=== PATIENT | female | born 1940 | race Caucasian/White ===

== ENCOUNTER → 2018-04-25 08:54 | Outpatient (CLI) | payer MEDICARE, SELFPAY ==
[2018-04-25 09:54] LABS: AST(SGOT) 19 U/L (15-37); Alanine Aminotransfer ALT/SGPT 20 U/L (13-56); Albumin, Serum 3.2 g/dL (3.2-5.0); Alkaline Phosphatase 67 U/L (45-117); Bilirubin, Direct 0.19 mg/dL (0.00-0.30); Cholesterol 155 mg/dL (200); Globulin 3.8 g/dL (2.2-4.2); High Density Lipoprotein 74 mg/dL; Triglycerides 50 mg/dL; Very Low Density Lipoprotein 10 mg/dL (5-40)
== END ==
PROVIDERS: Nurse Practitioner Family; Family Provider Family Medicine; PCP Family Medicine; Visit Provider Internal Medicine Cardiovascular Disease
DX: E78.5 Hyperlipidemia, unspecified (principal)
CPT/HCPCS: 36415; 80061; 80076

== ENCOUNTER 2018-05-07 22:23 | Emergency (ER) | payer MEDICARE, SELFPAY ==
[2018-05-07] VITALS (8 sets, daily range): BP systolic 107–169; BP diastolic 71–99; PULSE 85–108; RESP 15–29; TEMP 36.8–37.1; O2SAT 96–98; BMI 29.0
--- NOTE | 2018-05-07 22:25 | CT_ITS ---
STUDY: CT BRAIN WITHOUT CONTRAST REASON FOR EXAM: Female, 77 years old. Left facial droop and slurred speech. History of prior right CVA in 2016. Additional history of breast cancer and hypertension. RADIATION DOSAGE (If Supplied By Facility): CTDIvol = ( 44.99 ) mGy, DLP = ( 779.24 ) mGycm TECHNIQUE: Transaxial CT imaging of the brain was performed without administration of intravenous contrast material. Individualized dose optimization techniques were used for this CT. COMPARISON: Prior head CT exam of February 18, 2016 FINDINGS: Normal soft tissue structures. Normal calvarium. Mature demarcation of an old large right middle cerebral infarct involving the temporal lobe, insula, lateral basal ganglia and parietal lobe. Negative for a discernible new infarct zone. There are areas of decreased attenuation within the white matter tracts of the supratentorial brain, consistent with microvascular disease changes. Normal basal ganglia and thalami. Normal brainstem. Normal cerebellum. There is no intracranial hemorrhage. There are no findings of an acute ischemic infarction. Normal paranasal sinuses. CT/Brain/Head without Contrast IMPRESSION: Negative for acute hemorrhage, hematoma or demonstration of a new nonhemorrhagic infarct zone. 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 N.B. : The above information has been verbally conveyed by Farideh Gonzalez MD to Aquilino Reilly, Referring Physician, on 05/07/2018 22:47:01 (ET). Electronically Signed: Farideh Gonzalez MD at 22:48 EDT , Service support , N.B. : The above information has been verbally conveyed by Farideh Gonzalez MD to Aquilino Reilly, Referring Physician, on 05/07/2018 22:47:01 (ET).
--- NOTE | 2018-05-07 22:25 | RAD_ITS ---
STUDY: X-RAY CHEST REASON FOR EXAM: Female, 77 years old. Slurred speech and left facial droop. History of atrial fibrillation and right mastectomy secondary to malignancy. TECHNIQUE: Single AP portable view of the chest. COMPARISON: None. FINDINGS: The lungs are clear and expanded. There is no demonstrated pleural abnormality. Normal size heart. Normal mediastinum and gerry. Normal visualized pulmonary arteries. Normal visualized aortic arch and descending thoracic aorta. There are diffuse degenerative changes of the visualized thoracic spine. Normal visualized ribs, clavicles, and shoulders. There is no demonstrated abnormality of the visualized soft tissue structures of the upper abdomen. RAD/Chest 1 View IMPRESSION: No acute cardiopulmonary findings. Negative for consolidation, focal atelectasis or pleural effusion. Normal cardiac size. Electronically Signed: Farideh Gonzalez MD at 22:54 EDT , Service support ,
--- NOTE | 2018-05-07 22:25 | EKG12_ITS ---
Test Reason : STROKE Blood Pressure : / mmHG Vent. Rate : 090 BPM Atrial Rate : 090 BPM P-R Int : 144 ms QRS Dur : 062 ms QT Int : 358 ms P-R-T Axes : 074 038 011 degrees QTc Int : 437 ms Normal sinus rhythm Low voltage QRS Nonspecific ST abnormality Abnormal ECG Confirmed by KATIE PRAJAPATI, JAYLIN ([id number]), film editor MERI DEGROOT ([id number]) on 05/12/2018 3:43:06 PM Referred By: LB Confirmed By:JAYLIN WILSON MD
--- NOTE | 2018-05-07 22:34 | CT_ITS ---
STUDY: CTA OF THE BRAIN REASON FOR EXAM: Female, 77 years old. CVA, left facial droop and slurred speech, also left facial and arm twitch. Hx CVA 2016, breast cancer with right mastectomy. RADIATION DOSAGE (If Supplied By Facility): CTDIvol = ( 16.46 ) mGy, DLP = ( 605.91 ) mGycm TECHNIQUE: CT angiography was performed with a multi-detector CT scanner. Data acquisition was obtained from the skull base through the vertex following intravenous administration of 75 ml of ISO 370. MIP images were reconstructed from the axial data set. Post-processing of the angiographic images was performed, with multiplanar reformation and 3D reconstruction. Individualized dose optimization techniques were used for this CT. COMPARISON: 4.9.16 FINDINGS: Normal bilateral petrous carotid arteries. There is calcified plaque formation of the right cavernous carotid artery, with a mild stenosis (less than 50%). There is calcified plaque formation of the left cavernous carotid artery, with a mild stenosis (less than 50%). Normal right A1 segments of the anterior cerebral artery. Normal left A1 segments of the anterior cerebral artery. Normal intact anterior communicating artery (ACOM). Normal bilateral A2 segments of the anterior cerebral arteries. Normal right M1 and M2 segments of the middle cerebral arteries, with a normal M1 bifurcation. Normal left M1 and M2 segments of the middle cerebral arteries, with a normal M1 bifurcation. Normal right posterior communicating artery (PCOM). Normal left posterior communicating artery (PCOM). Normal bilateral vertebral arteries. Normal basilar artery with a normal basilar bifurcation. The visualized bilateral superior cerebellar (SCA) arteries are normal. Normal bilateral P1, P2 and visualized P3 segments of the posterior cerebral arteries. There is no demonstrated aneurysm of the [place]. Old left MCA infarct. IMPRESSION: There is calcified plaque formation of the right cavernous carotid artery, with a mild stenosis (less than 50%). There is calcified plaque formation of the left cavernous carotid artery, with a mild stenosis (less than 50%). Electronically Signed: Ricardo Toussaint MD at 23:36 EDT , Service support , STUDY: CTA NECK WITH CONTRAST REASON FOR EXAM: Female, 77 years old. CVA, left facial droop and slurred speech, also left facial and arm twitch. Hx CVA 2015, breast cancer with right mastectomy. RADIATION DOSAGE (If Supplied By Facility): CTDIvol = ( 16.46 ) mGy, DLP = ( 605.91 ) mGycm TECHNIQUE: CT angiography with multi-detector data acquisition was performed from the aortic arch to the skull base following intravenous administration of 75mL ml of Isovue 370 contrast. MIP images were reconstructed from the axial data set. Post-processing of the angiographic images was performed, with multiplanar reformation and 3D reconstruction. Individualized dose optimization techniques were used for this CT. COMPARISON: February 11, 2016 FINDINGS: AORTIC ARCH: Normal visualized aortic arch. Normal origins of the brachiocephalic, left common carotid, and left subclavian arteries. RIGHT CAROTID ARTERIES: Normal right common carotid artery (CCA). Normal right common carotid bulb. There is mild atherosclerotic plaque formation of the origin of the right internal carotid artery with less than 50% cross sectional diameter stenosis. Normal visualized cervical portion of the right internal carotid artery. Normal origin of the right external carotid artery (ECA). LEFT CAROTID ARTERIES: Normal left common carotid artery (CCA). Normal left common carotid bulb. There is mild atherosclerotic plaque formation of the origin of the left internal carotid artery with less than 50% cross sectional diameter stenosis. Normal visualized cervical portion of the left internal carotid artery. Normal origin of the left external carotid artery (ECA). VERTEBRAL ARTERIES: Normal bilateral vertebral arteries. CT/CTA Neck W/WO Contrast IMPRESSION: There is no hemodynamically significant stenosis. Calculated stenosis of the Right and Left ICA's is less than 50%. Electronically Signed: Ricardo Toussaint MD at 23:37 EDT , Service support ,
--- NOTE | 2018-05-07 22:34 | CT_ITS ---
STUDY: CTA OF THE BRAIN REASON FOR EXAM: Female, 77 years old. CVA, left facial droop and slurred speech, also left facial and arm twitch. Hx CVA 2016, breast cancer with right mastectomy. RADIATION DOSAGE (If Supplied By Facility): CTDIvol = ( 16.46 ) mGy, DLP = ( 605.91 ) mGycm TECHNIQUE: CT angiography was performed with a multi-detector CT scanner. Data acquisition was obtained from the skull base through the vertex following intravenous administration of 75 ml of ISO 370. MIP images were reconstructed from the axial data set. Post-processing of the angiographic images was performed, with multiplanar reformation and 3D reconstruction. Individualized dose optimization techniques were used for this CT. COMPARISON: 4.9.16 FINDINGS: Normal bilateral petrous carotid arteries. There is calcified plaque formation of the right cavernous carotid artery, with a mild stenosis (less than 50%). There is calcified plaque formation of the left cavernous carotid artery, with a mild stenosis (less than 50%). Normal right A1 segments of the anterior cerebral artery. Normal left A1 segments of the anterior cerebral artery. Normal intact anterior communicating artery (ACOM). Normal bilateral A2 segments of the anterior cerebral arteries. Normal right M1 and M2 segments of the middle cerebral arteries, with a normal M1 bifurcation. Normal left M1 and M2 segments of the middle cerebral arteries, with a normal M1 bifurcation. Normal right posterior communicating artery (PCOM). Normal left posterior communicating artery (PCOM). Normal bilateral vertebral arteries. Normal basilar artery with a normal basilar bifurcation. The visualized bilateral superior cerebellar (SCA) arteries are normal. Normal bilateral P1, P2 and visualized P3 segments of the posterior cerebral arteries. There is no demonstrated aneurysm of the [place]. Old left MCA infarct. IMPRESSION: There is calcified plaque formation of the right cavernous carotid artery, with a mild stenosis (less than 50%). There is calcified plaque formation of the left cavernous carotid artery, with a mild stenosis (less than 50%). Electronically Signed: Ricardo Toussaint MD at 23:36 EDT , Service support , STUDY: CTA NECK WITH CONTRAST REASON FOR EXAM: Female, 77 years old. CVA, left facial droop and slurred speech, also left facial and arm twitch. Hx CVA 2015, breast cancer with right mastectomy. RADIATION DOSAGE (If Supplied By Facility): CTDIvol = ( 16.46 ) mGy, DLP = ( 605.91 ) mGycm TECHNIQUE: CT angiography with multi-detector data acquisition was performed from the aortic arch to the skull base following intravenous administration of 75mL ml of Isovue 370 contrast. MIP images were reconstructed from the axial data set. Post-processing of the angiographic images was performed, with multiplanar reformation and 3D reconstruction. Individualized dose optimization techniques were used for this CT. COMPARISON: February 11, 2016 FINDINGS: AORTIC ARCH: Normal visualized aortic arch. Normal origins of the brachiocephalic, left common carotid, and left subclavian arteries. RIGHT CAROTID ARTERIES: Normal right common carotid artery (CCA). Normal right common carotid bulb. There is mild atherosclerotic plaque formation of the origin of the right internal carotid artery with less than 50% cross sectional diameter stenosis. Normal visualized cervical portion of the right internal carotid artery. Normal origin of the right external carotid artery (ECA). LEFT CAROTID ARTERIES: Normal left common carotid artery (CCA). Normal left common carotid bulb. There is mild atherosclerotic plaque formation of the origin of the left internal carotid artery with less than 50% cross sectional diameter stenosis. Normal visualized cervical portion of the left internal carotid artery. Normal origin of the left external carotid artery (ECA). VERTEBRAL ARTERIES: Normal bilateral vertebral arteries. CT/CTA Head W/WO Contrast IMPRESSION: There is no hemodynamically significant stenosis. Calculated stenosis of the Right and Left ICA's is less than 50%. Electronically Signed: Ricardo Toussaint MD at 23:37 EDT , Service support ,
[2018-05-07 22:50] LABS: Absolute Lymphocyte Count 3.38 X10^3/ul (0.83-4.51); Absolute Neutrophil Count 3.8 X10^3/uL (2.0-7.7); Basophil# 0.03 X10^3/uL; Basophil% 0.4 % (0-1); Eosinophil# 0.19 X10^3/uL; Eosinophils% 2.3 % (0-5); Hematocrit 39.8 % (37-47); Hemoglobin 12.9 g/dl (12.0-15.0); Lymphocyte # 3.38 X10^3/ul (4.0); Lymphocyte % 40.1 % (19-41); Mean Corp Hgb Conc 32.4 g/gl (32-36); Mean Corpuscular Volume 98.8 fL (81-99); Mean Platelet Vol. 10.9 fl (6.2-12.0); Monocyte# 1.07 X10^3/uL; Monocyte% 12.7 % (0-10); Neutrophil # 3.75 X10^3/uL (2.7-7.7); Neutrophil % 44.4 % (47-70); Platelet Count 233 K/mm3 (150-450); RBC Distribution Width CV 12.3 % (11.6-14.6); RBC Distribution Width SD 44.5 fl (35.1-43.9); Red Blood Count 4.03 M/mm3 (4.2-5.4); White Blood Count 8.4 K/mm3 (4.4-11.0)
[2018-05-07 22:51] LABS: POSITIVE COUNT NO; POSITIVE DIFFERENTIAL NO; POSITIVE MORPHOLOGY NO
--- NOTE | 2018-05-07 22:51 | ED.VISSUMM ---
- ER Visit Summary Date of Service: 05/07/18 Chief Complaint: Stroke symptoms History of Present Illness: The patient is a 77 F presents by EMS for acute symptoms of stroke starting at 9:30 PM. Witnessed by daughter slurred speech and facial drooping. EMS was called, within the arrival they state symptoms were resolved, however when she is placed on the gurney, facial droop return. Blood glucose 134, blood pressure systolic 160 over palp. Daughter states patient is left-hand dominant. Patient had stroke in 2016 requiring TPA. However currently on Eliquis twice a day for findings of atrial fibrillation at that time. Previously on amiodarone however taken off. Last dose of Eliquis was 5 PM today. There is no residual deficits from her stroke 2 years ago. Her speech changes are new. Physical Examination: General: Alert and oriented ?3, no acute distress HEENT: Normocephalic, atraumatic. Moist mucosa membranes. Right lip droop. patient occasional twitching of the left side of the face. There was left tongue abrasion no active bleeding. Neck: supple, nontender. Cardiovascular: Regular rate and rhythm, no murmurs Respiratory: Normal breath sounds, symmetric, no distress Abdomen: Soft, nontender, nondistended Extremities: Nontender, no edema, pulses intact ?4 Neuro: NIH equal 4 for right lip droop, dysarthria, left lower extremity drift, left arm and leg paresthesia. Test Results: EKG: Sinus rate of 90, artifacts noted. No ST or T-wave changes. CT head: No acute process. WBC 8.4, hemoglobin 12.9. Platelets 233. Creatinine 0.76. Troponin normal. Chest x-ray negative. Emergency Department Course and Treatment: Stroke protocol was activated. Discussed with neurology Dr. Pierre at 2235, and pending CT read at this time. Discuss patient is on Eliquis, therefore TPA is contraindicated at this time. Did recommend CTA head and neck for rule out thrombus. Blood pressure is 107/71 on arrival, she will be given IV fluids to increase her blood pressure. CT scan discussion with radiology shows no acute findings at this time. Discussed with neurology, findings of acute thrombus will need transfer to tertiary care for thrombectomy. If she has worsening symptoms in the ED would need transfer for neuro ICU. Discussed with daughter plan of care. 2300: CTA pending. Repeat NIH was a 5 for worsening left arm drift. Discussed with family for transfer, there he were okay with [facility]. I spoke with the ED physician, Dr. Davey, updated on findings and worsening symptoms and recommendations by neurology to go to tertiary care for neuro ICU. Discussed with focal twitching arms and face, he discussed typically anti-epileptic are not started by their facility, therefore will be held at this time. He accepts transfer to the ED for evaluation. Family updated. 2340: Patient being transported out the department. CTA results returned noting no acute thrombus, there was less than 50% narrowing of ICAs bilaterally. ED doc, Dr. Davey at [place] updated on findings. Treatment Plan: [] Disposition: Transfer to [facility] Impression: Acute CVA This note was generated with [employer] dictation software. It may contain incorrect words, spelling, and punctuation that were not noted in review of the chart prior to signing ED Disposition - Plan for ED Patient: Disposition: [facility] Chief Complaint: Neuro S/Sx Diagnosis: Acute CVA (cerebrovascular accident) Referrals: Earnest Powers MD [Primary Care Provider] -
--- NOTE | 2018-05-07 22:56 | ED.DCSUM_ITS ---
- ER Visit Summary Date of Service: 05/07/18 Chief Complaint: Stroke symptoms History of Present Illness: The patient is a 77 F presents by EMS for acute symptoms of stroke starting at 9:30 PM. Witnessed by daughter slurred speech and facial drooping. EMS was called, within the arrival they state symptoms were resolved, however when she is placed on the gurney, facial droop return. Blood glucose 134, blood pressure systolic 160 over palp. Daughter states patient is left-hand dominant. Patient had stroke in 2016 requiring TPA. However currently on Eliquis twice a day for findings of atrial fibrillation at that time. Previously on amiodarone however taken off. Last dose of Eliquis was 5 PM today. There is no residual deficits from her stroke 2 years ago. Her speech changes are new. Physical Examination: General: Alert and oriented ?3, no acute distress HEENT: Normocephalic, atraumatic. Moist mucosa membranes. Right lip droop. patient occasional twitching of the left side of the face. There was left tongue abrasion no active bleeding. Neck: supple, nontender. Cardiovascular: Regular rate and rhythm, no murmurs Respiratory: Normal breath sounds, symmetric, no distress Abdomen: Soft, nontender, nondistended Extremities: Nontender, no edema, pulses intact ?4 Neuro: NIH equal 4 for right lip droop, dysarthria, left lower extremity drift, left arm and leg paresthesia. Test Results: EKG: Sinus rate of 90, artifacts noted. No ST or T-wave changes. CT head: No acute process. WBC 8.4, hemoglobin 12.9. Platelets 233. Creatinine 0.76. Troponin normal. Chest x-ray negative. Emergency Department Course and Treatment: Stroke protocol was activated. Discussed with neurology Dr. Peirre at 2235, and pending CT read at this time. Discuss patient is on Eliquis, therefore TPA is contraindicated at this time. Did recommend CTA head and neck for rule out thrombus. Blood pressure is 107/71 on arrival, she will be given IV fluids to increase her blood pressure. CT scan discussion with radiology shows no acute findings at this time. Discussed with neurology, findings of acute thrombus will need transfer to tertiary care for thrombectomy. If she has worsening symptoms in the ED would need transfer for neuro ICU. Discussed with daughter plan of care. 2300: CTA pending. Repeat NIH was a 5 for worsening left arm drift. Discussed with family for transfer, there he were okay with [facility]. I spoke with the ED physician, Dr. Davey, updated on findings and worsening symptoms and recommendations by neurology to go to tertiary care for neuro ICU. Discussed with focal twitching arms and face, he discussed typically anti- epileptic are not started by their facility, therefore will be held at this time. He accepts transfer to the ED for evaluation. Family updated. 2340: Patient being transported out the department. CTA results returned noting no acute thrombus, there was less than 50% narrowing of ICAs bilaterally. ED doc, Dr. Davey at [place] updated on findings. Treatment Plan: [] Disposition: Transfer to [facility] Impression: Acute CVA This note was generated with [employer] dictation software. It may contain incorrect words, spelling, and punctuation that were not noted in review of the chart prior to signing ED Disposition - Plan for ED Patient: Disposition: [facility] Chief Complaint: Neuro S/Sx Diagnosis: Acute CVA (cerebrovascular accident) Referrals: Earnest Powers MD [Primary Care Provider] -
--- NOTE | 2018-05-07 23:05 | ED.RN ---
CONTACTING [facility] TRANSFER LINE FOR DR ASHER
[2018-05-07 23:06] LABS: Anion Gap 5 (5-15); BUN 17 mg/dL (7-18); BUN/Creat Ratio 22.3 RATIO (10-20); Chloride 107 mmol/L (98-107); Creatinine, Serum 0.76 mg/dL (0.55-1.02); EST Glomerular Filtration Rate 78 mL/min (>60); Est Glom Filt Rate - Afr Amer 94 mL/min (>60); Estimated Creatinine Clearance 40.68 ml/min; Glucose 126 mg/dL (74-106); Potassium 4.5 mmol/L (3.5-5.1); Sodium Level 144 mmol/L (136-145)
--- NOTE | 2018-05-07 23:08 | ED.RN ---
AMPARO AYALA DECLINED DOES NOT TAKE PT INSURANCE
[2018-05-07] MEDS: 0.45% Normal Saline 1,000 ML 150 ML IV (23:13)
[2018-05-07 23:14] LABS: International Normalized Ratio 1.4; Prothrombin Time (Protime)PT. 17.6 SECONDS (11.7-14.9)
[2018-05-07 23:15] LABS: Partial Thromboplast Time 33.2 Seconds (24.1-36.2)
[2018-05-07] MEDS: LORazepam 2 MG/ML Syringe 0.5 MG IV (23:33)
[2018-05-08 08:16] LABS: Bedside Glucose 122 mg/dL (70-110)
== END 2018-05-07 23:41 | disposition short-term general hospital (02) ==
PROVIDERS: Emergency Medicine; Emergency Provider Emergency Medicine; Family Provider Family Medicine; PCP Family Medicine
DX: I63.9 Cerebral infarction, unspecified (principal); R47.81 Slurred speech; R29.810 Facial weakness; R29.705 NIHSS score 5; E78.00 Pure hypercholesterolemia, unspecified; Z86.73 Personal history of transient ischemic attack (TIA), and cerebral infarction without residual deficits; Z79.01 Long term (current) use of anticoagulants; Z79.899 Other long term (current) drug therapy
CPT/HCPCS: 70450; 70496; 70498; 71045; 80048; 82962; 84484; 85025; 85610; 85730; 93005; 96361; 96374; 99285; 99291; J7030; J7040; Q9967; A4216

== ENCOUNTER 2018-05-09 13:40 | Inpatient (IN) | payer MEDICARE, SELFPAY ==
[2018-05-09 14:05] VITALS: BP 117/54; PULSE 68; RESP 16; TEMP 36.8; O2SAT 99; BMI 27.7
--- NOTE | 2018-05-09 14:47 | REHABEVAL_ITS ---
Admission Information Status Changes from Prescreening?: No changes Identified Actual Problem List:: Mobility Impaired, Self Care Deficit, BP, Hypertension Potential Problem List:: DVT, Bleeding, Infection, UTI, Aspiration, Falls, Skin Integrity, Depression Risk of Complications DVT: LMWH, CAYDEN Hose, Sequential Compression Device Bleeding: Monitor Lab Values, Nursing to Teach Precautions for anti-coagulation therapy., Wound, if applicable, to be assessed every shift., Stroke patients assessed for lethargy or change in status. Infection: Clinical Staff to Monitor for S/S of infection:, S/S of infection include fever, redness, warmth, etc. Urinary Tract Infection: Monitor for frequency, burning, discomfort, or incontinence., Nursing will obtain urine sample for urinalysis and C&S when ordered. Aspiration: Clinical staff will monitor for coughing, drooling, congestion., Speech will evaluate swallowing and dsyphasia., Nursing will monitor patient swallowing during meals. Falls: Patient will be evaluated for Fall Precautions, Patient will be placed on Fall Precautions as indicated per protocol. Skin Breakdown: Nursing will assess skin daily using assessment tool., Nursing will place on Skin Breakdown Precautions as indicated. Pain: Clinical staff will assess patient's pain level per protocol., Medications will be given, if needed, and the pain level reassessed., Other methods: Massage, distraction, decrease stimulus, etc. used PRN. Plan of Care Patient requires physician specializing in physical medicine and rehab oversight to provide close medical supervision of rehab issues including: Pain Management, Sleep Problems, Bowel and Bladder, Medical and co-morbidity Management, DVT prophylaxis, Rehabilitation Leadership, Coordination of treatment team Patient needs Physical Therapy: For a minimum of 1 hour, At least 5 out of 7 days Patient needs Physical Therapy to improve:: Mobility, Mobility, Mobility, Strengthening, Transfers, Stretching, ROM, Endurance, Stairs, Gait, Balance Patient needs Occupational Therapy: For a minimum of 1 hour, At least 5 out of 7 days Patient needs Occupational Therapy to improve ADL's incl.: Eating, Grooming, Bathing, Dressing, Toileting, Toilet transfers, Community Reintegration, Higher functioning activities, Household tasks, Adaptive Equipment, Splinting, Other activities as determined Patient requires speech therapy: For a minimum of 1 hour, At least 5 out of 7 days Patient requires speech therapy for: Swallowing, Cognition, Language Skills, Compensatory Strategies Patient requires 27/05 Rehabilitation Nursing for: Pain Issues, Identifying and preventing risk factors, Monitoring and reporting current medical conditions, Assisting with ambulation, transfer, and all ADL's, Teaching patients about disease process and medications, Family teaching, Providing safe environment, Bowel and Bladder Issues, Skin integrity, Medication Management Patient needs Electronic Typesetting Machine Operator/ Case Management for: Discharge Planning, Arranging Home Equipment or Services, Family Interventions Patient needs Dietary and Nutrition Services for: Adequate Nutrition, Nutritional Supplements, Nutritional Education Goals Patient will remain: free from falls, or injury at time of discharge. Patient will perform bed mobility at: MOD I level of assist. Patient will complete transfers from bed to chair at: MOD I level of assist. Patient will ambulate: 100 feet, with MOD I assist, with LRD Patient will complete upper body dressing at: MOD I level of assist. Patient will complete lower body dressing at: MOD I level of assist. Patient will complete toileting at: MOD I level of assist. Patient will perform bathing at: MOD I level of assist. Patient will complete grooming at: MOD I level of assist. Patient will complete home management skills at: MOD I level of assist. Patient will achieve: 12 stairs, at MOD I assist Patient will have pain level of: of 3 or less Patient's skin will: remain intact, free from infection. Patient will receive: adequate nutrition. Discharge Planning Pt Prognosis for Sig. Practical Improv. w/in Reasonable Time: Good Estimated Length of stay (days): 7 Anticipated D/C Destination: Home Was Preadmission Assessment Accurate?: Yes
--- NOTE | 2018-05-09 15:16 | PCM.PROGNOTE ---
<Coco Chen - Last Filed: 05/09/18 15:25> Subjective: Patient seen and examined. Complains of generalized weakness. States she overall feels tired. Complains of sore tongue secondary to biting tongue during seizure. Denies other specific complaints. Denies GI/ complaints. - Physical Exam General: Alert, Oriented x3, Cooperative, No apparent distress HEENT: Atraumatic, PERRLA, EOMI, Normocephalic Neck: Supple, No JVD, Negative Carotid Bruits Lungs: Clear to auscultation, Normal air movement Cardiovascular: Regular rate, No murmurs Abdomen: Bowel Sounds Present, Soft, Non Tender, Non-Distended Extremities: No clubbing, No cyanosis, No edema, Capillary Refill Less than 3 Seconds Skin: No rashes, No breakdown Musculoskeletal: No Tenderness to Palpation of Joints or Extremities Neurological: Cranial nerves II-XII grossly intact, Neuro grossly intact, - - Left side slightly weaker than right. Psych/Mental Status: Normal Affect, Appropriate Vital Signs Temp Pulse Resp BP Pulse Ox 98.3 F 68 16 117/54 L 99 05/09/18 14:05 05/09/18 14:05 05/09/18 14:05 05/09/18 14:05 05/09/18 14:05 Oxygen Delivery Method Room Air Weight: 73.3 kg Body Mass Index (BMI) 27.7 Finger Stick Blood Glucose 122 Medical Necessity - Tobacco Use Smoking Status: Never smoker Assessment/Plan Patient is a 77-year-old female admitted to rehab unit 05/09/2018 due to debility, weakness status post seizure. Patient initially presented to [facility] ER 05/07/2018 due to left facial droop and slurred speech. CT of brain showed no acute hemorrhage, hematoma or demonstration of new nonhemorrhagic infarct zone. 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 Patient was transferred to [facility] for further evaluation. She was not found to have a new infarct. 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 Her other past medical history includes paroxysmal atrial fibrillation, hypertension, hyperlipidemia, history of breast cancer. 1. Physical debility, weakness secondary to new diagnosis seizure disorder and previous CVA-patient had chronic mild left-sided weakness secondary to previous right MCA infarct approximately 2 years ago. Following new diagnosis seizure disorder, patient states left-sided weakness is increased. PT/OT. 2. Seizure disorder-no further episodes. Seizure precautions. Fall precautions. Continue Keppra regimen. 3. Paroxysmal atrial fibrillation-rate controlled. Continue Eliquis and metoprolol regimen. Patient follows with Dr. Carter. 4. Hypertension-stable, continue home metoprolol regimen. 5. Hyperlipidemia-continue statin. 6. History of breast cancer-approximately 30 years ago. Status post right mastectomy, radiation, chemotherapy. DVT prophylaxis-Eliquis. This patient was seen by REHANA Arceo under the supervision of Dr. Montgomery. <Alan Montgomery E - Last Filed: 05/09/18 18:21> - Physical Exam Vital Signs Temp Pulse Resp BP Pulse Ox 98.3 F 68 16 117/54 L 99 05/09/18 14:05 05/09/18 14:05 05/09/18 14:05 05/09/18 14:05 05/09/18 14:05 Oxygen Delivery Method Room Air Weight: 161 lb 9.581 oz Body Mass Index (BMI) 27.7 Finger Stick Blood Glucose 122 Assessment/Plan Hospitalist note: I am seeing this patient in conjunction with Coco Chen. I independently seen and examined the patient. Progress note above reviewed and I agree with above treatment plan. Patient was admitted to rehabilitation unit for debility, functional decline after she had a seizure. Initially, presented to our ER for left facial droop and slurred speech. Workup for stroke was unremarkable. She was found to have a right old MCA stroke. She was transferred to [facility] for evaluation. Acute and new stroke ruled out. She was diagnosed with probable poststroke seizure, was started on Keppra. At this time, she has no significant complaints. She is resting comfortably. Her vital signs are stable. - Physical Exam General: Alert, Oriented x3, Cooperative, No apparent distress. HEENT: Atraumatic, PERRLA, EOMI. Neck: Supple, No JVD, Negative Carotid Bruits, Trachea Midline, Thyroid Normal. Lungs: Clear to auscultation, Normal air movement, No rhonchi, No wheeze, No rales. Cardiovascular: Regular rate, Regular Rhythm, Normal S1, Normal S2, PMI Normal. Abdomen: Bowel Sounds Present, Soft, Non Tender, Non-Distended, No Hepato-splenomegaly. Extremities: No clubbing, No cyanosis, No edema Skin: No rashes, No breakdown Neurological: Cranial nerves are intact, minimal weakness in the left side. Vital Signs are stable. Assessment and plan: #1 physical debility/functional decline: Secondary to new seizure and history of CVA. Plan for PT OT according to rehab team. #2 history of stroke it is on the right MCA distribution, with resultant minimal left-sided body weakness. Patient is ambulating. Continue Eliquis and statins. #3 probable seizure disorder: This is poststroke, she is on Keppra. #4 proximal A. fib: Rate controlled, continue Eliquis and metoprolol. #5 other chronic medical problems: Stable, continue current medications as above. This note was generated with [employer] dictation software. It may contain incorrect words, spelling, and punctuation that were not noted in checking the note before signing. Code Visit Inpatient E&M: 63219 Subs Hosp L2
--- NOTE | 2018-05-09 15:25 | PN_ITS ---
<Coco Chen - Last Filed: 05/09/18 15:25> Subjective: Patient seen and examined. Complains of generalized weakness. States she overall feels tired. Complains of sore tongue secondary to biting tongue during seizure. Denies other specific complaints. Denies GI/ complaints. - Physical Exam General: Alert, Oriented x3, Cooperative, No apparent distress HEENT: Atraumatic, PERRLA, EOMI, Normocephalic Neck: Supple, No JVD, Negative Carotid Bruits Lungs: Clear to auscultation, Normal air movement Cardiovascular: Regular rate, No murmurs Abdomen: Bowel Sounds Present, Soft, Non Tender, Non-Distended Extremities: No clubbing, No cyanosis, No edema, Capillary Refill Less than 3 Seconds Skin: No rashes, No breakdown Musculoskeletal: No Tenderness to Palpation of Joints or Extremities Neurological: Cranial nerves II-XII grossly intact, Neuro grossly intact, - - Left side slightly weaker than right. Psych/Mental Status: Normal Affect, Appropriate Vital Signs Temp Pulse Resp BP Pulse Ox 98.3 F 68 16 117/54 L 99 05/09/18 14:05 05/09/18 14:05 05/09/18 14:05 05/09/18 14:05 05/09/18 14:05 Oxygen Delivery Method Room Air Weight: 73.3 kg Body Mass Index (BMI) 27.7 Finger Stick Blood Glucose 122 Medical Necessity - Tobacco Use Smoking Status: Never smoker Assessment/Plan Patient is a 77-year-old female admitted to rehab unit 05/09/2018 due to debility , weakness status post seizure. Patient initially presented to [facility] ER 05/07/2018 due to left facial droop and slurred speech. CT of brain showed no acute hemorrhage, hematoma or demonstration of new nonhemorrhagic infarct zone. 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 Patient was transferred to [facility] for further evaluation. She was not found to have a new infarct. 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 Her other past medical history includes paroxysmal atrial fibrillation, hypertension, hyperlipidemia, history of breast cancer. 1. Physical debility, weakness secondary to new diagnosis seizure disorder and previous CVA-patient had chronic mild left-sided weakness secondary to previous right MCA infarct approximately 2 years ago. Following new diagnosis seizure disorder, patient states left-sided weakness is increased. PT/OT. 2. Seizure disorder-no further episodes. Seizure precautions. Fall precautions. Continue Keppra regimen. 3. Paroxysmal atrial fibrillation-rate controlled. Continue Eliquis and metoprolol regimen. Patient follows with Dr. Carter. 4. Hypertension-stable, continue home metoprolol regimen. 5. Hyperlipidemia-continue statin. 6. History of breast cancer-approximately 30 years ago. Status post right mastectomy, radiation, chemotherapy. DVT prophylaxis-Eliquis. This patient was seen by REHANA Arceo under the supervision of Dr. Montgomery. <Alan Montgomery E - Last Filed: 05/09/18 18:21> - Physical Exam Vital Signs Temp Pulse Resp BP Pulse Ox 98.3 F 68 16 117/54 L 99 05/09/18 14:05 05/09/18 14:05 05/09/18 14:05 05/09/18 14:05 05/09/18 14:05 Oxygen Delivery Method Room Air Weight: 161 lb 9.581 oz Body Mass Index (BMI) 27.7 Finger Stick Blood Glucose 122 Assessment/Plan Hospitalist note: I am seeing this patient in conjunction with Coco Chen. I independently seen and examined the patient. Progress note above reviewed and I agree with above treatment plan. Patient was admitted to rehabilitation unit for debility , functional decline after she had a seizure. Initially, presented to our ER for left facial droop and slurred speech. Workup for stroke was unremarkable. She was found to have a right old MCA stroke. She was transferred to [facility] for evaluation. Acute and new stroke ruled out. She was diagnosed with probable poststroke seizure, was started on Keppra. At this time, she has no significant complaints. She is resting comfortably. Her vital signs are stable. - Physical Exam General: Alert, Oriented x3, Cooperative, No apparent distress. HEENT: Atraumatic, PERRLA, EOMI. Neck: Supple, No JVD, Negative Carotid Bruits, Trachea Midline, Thyroid Normal. Lungs: Clear to auscultation, Normal air movement, No rhonchi, No wheeze, No rales. Cardiovascular: Regular rate, Regular Rhythm, Normal S1, Normal S2, PMI Normal. Abdomen: Bowel Sounds Present, Soft, Non Tender, Non-Distended, No Hepato- splenomegaly. Extremities: No clubbing, No cyanosis, No edema Skin: No rashes, No breakdown Neurological: Cranial nerves are intact, minimal weakness in the left side. Vital Signs are stable. Assessment and plan: #1 physical debility/functional decline: Secondary to new seizure and history of CVA. Plan for PT OT according to rehab team. #2 history of stroke it is on the right MCA distribution, with resultant minimal left-sided body weakness. Patient is ambulating. Continue Eliquis and statins. #3 probable seizure disorder: This is poststroke, she is on Keppra. #4 proximal A. fib: Rate controlled, continue Eliquis and metoprolol. #5 other chronic medical problems: Stable, continue current medications as above. This note was generated with [employer] dictation software. It may contain incorrect words, spelling, and punctuation that were not noted in checking the note before signing. Code Visit Inpatient E&M: 07335 Subs Hosp L2
--- NOTE | 2018-05-09 17:02 | PCM.HP.COS ---
History of Present Illness Date of Admission: 05/09/18 Chief Complaint: Debility The Patient is a 77-year-old left handed female who was admitted to the rehab unit for rehabilitation for debility, and weakness after suffering a seizure. She has a history of paroxysmal atrial fibrillation, which she is on Eliquis 5mg BID, hypertension, hyperlipidemia, and a history of breast cancer. Initially the patient presented to [facility] ED on May 07, 2018 with left sided facial droop and slurred speech. A CT of the brain showed no acute hemorrhage, hematoma or demonstration of new nonhemorrhagic infarct zone. 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 CTA showed no acute thrombus, there was less than 50% narrowing of ICAs bilaterally. An Echo showed an EJ fraction of 55-60%. The patient was transferred to [facility] for further evaluation. She was not found to have a new infarct. 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 She lives with her daughter and her family in a one story home with a finished basement, the patient lives on the first floor, and the daughter and her family live in the finished basement. She has a ramp to get into the home, according to the daughter the home is handicapped assessable. The patient was previously completely functionally independent, doing all her own ADLs, walking and taking care of her home. She is admitted to the rehab unit in order to restore her previous level of functional independence. Past Medical History Past Medical History (Chronic Problems): Chronic Problems (Last Updated 05/03/18 @ 09:58 by Brook Shay) Paroxysmal atrial fibrillation (Chronic) History of colonoscopy (Chronic) Macular degeneration (Chronic) History of total mastectomy of right breast (Chronic) 1987 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 (Chronic) Gammopathy (Chronic) No M protein detected Left hemiparesis (Chronic) Obesity (BMI 30.0-34.9) (Chronic) Acute right MCA stroke (Chronic 02/08/16) 02/11/2016 Medical History: Medical History (Last Updated 05/03/18 @ 09:58 by Brook Shay) Paroxysmal atrial fibrillation (Chronic) I48.0 Macular degeneration (Chronic) H35.30 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 (Chronic) C50.911 Gammopathy (Chronic) D47.2 No M protein detected Left hemiparesis (Chronic) G81.94 Obesity (BMI 30.0-34.9) (Chronic) E66.9 Acute right MCA stroke (Chronic) Onset Date: 02/08/16 I63.511 02/11/2016 Cerebrovascular disease (Inactive) I67.9 Snoring (Inactive) R06.83 Allergies No Known Allergies Allergy (Verified 05/07/18 22:30) Home Medications: Ambulatory Orders Medication Instructions Recorded [place]-3 Fatty Acids/Fish Oil [Fish 1 tab PO DAILY 07/10/17 Oil 1,000 mg Capsule] Vit C/E/Zn/Coppr/Lutein/Zeaxan 1 each PO BID 05/07/18 [Preservision Areds 2 Softgel] Apixaban [Eliquis] 5 mg PO BID 05/09/18 Fluticasone 0.05% [Flonase Nasal 2 spray NASAL DAILY 05/09/18 Ald[place]] Levetiracetam [Keppra] 500 mg PO BID 05/09/18 Metoprolol(XL)Succ [Toprol Xl 12.5 mg PO DAILY 05/09/18 (Beta Talha)] Pravastatin [Pravachol] 40 mg PO QHS 05/09/18 Surgical History: Surgical History (Last Reviewed 02/24/18 @ 11:06 by Kaela Sam) History of colonoscopy (Chronic) Z98.890 History of total mastectomy of right breast (Chronic) Z90.11 1987 Surgical History: cataract - Both eyes, mastectomy - Right Breast, - - Pinning Left wrist Psychiatric History: 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 Lives: With Family Smoking Status: Never smoker Tobacco Use: Non-smoker Alcohol: None Drugs: None - *Family History Maternal Family History: Family History (Last Reviewed 02/24/18 @ 11:06 by Kaela Sam) Father CAD (coronary artery disease) Aunt Breast cancer Sister Uterine cancer History Items: Stroke - age 86 Paternal Family History: Family History (Last Reviewed 02/24/18 @ 11:06 by Kaela Sam) Father CAD (coronary artery disease) Aunt Breast cancer Sister Uterine cancer History Items: Heart Disease - age 69 Review of Systems Constitutional: Denies: Chills, Fever, Weight Change HEENT: Denies: Head Aches, Sinus Congestion, Sinus Drainage Cardiovascular: Denies: Chest Pain, Palpitations Respiratory: Denies: Cough, Shortness of breath at rest, Sputum production Gastrointestinal: Denies: Abdominal Pain, Nausea, Vomiting Genitourinary: Denies: Dysuria Musculoskeletal: Denies: Joint Pain, Joint Tenderness Skin: Denies: Rash, Wounds Neurological: Denies: Numbness, Tingling, Focal weakness Psychiatric: Denies: Anxiety, Depression, Homicidal Ideations, Suicidal Ideations Hematologic/ Lymphatic: Denies: Easy Bruising, Easy Bleeding VTE Information - Inpt Only VTE Present on Admission: No VTE Mechan Device Prophylaxis: SCD's, Knee High CAYDEN Hose VTE Pharm Prophylaxis ordered?: Yes - Physical Exam General: Alert, Oriented x3, Cooperative HEENT: Atraumatic, PERRLA, EOMI, Normocephalic Neck: Supple, No JVD, Negative Carotid Bruits Lungs: Clear to auscultation, Normal air movement Cardiovascular: Regular rate, No murmurs Abdomen: Bowel Sounds Present, Soft, Non Tender Extremities: No edema, Capillary Refill Less than 3 Seconds Skin: No rashes, No breakdown Musculoskeletal: No Tenderness to Palpation of Joints or Extremities Neurological: Cranial nerves II-XII grossly intact, Neuro grossly intact, - - Left side slightly weaker than right. Psych/Mental Status: Normal Affect, Appropriate, Alert and oriented to time, place, person, mood and affect Vital Signs Temp Pulse Resp BP Pulse Ox 98.3 F 68 16 117/54 L 99 05/09/18 14:05 05/09/18 14:05 05/09/18 14:05 05/09/18 14:05 05/09/18 14:05 Oxygen Delivery Method Room Air Weight: 73.3 kg Body Mass Index (BMI) 27.7 Finger Stick Blood Glucose 122 Active Medications Acetaminophen (Tylenol) 650 mg PO Q6H PRN PRN PRN Reason: Mild Pain (0-3/10)/Headache Apixaban (Eliquis) 5 mg PO BID DEJON Bisacodyl (Dulcolax) 10 mg RECTAL .PRN X 1 PRN PRN Reason: Constipation Fluticasone Propionate (Flonase Nasal [place]) 2 spray NASAL DAILY DEJON Levetiracetam (Keppra Tablet) 500 mg PO BID DEJON Lidocaine/Diphenhydr/Alum/Mg/Simeth () 10 ml PO Q3H PRN PRN PRN Reason: PAIN Magnesium Hydroxide (Milk Of Magnesia) 30 ml PO .PRN X 1 PRN PRN Reason: Constipation Metoprolol Succinate (Toprol Xl (Beta Talha)) 12.5 mg PO DAILY [facility] Multivitamins/Minerals (Ocuvite) 1 tablet PO BID [facility] Gmorq-1-Oysm Ethyl Esters (Lovaza) 1 gm PO DAILY [facility] Pravastatin Sodium (Pravachol) 40 mg PO QHS [facility] Senna/Docusate Sodium (Senokot-S, Shivani-Colace) 2 tablet PO BID [facility] Assessment/Plan Debility 2/2 weakness s/p seizure, 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 Goal of rehab is sabianist of functional independence. Plan: - Physical therapy for gait and balance - Occupational Therapy for ADLs - Speech therapy - As needed analgesics - Bowel protocol - Seizure disorder-no further episodes. Seizure precautions. Fall precautions. Continue Keppra 500mg BID - DVT prophylaxis: SCDs, Eliquis - Hypertension: Stable with good control, continue home dose of Metoprolol 12.5mg daily - Echo cardiogram -> EF 55-60% - Paroxysmal A-Fib -rate controlled. Continue Eliquis and metoprolol - HLD -continue home dose of statin. - Check LDL and Hba1c - Goal Hba1c <7%
--- NOTE | 2018-05-09 17:07 | HP.PCM.COS_ITS ---
History of Present Illness Date of Admission: 05/09/18 Chief Complaint: Debility The Patient is a 77-year-old left handed female who was admitted to the rehab unit for rehabilitation for debility, and weakness after suffering a seizure. She has a history of paroxysmal atrial fibrillation, which she is on Eliquis 5mg BID, hypertension, hyperlipidemia, and a history of breast cancer. Initially the patient presented to [facility] ED on May 07, 2018 with left sided facial droop and slurred speech. A CT of the brain showed no acute hemorrhage, hematoma or demonstration of new nonhemorrhagic infarct zone. 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 CTA showed no acute thrombus, there was less than 50% narrowing of ICAs bilaterally. An Echo showed an EJ fraction of 55-60%. The patient was transferred to [facility] for further evaluation. She was not found to have a new infarct. 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 She lives with her daughter and her family in a one story home with a finished basement, the patient lives on the first floor, and the daughter and her family live in the finished basement. She has a ramp to get into the home, according to the daughter the home is handicapped assessable. The patient was previously completely functionally independent, doing all her own ADLs, walking and taking care of her home. She is admitted to the rehab unit in order to restore her previous level of functional independence. Past Medical History Past Medical History (Chronic Problems): Chronic Problems (Last Updated 05/03/18 @ 09:58 by Brook Shay) Paroxysmal atrial fibrillation (Chronic) History of colonoscopy (Chronic) Macular degeneration (Chronic) History of total mastectomy of right breast (Chronic) 1987 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 (Chronic) Gammopathy (Chronic) No M protein detected Left hemiparesis (Chronic) Obesity (BMI 30.0-34.9) (Chronic) Acute right MCA stroke (Chronic 02/08/16) 02/11/2016 Medical History: Medical History (Last Updated 05/03/18 @ 09:58 by Brook Shay) Paroxysmal atrial fibrillation (Chronic) I48.0 Macular degeneration (Chronic) H35.30 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 (Chronic) C50.911 Gammopathy (Chronic) D47.2 No M protein detected Left hemiparesis (Chronic) G81.94 Obesity (BMI 30.0-34.9) (Chronic) E66.9 Acute right MCA stroke (Chronic) Onset Date: 02/08/16 I63.511 02/11/2016 Cerebrovascular disease (Inactive) I67.9 Snoring (Inactive) R06.83 Allergies No Known Allergies Allergy (Verified 05/07/18 22:30) Home Medications: Ambulatory Orders Medication Instructions Recorded Dow-3 Fatty Acids/Fish Oil [Fish 1 tab PO DAILY 07/10/17 Oil 1,000 mg Capsule] Vit C/E/Zn/Coppr/Lutein/Zeaxan 1 each PO BID 05/07/18 [Preservision Areds 2 Softgel] Apixaban [Eliquis] 5 mg PO BID 05/09/18 Fluticasone 0.05% [Flonase Nasal 2 spray NASAL DAILY 05/09/18 [place]] Levetiracetam [Keppra] 500 mg PO BID 05/09/18 Metoprolol(XL)Succ [Toprol Xl 12.5 mg PO DAILY 05/09/18 (Beta Talha)] Pravastatin [Pravachol] 40 mg PO QHS 05/09/18 Surgical History: Surgical History (Last Reviewed 02/24/18 @ 11:06 by Kaela Sam) History of colonoscopy (Chronic) Z98.890 History of total mastectomy of right breast (Chronic) Z90.11 1987 Surgical History: cataract - Both eyes, mastectomy - Right Breast, - - Pinning Left wrist Psychiatric History: No pertinent psych hx 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 Lives: With Family Smoking Status: Never smoker Tobacco Use: Non-smoker Alcohol: None Drugs: None - *Family History Maternal Family History: Family History (Last Reviewed 02/24/18 @ 11:06 by Kaela Sam) Father CAD (coronary artery disease) Aunt Breast cancer Sister Uterine cancer History Items: Stroke - age 86 Paternal Family History: Family History (Last Reviewed 02/24/18 @ 11:06 by Kaela Sam) Father CAD (coronary artery disease) Aunt Breast cancer Sister Uterine cancer History Items: Heart Disease - age 69 Review of Systems Constitutional: Denies: Chills, Fever, Weight Change HEENT: Denies: Head Aches, Sinus Congestion, Sinus Drainage Cardiovascular: Denies: Chest Pain, Palpitations Respiratory: Denies: Cough, Shortness of breath at rest, Sputum production Gastrointestinal: Denies: Abdominal Pain, Nausea, Vomiting Genitourinary: Denies: Dysuria Musculoskeletal: Denies: Joint Pain, Joint Tenderness Skin: Denies: Rash, Wounds Neurological: Denies: Numbness, Tingling, Focal weakness Psychiatric: Denies: Anxiety, Depression, Homicidal Ideations, Suicidal Ideations Hematologic/ Lymphatic: Denies: Easy Bruising, Easy Bleeding VTE Information - Inpt Only VTE Present on Admission: No VTE Mechan Device Prophylaxis: SCD's, Knee High CAYDEN Hose VTE Pharm Prophylaxis ordered?: Yes - Physical Exam General: Alert, Oriented x3, Cooperative HEENT: Atraumatic, PERRLA, EOMI, Normocephalic Neck: Supple, No JVD, Negative Carotid Bruits Lungs: Clear to auscultation, Normal air movement Cardiovascular: Regular rate, No murmurs Abdomen: Bowel Sounds Present, Soft, Non Tender Extremities: No edema, Capillary Refill Less than 3 Seconds Skin: No rashes, No breakdown Musculoskeletal: No Tenderness to Palpation of Joints or Extremities Neurological: Cranial nerves II-XII grossly intact, Neuro grossly intact, - - Left side slightly weaker than right. Psych/Mental Status: Normal Affect, Appropriate, Alert and oriented to time, place, person, mood and affect Vital Signs Temp Pulse Resp BP Pulse Ox 98.3 F 68 16 117/54 L 99 05/09/18 14:05 05/09/18 14:05 05/09/18 14:05 05/09/18 14:05 05/09/18 14:05 Oxygen Delivery Method Room Air Weight: 73.3 kg Body Mass Index (BMI) 27.7 Finger Stick Blood Glucose 122 Active Medications Acetaminophen (Tylenol) 650 mg PO Q6H PRN PRN PRN Reason: Mild Pain (0-3/10)/Headache Apixaban (Eliquis) 5 mg PO BID DEJON Bisacodyl (Dulcolax) 10 mg RECTAL .PRN X 1 PRN PRN Reason: Constipation Fluticasone Propionate (Flonase Nasal [place]) 2 spray NASAL DAILY DEJON Levetiracetam (Keppra Tablet) 500 mg PO BID DEJON Lidocaine/Diphenhydr/Alum/Mg/Simeth () 10 ml PO Q3H PRN PRN PRN Reason: PAIN Magnesium Hydroxide (Milk Of Magnesia) 30 ml PO .PRN X 1 PRN PRN Reason: Constipation Metoprolol Succinate (Toprol Xl (Beta Talha)) 12.[address] [facility] Multivitamins/Minerals (Ocuvite) [address] [facility] Iduzv-5-Appf Ethyl Esters (Lovaza) [address] [facility] Pravastatin Sodium (Pravachol) [address] [facility] Senna/Docusate Sodium (Senokot-S, Shivani-Colace) [address] [facility] Assessment/Plan Debility 2/2 weakness s/p seizure, 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 Goal of rehab is voodoo of functional independence. Plan: - Physical therapy for gait and balance - Occupational Therapy for ADLs - Speech therapy - As needed analgesics - Bowel protocol - Seizure disorder-no further episodes. Seizure precautions. Fall precautions. Continue Keppra 500mg BID - DVT prophylaxis: SCDs, Eliquis - Hypertension: Stable with good control, continue home dose of Metoprolol 12.5mg daily - Echo cardiogram -> EF 55-60% - Paroxysmal A-Fib -rate controlled. Continue Eliquis and metoprolol - HLD -continue home dose of statin. - Check LDL and Hba1c - Goal Hba1c <7%
--- NOTE | 2018-05-09 19:15 | NURSING ---
Patient aware she is a fall risk and must ask for staff assist and verbalized understanding.
[2018-05-09 19:45] VITALS: BP 106/71; PULSE 89; RESP 16; TEMP 36.7; O2SAT 93
[2018-05-09] MEDS: levETIRAcetam 500 MG Tablet PO (19:48)
[2018-05-09] MEDS: Pravastatin 40 MG Tablet PO (19:48)
[2018-05-09] MEDS: Senna/Docusate Sodium 1 Tablet 2 TABLET PO (19:48)
[2018-05-09] MEDS: APIXABAN 5 MG TABLET PO (19:48)
[2018-05-09] MEDS: Acetaminophen 325 MG Tablet 650 MG PO (19:55)
[2018-05-09] MEDS: BMX LIQUID 180 ML 10 ML PO (20:49)
[2018-05-10 06:53] VITALS: O2SAT 94
[2018-05-10 08:21] VITALS: BP 112/66; PULSE 70; RESP 16; TEMP 36.8; O2SAT 97
[2018-05-10 09:23] VITALS: BP 112/66; PULSE 70
[2018-05-10] MEDS: Metoprolol(XL)Succ 25 MG Tablet 12.5 MG PO (09:23)
[2018-05-10] MEDS: levETIRAcetam 500 MG Tablet PO ×2 (09:23→21:40)
[2018-05-10] MEDS: Omega-3 Acid Ethyl Esters 1 GM Capsule PO (09:23)
[2018-05-10] MEDS: APIXABAN 5 MG TABLET PO ×2 (09:23→21:40)
[2018-05-10] MEDS: BMX LIQUID 180 ML 10 ML PO (09:27)
[2018-05-10 09:29] LABS: Hematocrit 40.5 % (37-47); Mean Corp Hgb Conc 32.1 g/gl (32-36); Mean Corpuscular Hgb 31.7 pg (27.0-32.0); Mean Corpuscular Volume 98.8 fL (81-99); Mean Platelet Vol. 10.9 fl (6.2-12.0); Platelet Count 231 K/mm3 (150-450); RBC Distribution Width CV 12.3 % (11.6-14.6); RBC Distribution Width SD 44.5 fl (35.1-43.9); White Blood Count 9.7 K/mm3 (4.4-11.0)
[2018-05-10 09:32] LABS: Scan Indicated on CBC? Y/N NO
[2018-05-10 09:45] LABS: Anion Gap 8 (5-15); BUN 14 mg/dL (7-18); Calcium,Total 8.6 mg/dL (8.5-10.1); Chloride 107 mmol/L (98-107); Creatinine, Serum 0.82 mg/dL (0.55-1.02); EST Glomerular Filtration Rate 71 mL/min (>60); Est Glom Filt Rate - Afr Amer 86 mL/min (>60); Estimated Creatinine Clearance 49.61 ml/min; Glucose 111 mg/dL (74-106); Potassium 3.6 mmol/L (3.5-5.1); Sodium Level 144 mmol/L (136-145)
--- NOTE | 2018-05-10 17:31 | PCM.PN.HOSP ---
Subjective: Patient had no complain this morning. She denied any pain or distress. Objective: General: Alert, Oriented x3, Cooperative, No apparent distress HEENT: Atraumatic, PERRLA, EOMI, Normocephalic Neck: Supple, No JVD, Negative Carotid Bruits Lungs: Clear to auscultation, Normal air movement Cardiovascular: Regular rate, No murmurs Abdomen: Bowel Sounds Present, Soft, Non Tender, Non-Distended Extremities: No clubbing, No cyanosis, No edema, Capillary Refill Less than 3 Seconds Skin: No rashes, No breakdown Musculoskeletal: No Tenderness to Palpation of Joints or Extremities Neurological: A&O X 3. Cranial nerves are intact. Minimal weakness of left side. Psych/Mental Status: Normal Affect, Appropriate Vitals/I&O's: Vital Signs Temp Pulse Resp BP Pulse Ox 98.3 F 70 16 112/66 97 05/10/18 08:21 05/10/18 09:23 05/10/18 08:21 05/10/18 09:23 05/10/18 08:21 Oxygen Delivery Method Room Air Weight: 73.3 kg Body Mass Index (BMI) 27.7 Finger Stick Blood Glucose 122 Intake and Output for Last 24 Hours 05/08/18 05/09/18 05/10/18 23:59 23:59 23:59 Intake Total 480 / 480 Balance 480 / 480 Laboratory Results 05/10/18 09:15: WBC 9.7, RBC 4.10 L, Hgb 13.0, Hct 40.5, MCV 98.8, MCH 31.7, MCHC 32.1, RDW 12.3, RDW Differential 44.5 H, Plt Count 231, MPV 10.9 05/10/18 09:15: Sodium 144, Potassium 3.6, Chloride 107, Carbon Dioxide 29.0, Anion Gap 8, BUN 14, Creatinine 0.82, Estim Creat Clear Calc 49.61, Est GFR (MDRD) Af Amer 86, Est GFR (MDRD) Non-Af 71, BUN/Creatinine Ratio 17.0, Glucose 111 H, Calcium 8.6 Current Medications Acetaminophen (Tylenol) 650 mg PO Q6H PRN PRN PRN Reason: Mild Pain (0-3/10)/Headache Last Admin: 05/09/18 19:55 Dose: 650 mg Apixaban (Eliquis) 5 mg PO BID [facility] Last Admin: 05/10/18 09:23 Dose: 5 mg Bisacodyl (Dulcolax) 10 mg RECTAL .PRN X 1 PRN PRN Reason: Constipation Fluticasone Propionate (Flonase Nasal [place]) 2 spray NASAL DAILY [facility] Last Admin: 05/10/18 09:23 Dose: Not Given Levetiracetam (Keppra Tablet) 500 mg PO BID [facility] Last Admin: 05/10/18 09:23 Dose: 500 mg Lidocaine/Diphenhydr/Alum/Mg/Simeth () 10 ml PO Q3H PRN PRN PRN Reason: PAIN Last Admin: 05/10/18 09:27 Dose: 10 ml Magnesium Hydroxide (Milk Of Magnesia) 30 ml PO .PRN X 1 PRN PRN Reason: Constipation Metoprolol Succinate (Toprol Xl (Beta Talha)) 12.5 mg PO DAILY [facility] Last Admin: 05/10/18 09:23 Dose: 12.5 mg Multivitamins/Minerals (Ocuvite) 1 tablet PO BID [facility] Last Admin: 05/10/18 09:23 Dose: 1 tablet Uuarq-6-Rgpa Ethyl Esters (Lovaza) 1 gm PO DAILY [facility] Last Admin: 05/10/18 09:23 Dose: 1 gm Pravastatin Sodium (Pravachol) 40 mg PO QHS [facility] Last Admin: 05/09/18 19:48 Dose: 40 mg Senna/Docusate Sodium (Senokot-S, Shivani-Colace) 2 tablet PO BID [facility] Last Admin: 05/10/18 09:24 Dose: Not Given Medical Necessity - Tobacco Use Smoking Status: Never smoker Tobacco Use: Non-smoker Assessment/Plan Patient is a 77 year old female undergoing rehabilitation due to debility and weakness resulting from seizure developed likely from a prior CVA. #1 physical debility/functional decline: Secondary to new seizure and history of CVA. Patient is medically stable. Continue PT OT according to rehab team. #2 history of stroke from right MCA distribution, with resultant residual minimal left-sided weakness. Continue Eliquis and statins. #3 probable seizure disorder: This is poststroke, On Keppra. #4 proximal A. fib: Rate controlled, continue Eliquis and metoprolol. #5 other chronic medical problems: Stable, continue current medications as above.
--- NOTE | 2018-05-10 17:42 | PN_ITS ---
Subjective: Patient had no complain this morning. She denied any pain or distress. Objective: General: Alert, Oriented x3, Cooperative, No apparent distress HEENT: Atraumatic, PERRLA, EOMI, Normocephalic Neck: Supple, No JVD, Negative Carotid Bruits Lungs: Clear to auscultation, Normal air movement Cardiovascular: Regular rate, No murmurs Abdomen: Bowel Sounds Present, Soft, Non Tender, Non-Distended Extremities: No clubbing, No cyanosis, No edema, Capillary Refill Less than 3 Seconds Skin: No rashes, No breakdown Musculoskeletal: No Tenderness to Palpation of Joints or Extremities Neurological: A&O X 3. Cranial nerves are intact. Minimal weakness of left side. Psych/Mental Status: Normal Affect, Appropriate Vitals/I&O's: Vital Signs Temp Pulse Resp BP Pulse Ox 98.3 F 70 16 112/66 97 05/10/18 08:21 05/10/18 09:23 05/10/18 08:21 05/10/18 09:23 05/10/18 08:21 Oxygen Delivery Method Room Air Weight: 73.3 kg Body Mass Index (BMI) 27.7 Finger Stick Blood Glucose 122 Intake and Output for Last 24 Hours 05/08/18 05/09/18 05/10/18 23:59 23:59 23:59 Intake Total 480 / 480 Balance 480 / 480 Laboratory Results 05/10/18 09:15: WBC 9.7, RBC 4.10 L, Hgb 13.0, Hct 40.5, MCV 98.8, MCH 31.7, MCHC 32.1, RDW 12.3, RDW Differential 44.5 H, Plt Count 231, MPV 10.9 05/10/18 09:15: Sodium 144, Potassium 3.6, Chloride 107, Carbon Dioxide 29.0, Anion Gap 8, BUN 14, Creatinine 0.82, Estim Creat Clear Calc 49.61, Est GFR ( MDRD) Af Amer 86, Est GFR (MDRD) Non-Af 71, BUN/Creatinine Ratio 17.0, Glucose 111 H, Calcium 8.6 Current Medications Acetaminophen (Tylenol) 650 mg PO Q6H PRN PRN PRN Reason: Mild Pain (0-3/10)/Headache Last Admin: 05/09/18 19:55 Dose: 650 mg Apixaban (Eliquis) 5 mg PO BID [facility] Last Admin: 05/10/18 09:23 Dose: 5 mg Bisacodyl (Dulcolax) 10 mg RECTAL .PRN X 1 PRN PRN Reason: Constipation Fluticasone Propionate (Flonase Nasal [place]) 2 spray NASAL DAILY [facility] Last Admin: 05/10/18 09:23 Dose: Not Given Levetiracetam (Keppra Tablet) 500 mg PO BID [facility] Last Admin: 05/10/18 09:23 Dose: 500 mg Lidocaine/Diphenhydr/Alum/Mg/Simeth () 10 ml PO Q3H PRN PRN PRN Reason: PAIN Last Admin: 05/10/18 09:27 Dose: 10 ml Magnesium Hydroxide (Milk Of Magnesia) 30 ml PO .PRN X 1 PRN PRN Reason: Constipation Metoprolol Succinate (Toprol Xl (Beta Talha)) 12.5 mg PO DAILY [facility] Last Admin: 05/10/18 09:23 Dose: 12.5 mg Multivitamins/Minerals (Ocuvite) 1 tablet PO BID [facility] Last Admin: 05/10/18 09:23 Dose: 1 tablet Rkumd-3-Cvhn Ethyl Esters (Lovaza) 1 gm PO DAILY [facility] Last Admin: 05/10/18 09:23 Dose: 1 gm Pravastatin Sodium (Pravachol) 40 mg PO QHS [facility] Last Admin: 05/09/18 19:48 Dose: 40 mg Senna/Docusate Sodium (Senokot-S, Shivani-Colace) 2 tablet PO BID [facility] Last Admin: 05/10/18 09:24 Dose: Not Given Medical Necessity - Tobacco Use Smoking Status: Never smoker Tobacco Use: Non-smoker Assessment/Plan Patient is a 77 year old female undergoing rehabilitation due to debility and weakness resulting from seizure developed likely from a prior CVA. #1 physical debility/functional decline: Secondary to new seizure and history of CVA. Patient is medically stable. Continue PT OT according to rehab team. #2 history of stroke from right MCA distribution, with resultant residual minimal left-sided weakness. Continue Eliquis and statins. #3 probable seizure disorder: This is poststroke, On Keppra. #4 proximal A. fib: Rate controlled, continue Eliquis and metoprolol. #5 other chronic medical problems: Stable, continue current medications as above.
[2018-05-10 21:00] VITALS: BP 129/64; PULSE 68; RESP 16; TEMP 37; O2SAT 99; BMI 27.7
[2018-05-10] MEDS: Pravastatin 40 MG Tablet PO (21:40)
[2018-05-10] MEDS: Senna/Docusate Sodium 1 Tablet 2 TABLET PO (21:40)
--- NOTE | 2018-05-11 03:27 | NURSING ---
Reviewed and agree with LPNs fims and handoff
[2018-05-11 07:57] VITALS: O2SAT 98
[2018-05-11 08:04] VITALS: BP 103/62; PULSE 60; RESP 16; TEMP 36.6; O2SAT 98
[2018-05-11] MEDS: Magnesium Hydroxide 30 ML UDC PO (09:55)
[2018-05-11 11:18] VITALS: BP 115/57; PULSE 68
[2018-05-11] MEDS: Metoprolol(XL)Succ 25 MG Tablet 12.5 MG PO (11:18)
[2018-05-11] MEDS: APIXABAN 5 MG TABLET PO ×2 (11:18→20:04)
[2018-05-11] MEDS: levETIRAcetam 500 MG Tablet PO ×2 (11:19→20:04)
[2018-05-11] MEDS: Omega-3 Acid Ethyl Esters 1 GM Capsule PO (11:19)
[2018-05-11 12:44] VITALS: BMI 27.7
[2018-05-11 18:22] VITALS: BP 117/64; PULSE 82; RESP 18; TEMP 36.9; O2SAT 100
[2018-05-11] MEDS: Pravastatin 40 MG Tablet PO (20:04)
[2018-05-11] MEDS: BMX LIQUID 180 ML 10 ML PO (20:05)
--- NOTE | 2018-05-11 20:11 | PCM.PN.HOSP ---
Subjective: Patient complain of nausea and vomiting. Nursing Staff reports constipation with a small stool today. Objective: Objective: General: Alert, Oriented x3, Cooperative, No apparent distress HEENT: Atraumatic, PERRLA, EOMI, Normocephalic Neck: Supple, No JVD, Negative Carotid Bruits Lungs: Clear to auscultation, Normal air movement Cardiovascular: Regular rate, No murmurs Abdomen: Bowel Sounds Present, Soft, Non Tender, Non-Distended Extremities: No clubbing, No cyanosis, No edema, Capillary Refill Less than 3 Seconds Skin: No rashes, No breakdown Musculoskeletal: No Tenderness to Palpation of Joints or Extremities Neurological: A&O X 3. Cranial nerves are intact. Minimal weakness of left extremities; with left upper extremity worse done left lower extremity. Psych/Mental Status: Normal Affect, Appropriate Vitals/I&O's: Vital Signs Temp Pulse Resp BP Pulse Ox 98.4 F 82 18 117/64 100 05/11/18 18:22 05/11/18 18:22 05/11/18 18:22 05/11/18 18:22 05/11/18 18:22 Oxygen Delivery Method Room Air Weight: 73.3 kg Body Mass Index (BMI) 27.7 Finger Stick Blood Glucose 122 Intake and Output for Last 24 Hours 05/09/18 05/10/18 05/11/18 23:59 23:59 23:59 Intake Total 720 / 720 800 / 800 Balance 720 / 720 800 / 800 Current Medications Acetaminophen (Tylenol) 650 mg PO Q6H PRN PRN PRN Reason: Mild Pain (0-3/10)/Headache Last Admin: 05/09/18 19:55 Dose: 650 mg Apixaban (Eliquis) 5 mg PO BID [facility] Last Admin: 05/11/18 20:04 Dose: 5 mg Bisacodyl (Dulcolax) 10 mg RECTAL .PRN X 1 PRN PRN Reason: Constipation Fluticasone Propionate (Flonase Nasal [place]) 2 spray NASAL DAILY [facility] Last Admin: 05/11/18 11:17 Dose: Not Given Levetiracetam (Keppra Tablet) 500 mg PO BID [facility] Last Admin: 05/11/18 20:04 Dose: 500 mg Lidocaine/Diphenhydr/Alum/Mg/Simeth () 10 ml PO Q3H PRN PRN PRN Reason: PAIN Last Admin: 05/11/18 20:05 Dose: 10 ml Magnesium Hydroxide (Milk Of Magnesia) 30 ml PO .PRN X 1 PRN PRN Reason: Constipation Last Admin: 05/11/18 09:55 Dose: 30 ml Metoprolol Succinate (Toprol Xl (Beta Talha)) 12.5 mg PO DAILY [facility] Last Admin: 05/11/18 11:18 Dose: 12.5 mg Multivitamins/Minerals (Ocuvite) 1 tablet PO BID [facility] Last Admin: 05/11/18 20:05 Dose: 1 tablet Rejjh-0-Vubj Ethyl Esters (Lovaza) 1 gm PO DAILY [facility] Last Admin: 05/11/18 11:19 Dose: 1 gm Pravastatin Sodium (Pravachol) 40 mg PO QHS [facility] Last Admin: 05/11/18 20:04 Dose: 40 mg Senna/Docusate Sodium (Senokot-S, Shivani-Colace) 2 tablet PO BID [facility] Last Admin: 05/11/18 17:36 Dose: Not Given Medical Necessity - Tobacco Use Smoking Status: Never smoker Tobacco Use: Non-smoker Assessment/Plan Patient is a 77 year old female undergoing rehabilitation due to debility and weakness resulting from seizure developed likely from a prior CVA. Also, patient with abdominal intolerance secondary to constipation. #1 physical debility/functional decline: Secondary to new seizure and history of CVA. Patient is medically stable. Continue PT, OT according to rehab team. #2. Constipation: Continue milk of magnesia. Zofran ordered for nausea #3 history of stroke from right MCA distribution, with resultant residual minimal left-sided weakness. Continue Eliquis and statins. #4 probable seizure disorder: This is poststroke, On Keppra. #5 proximal A. fib: Rate controlled, continue Eliquis and metoprolol. #6 other chronic medical problems: Stable, continue current medications as above. #7 DVT Prophylaxis: Not indicated. On Eliquis. Code Visit Inpatient E&M: 06968 Subs Hosp L2
--- NOTE | 2018-05-11 20:28 | PN_ITS ---
Subjective: Patient complain of nausea and vomiting. Nursing Staff reports constipation with a small stool today. Objective: Objective: General: Alert, Oriented x3, Cooperative, No apparent distress HEENT: Atraumatic, PERRLA, EOMI, Normocephalic Neck: Supple, No JVD, Negative Carotid Bruits Lungs: Clear to auscultation, Normal air movement Cardiovascular: Regular rate, No murmurs Abdomen: Bowel Sounds Present, Soft, Non Tender, Non-Distended Extremities: No clubbing, No cyanosis, No edema, Capillary Refill Less than 3 Seconds Skin: No rashes, No breakdown Musculoskeletal: No Tenderness to Palpation of Joints or Extremities Neurological: A&O X 3. Cranial nerves are intact. Minimal weakness of left extremities; with left upper extremity worse done left lower extremity. Psych/Mental Status: Normal Affect, Appropriate Vitals/I&O's: Vital Signs Temp Pulse Resp BP Pulse Ox 98.4 F 82 18 117/64 100 05/11/18 18:22 05/11/18 18:22 05/11/18 18:22 05/11/18 18:22 05/11/18 18:22 Oxygen Delivery Method Room Air Weight: 73.3 kg Body Mass Index (BMI) 27.7 Finger Stick Blood Glucose 122 Intake and Output for Last 24 Hours 05/09/18 05/10/18 05/11/18 23:59 23:59 23:59 Intake Total 720 / 720 800 / 800 Balance 720 / 720 800 / 800 Current Medications Acetaminophen (Tylenol) 650 mg PO Q6H PRN PRN PRN Reason: Mild Pain (0-3/10)/Headache Last Admin: 05/09/18 19:55 Dose: 650 mg Apixaban (Eliquis) 5 mg PO BID [facility] Last Admin: 05/11/18 20:04 Dose: 5 mg Bisacodyl (Dulcolax) 10 mg RECTAL .PRN X 1 PRN PRN Reason: Constipation Fluticasone Propionate (Flonase Nasal [place]) 2 spray NASAL DAILY [facility] Last Admin: 05/11/18 11:17 Dose: Not Given Levetiracetam (Keppra Tablet) 500 mg PO BID [facility] Last Admin: 05/11/18 20:04 Dose: 500 mg Lidocaine/Diphenhydr/Alum/Mg/Simeth () 10 ml PO Q3H PRN PRN PRN Reason: PAIN Last Admin: 05/11/18 20:05 Dose: 10 ml Magnesium Hydroxide (Milk Of Magnesia) 30 ml PO .PRN X 1 PRN PRN Reason: Constipation Last Admin: 05/11/18 09:55 Dose: 30 ml Metoprolol Succinate (Toprol Xl (Beta Talha)) 12.5 mg PO DAILY [facility] Last Admin: 05/11/18 11:18 Dose: 12.5 mg Multivitamins/Minerals (Ocuvite) 1 tablet PO BID [facility] Last Admin: 05/11/18 20:05 Dose: 1 tablet Wihcc-8-Gzqz Ethyl Esters (Lovaza) 1 gm PO DAILY [facility] Last Admin: 05/11/18 11:19 Dose: 1 gm Pravastatin Sodium (Pravachol) 40 mg PO QHS [facility] Last Admin: 05/11/18 20:04 Dose: 40 mg Senna/Docusate Sodium (Senokot-S, Shivani-Colace) 2 tablet PO BID [facility] Last Admin: 05/11/18 17:36 Dose: Not Given Medical Necessity - Tobacco Use Smoking Status: Never smoker Tobacco Use: Non-smoker Assessment/Plan Patient is a 77 year old female undergoing rehabilitation due to debility and weakness resulting from seizure developed likely from a prior CVA. Also, patient with abdominal intolerance secondary to constipation. #1 physical debility/functional decline: Secondary to new seizure and history of CVA. Patient is medically stable. Continue PT, OT according to rehab team. #2. Constipation: Continue milk of magnesia. Zofran ordered for nausea #3 history of stroke from right MCA distribution, with resultant residual minimal left-sided weakness. Continue Eliquis and statins. #4 probable seizure disorder: This is poststroke, On Keppra. #5 proximal A. fib: Rate controlled, continue Eliquis and metoprolol. #6 other chronic medical problems: Stable, continue current medications as above. #7 DVT Prophylaxis: Not indicated. On Eliquis. Code Visit Inpatient E&M: 38812 Subs Hosp L2
[2018-05-12 07:25] VITALS: O2SAT 96
[2018-05-12 07:56] VITALS: BP 125/71; PULSE 80; RESP 14; TEMP 36.5; O2SAT 95
[2018-05-12 10:10] VITALS: BP 125/71; PULSE 80
[2018-05-12] MEDS: APIXABAN 5 MG TABLET PO ×2 (10:10→20:39)
[2018-05-12] MEDS: Omega-3 Acid Ethyl Esters 1 GM Capsule PO (10:10)
[2018-05-12] MEDS: levETIRAcetam 500 MG Tablet PO ×2 (10:10→20:39)
[2018-05-12] MEDS: Metoprolol(XL)Succ 25 MG Tablet 12.5 MG PO (10:10)
[2018-05-12] MEDS: Fluticasone 0.05% 1 SPRAY NASAL.SRY 2 SPRAY NASAL (10:11)
[2018-05-12] MEDS: BMX LIQUID 180 ML 10 ML PO (10:15)
--- NOTE | 2018-05-12 10:19 | PCM.PN.NEU ---
Subjective: Patient seen and examined. No issues over night. Tolerating therapy. No seizure activity, noted since her first seizure on May 07. She is on Keppra 500mg BID, tolerating medication. - Physical Exam General: Alert, Oriented x3, Cooperative HEENT: Atraumatic, PERRLA, EOMI, Normocephalic Neck: Supple, No JVD, Negative Carotid Bruits Lungs: Clear to auscultation, Normal air movement Cardiovascular: Regular rate, No murmurs Abdomen: Bowel Sounds Present, Soft, Non Tender Extremities: No edema, Capillary Refill Less than 3 Seconds Skin: No rashes, No breakdown Musculoskeletal: No Tenderness to Palpation of Joints or Extremities Neurological: Cranial nerves II-XII grossly intact Psych/Mental Status: Normal Affect, Appropriate, Alert and oriented to time, place, person, mood and affect Vital Signs Temp Pulse Resp BP Pulse Ox 97.7 F L 80 14 125/71 H 95 05/12/18 07:56 05/12/18 10:10 05/12/18 07:56 05/12/18 10:10 05/12/18 07:56 Oxygen Delivery Method Room Air Weight: 73.3 kg Body Mass Index (BMI) 27.7 Finger Stick Blood Glucose 122 Intake and Output for Last 24 Hours 05/10/18 05/11/18 05/12/18 23:59 23:59 23:59 Intake Total 720 / 720 800 / 800 260 / 260 Balance 720 / 720 800 / 800 260 / 260 Active Medications Acetaminophen (Tylenol) 650 mg PO Q6H PRN PRN PRN Reason: Mild Pain (0-3/10)/Headache Last Admin: 05/09/18 19:55 Dose: 650 mg Apixaban (Eliquis) 5 mg PO BID [facility] Last Admin: 05/12/18 10:10 Dose: 5 mg Bisacodyl (Dulcolax) 10 mg RECTAL .PRN X 1 PRN PRN Reason: Constipation Fluticasone Propionate (Flonase Nasal [place]) 2 spray NASAL DAILY [facility] Last Admin: 05/12/18 10:11 Dose: 1 applicatio Levetiracetam (Keppra Tablet) 500 mg PO BID [facility] Last Admin: 05/12/18 10:10 Dose: 500 mg Lidocaine/Diphenhydr/Alum/Mg/Simeth () 10 ml PO Q3H PRN PRN PRN Reason: PAIN Last Admin: 05/12/18 10:15 Dose: 10 ml Magnesium Hydroxide (Milk Of Magnesia) 30 ml PO .PRN X 1 PRN PRN Reason: Constipation Last Admin: 05/11/18 09:55 Dose: 30 ml Metoprolol Succinate (Toprol Xl (Beta Talha)) 12.5 mg PO DAILY [facility] Last Admin: 05/12/18 10:10 Dose: 12.5 mg Multivitamins/Minerals (Ocuvite) 1 tablet PO BID [facility] Last Admin: 05/12/18 10:10 Dose: 1 tablet Snueb-0-Wpup Ethyl Esters (Lovaza) 1 gm PO DAILY [facility] Last Admin: 05/12/18 10:10 Dose: 1 gm Ondansetron HCl (Zofran Odt) 8 mg PO Q8H PRN PRN PRN Reason: NAUSEA Pravastatin Sodium (Pravachol) 40 mg PO QHS [facility] Last Admin: 05/11/18 20:04 Dose: 40 mg Senna/Docusate Sodium (Senokot-S, Shivani-Colace) 2 tablet PO BID [facility] Last Admin: 05/12/18 10:11 Dose: Not Given Medical Necessity - Tobacco Use Smoking Status: Never smoker Tobacco Use: Non-smoker Assessment/Plan Debility 2/2 weakness s/p seizure, 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 Goal of rehab is jewish of functional independence. Plan: - Physical therapy for gait and balance - Occupational Therapy for ADLs - Speech therapy - As needed analgesics - Bowel protocol - Seizure disorder-no further episodes. Seizure precautions. Fall precautions. Continue Keppra 500mg BID - DVT prophylaxis: SCDs, Eliquis - Hypertension: Stable with good control, continue home dose of Metoprolol 12.5mg daily - Echo cardiogram -> EF 55-60% - Paroxysmal A-Fib -rate controlled. Continue Eliquis and metoprolol - HLD -continue home dose of statin. - Check LDL and Hba1c - Goal Hba1c <7%
--- NOTE | 2018-05-12 10:29 | PN.NEURO_ITS ---
Subjective: Patient seen and examined. No issues over night. Tolerating therapy. No seizure activity, noted since her first seizure on May 07. She is on Keppra 500mg BID, tolerating medication. - Physical Exam General: Alert, Oriented x3, Cooperative HEENT: Atraumatic, PERRLA, EOMI, Normocephalic Neck: Supple, No JVD, Negative Carotid Bruits Lungs: Clear to auscultation, Normal air movement Cardiovascular: Regular rate, No murmurs Abdomen: Bowel Sounds Present, Soft, Non Tender Extremities: No edema, Capillary Refill Less than 3 Seconds Skin: No rashes, No breakdown Musculoskeletal: No Tenderness to Palpation of Joints or Extremities Neurological: Cranial nerves II-XII grossly intact Psych/Mental Status: Normal Affect, Appropriate, Alert and oriented to time, place, person, mood and affect Vital Signs Temp Pulse Resp BP Pulse Ox 97.7 F L 80 14 125/71 H 95 05/12/18 07:56 05/12/18 10:10 05/12/18 07:56 05/12/18 10:10 05/12/18 07:56 Oxygen Delivery Method Room Air Weight: 73.3 kg Body Mass Index (BMI) 27.7 Finger Stick Blood Glucose 122 Intake and Output for Last 24 Hours 05/10/18 05/11/18 05/12/18 23:59 23:59 23:59 Intake Total 720 / 720 800 / 800 260 / 260 Balance 720 / 720 800 / 800 260 / 260 Active Medications Acetaminophen (Tylenol) 650 mg PO Q6H PRN PRN PRN Reason: Mild Pain (0-3/10)/Headache Last Admin: 05/09/18 19:55 Dose: 650 mg Apixaban (Eliquis) 5 mg PO BID [facility] Last Admin: 05/12/18 10:10 Dose: 5 mg Bisacodyl (Dulcolax) 10 mg RECTAL .PRN X 1 PRN PRN Reason: Constipation Fluticasone Propionate (Flonase Nasal [place]) 2 spray NASAL DAILY [facility] Last Admin: 05/12/18 10:11 Dose: 1 applicatio Levetiracetam (Keppra Tablet) 500 mg PO BID [facility] Last Admin: 05/12/18 10:10 Dose: 500 mg Lidocaine/Diphenhydr/Alum/Mg/Simeth () 10 ml PO Q3H PRN PRN PRN Reason: PAIN Last Admin: 05/12/18 10:15 Dose: 10 ml Magnesium Hydroxide (Milk Of Magnesia) 30 ml PO .PRN X 1 PRN PRN Reason: Constipation Last Admin: 05/11/18 09:55 Dose: 30 ml Metoprolol Succinate (Toprol Xl (Beta Talha)) 12.5 mg PO DAILY [facility] Last Admin: 05/12/18 10:10 Dose: 12.5 mg Multivitamins/Minerals (Ocuvite) 1 tablet PO BID [facility] Last Admin: 05/12/18 10:10 Dose: 1 tablet Ibdqm-2-Idif Ethyl Esters (Lovaza) 1 gm PO DAILY [facility] Last Admin: 05/12/18 10:10 Dose: 1 gm Ondansetron HCl (Zofran Odt) 8 mg PO Q8H PRN PRN PRN Reason: NAUSEA Pravastatin Sodium (Pravachol) 40 mg PO QHS [facility] Last Admin: 05/11/18 20:04 Dose: 40 mg Senna/Docusate Sodium (Senokot-S, Shivani-Colace) 2 tablet PO BID [facility] Last Admin: 05/12/18 10:11 Dose: Not Given Medical Necessity - Tobacco Use Smoking Status: Never smoker Tobacco Use: Non-smoker Assessment/Plan Debility 2/2 weakness s/p seizure, 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 Goal of rehab is jain of functional independence. Plan: - Physical therapy for gait and balance - Occupational Therapy for ADLs - Speech therapy - As needed analgesics - Bowel protocol - Seizure disorder-no further episodes. Seizure precautions. Fall precautions. Continue Keppra 500mg BID - DVT prophylaxis: SCDs, Eliquis - Hypertension: Stable with good control, continue home dose of Metoprolol 12.5mg daily - Echo cardiogram -> EF 55-60% - Paroxysmal A-Fib -rate controlled. Continue Eliquis and metoprolol - HLD -continue home dose of statin. - Check LDL and Hba1c - Goal Hba1c <7%
--- NOTE | 2018-05-12 12:55 | CASEMGMT ---
Insurance Clinical information faxed to insurance. Pending continued stay approval. Auth# has not been obtained at this time. Stacey HUTTON, COREMAKING MACHINE OPERATOR
[2018-05-12 13:40] VITALS: BMI 27.7
--- NOTE | 2018-05-12 16:07 | CHAPLAIN ---
Type of Pastoral Visit _x__ Initial Visit ___ Follow-up Visit ___ On-call Visit ___ General Patient Visit ___ Spiritual Assessment ___ Family Conference ___ Bereavement ___ Rapid Response ___ Code Blue ___ Other (describe below) Pastoral Care Referral From _x__ Patient ___ Family ___ Nurse ___ Physician ___ Linen Grader ___ Oxygen Tank Filler ___ Other (describe below) Sacrament/Intervention _x__ Active listening ___ Anointing ___ Zoroastrian ___ Bereavement ___ Communion ___ Mayela exploration ___ _x__ Life review _x__ Prayer ___ Reconciliation ___ Sacrament of Sick _x__ Supportive presence ___ Wedding ___ Other (describe below) Pastoral Comments patient has had major change in her life over the past year including of spouse, selling and moving of home, stroke and this last episode; pt has family and gnosticism support and appreciates spiritual care
[2018-05-12 19:38] VITALS: BP 104/52; PULSE 73; RESP 16; TEMP 36.5; O2SAT 99
[2018-05-12 20:34] VITALS: BMI 27.7
[2018-05-12] MEDS: Pravastatin 40 MG Tablet PO (20:39)
[2018-05-12 20:57] VITALS: PULSE 73; RESP 16; O2SAT 99
--- NOTE | 2018-05-13 02:36 | NURSING ---
Reviewed and agree with FIRE SUPPRESSION CAPTAIN documentation and FIMS charting.
[2018-05-13 08:10] VITALS: PULSE 63
[2018-05-13] MEDS: APIXABAN 5 MG TABLET PO ×2 (08:10→20:01)
[2018-05-13] MEDS: levETIRAcetam 500 MG Tablet PO ×2 (08:10→20:01)
[2018-05-13] MEDS: Omega-3 Acid Ethyl Esters 1 GM Capsule PO (08:10)
[2018-05-13] MEDS: Metoprolol(XL)Succ 25 MG Tablet 12.5 MG PO (08:10)
[2018-05-13] MEDS: Fluticasone 0.05% 1 SPRAY NASAL.SRY 2 SPRAY NASAL (08:12)
[2018-05-13] MEDS: BMX LIQUID 180 ML 10 ML PO ×2 (08:13→20:01)
[2018-05-13] MEDS: Acetaminophen 325 MG Tablet 650 MG PO (08:18)
[2018-05-13 10:00] VITALS: BP 93/65; PULSE 59; RESP 18; TEMP 36.4; O2SAT 100
--- NOTE | 2018-05-13 15:59 | PCM.PN.HOSP ---
Subjective: Feels good. Asks if getting acupuncture (w currents) can cause seizures. Vitals/I&O's: Vital Signs Temp Pulse Resp BP Pulse Ox 36.4 C L 59 L 18 93/65 100 05/13/18 10:00 05/13/18 10:00 05/13/18 10:00 05/13/18 10:00 05/13/18 10:00 Oxygen Delivery Method Room Air Weight: 73.3 kg Body Mass Index (BMI) 27.7 Finger Stick Blood Glucose 122 Intake and Output for Last 24 Hours 05/11/18 05/12/18 05/13/18 23:59 23:59 23:59 Intake Total 800 / 800 480 / 480 240 / 240 Balance 800 / 800 480 / 480 240 / 240 General: Alert, Cooperative, No apparent distress, - - up in chair doing a word search. HEENT: Atraumatic, Normocephalic Psych/Mental Status: Normal Affect, Appropriate Current Medications Acetaminophen (Tylenol) 650 mg PO Q6H PRN PRN PRN Reason: Mild Pain (0-3/10)/Headache Last Admin: 05/13/18 08:18 Dose: 650 mg Apixaban (Eliquis) 5 mg PO BID [facility] Last Admin: 05/13/18 08:10 Dose: 5 mg Bisacodyl (Dulcolax) 10 mg RECTAL .PRN X 1 PRN PRN Reason: Constipation Fluticasone Propionate (Flonase Nasal [place]) 2 spray NASAL DAILY [facility] Last Admin: 05/13/18 08:12 Dose: 2 spray Levetiracetam (Keppra Tablet) 500 mg PO BID [facility] Last Admin: 05/13/18 08:10 Dose: 500 mg Lidocaine/Diphenhydr/Alum/Mg/Simeth () 10 ml PO Q3H PRN PRN PRN Reason: PAIN Last Admin: 05/13/18 08:13 Dose: 10 ml Magnesium Hydroxide (Milk Of Magnesia) 30 ml PO .PRN X 1 PRN PRN Reason: Constipation Last Admin: 05/11/18 09:55 Dose: 30 ml Metoprolol Succinate (Toprol Xl (Beta Talha)) 12.5 mg PO DAILY [facility] Last Admin: 05/13/18 08:10 Dose: 12.5 mg Multivitamins/Minerals (Ocuvite) 1 tablet PO BID [facility] Last Admin: 05/13/18 08:10 Dose: 1 tablet Ncgcl-7-Tsbu Ethyl Esters (Lovaza) 1 gm PO DAILY [facility] Last Admin: 05/13/18 08:10 Dose: 1 gm Ondansetron HCl (Zofran Odt) 8 mg PO Q8H PRN PRN PRN Reason: NAUSEA Pravastatin Sodium (Pravachol) 40 mg PO QHS [facility] Last Admin: 05/12/18 20:39 Dose: 40 mg Senna/Docusate Sodium (Senokot-S, Shivani-Colace) 2 tablet PO BID [facility] Last Admin: 05/13/18 08:19 Dose: Not Given Medical Necessity - Tobacco Use Smoking Status: Never smoker Tobacco Use: Non-smoker Assessment/Plan 1. 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 I told her I am unaware of any contraindication to seizure and acupuncture. 2. pAfib: eliquis, metoprolol follow up with cardiology as outpt. 3. DVT proph: pt is anticoagulated Greater than 25 minutes of which greater than 50% of the time was counseling about seizures. Code Visit Inpatient E&M: 15626 Subs Hosp L2
--- NOTE | 2018-05-13 16:05 | PN_ITS ---
Subjective: Feels good. Asks if getting acupuncture (w currents) can cause seizures. Vitals/I&O's: Vital Signs Temp Pulse Resp BP Pulse Ox 36.4 C L 59 L 18 93/65 100 05/13/18 10:00 05/13/18 10:00 05/13/18 10:00 05/13/18 10:00 05/13/18 10:00 Oxygen Delivery Method Room Air Weight: 73.3 kg Body Mass Index (BMI) 27.7 Finger Stick Blood Glucose 122 Intake and Output for Last 24 Hours 05/11/18 05/12/18 05/13/18 23:59 23:59 23:59 Intake Total 800 / 800 480 / 480 240 / 240 Balance 800 / 800 480 / 480 240 / 240 General: Alert, Cooperative, No apparent distress, - - up in chair doing a word search. HEENT: Atraumatic, Normocephalic Psych/Mental Status: Normal Affect, Appropriate Current Medications Acetaminophen (Tylenol) 650 mg PO Q6H PRN PRN PRN Reason: Mild Pain (0-3/10)/Headache Last Admin: 05/13/18 08:18 Dose: 650 mg Apixaban (Eliquis) 5 mg PO BID [facility] Last Admin: 05/13/18 08:10 Dose: 5 mg Bisacodyl (Dulcolax) 10 mg RECTAL .PRN X 1 PRN PRN Reason: Constipation Fluticasone Propionate (Flonase Nasal [place]) 2 spray NASAL DAILY [facility] Last Admin: 05/13/18 08:12 Dose: 2 spray Levetiracetam (Keppra Tablet) 500 mg PO BID [facility] Last Admin: 05/13/18 08:10 Dose: 500 mg Lidocaine/Diphenhydr/Alum/Mg/Simeth () 10 ml PO Q3H PRN PRN PRN Reason: PAIN Last Admin: 05/13/18 08:13 Dose: 10 ml Magnesium Hydroxide (Milk Of Magnesia) 30 ml PO .PRN X 1 PRN PRN Reason: Constipation Last Admin: 05/11/18 09:55 Dose: 30 ml Metoprolol Succinate (Toprol Xl (Beta Talha)) 12.5 mg PO DAILY [facility] Last Admin: 05/13/18 08:10 Dose: 12.5 mg Multivitamins/Minerals (Ocuvite) 1 tablet PO BID [facility] Last Admin: 05/13/18 08:10 Dose: 1 tablet Rmynz-5-Hitv Ethyl Esters (Lovaza) 1 gm PO DAILY [facility] Last Admin: 05/13/18 08:10 Dose: 1 gm Ondansetron HCl (Zofran Odt) 8 mg PO Q8H PRN PRN PRN Reason: NAUSEA Pravastatin Sodium (Pravachol) 40 mg PO QHS [facility] Last Admin: 05/12/18 20:39 Dose: 40 mg Senna/Docusate Sodium (Senokot-S, Shivani-Colace) 2 tablet PO BID [facility] Last Admin: 05/13/18 08:19 Dose: Not Given Medical Necessity - Tobacco Use Smoking Status: Never smoker Tobacco Use: Non-smoker Assessment/Plan 1. Seizure * likely due prior CVA * on Keppra * follow up with neurology as outpt * explained to patient that the acupuncture w an electrical current 1 week prior did not cause this seizure. 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 I told her I am unaware of any contraindication to seizure and acupuncture. 2. pAfib: * eliquis, metoprolol * follow up with cardiology as outpt. 3. DVT proph: pt is anticoagulated Greater than 25 minutes of which greater than 50% of the time was counseling about seizures. Code Visit Inpatient E&M: 50426 Subs Hosp L2
[2018-05-13 17:00] VITALS: BMI 27.7
[2018-05-13 19:40] VITALS: BP 105/48; PULSE 76; RESP 16; TEMP 36.5; O2SAT 95
[2018-05-13] MEDS: Pravastatin 40 MG Tablet PO (20:01)
[2018-05-13 20:08] VITALS: BMI 27.7
[2018-05-13 20:09] VITALS: PULSE 76; RESP 16; O2SAT 95
--- NOTE | 2018-05-14 02:27 | NURSING ---
Reviewed and agree with PLATFORM SUPERVISOR documentation and FIMs charting.
[2018-05-14 07:27] VITALS: BP 122/69; PULSE 73; RESP 18; TEMP 36.7; O2SAT 93
[2018-05-14 07:52] VITALS: PULSE 73
[2018-05-14] MEDS: levETIRAcetam 500 MG Tablet PO ×2 (07:52→21:26)
[2018-05-14] MEDS: Metoprolol(XL)Succ 25 MG Tablet 12.5 MG PO (07:52)
[2018-05-14] MEDS: Senna/Docusate Sodium 1 Tablet 2 TABLET PO (07:52)
[2018-05-14] MEDS: Omega-3 Acid Ethyl Esters 1 GM Capsule PO (07:53)
[2018-05-14] MEDS: APIXABAN 5 MG TABLET PO ×2 (07:53→21:26)
[2018-05-14] MEDS: Fluticasone 0.05% 1 SPRAY NASAL.SRY 2 SPRAY NASAL (07:53)
[2018-05-14 08:38] VITALS: BMI 27.7
--- NOTE | 2018-05-14 09:18 | PCM.PN.NEU ---
Subjective: Patient seen and examined. No new issues. Tolerating therapy. No issues with GI/. Tolerating regular diet. - Physical Exam General: Alert, Oriented x3, Cooperative HEENT: Atraumatic, PERRLA, EOMI, Normocephalic Neck: Supple, No JVD, Negative Carotid Bruits Lungs: Clear to auscultation, Normal air movement Cardiovascular: Regular rate, No murmurs Abdomen: Bowel Sounds Present, Soft, Non Tender Extremities: No edema, Capillary Refill Less than 3 Seconds Skin: No rashes, No breakdown Musculoskeletal: No Tenderness to Palpation of Joints or Extremities Neurological: Cranial nerves II-XII grossly intact Psych/Mental Status: Normal Affect, Appropriate, Alert and oriented to time, place, person, mood and affect Vital Signs Temp Pulse Resp BP Pulse Ox 98.0 F 73 18 122/69 H 93 05/14/18 07:27 05/14/18 07:52 05/14/18 07:27 05/14/18 07:27 05/14/18 07:27 Oxygen Delivery Method Room Air Weight: 71.7 kg Body Mass Index (BMI) 27.7 Finger Stick Blood Glucose 122 Intake and Output for Last 24 Hours 05/12/18 05/13/18 05/14/18 23:59 23:59 23:59 Intake Total 480 / 480 240 / 240 Output Total 125 / 125 Balance 480 / 480 115 / 115 Active Medications Acetaminophen (Tylenol) 650 mg PO Q6H PRN PRN PRN Reason: Mild Pain (0-3/10)/Headache Last Admin: 05/13/18 08:18 Dose: 650 mg Apixaban (Eliquis) 5 mg PO BID [facility] Last Admin: 05/14/18 07:53 Dose: 5 mg Bisacodyl (Dulcolax) 10 mg RECTAL .PRN X 1 PRN PRN Reason: Constipation Fluticasone Propionate (Flonase Nasal [place]) 2 spray NASAL DAILY [facility] Last Admin: 05/14/18 07:53 Dose: 2 spray Levetiracetam (Keppra Tablet) 500 mg PO BID [facility] Last Admin: 05/14/18 07:52 Dose: 500 mg Lidocaine/Diphenhydr/Alum/Mg/Simeth () 10 ml PO Q3H PRN PRN PRN Reason: PAIN Last Admin: 07/10/18 20:01 Dose: 10 ml Magnesium Hydroxide (Milk Of Magnesia) 30 ml PO .PRN X 1 PRN PRN Reason: Constipation Last Admin: 05/11/18 09:55 Dose: 30 ml Metoprolol Succinate (Toprol Xl (Beta Talha)) 12.5 mg PO DAILY [facility] Last Admin: 05/14/18 07:52 Dose: 12.5 mg Multivitamins/Minerals (Ocuvite) 1 tablet PO BID [facility] Last Admin: 05/14/18 07:52 Dose: 1 tablet Vrxng-1-Epam Ethyl Esters (Lovaza) 1 gm PO DAILY [facility] Last Admin: 05/14/18 07:53 Dose: 1 gm Ondansetron HCl (Zofran Odt) 8 mg PO Q8H PRN PRN PRN Reason: NAUSEA Pravastatin Sodium (Pravachol) 40 mg PO QHS [facility] Last Admin: 05/13/18 20:01 Dose: 40 mg Senna/Docusate Sodium (Senokot-S, Shivani-Colace) 2 tablet PO BID [facility] Last Admin: 05/14/18 07:52 Dose: 2 tablet Medical Necessity - Tobacco Use Smoking Status: Never smoker Tobacco Use: Non-smoker Assessment/Plan Debility 2/2 weakness s/p seizure, 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 Goal of rehab is rastafari of functional independence. Plan: - Physical therapy for gait and balance - Occupational Therapy for ADLs - Speech therapy - As needed analgesics - Bowel protocol - Seizure disorder-no further episodes. Seizure precautions. Fall precautions. Continue Keppra 500mg BID - DVT prophylaxis: SCDs, Eliquis - Hypertension: Stable with good control, continue home dose of Metoprolol 12.5mg daily - Echo cardiogram -> EF 55-60% - Paroxysmal A-Fib -rate controlled. Continue Eliquis and metoprolol - HLD -continue home dose of statin. - Check LDL and Hba1c - Goal Hba1c <7%
--- NOTE | 2018-05-14 09:47 | CASEMGMT ---
Insurance Continued stay approved with next update due on 05/26/18. Auth#[id number] Stacey HUTTON, ICT SYSTEMS TEST ENGINEER
[2018-05-14 19:24] VITALS: BP 123/65; PULSE 71; RESP 16; TEMP 36.6; O2SAT 98
[2018-05-14 21:22] VITALS: PULSE 71; RESP 16; O2SAT 98; BMI 27.7
[2018-05-14] MEDS: Pravastatin 40 MG Tablet PO (21:26)
--- NOTE | 2018-05-15 04:41 | NURSING ---
Reviewed and agree with MASTER OF CEREMONIES documentation and FIMS charting
[2018-05-15 07:36] VITALS: BP 117/64; PULSE 70; RESP 18; TEMP 36.8; O2SAT 95
[2018-05-15 07:47] VITALS: BP 117/64; PULSE 70
[2018-05-15] MEDS: Metoprolol(XL)Succ 25 MG Tablet 12.5 MG PO (07:47)
[2018-05-15] MEDS: Omega-3 Acid Ethyl Esters 1 GM Capsule PO (07:47)
[2018-05-15] MEDS: levETIRAcetam 500 MG Tablet PO ×2 (07:48→21:09)
[2018-05-15] MEDS: APIXABAN 5 MG TABLET PO ×2 (07:48→21:09)
--- NOTE | 2018-05-15 09:20 | CASEMGMT ---
Team meeting held. Patient present as well as patient daughter. No discharge date set at this time. Patient with next insurance update due on 05/26/18 and is aware that continued stay approval is not guaranteed. Patient to continue with further care and treatment on the Inpatient Rehab Unit at this time. Patient plans to discharge home to [id number] at [facility]. Patient to be re-teamed next week. Support given. Will continue to follow. Stacey HUTTON, CANVAS CUTTER
--- NOTE | 2018-05-15 10:06 | PCM.PN.NEU ---
Subjective: Staffed in team meeting. Family at bedside, questions answered. With Physical therapy, she is able to walk greater than 150 feet with a cane, walked in the community, over different surfaces, she still has some trouble lifting and clearing that left foot, they will continue to work on this. She has done several steps with a light hand to no hand for assistance. With Occupational therapy, she is minimal assist to help with some articles of clothing, and tying her shows. She is stand by to light hand to get in and out of the shower. With Speech therapy, she is having no difficulty with swallowing. She still requires work with cognitive issues, memory, and high executive level functions. With Nursing, she is minimal to stand by for assistance going to the bathroom or doing personal care task. We will re-team her again next on 05/22. - Physical Exam General: Alert, Oriented x3, Cooperative HEENT: Atraumatic, PERRLA, EOMI, Normocephalic Neck: Supple, No JVD, Negative Carotid Bruits Lungs: Clear to auscultation, Normal air movement Cardiovascular: Regular rate, No murmurs Abdomen: Bowel Sounds Present, Soft, Non Tender Extremities: No edema, Capillary Refill Less than 3 Seconds Skin: No rashes, No breakdown Musculoskeletal: No Tenderness to Palpation of Joints or Extremities Neurological: Cranial nerves II-XII grossly intact Psych/Mental Status: Normal Affect, Appropriate, Alert and oriented to time, place, person, mood and affect Vital Signs Temp Pulse Resp BP Pulse Ox 98.3 F 70 18 117/64 95 05/15/18 07:36 05/15/18 07:47 05/15/18 07:36 05/15/18 07:47 05/15/18 07:36 Oxygen Delivery Method Room Air Weight: 71.7 kg Body Mass Index (BMI) 27.7 Finger Stick Blood Glucose 122 Intake and Output for Last 24 Hours 05/13/18 05/14/18 05/15/18 23:59 23:59 23:59 Intake Total 240 / 240 360 / 360 Output Total 125 / 125 Balance 115 / 115 360 / 360 Active Medications Acetaminophen (Tylenol) 650 mg PO Q6H PRN PRN PRN Reason: Mild Pain (0-3/10)/Headache Last Admin: 05/13/18 08:18 Dose: 650 mg Apixaban (Eliquis) 5 mg PO BID [facility] Last Admin: 05/15/18 07:48 Dose: 5 mg Bisacodyl (Dulcolax) 10 mg RECTAL .PRN X 1 PRN PRN Reason: Constipation Fluticasone Propionate (Flonase Nasal [place]) 2 spray NASAL DAILY [facility] Last Admin: 05/15/18 07:48 Dose: Not Given Levetiracetam (Keppra Tablet) 500 mg PO BID [facility] Last Admin: 05/15/18 07:48 Dose: 500 mg Lidocaine/Diphenhydr/Alum/Mg/Simeth () 10 ml PO Q3H PRN PRN PRN Reason: PAIN Last Admin: 05/13/18 20:01 Dose: 10 ml Magnesium Hydroxide (Milk Of Magnesia) 30 ml PO .PRN X 1 PRN PRN Reason: Constipation Last Admin: 05/11/18 09:55 Dose: 30 ml Metoprolol Succinate (Toprol Xl (Beta Talha)) 12.5 mg PO DAILY [facility] Last Admin: 05/15/18 07:47 Dose: 12.5 mg Multivitamins/Minerals (Ocuvite) 1 tablet PO BID [facility] Last Admin: 05/15/18 07:48 Dose: 1 tablet Xlcpt-6-Yuad Ethyl Esters (Lovaza) 1 gm PO DAILY [facility] Last Admin: 05/15/18 07:47 Dose: 1 gm Ondansetron HCl (Zofran Odt) 8 mg PO Q8H PRN PRN PRN Reason: NAUSEA Pravastatin Sodium (Pravachol) 40 mg PO QHS [facility] Last Admin: 05/14/18 21:26 Dose: 40 mg Senna/Docusate Sodium (Senokot-S, Shivani-Colace) 2 tablet PO BID [facility] Last Admin: 05/15/18 07:49 Dose: Not Given Medical Necessity - Tobacco Use Smoking Status: Never smoker Tobacco Use: Non-smoker Assessment/Plan Debility 2/2 weakness s/p seizure, 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 Goal of rehab is jehovah's witness of functional independence. Plan: - Physical therapy for gait and balance - Occupational Therapy for ADLs - Speech therapy - As needed analgesics - Bowel protocol - Seizure disorder-no further episodes. Seizure precautions. Fall precautions. Continue Keppra 500mg BID - DVT prophylaxis: SCDs, Eliquis - Hypertension: Stable with good control, continue home dose of Metoprolol 12.5mg daily - Echo cardiogram -> EF 55-60% - Paroxysmal A-Fib -rate controlled. Continue Eliquis and metoprolol - HLD -continue home dose of statin. - Check LDL and Hba1c - Goal Hba1c <7% - Re-team next week 05/22
--- NOTE | 2018-05-15 10:16 | PN.NEURO_ITS ---
Subjective: Staffed in team meeting. Family at bedside, questions answered. With Physical therapy, she is able to walk greater than 150 feet with a cane, walked in the community, over different surfaces, she still has some trouble lifting and clearing that left foot, they will continue to work on this. She has done several steps with a light hand to no hand for assistance. With Occupational therapy, she is minimal assist to help with some articles of clothing, and tying her shows. She is stand by to light hand to get in and out of the shower. With Speech therapy, she is having no difficulty with swallowing. She still requires work with cognitive issues, memory, and high executive level functions. With Nursing, she is minimal to stand by for assistance going to the bathroom or doing personal care task. We will re-team her again next on 05/22. - Physical Exam General: Alert, Oriented x3, Cooperative HEENT: Atraumatic, PERRLA, EOMI, Normocephalic Neck: Supple, No JVD, Negative Carotid Bruits Lungs: Clear to auscultation, Normal air movement Cardiovascular: Regular rate, No murmurs Abdomen: Bowel Sounds Present, Soft, Non Tender Extremities: No edema, Capillary Refill Less than 3 Seconds Skin: No rashes, No breakdown Musculoskeletal: No Tenderness to Palpation of Joints or Extremities Neurological: Cranial nerves II-XII grossly intact Psych/Mental Status: Normal Affect, Appropriate, Alert and oriented to time, place, person, mood and affect Vital Signs Temp Pulse Resp BP Pulse Ox 98.3 F 70 18 117/64 95 05/15/18 07:36 05/15/18 07:47 05/15/18 07:36 05/15/18 07:47 05/15/18 07:36 Oxygen Delivery Method Room Air Weight: 71.7 kg Body Mass Index (BMI) 27.7 Finger Stick Blood Glucose 122 Intake and Output for Last 24 Hours 05/13/18 05/14/18 05/15/18 23:59 23:59 23:59 Intake Total 240 / 240 360 / 360 Output Total 125 / 125 Balance 115 / 115 360 / 360 Active Medications Acetaminophen (Tylenol) 650 mg PO Q6H PRN PRN PRN Reason: Mild Pain (0-3/10)/Headache Last Admin: 05/13/18 08:18 Dose: 650 mg Apixaban (Eliquis) 5 mg PO BID [facility] Last Admin: 05/15/18 07:48 Dose: 5 mg Bisacodyl (Dulcolax) 10 mg RECTAL .PRN X 1 PRN PRN Reason: Constipation Fluticasone Propionate (Flonase Nasal [place]) 2 spray NASAL DAILY [facility] Last Admin: 05/15/18 07:48 Dose: Not Given Levetiracetam (Keppra Tablet) 500 mg PO BID [facility] Last Admin: 05/15/18 07:48 Dose: 500 mg Lidocaine/Diphenhydr/Alum/Mg/Simeth () 10 ml PO Q3H PRN PRN PRN Reason: PAIN Last Admin: 05/13/18 20:01 Dose: 10 ml Magnesium Hydroxide (Milk Of Magnesia) 30 ml PO .PRN X 1 PRN PRN Reason: Constipation Last Admin: 05/11/18 09:55 Dose: 30 ml Metoprolol Succinate (Toprol Xl (Beta Talha)) 12.5 mg PO DAILY [facility] Last Admin: 05/15/18 07:47 Dose: 12.5 mg Multivitamins/Minerals (Ocuvite) 1 tablet PO BID [facility] Last Admin: 05/15/18 07:48 Dose: 1 tablet Kjkkc-7-Rfym Ethyl Esters (Lovaza) 1 gm PO DAILY [facility] Last Admin: 05/15/18 07:47 Dose: 1 gm Ondansetron HCl (Zofran Odt) 8 mg PO Q8H PRN PRN PRN Reason: NAUSEA Pravastatin Sodium (Pravachol) 40 mg PO QHS [facility] Last Admin: 05/14/18 21:26 Dose: 40 mg Senna/Docusate Sodium (Senokot-S, Shivani-Colace) 2 tablet PO BID [facility] Last Admin: 05/15/18 07:49 Dose: Not Given Medical Necessity - Tobacco Use Smoking Status: Never smoker Tobacco Use: Non-smoker Assessment/Plan Debility 2/2 weakness s/p seizure, 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 Goal of rehab is shinto of functional independence. Plan: - Physical therapy for gait and balance - Occupational Therapy for ADLs - Speech therapy - As needed analgesics - Bowel protocol - Seizure disorder-no further episodes. Seizure precautions. Fall precautions. Continue Keppra 500mg BID - DVT prophylaxis: SCDs, Eliquis - Hypertension: Stable with good control, continue home dose of Metoprolol 12.5mg daily - Echo cardiogram -> EF 55-60% - Paroxysmal A-Fib -rate controlled. Continue Eliquis and metoprolol - HLD -continue home dose of statin. - Check LDL and Hba1c - Goal Hba1c <7% - Re-team next week 05/22
[2018-05-15 10:55] VITALS: BMI 27.7
[2018-05-15 21:05] VITALS: BP 125/68; PULSE 67; RESP 16; TEMP 36.3; O2SAT 91
[2018-05-15] MEDS: Pravastatin 40 MG Tablet PO (21:09)
--- NOTE | 2018-05-16 06:38 | NURSING ---
States when voiding it doesn't hurt, doesn't burn, but feels some pins and needles. States I just went and now I feel I have to go again. Will inform MD regarding possible UA
[2018-05-16 07:40] VITALS: BP 106/54; PULSE 63; RESP 16; TEMP 36.4; O2SAT 98
[2018-05-16 10:06] VITALS: PULSE 63
[2018-05-16] MEDS: Metoprolol(XL)Succ 25 MG Tablet 12.5 MG PO (10:06)
[2018-05-16] MEDS: APIXABAN 5 MG TABLET PO ×2 (10:07→20:45)
[2018-05-16] MEDS: levETIRAcetam 500 MG Tablet PO ×2 (10:07→20:46)
[2018-05-16] MEDS: Omega-3 Acid Ethyl Esters 1 GM Capsule PO (10:07)
[2018-05-16] MEDS: Ondansetron ODT 4 MG Tablet 8 MG PO (15:34)
[2018-05-16 16:26] VITALS: BMI 27.7
[2018-05-16] MEDS: Pravastatin 40 MG Tablet PO (20:46)
[2018-05-16 20:50] VITALS: BP 124/72; PULSE 72; RESP 16; TEMP 36.7; O2SAT 96
[2018-05-17 01:05] VITALS: BMI 27.7
--- NOTE | 2018-05-17 02:44 | NURSING ---
REVIEWED AND AGREE WITH PARENTING SKILLS IN[employer]CTOR'S FIM AND HANDOFF CHARTING.
[2018-05-17 07:15] VITALS: BP 100/58; PULSE 55; RESP 16; TEMP 36.4; O2SAT 98
[2018-05-17] MEDS: APIXABAN 5 MG TABLET PO ×2 (08:08→22:30)
[2018-05-17] MEDS: levETIRAcetam 500 MG Tablet PO ×2 (08:08→22:30)
[2018-05-17] MEDS: Omega-3 Acid Ethyl Esters 1 GM Capsule PO (08:08)
[2018-05-17 10:57] VITALS: BP 102/66; PULSE 69
[2018-05-17] MEDS: Metoprolol(XL)Succ 25 MG Tablet 12.5 MG PO (10:57)
[2018-05-17 13:34] VITALS: BMI 27.7
[2018-05-17 22:00] VITALS: BP 108/52; PULSE 73; RESP 18; TEMP 36.6; O2SAT 98
[2018-05-17] MEDS: Senna/Docusate Sodium 1 Tablet 2 TABLET PO (22:29)
[2018-05-17] MEDS: Pravastatin 40 MG Tablet PO (22:30)
[2018-05-18] MEDS: Omega-3 Acid Ethyl Esters 1 GM Capsule PO (07:38)
[2018-05-18] MEDS: levETIRAcetam 500 MG Tablet PO ×2 (07:38→20:24)
[2018-05-18] MEDS: APIXABAN 5 MG TABLET PO ×2 (07:39→20:24)
[2018-05-18 08:28] VITALS: BP 105/55; PULSE 62; RESP 18; TEMP 36.4; O2SAT 96
[2018-05-18 10:52] VITALS: BP 105/55; PULSE 62
[2018-05-18] MEDS: Metoprolol(XL)Succ 25 MG Tablet 12.5 MG PO (10:52)
[2018-05-18 13:53] VITALS: BMI 27.7
[2018-05-18] MEDS: Senna/Docusate Sodium 1 Tablet 2 TABLET PO ×2 (14:32→20:23)
[2018-05-18 20:17] VITALS: BP 110/72; PULSE 74; RESP 16; TEMP 36.6; O2SAT 99
[2018-05-18] MEDS: Pravastatin 40 MG Tablet PO (20:23)
[2018-05-19] MEDS: APIXABAN 5 MG TABLET PO ×2 (07:40→19:49)
[2018-05-19 07:41] VITALS: BP 116/67; PULSE 77
[2018-05-19] MEDS: levETIRAcetam 500 MG Tablet PO ×2 (07:41→19:50)
[2018-05-19] MEDS: Senna/Docusate Sodium 1 Tablet 2 TABLET PO ×2 (07:41→19:51)
[2018-05-19] MEDS: Omega-3 Acid Ethyl Esters 1 GM Capsule PO (07:41)
[2018-05-19] MEDS: Metoprolol(XL)Succ 25 MG Tablet 12.5 MG PO (07:41)
[2018-05-19 08:21] VITALS: BP 116/67; PULSE 77; RESP 16; TEMP 36.6; O2SAT 94
[2018-05-19 08:49] VITALS: BMI 27.7
--- NOTE | 2018-05-19 10:53 | PN.NEURO_ITS ---
Subjective: Patient sitting comfortably in bedside recliner napping after Physical therapy session. No acute events overnight. Today the therapy staff took the patient off the floor to walk in the community to challenge her with different surfaces , and conditions. Tolerated this very well. Denies any headaches, blurry vision or double vision. No issues with GI/. - Physical Exam General: Alert, Oriented x3, Cooperative HEENT: Atraumatic, PERRLA, EOMI, Normocephalic Neck: Supple, No JVD, Negative Carotid Bruits Lungs: Clear to auscultation, Normal air movement Cardiovascular: Regular rate, No murmurs Abdomen: Bowel Sounds Present, Soft, Non Tender Extremities: No edema, Capillary Refill Less than 3 Seconds Skin: No rashes, No breakdown Musculoskeletal: No Tenderness to Palpation of Joints or Extremities Neurological: Cranial nerves II-XII grossly intact Psych/Mental Status: Normal Affect, Appropriate, Alert and oriented to time, place, person, mood and affect Vital Signs Temp Pulse Resp BP Pulse Ox 97.9 F 77 16 116/67 94 05/19/18 08:21 05/19/18 08:21 05/19/18 08:21 05/19/18 08:21 05/19/18 08:21 Oxygen Delivery Method Room Air Weight: 71.7 kg Body Mass Index (BMI) 27.7 Finger Stick Blood Glucose 122 Intake and Output for Last 24 Hours 05/17/18 05/18/18 05/19/18 23:59 23:59 23:59 Intake Total 840 / 840 720 / 720 240 / 240 Balance 840 / 840 720 / 720 240 / 240 Active Medications Acetaminophen (Tylenol) 650 mg PO Q6H PRN PRN PRN Reason: Mild Pain (0-3/10)/Headache Last Admin: 05/13/18 08:18 Dose: 650 mg Apixaban (Eliquis) 5 mg PO BID [facility] Last Admin: 05/19/18 07:40 Dose: 5 mg Bisacodyl (Dulcolax) 10 mg RECTAL .PRN X 1 PRN PRN Reason: Constipation Fluticasone Propionate (Flonase Nasal [place]) 2 spray NASAL DAILY [facility] Last Admin: 05/19/18 07:40 Dose: Not Given Levetiracetam (Keppra Tablet) 500 mg PO BID [facility] Last Admin: 05/19/18 07:41 Dose: 500 mg Lidocaine/Diphenhydr/Alum/Mg/Simeth () 10 ml PO Q3H PRN PRN PRN Reason: PAIN Last Admin: 05/13/18 20:01 Dose: 10 ml Magnesium Hydroxide (Milk Of Magnesia) 30 ml PO .PRN X 1 PRN PRN Reason: Constipation Last Admin: 05/11/18 09:55 Dose: 30 ml Metoprolol Succinate (Toprol Xl (Beta Talha)) 12.5 mg PO DAILY [facility] Last Admin: 05/19/18 07:41 Dose: 12.5 mg Multivitamins/Minerals (Ocuvite) 1 tablet PO BID [facility] Last Admin: 05/19/18 07:41 Dose: 1 tablet Nutritional Formula (Lactose Free) (Ensure Enlive) 120 ml PO 4X/DAY [facility] Last Admin: 05/19/18 07:40 Dose: 120 ml Gloyk-7-Kaps Ethyl Esters (Lovaza) 1 gm PO DAILY [facility] Last Admin: 05/19/18 07:41 Dose: 1 gm Ondansetron HCl (Zofran Odt) 8 mg PO Q8H PRN PRN PRN Reason: NAUSEA Last Admin: 05/16/18 15:34 Dose: 8 mg Pravastatin Sodium (Pravachol) 40 mg PO QHS [facility] Last Admin: 05/18/18 20:23 Dose: 40 mg Senna/Docusate Sodium (Senokot-S, Shivani-Colace) 2 tablet PO BID [facility] Last Admin: 05/19/18 07:41 Dose: 2 tablet Medical Necessity - Tobacco Use Smoking Status: Never smoker Tobacco Use: Non-smoker Assessment/Plan Debility 2/2 weakness s/p seizure, 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 Goal of rehab is scientologist of functional independence. Plan: - Physical therapy for gait and balance - Occupational Therapy for ADLs - Speech therapy - As needed analgesics - Bowel protocol - Seizure disorder-no further episodes. Seizure precautions. Fall precautions. Continue Keppra 500mg BID - DVT prophylaxis: SCDs, Eliquis - Hypertension: Stable with good control, continue home dose of Metoprolol 12.5mg daily - Echo cardiogram -> EF 55-60% - Paroxysmal A-Fib -rate controlled. Continue Eliquis and metoprolol - HLD -continue home dose of statin. - Check LDL and Hba1c - Goal Hba1c <7%
--- NOTE | 2018-05-19 16:21 | PCM.PN.HOSP ---
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 SKIN: No Rash Vitals/I&O's: Vital Signs Temp Pulse Resp BP Pulse Ox 97.9 F 77 16 116/67 94 05/19/18 08:21 05/19/18 08:21 05/19/18 08:21 05/19/18 08:21 05/19/18 08:21 Oxygen Delivery Method Room Air Weight: 71.7 kg Body Mass Index (BMI) 27.7 Finger Stick Blood Glucose 122 Intake and Output for Last 24 Hours 05/17/18 05/18/18 05/19/18 23:59 23:59 23:59 Intake Total 840 / 840 720 / 720 240 / 240 Balance 840 / 840 720 / 720 240 / 240 Current Medications Acetaminophen (Tylenol) 650 mg PO Q6H PRN PRN PRN Reason: Mild Pain (0-3/10)/Headache Last Admin: 05/13/18 08:18 Dose: 650 mg Apixaban (Eliquis) 5 mg PO BID [facility] Last Admin: 05/19/18 07:40 Dose: 5 mg Bisacodyl (Dulcolax) 10 mg RECTAL .PRN X 1 PRN PRN Reason: Constipation Fluticasone Propionate (Flonase Nasal [place]) 2 spray NASAL DAILY [facility] Last Admin: 05/19/18 07:40 Dose: Not Given Levetiracetam (Keppra Tablet) 500 mg PO BID [facility] Last Admin: 05/19/18 07:41 Dose: 500 mg Lidocaine/Diphenhydr/Alum/Mg/Simeth () 10 ml PO Q3H PRN PRN PRN Reason: PAIN Last Admin: 05/13/18 20:01 Dose: 10 ml Magnesium Hydroxide (Milk Of Magnesia) 30 ml PO .PRN X 1 PRN PRN Reason: Constipation Last Admin: 05/11/18 09:55 Dose: 30 ml Metoprolol Succinate (Toprol Xl (Beta Talha)) 12.5 mg PO DAILY [facility] Last Admin: 05/19/18 07:41 Dose: 12.5 mg Multivitamins/Minerals (Ocuvite) 1 tablet PO BID [facility] Last Admin: 05/19/18 07:41 Dose: 1 tablet Nutritional Formula (Lactose Free) (Ensure Enlive) 120 ml PO 4X/DAY [facility] Last Admin: 05/19/18 13:44 Dose: 120 ml Luwfz-9-Yczo Ethyl Esters (Lovaza) 1 gm PO DAILY [facility] Last Admin: 05/19/18 07:41 Dose: 1 gm Ondansetron HCl (Zofran Odt) 8 mg PO Q8H PRN PRN PRN Reason: NAUSEA Last Admin: 05/16/18 15:34 Dose: 8 mg Pravastatin Sodium (Pravachol) 40 mg PO QHS [facility] Last Admin: 05/18/18 20:23 Dose: 40 mg Senna/Docusate Sodium (Senokot-S, Shivani-Colace) 2 tablet PO BID [facility] Last Admin: 05/19/18 07:41 Dose: 2 tablet Medical Necessity - Tobacco Use Smoking Status: Never smoker Tobacco Use: Non-smoker Assessment/Plan Patient is a 77 year old lady admitted to the inpatient rehab unit with weakness and debility following a seizure from a prior CVA 1. Physical debility: Patient is currently on the inpatient rehab unit PT OT as tolerated 2. 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 Paroxysmal A. fib on Eliquis as well as beta-blockers for rate control 4. Seizure disorder patient is on Keppra 5. DVT prophylaxis on Eliquis Code Visit Inpatient E&M: 66038 Subs Hosp L2
[2018-05-19 19:20] VITALS: BP 110/68; PULSE 67; RESP 18; TEMP 36.5; O2SAT 97
[2018-05-19 19:47] VITALS: BMI 27.7
[2018-05-19] MEDS: Pravastatin 40 MG Tablet PO (19:50)
[2018-05-19 22:00] VITALS: O2SAT 97
[2018-05-20 07:33] VITALS: BP 117/70; PULSE 76; RESP 16; TEMP 36.4; O2SAT 100
[2018-05-20 07:53] VITALS: PULSE 76
[2018-05-20] MEDS: APIXABAN 5 MG TABLET PO ×2 (07:53→20:28)
[2018-05-20] MEDS: Omega-3 Acid Ethyl Esters 1 GM Capsule PO (07:53)
[2018-05-20] MEDS: levETIRAcetam 500 MG Tablet PO ×2 (07:53→20:28)
[2018-05-20] MEDS: Metoprolol(XL)Succ 25 MG Tablet 12.5 MG PO (07:53)
[2018-05-20] MEDS: Senna/Docusate Sodium 1 Tablet 2 TABLET PO (07:53)
[2018-05-20] MEDS: Fluticasone 0.05% 1 SPRAY NASAL.SRY 2 SPRAY NASAL (07:54)
[2018-05-20 09:48] VITALS: BMI 27.7
--- NOTE | 2018-05-20 10:50 | PCM.PN.NEU ---
Subjective: Patient seen, no new complaints. Tolerating therapy. Denies any shortness of breath, blurry vision or double vision. Tolerating regular diet. No issues with GI/. - Physical Exam General: Alert, Oriented x3, Cooperative HEENT: Atraumatic, PERRLA, EOMI, Normocephalic Neck: Supple, No JVD, Negative Carotid Bruits Lungs: Clear to auscultation, Normal air movement Cardiovascular: Regular rate, No murmurs Abdomen: Bowel Sounds Present, Soft, Non Tender Extremities: No edema, Capillary Refill Less than 3 Seconds Skin: No rashes, No breakdown Musculoskeletal: No Tenderness to Palpation of Joints or Extremities Neurological: Cranial nerves II-XII grossly intact Psych/Mental Status: Normal Affect, Appropriate, Alert and oriented to time, place, person, mood and affect Vital Signs Temp Pulse Resp BP Pulse Ox 97.6 F L 76 16 117/70 100 05/20/18 07:33 05/20/18 07:53 05/20/18 07:33 05/20/18 07:33 05/20/18 07:33 Oxygen Delivery Method Room Air Weight: 71.7 kg Body Mass Index (BMI) 27.7 Finger Stick Blood Glucose 122 Intake and Output for Last 24 Hours 05/18/18 05/19/18 05/20/18 23:59 23:59 23:59 Intake Total 720 / 720 240 / 240 240 / 240 Balance 720 / 720 240 / 240 240 / 240 Active Medications Acetaminophen (Tylenol) 650 mg PO Q6H PRN PRN PRN Reason: Mild Pain (0-3/10)/Headache Last Admin: 05/13/18 08:18 Dose: 650 mg Apixaban (Eliquis) 5 mg PO BID [facility] Last Admin: 05/20/18 07:53 Dose: 5 mg Bisacodyl (Dulcolax) 10 mg RECTAL .PRN X 1 PRN PRN Reason: Constipation Fluticasone Propionate (Flonase Nasal [place]) 2 spray NASAL DAILY [facility] Last Admin: 05/20/18 07:54 Dose: 2 spray Levetiracetam (Keppra Tablet) 500 mg PO BID [facility] Last Admin: 05/20/18 07:53 Dose: 500 mg Lidocaine/Diphenhydr/Alum/Mg/Simeth () 10 ml PO Q3H PRN PRN PRN Reason: PAIN Last Admin: 05/13/18 20:01 Dose: 10 ml Magnesium Hydroxide (Milk Of Magnesia) 30 ml PO .PRN X 1 PRN PRN Reason: Constipation Last Admin: 05/11/18 09:55 Dose: 30 ml Metoprolol Succinate (Toprol Xl (Beta Talha)) 12.5 mg PO DAILY [facility] Last Admin: 05/20/18 07:53 Dose: 12.5 mg Multivitamins/Minerals (Ocuvite) 1 tablet PO BID [facility] Last Admin: 05/20/18 07:54 Dose: 1 tablet Nutritional Formula (Lactose Free) (Ensure Enlive) 120 ml PO 4X/DAY [facility] Last Admin: 05/20/18 07:55 Dose: 120 ml Systu-8-Wyab Ethyl Esters (Lovaza) 1 gm PO DAILY [facility] Last Admin: 05/20/18 07:53 Dose: 1 gm Ondansetron HCl (Zofran Odt) 8 mg PO Q8H PRN PRN PRN Reason: NAUSEA Last Admin: 05/16/18 15:34 Dose: 8 mg Pravastatin Sodium (Pravachol) 40 mg PO QHS [facility] Last Admin: 05/19/18 19:50 Dose: 40 mg Senna/Docusate Sodium (Senokot-S, Shivani-Colace) 2 tablet PO BID [facility] Last Admin: 05/20/18 07:53 Dose: 2 tablet Medical Necessity - Tobacco Use Smoking Status: Never smoker Tobacco Use: Non-smoker Assessment/Plan Debility 2/2 weakness s/p seizure, 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 Goal of rehab is anabaptism of functional independence. Plan: - Physical therapy for gait and balance - Occupational Therapy for ADLs - Speech therapy - As needed analgesics - Bowel protocol - Seizure disorder-no further episodes. Seizure precautions. Fall precautions. Continue Keppra 500mg BID - DVT prophylaxis: SCDs, Eliquis - Hypertension: Stable with good control, continue home dose of Metoprolol 12.5mg daily - Echo cardiogram -> EF 55-60% - Paroxysmal A-Fib -rate controlled. Continue Eliquis and metoprolol - HLD -continue home dose of statin. - Check LDL and Hba1c - Goal Hba1c <7%
[2018-05-20 20:15] VITALS: BP 123/90; PULSE 73; RESP 17; TEMP 36.4; O2SAT 97
[2018-05-20] MEDS: Pravastatin 40 MG Tablet PO (20:28)
[2018-05-20 20:33] VITALS: BMI 27.7
[2018-05-20 22:00] VITALS: PULSE 73; RESP 17
[2018-05-21 07:36] VITALS: BP 106/57; PULSE 68; RESP 17; TEMP 36.6; O2SAT 100
[2018-05-21] MEDS: APIXABAN 5 MG TABLET PO ×2 (08:35→19:42)
[2018-05-21] MEDS: Omega-3 Acid Ethyl Esters 1 GM Capsule PO (08:35)
[2018-05-21] MEDS: levETIRAcetam 500 MG Tablet PO ×2 (08:35→19:42)
[2018-05-21 08:36] VITALS: PULSE 68
[2018-05-21] MEDS: Metoprolol(XL)Succ 25 MG Tablet 12.5 MG PO (08:36)
--- NOTE | 2018-05-21 09:31 | PCM.PN.NEU ---
Subjective: Patient seen and examined. Complaining of urgency, frequency, and burning on urination, will obtain a urinalysis for possible UTI. Tolerating therapy, has walked in the community several times and is doing well. Denies any blurry vision, or flashes of light. Tolerating regular diet. No issues with GI. - Physical Exam General: Alert, Oriented x3, Cooperative HEENT: Atraumatic, PERRLA, EOMI, Normocephalic Neck: Supple, No JVD, Negative Carotid Bruits Lungs: Clear to auscultation, Normal air movement Cardiovascular: Regular rate, No murmurs Abdomen: Bowel Sounds Present, Soft, Non Tender Extremities: No edema, Capillary Refill Less than 3 Seconds Skin: No rashes, No breakdown Musculoskeletal: No Tenderness to Palpation of Joints or Extremities Neurological: Cranial nerves II-XII grossly intact Psych/Mental Status: Normal Affect, Appropriate, Alert and oriented to time, place, person, mood and affect Vital Signs Temp Pulse Resp BP Pulse Ox 97.8 F 68 17 106/57 L 100 05/21/18 07:36 05/21/18 08:36 05/21/18 07:36 05/21/18 07:36 05/21/18 07:36 Oxygen Delivery Method Room Air Weight: 70.8 kg Body Mass Index (BMI) 27.7 Finger Stick Blood Glucose 122 Intake and Output for Last 24 Hours 05/19/18 05/20/18 05/21/18 23:59 23:59 23:59 Intake Total 240 / 240 240 / 240 320 / 320 Balance 240 / 240 240 / 240 320 / 320 Active Medications Acetaminophen (Tylenol) 650 mg PO Q6H PRN PRN PRN Reason: Mild Pain (0-3/10)/Headache Last Admin: 05/13/18 08:18 Dose: 650 mg Apixaban (Eliquis) 5 mg PO BID [facility] Last Admin: 05/21/18 08:35 Dose: 5 mg Bisacodyl (Dulcolax) 10 mg RECTAL .PRN X 1 PRN PRN Reason: Constipation Fluticasone Propionate (Flonase Nasal [place]) 2 spray NASAL DAILY [facility] Last Admin: 05/21/18 08:37 Dose: Not Given Levetiracetam (Keppra Tablet) 500 mg PO BID [facility] Last Admin: 05/21/18 08:35 Dose: 500 mg Lidocaine/Diphenhydr/Alum/Mg/Simeth () 10 ml PO Q3H PRN PRN PRN Reason: PAIN Last Admin: 05/13/18 20:01 Dose: 10 ml Magnesium Hydroxide (Milk Of Magnesia) 30 ml PO .PRN X 1 PRN PRN Reason: Constipation Last Admin: 05/11/18 09:55 Dose: 30 ml Metoprolol Succinate (Toprol Xl (Beta Talha)) 12.5 mg PO DAILY [facility] Last Admin: 05/21/18 08:36 Dose: 12.5 mg Multivitamins/Minerals (Ocuvite) 1 tablet PO BID [facility] Last Admin: 05/21/18 08:36 Dose: 1 tablet Nutritional Formula (Lactose Free) (Ensure Enlive) 120 ml PO 4X/DAY [facility] Last Admin: 05/21/18 08:37 Dose: 120 ml Dsqfy-6-Cynw Ethyl Esters (Lovaza) 1 gm PO DAILY [facility] Last Admin: 05/21/18 08:35 Dose: 1 gm Ondansetron HCl (Zofran Odt) 8 mg PO Q8H PRN PRN PRN Reason: NAUSEA Last Admin: 05/16/18 15:34 Dose: 8 mg Pravastatin Sodium (Pravachol) 40 mg PO QHS [facility] Last Admin: 05/20/18 20:28 Dose: 40 mg Senna/Docusate Sodium (Senokot-S, Shivani-Colace) 2 tablet PO BID [facility] Last Admin: 05/21/18 08:32 Dose: Not Given Medical Necessity - Tobacco Use Smoking Status: Never smoker Tobacco Use: Non-smoker Assessment/Plan Debility 2/2 weakness s/p seizure, 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 Goal of rehab is catholic of functional independence. Plan: - Physical therapy for gait and balance - Occupational Therapy for ADLs - Speech therapy - As needed analgesics - Bowel protocol - Seizure disorder-no further episodes. Seizure precautions. Fall precautions. Continue Keppra 500mg BID - DVT prophylaxis: SCDs, Eliquis - Hypertension: Stable with good control, continue home dose of Metoprolol 12.5mg daily - Echo cardiogram -> EF 55-60% - Paroxysmal A-Fib -rate controlled. Continue Eliquis and metoprolol - HLD -continue home dose of statin. - Check LDL and Hba1c - Goal Hba1c <7% - Possible UTI - having frequency, urgency and burning on urination => Urinalysis
--- NOTE | 2018-05-21 09:37 | PN.NEURO_ITS ---
Subjective: Patient seen and examined. Complaining of urgency, frequency, and burning on urination, will obtain a urinalysis for possible UTI. Tolerating therapy, has walked in the community several times and is doing well. Denies any blurry vision, or flashes of light. Tolerating regular diet. No issues with GI. - Physical Exam General: Alert, Oriented x3, Cooperative HEENT: Atraumatic, PERRLA, EOMI, Normocephalic Neck: Supple, No JVD, Negative Carotid Bruits Lungs: Clear to auscultation, Normal air movement Cardiovascular: Regular rate, No murmurs Abdomen: Bowel Sounds Present, Soft, Non Tender Extremities: No edema, Capillary Refill Less than 3 Seconds Skin: No rashes, No breakdown Musculoskeletal: No Tenderness to Palpation of Joints or Extremities Neurological: Cranial nerves II-XII grossly intact Psych/Mental Status: Normal Affect, Appropriate, Alert and oriented to time, place, person, mood and affect Vital Signs Temp Pulse Resp BP Pulse Ox 97.8 F 68 17 106/57 L 100 05/21/18 07:36 05/21/18 08:36 05/21/18 07:36 05/21/18 07:36 05/21/18 07:36 Oxygen Delivery Method Room Air Weight: 70.8 kg Body Mass Index (BMI) 27.7 Finger Stick Blood Glucose 122 Intake and Output for Last 24 Hours 05/19/18 05/20/18 05/21/18 23:59 23:59 23:59 Intake Total 240 / 240 240 / 240 320 / 320 Balance 240 / 240 240 / 240 320 / 320 Active Medications Acetaminophen (Tylenol) 650 mg PO Q6H PRN PRN PRN Reason: Mild Pain (0-3/10)/Headache Last Admin: 05/13/18 08:18 Dose: 650 mg Apixaban (Eliquis) 5 mg PO BID [facility] Last Admin: 05/21/18 08:35 Dose: 5 mg Bisacodyl (Dulcolax) 10 mg RECTAL .PRN X 1 PRN PRN Reason: Constipation Fluticasone Propionate (Flonase Nasal [place]) 2 spray NASAL DAILY [facility] Last Admin: 05/21/18 08:37 Dose: Not Given Levetiracetam (Keppra Tablet) 500 mg PO BID [facility] Last Admin: 05/21/18 08:35 Dose: 500 mg Lidocaine/Diphenhydr/Alum/Mg/Simeth () 10 ml PO Q3H PRN PRN PRN Reason: PAIN Last Admin: 05/13/18 20:01 Dose: 10 ml Magnesium Hydroxide (Milk Of Magnesia) 30 ml PO .PRN X 1 PRN PRN Reason: Constipation Last Admin: 05/11/18 09:55 Dose: 30 ml Metoprolol Succinate (Toprol Xl (Beta Talha)) 12.5 mg PO DAILY [facility] Last Admin: 05/21/18 08:36 Dose: 12.5 mg Multivitamins/Minerals (Ocuvite) 1 tablet PO BID [facility] Last Admin: 05/21/18 08:36 Dose: 1 tablet Nutritional Formula (Lactose Free) (Ensure Enlive) 120 ml PO 4X/DAY [facility] Last Admin: 05/21/18 08:37 Dose: 120 ml Oarhj-5-Jsin Ethyl Esters (Lovaza) 1 gm PO DAILY [facility] Last Admin: 05/21/18 08:35 Dose: 1 gm Ondansetron HCl (Zofran Odt) 8 mg PO Q8H PRN PRN PRN Reason: NAUSEA Last Admin: 05/16/18 15:34 Dose: 8 mg Pravastatin Sodium (Pravachol) 40 mg PO QHS [facility] Last Admin: 05/20/18 20:28 Dose: 40 mg Senna/Docusate Sodium (Senokot-S, Shivani-Colace) 2 tablet PO BID [facility] Last Admin: 05/21/18 08:32 Dose: Not Given Medical Necessity - Tobacco Use Smoking Status: Never smoker Tobacco Use: Non-smoker Assessment/Plan Debility 2/2 weakness s/p seizure, 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 Goal of rehab is bahai of functional independence. Plan: - Physical therapy for gait and balance - Occupational Therapy for ADLs - Speech therapy - As needed analgesics - Bowel protocol - Seizure disorder-no further episodes. Seizure precautions. Fall precautions. Continue Keppra 500mg BID - DVT prophylaxis: SCDs, Eliquis - Hypertension: Stable with good control, continue home dose of Metoprolol 12.5mg daily - Echo cardiogram -> EF 55-60% - Paroxysmal A-Fib -rate controlled. Continue Eliquis and metoprolol - HLD -continue home dose of statin. - Check LDL and Hba1c - Goal Hba1c <7% - Possible UTI - having frequency, urgency and burning on urination => Urinalysis
[2018-05-21 13:23] VITALS: BMI 27.7
--- NOTE | 2018-05-21 13:39 | PCM.PN.HOSP ---
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; right-sided hemiparesis SKIN: No Rash Vitals/I&O's: Vital Signs Temp Pulse Resp BP Pulse Ox 97.8 F 68 17 106/57 L 100 05/21/18 07:36 05/21/18 08:36 05/21/18 07:36 05/21/18 07:36 05/21/18 07:36 Oxygen Delivery Method Room Air Weight: 70.8 kg Body Mass Index (BMI) 27.7 Finger Stick Blood Glucose 122 Intake and Output for Last 24 Hours 05/19/18 05/20/18 05/21/18 23:59 23:59 23:59 Intake Total 240 / 240 240 / 240 320 / 320 Balance 240 / 240 240 / 240 320 / 320 Current Medications Acetaminophen (Tylenol) 650 mg PO Q6H PRN PRN PRN Reason: Mild Pain (0-3/10)/Headache Last Admin: 05/13/18 08:18 Dose: 650 mg Apixaban (Eliquis) 5 mg PO BID [facility] Last Admin: 05/21/18 08:35 Dose: 5 mg Bisacodyl (Dulcolax) 10 mg RECTAL .PRN X 1 PRN PRN Reason: Constipation Fluticasone Propionate (Flonase Nasal [place]) 2 spray NASAL DAILY [facility] Last Admin: 05/21/18 08:37 Dose: Not Given Levetiracetam (Keppra Tablet) 500 mg PO BID [facility] Last Admin: 05/21/18 08:35 Dose: 500 mg Lidocaine/Diphenhydr/Alum/Mg/Simeth () 10 ml PO Q3H PRN PRN PRN Reason: PAIN Last Admin: 05/13/18 20:01 Dose: 10 ml Magnesium Hydroxide (Milk Of Magnesia) 30 ml PO .PRN X 1 PRN PRN Reason: Constipation Last Admin: 05/11/18 09:55 Dose: 30 ml Metoprolol Succinate (Toprol Xl (Beta Talha)) 12.5 mg PO DAILY [facility] Last Admin: 05/21/18 08:36 Dose: 12.5 mg Multivitamins/Minerals (Ocuvite) 1 tablet PO BID [facility] Last Admin: 05/21/18 08:36 Dose: 1 tablet Nutritional Formula (Lactose Free) (Ensure Enlive) 120 ml PO 4X/DAY [facility] Last Admin: 05/21/18 13:36 Dose: 120 ml Xvzym-8-Psji Ethyl Esters (Lovaza) 1 gm PO DAILY [facility] Last Admin: 05/21/18 08:35 Dose: 1 gm Ondansetron HCl (Zofran Odt) 8 mg PO Q8H PRN PRN PRN Reason: NAUSEA Last Admin: 05/16/18 15:34 Dose: 8 mg Pravastatin Sodium (Pravachol) 40 mg PO QHS [facility] Last Admin: 05/20/18 20:28 Dose: 40 mg Senna/Docusate Sodium (Senokot-S, Shivani-Colace) 2 tablet PO BID [facility] Last Admin: 05/21/18 08:32 Dose: Not Given Medical Necessity - Tobacco Use Smoking Status: Never smoker Tobacco Use: Non-smoker Assessment/Plan Patient is a 77 year old lady admitted to the inpatient rehab unit with weakness and debility following a seizure from a prior CVA 1. Physical debility: Patient is currently on the inpatient rehab unit PT OT as tolerated 2. 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 Paroxysmal A. fib on Eliquis as well as beta-blockers for rate control 4. Seizure disorder patient is on Keppra 5. DVT prophylaxis on Eliquis 6. Urinary frequency: plan is to rule out cystitis with UA with reflex culture Code Visit Inpatient E&M: 30293 Subs Hosp L2
[2018-05-21 19:18] LABS: Mucous, Urine 0 SEEN /hpf (<or=2+); Red Blood Cells-Urine 0 SEEN /hpf (0-5); Squamous Epithelial Cells - UA 0 SEEN /hpf (5-10)
[2018-05-21 19:29] VITALS: BP 159/107; PULSE 79; RESP 16; TEMP 36.6; O2SAT 92
[2018-05-21 19:39] LABS: Color, Urine Yellow (Yellow); Glucose, Dipstick Normal (Normal); Ketone-Dipstick Negative (Negative); Leukocyte Esterase-Dipstick 500 /ul (Negative); Nitrite-Dipstick Positive (Negative); Occult Blood-Urine 25 /ul (Negative); Protein-Dipstick 30 mg/dl (Negative); Urine Bilirubin Dipstick Negative (Negative); Urine Clarity Cloudy (Clear); Urine Urobilinogen Normal (Normal)
[2018-05-21 19:41] VITALS: BP 103/65
[2018-05-21] MEDS: Pravastatin 40 MG Tablet PO (19:42)
[2018-05-21] MEDS: Senna/Docusate Sodium 1 Tablet 2 TABLET PO (19:44)
[2018-05-21 19:51] LABS: White Blood Cells 50-100 SEEN /hpf (0-5)
[2018-05-21 19:52] LABS: Bacteria 3+ /hpf (None Seen)
[2018-05-22] MEDS: Ciprofloxacin 500 MG Tablet PO (06:50)
[2018-05-22 07:42] VITALS: BP 106/61; PULSE 73; RESP 17; TEMP 36.6; O2SAT 97
[2018-05-22] MEDS: APIXABAN 5 MG TABLET PO ×2 (07:46→21:37)
[2018-05-22] MEDS: levETIRAcetam 500 MG Tablet PO ×2 (07:47→21:37)
[2018-05-22] MEDS: Omega-3 Acid Ethyl Esters 1 GM Capsule PO (07:47)
[2018-05-22 09:55] VITALS: BP 106/61; PULSE 73
[2018-05-22] MEDS: Metoprolol(XL)Succ 25 MG Tablet 12.5 MG PO (09:55)
--- NOTE | 2018-05-22 10:35 | PCM.PN.NEU ---
Subjective: Staffed in team meeting. Family at bedside, questions answered. With Physical therapy, she is able to walk greater than 150 feet with a cane, walked in the community, over different surfaces, she still has some trouble lifting and clearing that left foot, the team recommend that she wears shoes when walking and to use a walker instead of a cane, for better support and safety. She has done several steps with a light hand to no hand for assistance. With Occupational therapy, she is able to do all her own personal care with out difficulty. She is stand by to light hand to get in and out of the shower. She continues to have some weakness in that left hand, will drop things occasionally if she is holding items in that hand. With Speech therapy, she is having no difficulty with swallowing. She still requires work with cognitive issues, memory, and high executive level functions. They recommend that she has assistance when doing her check book or finances. With Nursing, no new issues. From a Medical stand point she will need to be on KeSweetenra for life, no driving for the next 6 months. The plan is to discharge on Saturday home with family. She will have outpatient Physical therapy, Occupational therapy, and Speech therapy. Will make her MOD I starting today until discharge. - Physical Exam General: Alert, Oriented x3, Cooperative HEENT: Atraumatic, PERRLA, EOMI, Normocephalic Neck: Supple, No JVD, Negative Carotid Bruits Lungs: Clear to auscultation, Normal air movement Cardiovascular: Regular rate, No murmurs Abdomen: Bowel Sounds Present, Soft, Non Tender Extremities: No edema, Capillary Refill Less than 3 Seconds Skin: No rashes, No breakdown Musculoskeletal: No Tenderness to Palpation of Joints or Extremities Neurological: Cranial nerves II-XII grossly intact Psych/Mental Status: Normal Affect, Appropriate, Alert and oriented to time, place, person, mood and affect Vital Signs Temp Pulse Resp BP Pulse Ox 97.8 F 73 17 106/61 97 05/22/18 07:42 05/22/18 09:55 05/22/18 07:42 05/22/18 09:55 05/22/18 07:42 Oxygen Delivery Method Room Air Weight: 70.8 kg Body Mass Index (BMI) 27.7 Finger Stick Blood Glucose 122 Intake and Output for Last 24 Hours 05/20/18 05/21/1805/22/18 23:59 23:59 23:59 Intake Total 240 / 240 320 / 320 Balance 240 / 240 320 / 320 Laboratory Tests Past 24 Hrs 05/21/18 19:16 Urine Color Yellow Urine Clarity Cloudy Urine pH 6.0 Ur Specific [place] 1.020 Urine Protein 30 H Urine Glucose (UA) Normal Urine Ketones Negative Urine Occult Blood 25 H Urine Nitrite Positive H Urine Bilirubin Negative Urine Urobilinogen Normal Ur Leukocyte Esterase 500 H Urine RBC 0 SEEN Urine WBC 50-100 SEEN Ur Squamous Epith Cells 0 SEEN Urine Bacteria 3+ Urine Mucus 0 SEEN Active Medications Acetaminophen (Tylenol) 650 mg PO Q6H PRN PRN PRN Reason: Mild Pain (0-3/10)/Headache Last Admin: 05/13/18 08:18 Dose: 650 mg Apixaban (Eliquis) 5 mg PO BID [facility] Last Admin: 05/22/18 07:46 Dose: 5 mg Bisacodyl (Dulcolax) 10 mg RECTAL .PRN X 1 PRN PRN Reason: Constipation Ciprofloxacin HCl (Cipro) 500 mg PO DAILY [facility] Stop: 05/24/18 10:01 Last Admin: 05/22/18 06:50 Dose: 500 mg Fluticasone Propionate (Flonase Nasal [place]) 2 spray NASAL DAILY [facility] Last Admin: 05/22/18 07:44 Dose: Not Given Levetiracetam (Keppra Tablet) 500 mg PO BID [facility] Last Admin: 05/22/18 07:47 Dose: 500 mg Lidocaine/Diphenhydr/Alum/Mg/Simeth () 10 ml PO Q3H PRN PRN PRN Reason: PAIN Last Admin: 05/13/18 20:01 Dose: 10 ml Magnesium Hydroxide (Milk Of Magnesia) 30 ml PO .PRN X 1 PRN PRN Reason: Constipation Last Admin: 05/11/18 09:55 Dose: 30 ml Metoprolol Succinate (Toprol Xl (Beta Talha)) 12.5 mg PO DAILY [facility] Last Admin: 05/22/18 09:55 Dose: 12.5 mg Multivitamins/Minerals (Ocuvite) 1 tablet PO BID [facility] Last Admin: 05/22/18 07:47 Dose: 1 tablet Nutritional Formula (Lactose Free) (Ensure Enlive) 120 ml PO 4X/DAY [facility] Last Admin: 05/22/18 09:55 Dose: 120 ml Leuib-7-Orzu Ethyl Esters (Lovaza) 1 gm PO DAILY [facility] Last Admin: 05/22/18 07:47 Dose: 1 gm Ondansetron HCl (Zofran Odt) 8 mg PO Q8H PRN PRN PRN Reason: NAUSEA Last Admin: 05/16/18 15:34 Dose: 8 mg Pravastatin Sodium (Pravachol) 40 mg PO QHS [facility] Last Admin: 05/21/18 19:42 Dose: 40 mg Senna/Docusate Sodium (Senokot-S, Shivani-Colace) 2 tablet PO BID [facility] Last Admin: 05/22/18 07:47 Dose: Not Given Medical Necessity - Tobacco Use Smoking Status: Never smoker Tobacco Use: Non-smoker Assessment/Plan Debility 2/2 weakness s/p seizure, 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 Goal of rehab is advent of functional independence. Plan: - Physical therapy for gait and balance - Occupational Therapy for ADLs - Speech therapy - As needed analgesics - Bowel protocol - Seizure disorder-no further episodes. Seizure precautions. Fall precautions. Continue Keppra 500mg BID - DVT prophylaxis: SCDs, Eliquis - Hypertension: Stable with good control, continue home dose of Metoprolol 12.5mg daily - Echo cardiogram -> EF 55-60% - Paroxysmal A-Fib -rate controlled. Continue Eliquis and metoprolol - HLD -continue home dose of statin. - Check LDL and Hba1c - Goal Hba1c <7% - Possible UTI - having frequency, urgency and burning on urination => Urinalysis was positive, started on Cipro 500mg daily x 3days - Plan is discharge on Saturday home with family, will arrange for Outpatient Physical therapy, Occupational therapy, and Speech therapy.
--- NOTE | 2018-05-22 10:38 | PN.NEURO_ITS ---
Subjective: Staffed in team meeting. Family at bedside, questions answered. With Physical therapy, she is able to walk greater than 150 feet with a cane, walked in the community, over different surfaces, she still has some trouble lifting and clearing that left foot, the team recommend that she wears shoes when walking and to use a walker instead of a cane, for better support and safety. She has done several steps with a light hand to no hand for assistance. With Occupational therapy, she is able to do all her own personal care with out difficulty. She is stand by to light hand to get in and out of the shower. She continues to have some weakness in that left hand, will drop things occasionally if she is holding items in that hand. With Speech therapy, she is having no difficulty with swallowing. She still requires work with cognitive issues, memory, and high executive level functions. They recommend that she has assistance when doing her check book or finances. With Nursing, no new issues. From a Medical stand point she will need to be on KeSmartdatera for life, no driving for the next 6 months. The plan is to discharge on Saturday home with family. She will have outpatient Physical therapy, Occupational therapy, and Speech therapy. Will make her MOD I starting today until discharge. - Physical Exam General: Alert, Oriented x3, Cooperative HEENT: Atraumatic, PERRLA, EOMI, Normocephalic Neck: Supple, No JVD, Negative Carotid Bruits Lungs: Clear to auscultation, Normal air movement Cardiovascular: Regular rate, No murmurs Abdomen: Bowel Sounds Present, Soft, Non Tender Extremities: No edema, Capillary Refill Less than 3 Seconds Skin: No rashes, No breakdown Musculoskeletal: No Tenderness to Palpation of Joints or Extremities Neurological: Cranial nerves II-XII grossly intact Psych/Mental Status: Normal Affect, Appropriate, Alert and oriented to time, place, person, mood and affect Vital Signs Temp Pulse Resp BP Pulse Ox 97.8 F 73 17 106/61 97 05/22/18 07:42 05/22/18 09:55 05/22/18 07:42 05/22/18 09:55 05/22/18 07:42 Oxygen Delivery Method Room Air Weight: 70.8 kg Body Mass Index (BMI) 27.7 Finger Stick Blood Glucose 122 Intake and Output for Last 24 Hours 05/20/18 05/21/1805/22/18 23:59 23:59 23:59 Intake Total 240 / 240 320 / 320 Balance 240 / 240 320 / 320 Laboratory Tests Past 24 Hrs 05/21/18 19:16 Urine Color Yellow Urine Clarity Cloudy Urine pH 6.0 Ur Specific [place] 1.020 Urine Protein 30 H Urine Glucose (UA) Normal Urine Ketones Negative Urine Occult Blood 25 H Urine Nitrite Positive H Urine Bilirubin Negative Urine Urobilinogen Normal Ur Leukocyte Esterase 500 H Urine RBC 0 SEEN Urine WBC 50-100 SEEN Ur Squamous Epith Cells 0 SEEN Urine Bacteria 3+ Urine Mucus 0 SEEN Active Medications Acetaminophen (Tylenol) 650 mg PO Q6H PRN PRN PRN Reason: Mild Pain (0-3/10)/Headache Last Admin: 05/13/18 08:18 Dose: 650 mg Apixaban (Eliquis) 5 mg PO BID [facility] Last Admin: 05/22/18 07:46 Dose: 5 mg Bisacodyl (Dulcolax) 10 mg RECTAL .PRN X 1 PRN PRN Reason: Constipation Ciprofloxacin HCl (Cipro) 500 mg PO DAILY [facility] Stop: 05/24/18 10:01 Last Admin: 05/22/18 06:50 Dose: 500 mg Fluticasone Propionate (Flonase Nasal [place]) 2 spray NASAL DAILY [facility] Last Admin: 05/22/18 07:44 Dose: Not Given Levetiracetam (Keppra Tablet) 500 mg PO BID [facility] Last Admin: 05/22/18 07:47 Dose: 500 mg Lidocaine/Diphenhydr/Alum/Mg/Simeth () 10 ml PO Q3H PRN PRN PRN Reason: PAIN Last Admin: 05/13/18 20:01 Dose: 10 ml Magnesium Hydroxide (Milk Of Magnesia) 30 ml PO .PRN X 1 PRN PRN Reason: Constipation Last Admin: 05/11/18 09:55 Dose: 30 ml Metoprolol Succinate (Toprol Xl (Beta Talha)) 12.5 mg PO DAILY [facility] Last Admin: 05/22/18 09:55 Dose: 12.5 mg Multivitamins/Minerals (Ocuvite) 1 tablet PO BID [facility] Last Admin: 05/22/18 07:47 Dose: 1 tablet Nutritional Formula (Lactose Free) (Ensure Enlive) 120 ml PO 4X/DAY [facility] Last Admin: 05/22/18 09:55 Dose: 120 ml Oyobc-7-Oiqc Ethyl Esters (Lovaza) 1 gm PO DAILY [facility] Last Admin: 05/22/18 07:47 Dose: 1 gm Ondansetron HCl (Zofran Odt) 8 mg PO Q8H PRN PRN PRN Reason: NAUSEA Last Admin: 05/16/18 15:34 Dose: 8 mg Pravastatin Sodium (Pravachol) 40 mg PO QHS [facility] Last Admin: 05/21/18 19:42 Dose: 40 mg Senna/Docusate Sodium (Senokot-S, Shivani-Colace) 2 tablet PO BID [facility] Last Admin: 05/22/18 07:47 Dose: Not Given Medical Necessity - Tobacco Use Smoking Status: Never smoker Tobacco Use: Non-smoker Assessment/Plan Debility 2/2 weakness s/p seizure, 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 Goal of rehab is muslim of functional independence. Plan: - Physical therapy for gait and balance - Occupational Therapy for ADLs - Speech therapy - As needed analgesics - Bowel protocol - Seizure disorder-no further episodes. Seizure precautions. Fall precautions. Continue Keppra 500mg BID - DVT prophylaxis: SCDs, Eliquis - Hypertension: Stable with good control, continue home dose of Metoprolol 12.5mg daily - Echo cardiogram -> EF 55-60% - Paroxysmal A-Fib -rate controlled. Continue Eliquis and metoprolol - HLD -continue home dose of statin. - Check LDL and Hba1c - Goal Hba1c <7% - Possible UTI - having frequency, urgency and burning on urination => Urinalysis was positive, started on Cipro 500mg daily x 3days - Plan is discharge on Saturday home with family, will arrange for Outpatient Physical therapy, Occupational therapy, and Speech therapy.
--- NOTE | 2018-05-22 11:08 | CASEMGMT ---
Social Work Team meeting held today with pt and daughter present. Pt is progressing in therapy well. Team, pt and dgt agreeable to discharge on Saturday05/24/18. Pt would benefit from outpt PT, OT, ST and would like to use [facility]. Pt does need a wheeled walker and would like to use [facility]. SW will follow up to assist with d/c planning. BRENNEN Han
--- NOTE | 2018-05-22 14:05 | CASEMGMT ---
Addendum entered by Stacey Patel 05/27/18 11:57: Note: Patient discharge on 05/24/18. Original Note: Social Work Pt planning discharge for Saturday05/22/2018. Pt lives with her daughter and is planning to return home with her at time of discharge. Dgt is planning on transporting pt home and to therapy appointments. Referral made to Demetrice at [facility] for outpt PT/OT/ST. [facility] will contact daughter to set up appointments. Referral made to Mayela at [facility] and wheeled walker will be delivered to pt room on Saturday. SW met with pt and informed of the above. PT is agreeable. No further d/c needs at this time. SW will remain available should need arise. BRENNEN Han
[2018-05-22 17:00] VITALS: BMI 27.7
[2018-05-22] MEDS: Senna/Docusate Sodium 1 Tablet 2 TABLET PO (21:37)
[2018-05-22] MEDS: Pravastatin 40 MG Tablet PO (21:37)
[2018-05-22 22:00] VITALS: BP 129/79; PULSE 74; RESP 18; TEMP 36.6; O2SAT 95
[2018-05-22 23:15] VITALS: BMI 27.7
--- NOTE | 2018-05-23 03:27 | NURSING ---
Reviewed and agree with LPNs fims and handoff
[2018-05-23 07:52] VITALS: BP 106/65; PULSE 89; RESP 18; TEMP 36.6; O2SAT 97
[2018-05-23 10:01] VITALS: BP 106/65; PULSE 89
[2018-05-23] MEDS: levETIRAcetam 500 MG Tablet PO ×2 (10:01→20:43)
[2018-05-23] MEDS: Metoprolol(XL)Succ 25 MG Tablet 12.5 MG PO (10:01)
[2018-05-23] MEDS: APIXABAN 5 MG TABLET PO ×2 (10:01→20:43)
[2018-05-23] MEDS: Omega-3 Acid Ethyl Esters 1 GM Capsule PO (10:01)
[2018-05-23] MEDS: Senna/Docusate Sodium 1 Tablet 2 TABLET PO (10:01)
[2018-05-23] MEDS: Ciprofloxacin 500 MG Tablet PO (10:01)
[2018-05-23 11:11] VITALS: BMI 27.7
--- NOTE | 2018-05-23 12:30 | PCM.PN.HOSP ---
Subjective: Patient urine cultures came back positive for E. 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 coli Current Medications Acetaminophen (Tylenol) 650 mg PO Q6H PRN PRN PRN Reason: Mild Pain (0-3/10)/Headache Last Admin: 05/13/18 08:18 Dose: 650 mg Apixaban (Eliquis) 5 mg PO BID [facility] Last Admin: 05/23/18 10:01 Dose: 5 mg Bisacodyl (Dulcolax) 10 mg RECTAL .PRN X 1 PRN PRN Reason: Constipation Ciprofloxacin HCl (Cipro) 500 mg PO DAILY [facility] Stop: 05/24/18 10:01 Last Admin: 05/23/18 10:01 Dose: 500 mg Fluticasone Propionate (Flonase Nasal [place]) 2 spray NASAL DAILY [facility] Last Admin: 05/23/18 09:17 Dose: Not Given Levetiracetam (Keppra Tablet) 500 mg PO BID [facility] Last Admin: 05/23/18 10:01 Dose: 500 mg Lidocaine/Diphenhydr/Alum/Mg/Simeth () 10 ml PO Q3H PRN PRN PRN Reason: PAIN Last Admin: 05/13/18 20:01 Dose: 10 ml Magnesium Hydroxide (Milk Of Magnesia) 30 ml PO .PRN X 1 PRN PRN Reason: Constipation Last Admin: 05/11/18 09:55 Dose: 30 ml Metoprolol Succinate (Toprol Xl (Beta Talha)) 12.5 mg PO DAILY [facility] Last Admin: 05/23/18 10:01 Dose: 12.5 mg Multivitamins/Minerals (Ocuvite) 1 tablet PO BID [facility] Last Admin: 05/23/18 10:01 Dose: 1 tablet Nutritional Formula (Lactose Free) (Ensure Enlive) 120 ml PO 4X/DAY [facility] Last Admin: 05/23/18 10:02 Dose: 120 ml Urxvl-2-Lzjd Ethyl Esters (Lovaza) 1 gm PO DAILY [facility] Last Admin: 05/23/18 10:01 Dose: 1 gm Ondansetron HCl (Zofran Odt) 8 mg PO Q8H PRN PRN PRN Reason: NAUSEA Last Admin: 05/16/18 15:34 Dose: 8 mg Pravastatin Sodium (Pravachol) 40 mg PO QHS [facility] Last Admin: 05/22/18 21:37 Dose: 40 mg Senna/Docusate Sodium (Senokot-S, Shivani-Colace) 2 tablet PO BID [facility] Last Admin: 05/23/18 10:01 Dose: 2 tablet Medical Necessity - Tobacco Use Smoking Status: Never smoker Tobacco Use: Non-smoker Assessment/Plan Patient is a 77 year old lady admitted to the inpatient rehab unit with weakness and debility following a seizure from a prior CVA 1. Physical debility: Patient is currently on the inpatient rehab unit PT OT as tolerated 2. 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 Paroxysmal A. fib on Eliquis as well as beta-blockers for rate control 4. Seizure disorder patient is on Keppra 5. DVT prophylaxis on Eliquis 6. Acute cystitis with E. coli patient managed appropriately Code Visit Inpatient E&M: 13474 Subs Hosp L2
--- NOTE | 2018-05-23 12:43 | PN_ITS ---
Subjective: Patient urine cultures came back positive for E. 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 coli Current Medications Acetaminophen (Tylenol) 650 mg PO Q6H PRN PRN PRN Reason: Mild Pain (0-3/10)/Headache Last Admin: 05/13/18 08:18 Dose: 650 mg Apixaban (Eliquis) 5 mg PO BID [facility] Last Admin: 05/23/18 10:01 Dose: 5 mg Bisacodyl (Dulcolax) 10 mg RECTAL .PRN X 1 PRN PRN Reason: Constipation Ciprofloxacin HCl (Cipro) 500 mg PO DAILY [facility] Stop: 05/24/18 10:01 Last Admin: 05/23/18 10:01 Dose: 500 mg Fluticasone Propionate (Flonase Nasal [place]) 2 spray NASAL DAILY [facility] Last Admin: 05/23/18 09:17 Dose: Not Given Levetiracetam (Keppra Tablet) 500 mg PO BID [facility] Last Admin: 05/23/18 10:01 Dose: 500 mg Lidocaine/Diphenhydr/Alum/Mg/Simeth () 10 ml PO Q3H PRN PRN PRN Reason: PAIN Last Admin: 05/13/18 20:01 Dose: 10 ml Magnesium Hydroxide (Milk Of Magnesia) 30 ml PO .PRN X 1 PRN PRN Reason: Constipation Last Admin: 05/11/18 09:55 Dose: 30 ml Metoprolol Succinate (Toprol Xl (Beta Talha)) 12.5 mg PO DAILY [facility] Last Admin: 05/23/18 10:01 Dose: 12.5 mg Multivitamins/Minerals (Ocuvite) 1 tablet PO BID [facility] Last Admin: 05/23/18 10:01 Dose: 1 tablet Nutritional Formula (Lactose Free) (Ensure Enlive) 120 ml PO 4X/DAY [facility] Last Admin: 05/23/18 10:02 Dose: 120 ml Gomdz-4-Vlqk Ethyl Esters (Lovaza) 1 gm PO DAILY [facility] Last Admin: 05/23/18 10:01 Dose: 1 gm Ondansetron HCl (Zofran Odt) 8 mg PO Q8H PRN PRN PRN Reason: NAUSEA Last Admin: 05/16/18 15:34 Dose: 8 mg Pravastatin Sodium (Pravachol) 40 mg PO QHS [facility] Last Admin: 05/22/18 21:37 Dose: 40 mg Senna/Docusate Sodium (Senokot-S, Shivani-Colace) 2 tablet PO BID [facility] Last Admin: 05/23/18 10:01 Dose: 2 tablet Medical Necessity - Tobacco Use Smoking Status: Never smoker Tobacco Use: Non-smoker Assessment/Plan Patient is a 77 year old lady admitted to the inpatient rehab unit with weakness and debility following a seizure from a prior CVA 1. Physical debility: Patient is currently on the inpatient rehab unit PT OT as tolerated 2. 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 Paroxysmal A. fib on Eliquis as well as beta-blockers for rate control 4. Seizure disorder patient is on Keppra 5. DVT prophylaxis on Eliquis 6. Acute cystitis with E. coli patient managed appropriately Code Visit Inpatient E&M: 94265 Subs Hosp L2
--- NOTE | 2018-05-23 13:23 | PCM.PN.NEU ---
Subjective: Patient seen, no new complaints. Tolerating therapy. Denies any blurry vision, double vision. Will be discharged home with outpatient Physical therapy, occupational therapy, and Speech therapy. - Physical Exam General: Alert, Oriented x3, Cooperative HEENT: Atraumatic, PERRLA, EOMI, Normocephalic Neck: Supple, No JVD, Negative Carotid Bruits Lungs: Clear to auscultation, Normal air movement Cardiovascular: Regular rate, No murmurs Abdomen: Bowel Sounds Present, Soft, Non Tender Extremities: No edema, Capillary Refill Less than 3 Seconds Skin: No rashes, No breakdown Musculoskeletal: No Tenderness to Palpation of Joints or Extremities Neurological: Cranial nerves II-XII grossly intact Psych/Mental Status: Normal Affect, Appropriate, Alert and oriented to time, place, person, mood and affect Vital Signs Temp Pulse Resp BP Pulse Ox 97.9 F 89 18 106/65 97 05/23/18 07:52 05/23/18 10:01 05/23/18 07:52 05/23/18 10:01 05/23/18 07:52 Oxygen Delivery Method Room Air Weight: 70.8 kg Body Mass Index (BMI) 27.7 Finger Stick Blood Glucose 122 Intake and Output for Last 24 Hours 05/21/18 05/22/18 05/23/18 23:59 23:59 23:59 Intake Total 320 / 320 460 / 460 Balance 320 / 320 460 / 460 Microbiology Past 72 Hours 05/21/18 19:16 Urine Culture - Final Urine, Clean Catch Presumptive E. coli Active Medications Acetaminophen (Tylenol) 650 mg PO Q6H PRN PRN PRN Reason: Mild Pain (0-3/10)/Headache Last Admin: 05/13/18 08:18 Dose: 650 mg Apixaban (Eliquis) 5 mg PO BID [facility] Last Admin: 05/23/18 10:01 Dose: 5 mg Bisacodyl (Dulcolax) 10 mg RECTAL .PRN X 1 PRN PRN Reason: Constipation Ciprofloxacin HCl (Cipro) 500 mg PO DAILY [facility] Stop: 05/24/18 10:01 Last Admin: 05/23/18 10:01 Dose: 500 mg Fluticasone Propionate (Flonase Nasal [place]) 2 spray NASAL DAILY [facility] Last Admin: 05/23/18 09:17 Dose: Not Given Levetiracetam (Keppra Tablet) 500 mg PO BID [facility] Last Admin: 05/23/18 10:01 Dose: 500 mg Lidocaine/Diphenhydr/Alum/Mg/Simeth () 10 ml PO Q3H PRN PRN PRN Reason: PAIN Last Admin: 05/13/18 20:01 Dose: 10 ml Magnesium Hydroxide (Milk Of Magnesia) 30 ml PO .PRN X 1 PRN PRN Reason: Constipation Last Admin: 05/11/18 09:55 Dose: 30 ml Metoprolol Succinate (Toprol Xl (Beta Talha)) 12.5 mg PO DAILY [facility] Last Admin: 05/23/18 10:01 Dose: 12.5 mg Multivitamins/Minerals (Ocuvite) 1 tablet PO BID [facility] Last Admin: 05/23/18 10:01 Dose: 1 tablet Nutritional Formula (Lactose Free) (Ensure Enlive) 120 ml PO 4X/DAY [facility] Last Admin: 05/23/18 10:02 Dose: 120 ml Folvo-3-Yyui Ethyl Esters (Lovaza) 1 gm PO DAILY [facility] Last Admin: 05/23/18 10:01 Dose: 1 gm Ondansetron HCl (Zofran Odt) 8 mg PO Q8H PRN PRN PRN Reason: NAUSEA Last Admin: 05/16/18 15:34 Dose: 8 mg Pravastatin Sodium (Pravachol) 40 mg PO QHS [facility] Last Admin: 05/22/18 21:37 Dose: 40 mg Senna/Docusate Sodium (Senokot-S, Shivani-Colace) 2 tablet PO BID [facility] Last Admin: 05/23/18 10:01 Dose: 2 tablet Medical Necessity - Tobacco Use Smoking Status: Never smoker Tobacco Use: Non-smoker Assessment/Plan Debility 2/2 weakness s/p seizure, 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 Goal of rehab is scientology of functional independence. Plan: - Physical therapy for gait and balance - Occupational Therapy for ADLs - Speech therapy - As needed analgesics - Bowel protocol - Seizure disorder-no further episodes. Seizure precautions. Fall precautions. Continue Keppra 500mg BID - DVT prophylaxis: SCDs, Eliquis - Hypertension: Stable with good control, continue home dose of Metoprolol 12.5mg daily - Echo cardiogram -> EF 55-60% - Paroxysmal A-Fib -rate controlled. Continue Eliquis and metoprolol - HLD -continue home dose of statin. - Check LDL and Hba1c - Goal Hba1c <7% - Possible UTI - having frequency, urgency and burning on urination => Urinalysis was positive, started on Cipro 500mg daily x 3days - Plan is discharge on Saturday home with family, will arrange for Outpatient Physical therapy, Occupational therapy, and Speech therapy.
--- NOTE | 2018-05-23 13:31 | PN.NEURO_ITS ---
Subjective: Patient seen, no new complaints. Tolerating therapy. Denies any blurry vision, double vision. Will be discharged home with outpatient Physical therapy, occupational therapy, and Speech therapy. - Physical Exam General: Alert, Oriented x3, Cooperative HEENT: Atraumatic, PERRLA, EOMI, Normocephalic Neck: Supple, No JVD, Negative Carotid Bruits Lungs: Clear to auscultation, Normal air movement Cardiovascular: Regular rate, No murmurs Abdomen: Bowel Sounds Present, Soft, Non Tender Extremities: No edema, Capillary Refill Less than 3 Seconds Skin: No rashes, No breakdown Musculoskeletal: No Tenderness to Palpation of Joints or Extremities Neurological: Cranial nerves II-XII grossly intact Psych/Mental Status: Normal Affect, Appropriate, Alert and oriented to time, place, person, mood and affect Vital Signs Temp Pulse Resp BP Pulse Ox 97.9 F 89 18 106/65 97 05/23/18 07:52 05/23/18 10:01 05/23/18 07:52 05/23/18 10:01 05/23/18 07:52 Oxygen Delivery Method Room Air Weight: 70.8 kg Body Mass Index (BMI) 27.7 Finger Stick Blood Glucose 122 Intake and Output for Last 24 Hours 05/21/18 05/22/18 05/23/18 23:59 23:59 23:59 Intake Total 320 / 320 460 / 460 Balance 320 / 320 460 / 460 Microbiology Past 72 Hours 05/21/18 19:16 Urine Culture - Final Urine, Clean Catch Presumptive E. coli Active Medications Acetaminophen (Tylenol) 650 mg PO Q6H PRN PRN PRN Reason: Mild Pain (0-3/10)/Headache Last Admin: 05/13/18 08:18 Dose: 650 mg Apixaban (Eliquis) 5 mg PO BID [facility] Last Admin: 05/23/18 10:01 Dose: 5 mg Bisacodyl (Dulcolax) 10 mg RECTAL .PRN X 1 PRN PRN Reason: Constipation Ciprofloxacin HCl (Cipro) 500 mg PO DAILY [facility] Stop: 05/24/18 10:01 Last Admin: 05/23/18 10:01 Dose: 500 mg Fluticasone Propionate (Flonase Nasal [place]) 2 spray NASAL DAILY [facility] Last Admin: 05/23/18 09:17 Dose: Not Given Levetiracetam (Keppra Tablet) 500 mg PO BID [facility] Last Admin: 05/23/18 10:01 Dose: 500 mg Lidocaine/Diphenhydr/Alum/Mg/Simeth () 10 ml PO Q3H PRN PRN PRN Reason: PAIN Last Admin: 05/13/18 20:01 Dose: 10 ml Magnesium Hydroxide (Milk Of Magnesia) 30 ml PO .PRN X 1 PRN PRN Reason: Constipation Last Admin: 05/11/18 09:55 Dose: 30 ml Metoprolol Succinate (Toprol Xl (Beta Talha)) 12.5 mg PO DAILY [facility] Last Admin: 05/23/18 10:01 Dose: 12.5 mg Multivitamins/Minerals (Ocuvite) 1 tablet PO BID [facility] Last Admin: 05/23/18 10:01 Dose: 1 tablet Nutritional Formula (Lactose Free) (Ensure Enlive) 120 ml PO 4X/DAY [facility] Last Admin: 05/23/18 10:02 Dose: 120 ml [place]nhud-2-Pkoq Ethyl Esters (Lovaza) 1 gm PO DAILY [facility] Last Admin: 05/23/18 10:01 Dose: 1 gm Ondansetron HCl (Zofran Odt) 8 mg PO Q8H PRN PRN PRN Reason: NAUSEA Last Admin: 05/16/18 15:34 Dose: 8 mg Pravastatin Sodium (Pravachol) 40 mg PO QHS [facility] Last Admin: 05/22/18 21:37 Dose: 40 mg Senna/Docusate Sodium (Senokot-S, Shivani-Colace) 2 tablet PO BID [facility] Last Admin: 05/23/18 10:01 Dose: 2 tablet Medical Necessity - Tobacco Use Smoking Status: Never smoker Tobacco Use: Non-smoker Assessment/Plan Debility 2/2 weakness s/p seizure, 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 Goal of rehab is temple of functional independence. Plan: - Physical therapy for gait and balance - Occupational Therapy for ADLs - Speech therapy - As needed analgesics - Bowel protocol - Seizure disorder-no further episodes. Seizure precautions. Fall precautions. Continue Keppra 500mg BID - DVT prophylaxis: SCDs, Eliquis - Hypertension: Stable with good control, continue home dose of Metoprolol 12.5mg daily - Echo cardiogram -> EF 55-60% - Paroxysmal A-Fib -rate controlled. Continue Eliquis and metoprolol - HLD -continue home dose of statin. - Check LDL and Hba1c - Goal Hba1c <7% - Possible UTI - having frequency, urgency and burning on urination => Urinalysis was positive, started on Cipro 500mg daily x 3days - Plan is discharge on Saturday home with family, will arrange for Outpatient Physical therapy, Occupational therapy, and Speech therapy.
--- NOTE | 2018-05-23 16:29 | CHAPLAIN ---
Type of Pastoral Visit ___ Initial Visit _x__ Follow-up Visit ___ On-call Visit ___ General Patient Visit ___ Spiritual Assessment ___ Family Conference ___ Bereavement ___ Rapid Response ___ Code Blue ___ Other (describe below) Pastoral Care Referral From _x__ Patient ___ Family _x__ Nurse ___ Physician ___ Air Quality Technician ___ [place] Manager ___ Other (describe below) Sacrament/Intervention _x__ Active listening ___ Anointing ___ Church ___ Bereavement ___ Communion ___ Mayela exploration ___ ___ Life review _x__ Prayer ___ Reconciliation ___ Sacrament of Sick _x__ Supportive presence ___ Wedding ___ Other (describe below) Pastoral Comments RN mentions that patient was tearful this morning and could benefit from a spiritual care visit;
--- NOTE | 2018-05-23 17:08 | PCM.DC ---
- Discharge Diagnoses Reason(s) for Visit for Discharge Instructions: CVA, Seizures You will use the following diet at home:: Regular Your food should be the consistency of: Regular Your liquids should be the consistency of: Regular/Thin Discharge Activity: May Not Drive - for 6 month after the seizure, May Shower, May Take a Tub Bath, Use Walker Weight Bearing Status: Weight bearing as tolerated Call your doctor if you observe: Fever of 101 or Higher, Coldness, Increased Pain, Numbness or Tingling, Change in Color, Inability to urinate, Inability to have a bowel movement, Using more than one pad per hour, Shortness of breath, Dizziness, Fainting spells, Swelling in the ankles, Chest pain, Prolonged hiccoughing, Increased palpitations (irregular heartbeat), Calf discomfort, Uncontrolled pain Allergies/Adverse Reactions: Allergies No Known Allergies Allergy (Verified 05/07/18 22:30) Medications to take at Discharge [place]-3 Fatty Acids/Fish Oil [Fish Oil 1,000 mg Capsule] 1 tab PO DAILY 07/10/17 Vit C/E/Zn/Coppr/Lutein/Zeaxan [Preservision Areds 2 Softgel] 1 each PO BID 05/07/18 Apixaban [Eliquis] 5 mg PO BID 05/09/18 Fluticasone 0.05% [Flonase Nasal [place]] 2 spray NASAL DAILY 05/09/18 Metoprolol(XL)Succ [Toprol Xl (Beta Talha)] 12.5 mg PO DAILY 05/09/18 Pravastatin [Pravachol] 40 mg PO QHS 05/09/18 Acetaminophen [Tylenol Tablet] 650 mg PO Q6H PRN PRN tablet 05/23/18 levETIRAcetam tablet [Keppra tablet] 500 mg PO BID #120 tab 05/23/18 The following prescriptions were given: levETIRAcetam tablet [Keppra tablet] 500 mg PO BID #120 tab Primary Care Physician: Earnest Powers MD [Primary Care Provider] - Test Results: Test results from this visit will be discussed in further detail at your follow-up appointment, if applicable. Please Follow Up With: Dr. Ayse Avendano Please Follow Up With: [facility]-PARTS CLERK [employer]IN[employer]NANCE Angie Dean Please Follow Up With: [facility] - Outpatient PT, OT, Speech Proposed Discharge Date: 05/24/18
--- NOTE | 2018-05-23 17:12 | DCINST_ITS ---
- Discharge Diagnoses Reason(s) for Visit for Discharge Instructions: CVA, Seizures You will use the following diet at home:: Regular Your food should be the consistency of: Regular Your liquids should be the consistency of: Regular/Thin Discharge Activity: May Not Drive - for 6 month after the seizure, May Shower, May Take a Tub Bath, Use Walker Weight Bearing Status: Weight bearing as tolerated Call your doctor if you observe: Fever of 101 or Higher, Coldness, Increased Pain, Numbness or Tingling, Change in Color, Inability to urinate, Inability to have a bowel movement, Using more than one pad per hour, Shortness of breath, Dizziness, Fainting spells, Swelling in the ankles, Chest pain, Prolonged hiccoughing, Increased palpitations (irregular heartbeat), Calf discomfort, Uncontrolled pain Allergies/Adverse Reactions: Allergies No Known Allergies Allergy (Verified 05/07/18 22:30) Medications to take at Discharge [place]-3 Fatty Acids/Fish Oil [Fish Oil 1,000 mg Capsule] 1 tab PO DAILY Vit C/E/Zn/Coppr/Lutein/Zeaxan [Preservision Areds 2 Softgel] 1 each PO BID 02/19 Apixaban [Eliquis] 5 mg PO BID 05/09/18 Fluticasone 0.05% [Flonase Nasal [place]] 2 spray NASAL DAILY 05/09/18 Metoprolol(XL)Succ [Toprol Xl (Beta Talha)] 12.5 mg PO DAILY 05/09/18 Pravastatin [Pravachol] 40 mg PO QHS 05/09/18 Acetaminophen [Tylenol Tablet] 650 mg PO Q6H PRN PRN tablet 05/23/18 levETIRAcetam tablet [Keppra tablet] 500 mg PO BID #120 tab 05/23/18 The following prescriptions were given: levETIRAcetam tablet [Keppra tablet] 500 mg PO BID #120 tab Primary Care Physician: Earnest Powers MD [Primary Care Provider] - Test Results: Test results from this visit will be discussed in further detail at your follow- up appointment, if applicable. Please Follow Up With: Dr. Ayse Avendano Please Follow Up With: [facility]-S[employer]ILL[employer] DUAL RATE OFFICER Angie Dean Please Follow Up With: [facility] - Outpatient PT, OT, Speech Proposed Discharge Date: 05/24/18
--- NOTE | 2018-05-23 17:12 | PCM.RU.DC ---
Rehab Discharge Summary DATE OF ADMISSION: 05/09/18 DATE OF DISCHARGE: 05/24/18 - Rehab Diagnosis CVA, Seizures Discharge Diet: No Restrictions Discharge Activity: May Not Drive - for 6 month after the seizure, May Shower, May Take a Tub Bath, Use Walker Weight Bearing Status: Weight bearing as tolerated Call your doctor if you observe: Fever of 101 or Higher, Coldness, Increased Pain, Numbness or Tingling, Change in Color, Inability to urinate, Inability to have a bowel movement, Using more than one pad per hour, Shortness of breath, Dizziness, Fainting spells, Swelling in the ankles, Chest pain, Prolonged hiccoughing, Increased palpitations (irregular heartbeat), Calf discomfort, Uncontrolled pain Home Medications: Medications to take at Discharge [place]-3 Fatty Acids/Fish Oil [Fish Oil 1,000 mg Capsule] 1 tab PO DAILY 07/10/17 Vit C/E/Zn/Coppr/Lutein/Zeaxan [Preservision Areds 2 Softgel] 1 each PO BID 05/07/18 Apixaban [Eliquis] 5 mg PO BID 05/09/18 Fluticasone 0.05% [Flonase Nasal [place]] 2 spray NASAL DAILY 05/09/18 Metoprolol(XL)Succ [Toprol Xl (Beta Talha)] 12.5 mg PO DAILY 05/09/18 Pravastatin [Pravachol] 40 mg PO QHS 05/09/18 Acetaminophen [Tylenol Tablet] 650 mg PO Q6H PRN PRN tablet 05/23/18 levETIRAcetam tablet [Keppra tablet] 500 mg PO BID #120 tab 05/23/18 Following Prescrptions Were Given to Patient: levETIRAcetam tablet [Keppra tablet] 500 mg PO BID #120 tab Primary Care Physician: Earnest Powers MD [Primary Care Provider] - Please Follow Up With: Dr. Ayse Avendano Please Follow Up With: [facility]-[employer] INSTALLER Angie Dean Please Follow Up With: [facility] - Outpatient PT, OT, Speech Disposition: Home - With outpatient Physical therapy, Occupational therapy, and Speech therapy Minutes spent on discharge:: 40 Patient Condition:: Good Rehab Course The Patient is a 77-year-old left handed female who was admitted to the rehab unit for rehabilitation for debility, and weakness after suffering a seizure. She has a history of paroxysmal atrial fibrillation, which she is on Eliquis 5mg BID, hypertension, hyperlipidemia, and a history of breast cancer. Initially the patient presented to [facility] ED on May 07, 2018 with left sided facial droop and slurred speech. A CT of the brain showed no acute hemorrhage, hematoma or demonstration of new nonhemorrhagic infarct zone. 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 CTA showed no acute thrombus, there was less than 50% narrowing of ICAs bilaterally. An Echo showed an EJ fraction of 55-60%. The patient was transferred to [facility] for further evaluation. She was not found to have a new infarct. 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 She lives with her daughter and her family in a one story home with a finished basement, the patient lives on the first floor, and the daughter and her family live in the finished basement. She has a ramp to get into the home, according to the daughter the home is handicapped assessable. The patient was previously completely functionally independent, doing all her own ADLs, walking and taking care of her home. She is admitted to the rehab unit in order to restore her previous level of functional independence. With Physical therapy, she is able to walk greater than 150 feet with a cane, walked in the community, over different surfaces, she still has some trouble lifting and clearing that left foot, the team recommend that she wears shoes when walking and to use a walker instead of a cane, for better support and safety. She has done several steps with a light hand to no hand for assistance. With Occupational therapy, she is able to do all her own personal care with out difficulty. She is stand by to light hand to get in and out of the shower. She continues to have some weakness in that left hand, will drop things occasionally if she is holding items in that hand. With Speech therapy, she is having no difficulty with swallowing. She still requires work with cognitive issues, memory, and high executive level functions. They recommend that she has assistance when doing her check book or finances. With Nursing, she did have a hospital acquired UTI, was started on Cipro 500mg for 3 days, her last dose will be on the morning of discharge. From a Medical stand point she will need to be on Keppra for life, she was started on 500mg BID script was given for 2 months until follow up appointment, no driving for the next 6 months. She will have a follow up appointment with Neurology on 06/16 @ 11:00 AM. The plan is to discharge on Saturday home with family. She will have outpatient Physical therapy, Occupational therapy, and Speech therapy. Meaningful Use Info Meaningful Use Diagnoses (Choose all that apply): None applicable
--- NOTE | 2018-05-23 17:17 | DS.PCM_ITS ---
Rehab Discharge Summary DATE OF ADMISSION: 05/09/18 DATE OF DISCHARGE: 05/24/18 - Rehab Diagnosis CVA, Seizures Discharge Diet: No Restrictions Discharge Activity: May Not Drive - for 6 month after the seizure, May Shower, May Take a Tub Bath, Use Walker Weight Bearing Status: Weight bearing as tolerated Call your doctor if you observe: Fever of 101 or Higher, Coldness, Increased Pain, Numbness or Tingling, Change in Color, Inability to urinate, Inability to have a bowel movement, Using more than one pad per hour, Shortness of breath, Dizziness, Fainting spells, Swelling in the ankles, Chest pain, Prolonged hiccoughing, Increased palpitations (irregular heartbeat), Calf discomfort, Uncontrolled pain Home Medications: Medications to take at Discharge [place]-3 Fatty Acids/Fish Oil [Fish Oil 1,000 mg Capsule] 1 tab PO DAILY Vit C/E/Zn/Coppr/Lutein/Zeaxan [Preservision Areds 2 Softgel] 1 each PO BID 02/19 Apixaban [Eliquis] 5 mg PO BID 05/09/18 Fluticasone 0.05% [Flonase Nasal [place]] 2 spray NASAL DAILY 05/09/18 Metoprolol(XL)Succ [Toprol Xl (Beta Talha)] 12.5 mg PO DAILY 05/09/18 Pravastatin [Pravachol] 40 mg PO QHS 05/09/18 Acetaminophen [Tylenol Tablet] 650 mg PO Q6H PRN PRN tablet 05/23/18 levETIRAcetam tablet [Keppra tablet] 500 mg PO BID #120 tab 05/23/18 Following Prescrptions Were Given to Patient: levETIRAcetam tablet [Keppra tablet] 500 mg PO BID #120 tab Primary Care Physician: Earnest Powers MD [Primary Care Provider] - Please Follow Up With: Dr. Ayse Avendano Please Follow Up With: [facility]-MANAGER [employer]PARTMENT Angie Dean Please Follow Up With: [facility] - Outpatient PT, OT, Speech Disposition: Home - With outpatient Physical therapy, Occupational therapy, and Speech therapy Minutes spent on discharge:: 40 Patient Condition:: Good Rehab Course The Patient is a 77-year-old left handed female who was admitted to the rehab unit for rehabilitation for debility, and weakness after suffering a seizure. She has a history of paroxysmal atrial fibrillation, which she is on Eliquis 5mg BID, hypertension, hyperlipidemia, and a history of breast cancer. Initially the patient presented to [facility] ED on May 07, 2018 with left sided facial droop and slurred speech. A CT of the brain showed no acute hemorrhage, hematoma or demonstration of new nonhemorrhagic infarct zone. 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 CTA showed no acute thrombus, there was less than 50% narrowing of ICAs bilaterally. An Echo showed an EJ fraction of 55-60%. The patient was transferred to [facility] for further evaluation. She was not found to have a new infarct. 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 She lives with her daughter and her family in a one story home with a finished basement, the patient lives on the first floor, and the daughter and her family live in the finished basement. She has a ramp to get into the home, according to the daughter the home is handicapped assessable. The patient was previously completely functionally independent, doing all her own ADLs, walking and taking care of her home. She is admitted to the rehab unit in order to restore her previous level of functional independence. With Physical therapy, she is able to walk greater than 150 feet with a cane, walked in the community, over different surfaces, she still has some trouble lifting and clearing that left foot, the team recommend that she wears shoes when walking and to use a walker instead of a cane, for better support and safety. She has done several steps with a light hand to no hand for assistance. With Occupational therapy, she is able to do all her own personal care with out difficulty. She is stand by to light hand to get in and out of the shower. She continues to have some weakness in that left hand, will drop things occasionally if she is holding items in that hand. With Speech therapy, she is having no difficulty with swallowing. She still requires work with cognitive issues, memory, and high executive level functions. They recommend that she has assistance when doing her check book or finances. With Nursing, she did have a hospital acquired UTI, was started on Cipro 500mg for 3 days, her last dose will be on the morning of discharge. From a Medical stand point she will need to be on Keppra for life, she was started on 500mg BID script was given for 2 months until follow up appointment, no driving for the next 6 months. She will have a follow up appointment with Neurology on 06/16 @ 11:00 AM. The plan is to discharge on Saturday home with family. She will have outpatient Physical therapy, Occupational therapy, and Speech therapy. Meaningful Use Info Meaningful Use Diagnoses (Choose all that apply): None applicable
[2018-05-23 19:54] VITALS: BP 101/67; PULSE 77; RESP 18; TEMP 36.6; O2SAT 99
[2018-05-23] MEDS: Pravastatin 40 MG Tablet PO (20:43)
[2018-05-23 20:46] VITALS: PULSE 77; RESP 18; O2SAT 99
[2018-05-23 20:51] VITALS: BMI 27.7
--- NOTE | 2018-05-24 00:23 | NURSING ---
REVIEWED AND AGREE WITH SCHOOL COUNSELLOR'S FIM AND HANDOFF CHARTING.
[2018-05-24 07:35] VITALS: BP 111/75; PULSE 75; RESP 18; TEMP 36.6; O2SAT 100
[2018-05-24] MEDS: Ciprofloxacin 500 MG Tablet PO (09:57)
[2018-05-24] MEDS: APIXABAN 5 MG TABLET PO (09:57)
[2018-05-24 09:58] VITALS: BP 111/75; PULSE 75
[2018-05-24] MEDS: Omega-3 Acid Ethyl Esters 1 GM Capsule PO (09:58)
[2018-05-24] MEDS: Metoprolol(XL)Succ 25 MG Tablet 12.5 MG PO (09:58)
[2018-05-24] MEDS: levETIRAcetam 500 MG Tablet PO (09:58)
[2018-05-24] MEDS: Acetaminophen 325 MG Tablet 650 MG PO (11:08)
--- NOTE | 2018-05-24 15:50 | NURSING ---
went over DC instructions, medications and appts. with pt and daughter both verbalized understanding denied questions, pt taken to POV by wheelchair with all personal belongings in hand, in stable condition.
[2018-05-24 15:51] VITALS: BP 111/75; PULSE 75; RESP 18; TEMP 36.6; O2SAT 100
--- NOTE | 2018-05-27 11:58 | CASEMGMT ---
Insurance Notified insurance of patient discharge on 05/24/18 to home with family. Auth#[id number] Stacey HUTTON, CANVASSING MANAGER
== END 2018-05-24 14:15 | disposition home or self-care (01) | DRG 57 ==
PROVIDERS: Nurse Practitioner Acute Care; Admitting Provider Psychiatry & Neurology Neurology; Family Provider Family Medicine; PCP Family Medicine; Visit Provider Hospitalist
DX: I69.398 Other sequelae of cerebral infarction (principal); G40.509 Epileptic seizures related to external causes, not intractable, without status epilepticus; I69.354 Hemiplegia and hemiparesis following cerebral infarction affecting left non-dominant side; N30.00 Acute cystitis without hematuria; I48.0 Paroxysmal atrial fibrillation; I10 Essential (primary) hypertension; E78.5 Hyperlipidemia, unspecified; Z85.3 Personal history of malignant neoplasm of breast; B96.20 Unspecified Escherichia coli [E. coli] as the cause of diseases classified elsewhere
CPT/HCPCS: 36415; 80048; 81001; 85027; 87086; 87088; 87186; 92507; 92523; 92526; 97110; 97116; 97162; 97166; 97530; 97535; 97802

== ENCOUNTER → 2018-06-16 12:03 | Outpatient (CLI) | payer MEDICARE, SELFPAY ==
[2018-06-19 10:42] LABS: KEPPRA (LEVETIRACETAM) 25.6 ug/mL (10.0-40.0)
== END ==
PROVIDERS: Family Provider Family Medicine; PCP Family Medicine; Visit Provider Clinical Nurse Specialist Acute Care
DX: R56.9 Unspecified convulsions (principal); Z86.73 Personal history of transient ischemic attack (TIA), and cerebral infarction without residual deficits
CPT/HCPCS: 36415; 80177

== ENCOUNTER → 2018-07-01 20:25 | Outpatient (CLI) | payer MEDICARE, SELFPAY | PROVIDERS: Family Provider Family Medicine; PCP Family Medicine; Visit Provider Clinical Nurse Specialist Acute Care | DX: G47.33 Obstructive sleep apnea (adult) (pediatric) (principal) | CPT/HCPCS: 95811 ==

== ENCOUNTER 2018-08-18 09:00 | Outpatient (RCR) | payer MEDICARE, SELFPAY ==
--- NOTE | 2018-05-29 16:59 | HP.PTEVAL_ITS ---
Patient's Visit Information HENRY DEGROOT is a 77 year old F referred to Physical Therapy by LALA RASHID with a diagnosis of seizure, debility. Date of Evaluation: 05/29/18 Physical Therapist: Thomas Daley DPT, OC - Visit Plan Frequency: 3x /Week Duration: 4-6 Weeks Plan: 3x/week for 3-6 for: 1. gait without AD focus on L LE coordination, progress Home walking as able. 2. transfers from chair. 3. L LE balance and strength and coordination ex progressing to I home program. 4. gastroc stretching - Subjective Subjective: Had seizure effecting previous stroke May 07. Called 911. Sent to [facility] and seized for 2 hours. Now L eft sided weakness arm and leg, can't pickle cutter L leg like she should. In rehab until last Saturday. Needs walker and did not prior. Had cane but did not use it prior. Needed it on uneven ground. Now on seizure meds. lives with daughter since last fall. No steps. Dresses self , bathes self, not doing house work now due to walker in the way. No pain. Sleeping well. Activities include reading and L eye has problems at times now. - Objective Walks with wh walker and L ankle feels stiff, short left step length and slow. Needs UE or Min A to exit chair. I with bed transfers. L gastroc to -5 degrees DF, tight. Motor control L ankle inv/ev not as good as R. AROM B knee and hips WFL, L side weaker at 3+ throughout and R at 4-. reflexes 2/3 B patella and achilles. Sensation WNL grossly in B LE. Able to stand without walker and walk with Min A without walker but needs cues for L step length and diminished motor control on L. L SLS not able. Step ups L weak and requires 2 UE, R knee is painful and she avoids steps with it. turns to side to descend steps with L. FGA not appropriate yet - Goals Goal 1:: Walk without AD I in and out of PT safe and I with normal gait pattern. Goal Time Frame: 4-6 Weeks Goal 2:: Tolerate FGA and score 22/30 Goal Time Frame: 4-6 Weeks Goal 3:: exit chair without UE I Goal Time Frame: 4-6 Weeks Goal 4:: I approp HEP tominimize future deficits Goal Time Frame: 4-6 Weeks - Rehabilitation Potential Physical Therapy Diagnosis: diminished mobility from seizure - Anticipated Interventions Patient/Client Instruction: Educate patient on: Condition, Plan of Care For the Purpose of:: To improve safety with gait Therapeutic Exercise to Include: Strength training, Flexibilty training, Gait and locomotor training For the Purpose of:: To increase ROM, To improve nutrient delivery to tissue, To improve ability of physical actions for home/community/work/leisure, To improve gait and locomotor functions, To improve safety with gait Thank you for the opportunity to evaluate your patient. For Medicare and Medicare HMO plans, please review the plan of care and approve it. It will need to be FAXED BACK to us at [phone] for Medicare purposes. Please let me know if there are questions or concerns regarding this plan of care. Physician Signature: Date:
--- NOTE | 2018-05-29 18:03 | HP.OTEVAL ---
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 Date of Evaluation: 05/29/18 Occupational Therapist: Damaris Luis - Subjective Subjective: Pt seen for initial occupational therapy after suffering seizure from prior CVA 05/07/18, pt had a stroke 2 yrs ago. She was hospitalized and spent 16 days on rehab floor. Lives w/ daughter 2 story house w/ first floor setup all handicap assessible. Ramp to enter house, before May was amb w/ no device, since hospitalization has been using WW. Walk in shower w/ 7 grab bars, HHS and shower chair. Pt has comfort height commode with grab bars. Indep w/ meal prep tasks and laundry tasks. L hand dominent. - Objective Objective/Observation: Decreased coordination and strength L UE - ROM ROM Comments: ROM BUE WFL all joints, all planes - Strength Assistant Professor Of Anthropology: R 25#, L 35# Lateral Pinch: R 4#, L 6# Tripod Pinch: R 4#, L 4# Strength Comments: Generalized R UE strength 4/5, L UE strength 3+/5 - Edema Other: No edema - Sensation Sensation Comments: Monofilament L hand 3.84. Pt states had numbness/tingling L hand prior to this hospitalization - Nine Hole Peg Right: 20.8 seconds Left: 35.8 seconds Comments: decreased coordination of L hand - DASH-Disabilities of Arm, Shoulder& Hand DASH Sum: 102 - Goals Goal:: Pt will progress w/ L UE strength 4/5 to assist with functional transfers by d/c from OT services. Goal:: Pt will progress w/ L UE preschool teacher's assistant strength by 10# to assist with opening a new jar by d/c from OT services. Goal:: Pt will demo increased lateral pinch strength by 4# to squeeze containers such has shampoo and toothpaste independently Goal:: Pt will progress w/ nine hole peg test decreasing time by 10 seconds of L hand demonstrating increased coordination skills by d/c from OT. Goal:: Pt will demo increased bilateral coordination skills and fine motor skills to manipulate all fasteners independently by d/c from OT services. Goal:: Pt will demo good safety awareness in kitchen area using WW with adaptive techniques and increased coordination skills to make simple meals w/o spillage independently by d/c from OT services. Goal:: Pt will be educated on L UE HEP with good understanding and demo 100%x Goal:: Pt will be educated on safety awareness with use of WW for BADLS/IADLs with good understanding and demo 100%x. - Rehabilitation General Assessment: Pt demo decreased L hand coordination, difficulty manipulating tasks with L hand and decreased strength of L hand to complete BADLs/IADLs, pt demo decreased safety with use of walker. Pt would benefit from direct occupational therapy to increase L hand strength, L hand coordination, indep and safety w/ BADLs/IADLs, educate on safety with WW for BADLs/IADLs and use of DME/AE. Rehabilitation Potential: Excellent - Anticipated Interventions Anticipated Interventions: Strengthening, Sensory Retraining, Joint Protection/Energy Conservation, Fine Motor Coord/Satish, Neuro Reeducation, Sensory Stimulation, ADL Training, Education re assistive Equipment, Caregiver Training, Home Program - Visit Plan Frequency: 3x /Week Duration: 3 Weeks General Plan: Pt would benefit from direct occupational therapy to increase L hand strength, L hand coordination, indep and safety w/ BADLs/IADLs, educate on safety with WW for BADLs/IADLs and use of DME/AE. TEXT: Thank you for the opportunity to evaluate your patient. For Medicare and Medicare HMO plans, please review the plan of care and approve it. It will need to be FAXED BACK to us at [phone] for Medicare purposes. Please let me know if there are questions or concerns regarding this plan of care. Physician Signature: Date:
--- NOTE | 2018-06-20 12:30 | HP.PTREVAL_ITS ---
Lea Tierney, DENNY-C, It has been my pleasure to treat HENRY DEGROOT over the last 10 visits for seizure, debility. Please see the progress note below for an update on the physical therapy plan of care! Subjective: [facility] IS KEEPING HER OUT OF IT. Groggy. Tired today form being up early. Zonked in the afternoon and today is worse than usual. Neuro is doing blood test on her. L side getting stronger beore today. Doing ex in bed at home but not at counter. Uses walker all the time at home. Objective/Function: Tolerated FGA today and did better despite not feeling good. Steps are with L only due to R knee OA and needs UE. hesitant to shift weight to step over. IMPROVING AND STILL APPROPRIATE TO CONTINUE. Plan Plan: 3X/WEEK FOR 3 WEEKS... 1. Gait challenges without walker. 2. Large weigth shifts step over and sit to stand. 3. LE/Postural strength in standing and progress HEP. Goals Goal 1:: Walk without AD I in and out of PT safe and I with normal gait pattern. Goal Time Frame: 4-6 Weeks Goal Progress: Progressing Goal 2:: Tolerate FGA and score 22/30 Goal Time Frame: 4-6 Weeks Goal Progress: Progressing Goal 3:: exit chair without UE I Goal Time Frame: 4-6 Weeks Goal Progress: with cues. Goal 4:: I approp HEP tominimize future deficits Goal Time Frame: 4-6 Weeks Goal Progress: Progressing Anticipated Interventions Patient/Client Instruction: Educate patient on: Condition, Plan of Care For the Purpose of:: To improve safety with gait Therapeutic Exercise to Include: Strength training, Flexibilty training, Gait and locomotor training For the Purpose of:: To increase ROM, To improve nutrient delivery to tissue, To improve ability of physical actions for home/community/work/leisure, To improve gait and locomotor functions, To improve safety with gait Please do not hesitate to contact me at [phone] by phone or Fax: if you have questions or concerns regarding this new plan of care! Sincerely, Thomas Daley, DPT, OC
--- NOTE | 2018-06-24 17:03 | HP.OTDCSUM ---
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 Please see the following information for a summary of their discharge status. - Objective Objective/Function: increase functional use of L hand coordination skills and L hand brand communications manager strength. - Goals Patient Goals: Regain Strength, Improve Fine Motor Skills, Use Hand/Wrist/Arm Normally Again, Decrease Tingling/Numbness, Be More Independent in ADLS, Resume Former Household Responsibilities (Cooking,Cleaning,Yard, etc.), Resume Hobbies Goal:: Pt will progress w/ L UE strength 4/5 to assist with functional transfers by d/c from OT services. Goal:: Pt will progress w/ L UE brand communications manager strength by 10# to assist with opening a new jar by d/c from OT services. Goal:: Pt will demo increased lateral pinch strength by 4# to squeeze containers such has shampoo and toothpaste independently Goal:: Pt will progress w/ nine hole peg test decreasing time by 10 seconds of L hand demonstrating increased coordination skills by d/c from OT. Goal:: Pt will demo increased bilateral coordination skills and fine motor skills to manipulate all fasteners independently by d/c from OT services. Goal:: Pt will demo good safety awareness in kitchen area using WW with adaptive techniques and increased coordination skills to make simple meals w/o spillage independently by d/c from OT services. Goal:: Pt will be educated on L UE HEP with good understanding and demo 100%x Goal:: Pt will be educated on safety awareness with use of WW for BADLS/IADLs with good understanding and demo 100%x. - Plan Plan: d/c OT services. - D/C Information Discharge Comments: Pt feels that she is back to her prior level of function with her L hand coordination skills. Pt continues to have numbness and tingling of L hand that she had prior to last hospitalization. Pt has progressed with L hand coordination skills with nine hole peg test to 28.9 seconds. Pt continues to remain L lateral brand communications manager strength 6lbs and L brand communications manager strength 35lbs. Pt states has been completing meal prep tasks at home with some spillage of ingredients while cooking. Pt has been educated on compensatory strategies to assist with opening containers and to use larger containers of toothpaste versus a small tube of toothpaste. Pt able to zip/unzip her coat and manipulate medium sized buttons. Pt has been educated on HEP, energy conservation, adaptive techniques and fine motor coordination skills to complete at home. Pt no longer requires skilled OT services at this time. Pt feels she is back to her PLOF. D/C OT services at this time. If there are questions or concerns regarding this patient's occupational therapy, please fell free to call me at [phone]. Thank you for the referral of this patient. Sincerely, Damaris Luis
--- NOTE | 2018-06-25 15:21 | HP.SP.AD ---
History - History Date of Eval: 06/23/18 Date of Onset of Diagnosis: 05/07/18 Previous speech therapy: Yes Results: Monica participated in 38 speech-language therapy treatment sessions at this facility in 2016 secondary to CVA targeting cognitive-linguistic deficits. She made consistent progress and was at or near baseline in all areas at discharge. Smoking Status: Never smoker Hx Smoking: No Hx Tobacco Use: No - Pain Is pain an issue with your current prescribed condition?: No - Personal Patients Living Arrangements: With Family Patient Allergies - Allergies Allergies No Known Allergies Allergy (Verified 05/07/18 22:30) Subjective Cog/Ling/Com - Subjective Cognitive/Linguistic/Communication: Monica's daughter reports that since the seizure, Monica demonstrates increased impulsivity and interrupting as well as difficulty following instructions and remaining organized. CLQT - CLQT CLQT Administered: Yes CLQT: Cognitive Linguistic Quick Test (CLQT) is a criterion - referenced assessment designed for adults between the ages of 18 and 89 with known or suspected neurological dysfuntions. The CLQT is to assess strength and weaknesses in five cognitive domains. Severity ratings are within normal limits, mild, moderate, severe deficits. The subtests are as follows: Date: 06/25/18 - CLQT Comments Subtests Personal Facts: 8 Cutoff: 8 Symbol Cancellation: 12 Cutoff: 10 Confrontation Namin Cutoff: 10 Clock Drawin Cutoff: 11 Story Retellin Cutoff: 5 Symbol Trails: 9 Cutoff: 6 Comments Monica was pleasant and appropriate throughout the evaluation. Though she scored above the cutoff score on all administered subtests on this date, she demonstrated mild-moderate impulsivity during testing, attempting to grab the pen and begin tasks before all of the instructions were read. Other Impressions - Comments Comments -: Monica is currently living with her daughter. Since the seizure, she has not paid bills or administered her own medications, but would like to return to independence in these areas. She states she is considering moving to assisted living at some point in the future if she is able to regain independence mentally and physically. She is currently attending PT and OT at this facility, as well. Plan - Plan Plan: Skilled speech-language therapy is thereby warranted/medically necessary in order to improve the patient's cognitive-linguistic functioning and thereby facilitate her highest level of safe, independent functioning. - Recommendations Treatment Warranted: Yes - Frequency Frequency: 1x/Week Duration: 2 Months - Prognosis Prognosis: Good - Goals that are Established: Determination:: Goals will be added/modified as deemed necessary and appropriate. Therapy will be discontinued when results of re-evaluation indicate therapy is no longer needed or lack of progress has been documented. - Goal #1-5 Goal #1: Monica will participate in further evaluation of cognitive-linguistic functioning. Goal #2: Monica will independently utilize compensatory executive functioning strategies to improve impulse control, attention, and planning/organizing during structured and unstructured therapy activities Accuracy: 90% # Sessions: 3/4 consecutive Goal #3: Monica will independently complete functional medication administration tasks Accuracy: 90% # Sessions: 3/4 consecutive Goal #4: Monica will independently complete functional monetary/financial tasks Accuracy: 90% # Sessions: 3/4 consecutive Education - Patient has Indicated that the Following Identified Educational Needs: None The Patient has indicated that they have no educational or learning abilities that may effect their care.: Yes - Patient Instruction Patient Education: Treatment Plan, Goals Person Taught: Patient, Family
--- NOTE | 2018-07-18 10:56 | HP.PTREVAL_ITS ---
Lea Tierney, DITTO MACHINE OPERATOR-C, It has been my pleasure to treat HENRY DEGROOT over the last 19 visits for seizure, debility. Please see the progress note below for an update on the physical therapy plan of care! Subjective: Some days can't walk right or talk right adn other. Better than 3 weeks ago, walking better balance. Sleep is OK. Still wants to walk more normal at the fair. Using wh walker in morning but at home without it. Uses it outside of house all the time. Used to walk without it prior to this seizure. No steps. Objective/Function: Patient ambulates without AD safe and I on firm flat surface , as she fatigues, her L step length gets shorter but not dangerous and corrects with VC. Able to ascend steps with one palomares reciprocal but R is painful , descending only with left due to bone on bone pain. Needs cues to walk properly with the walking sticks. Unable to step up L without rail safely and needs AD for this or rail. Plan Plan: f/u three weeks for check balance and curbs with L and decide if needs further PT or D/C. Pt wants to try at home with HEP for now. Goals Goal 1:: Walk without AD I in and out of PT safe and I with normal gait pattern. Goal Time Frame: 4-6 Weeks Goal Progress: Goal Met Goal 2:: Tolerate FGA and score 22/30 Goal Time Frame: 4-6 Weeks Goal Progress: Progressing Goal 3:: exit chair without UE I Goal Time Frame: 4-6 Weeks Goal Progress: Goal Met Goal 4:: I approp HEP tominimize future deficits Goal Time Frame: 4-6 Weeks Goal Progress: sink ex Goal 5:: Conitnue maintain balance improvements without consistent PT Goal Time Frame: 2-4 Weeks Goal Progress: NEW GOAL Goal 6:: Up curb with L without UE Goal Time Frame: 2-4 Weeks Goal Progress: NEW GOAL Anticipated Interventions Patient/Client Instruction: Educate patient on: Condition, Plan of Care For the Purpose of:: To improve safety with gait Therapeutic Exercise to Include: Strength training, Flexibilty training, Gait and locomotor training For the Purpose of:: To increase ROM, To improve nutrient delivery to tissue, To improve ability of physical actions for home/community/work/leisure, To improve gait and locomotor functions, To improve safety with gait Please do not hesitate to contact me at [phone] by phone or Fax: if you have questions or concerns regarding this new plan of care! Sincerely, Thomas Daley, SURAJT, OC
--- NOTE | 2018-08-08 13:27 | HP.PTDCSUM_ITS ---
HP - PT D/C Summary It has been my pleasure to treat HENRY DEGROOT under orders from UVALDO Troncoso C, for the diagnosis of seizure, debility for a total of 20 visit(s). Discharge Date: 08/08/18 Please see the following information for a summary of their discharge status. - Subjective Subjective: I am doing fine. Wants to be on her own. Dtr cooks for her her. No steps at her place. No falls and using wh walker some times. Doesn't use it except to get out of bedroom in am. Using wh walker away from house. No pain. Dtr is worried about her lack of confidence without walker. Also concerned about eating properly. Doing counter exercises daily to two times per day. - Pain Tate KNee Pain Intensity (Out of 10): Unrated L UE Pain Intensity (Out of 10): 5 - Overall Improvement % Improvement: 90 - Objective Objective/Function: FGA+1 from last visit. Patient with much better L step length until she gets tired after steps today then ANOOP widens and L step length shorter. Able to ascend with R LE on steps and one rail today, still weak but improved. OVERALL APPEARS AND FEELS BACK TO BASELINE BEFORE MAY 07 ISSUE. - Goals Goal 1:: Walk without AD I in and out of PT safe and I with normal gait pattern. Goal Progress: Goal Met Goal 2:: Tolerate FGA and score 22/30 Goal Progress: Goal Met Goal 3:: exit chair without UE I Goal Progress: Goal Met Goal 4:: I approp HEP tominimize future deficits Goal Progress: Goal Met Goal 5:: Conitnue maintain balance improvements without consistent PT Goal Progress: Goal Met Goal 6:: Up curb with L without UE Goal Progress: Goal Met - Plan Plan: D/C - D/C Information If there are questions or concerns regarding this patient's physical therapy, please feel free to call me at [phone]. Thank you for the referral of this patient. Sincerely, Thomas Daley, DPT, OC
--- NOTE | 2018-08-22 11:24 | HP.SP.DC ---
ST Discharge Summary - Discharged: Discharge: Monica Esteban is discharged from outpatient speech-language therapy effective 08/22/2018. Monica participated in eight therapy sessions following her initial evaluation targeting executive functioning/processing deficits and functional skills secondary to recent seizures from a prior CVA. She is to be discharged at this time as she is near her baseline level of cognitive-linguistic functioning prior to recent seizures. Monica performs well with known, routine tasks and basic/concrete novel tasks, but struggles with mental flexibility and organization on novel high level/abstract tasks. Therefore, it is a continued recommendation that Monica be able to complete financial tasks with supervision/rechecking by a family member as needed. Monica is able to write her own checks with high degrees of accuracy and keep her own organization system with a family member overseeing for correctness and completion. Education was provided to Monica and her daughter on openness of communication and trial and error to find an organization system that works effectively to give Monica increased independence while making sure important information is not lost/completed incorrectly (minimal concerns with assistance as needed). However, strong recommendations for continued individual AND family counseling were provided due to Monica's verbalized levels of frustration and depression secondary to cognitive-linguistic functioning, living situation, and perceived loss of independence/value. Please reconsult as necessary.
--- NOTE | 2018-08-22 11:27 | HP.SP.DC_ITS ---
ST Discharge Summary - Discharged: Discharge: Monica Esteban is discharged from outpatient speech-language therapy effective 08/22/2018. Monica participated in eight therapy sessions following her initial evaluation targeting executive functioning/processing deficits and functional skills secondary to recent seizures from a prior CVA. She is to be discharged at this time as she is near her baseline level of cognitive- linguistic functioning prior to recent seizures. Monica performs well with known, routine tasks and basic/concrete novel tasks, but struggles with mental flexibility and organization on novel high level/abstract tasks. Therefore, it is a continued recommendation that Monica be able to complete financial tasks with supervision/rechecking by a family member as needed. Monica is able to write her own checks with high degrees of accuracy and keep her own organization system with a family member overseeing for correctness and completion. Education was provided to Monica and her daughter on openness of communication and trial and error to find an organization system that works effectively to give Monica in creased independence while making sure important information is not lost/completed incorrectly (minimal concerns with assistance as needed). However, strong recommendations for continued individual AND family counseling were provided due to Monica's verbalized levels of frustration and depression secondary to cognitive-linguistic functioning, living situation, and perceived loss of independence/value. Please reconsult as necessary.
== END 2018-08-18 19:00 | disposition home or self-care (01) ==
LOC: SP 09:00
PROVIDERS: Family Provider Family Medicine; PCP Family Medicine; Visit Provider Nurse Practitioner Acute Care
DX: I69.398 Other sequelae of cerebral infarction (principal); R53.81 Other malaise; R56.9 Unspecified convulsions; I69.328 Other speech and language deficits following cerebral infarction
CPT/HCPCS: 36415; 80177; 92507; 92523; 97110; 97116; 97162; 97165; 97166; 97530

== ENCOUNTER 2019-04-29 10:00 | Outpatient (RCR) | payer MEDICARE, SELFPAY ==
[2018-10-20 13:54] VITALS: BMI 27.8
--- NOTE | 2019-02-23 14:35 | HP.PTEVAL_ITS ---
Patient's Visit Information HENRY DEGROOT is a 78 year old F referred to Physical Therapy by HEATHER Henderson with a diagnosis of deconditioning and stroke that affected L side. Date of Evaluation: 02/23/19 Physical Therapist: ADIA Martinez - Visit Plan Frequency: 2x /Week Duration: 6 Weeks Plan: 2X/ week for 6 weeks for LE strength, gait training, dynamic balance ( WBOS tandem stance), balance with head turns, turning and changing directions w ith HEP - Subjective Findings: Pt reports that her L ankle is stiff. Last time she was here she was here after a seizure and the BOSU ball she thinks that it hurt her ankle and it has been stiff since then. She saw her Dr and he sent her to PT because of the pain down the L leg and weakness (legs feel like they want to give out). She had a stroke February 11, 2016 that affected her L side. She has been on the walker since seizure on May 07, 2018. Pt reports that he walking got worse this winter. She blames her achiness on cholesteral meds. She lives with her daughter. She lives on the main floor of the home. She has a ramp into the house. She uses the walker around the house except for the kitchen. She feels that she has had weakness of the L leg and thinks it has gottne worse over the winter. In Aug she fell on her R side ( she missed a step going from kitchen to the living room). - Pain L ankle and lower leg pain Pain Intensity (Out of 10): 0 Comment: 5/10 with walking - Objective Sit to stand: has to use her arms to get out of the chair. Gait: Walks with a front wheeled walker with decreased step length on the L LE. Pt is able to walk with a WBQC with verbal cues to increase L LE step length. 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 Pt has some increase dizziness when standing with turning her head X 4 directions. Pt has some sway when standing unsupported. LE MMT: Hip flex R 4+/4 and L hip flex 3-/5, Knee ext R 4/5 and L 4-/5, R knee flex 4/5 and L 4- /5. Pt struggles with heel and toe raises and needs UE support, Hip abd R 4/5 and L 4-/5. Pt is able to do 3/4 ROM bridge. Tight gastroc B. Pt has a fear of rolling too far off the edge of the mat table - Goals Goal 1:: I HEP Goal Time Frame: 4-6 Weeks Goal 2:: Be able to get out of the chair without the use of her UE's Goal Time Frame: 4-6 Weeks Goal 3:: Be able to go up and down a curb step (6 inch) with least assistance without LOB Goal Time Frame: 4-6 Weeks Goal 4:: Increase LE strength by 1/2 muscle grade ( at time of eval: LE MMT: Hip flex R 4+/4 and L hip flex 3-/5, Knee ext R 4/5 and L 4-/5, R knee flex 4/5 and L 4-/5. Pt struggles with heel and toe raises and needs UE support, Hip abd R 4/5 and L 4-/5. Pt is able to do 3/4 ROM bridge) Goal Time Frame: 4-6 Weeks Goal 5:: Be able to walk with least resticitive device with equal step length. Goal Time Frame: 4-6 Weeks - Rehabilitation Potential Rehabilitation Potential: Good - Anticipated Interventions Thank you for the opportunity to evaluate your patient. For Medicare and Medicare HMO plans, please review the plan of care and approve it. It will need to be FAXED BACK to us at [phone] for Medicare purposes. For Medicare only, by signing this I certify the plan of care. Please let me know if there are questions or concerns regarding this plan of care. Physician Signature: Date:
--- NOTE | 2019-03-25 12:17 | HP.PTREVAL_ITS ---
Mesha Dean, SUPPLIER DIVERSITY DIRECTOR, It has been my pleasure to treat HENRY DEGROOT over the last 9 visits for deconditioning and stroke that affected L side. Please see the progress note below for an update on the physical therapy plan of care! Subjective: Pt reports that she is sad due to afamily loss this week. Objective/Function: Sit to stand without the use of UE: Able X 3 attempts with verbal cues for nose over toes. 6 [address] curb step: Up and down 3 X with CGA to min A. Increase LE strength by 1/2 muscle grade ( at time of eval: LE MMT: Hip flex R 4+/4 and L hip flex 3-/5, Knee ext R 4/5 and L 4-/5, R knee flex 4/5 and L 4-/5. Pt struggles with heel and toe raises and needs UE support, Hip abd R 4/5 and L 4-/5. Pt is able to do 3/4 ROM bridge). Gait with equal step length: Pt needs verbal cues to increase step length on the L. Plan Plan: 2X/ week for 4 addotional weeks for LE strength, gait training, dynamic balance ( WBOS tandem stance), balance with head turns, turning and changing directions with HEP Goals Goal 1:: I HEP Goal Time Frame: 4-6 Weeks Goal Progress: Goal Met Goal 2:: Be able to get out of the chair without the use of her UE's Goal Time Frame: 4-6 Weeks Goal Progress: Goal Met Goal 3:: Be able to go up and down a curb step (6 inch) with least assistance without LOB Goal Time Frame: 4-6 Weeks Goal 4:: Increase LE strength by 1/2 muscle grade ( at time of eval: LE MMT: Hip flex R 4+/4 and L hip flex 3-/5, Knee ext R 4/5 and L 4-/5, R knee flex 4/5 and L 4-/5. Pt struggles with heel and toe raises and needs UE support, Hip abd R 4/5 and L 4-/5. Pt is able to do 3/4 ROM bridge) Goal Time Frame: 4-6 Weeks Goal 5:: Be able to walk with least resticitive device with equal step length. Goal Time Frame: 4-6 Weeks Goal Progress: Progressing Goal 6:: Pt to be able to go up and down the steps recip with 1 hand rail with SBA Goal Time Frame: 4-6 Weeks Anticipated Interventions Please do not hesitate to contact me at [phone] by phone or if you have questions or concerns regarding this new plan of care! Sincerely, Анна Urrutia, MPT
--- NOTE | 2019-04-29 12:48 | HP.PTDCSUM_ITS ---
HP - PT D/C Summary It has been my pleasure to treat HENRY DEGROOT under orders from HEATHER Henderson, for the diagnosis of deconditioning and stroke that affected L side for a total of 17 visit(s). Discharge Date: 04/29/19 Please see the following information for a summary of their discharge status. - Subjective Subjective: Pt reports that she does not feel better this round. She wants to go to Chiropractor and massage and see if that will help her. She feels that her balance is better. She does not feel that she can lift her R leg like she should. When discussing poc pt admited that she is still sad about losing , not driving, moving from her home, living with her kids, her kids having control of her money etc. Pt is on antidepressent and is seeing a cousler. - Pain L ankle and lower leg pain Pain Intensity (Out of 10): 7 R hip Pain Intensity (Out of 10): 7 R knee pain Pain Intensity (Out of 10): 0 - Overall Improvement % Improvement: 50 - Objective Objective/Function: LE MMT: R hip flex 4-/5 and L hip flex 3+/5. Gait: walks with a front wheeled walker with decreased step length on the L. If pt is verbally cued she does bring her L leg up to more of an equal step length. Pt is able to walk with GAMING SURVEILLANCE OBSERVER ( minimal) with more of an equal step length when verbally cued. Stairs: pt is able to go up the stairs recip with 2 hand rails with some difficulty ascending with the R LE and then descends the stairs with 2 hand rails going down with the R LE first. Sit to stands: able to sit to stand without UE support. At times she needs verbal cues to lean forward and to scoot forward in the chair before standing. curb steps: up and down with 1 therapist GAMING SURVEILLANCE OBSERVER without LOB. I feel at this point the pt has more ability then she does effort. She admits to not being motivated. She will discuss this with her counsler - Goals Goal 1:: I HEP Goal Progress: Goal Met Goal 2:: Be able to get out of the chair without the use of her UE's Goal Progress: Goal Met Goal 3:: Be able to go up and down a curb step (6 inch) with least assistance without LOB Goal 4:: Increase LE strength by 1/2 muscle grade ( at time of eval: LE MMT: Hip flex R 4+/4 and L hip flex 3-/5, Knee ext R 4/5 and L 4-/5, R knee flex 4/5 and L 4-/5. Pt struggles with heel and toe raises and needs UE support, Hip abd R 4/5 and L 4-/5. Pt is able to do 3/4 ROM bridge) Goal 5:: Be able to walk with least resticitive device with equal step length. Goal Progress: Progressing Goal 6:: Pt to be able to go up and down the steps recip with 1 hand rail with SBA Goal Progress: Progressing - Plan Plan: DC PT to HEP including sit to stands - D/C Information Discharge Comments: DC PT to HEP If there are questions or concerns regarding this patient's physical therapy, please feel free to call me at [phone]. Thank you for the referral of this patient. Sincerely, Анна Urrutia, MPT
== END 2019-04-29 19:00 | disposition home or self-care (01) ==
LOC: PT 10:00
PROVIDERS: Family Provider Family Medicine; PCP Family Medicine; Referring Provider Clinical Nurse Specialist Acute Care; Visit Provider Clinical Nurse Specialist Acute Care
DX: R53.81 Other malaise (principal); Z86.73 Personal history of transient ischemic attack (TIA), and cerebral infarction without residual deficits
CPT/HCPCS: 97110; 97116; 97161; 97530

== ENCOUNTER → 2019-06-09 08:31 | Outpatient (CLI) | payer MEDICARE, SELFPAY ==
[2019-06-09 09:36] LABS: AST(SGOT) 20 U/L (15-37); Alanine Aminotransfer ALT/SGPT 21 U/L (13-56); Albumin, Serum 3.2 g/dL (3.2-5.0); Alkaline Phosphatase 67 U/L (45-117); Bilirubin, Direct 0.13 mg/dL (0.00-0.30); Cholesterol 187 mg/dL (200); Globulin 3.7 g/dL (2.2-4.2); High Density Lipoprotein 77 mg/dL; Protein, Total 6.9 g/dL (6.4-8.2); Triglycerides 65 mg/dL; Very Low Density Lipoprotein 13 mg/dL (5-40)
== END ==
PROVIDERS: Family Provider Family Medicine; PCP Family Medicine; Referring Provider Internal Medicine Cardiovascular Disease; Visit Provider Internal Medicine Cardiovascular Disease
DX: E78.5 Hyperlipidemia, unspecified (principal)
CPT/HCPCS: 36415; 80061; 80076

== ENCOUNTER → 2019-12-02 08:58 | Outpatient (CLI) | payer MEDICARE, SELFPAY ==
[2019-07-13 14:15] VITALS: BMI 31.1
[2019-12-02 11:01] LABS: AST(SGOT) 16 U/L (15-37); Alanine Aminotransfer ALT/SGPT 22 U/L (13-56); Alkaline Phosphatase 72 U/L (45-117); Bilirubin, Direct 0.16 mg/dL (0.00-0.30); Cholesterol 156 mg/dL (200); Globulin 3.8 g/dL (2.2-4.2); High Density Lipoprotein 73 mg/dL; Protein, Total 6.8 g/dL (6.4-8.2); Triglycerides 60 mg/dL; Very Low Density Lipoprotein 12 mg/dL (5-40)
== END ==
LOC: LAB 09:01
PROVIDERS: PCP Family Medicine; Referring Provider Nurse Practitioner Family; Visit Provider Nurse Practitioner Family
DX: E78.00 Pure hypercholesterolemia, unspecified (principal)
CPT/HCPCS: 36415; 80061; 80076

== ENCOUNTER → 2019-12-24 08:54 | Outpatient (CLI) | payer MEDICARE, SELFPAY ==
[2019-12-04 10:16] VITALS: BMI 30.9
--- NOTE | 2019-12-24 08:54 | ECHOD_ITS ---
Reason For Study: DYSPNEA Procedure This was a 2D Doppler, Color Flow transthoracic echocardiogram. Myocardial strain analysis was performed in this exam to aid in the assessment of cardiac function. Exam performed in department. Left Ventricle Normal size and thickness. The estimated ejection fraction is 65 %. The global longitudinal strain = -20.5 % (normal). Stage 2 diastolic dysfunction. No regional wall motion abnormalities noted. Right Ventricle Normal size and thickness. Normal systolic function. Atria Normal left atrium. Normal right atrium. Normal atrial septum. Mitral Valve Mild diffuse mitral valve thickening. Mild mitral annular calcification extending into the posterior leaflet. Trivial mitral valve insufficiency. Tricuspid Valve Normal tricuspid valve. Trivial tricuspid valve insufficiency. Right ventricular systolic pressure estimated to be 29 mmHg. Aortic Valve Normal aortic valve. Trisinus/trileaflet aortic valve. Pulmonic Valve Normal pulmonic valve. Great Vessels Normal aortic root. Normal arch. Normal inferior vena cava. Inferior vena cava collapse with sniff. Pericardium/Pleural No pericardial effusion. MMode/2D Measurements & Calculations LVIDd: 4.6 cm IVSd: 0.68 cm Ao root diam: 2.9 cm LVIDs: 3.3 cm LVPWd: 0.69 cm RVDd: 3.2 cm FS: 28.7 % LAV(MOD-bp): 47.8 ml LA A4 area: 17.5 cm2 LA dimension(2D): 3.8 cm LAV(MOD-bp) Indexed: 26.1 ml/m2 LAV(MOD-sp2): 48.5 ml LAV(MOD-sp4): 45.1 ml RA A4 area: 12.4 cm2 Time Measurements MV dec time: 0.17 sec Doppler Measurements & Calculations MV E max manav: 88.8 cm/sec Lat Peak E' Manav: 9.7 cm/sec Med Peak E' Manav: 7.2 cm/sec MV A max manav: 87.6 cm/sec E/E' lat: 9.1 E/E' med: 12.4 MV E/A: 1.0 MV V2 max: 88.8 cm/sec Ao V2 max: 117.5 cm/sec AI max manav: 153.4 cm/sec MV max P.2 mmHg Ao max P.5 mmHg AI max P.4 mmHg MV V2 mean: 63.6 cm/sec AI dec slope: 243.7 cm/sec2 MV mean P.7 mmHg AI P1/2t: 184.3 msec MV V2 VTI: 31.0 cm LV V1 max: 87.9 cm/sec PA V2 max: 86.5 cm/sec PI end-d manav: 73.4 cm/sec LV V1 max P.1 mmHg TR max manav: 238.9 cm/sec MV P1/2t-pr_phl: 86.4 msec TR max P.9 mmHg Interpretation Summary The estimated ejection fraction is 65 %. The global longitudinal strain = -20.5 % (normal). Stage 2 diastolic dysfunction. Trivial mitral valve insufficiency. Trivial tricuspid valve insufficiency. Right ventricular systolic pressure estimated to be 29 mmHg. Compared to echo report dated 02/17/2016, LV function is improved from 50% to 65%. Ordering Physician: Augusto Carter Referring Physician: ИВАН RAMON Performed By: Melia Rowell, RDCS, RVT
== END ==
PROVIDERS: PCP Family Medicine; Referring Provider Internal Medicine Cardiovascular Disease; Visit Provider Internal Medicine Cardiovascular Disease
DX: I48.0 Paroxysmal atrial fibrillation (principal)
CPT/HCPCS: 93306

== ENCOUNTER → 2019-12-31 09:18 | Outpatient (CLI) | payer MEDICARE, SELFPAY ==
[2019-12-04 10:16] VITALS: BMI 30.9
--- NOTE | 2019-12-31 09:19 | STEWCON_ITS ---
Reason For Study: DYSPNEA/SOB Stress Results Protocol: Dobutatmine Stress Echo Maximum Predicted HR: 141 bpm Target HR: 120 bpm % Maximum Predicted HR: 91 % DurationHeart Rate Stage (mm:ss) (bpm) BP Dose Comment BASELINE 75 128/61 DILUTED DEFINITY 6 CC USED DSE- 10 MCG 3:15 68 141/7510.00NO SX DSE- 20 MCG 3:07 112 131/7020.00NO SX DSE- 30 MCG 4:30 129 113/5030.00SHAKEY, NO CP OR SOB RECOVERY 86 106/68 STATES SHE STILL FEELS JITTERY, ATE CRACKERS AND DRANK OJ Stress Duration: 10:52 mm:ss Maximum Stress HR: 129 bpm Baseline Echocardiogram Findings The estimated ejection fraction is 65 %. Stress Echo Wall motion Data Resting WM Intermediate WM Stress WM Resting Wall Motion Wall Motion Stress No regional wall motion No regional wall motion abnormalities noted. abnormalities noted. EKG Data The baseline ECG displays normal sinus rhythm. The patient was titrated from 10 mcg to a maximun of 30 mcg of dobutamine during the stress. The maximum heart rate attained was 129 beats per minute. This was 117% of maximum predicted heart rate. During dobutamine infusion, there were no ST or T wave changes noted to suggest ischemia. Interpretation Summary The estimated ejection fraction is 65 %. Normal, adequate, dobutamine echocardiogram. Negative for ischemia by EKG and echocardiographic criteria. No anginal symptoms noted. Rare PACs and PVCs noted. Test terminated due to the attainment of target heart rate. Appropriate blood pressure response to dobutamine. Final LVEF is 75%. Decrease sensitivity due to poor echo windows requiring Definity agent. Patient tolerated procedure well. No complications. The study was technically difficult. Contrast injection was performed. Ordering Physician: Augusto Carter Referring Physician: Augusto Carter Performed By: Melia Rowell, KEYSHA, RVT
== END ==
PROVIDERS: PCP Family Medicine; Referring Provider Internal Medicine Cardiovascular Disease; Visit Provider Internal Medicine Cardiovascular Disease
DX: R06.02 Shortness of breath (principal); I48.0 Paroxysmal atrial fibrillation
CPT/HCPCS: 93017; 93350; J7040; Q9957; A4216; C8928

== ENCOUNTER → 2020-07-08 08:09 | Outpatient (CLI) | payer MEDICARE, SELFPAY ==
[2019-12-04 10:16] VITALS: BMI 30.9
[2020-07-08 10:04] LABS: AST(SGOT) 21 U/L (15-37); Alanine Aminotransfer ALT/SGPT 22 U/L (13-56); Alkaline Phosphatase 69 U/L (45-117); Bilirubin, Direct 0.21 mg/dL (0.00-0.30); Cholesterol 139 mg/dL (200); Globulin 3.8 g/dL (2.2-4.2); High Density Lipoprotein 70 mg/dL; Protein, Total 6.8 g/dL (6.4-8.2); Triglycerides 50 mg/dL; Very Low Density Lipoprotein 10 mg/dL (5-40)
== END ==
PROVIDERS: PCP Family Medicine; Referring Provider Nurse Practitioner Family; Visit Provider Nurse Practitioner Family
DX: E78.00 Pure hypercholesterolemia, unspecified (principal)
CPT/HCPCS: 36415; 80061; 80076

== ENCOUNTER → 2021-01-05 08:10 | Outpatient (CLI) | payer MEDICARE, SELFPAY ==
[2020-07-14 09:24] VITALS: BMI 31.3
[2021-01-05 08:54] LABS: AST(SGOT) 20 U/L (15-37); Alanine Aminotransfer ALT/SGPT 19 U/L (13-56); Alkaline Phosphatase 72 U/L (45-117); Bilirubin, Direct 0.17 mg/dL (0.00-0.30); Cholesterol 147 mg/dL (200); Globulin 3.8 g/dL (2.2-4.2); High Density Lipoprotein 73 mg/dL; Protein, Total 6.8 g/dL (6.4-8.2); Triglycerides 79 mg/dL; Very Low Density Lipoprotein 16 mg/dL (5-40)
== END ==
PROVIDERS: PCP Family Medicine; Referring Provider Nurse Practitioner Family; Visit Provider Nurse Practitioner Family
DX: E78.00 Pure hypercholesterolemia, unspecified (principal)
CPT/HCPCS: 36415; 80061; 80076

== ENCOUNTER 2021-01-10 07:14 | Outpatient (RCR) | payer MEDICARE, SELFPAY ==
[2020-07-14 09:24] VITALS: BMI 31.3
[2021-01-10] MEDS: COVID-19 VACC, MRNA(PFIZER)/PF 30 MCG/0.3 ML SYRINGE IM (08:11)
[2021-01-31] MEDS: COVID-19 VACC, MRNA(PFIZER)/PF 30 MCG/0.3 ML SYRINGE IM (08:02)
== END 2021-04-11 23:59 ==
LOC: IMMUN 07:14
PROVIDERS: PCP Family Medicine; Referring Provider Family Medicine; Visit Provider Family Medicine
DX: Z23 Encounter for immunization (principal)
CPT/HCPCS: 0001A; 0002A; 91300

== ENCOUNTER 2021-09-08 18:35 | Emergency (ER) | payer MEDICARE, SELFPAY ==
[2021-09-08 18:40] VITALS: BP 86/50; PULSE 104; RESP 18; TEMP 35.5; O2SAT 96; BMI 27.8
[2021-09-08 18:45] VITALS: BP 82/64; PULSE 103; RESP 18; O2SAT 97
--- NOTE | 2021-09-08 18:47 | EKG12_ITS ---
Test Reason : NAUSEA Blood Pressure : / mmHG Vent. Rate : 126 BPM Atrial Rate : 100 BPM P-R Int : 000 ms QRS Dur : 070 ms QT Int : 330 ms P-R-T Axes : 000 036 -59 degrees QTc Int : 477 ms Atrial fibrillation Low voltage QRS Nonspecific ST and T wave abnormality Abnormal ECG Confirmed by ANDREW PRAJAPATI, MARGARET ([id number]), senior technical editor CAS CONTRERAS ([id number]) on 09/11/2021 10:49:03 AM Referred By: CODY Confirmed By:MARGARET MORALES MD
--- NOTE | 2021-09-08 18:48 | EDS_ITS ---
HPI History of Present Illness Chief Complaint: Nausea/Vomiting/Diarrhea Detail of Chief Complaint: Also complains of lightheadedness, thirst and dry mouth Informant: patient and family Onset/Context/Timing Onset: Yesterday Context: Sudden Onset Timing: Intermittent Quality: Nausea, vomiting and diarrhea with lightheadedness and thirst Location: GI Current Severity: Mild Maximum Severity: Severe Worsened by: Nothing Relieved by: Nothing Associated Symptoms Associated Symptoms: Muscle aches Narrative Narrative: Patient is an elderly woman with history of CVA, seizure disorder, right breast cancer, paroxysmal atrial fibrillation and gammopathy who presents with nausea, vomiting diarrhea that started at midnight. She reports 5 episodes of emesis without blood or coffee grounds and 10 loose stools. She not check color or if there is blood. She received her booster shot the other day. She denies fever, chills night sweats. She denies ocular, visual or auditory symptoms. She denies cardiac or respiratory symptoms. She reports decreased urine output. She denies dysuria, frequency or hematuria. She does complain of generalized weakness as well. She states she has trouble standing up. Prior similar symptoms: No Recent Illness/Hospitalization: [facility] Medical History (Updated 09/08/21 @ 23:[address] Micky Fuchs MD) Acute right MCA stroke (02/08/16) 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 Cerebrovascular disease Gammopathy Left hemiparesis Macular degeneration Obesity (BMI 30.0-34.9) Paroxysmal atrial fibrillation Seizure Snoring Home Medications vit C,O-Fe-ukbfc-lutein-zeaxan 1 ea PO BID 05/07/18 [History Last Taken Unknown] duloxetine 30 mg capsule,delayed release 30 mg PO DAILY 10/20/18 [History Last Taken Unknown] levetiracetam 500 mg tablet 500 mg PO .COMPLEX tab 10/20/18 [History Last Taken Unknown] [place] Q Plus 2 tab PO DAILY 07/13/19 [History Last Taken Unknown] apixaban 5 mg tablet 5 mg PO BID #180 tab 12/04/19 [Rx Last Taken Unknown] Joint AdvantageGold PO DAILY 01/12/21 [History Last Taken Unknown] acetaminophen 325 mg tablet 325 mg PO Q6H PRN PRN tab 01/12/21 [History Last Taken Unknown] pravastatin 10 mg tablet 10 mg PO .QODAY tab 01/12/21 [History Last Taken Unknown] metoprolol succinate 25 mg tablet,extended release 24 hr 12.5 mg PO DAILY #45 tab 05/01/21 [Rx Last Taken Unknown] Allergy/AdvReac Type Severity Reaction Status Date / Time No Known Allergies Allergy Verified 01/12/21 13:59 Family History Father CAD (coronary artery disease) Aunt Breast cancer Sister Uterine cancer Surgical History History of bilateral cataract extraction History of colonoscopy History of total mastectomy of right breast S/P laser cataract surgery Social History (Updated 09/08/21 @ 18:[address] Micky Fuchs MD) household members: family Smoking Status: Never smoker substance use type: does not use ROS ROS ED Constitutional Constitutional ED: Denies chills, fever(s), subjective, sweats or weight loss Eyes Eyes: Denies blurry vision, change in vision or diplopia ENT ENT ED: Denies ear pain, rhinorrhea or sore throat Cardiovascular Cardiovascular: Denies chest pain, orthopnea, palpitations, paroxysmal nocturnal dyspnea or racing heartbeat Respiratory/Chest Respiratory/Chest: Denies cough, dyspnea, dyspnea on exertion, orthopnea or paroxysmal nocturnal dyspnea Gastrointestinal Gastrointestinal: Reports diarrhea, nausea and vomiting; Denies abdominal pain or melena Genitourinary Genitourinary ED: Denies dysuria, hematuria or urinary frequency Musculoskeletal Musculoskeletal: Denies arthralgias, back pain, myalgias or neck pain Integumentary Denies rash Neurologic Neurologic: Reports headache(s) and weakness; Denies paresthesias Endocrine Endocrinology: Denies polydipsia, polyphagia or polyuria EXAM Physical Exam Const Vital Signs: 09/08/21 18:40 09/08/21 18:45 09/08/21 19:41 Temperature 96 F L Temperature Source Temporal Pulse Rate 104 H 103 H 127 H Respiratory Rate 18 18 18 Blood Pressure 86/50 L 82/64 L 108/62 Blood Pressure Mean 62 70 77 Pulse Ox 96 97 99 Oxygen Delivery Method Room Air Room Air Room Air Positive well nourished and well developed General Appearance ED: well developed and NAD; Negative for cyanotic, diaphoretic or pallor HEENT HEENT Narrative: Head is atraumatic normocephalic. Ears are normal. Nares patent. Mucosa is dry. Eyes PERRL and EOMs intact bilaterally General Eye ED: Negative for pale conjunctiva or scleral icterus Neck no lymphadenopathy, supple and no JVD Resp normal respiratory effort and clear to auscultation bilaterally Cardio no murmurs Rate: tachycardic Rhythm: abnormal rhythm GI normal to inspection, nondistended, normoactive bowel sounds, non-tender and non-distended Palpation: soft Back/Spine no CVA tenderness Cervical Spine: Negative for cervical spine tenderness Thoracic Spine / Upper Back: Negative for thoracic spinal tenderness or paraspinal muscle tenderness Extremity normal to inspection General Extremety ED: Negative for tenderness Neuro oriented x3, CN's II-XII intact bilaterally and no sensory deficits noted Neuro Narrative: There is no clonus or Babinski sign. Sensorium / Orientation: alert Psych mental status grossly normal Skin no rashes or lesions noted and no wounds General Skin Exam: Negative for jaundice or pallor MDM MDM MDM Narrative Medical decision making narrative: History and physical patient hypotension is most likely due to hypovolemia. Basic metabolic panel was obtained to assess renal function, anion gap and potassium. CBC to assess for anemia. She received 4 mg of Zofran for her nausea. She states has not had a loose stool since 5:00. This may be an adverse reaction to the booster shot she received for COVID-19. Patient responded to the fluid bolus. She then became hypotensive again. Heart rate is now 1 40-1 50. We will treat the A. fib RVR with 10 mg of Cardizem IV push. This may be contributing to her hypotension. She is hypovolemic. Patient was reassessed at 2300. Heart rate is 100. She is in A. fib. Blood pressure is 118/64 which is her baseline. Patient feels better. She be discharged home. Lab Data Attestation: I reviewed the patient's lab results. Lab results narrative: Hemoglobin is higher than normal and indicates hemoconcentration. BUN to creatinine ratio is greater than 20-1. Glucose is 171. Labs: Laboratory Results - last 24 hr 09/08/21 09/08/21 18:58 18:58 WBC 14.8 H RBC 4.36 Hgb 14.0 Hct 42.4 MCV 97.2 MCH 32.1 H MCHC 33.0 RDW Std Deviation 43.3 RDW Coeff of Rich 12.0 Plt Count 295 MPV 11.8 Immature Gran % (Auto) 0.300 Neut % (Auto) 65.7 Lymph % (Auto) 24.8 [place] % (Auto) 8.9 Eos % (Auto) 0.2 Baso % (Auto) 0.1 Absolute Neuts (auto) 9.7 H Absolute Lymphs (auto) 3.67 Nucleated RBC % 0 Sodium 139 Potassium 3.3 L Chloride 105 Carbon Dioxide 24.0 Anion Gap 10 BUN 15 Creatinine 0.75 Estim Creat Clear Calc 36.50 Est GFR (MDRD) Af Amer 96 Est GFR (MDRD) Non-Af 79 BUN/Creatinine Ratio 20.1 H Glucose 171 H Calcium 8.7 EKG Initial EKG: Attestation: I personally reviewed and interpreted this EKG as follows: Interpretation: Atrial Fibrillation (Ventricular rate is 123. QS duration 70 ms. QT duration 3 and 30 ms. [place] is normal. There is evidence of low voltage. There is also decreased anterior force. There is artifact which the computer is reading inferior ischemia.) Discharge Plan Triage Chief Complaint: Nausea/Vomiting/Diarrhea ED Provider: Micky Fuchs Dx/Rx/DC Orders Clinical Impression: Hypotension due to hypovolemia, Nausea vomiting and diarrhea, Chronic atrial fibrillation with rapid ventricular response Instructions: ED AFIB, ED Dehydration (Adult), ED Diet for Vomiting or ... Prescriptions: No Action levetiracetam 500 mg tablet 500 mg PO .COMPLEX RF: 0 duloxetine [Cymbalta] 30 mg capsule,delayed release(DR/EC) 30 mg PO DAILY RF: 0 apixaban 5 mg tablet 5 mg PO BID Qty: 180 RF: 3 acetaminophen 325 mg tablet 325 mg PO Q6H PRN PRN (Reason: Mild Pain (0-3/10)/Headache) RF: 0 Joint AdvantageGold PO DAILY RF: 0 pravastatin 10 mg tablet 10 mg PO .QODAY RF: [address] [place] Q Plus 2 tab PO DAILY RF: 0 vit C,Y-Vs-hftfx-lutein-zeaxan 1 EACH capsule 1 ea PO BID RF: 0 metoprolol succinate 25 mg tablet extended release 24 hr 12.5 mg PO DAILY Qty: 45 RF: 3 Primary Care Provider: Juju Lopez Referrals: Juju Lopez DO [Primary Care Provider] - 3-5 Days if not improving Disposition Disposition: Home, Self Care
[2021-09-08] MEDS: 0.9% Normal Saline 1,000 ML 1000 ML IV ×2 (18:56→22:31)
[2021-09-08] MEDS: Ondansetron 4 MG/2 ML Vial IV (18:58)
[2021-09-08 19:15] LABS: Absolute Lymphocyte Count 3.67 X10^3/uL (0.83-4.51); Absolute Neutrophil Count 9.7 X10^3/uL (2.0-7.7); Basophil# 0.02 X10^3/uL; Basophil% 0.1 % (0-1); Eosinophil# 0.03 X10^3/uL; Eosinophils% 0.2 % (0-5); Hematocrit 42.4 % (37-47); Lymphocyte # 3.67 X10^3/ul (0.83-4.51); Lymphocyte % 24.8 % (19-41); Mean Corpuscular Hgb 32.1 pg (27.0-32.0); Mean Corpuscular Volume 97.2 fL (81-99); Mean Platelet Vol. 11.8 fl (6.2-12.0); Monocyte# 1.31 X10^3/uL; Monocyte% 8.9 % (0-10); NRBC Flagged by Analyzer 0 % (0-5); Neutrophil # 9.69 X10^3/uL (2.7-7.7); Neutrophil % 65.7 % (47-70); Platelet Count 295 K/mm3 (150-450); RBC Distribution Width SD 43.3 fl (35.1-43.9); Red Blood Count 4.36 M/mm3 (4.2-5.4); White Blood Count 14.8 K/mm3 (4.4-11.0)
[2021-09-08 19:30] LABS: Anion Gap 10 (5-15); BUN 15 mg/dL (7-18); BUN/Creat Ratio 20.1 RATIO (10-20); Calcium,Total 8.7 mg/dL (8.5-10.1); Chloride 105 mmol/L (98-107); Creatinine, Serum 0.75 mg/dL (0.55-1.02); EST Glomerular Filtration Rate 79 mL/min (>60); Est Glom Filt Rate - Afr Amer 96 mL/min (>60); Glucose 171 mg/dL (74-106); Potassium 3.3 mmol/L (3.5-5.1); Sodium Level 139 mmol/L (136-145)
[2021-09-08 19:41] VITALS: BP 108/62; PULSE 127; RESP 18; O2SAT 99
[2021-09-08] MEDS: Potassium Chloride Oral Soln 20 MEQ/15 ML UDC 40 MEQ PO (22:08)
[2021-09-08 23:43] VITALS: BP 114/53; PULSE 87; RESP 16; O2SAT 100
== END 2021-09-08 23:52 | disposition home or self-care (01) ==
PROVIDERS: Emergency Provider Emergency Medicine; PCP Family Medicine
DX: I95.89 Other hypotension (principal); E86.1 Hypovolemia; I48.20 Chronic atrial fibrillation, unspecified; R11.2 Nausea with vomiting, unspecified; R19.7 Diarrhea, unspecified; G40.909 Epilepsy, unspecified, not intractable, without status epilepticus; E66.9 Obesity, unspecified; Z68.30 Body mass index [BMI] 30.0-30.9, adult; Z79.01 Long term (current) use of anticoagulants; Z79.899 Other long term (current) drug therapy; Z86.73 Personal history of transient ischemic attack (TIA), and cerebral infarction without residual deficits
CPT/HCPCS: 80048; 85025; 93005; 96361; 96374; 99285; J7030; A4216; J2405

== ENCOUNTER → 2021-10-06 08:58 | Outpatient (CLI) | payer MEDICARE, SELFPAY ==
[2021-10-06 10:35] LABS: AST(SGOT) 23 U/L (15-37); Alanine Aminotransfer ALT/SGPT 19 U/L (13-56); Alkaline Phosphatase 76 U/L (45-117); Bilirubin, Direct 0.14 mg/dL (0.00-0.30); Cholesterol 173 mg/dL (200); Globulin 4.2 g/dL (2.2-4.2); High Density Lipoprotein 81 mg/dL; Protein, Total 7.2 g/dL (6.4-8.2); Triglycerides 57 mg/dL; Very Low Density Lipoprotein 11 mg/dL (5-40)
== END ==
PROVIDERS: PCP Family Medicine; Visit Provider Nurse Practitioner Family
DX: E78.00 Pure hypercholesterolemia, unspecified (principal); E66.9 Obesity, unspecified
CPT/HCPCS: 36415; 80061; 80076

== ENCOUNTER 2023-11-29 10:55 | Emergency (ER) | payer MEDICARE, SELFPAY ==
[2023-11-29] VITALS (7 sets, daily range): BP systolic 104–131; BP diastolic 44–92; PULSE 77–120; RESP 16–24; TEMP 36.2–36.6; O2SAT 96–100; BMI 30.7
--- NOTE | 2023-11-29 11:44 | EDS_ITS ---
HPI History of Present Illness Chief Complaint: General Illness Informant: patient Onset/Context/Timing Onset: Today Context: Sudden Onset Timing: Continuous Quality: Weakness Location: Generalized Worsened by: Nothing Relieved by: Nothing Narrative Narrative: Patient presents with weakness that began today. Patient states she got up this morning and went to the bathroom. Patient states she was walking from the bathroom to her kitchen when she felt weak. Patient states she sat down. Patient states she did not pass out. Patient states she felt like she was having some shortness of breath. Patient denies any chest pain or palpitations. Patient states nothing makes it better and nothing makes it worse. Patient admits to some recent fevers and chills. Patient also admits to some sweats. Patient states she has a history of paroxysmal atrial fibrillation. EMS reports patient was in atrial fibrillation on their arrival. [facility] Medical History (Updated 11/29/23 @ 16:[address] 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 Cerebrovascular disease Gammopathy Left hemiparesis Macular degeneration Obesity (BMI 30.0-34.9) Paroxysmal atrial fibrillation Seizure Snoring Home Medications vit C 250 mg-vit E 90 mg-zinc 40 mg-copper 1 [id number] capsule 1 ea PO BID eye vitamin 05/07/18 [History Last Taken Unknown] levetiracetam 500 mg tablet 500 mg PO .COMPLEX 10/20/18 [History Last Taken Unknown] [place] Q Plus 2 tab PO DAILY 07/13/19 [History Last Taken Unknown] apixaban 5 mg tablet 5 mg PO BID blood thinner #180 tabs 12/04/19 [Rx Last Taken Unknown] Joint AdvantageGold PO DAILY 01/12/21 [History Last Taken Unknown] acetaminophen 325 mg tablet 325 mg PO Q6H PRN PRN Mild Pain (0-3/10)/Headache 01/12/21 [History Last Taken Unknown] pravastatin 10 mg tablet 10 mg PO .COMPLEX 01/12/21 [History Last Taken Unknown] calcium carb 133 mg-vitD3 133 unit-mag amino acid chelate 67mg capsule (Coral Calcium) 1 cap PO DAILY 02/08/22 [History Last Taken Unknown] cholecalciferol (vitamin D3) 25 mcg (1,000 unit) chewable tablet 25 mcg PO DAILY 04/07/22 [History Last Taken Unknown] cyanocobalamin (vitamin B-12) 1,000 mcg tablet 1,000 mcg PO DAILY 02/08/22 [History Last Taken Unknown] duloxetine 30 mg capsule,delayed release (Cymbalta) 30 mg PO BID 02/08/22 [History Last Taken Unknown] turmeric 400 mg capsule 400 mg PO DAILY 02/08/22 [History Last Taken Unknown] denosumab 60 mg/mL subcutaneous syringe (Prolia) 60 mg subcut [id number] 05/02/23 [History Last Taken Unknown] metoprolol succinate 25 mg tablet,extended release 24 hr 12.5 mg (1/2 x 25 mg) PO DAILY blood pressure #45 tabs 05/02/23 [Rx Last Taken Unknown] Allergy/AdvReac Type Severity Reaction Status Date / Time No Known Allergies Allergy Verified 11/29/23 10:56 Family History (Reviewed 05/02/23 @ 14:10 by Tai Krishna SENIOR PROJECT ENGINEER, SENIOR PROJECT ENGINEER-C) Father CAD (coronary artery disease) Aunt Breast cancer Sister Uterine cancer Surgical History History of bilateral cataract extraction History of colonoscopy History of total mastectomy of right breast S/P laser cataract surgery Social History household members: family Smoking Status: Never smoker substance use type: does not use ROS ROS ED Constitutional Constitutional ED: Reports chills, fever(s), subjective and sweats Eyes Eyes: Denies blurry vision or change in vision ENT ENT ED: Reports rhinorrhea; Denies sore throat Cardiovascular Cardiovascular: Denies chest pain or palpitations Respiratory/Chest Respiratory/Chest: Reports dyspnea; Denies cough Gastrointestinal Gastrointestinal: Reports nausea and vomiting Genitourinary Genitourinary ED: Denies dysuria or hematuria Musculoskeletal Musculoskeletal: Reports back pain; Denies neck pain Integumentary Denies abscess or rash Neurologic Neurologic: Denies headache(s) or weakness Allergic/Immunologic Allergic/Immunologic ED: Denies mouth swelling or urticaria EXAM Physical Exam Const Vital Signs: 11/29/23 10:56 11/29/23 11:10 11/29/23 11:14 Temperature 97.1 F L 97.5 F L Temperature Source Temporal Oral Pulse Rate 96 120 H Respiratory Rate 16 17 Respiratory Effort Normal Non-Labored Respiratory Pattern Normal Blood Pressure 118/72 131/92 H Blood Pressure Mean 87 105 Pulse Ox 98 97 Oxygen Delivery Method Room Air Room Air 11/29/23 13:23 11/29/23 14:00 11/29/23 15:00 Temperature 98 F 97.8 F 98 F Temperature Source Oral Oral Oral Pulse Rate 91 77 84 Respiratory Rate 17 24 H 16 Respiratory Effort Respiratory Pattern Blood Pressure 109/44 L 104/60 110/72 Blood Pressure Mean 65 74 84 Pulse Ox 98 100 100 Oxygen Delivery Method Room Air Room Air Room Air Positive well nourished and well developed General Appearance ED: well developed and NAD HEENT Reports moist mucous membranes Neck supple and no JVD Chest Wall inspection of chest normal and palpation of chest normal Resp normal respiratory effort and clear to auscultation bilaterally Cardio Rate: tachycardic Rhythm: abnormal rhythm irregularly irregular GI non-tender and non-distended Palpation: soft Extremity normal to inspection General Extremety ED: Negative for edema or tenderness General Extremity: Negative for edema Neuro oriented x3, CN's II-XII intact bilaterally and no sensory deficits noted Sensorium / Orientation: alert Motor Exam: strength 5/5 throughout Psych mental status grossly normal MDM MDM MDM Narrative Medical decision making narrative: Differential diagnosis includes cardiac dysrhythmia, cardiac ischemia, pneumonia, viral illness, congestive heart failure, and gastroenteritis. EKG will be obtained to assess for cardiac dysrhythmia and cardiac ischemia. Chest x-ray will be obtained to assess for pneumonia and congestive heart failure. CBC will be obtained to assess for leukocytosis and anemia. Basic metabolic profile will be obtained to assess for electrolyte abnormality and renal function. High-sensitivity troponin will be obtained to assess for cardiac ischemia. 2-hour repeat high-sensitivity troponin will be obtained to assess for ongoing cardiac ischemia. Lab Data Attestation: I reviewed the patient's lab results. Lab results narrative: CBC was reviewed. There is a mild leukocytosis of 14.5. The remainder was within normal limits. Basic metabolic profile was reviewed and was essentially within normal limits. High-sensitivity troponin was reviewed and was normal at 15. 2-hour repeat high-sensitivity troponin was reviewed and was normal at 14. COVID-19 PCR was reviewed and was negative. Influenza PCR was reviewed and was negative for influenza A and influenza B. RSV PCR was reviewed and was negative. Labs: Laboratory Results - last 24 hr 11/29/23 11/29/23 12:00 14:28 WBC 14.5 H RBC 4.63 Hgb 14.8 Hct 46.2 MCV 99.8 H MCH 32.0 MCHC 32.0 RDW Std Deviation 44.4 H RDW Coeff of Rich 12.2 Plt Count 233 MPV 11.5 Immature Gran % (Auto) 0.400 Neut % (Auto) 84.9 H Lymph % (Auto) 8.4 L Shelby % (Auto) 5.9 Eos % (Auto) 0.3 Baso % (Auto) 0.1 Absolute Neuts (auto) 12.3 H Absolute Lymphs (auto) 1.22 Nucleated RBC % 0 Sodium 140 Potassium 3.8 Chloride 110 H Carbon Dioxide 26.0 Anion Gap 4 L BUN 20 H Creatinine 0.78 Estim Creat Clear Calc 52.86 Est GFR (MDRD) Af Amer 90 Est GFR (MDRD) Non-Af 74 BUN/Creatinine Ratio 25.5 H Glucose 140 H Calcium 8.8 Troponin I High Sens 15 14 Radiography Diagnostic Testing: Clinical Impression(s) from Imaging Studies Chest X-Ray 11/29/23 12:20 IMPRESSION: Elevation of the right hemidiaphragm. No acute abnormality is seen. Electronically Signed: Jorge Nino MD at 12:48 EST , PA and lateral chest x-ray was obtained. There are 2 views. On my independent interpretation, lung ervin are clear. There is elevation of the right hemidiaphragm. There is normal cardiac silhouette. Bony thorax is normal. There is no acute process noted. Radiologist also interpreted the x-ray and agrees. EKG Initial EKG: Attestation: I personally reviewed and interpreted this EKG as follows: Interpretation: No Acute Injury Pattern and Atrial Fibrillation (119) Comments: EKG was obtained. On my independent interpretation, shows atrial fibrillation with a rate of 119. QRS interval was normal at 80 ms. QTc interval was normal at 458 ms. Friend was normal. There are no acute ST or T wave changes noted. Prior EKG tracings: available for review Prior: Unchanged (09/08/2021) Follow-up EKG: Attestation: I personally reviewed and interpreted this EKG as follows: Interpretation: Sinus Rhythm (82) and No Acute Injury Pattern Comments: EKG was obtained. On my independent interpretation, it showed a normal sinus rhythm with a rate of 82. VA interval, QRS interval, and QTc intervals were all normal. Friend was normal. There are no acute ST or T wave changes. Prior EKG tracings: available for review Prior: Changed (Compared to previous EKG, patient now is in a normal sinus rhythm. There are no acute ST or T wave changes from previous EKG.) Treatment and Re-Evaluation :: Patient was given a dose of Cardizem here. Patient converted to a normal sinus rhythm here in the emergency department. Patient was feeling better on reevaluation. Patient will be ambulated here in the emergency department. She is able to ambulate, I feel the patient can be discharged home safely. Patient and family understand and are agreeable with the plan. All questions were answered. Discharge Plan Triage Chief Complaint: General Illness ED Provider: Thomas Mayen Dx/Rx/DC Orders Clinical Impression: Paroxysmal atrial fibrillation, Macular degeneration Instructions: ED AFIB Prescriptions: No Action levetiracetam 500 mg tablet 500 mg PO .COMPLEX Patient Comments: 500 mg PO 0.5 (250 mg) in the am and 1 tablet (500 mg) in the evening.; Rx Instructions: 500 mg PO 0.5 (250 mg) in the am and 1 tablet (500 mg) in the evening.; duloxetine [Cymbalta] 30 mg capsule,delayed release(DR/EC) 30 mg PO BID apixaban 5 mg tablet 5 mg PO BID Qty: 180 3RF acetaminophen 325 mg tablet 325 mg PO Q6H PRN PRN (Reason: Mild Pain (0-3/10)/Headache) Joint AdvantageGold PO DAILY pravastatin 10 mg tablet 10 mg PO .COMPLEX Rx Instructions: 10 mg orally EVERY OTHER DAY; cyanocobalamin (vitamin B-12) 1,000 mcg tablet 1,000 mcg PO DAILY cholecalciferol (vitamin D3) 25 mcg (1,000 unit) tablet,chewable 25 mcg PO DAILY Coral Calcium 133 mg calcium -133 unit-67 mg capsule 1 cap PO DAILY turmeric 400 mg capsule 400 mg PO DAILY Prolia 60 mg/mL syringe 60 mg subcut [id number] metoprolol succinate 25 mg tablet extended release 24 hr 12.5 mg PO DAILY Qty: 45 3RF [place] Q Plus 2 tab PO DAILY vit C,F-As-pxgfw-lutein-zeaxan 1 EACH capsule 1 ea PO BID Primary Care Provider: Juju Lopez Referrals: Juju Lopez DO [Primary Care Provider] - 3-5 Days Disposition Disposition: Home, Self Care
[2023-11-29] MEDS: dilTIAZem 25 MG/5 ML Vial IV BOLUS (12:08)
--- NOTE | 2023-11-29 12:20 | RAD_ITS ---
STUDY: X-RAY CHEST REASON FOR EXAM: Female, 83 years old. Dyspnea TECHNIQUE: PA and lateral views of the chest. COMPARISON: Comparison is made with prior examination dated May 07, 2018. FINDINGS: EKG electrodes are seen. There is elevation of the anterior aspect of the right hemidiaphragm. No acute abnormality is seen. Stable scarring at the right lung apex. There is no demonstrated pleural abnormality. Normal size heart. Normal mediastinum and gerry. Normal visualized pulmonary arteries. There is atherosclerotic calcification of the aortic arch with tortuosity. There are diffuse degenerative changes of the visualized thoracic spine. Normal visualized ribs, clavicles, and shoulders. There is no demonstrated abnormality of the visualized soft tissue structures of the upper abdomen. RAD/Chest PA and Lateral IMPRESSION: Elevation of the right hemidiaphragm. No acute abnormality is seen. Electronically Signed: Jorge Nino MD at 12:48 EST ,
[2023-11-29 12:24] LABS: Absolute Lymphocyte Count 1.22 X10^3/uL (0.83-4.51); Absolute Neutrophil Count 12.3 X10^3/uL (2.0-7.7); Basophil# 0.02 X10^3/uL; Basophil% 0.1 % (0-1); Eosinophil# 0.04 X10^3/uL; Eosinophils% 0.3 % (0-5); Hematocrit 46.2 % (37-47); Hemoglobin 14.8 g/dL (12.0-15.0); Lymphocyte # 1.22 X10^3/ul (0.83-4.51); Lymphocyte % 8.4 % (19-41); Mean Corpuscular Volume 99.8 fL (81-99); Mean Platelet Vol. 11.5 fl (6.2-12.0); Monocyte# 0.86 X10^3/uL; Monocyte% 5.9 % (0-10); NRBC Flagged by Analyzer 0 % (0-5); Neutrophil # 12.31 X10^3/uL (2.7-7.7); Neutrophil % 84.9 % (47-70); Platelet Count 233 K/mm3 (150-450); RBC Distribution Width CV 12.2 % (11.6-14.6); RBC Distribution Width SD 44.4 fl (35.1-43.9); Red Blood Count 4.63 M/mm3 (4.2-5.4); White Blood Count 14.5 K/mm3 (4.4-11.0)
[2023-11-29 12:45] LABS: Anion Gap 4 (5-15); BUN 20 mg/dL (7-18); BUN/Creat Ratio 25.5 RATIO (10-20); Calcium,Total 8.8 mg/dL (8.5-10.1); Chloride 110 mmol/L (98-107); Creatinine, Serum 0.78 mg/dL (0.55-1.02); EST Glomerular Filtration Rate 74 mL/min (>60); Est Glom Filt Rate - Afr Amer 90 mL/min (>60); Estimated Creatinine Clearance 52.86 ml/min; Glucose 140 mg/dL (74-106); Potassium 3.8 mmol/L (3.5-5.1); Sodium Level 140 mmol/L (136-145); Troponin-I HS (w/2H Reflex) 15 pg/mL (3.0-54.0)
--- OUTSIDE RECORDS SUMMARY | 2023-11-29 12:47 | XMS RPT_ITS | CCD ---
Author Name Unknown Address [id number] [place] [address] Organization [facility] Care Team Providers Care Market Research Associate Name Role Phone Falguni Almendarez Unavailable Unavailable MD Raul, Augusto Shaver Unavailable [phone] Kaela Sam RN Unavailable Unavailable Pop Mckeon Unavailable Unavailable Kaela Sam RN Unavailable Unavailable RAQUEL DUMONT Unavailable Unavailable RAQUEL DUMONT Unavailable Unavailable RAQUEL DUMONT Unavailable Unavailable PROVIDER, UNKNOWN Unavailable Unavailable Raquel Dumont Unavailable Unavailable PROVIDER, UNKNOWN Unavailable Unavailable Falguni Almendarez Unavailable Unavailable MD Raul, Augusto Shaver Unavailable RUPA Shay, Brook Vázquez Unavailable Unavailabl e Pop Mckeon Unavailable Unavailable Falguni Almendarez Unavailable Unavailable Falguni Almendarez Unavailable Unavailable Kaela Sam RN Unavailable Unavailable RUPA Shay, Brook Vázquez Unavailable UnavailИВАН Alexis DO Primary Care Physician [phone] ИВАН RAMON DO Attending Unavailable ИВАН RAMON DO Primary Care Unavailable ИВАН RAMON DO Attending Unavailable ИВАН RAMON DO Primary Care Unavailable ИВАН RAMON DO Attending Unavailable ИВАН RAMON DO Primary Care Unavailable JHON HOOD Attending Unavailable ИВАН RAMON DO Primary Care Unavailable JHON HOOD Attending Unavailable ИВАН RAMON DO Primary Care Unavailable Allergies Allergy Classification Reported Allergen(s) Allergy Type Date of Onset Reaction(s) Facility (6 sources) Sulfonamides (Antibiotic); Translations: [sulfa drugs] Drug allergy Fluttering heart (finding), Asthenia (finding) [facility] (4 sources) Alendronate; Translations: [alendronate] Drug Allergy Intolerance, function (observable entity) [facility] [place] Medications Current Medications Medication Drug Class(es) Dates Sig (Normalized) Sig (Original) acetaminophen 325 mg oral capsule (19 sources) Start: 03-20-2018 Tylenol 325 mg oral capsule Dose : 650 mg = 2 cap(s), Oral, q4h, PRN as needed for pain, # 20 cap(s), 0 Refill(s) Start Date: 03/20/18 Status: Ordered Completed/Discontinued Medications Medication Drug Class(es) Dates Sig (Normalized) Sig (Original) amiodarone hydrochloride 200 mg oral tablet (20 sources) Antiarrhythmic Start: 03-19-2016 End: 08-05-2017 take 1 tablet by mouth once daily AMIODARONE HCL 200 MG TABS One tablet by mouth daily AMIODARONE HCL [id number] Augusto Carter MD 1 ml denosumab 60 mg/ml prefilled syringe (4 sources) RANK Ligand Inhibitor Start: 09-03-2023 Prolia 60 mg/mL subcutaneous solution Dose : 60 mg = 1 mL, Subcutaneous, q6mo, Unable to tolerate Fosamax, # 1 mL, 1 Refill(s), Osteoporosis Start Date: 09/03/23 Status: Ordered Problems Active Problems Problem Classification Problem Date Documented Date Episodic/Chronic Acute cerebrovascular disease (6 sources) Cerebrovascular accident Onset: 02-11-2016 02-26-2018 Chronic Anxiety disorders (6 sources) Anxiety 03-20-2018 Chronic Past or Other Problems Problem Classification Problem Date Documented Da te Episodic/Chronic Cancer of breast (13 sources) History of malignant neoplasm of breast; Translations: [Personal history of malignant neoplasm of breast] Onset: 05-08-2016 05-08-2016 Episodic Genitourinary symptoms and ill-defined conditions (2 sources) Unspecified symptoms and signs involving the genitourinary system; Translations: [Unspecified symptoms and signs involving the genitourinary system] Onset: 11-30-2022 Episodic Nonspecific chest pain (20 sources) Chest pain; Translations: [Chest pain, unspecified] Onset: 05-28-2016 04-25-2017 Episodic Other bone disease and musculoskeletal deformities (20 sources) Nonallopathic lesion of the pelvic region; Translations: [Pelvic somatic dysfunction] Onset: 07-24-2016 07-24-2016 Episodic Other bone disease and musculoskeletal deformities (16 sources) Segmental and somatic dysfunction; Translations: [Segmental and somatic dysfunction of thoracic region] Onset: 07-24-2016 08-20-2016 Episodic Other bone disease and musculoskeletal deformities (8 sources) Pelvic somatic dysfunction; Translations: [Segmental and somatic dysfunction of pelvic region] Onset: 08-27-2016 08-27-2016 Episodic Other lower respiratory disease (13 sources) Snoring; Translations: [Snoring] Onset: 03-19-2016 03-19-2016 Episodic Unclassified (13 sources) Family history of malignant neoplasm of breast; Translations: [Family history of malignant neoplasm of breast] 06-28-2015 Episodic Unclassified (1 source) LEFT ANKLE SWELLING Onset: 05-16-2017 Urinary tract infections (2 sources) Acute cystitis without hematuria; Translations: [Acute cystitis without hematuria] Onset: 11-24-2022 Episodic Results Test Name Value Interpretation Reference Range Facil ity Vital Signs Date Time Vital Sign Value Performing [facility] 09-24-2023 10:42-0500 Blood Pressure Location ИВАН RAMON DO [facility] 09-24-2023 10:42-0500 Blood Pressure Method ИВАН RAMON DO [facility] 09-24-2023 10:42-0500 Body temperature 97.34 [degF] ИВАН RAMON DO [facility] 09-24-2023 10:42-0500 Diastolic Blood Pressure Non-Invasive 64 mm[Hg] ИВАН RAMON DO [facility] 09-24-2023 10:42-0500 Heart rate 70 /min ИВАН RAMON DO [facility] 09-24-2023 10:42-0500 Reason For Taking VItal Signs ИВАН RAMON DO [facility] 09-24-2023 10:42-0500 Respiratory rate 18 /min ИВАН RAMON DO [facility] 09-24-2023 10:42-0500 Systolic Blood Pressure Non-Invasive 125 mm[Hg] ИВАН RAMON DO [facility] 08-05-2017 08:34-0400 BMI (Body Mass Index) 26.26 kg/m2 [facility] Work Phone: 08-05-2017 08:34-0400 BP Diastolic 62 mm[Hg] [facility] Work Phone: 08-05-2017 08:34-0400 BP Systolic 130 mm[Hg] [facility] Work Phone: 08-05-2017 08:34-0400 Height 162.56 cm [facility] Work Phone: 08-05-2017 08:34-0400 Pulse (Heart Rate) 58 /min [facility] Work Phone: 08-05-2017 08:34-0400 Respiratory Rate 16 /min [facility] Work Phone: 08-05-2017 08:34-0400 Weight 69.4 kg [facility] Work Phone: 04-25-2017 14:23-0400 BP Diastolic 64 mm[Hg] [facility] Work Phone: 04-25-2017 14:23-0400 BP Systolic 148 mm[Hg] [facility] Work Phone: 04-25-2017 14:23-0400 Height 162.56 cm [facility] Work Phone: 04-25-2017 14:23-0400 Pulse (Heart Rate) 66 /min [facility] Work Phone: 04-25-2017 14:23-0400 Respiratory Rate 18 /min Falguni Almendarez [facility] Work Phone: 10-15-2016 14:26-0500 Heart rate 63 /min Augusto Carter MD [facility] Work Phone: 10-15-2016 13:41-0500 BMI (Body Mass Index) 26.77 kg/m2 Augusto Carter MD [facility] Work Phone: 10-15-2016 13:41-0500 BP Diastolic 92 mm[Hg] Augusto Carter MD [facility] Work Phone: 10-15-2016 13:41-0500 BP Systolic 150 mm[Hg] Augusto Carter MD [facility] Work Phone: 10-15-2016 13:41-0500 BSA (Body Surface Area) 1.76 m2 Augusto Carter MD [facility] Work Phone: 10-15-2016 13:41-0500 Height 162.56 cm Augusto Carter MD [facility] Work Phone: 10-15-2016 13:41-0500 Pulse (Heart Rate) 66 /min Augusto Carter MD [facility] Work Phone: 10-15-2016 13:41-0500 Respiratory Rate 16 /min Augusto Carter MD [facility] Work Phone: 10-15-2016 13:41-0500 Weight 70.76 kg Augusto Carter MD [facility] Work Phone: 06-28-2016 13:23-0400 Body Temperature 97.2 [degF] Augusto Carter MD [facility] Work Phone: 06-28-2016 13:23-0400 Height 162.56 cm Augusto Carter MD [facility] Work Phone: 06-28-2016 13:23-0400 Pulse Oximetry 96 % Augusto Carter MD [facility] Work Phone: 06-28-2016 13:23040 Weight 76.73 kg Aguusto Carter MD [facility] Work Phone: 03-23-2016 11:130400 Pulse Oximetry 93 % Augusto Carter MD [facility] Work Phone: Encounters Encounter Date Encounter Type Care Provider Facility Start: 09-24-2023 End: 09-24-2023 ambulatory ИВАН M YENNY DO Facility:[facility] Start: 09-24-2023 End: 09-24-2023 SAME DAY STAY ИВАН Vázqeuz YENNY DO [facility] Start: 03-21-2023 End: 03-26-2023 ambulatory ИВАН Vázquez YENNY DO Facility:[facility] Start: 02-21-2023 End: 02-22-2023 ambulatory ИВАН Vázquez YENNY DO Facility:[facility] Start: 11-30-2022 End: 12-05-2022 ambulatory JHON HOOD Facility:[facility] Start: 11-30-2022 End: 12-04-2022 Outreach Lab JHON HOOD DO [facility] Start: 11-24-2022 End: 11-29-2022 ambulatory JHON HOOD Facility:[facility] Start: 11-24-2022 End: 11-28-2022 Outreach Lab JHON HOOD DO [facility] Start: 08-23-2022 End: 08-27-2022 Outreach Lab ИВАН RAMON DO [facility] Start: 02-02-2022 End: 02-02-2022 Patient encounter procedure ИВАН M YENNY DO [facility] Start: 10-23-2021 End: 10-23-2021 Patient encounter procedure ИВАН RAMON DO [facility] Start: 04-12-2018 Emergency department patient visit UNKNOWN PROVIDER [facility] Start: 05-16-2017 Ambulatory [facility] Facility: [facility] Procedures Date Procedure Procedure Detail Performing Clinician Start: 11-04-2017 Extraction of cataract ИВАН RAMON DO Plan of Treatment Date Care Activity Detail Author Start: 02-24-2018 End: 02-24-2018 Appointment Appointment [facility] Work Phone: Start: 10-17-2017 End: 04-17-2017 *Hepatic Function Panel *Hepatic Function Panel [facility] Work Phone: Start: 10-17-2017 End: 04-17-2017 Lipid 1996 panel *Lipid Profile CC PCP [facility] Work Phone: Start: 10-17-2017 End: 10-17-2017 *Hepatic Function Panel *Hepatic Function Panel [facility] Work Phone: Start: 10-17-2017 End: 10-17-2017 Lipid panel [AGGREGATE] *Lipid Profile CC PCP [facility] Work Phone: Start: 08-05-2017 End: 08-05-2017 RUTHANN BEAVERS [facility] Work Phone: Start: 08-05-2017 End: 08-05-2017 Follow Up Appt 6 months Follow Up Appt 6 months [facility] Work Phone: Start: 08-05-2017 End: 08-05-2017 Appointment Appointment [facility] Work Phone: Start: 08-05-2017 End: 08-05-2017 RUTHANN BEAVERS [facility] Work Phone: Start: 08-05-2017 End: 08-05-2017 Follow Up Appt 6 months Follow Up Appt 6 months [facility] Work Phone: Start: 07-29-2017 End: 07-29-2017 Appointment Appointment [facility] Work Phone: Start: 04-25-2017 End: 04-25-2017 RUTHANN BEAVERS [facility] Work Phone: Start: 04-25-2017 End: 04-25-2017 Follow Up Appt 3 months Follow Up Appt 3 months [facility] Work Phone: Start: 04-25-2017 End: 04-25-2017 Venous doppler Venous doppler [facility] Work Phone: Start: 04-25-2017 End: 04-25-2017 Appointment Appointment [facility] Work Phone: Start: 04-25-2017 End: 04-25-2017 Appointment Appointment [facility] Work Phone: Start: 04-25-2017 End: 04-25-2017 RUTHANN RUTHANN [facility] Work Phone: Start: 04-25-2017 End: 04-25-2017 Follow Up Appt 3 months Follow Up Appt 3 months [facility] Work Phone: Start: 04-25-2017 End: 04-25-2017 Venous doppler Venous doppler [facility] Work Phone: Start: 04-15-2017 End: 04-17-2017 *Hepatic Function Panel *Hepatic Function Panel [facility] Work Phone: Start: 04-15-2017 End: 04-17-2017 Lipid 1996 panel *Lipid Profile CC PCP [facility] Work Phone: Start: 04-15-2017 End: 04-17-2017 *Hepatic Function Panel *Hepatic Function Panel [facility] Work Phone: Start: 04-15-2017 End: 04-17-2017 Lipid panel [AGGREGATE] *Lipid Profile CC PCP [facility] Work Phone: Start: 10-15-2016 End: 10-15-2016 RUTHANN BEAVERS [facility] Work Phone: Start: 10-15-2016 End: 10-15-2016 Ecg routine ecg w/least 12 lds w/i&r EKG (In office) [facility] Work Phone: Start: 10-15-2016 End: 10-15-2016 Follow Up Appt 6 months Follow Up Appt 6 months [facility] Work Phone: Start: 10-15-2016 End: 10-15-2016 T4 mass conc *T4 (Total) [facility] Work Phone: Start: 10-15-2016 End: 10-15-2016 Thyrotropin Qn *TSH [facility] Work Phone: Start: 10-15-2016 End: 10-15-2016 DJN DJN [facility] Work Phone: Start: 10-15-2016 End: 10-15-2016 Electrocardiogram, complete EKG (In office) [facility] Work Phone: Start: 10-15-2016 End: 10-15-2016 Follow Up Appt 6 months Follow Up Appt 6 months [facility] Work Phone: Start: 10-15-2016 End: 10-15-2016 Thyroid stimulating hormone (TSH) *TSH [facility] Work Phone: Start: 10-15-2016 End: 10-15-2016 Thyroxine (T4) *T4 (Total) [facility] Work Phone: Start: 10-05-2016 End: 10-15-2016 *Hepatic Function Panel *Hepatic Function Panel [facility] Work Phone: Start: 10-05-2016 End: 10-15-2016 Lipid 1996 panel *Lipid Profile CC PCP [facility] Work Phone: Start: 10-05-2016 End: 10-15-2016 *Hepatic Function Panel *Hepatic Function Panel [facility] Work Phone: Start: 10-05-2016 End: 10-15-2016 Lipid panel [AGGREGATE] *Lipid Profile CC PCP [facility] Work Phone: Start: 08-27-2016 End: 08-27-2016 Follow up Appt 1x/week Follow up Appt 1x/week [facility] Work Phone: Start: 08-27-2016 End: 08-27-2016 Follow up Appt 1x/week Follow up Appt 1x/week [facility] Work Phone: Start: 08-20-2016 End: 08-20-2016 Follow up Appt 1x/week Follow up Appt 1x/week [facility] Work Phone: Start: 08-20-2016 End: 08-20-2016 Follow up Appt 1x/week Follow up Appt 1x/week [facility] Work Phone: Start: 08-16-2016 End: 08-16-2016 Follow up Appt 1x/week Follow up Appt 1x/week [facility] Work Phone: Start: 08-16-2016 End: 08-16-2016 Follow up Appt 1x/week Follow up Appt 1x/week [facility] Work Phone: Start: 08-13-2016 End: 08-13-2016 Follow up Appt 2x/week Follow up Appt 2x/week [facility] Work Phone: Start: 08-13-2016 End: 08-13-2016 Follow up Appt 2x/week Follow up Appt 2x/week [facility] Work Phone: Start: 08-09-2016 End: 08-09-2016 Follow up Appt 2x/week Follow up Appt 2x/week [facility] Work Phone: Start: 08-09-2016 End: 08-09-2016 Follow up Appt 2x/week Follow up Appt 2x/week [facility] Work Phone: Start: 08-07-2016 End: 08-07-2016 Follow up Appt 3x/week Follow up Appt 3x/week [facility] Work Phone: Start: 08-06-2016 End: 08-07-2016 Follow up Appt 3x/week Follow up Appt 3x/week [facility] Work Phone: Start: 08-06-2016 End: 08-06-2016 Follow up Appt 3x/week Follow up Appt 3x/week [facility] Work Phone: Start: 08-02-2016 End: 08-06-2016 Follow up Appt 3x/week Follow up Appt 3x/week [facility] Work Phone: Start: 08-02-2016 End: 08-06-2016 Follow up Appt 3x/week Follow up Appt 3x/week [facility] Work Phone: Start: 07-30-2016 End: 07-30-2016 Follow up Appt 3x/week Follow up Appt 3x/week [facility] Work Phone: Start: 07-30-2016 End: 07-30-2016 Follow up Appt 3x/week Follow up Appt 3x/week [facility] Work Phone: Start: 07-24-2016 End: 07-24-2016 Follow up Appt 3x/week Follow up Appt 3x/week [facility] Work Phone: Start: 07-24-2016 End: 07-24-2016 Follow up Appt 3x/week Follow up Appt 3x/week [facility] Work Phone: Start: 06-28-2016 End: 05-08-2016 *CBC with Differential *CBC with Differential [facility] Work Phone: Start: 06-28-2016 End: 05-08-2016 *CMP Complete Metabolic Panel *CMP Complete Metabolic Panel [facility] Work Phone: Start: 06-28-2016 End: 05-08-2016 LDH enzyme act/vol *LDH -LDH (Lactate Dehydrogenase) [facility] Work Phone: Start: 06-28-2016 End: 05-08-2016 Magnesium mass conc *Magnesium [facility] Work Phone: Start: 06-28-2016 End: 05-08-2016 Urate mass conc *Uric Acid Blood [facility] Work Phone: Start: 06-28-2016 End: 05-08-2016 *CBC with Differential *CBC with Differential [facility] Work Phone: Start: 06-28-2016 End: 05-08-2016 *CMP Complete Metabolic Panel *CMP Complete Metabolic Panel [facility] Work Phone: Start: 06-28-2016 End: 05-08-2016 Lactate dehydrogenase (LDH) *LDH -LDH (Lactate Dehydrogenase) [facility] Work Phone: Start: 06-28-2016 End: 05-08-2016 Magnesium *Magnesium [facility] Work Phone: Start: 06-28-2016 End: 05-08-2016 Urate *Uric Acid Blood [facility] Work Phone: Start: 05-28-2016 End: 05-28-2016 Nuclear stress test -Lexiscan Nuclear stress test -Lexiscan [facility] Work Phone: Start: 05-28-2016 End: 05-28-2016 Nuclear stress test -Lexiscan Nuclear stress test -Lexiscan [facility] Work Phone: Start: 04-06-2016 End: 04-05-2016 *Hepatic Function Panel *Hepatic Function Panel [facility] Work Phone: Start: 04-06-2016 End: 04-05-2016 Lipid 1996 panel *Lipid Profile CC PCP [facility] Work Phone: Start: 04-06-2016 End: 04-05-2016 T4 mass conc *T4 (Total) [facility] Work Phone: Start: 04-06-2016 End: 04-05-2016 Thyrotropin Qn *TSH [facility] Work Phone: Start: 04-06-2016 End: 04-05-2016 *Hepatic Function Panel *Hepatic Function Panel [facility] Work Phone: Start: 04-06-2016 End: 04-05-2016 Lipid panel [AGGREGATE] *Lipid Profile CC PCP [facility] Work Phone: Start: 04-06-2016 End: 04-05-2016 Thyroid stimulating hormone (TSH) *TSH [facility] Work Phone: Start: 04-06-2016 End: 04-05-2016 Thyroxine (T4) *T4 (Total) [facility] Work Phone: Start: 03-23-2016 End: 03-23-2016 RUTHANN GOMEZN [facility] Work Phone: Start: 03-23-2016 End: 03-23-2016 Follow Up Appt 6 months Follow Up Appt 6 months [facility] Work Phone: Start: 03-23-2016 End: 03-23-2016 Follow Up BP Check Follow Up BP Check [facility] Work Phone: Start: 03-23-2016 End: 03-23-2016 RUTHANN BEAVERS [facility] Work Phone: Start: 03-23-2016 End: 03-23-2016 Follow Up Appt 6 months Follow Up Appt 6 months [facility] Work Phone: Start: 03-23-2016 End: 03-23-2016 Follow Up BP Check Follow Up BP Check [facility] Work Phone: Patient Education [facility] Work Phone: Immunizations Immunization Date Immunization Notes Care Provider [facility] 09-18-2023 SARS-CoV-2 (COVID-19 ) [id number] ИВАН RAMON DO [facility] 08-23-2022 COVID-19, mRNA, LNP- S, bivalent booster, PF, 30 mcg/0.3 mL dose; Translations: [COPsync COVID-19 (12y+) Bivalent Booster Vaccine PF] ИВАН RAMON DO [facility] 08-23-2022 influenza, high dose seasonal, preservative-free ИВАН RAMON DO [facility] 09-07-2021 COVID-19, mRNA, LNP- S, PF, 30 mcg/0.3 mL dose; Translations: [bop[employer] COVID-19 Vaccine] ИВАН YENNY DO [facility] 08-11-2021 influenza, high dose seasonal, preservative-free; Translations: [Fluad Quadrivalent PF ] ИВАН YENNY DO [facility] 01-31-2021 SARS-CoV-2 mRNA (tozinameran) vaccine ИВАН YENNY DO [facility] 01-10-2021 SARS-CoV-2 mRNA (tozinameran) vaccine ИВАН YENNY DO [facility] Payers Date Payer Category Payer Unknown [id number] 1940 Unknown [id number] [id number] 1940 Unknown [id number] 1940 Unknown [id number] 1940 Unknown [id number] [id number] [id number] 1940 Unknown [id number] [id number] Unknown Social History Date Type Detail Facility Start: 04-07-2021 Never smoked t obacco (finding) [facility] Sex Assigned At Female [facility] Procedure Code Equipment Code Equipment Origin al Text Equipment Identifier Dates FDA Start: 03-03-2018 FDA Start: 03-24-2018 FDA Start: 03-03-2018 FDA Start: 03-24-2018 Unknown Unknown 03/03/18 Unknown Unknown FDA Start: 03-03-2018 Unknown Unknown 03/24/18 Unknown Unknown FDA Start: 03-24-2018 Unknown Unknown 03/03/18 Unknown Unknown FDA Start: 03-03-2018 Unknown Unknown 03/24/18 Unknown Unknown FDA Start: 03-24-2018 Unknown Unknown 03/03/18 Unknown Unknown FDA Start: 03-03-2018 Unknown Unknown 03/24/18 Unknown Unknown FDA Start: 03-24-2018 Unknown Unknown 03/03/18 Unknown Unknown FDA Start: 03-03-2018 Unknown Unknown 03/24/18 Unknown Unknown FDA Start: 03-24-2018 Mental Status Date Assessment Result Facility 09-24-2023 Mental Status Orientation Oriented x 4 [facility] Clinical Note 12-02-2022 Note Date & Type Note Facility 12-02-2022 Note . MICRO - Microbiology PROCEDURE: Urine Culture [*1] SOURCE: Urine BODY SITE: COLLECTED DATE/TIME: 11/30/2022 13:59 EST RECEIVED DATE/TIME: 11/30/2022 19:40 EST START DATE/TIME: 11/30/2022 19:40 EST FREE TEXT SOURCE: FINAL REPORTS Final Report [] Verified Date/Time/Personnel: 12/02/2022 08:39 EST <10,000 cfu/ml. No Significant growth. Sensitivity not indicated. PRELIMINARY REPORTS Preliminary Report [] Verified Date/Time/Personnel: 12/01/2022 12:38 EST No growth to date Performing Locations *1: This test was performed at: [facility], [address] [place] [address], [facility] , [facility] ([place]) Clinical Note 11-27-2022 Note Date & Type Note Facility 11-27-2022 Note . MICRO - Microbiology PROCEDURE: Urine Culture [*1] SOURCE: Urine, Clean Catch BODY SITE: COLLECTED DATE/TIME: 11/24/2022 12:45 EST RECEIVED DATE/TIME: 11/25/2022 20:34 EST START DATE/TIME: 11/25/2022 20:35 EST FREE TEXT SOURCE: FINAL REPORTS Final Report [] Verified Date/Time/Personnel: 11/27/2022 07:53 EST >100,000 cfu/ml Escherichia coli PRELIMINARY REPORTS Preliminary Report [] Verified Date/Time/Personnel: 11/26/2022 14:01 EST >100,000 cfu/ml Escherichia coli BENEDICT to follow SUSCEPTIBILITY RESULTS Escherichia coli Antibiotic BENEDICT Dilut BENEDICT Inter Ampicillin >16 Resistant Ampicillin/ >16/8 Resistant Sulbactam Aztreonam <=4 Susceptible Cefazolin 4 Susceptible Ciprofloxacin <=0.25 Susceptible Ertapenem <=0.5 Susceptible Gentamicin <=2 Susceptible Imipenem <=1 Susceptible Levofloxacin <=0.5 Susceptible Meropenem <=1 Susceptible Minocycline 8 Intermediate Nitrofurantoin <=32 Susceptible Piperacillin/ <=8 Susceptible Tazobactam Trimethoprim/ >2/38 Resistant Sulfa Performing Locations *1: This test was performed at: [facility], [address] [place] [address] ([place]) Evaluation + Plan note Radiology Note Date & Type Note Facility Evaluation + Plan note Future Appointments Appointment Date:02/09/2022 10:30:00 AM Scheduled Provider:ИВАН RAMON DO Location:[facility] Appointment Type: OV Future Scheduled TestsBD Bone Density DEXA Axial Skeleton 10/23/21 [facility] Evaluation + Plan note Note Date & Type Note Facility Evaluation + Plan note Future Appointments Appointment Date:02/09/2022 10:30:00 AM Scheduled Provider:ИВАН RAMON DO Location:[facility] Appointment Type: OV [facility] Evaluation + Plan note Note Date & Type Note Facility Evaluation + Plan note Future Appointments Appointment Date:02/26/2023 10:30:00 AM Scheduled Provider:ИВАН RAMON DO Location:[facility] Appointment Type:PC OV [facility] Evaluation + Plan note Laboratory Note Date & Type Note Facility Evaluation + Plan note Future Appointments Appointment Date:02/26/2023 10:30:00 AM Scheduled Provider:ИВАН RAMON DO Location:[facility] Appointment Type:PC OV Future Scheduled TestsUrinalysis 11/27/22Urine Culture 11/27/22 [facility] Evaluation + Plan note Note Date & Type Note Facility Evaluation + Plan note Future Appointments Appointment Date:09/25/2023 09:00:00 AM Scheduled Provider:ИВАН RAMON DO Location:[facility] Appointment Type:PC Wellness [facility] Enhanced [facility] Hospital course Narrative Note Date & Type Note Facility Hospital course Narrative No data available for this section [facility] Hospital Discharge instructions Note Date & Type Note Facility Hospital Discharge instructions No data available for this section [facility] Progress note Note Date & Type Note Facility Progress note No data available for this section [facility] Summary Purpose Family History No Family History Records FoundNo Family History Records FoundNo Family History Records Found No data available for this section No Family History Records Found Advance Directives No Advanced Directives Records FoundNo Advanced Directives Records FoundNo Advanced Directives Records FoundNo Advanced Directives Records Found Additional Source Comments INFORMATION SOURCE (unrecogn ized section and content) DATE CREATED AUTHOR AUTHOR'S ORGANIZ ATION 05/01/2018 [facility] DATE CREATED AUTHOR AUTHOR'S ORGANIZ ATION 07/07/2020 [facility] DATE CREATED AUTHOR AUTHOR'S ORGANIZ ATION 09/30/2023 [facility] ([place]) Care Team (unrecognized sect ion and content) Personnel Name: ИВАН RAMON DO Address: [address] [place] [address] [place] [address]- [place] Care Team Personnel Name: JOSE STOCKTON Member Role: Chiropractor Address: Address: [address] [place] [address] Name: GRACIELA PEDROZA MD Position: [facility] Physician Member Role: Neurologist Address: Address: [address] [facility] [place] [address]- [place] Name: FRANCHESCA BERG MD Member Role: Oncologist Address: Address: [address] [place] [address]- [place] Name: ALEXI COLMENARES MD Member Role: Generator Repairer Address: Address: [address] [place] [address]- [place] Name: ИВАН RAMON DO Position: P4 Physician - Primary Care Member Role: Primary Care Physician Address: Address: [address] [place] [address]- [place] Name: MATT RAMIREZ MD Member Role: Cash Crop Farmer Address: Address: [address] [place] [address] [place] Name: MARGARET MORALES MD Member Role: Candy Department Manager Address: Address: [address] [address]- [place] Name: MAGDY SYED Member Role: Engineering Test Mechanic Address: Address: [address] [address]- [place] Name: GROVER FLORES DPM Position: Physician Member Role: Authorization Manager Address: Address: [address] [facility], [address] [facility] [place] [address]- Care Team Related Persons Name: KATIE DEGROOT Name: ISABEL DEGROOT Care Team (unrecognized sect ion and content) Care Team Personnel Name: JOSE STOCKTON Member Role: Chiropractor Address: Address: [address] [place] [address]- [place] Name: GRACIELA PEDROZA MD Position: [facility] Physician Member Role: Neurologist Address: Address: [address] [facility] [place] [address]- [place] Name: FRANCHESCA BERG MD Member Role: Oncologist Address: Address: [address] [place] [address]- [place] Name: ALEXI COLMENARES MD Member Role: Generator Repairer Address: Address: [address] [place] [address]- [place] Name: ИВАН RAMON DO Position: P4 Physician - Primary Care Member Role: Primary Care Physician Address: Address: [address] [place] [address]- [place] Name: MATT RAMIREZ MD Member Role: Cash Crop Farmer Address: Address: [address] [place] [address] [place] Name: MARGARET MORALES MD Member Role: Candy Department Manager Address: Address: [address] [address]- [place] Name: MAGDY SYED Member Role: Engineering Test Mechanic Address: Address: [address] [facility] [address] [place] [address]- [place] Name: GROVER FLORES DPM Position: Physician Member Role: Authorization Manager Address: Address: [address] [facility] [facility] [place] [address]- [place] Care Team Related Persons Name: KATIE DEGROOT Name: ISABEL DEGROOT Care Team Personnel Name: JOSE STOCKTON Member Role: Chiropractor Address: Address: [address] [place] [address]- [place] Name: GRACIELA PEDROZA MD Position: [facility] Physician Member Role: Neurologist Address: Address: [address] [facility] [place] [address]- [place] Name: FRANCHESCA BERG MD Member Role: Oncologist Address: Address: [address] [place] [address]- [place] Name: ALEXI COLMENARES MD Member Role: Generator Repairer Address: Address: [address] [facility] [place] [address]- [place] Name: ИВАН RAMON DO Position: Physician - Primary Care Member Role: Primary Care Physician Address: Address: [address] [place] [address]- [place] Name: MATT RAMIREZ MD Member Role: Cash Crop Farmer Address: Address: [address] [place] [address] [place] Name: MARGARET MORALES MD Member Role: Candy Department Manager Address: Address: [address] [facility] [address] [place] [address]- [place] Name: MAGDY SYED Member Role: Engineering Test Mechanic Address: Address: [address] [facility] [address] [place] [address]- [place] Name: GROVER FLORES DPM Position: Physician Member Role: Authorization Manager Address: Address: [address] [facility] [facility] [place] [address]- Care Team Related Persons Name: KATIE DEGROOT Name: ISABEL DEGROOT Care Team Personnel Name: JOSE STOCKTON Member Role: Chiropractor Address: Address: [address] [place] [address]- Name: GRACIELA PERDOZA MD Position: [facility] Physician Member Role: Neurologist Address: Address: [address] [facility] [place] [address]- Name: FRANCHESCA BERG MD Member Role: Oncologist Address: Address: [address] [place] [address]- Name: ALEXI COLMENARES MD Member Role: Generator Repairer Address: Address: [address] [place] [address]- [place] Name: ИВАН RAMON DO Position: Physician - Primary Care Member Role: Primary Care Physician Address: Address: [address] [place] [address]- Name: MATT RAMIREZ MD Member Role: Cash Crop Farmer Address: Address: [address] [place] [address] [place] Name: MARGARET MORALES MD Member Role: Candy Department Manager Address: Address: [address] [address]- [place] Name: MAGDY SYED Member Role: Engineering Test Mechanic Address: Address: [address] [address]- Name: GROVER FLORES DPM Position: Physician Member Role: Authorization Manager Address: Address: [address] [facility], [address] [facility] [address] Care Team Related Persons Name: KATIE DEGROOT Name: ISABEL DEGROOT FOR RECORDS PERTAINING TO PATIENTS WHO ARE OR HAVE BEEN ENROLLED IN A CHEMICAL DEPENDENCY/SUBSTANCEABUSE PROGRAM, SOME INFORMATION MAY BE OMITTED. This clinical summary was aggregated from multiple sources. Caution should be exercised in using it in the provision of clinical care. This summary normalizes information from multiple sources, and as a consequence, information in this document may materially change the coding, format and clinical context of patient data. In addition, data may be omitted in some cases. CLINICAL DECISIONS SHOULD BE BASED ON THE PRIMARY CLINICAL RECORDS. [email or web address] provides no warranty or guarantee of the accuracy or completeness of information in this document.
[2023-11-29 14:20] LABS: Reflex Troponin-HS? (from REC) Y
[2023-11-29 15:08] LABS: Troponin-I HS 14 pg/mL (3.0-54.0)
== END 2023-11-29 16:22 | disposition home or self-care (01) ==
PROVIDERS: Emergency Provider Emergency Medicine; PCP Family Medicine; Visit Provider Emergency Medicine
DX: I48.0 Paroxysmal atrial fibrillation (principal); H35.30 Unspecified macular degeneration; Z79.01 Long term (current) use of anticoagulants; Z79.899 Other long term (current) drug therapy
CPT/HCPCS: 71046; 80048; 84484; 85025; 87631; 93005; 96374; 99283; J7030; A4216

== ENCOUNTER 2024-07-05 08:21 | Observation (INO) | payer MEDICARE, SELFPAY ==
[2024-07-05] VITALS (7 sets, daily range): BP systolic 97–150; BP diastolic 55–84; PULSE 64–92; RESP 11–26; TEMP 35.8–37.2; O2SAT 85–100; BMI 34.2; BMI 27.5
--- NOTE | 2024-07-05 08:45 | EX.ED.DYSGE1 ---
HPI History of Present Illness Chief Complaint: Dizziness Informant: patient Onset/Context/Timing Onset: Today Context: Sudden Onset Quality: Dull Location: Head, neck, and back Worsened by: Nothing Relieved by: Nothing Narrative Narrative: Patient presents after syncopal episode that occurred today. Patient states she got dizzy and passed out while taking a shower today. Patient fell backwards and hit her head. Family is unsure how long the patient was out for. Patient states she was laying in the tub for approximately 45 minutes. Patient complains of pain to the back of her head into her neck and back. Patient denies any paresthesias or weakness. Patient states he did feel dizzy prior to the syncopal episode. Patient denies any palpitations or chest pain. Patient denies any shortness of breath or cough. [facility] Medical History (Updated 07/05/24 @ 14:[address] Thomas Mayen, DO) Seizure Paroxysmal atrial fibrillation Macular degeneration Left hemiparesis Cerebrovascular disease Gammopathy 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 Snoring Acute right MCA stroke (02/08/16) Obesity (BMI 30.0-34.9) Home Medications ?Medication ?Instructions ?Recorded ?Last Taken ?Type vit C 250 mg-vit E 90 mg-zinc 40 1 ea PO BID eye vitamin 05/07/18 Unknown History mg-copper 1 [id number] capsule levetiracetam 500 mg tablet 500 mg PO .COMPLEX 10/20/18 Unknown History Marshall Q Plus 2 tab PO DAILY 07/13/19 Unknown History apixaban 5 mg tablet 5 mg PO BID blood thinner #180 tabs 12/04/19 Unknown Rx acetaminophen 325 mg tablet 325 mg PO Q6H PRN PRN Mild Pain 01/12/21 Unknown History (0-3/10)/Headache pravastatin 10 mg tablet 10 mg PO .COMPLEX 01/12/21 Unknown History calcium carb 133 mg-vitD3 133 1 cap PO DAILY 02/08/22 Unknown History unit-mag amino acid chelate 67mg capsule (Coral Calcium) cholecalciferol (vitamin D3) 25 25 mcg PO DAILY 02/08/22 Unknown History mcg (1,000 unit) chewable tablet duloxetine 30 mg capsule,delayed 30 mg PO BID 02/08/22 Unknown History release (Cymbalta) denosumab 60 mg/mL subcutaneous 60 mg subcut [id number] 05/02/23 Unknown History syringe (Prolia) metoprolol succinate 25 mg 12.5 mg (1/2 x 25 mg) PO DAILY 01/16/24 Unknown Rx tablet,extended release 24 hr blood pressure #45 tabs Allergy/AdvReac Type Severity Reaction Status Date / Time No Known Allergies Allergy Verified 07/05/24 08:22 Family History Father CAD (coronary artery disease) Aunt Breast cancer Sister Uterine cancer Surgical History S/P laser cataract surgery History of bilateral cataract extraction History of colonoscopy History of total mastectomy of right breast Social History household members: family Smoking Status: Never smoker substance use type: does not use ROS ROS ED Constitutional Constitutional ED: Denies chills or fever(s) Eyes Eyes: Denies blurry vision or change in vision ENT ENT ED: Denies rhinorrhea or sore throat Cardiovascular Cardiovascular: Denies chest pain or palpitations Respiratory/Chest Respiratory/Chest: Denies cough or dyspnea Gastrointestinal Gastrointestinal: Reports nausea; Denies vomiting Genitourinary Genitourinary ED: Denies dysuria or hematuria Musculoskeletal Musculoskeletal: Reports back pain and neck pain Integumentary Denies abscess or rash Neurologic Neurologic: Reports headache(s); Denies weakness Allergic/Immunologic Allergic/Immunologic ED: Denies mouth swelling or urticaria EXAM Physical Exam Const Vital Signs: 07/05/24 08:21 07/05/24 10:21 07/05/24 12:00 Temperature 96.5 F L Temperature Source Temporal Pulse Rate 85 88 92 Respiratory Rate 26 H 11 L 21 H Blood Pressure 97/63 150/84 H 118/71 Blood Pressure Mean 74 106 86 Pulse Ox 85 100 93 Oxygen Delivery Method Room Air Room Air Room Air 07/05/24 14:00 07/05/24 14:29 Temperature 98.9 F Temperature Source Pulse Rate 64 83 Respiratory Rate 18 16 Blood Pressure 119/76 124/71 H Blood Pressure Mean 90 88 Pulse Ox 98 98 Oxygen Delivery Method Room Air Positive well nourished and well developed General Appearance ED: well developed and NAD HEENT Reports moist mucous membranes Eyes PERRL and EOMs intact bilaterally Neck supple and no JVD Resp normal respiratory effort and clear to auscultation bilaterally Cardio regular rate and regular rhythm GI non-tender and non-distended Palpation: soft Back/Spine Cervical Spine: cervical spine tenderness Thoracic Spine / Upper Back: thoracic spinal tenderness Lumbar Spine / Lower Back: lumbar spinal tenderness Extremity General Extremety ED: Negative for edema or tenderness General Extremity: Negative for edema Neuro oriented x3, CN's II-XII intact bilaterally and no sensory deficits noted Sensorium / Orientation: alert Motor Exam: strength 5/5 throughout Psych mental status grossly normal MDM MDM MDM Narrative Medical decision making narrative: Differential diagnosis includes cardiac dysrhythmia, cardiac ischemia, intracranial bleeding, stroke, electrolyte abnormality, coagulopathy, dehydration, and vasovagal episode. CT scan of the brain will be obtained to assess for intracranial bleeding and head injury. Chest x-ray will be obtained to assess for pneumonia and pneumothorax. X-rays of the thoracic and lumbar spine will be obtained to assess for fracture. CT scan of the cervical spine will be obtained to assess for cervical spine fracture. EKG will be obtained to assess for cardiac dysrhythmia and cardiac ischemia. CBC will be obtained to assess for leukocytosis and anemia. Basic metabolic profile will be obtained to assess for electrolyte abnormality and renal function. Urinalysis will be obtained to assess for urinary tract infection and hematuria. High-sensitivity troponin will be obtained to assess for cardiac ischemia. 2-hour repeat high-sensitivity troponin will be obtained to assess for ongoing cardiac ischemia. Lab Data Attestation: I reviewed the patient's lab results. Lab results narrative: CBC was reviewed. There is a leukocytosis of 20.7. The remainder was within normal limits. PT with INR and PTT were reviewed. Pro time was 15.2 and INR is 1.2. PTT was normal at 27.6. Basic metabolic profile was reviewed. BUN was slightly elevated at 21. Creatinine was normal. Glucose was slightly elevated at 127. The remainder is within normal limits. High-sensitivity troponin was reviewed and was normal at 18. Urinalysis was reviewed. Leukocyte esterase was 25. There were 0-5 white blood cells seen. There were positive nitrites and 1+ bacteria. 2-hour repeat high-sensitivity troponin was reviewed and was normal at 17. Labs: Laboratory Results - last 24 hr 09/01/24 09/01/24 09/01/24 10:01 12:36 12:43 WBC 20.7 H RBC 4.19 L Hgb 13.3 Hct 40.7 MCV 97.1 MCH 31.7 MCHC 32.7 RDW Std Deviation 43.6 RDW Coeff of Rich 12.2 Plt Count 267 MPV 10.9 Immature Gran % (Auto) 0.600 Neut % (Auto) 86.6 H Lymph % (Auto) 6.5 L Bowman % (Auto) 6.0 Eos % (Auto) 0.1 Baso % (Auto) 0.2 Absolute Neuts (auto) 17.9 H Absolute Lymphs (auto) 1.34 Nucleated RBC % 0 PT 15.2 H INR 1.2 APTT 27.6 Sodium 139 Potassium 3.9 Chloride 109 H Carbon Dioxide 24.0 Anion Gap 6 BUN 21 H Creatinine 0.80 Estim Creat Clear Calc 54.91 Est GFR (MDRD) Af Amer 89 Est GFR (MDRD) Non-Af 73 BUN/Creatinine Ratio 26.4 H Glucose 127 H Calcium 9.0 Troponin I High Sens 18 17 Urine Color Yellow Urine Clarity Clear Urine pH 7.0 Ur Specific [place] 1.015 Urine Protein 15 H Urine Glucose (UA) Normal Urine Ketones 15 H Urine Occult Blood Negative Urine Nitrite Positive H Urine Bilirubin Negative Urine Urobilinogen Normal Ur Leukocyte Esterase 25 H Urine RBC 0 SEEN Urine WBC 0-5 SEEN Ur Squamous Epith Cells 0 SEEN Urine Bacteria 1+ Urine Mucus 0 SEEN Radiography Diagnostic Testing: Clinical Impression(s) from Imaging Studies Brain CT 07/05/24 09:20 IMPRESSION: 1. No CT evidence of acute intracranial pathology or acute injury of the cervical spine. 2. Chronic ischemic changes. 3. Degenerative changes in the cervical spine. 4. Scarring and/or consolidative airspace disease in the right upper lobe and apparent scarring in the left apex. Electronically Signed: Josse Morales DO at 11:00 EDT , Chest X-Ray 07/05/24 09:20 IMPRESSION: No fracture in the lumbar spine. Degenerative changes as above. Electronically Signed: Josse Morales DO at 11:14 EDT , Cervical Spine CT 07/05/24 09:22 IMPRESSION: 1. No CT evidence of acute intracranial pathology or acute injury of the cervical spine. 2. Chronic ischemic changes. 3. Degenerative changes in the cervical spine. 4. Scarring and/or consolidative airspace disease in the right upper lobe and apparent scarring in the left apex. Electronically Signed: Josse Morales, at 11:00 EDT , Lumbar Spine X-Ray 07/05/24 09:22 IMPRESSION: No fracture in the lumbar spine. Degenerative changes as above. Electronically Signed: Josse MoralesDO at 11:15 EDT , Thoracic Spine X-Ray 07/05/24 09:22 IMPRESSION: No fracture in the lumbar spine. Degenerative changes as above. Electronically Signed: Josse MoralesDO at 11:14 EDT , Portable 1 view chest x-ray was obtained. On my independent interpretation, lung ervin are clear. There is normal cardiac silhouette. Bony thorax is normal. There is no acute process noted. Radiologist also interpreted the x-ray and agrees. X-rays of the thoracic spine were obtained. There are 3 views. On my independent interpretation, there is no acute fracture or spondylolisthesis. There are degenerative changes noted. Radiologist also interpreted the x-rays and agrees. X-rays of the lumbar spine were obtained. There are 2 views. On my independent interpretation, there is no acute fracture or spondylolisthesis. There are degenerative changes noted. Radiologist also interpreted the x-rays and agrees. CT scan of the cervical spine was obtained. There is no acute fracture or dislocation. There are some degenerative changes noted. This was interpreted by the radiologist and was also independently reviewed by myself. CT scan of the brain was obtained. There is no acute intracranial abnormality. This was interpreted by the radiologist and was also independently reviewed by myself. EKG Initial EKG: Attestation: I personally reviewed and interpreted this EKG as follows: Interpretation: Sinus Rhythm (With first-degree AV block with a rate of 83) and No Acute Injury Pattern Comments: EKG was obtained. On my independent interpretation, shows a sinus rhythm with a first-degree AV block with a rate of 83. RI interval was prolonged at 224 ms. QRS interval was normal at 82 ms. QTc interval was normal at 448 ms. Merom was normal. There are no acute ST or T wave changes noted. Prior EKG tracings: available for review Prior: Unchanged (11/29/2023) Additional Tests and Interventions Additional Tests or Interventions: Urine culture was ordered. Treatment and Re-Evaluation :: Patient was advised of her findings. Patient is feeling better on reevaluation. Patient was cleared off the backboard. Case was discussed with the hospitalist for admission. He will admit the patient for observation. Patient and family understand and are agreeable with the plan. All questions were answered. Discharge Plan Triage Chief Complaint: Dizziness ED Provider: Thomas Mayen Dx/Rx/DC Orders Clinical Impression: Syncope and collapse, Closed head injury, Acute cervical myofascial strain Prescriptions: No Action levetiracetam 500 mg tablet 500 mg PO .COMPLEX Patient Comments: 500 mg PO 0.5 (250 mg) in the am and 1 tablet (500 mg) in the evening.; Rx Instructions: 500 mg PO 0.5 (250 mg) in the am and 1 tablet (500 mg) in the evening.; duloxetine [Cymbalta] 30 mg capsule,delayed release(DR/EC) 30 mg PO BID apixaban 5 mg tablet 5 mg PO BID Qty: 180 3RF acetaminophen 325 mg tablet 325 mg PO Q6H PRN PRN (Reason: Mild Pain (0-3/10)/Headache) pravastatin 10 mg tablet 10 mg PO .COMPLEX Rx Instructions: 10 mg orally EVERY OTHER DAY; cholecalciferol (vitamin D3) 25 mcg (1,000 unit) tablet,chewable 25 mcg PO DAILY Coral Calcium 133 mg calcium -133 unit-67 mg capsule 1 cap PO DAILY Prolia 60 mg/mL syringe 60 mg subcut [id number] metoprolol succinate 25 mg tablet extended release 24 hr 12.5 mg PO DAILY Qty: 45 3RF Marshall Q Plus 2 tab PO DAILY vit C,S-Jv-wnepu-lutein-zeaxan 1 EACH capsule 1 ea PO BID Primary Care Provider: Juju Lopez Referrals: Juju Lopez DO [Primary Care Provider] - Print Language: Ecuadorean Disposition Disposition: Acute Care [facility]
--- NOTE | 2024-07-05 09:20 | RAD_ITS ---
EXAM: XR CHEST, 1 VIEW CLINICAL INDICATION: Syncope TECHNIQUE: Frontal view of the chest. COMPARISON: 11/29/2023 FINDINGS: LUNGS AND PLEURAL SPACES: No significant abnormality. No consolidation or edema. No pneumothorax. No effusion. HEART: No significant abnormality. Cardiac silhouette not enlarged. MEDIASTINUM: Central airways and mediastinal contour are unremarkable. BONES/JOINTS: Degenerative changes in the spine and shoulders. No acute fracture. SOFT TISSUES: No significant abnormality. VASCULATURE: Atherosclerosis. IMPRESSION: No acute findings in the chest. EXAM: XR THORACIC SPINE, 3 VIEWS CLINICAL INDICATION: Syncope TECHNIQUE: Frontal, lateral and swimmer''s views of the thoracic spine. COMPARISON: No relevant prior studies available. FINDINGS: VERTEBRAE: Multilevel facet arthrosis and endplate osteophytosis. No spondylolisthesis. Preservation of the normal thoracic kyphosis. No fracture or traumatic subluxation. DISC SPACES: Multilevel mild intervertebral disc height loss. IMPRESSION: No fracture or traumatic subluxation. Degenerative changes. EXAM: XR LUMBOSACRAL SPINE, 2 OR 3 VIEWS CLINICAL INDICATION: Syncope TECHNIQUE: Frontal and lateral views of the lumbar spine and sacrum. COMPARISON: No relevant prior studies available. FINDINGS: VERTEBRAE: Multilevel facet arthrosis and endplate osteophytosis. Apparent degenerative anterolisthesis of L4 upon L5 secondary to facet arthrosis. No spondylolisthesis. Preservation of the normal lumbar lordosis. No fracture in the lumbar spine. DISC SPACES: Mild multilevel disc height loss. VASCULATURE: Vascular calcifications. GASTROINTESTINAL TRACT: Normal as visualized. Included bowel gas pattern is non-obstructive. RAD/Chest 1 View (Portable) IMPRESSION: No fracture in the lumbar spine. Degenerative changes as above. Electronically Signed: Josse Morales DO at 11:14 EDT ,
--- NOTE | 2024-07-05 09:21 | EKG12_ITS ---
Test Reason : SYNCOPE Blood Pressure : / mmHG Vent. Rate : 083 BPM Atrial Rate : 083 BPM P-R Int : 224 ms QRS Dur : 082 ms QT Int : 382 ms P-R-T Axes : 072 044 040 degrees QTc Int : 448 ms Sinus rhythm with 1st degree A-V block Otherwise normal ECG Confirmed by KATIE PRAJAPATI, JAYLIN ([id number]), assistant film editor GALINDO SHEPPARD ([id number]) on 07/07/2024 8:05:16 AM Referred By: SPEEDY Confirmed By:JAYLIN WILSON MD
--- NOTE | 2024-07-05 09:22 | CT_ITS ---
EXAM: CT HEAD AND CERVICAL SPINE WITHOUT INTRAVENOUS CONTRAST CLINICAL INDICATION: Syncope TECHNIQUE: Helically acquired images were obtained of the head/brain and cervical spine without intravenous contrast. 2D reformatted images were reviewed. This CT exam was performed using one or more of the following dose reduction techniques: automated exposure control, adjustment of the mA and/or kV according to patient size, and/or use of iterative reconstruction technique. COMPARISON: CT head and CT angiogram head and neck dated 05/07/2018. FINDINGS: BRAIN AND EXTRA-AXIAL SPACES: Chronic ischemic changes in the right middle cerebral artery distribution and in the left parieto-occipital region with associated cephalization gliosis as well as ex vacuo enlargement of the adjacent CSF spaces. There is non-specific periventricular hypoattenuation which is most commonly related to chronic microvascular ischemic disease in a patient of this age. There is no mass, mass-effect, or shift of the midline structures. No evidence of acute infarct or acute intracranial hemorrhage. There is no evidence of pathologic extra-axial fluid. There is no hydrocephalus. Patent basal cisterns. Posterior fossa structures are unremarkable. SKULL: No significant abnormality. No discrete lytic or blastic abnormalities. SINUSES: No significant findings. MASTOID AIR CELLS: No significant abnormality. Clear. ORBITS: Bilateral ocular lens extraction presumptively for the treatment of cataracts. Otherwise, no acute orbital pathology. VERTEBRAE: Multilevel facet, uncovertebral joint, and endplate osteophytosis. No fracture. No traumatic subluxation. No discrete lytic or blastic abnormality. Normal alignment. Aside from degenerative changes, normal craniocervical junction and cervicothoracic junction. DISCS/SPINAL CANAL/NEURAL FORAMINA: Mild to moderate multilevel spinal canal stenosis. Multilevel intervertebral disc height loss. Mild to moderate multilevel neural foraminal narrowing. SOFT TISSUES: No significant abnormality. No prevertebral soft tissue swelling. VASCULATURE: Arteriosclerosis. Vascular calcifications in the neck. LYMPH NODES: No significant abnormality. No cervical adenopathy. LUNG APICES: Scarring and/or consolidative airspace disease in the right upper lobe and apparent scarring in the left apex. CT/Spine Cervical without Contras IMPRESSION: 1. No CT evidence of acute intracranial pathology or acute injury of the cervical spine. 2. Chronic ischemic changes. 3. Degenerative changes in the cervical spine. 4. Scarring and/or consolidative airspace disease in the right upper lobe and apparent scarring in the left apex. Electronically Signed: Josse Morales DO at 11:00 EDT ,
--- NOTE | 2024-07-05 09:22 | RAD_ITS ---
EXAM: XR CHEST, 1 VIEW CLINICAL INDICATION: Syncope. Pain. TECHNIQUE: Frontal view of the chest. COMPARISON: 11/29/2023 FINDINGS: LUNGS AND PLEURAL SPACES: No significant abnormality. No consolidation or edema. No pneumothorax. No effusion. HEART: No significant abnormality. Cardiac silhouette not enlarged. MEDIASTINUM: Central airways and mediastinal contour are unremarkable. BONES/JOINTS: Degenerative changes in the spine and shoulders. No acute fracture. SOFT TISSUES: No significant abnormality. VASCULATURE: Atherosclerosis. IMPRESSION: No acute findings in the chest. EXAM: XR THORACIC SPINE, 3 VIEWS CLINICAL INDICATION: Syncope TECHNIQUE: Frontal, lateral and swimmer''s views of the thoracic spine. COMPARISON: No relevant prior studies available. FINDINGS: VERTEBRAE: Multilevel facet arthrosis and endplate osteophytosis. No spondylolisthesis. Preservation of the normal thoracic kyphosis. No fracture or traumatic subluxation. DISC SPACES: Multilevel mild intervertebral disc height loss. IMPRESSION: No fracture or traumatic subluxation. Degenerative changes. EXAM: XR LUMBOSACRAL SPINE, 2 OR 3 VIEWS CLINICAL INDICATION: Syncope TECHNIQUE: Frontal and lateral views of the lumbar spine and sacrum. COMPARISON: No relevant prior studies available. FINDINGS: VERTEBRAE: Multilevel facet arthrosis and endplate osteophytosis. Apparent degenerative anterolisthesis of L4 upon L5 secondary to facet arthrosis. No spondylolisthesis. Preservation of the normal lumbar lordosis. No fracture in the lumbar spine. DISC SPACES: Mild multilevel disc height loss. VASCULATURE: Vascular calcifications. GASTROINTESTINAL TRACT: Normal as visualized. Included bowel gas pattern is non-obstructive. RAD/Lumbar Spine 2 or 3 Views IMPRESSION: No fracture in the lumbar spine. Degenerative changes as above. Electronically Signed: Josse Morales DO at 11:15 EDT ,
--- NOTE | 2024-07-05 09:22 | RAD_ITS ---
EXAM: XR CHEST, 1 VIEW CLINICAL INDICATION: Syncope. Pain. TECHNIQUE: Frontal view of the chest. COMPARISON: 11/29/2023 FINDINGS: LUNGS AND PLEURAL SPACES: No significant abnormality. No consolidation or edema. No pneumothorax. No effusion. HEART: No significant abnormality. Cardiac silhouette not enlarged. MEDIASTINUM: Central airways and mediastinal contour are unremarkable. BONES/JOINTS: Degenerative changes in the spine and shoulders. No acute fracture. SOFT TISSUES: No significant abnormality. VASCULATURE: Atherosclerosis. IMPRESSION: No acute findings in the chest. EXAM: XR THORACIC SPINE, 3 VIEWS CLINICAL INDICATION: Syncope TECHNIQUE: Frontal, lateral and swimmer''s views of the thoracic spine. COMPARISON: No relevant prior studies available. FINDINGS: VERTEBRAE: Multilevel facet arthrosis and endplate osteophytosis. No spondylolisthesis. Preservation of the normal thoracic kyphosis. No fracture or traumatic subluxation. DISC SPACES: Multilevel mild intervertebral disc height loss. IMPRESSION: No fracture or traumatic subluxation. Degenerative changes. EXAM: XR LUMBOSACRAL SPINE, 2 OR 3 VIEWS CLINICAL INDICATION: Syncope TECHNIQUE: Frontal and lateral views of the lumbar spine and sacrum. COMPARISON: No relevant prior studies available. FINDINGS: VERTEBRAE: Multilevel facet arthrosis and endplate osteophytosis. Apparent degenerative anterolisthesis of L4 upon L5 secondary to facet arthrosis. No spondylolisthesis. Preservation of the normal lumbar lordosis. No fracture in the lumbar spine. DISC SPACES: Mild multilevel disc height loss. VASCULATURE: Vascular calcifications. GASTROINTESTINAL TRACT: Normal as visualized. Included bowel gas pattern is non-obstructive. RAD/Thoracic Spine 3 Views IMPRESSION: No fracture in the lumbar spine. Degenerative changes as above. Electronically Signed: Josse Morales DO at 11:14 EDT ,
[2024-07-05 10:09] LABS: Absolute Lymphocyte Count 1.34 X10^3/uL (0.83-4.51); Absolute Neutrophil Count 17.9 X10^3/uL (2.0-7.7); Basophil# 0.05 X10^3/uL; Basophil% 0.2 % (0-1); Eosinophil# 0.03 X10^3/uL; Eosinophils% 0.1 % (0-5); Hematocrit 40.7 % (37-47); Hemoglobin 13.3 g/dL (12.0-15.0); Lymphocyte # 1.34 X10^3/ul (0.83-4.51); Lymphocyte % 6.5 % (19-41); Mean Corp Hgb Conc 32.7 g/dL (32-36); Mean Corpuscular Hgb 31.7 pg (27.0-32.0); Mean Corpuscular Volume 97.1 fL (81-99); Mean Platelet Vol. 10.9 fl (6.2-12.0); Monocyte# 1.23 X10^3/uL; NRBC Flagged by Analyzer 0 % (0-5); Neutrophil % 86.6 % (47-70); Platelet Count 267 K/mm3 (150-450); RBC Distribution Width CV 12.2 % (11.6-14.6); RBC Distribution Width SD 43.6 fl (35.1-43.9); Red Blood Count 4.19 M/mm3 (4.2-5.4); White Blood Count 20.7 K/mm3 (4.4-11.0)
[2024-07-05 10:17] LABS: International Normalized Ratio 1.2; Prothrombin Time (Protime)PT. 15.2 SECONDS (11.7-14.9)
[2024-07-05 10:18] LABS: Partial Thromboplast Time 27.6 Seconds (24.1-36.2)
[2024-07-05] MEDS: 0.9% Normal Saline (1000mL) 1,000 ML 1000 ML IV (10:24)
[2024-07-05 10:26] LABS: Anion Gap 6 (5-15); BUN 21 mg/dL (7-18); BUN/Creat Ratio 26.4 RATIO (10-20); Chloride 109 mmol/L (98-107); EST Glomerular Filtration Rate 73 mL/min (>60); Est Glom Filt Rate - Afr Amer 89 mL/min (>60); Estimated Creatinine Clearance 54.91 ml/min; Glucose 127 mg/dL (74-106); Potassium 3.9 mmol/L (3.5-5.1); Sodium Level 139 mmol/L (136-145); Troponin-I HS (w/2H Reflex) 18 pg/mL (3.0-54.0)
[2024-07-05 12:06] LABS: Reflex Troponin-HS? (from REC) Y
[2024-07-05 12:45] LABS: Mucous, Urine 0 SEEN /hpf (<or=2+); Red Blood Cells-Urine 0 SEEN /hpf (0-5); Squamous Epithelial Cells - UA 0 SEEN /hpf (5-10)
[2024-07-05 12:51] LABS: Color, Urine Yellow (Yellow); Glucose, Dipstick Normal (Normal); Ketone-Dipstick 15 mg/dl (Negative); Leukocyte Esterase-Dipstick 25 /ul (Negative); Nitrite-Dipstick Positive (Negative); Occult Blood-Urine Negative /ul (Negative); Protein-Dipstick 15 mg/dl (Negative); Specific Gravity, Urine 1.015 (1.002-1.030); Urine Bilirubin Dipstick Negative (Negative); Urine Clarity Clear (Clear); Urine Urobilinogen Normal (Normal)
[2024-07-05 12:57] LABS: Bacteria 1+ /hpf (None Seen); White Blood Cells 0-5 SEEN /hpf (0-5)
[2024-07-05 13:06] LABS: Troponin-I HS 17 pg/mL (3.0-54.0)
--- NOTE | 2024-07-05 14:44 | HP.PCM.HOS_ITS ---
HPI - General General Date of Admission: 07/05/24 Date of Service: 07/05/24 Chief Complaint: Syncope HPI Narrative HENRY DEGROOT, is a 84 F with a significant history of hypertension, paroxysmal A- fib CVA, and seizure disorder who presents with syncope. Before the syncope she had lightheadedness and presyncope. Her symptoms happened in the shower room and the shower was dripping on her. She kept yelling. After her fall her family who lives at the basement came in and check on her and found her on the shower floor with water dripping on her. [facility] Medical History (Updated 07/05/24 @ 23:[address] Brandt Mcfadden MD) Seizure Paroxysmal atrial fibrillation Macular degeneration Left hemiparesis Cerebrovascular disease Gammopathy 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 Snoring Acute right MCA stroke (02/08/16) Obesity (BMI 30.0-34.9) Home Medications ?Medication ?Instructions ?Recorded ?Last Taken ?Type vit C 250 mg-vit E 90 mg-zinc 40 1 ea PO BID eye vitamin 05/07/18 Unknown History mg-copper 1 qz-tubots-heregk capsule levetiracetam 500 mg tablet 500 mg PO .COMPLEX 10/20/18 Unknown History [place] Q Plus 2 tab PO DAILY 07/13/19 Unknown History apixaban 5 mg tablet 5 mg PO BID blood thinner #180 tabs 12/04/19 Unknown Rx acetaminophen 325 mg tablet 325 mg PO Q6H PRN PRN Mild Pain 01/12/21 Unknown History (0-310)/Headache pravastatin 10 mg tablet 10 mg PO .COMPLEX 01/12/21 Unknown History calcium carb 133 mg-vitD3 133 1 cap PO DAILY 02/08/22 Unknown History unit-mag amino acid chelate 67mg capsule (Coral Calcium) cholecalciferol (vitamin D3) 25 25 mcg PO DAILY 02/08/22 Unknown History mcg (1,000 unit) chewable tablet duloxetine 30 mg capsule,delayed 30 mg PO BID 02/08/22 Unknown History release (Cymbalta) denosumab 60 mg/mL subcutaneous 60 mg subcut [id number] 05/02/23 Unknown History syringe (Prolia) metoprolol succinate 25 mg 12.5 mg (1/2 x 25 mg) PO DAILY 01/16/24 Unknown Rx tablet,extended release 24 hr blood pressure #45 tabs pegcetacoplan (PF) 15 mg/0.1 mL 15 mg intravitreal .[id number] 07/05/24 Unknown History intravitreal solution (Syfovre (PF)) Allergy/AdvReac Type Severity Reaction Status Date / Time No Known Allergies Allergy Verified 07/05/24 08:22 Family History Father CAD (coronary artery disease) Aunt Breast cancer Sister Uterine cancer Surgical History S/P laser cataract surgery History of bilateral cataract extraction History of colonoscopy History of total mastectomy of right breast Social History household members: family Smoking Status: Never smoker substance use type: does not use ROS ROS Narrative Pertinent positives and pertinent negatives as noted in HPI. All other systems were reviewed and are negative Vital Signs Vital Signs Vital Signs: 07/05/24 08:21 07/05/24 10:21 07/05/24 12:00 Temperature 96.5 F L Temperature Source Temporal Pulse Rate 85 88 92 Respiratory Rate 26 H 11 L 21 H Blood Pressure 97/63 150/84 H 118/71 Blood Pressure Mean 74 106 86 Pulse Ox 85 100 93 Oxygen Delivery Method Room Air Room Air Room Air 07/05/24 14:00 07/05/24 14:29 Temperature 98.9 F Temperature Source Pulse Rate 64 83 Respiratory Rate 18 16 Blood Pressure 119/76 124/71 H Blood Pressure Mean 90 88 Pulse Ox 98 98 Oxygen Delivery Method Room Air Weight Weight: 87.5 kg Body Mass Index (BMI) 34.2 Physical Exam Narrative Physical exam: General: Well-nourished, well-developed. Head: Normocephalic, atraumatic, no tenderness Eyes: Vision is grossly intact. EOMI ENT, no trauma, moist mucous membranes, no rhinorrhea Neck: Nontender, No thyromegaly. CVS: Regular rate and rhythm. S1-S2 present. No murmur, gallop or rub. Respiratory : Rhonchi Abdomen: Soft, nontender, nondistended, normal bowel sounds, no masses : Deferred Back: Nontender, no CVA tenderness, no midline spinal tenderness, deformities, step-offs Extremities: Right lower back with ecchymosis; full range of motion of all extremities Skin: Normal color, no trauma, abrasions Neuro: Alert, oriented, cranial nerves II through XII grossly intact. Psychiatry: Normal mood. Normal affect. Not depressed. Not anxious. Results Lab / Micro Data Attestation: I reviewed the patient's lab results. 07/05/24 10:01 07/05/24 10:01 Labs: Laboratory Results - last 24 hr 07/05/24 10:01: WBC 20.7 H, RBC 4.19 L, Hgb 13.3, Hct 40.7, MCV 97.1, MCH 31.7, MCHC 32.7, RDW Std Deviation 43.6, RDW Coeff of Rich 12.2, Plt Count 267, MPV 10.9, Immature Gran % (Auto) 0.600, Neut % (Auto) 86.6 H, Lymph % (Auto) 6.5 L, [place] % (Auto) 6.0, Eos % (Auto) 0.1, Baso % (Auto) 0.2, Absolute Neuts (auto) 17.9 H, Absolute Lymphs (auto) 1.34, Nucleated RBC % 0, PT 15.2 H, INR 1.2, APTT 27.6, Sodium 139, Potassium 3.9, Chloride 109 H, Carbon Dioxide 24.0, Anion Gap 6, BUN 21 H, Creatinine 0.80, Estim Creat Clear Calc 54.91, Est GFR (MDRD) Af Amer 89, Est GFR (MDRD) Non-Af 73, BUN/Creatinine Ratio 26.4 H, Glucose 127 H, Calcium 9.0, Troponin I High Sens 18 07/05/24 12:36: Urine Color Yellow, Urine Clarity Clear, Urine pH 7.0, Ur Specific Randolph 1.015, Urine Protein 15 H, Urine Glucose (UA) Normal, Urine Ketones 15 H, Urine Occult Blood Negative, Urine Nitrite Positive H, Urine Bilirubin Negative, Urine Urobilinogen Normal, Ur Leukocyte Esterase 25 H, Urine RBC 0 SEEN, Urine WBC 0-5 SEEN, Ur Squamous Epith Cells 0 SEEN, Urine Bacteria 1+, Urine Mucus 0 SEEN 07/05/24 12:43: Troponin I High Sens 17 Imaging Radiology Impression Brain CT 07/05/24 09:20 IMPRESSION: 1. No CT evidence of acute intracranial pathology or acute injury of the cervical spine. 2. Chronic ischemic changes. 3. Degenerative changes in the cervical spine. 4. Scarring and/or consolidative airspace disease in the right upper lobe and apparent scarring in the left apex. Electronically Signed: Josse Morales at 11:00 EDT , Chest X-Ray 07/05/24 09:20 IMPRESSION: No fracture in the lumbar spine. Degenerative changes as above. Electronically Signed: Josse MoralesDO at 11:14 EDT , Cervical Spine CT 07/05/24 09:22 IMPRESSION: 1. No CT evidence of acute intracranial pathology or acute injury of the cervical spine. 2. Chronic ischemic changes. 3. Degenerative changes in the cervical spine. 4. Scarring and/or consolidative airspace disease in the right upper lobe and apparent scarring in the left apex. Electronically Signed: Josse ColemanDO kathrin at 11:00 EDT , Lumbar Spine X-Ray 07/05/24 09:22 IMPRESSION: No fracture in the lumbar spine. Degenerative changes as above. Electronically Signed: Josse ColemanDO kathrin at 11:15 EDT , Thoracic Spine X-Ray 07/05/24 09:22 IMPRESSION: No fracture in the lumbar spine. Degenerative changes as above. Electronically Signed: Josse AllenMelo Maria Del CarmenDO gustabo at 11:14 EDT , Assessment & Plan Assessment/Plan (1) Syncope and collapse: (2) Acute cervical myofascial strain: QUALIFIERS: Encounter type: initial encounter Qualified Code(s): S16.1XXA - Strain of muscle, fascia and tendon at neck level, initial encounter (3) Closed head injury: QUALIFIERS: Encounter type: initial encounter Qualified Code(s): S09.90XA - Unspecified injury of head, initial encounter (4) Paroxysmal atrial fibrillation: (5) Neutrophilia: (6) Hypercoagulable state due to atrial fibrillation: QUALIFIERS: Atrial fibrillation type: longstanding persistent Q ualified Code(s): D68.69 - Other thrombophilia; I48.11 - Longstanding persistent atrial fibrillation (7) Seizure: PLAN: Plan Last echocardiogram was in 2019. Echocardiogram ordered. EKG independently interpreted. Showed first-degree AV block. Hold metoprolol. IV fluids ordered. Initial chest x-ray independently interpreted by myself did not show opacity. With rhonchi. With leukocytosis. Presume pneumonia. Azithromycin and ceftriaxone ordered. Repeat chest x-ray in AM. Check procalcitonin. UA is unremarkable. ED physician to order an urine culture. Oxycodone PRN Ordered for pain. Keppra for seizure continued. Eliquis for A-fib continue Advance care planning: Discussed with patient and family advanced directives as well as CODE STATUS. Explained various CODE STATUS: FULL CODE, DNR CCA, DNR CCA with no intubation, and DNR CC- and what each meant. Patient elected to be a full code with CPR and intubation if warranted. Order was placed. Surrogate decision maker is BEBE Lezama. Time spent on discussion 16 minutes. Time spent in the patient's overall evaluation,decision-making process, review of diagnostic data, adjustment of management, discussion with other providers, nursing and ancillary staff involved in patient's care documentation, 70 minutes. Charges/Coding Visit Charges Inpatient E&M: 40174 Init Hosp L3 Procedures Hospitalists Procedures: [id number] Advncd Care Plan 30 Min
--- NOTE | 2024-07-05 16:13 | ECHOD_ITS ---
Reason For Study: Syncope Procedure This was a 2D Doppler, Color Flow transthoracic echocardiogram. Exam performed portable in patient room. Left Ventricle Normal left ventricle. The estimated ejection fraction is 55-60 %. Right Ventricle Normal right ventricle. Normal systolic function. Atria The left atrium is mildly enlarged. Normal right atrium. Mitral Valve There is mild to moderate mitral annular calcification. Trivial mitral valve insufficiency. Tricuspid Valve Normal tricuspid valve. Trivial tricuspid valve insufficiency. Aortic Valve Mild diffuse aortic valve calcification. Mild (1+) aortic valve insufficiency. Pulmonic Valve The pulmonic valve is not well visualized. Great Vessels Normal aortic root. Pericardium/Pleural No pericardial effusion. MMode/2D Measurements & Calculations LVIDd: 3.9 cm IVSd: 1.2 cm Ao root diam: 2.8 cm LVIDs: 2.4 cm LVPWd: 0.89 cm LA dimension: 4.2 cm RVDd: 3.4 cm FS: 37.8 % LAV(MOD-bp): 48.2 ml LA A4 area: 20.0 cm2 RA A4 area: 9.2 cm2 LAV(MOD-bp) Indexed: 26.7 ml/m2 LAV(MOD-sp2): 44.6 ml LAV(MOD-sp4): 52.0 ml TAPSE: 1.7 cm Time Measurements MV dec time: 0.24 sec Doppler Measurements & Calculations MV E max manav: 95.7 cm/sec Lat Peak E' Manav: 16.9 cm/sec Med Peak E' Manav: 14.8 cm/sec MV A max manav: 97.5 cm/sec E/E' lat: 5.7 E/E' med: 6.5 MV E/A: 0.98 MV V2 max: 104.1 cm/sec MV P1/2t max manav: 104.8 cm/sec Ao V2 max: 152.4 cm/sec MV max P.3 mmHg MV P1/2t: 78.8 msec Ao max P.3 mmHg MV V2 mean: 62.3 cm/sec Ao V2 mean: 106.0 cm/sec MV mean P.8 mmHg MV dec slope: 389.7 cm/sec2 Ao mean P.1 mmHg MV V2 VTI: 23.6 cm MVA(P1/2t): 2.8 cm2 Ao V2 VTI: 32.9 cm AV (velocity ratio): 0.73 LV V1 max: 108.3 cm/sec PA V2 max: 84.0 cm/sec TR max manav: 249.8 cm/sec LV V1 max P.7 mmHg TR max P.0 mmHg LV V1 mean P.5 mmHg LV V1 mean: 73.4 cm/sec LV V1 VTI: 24.0 cm ECHO/Echo Complete Interpretation Summary The estimated ejection fraction is 55-60 %. LV solid function preserved No significant change from previous echo in December 2019. Ordering Physician: Brandt Mcfadden Performed By: Landon Colunga RCS
[2024-07-05 16:22] LABS: Procalcitonin 0.08 ng/mL (0.00-0.09)
[2024-07-05] MEDS: 0.9% Normal Saline (1000mL) 1,000 ML 100 ML IV (17:27)
[2024-07-05] MEDS: Acetaminophen 325 MG Tablet 650 MG PO (17:28)
[2024-07-05] MEDS: Ceftriaxone 1 GM/50 ML BAG IV (17:28)
[2024-07-05] MEDS: Azithromycin 500 MG in Dextrose 5%-Water (250mL Bag) 250 ML 250 MG IV (18:11)
[2024-07-05] MEDS: MELATONIN 3 MG TABLET PO (21:24)
[2024-07-05] MEDS: levETIRAcetam 250 MG Tablet 500 MG PO (21:24)
[2024-07-06 04:28] VITALS: BP 114/65; BP 129/75; BP 131/87; PULSE 101; PULSE 87; PULSE 88
[2024-07-06] MEDS: 0.9% Normal Saline (1000mL) 1,000 ML 100 ML IV (04:28)
[2024-07-06 04:30] VITALS: BP 129/75; PULSE 88; RESP 15; TEMP 36.8; O2SAT 98
[2024-07-06 05:41] LABS: Absolute Lymphocyte Count 2.42 X10^3/uL (0.83-4.51); Absolute Neutrophil Count 5.9 X10^3/uL (2.0-7.7); Basophil# 0.03 X10^3/uL; Basophil% 0.3 % (0-1); Eosinophil# 0.17 X10^3/uL; Eosinophils% 1.8 % (0-5); Hemoglobin 12.3 g/dL (12.0-15.0); Lymphocyte # 2.42 X10^3/ul (0.83-4.51); Lymphocyte % 25.1 % (19-41); Mean Corp Hgb Conc 32.4 g/dL (32-36); Mean Corpuscular Hgb 32.2 pg (27.0-32.0); Mean Corpuscular Volume 99.5 fL (81-99); Mean Platelet Vol. 11.5 fl (6.2-12.0); Monocyte# 1.11 X10^3/uL; Monocyte% 11.5 % (0-10); NRBC Flagged by Analyzer 0 % (0-5); Neutrophil # 5.88 X10^3/uL (2.7-7.7); Neutrophil % 60.9 % (47-70); Platelet Count 272 K/mm3 (150-450); RBC Distribution Width CV 12.5 % (11.6-14.6); RBC Distribution Width SD 44.9 fl (35.1-43.9); Red Blood Count 3.82 M/mm3 (4.2-5.4); White Blood Count 9.7 K/mm3 (4.4-11.0)
[2024-07-06 06:04] LABS: Anion Gap 5 (5-15); BUN 14 mg/dL (7-18); BUN/Creat Ratio 22.3 RATIO (10-20); Calcium,Total 8.7 mg/dL (8.5-10.1); Chloride 109 mmol/L (98-107); Creatinine, Serum 0.63 mg/dL (0.55-1.02); EST Glomerular Filtration Rate 96 mL/min (>60); Est Glom Filt Rate - Afr Amer 116 mL/min (>60); Estimated Creatinine Clearance 54.98 ml/min; Glucose 98 mg/dL (74-106); Potassium 3.6 mmol/L (3.5-5.1); Sodium Level 139 mmol/L (136-145)
--- NOTE | 2024-07-06 06:40 | RAD_ITS ---
EXAM: XR CHEST, 1 VIEW CLINICAL INDICATION: rhonchi rhonchi TECHNIQUE: Frontal view of the chest. COMPARISON: Chest x-ray 07/05/2024 and 11/29/2023 FINDINGS: LUNGS AND PLEURAL SPACES: Chronic fibrotic changes in the right lung apex. No pneumothorax. No effusion. HEART: Unremarkable. Cardiac silhouette not enlarged. MEDIASTINUM: Central airways and mediastinal contour are unremarkable. BONES/JOINTS: There are multilevel degenerative changes in the visualized spine. No acute fracture. SOFT TISSUES: Unremarkable. UPPER ABDOMEN: There is chronic elevation of the right hemidiaphragm. RAD/Chest 1 View (Portable) IMPRESSION: No acute findings in the chest. Electronically Signed: Imer Taylor MD at 7:46 EDT Reading Location ID and State: [facility] , Service support ,
[2024-07-06] MEDS: Acetaminophen 325 MG Tablet 650 MG PO (08:40)
[2024-07-06] MEDS: oxyCODONE 5 MG Tablet PO (08:41)
--- NOTE | 2024-07-06 09:52 | PN.HOSP_ITS ---
Reason for Visit Reason for Visit: Diagnoses Other thrombophilia (07/05/24) Disorder of white blood cells, unspecified (07/05/24) Paroxysmal atrial fibrillation (07/05/24) Longstanding persistent atrial fibrillation (07/05/24) Syncope and collapse (07/05/24) Unspecified convulsions (07/05/24) Unspecified injury of head, initial encounter (07/05/24) Strain of muscle, fascia and tendon at neck level, initial encounter (07/05/24) Subjective Subjective Patient was seen and examined today, I talked to nursing and they state that she has a maximal assist getting up to walk. Patient lives in apartment by herself, she states that when she takes a shower she uses grab bars and not shower chair. Patient states that she feels she passed out in the shower. Objective Data Objective Data Vital Signs: Vital Signs Temp Pulse Resp BP Pulse Ox O2 Del Method 98.2 F 88 15 129/75 H 98 Room Air 07/06/24 04:30 07/06/24 04:30 07/06/24 04:30 07/06/24 04:30 07/06/24 04:30 07/06/24 08:00 Oxygen Delivery Method Room Air Weight: 77.383 kg Body Mass Index (BMI) 27.5 Intake & Output: Intake and Output for Last 24 Hours 07/04/24 07/05/24 07/06/24 23:59 23:59 23:59 Intake Total 1290 / 1290 1255 / 1255 Output Total 300 / 300 Balance 1290 / 1290 955 / 955 Lab / Micro Data 07/06/24 04:29 07/06/24 04:29 Labs: Laboratory Results - last 24 hr 07/05/24 10:01: WBC 20.7 H, RBC 4.19 L, Hgb 13.3, Hct 40.7, MCV 97.1, MCH 31.7, MCHC 32.7, RDW Std Deviation 43.6, RDW Coeff of Rich 12.2, Plt Count 267, MPV 10.9, Immature Gran % (Auto) 0.600, Neut % (Auto) 86.6 H, Lymph % (Auto) 6.5 L, [place] % (Auto) 6.0, Eos % (Auto) 0.1, Baso % (Auto) 0.2, Absolute Neuts (auto) 17.9 H, Absolute Lymphs (auto) 1.34, Nucleated RBC % 0, PT 15.2 H, INR 1.2, APTT 27.6, Sodium 139, Potassium 3.9, Chloride 109 H, Carbon Dioxide 24.0, Anion Gap 6, BUN 21 H, Creatinine 0.80, Estim Creat Clear Calc 54.91, Est GFR (MDRD) Af Amer 89, Est GFR (MDRD) Non-Af 73, BUN/Creatinine Ratio 26.4 H, Glucose 127 H, Calcium 9.0, Troponin I High Sens 18 07/05/24 12:36: Urine Color Yellow, Urine Clarity Clear, Urine pH 7.0, Ur Specific [place] 1.015, Urine Protein 15 H, Urine Glucose (UA) Normal, Urine Ketones 15 H, Urine Occult Blood Negative, Urine Nitrite Positive H, Urine Bilirubin Negative, Urine Urobilinogen Normal, Ur Leukocyte Esterase 25 H, Urine RBC 0 SEEN, Urine WBC 0-5 SEEN, Ur Squamous Epith Cells 0 SEEN, Urine Bacteria 1+, Urine Mucus 0 SEEN 07/05/24 12:43: Troponin I High Sens 17 07/05/24 15:47: Procalcitonin 0.08 07/06/24 04:29: WBC 9.7, RBC 3.82 L, Hgb 12.3, Hct 38.0, MCV 99.5 H, MCH 32.2 H, MCHC 32.4, RDW Std Deviation 44.9 H, RDW Coeff of Rich 12.5, Plt Count 272, MPV 11.5, Immature Gran % (Auto) 0.400, Neut % (Auto) 60.9, Lymph % (Auto) 25.1, M david % (Auto) 11.5 H, Eos % (Auto) 1.8, Baso % (Auto) 0.3, Absolute Neuts (auto) 5.9, Absolute Lymphs (auto) 2.42, Nucleated RBC % 0, Sodium 139, Potassium 3.6, Chloride 109 H, Carbon Dioxide 25.0, Anion Gap 5, BUN 14, Creatinine 0.63, Estim Creat Clear Calc 54.98, Est GFR (MDRD) Af Amer 116, Est GFR (MDRD) Non-Af 96, B UN/Creatinine Ratio 22.3 H, Glucose 98, Calcium 8.7 Radiography Diagnostic Testing: Radiology Impression Brain CT 07/05/24 09:20 IMPRESSION: 1. No CT evidence of acute intracranial pathology or acute injury of the cervical spine. 2. Chronic ischemic changes. 3. Degenerative changes in the cervical spine. 4. Scarring and/or consolidative airspace disease in the right upper lobe and apparent scarring in the left apex. Electronically Signed: Josse MoralesDO at 11:00 EDT , Chest X-Ray 07/05/24 09:20 IMPRESSION: No fracture in the lumbar spine. Degenerative changes as above. Electronically Signed: Josse JoyceDO gustabo at 11:14 EDT , Cervical Spine CT 07/05/24 09:22 IMPRESSION: 1. No CT evidence of acute intracranial pathology or acute injury of the cervical spine. 2. Chronic ischemic changes. 3. Degenerative changes in the cervical spine. 4. Scarring and/or consolidative airspace disease in the right upper lobe and apparent scarring in the left apex. Electronically Signed: Josse JoyceDO gustabo at 11:00 EDT , Lumbar Spine X-Ray 07/05/24 09:22 IMPRESSION: No fracture in the lumbar spine. Degenerative changes as above. Electronically Signed: Josse MoralesDO at 11:15 EDT , Thoracic Spine X-Ray 07/05/24 09:22 IMPRESSION: No fracture in the lumbar spine. Degenerative changes as above. Electronically Signed: Josse Morales DO at 11:14 EDT , Chest X-Ray 07/06/24 06:40 IMPRESSION: No acute findings in the chest. Electronically Signed: Imer Taylor MD at 7:46 EDT , Physical Exam Const alert, oriented x3, no apparent distress and healthy appearing Constitutional Narrative: Patient appears her stated age General Appearance: cooperative, well kempt and well developed Orientation / Consciousness: awake, oriented to person, oriented to place and oriented to time HEENT normocephalic, head/scalp atraumatic and moist oral mucous membranes Eyes PERRL, EOMs intact bilaterally and conjunctivae normal Neck supple, no JVD, thyroid normal and no carotid bruits General: trachea midline Resp normal respiratory effort, no retractions, no use of accessory muscles and clear to auscultation bilaterally Auscultation: Negative for rales, rhonchi or wheezes Cardio regular rate, regular rhythm, S1 normal heart sound, S2 normal heart sound, no murmurs, no rub and no gallops GI normal to inspection, nondistended, normoactive bowel sounds, soft to palpation, non-tender and non-distended Extremity no clubbing, cyanosis or edema Skin no rashes or lesions noted General Skin Exam: no breakdown Neuro oriented x3, CN's II-XII intact bilaterally, moves all extremities, no focal motor deficits and no sensory deficits noted Sensorium / Orientation: awake and alert Speech: speech normal Psych affect normal Assessment & Plan Assessment/Plan (1) Syncope and collapse: PLAN: Plan 1. Syncope-etiology unclear at this point, continue to monitor patient on telemetry, PT and OT are seeing patient, she may need short-term placement in the [facility] facility. #2 paroxysmal [id number] is on Eliquis and on rate limiting agents #3 seizure disorder-patient is on Keppra #4 hyperlipidemia-patient is on pravastatin I do not feel the patient has pneumonia, I canceled her Rocephin and Zithromax, her white blood cell count today is normal. Total clinical time spent by myself addressing patient's medical issues, reviewing all of her data, and collaborating with patient's care team: 35 minutes Charges/Coding Visit Charges Inpatient E&M: 44393 Subs Hosp L2
[2024-07-06] MEDS: levETIRAcetam 250 MG Tablet PO (10:35)
[2024-07-06] MEDS: Cholecalciferol (VIT D3) 25 MCG TABLET (1,000 UNITS) PO (10:36)
[2024-07-06] MEDS: DULoxetine Hcl 30 MG Capsule PO ×2 (10:36→21:48)
[2024-07-06] MEDS: Multivitamin (Healthy Eyes) Capsule 1 CAP PO ×2 (10:36→21:45)
[2024-07-06] MEDS: APIXABAN 5 MG TABLET PO ×2 (10:36→21:42)
[2024-07-06 10:56] VITALS: BP 124/53; PULSE 94; RESP 18; TEMP 36.4; O2SAT 95
[2024-07-06 11:23] VITALS: BP 124/53; PULSE 94
[2024-07-06] MEDS: Metoprolol(XL)Succ 25 MG Tablet 12.5 MG PO (11:23)
[2024-07-06] MEDS: Acetaminophen 500 MG Tablet 1000 MG PO ×2 (14:52→21:49)
[2024-07-06 21:02] VITALS: BP 142/100; PULSE 82; RESP 18; TEMP 36.6; O2SAT 100
[2024-07-06] MEDS: Pravastatin 20 MG Tablet 10 MG PO (21:44)
[2024-07-06] MEDS: levETIRAcetam 250 MG Tablet 500 MG PO (21:47)
[2024-07-07] VITALS (13 sets, daily range): BP systolic 88–139; BP diastolic 55–87; PULSE 90–135; RESP 16–20; TEMP 36.1–36.8; O2SAT 92–98
[2024-07-07] MEDS: oxyCODONE 5 MG Tablet 10 MG PO ×2 (03:29→21:48)
--- NOTE | 2024-07-07 03:40 | EKG12_ITS ---
Test Reason : RHYTHM CHANGE Blood Pressure : / mmHG Vent. Rate : 150 BPM Atrial Rate : 000 BPM P-R Int : 000 ms QRS Dur : 068 ms QT Int : 304 ms P-R-T Axes : 000 038 -64 degrees QTc Int : 480 ms Critical Test Result: High HR Atrial fibrillation with rapid ventricular response ST & T wave abnormality, consider inferior ischemia Abnormal ECG When compared with ECG of 05-JUL-2024 08:56, MANUAL COMPARISON REQUIRED, DATA IS UNCONFIRMED Confirmed by KATIE PRAJAPATI, JAYLIN ([id number]), film or videotape editor CAS CONTRERAS ([id number]) on 07/07/2024 10:34:10 AM Referred By: Confirmed By:JAYLIN WILSON MD
[2024-07-07] MEDS: Metoprolol Tartrate 5 MG/5 ML Vial IV (04:07)
[2024-07-07] MEDS: Metoprolol Tartrate 50 MG Tablet PO ×2 (06:09→08:34)
[2024-07-07] MEDS: Acetaminophen 500 MG Tablet 1000 MG PO ×3 (06:12→22:09)
[2024-07-07] MEDS: DULoxetine Hcl 30 MG Capsule PO ×2 (10:42→21:47)
[2024-07-07] MEDS: Multivitamin (Healthy Eyes) Capsule 1 CAP PO ×2 (10:42→21:47)
[2024-07-07] MEDS: levETIRAcetam 250 MG Tablet PO (10:42)
[2024-07-07] MEDS: APIXABAN 5 MG TABLET PO ×2 (10:42→21:47)
[2024-07-07] MEDS: Cholecalciferol (VIT D3) 25 MCG TABLET (1,000 UNITS) PO (10:42)
--- NOTE | 2024-07-07 11:45 | RAD_ITS ---
STUDY: X-RAY - UNILATERAL RIBS ( LEFT ) REASON FOR EXAM: Female, 84 years old. Pain. TECHNIQUE: 4 views of the left ribs. COMPARISON: None. FINDINGS: There are fractures of the left 9th and 10th ribs. The visualized lung is clear and expanded. RAD/Ribs Unil 2V No CXR IMPRESSION: Fractures of the left ninth and 10th ribs. Electronically Signed: Reagan Gallegos MD at 12:05 EDT ,
--- NOTE | 2024-07-07 12:18 | CASEMGMT ---
Therapy informed SW that patient needs to go somewhere short term for rehab. Per therapy patient and her daughter are in agreement. SW met with patient's daughter. Introduced self and role at [facility]. Patient's daughter confirmed patient needs to go somewhere short term for rehab. Patient then was wheeled into the room after she had an xray. SW provided them with a list of f[facility] facility providers including quality and resource use data and consistent with patient?s preferred geographic region, medical needs, and insurance network [facility] SW asked that they choose at least 3 preferences and SW will take care of contacting facilities etc. Patient's daughter wanted to wait on patient's other daughter to come in and decide on which places they prefer. SW to check back. Plan: SNF pending family choices, accepting facility, and pre-cert. Nicci Posadas COLLATOR HANDAntonina ZUÑIGA
[2024-07-07] MEDS: dilTIAZem 25 MG/5 ML Vial 20 MG IV BOLUS (12:32)
--- NOTE | 2024-07-07 16:31 | CASEMGMT ---
Met with patient to complete GUZMAN form. GUZMAN form explained to patient who voiced understanding and signed form. Original form placed in pt?s chart and copy provided to patient. Kaela Minor, Discharge Planning Asst
--- NOTE | 2024-07-07 17:00 | CASEMGMT ---
SW spoke with patient and her daughter. They were interested in [facility] vs [facility]. SW did tell them TCU does not have any beds at this time. A referral was sent to [facility] and they are able to take patient. There may have been a change in TCU. SW will talk with TCU tomorrow. Nicci Posadas ROBOTICS TECHNICIAN YOGESH
--- NOTE | 2024-07-07 17:08 | PN.CARD_ITS ---
Subjective Subjective Patient seen and evaluated. Appears to be doing well. Went into atrial fibrillation. Objective Data Vital Signs: Vital Signs Temp Pulse Resp BP Pulse Ox O2 Del Method 98.0 F 96 20 H 88/74 L 98 Room Air 07/07/24 15:19 07/07/24 15:19 07/07/24 15:19 07/07/24 15:19 07/07/24 15:19 07/07/24 15:19 Oxygen Delivery Method Room Air Weight: 170 lb 9.6 oz Body Mass Index (BMI) 27.5 Intake & Output: Intake and Output for Last 24 Hours 07/05/24 07/06/24 07/07/24 23:59 23:59 23:59 Intake Total 1290 / 1290 2835 / 2955 240 / 240 Output Total 950 / 950 1300 / 1300 Balance 1290 / 1290 1885 / 2005 -1060 / -1060 Lab / Micro Data 07/06/24 04:29 07/06/24 04:29 Micro: Microbiology 07/05/24 12:36 Urine, Random Urine Culture - Final Presumptive E. coli Cardiology Labs/Tests Rhythm: EKG: ECHO: Stress Test: Cardiac Cath: PCI: CT Surgery: Holter monitor: EPS: PPM: CXR: Chest CT Scan: Radiography Diagnostic Testing: Radiology Impression Ribs X-Ray 07/07/24 11:45 IMPRESSION: Fractures of the left ninth and 10th ribs. Electronically Signed: Reagan Gallegos MD at 12:05 EDT Reading Location ID and State: [address] [place] [address] , Service support , Physical Exam Const alert, oriented x3 and no apparent distress General Appearance: cooperative HEENT hearing grossly normal bilaterally Head and Scalp: atraumatic Eyes EOMs intact bilaterally Neck General: normal visual inspection Chest inspection of chest normal and palpation of chest normal Resp normal respiratory effort Auscultation: clear to auscultation bilaterally Cardio S1 normal heart sound and S2 normal heart sound Jugular Venous Distention: JVD Rhythm: abnormal rhythm irregularly irregular GI normal to inspection, nondistended, normoactive bowel sounds Extremity normal capillary refill and no pedal edema Peripheral Pulses: Yes pulses 2+ throughout and femoral pulses present Skin no rashes or lesions noted Neuro oriented x3 and CN's II-XII intact bilaterally Psych Appearance: grossly normal and appropriate Assessment & Plan Assessment/Plan (1) Paroxysmal atrial fibrillation: PLAN: She does have evidence of paroxysmal atrial fibrillation. She is currently somewhat tachycardic. My recommendation is to increase her beta- lucinda and see how she does. She will continue on the anticoagulation (2) Syncope and collapse: PLAN: I suspect her syncopal episode was secondary to the atrial fibrillation with a rapid ventricular response rate. Her echocardiogram demonstrated preserved left ventricular systolic function. We will continue to observe her and treat the underlying etiology.
--- NOTE | 2024-07-07 18:08 | PCM.PN.HOSP ---
Reason for Visit Reason for Visit: Diagnoses Other thrombophilia (07/05/24) Disorder of white blood cells, unspecified (07/05/24) Paroxysmal atrial fibrillation (07/05/24) Longstanding persistent atrial fibrillation (07/05/24) Syncope and collapse (07/05/24) Unspecified convulsions (07/05/24) Unspecified injury of head, initial encounter (07/05/24) Strain of muscle, fascia and tendon at neck level, initial encounter (07/05/24) Subjective Subjective Patient was seen and examined today, I talked briefly with her daughter, we have not yet received permission from her insurance carrier to transfer to a [facility] facility for rehab services. Objective Data Objective Data Vital Signs: Vital Signs Temp Pulse Resp BP Pulse Ox O2 Del Method 98.0 F 101 H 20 H 129/74 H 98 Room Air 07/07/24 15:19 07/07/24 17:34 07/07/24 15:19 07/07/24 17:34 07/07/24 15:19 07/07/24 15:19 Oxygen Delivery Method Room Air Weight: 77.383 kg Body Mass Index (BMI) 27.5 Intake & Output: Intake and Output for Last 24 Hours 07/05/24 07/06/24 07/07/24 23:59 23:59 23:59 Intake Total 1290 / 1290 2835 / 2955 240 / 240 Output Total 950 / 950 1300 / 1300 Balance 1290 / 1290 188 / 2005 -1060 / -1060 Lab / Micro Data 07/06/24 04:29 07/06/24 04:29 Micro: Microbiology 07/05/24 12:36 Urine, Random Urine Culture - Final Presumptive E. coli Radiography Diagnostic Testing: Radiology Impression Ribs X-Ray 07/07/24 11:45 IMPRESSION: Fractures of the left ninth and 10th ribs. Electronically Signed: Reagan Gallegos MD at 12:05 EDT , Physical Exam Narrative alert, oriented x3, no apparent distress and healthy appearing Constitutional Narrative: Patient appears her stated age General Appearance: cooperative, well kempt and well developed Orientation / Consciousness: awake, oriented to person, oriented to place and oriented to time HEENT normocephalic, head/scalp atraumatic and moist oral mucous membranes Eyes PERRL, EOMs intact bilaterally and conjunctivae normal Neck supple, no JVD, thyroid normal and no carotid bruits General: trachea midline Resp normal respiratory effort, no retractions, no use of accessory muscles and clear to auscultation bilaterally Auscultation: Negative for rales, rhonchi or wheezes Cardio regular rate, regular rhythm, S1 normal heart sound, S2 normal heart sound, no murmurs, no rub and no gallops GI normal to inspection, nondistended, normoactive bowel sounds, soft to palpation, non-tender and non-distended Extremity no clubbing, cyanosis or edema Skin no rashes or lesions noted General Skin Exam: no breakdown Neuro oriented x3, CN's II-XII intact bilaterally, moves all extremities, no focal motor deficits and no sensory deficits noted Sensorium / Orientation: awake and alert Speech: speech normal Psych affect normal Assessment & Plan Assessment/Plan (1) Syncope and collapse: PLAN: Plan 1. Syncope-etiology unclear at this point, continue to monitor patient on telemetry, PT and OT are seeing patient, we are awaiting approval for the patient to go to a [facility] facility for inpatient rehab services #2 paroxysmal [id number] is on Eliquis and on rate limiting agents #3 seizure disorder-patient is on Keppra #4 hyperlipidemia-patient is on pravastatin I do not feel the patient has pneumonia, Total clinical time spent by myself addressing patient's medical issues, reviewing all of her data, and collaborating with patient's care team: 35 minutes Charges/Coding Visit Charges Inpatient E&M: 75124 Subs Hosp L2
--- NOTE | 2024-07-07 18:34 | PCM.HOSP.N ---
Hospitalist Note Additional note: Patient has been and poorly controlled A-fib today, her metoprolol dose was increased by the night hospitalist, I will have to increase the dose further tonight if her blood pressure permits it.
[2024-07-07] MEDS: Metoprolol Tartrate 25 MG Tablet PO (18:58)
[2024-07-07] MEDS: Metoprolol Tartrate 100 MG Tablet PO (21:47)
[2024-07-07] MEDS: levETIRAcetam 250 MG Tablet 500 MG PO (21:49)
[2024-07-08] VITALS (7 sets, daily range): BP systolic 92–121; BP diastolic 48–68; PULSE 58–78; RESP 16–18; TEMP 36.2–36.5; O2SAT 94–97
--- NOTE | 2024-07-08 00:23 | PCM.HOSP.N ---
Hospitalist Note Patient with asymptomatic 8 second pause, sleeping at the time. Prior to this she had episode of what appears to be potentially PAF RVR short burst but uncertain. Will need to continue to closely monitor as recent BB notable increase which may need to be de-escalated. Cardiology consulted, awaiting their input.
[2024-07-08] MEDS: Acetaminophen 500 MG Tablet 1000 MG PO ×3 (06:10→20:51)
--- NOTE | 2024-07-08 07:54 | PCM.PN.CARD ---
Subjective Subjective Patient seen and evaluated. Doing well. Converted back to sinus rhythm. Objective Data Vital Signs: Vital Signs Temp Pulse Resp BP Pulse Ox O2 Del Method 97.3 F L 61 18 92/49 L 97 Room Air 07/08/24 06:03 07/08/24 06:03 07/08/24 06:03 07/08/24 06:03 07/08/24 06:03 07/08/24 06:03 Oxygen Delivery Method Room Air Weight: 170 lb 9.6 oz Body Mass Index (BMI) 27.5 Intake & Output: Intake and Output for Last 24 Hours 07/06/24 07/07/24 07/08/24 23:59 23:59 23:59 Intake Total 2835 / 2955 240 / 240 Output Total 950 / 950 2049 / 2049 150 / 150 Balance 188 / 2004 -1810 / -1810 -150 / -150 Lab / Micro Data 07/06/24 04:29 07/06/24 04:29 Micro: Microbiology 07/05/24 12:36 Urine, Random Urine Culture - Final Presumptive E. coli Cardiology Labs/Tests Rhythm: EKG: ECHO: Stress Test: Cardiac Cath: PCI: CT Surgery: Holter monitor: EPS: PPM: CXR: Chest CT Scan: Radiography Diagnostic Testing: Radiology Impression Ribs X-Ray 07/07/24 11:45 IMPRESSION: Fractures of the left ninth and 10th ribs. Electronically Signed: Reagan Gallegos MD at 12:05 EDT Reading Location ID and State: [address] [place] [address] , Service support , Physical Exam Const alert, oriented x3 and no apparent distress General Appearance: cooperative HEENT hearing grossly normal bilaterally Head and Scalp: atraumatic Eyes EOMs intact bilaterally Neck General: normal visual inspection Chest inspection of chest normal and palpation of chest normal Resp normal respiratory effort Auscultation: clear to auscultation bilaterally Cardio regular rate, regular rhythm, S1 normal heart sound and S2 normal heart sound Jugular Venous Distention: JVD GI normal to inspection, nondistended, normoactive bowel sounds Extremity normal capillary refill and no pedal edema Peripheral Pulses: Yes pulses 2+ throughout and femoral pulses present Skin no rashes or lesions noted Neuro oriented x3 and CN's II-XII intact bilaterally Psych Appearance: grossly normal and appropriate Assessment & Plan Assessment/Plan (1) Paroxysmal atrial fibrillation: PLAN: She does have evidence of paroxysmal atrial fibrillation. She is currently in sinus rhythm. She will continue on her current dose of beta-lucinda. She will continue on the anticoagulation (2) Syncope and collapse: PLAN: I suspect her syncopal episode was secondary to the atrial fibrillation with a rapid ventricular response rate. Her echocardiogram demonstrated preserved left ventricular systolic function. We will continue to observe her and treat the underlying etiology. At this point she can probably be followed up as an outpatient.
--- NOTE | 2024-07-08 08:02 | EKG12_ITS ---
Test Reason : RHYTHM CHNG Blood Pressure : / mmHG Vent. Rate : 060 BPM Atrial Rate : 060 BPM P-R Int : 190 ms QRS Dur : 080 ms QT Int : 438 ms P-R-T Axes : 056 032 035 degrees QTc Int : 438 ms Sinus rhythm with Premature atrial complexes Low voltage QRS Borderline ECG Confirmed by KATIE PRAJAPATI, JAYLIN ([id number]), continuity editor GALINDO SHEPPARD ([id number]) on 07/10/2024 10:45:55 AM Referred By: Confirmed By:JAYLIN WILSON MD
--- NOTE | 2024-07-08 08:05 | PN.HOSP_ITS ---
Reason for Visit Reason for Visit: Diagnoses Other thrombophilia (07/05/24) Disorder of white blood cells, unspecified (07/05/24) Paroxysmal atrial fibrillation (07/05/24) Longstanding persistent atrial fibrillation (07/05/24) Syncope and collapse (07/05/24) Unspecified convulsions (07/05/24) Unspecified injury of head, initial encounter (07/05/24) Strain of muscle, fascia and tendon at neck level, initial encounter (07/05/24) Subjective Subjective Patient is an 84-year-old lady admitted with syncopal episode. Also found to be physically debilitated plans are underway for patient to be transferred to a senior care facility pending insurance Objective Data Objective Data Vital Signs: Vital Signs Temp Pulse Resp BP Pulse Ox O2 Del Method 97.3 F L 61 18 92/49 L 97 Room Air 07/08/24 06:03 07/08/24 06:03 07/08/24 06:03 07/08/24 06:03 07/08/24 06:03 07/08/24 06:03 Oxygen Delivery Method Room Air Weight: 77.383 kg Body Mass Index (BMI) 27.5 Intake & Output: Intake and Output for Last 24 Hours 07/06/24 07/07/24 07/08/24 23:59 23:59 23:59 Intake Total 2835 / 2955 240 / 240 Output Total 950 / 950 2049 150 / 150 Balance 1884 -1810 / -1810 -150 / -150 Lab / Micro Data 07/06/24 04:29 07/06/24 04:29 Micro: Microbiology 07/05/24 12:36 Urine, Random Urine Culture - Final Presumptive E. coli Radiography Diagnostic Testing: Radiology Impression Ribs X-Ray 07/07/24 11:45 IMPRESSION: Fractures of the left ninth and 10th ribs. Electronically Signed: Reagan Gallegos MD at 12:05 EDT , Physical Exam Narrative GENERAL: cooperative HEENT: Atraumatic; normocephalic, EYES; Anicteric, Normal Conjunctiva NECK; supple, normal thyroid, RESPIRATORY: Diminished to auscultation CARDIOVASCULAR: Regular S1 S2, GI: soft, normoactive bowel sounds, : No Renal angle tenderness; EXTREMITIES: edema, no clubbing, MUSCULOSKELETAL: no muscle wasting NEURO: Awake; no lateralizing signs. SKIN: No Rash PSYCH; Flat affect Assessment & Plan Assessment/Plan (1) Syncope and collapse: PLAN: Plan Patient is an 84-year-old lady admitted with syncopal episode. Also found to be physically debilitated plans are underway for patient to be transferred to a senior care facility pending insurance 1. Syncopal episode ? Patient has been admitted to monitored bed for continuous telemetry monitoring. Patient was noted to advised an 8-second pause during her sleep which was followed by A-fib with RVR. Back to sinus rhythm 2. Physical deconditioning ? Requested for PT OT eval and social services coordinator to assist with discharge planning 3. Seizure disorder ? Patient is on Keppra discontinued 4. Dyslipidemia ?Patient is on statin therapy, continued at home dose 5. Paroxysmal atrial fibrillation with episodic RVR ? Patient is on metoprolol; Dose adjusted. Patient is on systemic anticoagulation with 6. Osteoporosis ? 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 DVT prophylaxis ? On apixaban Time spent in the patient's overall evaluation,decision-making process, review of diagnostic data, adjustment of management, discussion with other providers, nursing nursing and ancillary staff involved in patient's care documentation, 40 Minutes Charges/Coding Visit Charges Inpatient E&M: 09256 Subs Hosp L2
[2024-07-08] MEDS: Cholecalciferol (VIT D3) 25 MCG TABLET (1,000 UNITS) PO (11:00)
[2024-07-08] MEDS: levETIRAcetam 250 MG Tablet PO (11:00)
[2024-07-08] MEDS: APIXABAN 5 MG TABLET PO ×2 (11:01→20:50)
[2024-07-08] MEDS: DULoxetine Hcl 30 MG Capsule PO ×2 (11:01→20:50)
[2024-07-08] MEDS: Multivitamin (Healthy Eyes) Capsule 1 CAP PO ×2 (11:01→20:50)
[2024-07-08] MEDS: 0.9% Saline Lock 10 ML Syringe IV (11:11)
[2024-07-08] MEDS: oxyCODONE 5 MG Tablet 10 MG PO (11:12)
--- NOTE | 2024-07-08 18:13 | EKG12_ITS ---
Test Reason : RHYTHM CHNG Blood Pressure : / mmHG Vent. Rate : 072 BPM Atrial Rate : 072 BPM P-R Int : 174 ms QRS Dur : 076 ms QT Int : 394 ms P-R-T Axes : 046 011 035 degrees QTc Int : 431 ms Sinus rhythm with occasional Premature ventricular complexes Otherwise normal ECG When compared with ECG of 08-JUL-2024 08:04, MANUAL COMPARISON REQUIRED, DATA IS UNCONFIRMED Confirmed by KATIE PRAJAPATI, JAYLIN ([id number]), scientific publications editor GALINDO SHEPPARD ([id number]) on 07/10/2024 10:45:39 AM Referred By: Confirmed By:JAYLIN WILSON MD
--- NOTE | 2024-07-08 19:03 | CT_ITS ---
EXAM: CT HEAD WITHOUT INTRAVENOUS CONTRAST CLINICAL INDICATION: CONFUSION TECHNIQUE: Multiple axial images were obtained of the head without intravenous contrast. This CT exam was performed using one or more of the following dose reduction techniques: automated exposure control, adjustment of the mA and/or kV according to patient size, and/or use of iterative reconstruction technique. COMPARISON: CT head, 07/05/2024. FINDINGS: BRAIN AND EXTRA-AXIAL SPACES: Chronic right MCA distribution infarct similar to the prior CT examination and chronic left posterior parietal infarct similar to the prior CT examination. No discrete evidence of acute infarct or intracranial hemorrhage. There is non-specific periventricular hypoattenuation which is most commonly related to chronic microvascular ischemic disease in a patient of this age. No mass or mass effect. No shift of midline structures. No hydrocephalus. Patent basal cisterns. BONES/JOINTS: No significant abnormality. No discrete lytic or blastic abnormalities. VASCULATURE: Arteriosclerosis. SINUSES: No significant findings. MASTOID AIR CELLS: No significant effusion. ORBITS: Bilateral ocular lens extraction presumptively for the treatment of cataracts. Otherwise, no acute orbital pathology. CT/Brain/Head without Contrast IMPRESSION: Chronic ischemic changes. No CT evidence of acute intracranial pathology. Electronically Signed: Josse Morales DO at 20:12 EDT ,
[2024-07-08] MEDS: levETIRAcetam 250 MG Tablet 500 MG PO (20:51)
[2024-07-08] MEDS: Pravastatin 20 MG Tablet 10 MG PO (20:53)
[2024-07-09 03:00] VITALS: BP 100/49; PULSE 83; RESP 16; TEMP 36.6; O2SAT 95
[2024-07-09] MEDS: Acetaminophen 500 MG Tablet 1000 MG PO ×3 (06:03→21:03)
[2024-07-09] MEDS: 0.9% Saline Lock 10 ML Syringe IV ×3 (06:04→18:09)
--- NOTE | 2024-07-09 07:37 | PN.HOSP_ITS ---
Reason for Visit Reason for Visit: Diagnoses Other thrombophilia (07/05/24) Disorder of white blood cells, unspecified (07/05/24) Paroxysmal atrial fibrillation (07/05/24) Longstanding persistent atrial fibrillation (07/05/24) Syncope and collapse (07/05/24) Unspecified convulsions (07/05/24) Unspecified injury of head, initial encounter (07/05/24) Strain of muscle, fascia and tendon at neck level, initial encounter (07/05/24) Subjective Subjective Patient beta-blockers discontinued following episodes of bradycardia noticed on telemetry. Objective Data Objective Data Vital Signs: Vital Signs Temp Pulse Resp BP Pulse Ox O2 Del Method 97.9 F 83 16 100/49 L 95 Room Air 07/09/24 03:00 07/09/24 03:00 07/09/24 03:00 07/09/24 03:00 07/09/24 03:00 07/09/24 03:00 Oxygen Delivery Method Room Air Weight: 77.383 kg Body Mass Index (BMI) 27.5 Intake & Output: Intake and Output for Last 24 Hours 07/07/24 07/08/24 07/09/24 23:59 23:59 23:59 Intake Total 240 / 240 840 / 1090 500 / 500 Output Total 0 / 0 150 / 150 Balance -1810 / -1810 690 / 940 500 / 500 Lab / Micro Data 07/09/24 08:49 07/06/24 04:29 Micro: Microbiology 07/05/24 12:36 Urine, Random Urine Culture - Final Presumptive E. coli Radiography Diagnostic Testing: Radiology Impression Brain CT 07/08/24 19:03 IMPRESSION: Chronic ischemic changes. No CT evidence of acute intracranial pathology. Electronically Signed: Josse Morales DO at 20:12 EDT , Physical Exam Narrative GENERAL: cooperative HEENT: Atraumatic; normocephalic, EYES; Anicteric, Normal Conjunctiva NECK; supple, normal thyroid, RESPIRATORY: Diminished to auscultation CARDIOVASCULAR: Regular S1 S2, GI: soft, normoactive bowel sounds, : No Renal angle tenderness; EXTREMITIES: edema, no clubbing, MUSCULOSKELETAL: no muscle wasting NEURO: Awake; no lateralizing signs. SKIN: No Rash PSYCH; Flat affect Assessment & Plan Assessment/Plan (1) Syncope and collapse: PLAN: Plan Patient is an 84-year-old lady admitted with syncopal episode. Also found to be physically debilitated plans are underway for patient to be transferred to a senior care facility pending insurance 1. Syncopal episode ? Patient has been admitted to monitored bed for continuous telemetry monitoring. Patient was noted to advised an 8-second pause during her sleep which was followed by A-fib with RVR. Back to sinus rhythm ? 07/09/2024;Patient beta-blockers discontinued following episodes of bradycardia noticed on telemetry. 2. Physical deconditioning ? Requested for PT OT eval and professor of social work to assist with discharge planning ? 07/09/2024; plan is for patient to be transferred to the transitional care unit on 07/10/24. 3. Seizure disorder ? Patient is on Keppra discontinued 4. Dyslipidemia ?Patient is on statin therapy, continued at home dose 5. Paroxysmal atrial fibrillation with episodic RVR ? Patient is on metoprolol; Dose adjusted. Patient is on systemic anticoagulation with 6. Osteoporosis ? 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 DVT prophylaxis ? On apixaban Time spent in the patient's overall evaluation,decision-making process, review of diagnostic data, adjustment of management, discussion with other providers, nursing nursing and ancillary staff involved in patient's care documentation, 38 Minutes Charges/Coding Visit Charges Inpatient E&M: 82786 Subs Hosp L2
[2024-07-09 09:11] LABS: Absolute Neutrophil Count 4.7 X10^3/uL (2.0-7.7); Basophil# 0.03 X10^3/uL; Basophil% 0.4 % (0-1); Eosinophil# 0.21 X10^3/uL; Eosinophils% 2.8 % (0-5); Hematocrit 39.2 % (37-47); Hemoglobin 12.6 g/dL (12.0-15.0); Lymphocyte % 23.1 % (19-41); Mean Corp Hgb Conc 32.1 g/dL (32-36); Mean Corpuscular Hgb 32.1 pg (27.0-32.0); Mean Corpuscular Volume 99.7 fL (81-99); Monocyte# 0.67 X10^3/uL; Monocyte% 9.1 % (0-10); NRBC Flagged by Analyzer 0 % (0-5); Neutrophil # 4.72 X10^3/uL (2.7-7.7); Neutrophil % 64.1 % (47-70); Platelet Count 285 K/mm3 (150-450); RBC Distribution Width CV 12.5 % (11.6-14.6); RBC Distribution Width SD 45.7 fl (35.1-43.9); Red Blood Count 3.93 M/mm3 (4.2-5.4); White Blood Count 7.4 K/mm3 (4.4-11.0)
[2024-07-09 10:03] VITALS: BP 116/56; PULSE 83; RESP 16; TEMP 36.8; O2SAT 96
[2024-07-09] MEDS: levETIRAcetam 250 MG Tablet PO (10:05)
[2024-07-09] MEDS: Cholecalciferol (VIT D3) 25 MCG TABLET (1,000 UNITS) PO (10:05)
[2024-07-09] MEDS: Multivitamin (Healthy Eyes) Capsule 1 CAP PO ×2 (10:05→21:03)
[2024-07-09] MEDS: APIXABAN 5 MG TABLET PO ×2 (10:05→21:03)
[2024-07-09] MEDS: DULoxetine Hcl 30 MG Capsule PO ×2 (10:05→21:03)
[2024-07-09] MEDS: oxyCODONE 5 MG Tablet 10 MG PO ×2 (10:09→12:10)
[2024-07-09 10:11] LABS: Anion Gap 3 (5-15); BUN 23 mg/dL (7-18); BUN/Creat Ratio 26.9 RATIO (10-20); Chloride 110 mmol/L (98-107); Creatinine, Serum 0.85 mg/dL (0.55-1.02); EST Glomerular Filtration Rate 67 mL/min (>60); Est Glom Filt Rate - Afr Amer 82 mL/min (>60); Estimated Creatinine Clearance 51.75 ml/min; Glucose 103 mg/dL (74-106); Magnesium 2.6 mg/dL (1.6-2.6); Phosphorus 2.9 mg/dL (2.5-4.9); Potassium 3.7 mmol/L (3.5-5.1); Sodium Level 139 mmol/L (136-145)
[2024-07-09] MEDS: Senna/Docusate Sodium 1 Tablet 2 TABLET PO (10:31)
--- NOTE | 2024-07-09 14:40 | CASEMGMT ---
LUIS sent all necessary information to [facility] to obtain authorization for TCU. Nicci ZUÑIGA
[2024-07-09 15:52] LABS: Bacteria 0 SEEN /hpf (None Seen)
[2024-07-09 16:16] LABS: Color, Urine Yellow (Yellow); Glucose, Dipstick Normal (Normal); Ketone-Dipstick 5 mg/dl (Negative); Leukocyte Esterase-Dipstick 500 /ul (Negative); Nitrite-Dipstick Negative (Negative); Occult Blood-Urine 10 /ul (Negative); Protein-Dipstick 30 mg/dl (Negative); Specific Gravity, Urine 1.025 (1.002-1.030); Urine Bilirubin Dipstick Negative (Negative); Urine Clarity Sl. Cloudy (Clear); Urine Urobilinogen Normal (Normal)
[2024-07-09 16:25] LABS: Calcium Oxalate Crystals Ur 2+ /hpf (<or=2+); Red Blood Cells-Urine 0-5 SEEN /hpf (0-5); Squamous Epithelial Cells - UA 10-25 SEEN /hpf (5-10); White Blood Cells 0-5 SEEN /hpf (0-5)
[2024-07-09 16:26] LABS: Mucous, Urine 1+ /hpf (<or=2+); Transitional Epithelial - Ur 0-5 SEEN /hpf (0-5)
[2024-07-09 17:52] VITALS: BP 102/49; PULSE 95; RESP 16; TEMP 36.7; O2SAT 97
[2024-07-09] MEDS: Ceftriaxone 1 GM/50 ML BAG IV (18:08)
[2024-07-09 21:02] VITALS: BP 118/53; PULSE 96; RESP 18; TEMP 36.2; O2SAT 99
[2024-07-09] MEDS: levETIRAcetam 250 MG Tablet 500 MG PO (21:03)
[2024-07-10 03:15] VITALS: BP 116/55; PULSE 87; RESP 18; TEMP 36.3; O2SAT 96
[2024-07-10] MEDS: Polyethylene Glycol 3350 17 GM PACKET PO ×2 (05:21→09:17)
[2024-07-10] MEDS: Acetaminophen 500 MG Tablet 1000 MG PO ×2 (05:21→13:50)
[2024-07-10 06:16] LABS: Absolute Lymphocyte Count 2.13 X10^3/uL (0.83-4.51); Absolute Neutrophil Count 10.5 X10^3/uL (2.0-7.7); Basophil# 0.05 X10^3/uL; Basophil% 0.4 % (0-1); Eosinophil# 0.14 X10^3/uL; Hematocrit 35.4 % (37-47); Hemoglobin 11.5 g/dL (12.0-15.0); Lymphocyte # 2.13 X10^3/ul (0.83-4.51); Lymphocyte % 15.2 % (19-41); Mean Corp Hgb Conc 32.5 g/dL (32-36); Mean Corpuscular Hgb 31.9 pg (27.0-32.0); Mean Corpuscular Volume 98.3 fL (81-99); Monocyte# 1.15 X10^3/uL; Monocyte% 8.2 % (0-10); NRBC Flagged by Analyzer 0 % (0-5); Neutrophil # 10.52 X10^3/uL (2.7-7.7); Neutrophil % 74.8 % (47-70); Platelet Count 253 K/mm3 (150-450); RBC Distribution Width CV 12.4 % (11.6-14.6); RBC Distribution Width SD 44.9 fl (35.1-43.9); White Blood Count 14.1 K/mm3 (4.4-11.0)
--- NOTE | 2024-07-10 07:46 | CASEMGMT ---
Patient was approved by [facility] to go to [facility]. Auth ref number is: [id number]. SW will notify physician. Plan: D/c to [facility]. Nicci ZUÑIGA
[2024-07-10] MEDS: 0.9% Saline Lock 10 ML Syringe IV (08:52)
[2024-07-10 09:00] VITALS: BP 121/57; PULSE 98; RESP 16; TEMP 36.7; O2SAT 96
--- NOTE | 2024-07-10 09:00 | TREXTCAR_ITS ---
Diet Diet Order/Speech Therapy: 07/05/24 16:13 Diet: Cardiac - Heart Healthy Food consistency:: Regular Liquid Consistency:: Regular/Thin Therapies Physical Therapy: Eval and Treat Occupational Therapy: Eval and Treat Problem/Diagnosis (1) Syncope and collapse: Status: Acute Code(s): R55 - Syncope and collapse Plan Patient is an 84-year-old lady admitted with syncopal episode. Also found to be physically debilitated plans are underway for patient to be transferred to a care home facility pending insurance 1. Syncopal episode ? Patient has been admitted to monitored bed for continuous telemetry monitoring. Patient was noted to advised an 8-second pause during her sleep which was followed by A-fib with RVR. Back to sinus rhythm ? 07/09/2024;Patient beta-blockers discontinued following episodes of bradycardia noticed on telemetry. 2. Physical deconditioning ? Requested for PT OT eval and social service director to assist with discharge planning ? 07/09/2024; plan is for patient to be transferred to the transitional care unit on 07/10/24. 3. Seizure disorder ? Patient is on Keppra discontinued 4. Dyslipidemia ?Patient is on statin therapy, continued at home dose 5. Paroxysmal atrial fibrillation with episodic RVR ? Patient is on metoprolol; Dose adjusted. Patient is on systemic anticoagulation with 6. Osteoporosis ? 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 DVT prophylaxis ? On apixaban 10. Acute cystitis ? Patient was started on ceftriaxone patient will be discharged on Keflex Time spent in the patient's overall evaluation,decision-making process, review of diagnostic data, adjustment of management, discussion with other providers, nursing nursing and ancillary staff involved in patient's care documentation, 38 Minutes Allergies/Procedures Done in Hospital Allergies No Known Allergies Allergy (Verified 07/05/24 08:22) Type of Care/Length of Stay Estimated LOS: Convalescent Care Less Than 30 days Type of Care Needed: Skilled Rehab Potential: Good Prognosis: Good Additional Orders/Day of Discharge Day of Discharge: 07/10/24 Discharge Plan Admission Admit Date/Time: 07/05/24 14:38 Attending Provider: Yo Burroughs Primary Care Provider: Juju Lopez Consulting Providers: Brandt Mcfadden; Byron Guzman; Juan Alberto oRss Discharge Orders/Prescriptions Prescriptions: New sennosides-docusate sodium [Stimulant Laxative Plus] 8.6-50 mg Tablet 2 tab PO BID PRN PRN (Reason: Constipation) Qty: 0 0RF cephalexin 500 mg capsule 500 mg PO TID Qty: 15 0RF Continued levetiracetam 500 mg tablet 500 mg PO .COMPLEX Patient Comments: 250mg tabs. 1 tab in am and 2 in evening. (couldnt swallow when broke 500mg) Rx Instructions: 500 mg PO 0.5 (250 mg) in the am and 1 tablet (500 mg) in the evening.; duloxetine [Cymbalta] 30 mg capsule,delayed release(DR/EC) 30 mg PO BID apixaban 5 mg tablet 5 mg PO BID Qty: 180 3RF acetaminophen 325 mg tablet 325 mg PO Q6H PRN PRN (Reason: Mild Pain (0-3/10)/Headache) pravastatin 10 mg tablet 10 mg PO QODAY Patient Comments: had day before cholecalciferol (vitamin D3) 25 mcg (1,000 unit) tablet,chewable 25 mcg PO DAILY Coral Calcium 133 mg calcium -133 unit-67 mg capsule 1 cap PO DAILY Prolia 60 mg/mL syringe 60 mg subcut [id number] metoprolol succinate 25 mg tablet extended release 24 hr 12.5 mg PO DAILY Qty: 45 3RF [place] Q Plus 2 tab PO DAILY vit C,B-Hd-caavr-lutein-zeaxan 1 EACH capsule 1 ea PO BID Syfovre (PF) 15 mg /0.1 mL solution 15 mg intravitreal .[id number] Patient Comments: gets shot once every 8weeks in each eye Referrals / Follow Up: Juju Lopez DO [Primary Care Provider] - Disposition Disposition (needs filled in before D/C Order can be placed): Group Home Facility
[2024-07-10] MEDS: APIXABAN 5 MG TABLET PO (09:04)
[2024-07-10] MEDS: Multivitamin (Healthy Eyes) Capsule 1 CAP PO (09:04)
[2024-07-10] MEDS: levETIRAcetam 250 MG Tablet PO (09:04)
[2024-07-10] MEDS: DULoxetine Hcl 30 MG Capsule PO (09:04)
[2024-07-10] MEDS: Cholecalciferol (VIT D3) 25 MCG TABLET (1,000 UNITS) PO (09:05)
[2024-07-10] MEDS: Ceftriaxone 1 GM/50 ML BAG IV (09:05)
--- NOTE | 2024-07-10 09:08 | PCM.DC.SUM ---
Providers Date of Admission: 07/05/24 Date of Discharge: 07/10/24 Primary Care Physician: Dr. Juju Lopez, DO Consultations 07/07/24 05:49 Consult: Cardiology Routine Consulting Provider: Byron Guzman Reason for Consult: afib rvr, syncope EMERGENT Consult: No MD Notified: Yes Date Notified: 07/07/24 Time Notified: 06:06 Method of Notification: Text Reason For Visit: SYNCOPE Diagnosis Discharge Diagnosis (1) Syncope and collapse: Status: Acute Code(s): R55 - Syncope and collapse Plan Patient is an 84-year-old lady admitted with syncopal episode. Also found to be physically debilitated plans are underway for patient to be transferred to a residential facility pending insurance 1. Syncopal episode ? Patient has been admitted to monitored bed for continuous telemetry monitoring. Patient was noted to advised an 8-second pause during her sleep which was followed by A-fib with RVR. Back to sinus rhythm ? 07/09/2024;Patient beta-blockers discontinued following episodes of bradycardia noticed on telemetry. 2. Physical deconditioning ? Requested for PT OT eval and social work associate to assist with discharge planning ? 07/09/2024; plan is for patient to be transferred to the transitional care unit on 07/10/24. 3. Seizure disorder ? Patient is on Keppra discontinued 4. Dyslipidemia ?Patient is on statin therapy, continued at home dose 5. Paroxysmal atrial fibrillation with episodic RVR ? Patient is on metoprolol; Dose adjusted. Patient is on systemic anticoagulation with 6. Osteoporosis ? 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 DVT prophylaxis ? On apixaban 10. Acute cystitis ? Patient was started on ceftriaxone patient will be discharged on Keflex Time spent in the patient's overall evaluation,decision-making process, review of diagnostic data, adjustment of management, discussion with other providers, nursing nursing and ancillary staff involved in patient's care documentation, 38 Minutes Medications at Discharge Home Medications vit C 250 mg-vit E 90 mg-zinc 40 mg-copper 1 ip-mpmevv-bjswxw capsule 1 ea PO BID eye vitamin 05/07/18 levetiracetam 500 mg tablet 500 mg PO .COMPLEX 10/20/18 [place] Q Plus 2 tab PO DAILY 07/13/19 apixaban 5 mg tablet 5 mg PO BID blood thinner #180 tabs 12/04/19 acetaminophen 325 mg tablet 325 mg PO Q6H PRN PRN Mild Pain (0-3/10)/Headache 01/12/21 pravastatin 10 mg tablet 10 mg PO QODAY CHOLESTEROL 01/12/21 calcium carb 133 mg-vitD3 133 unit-mag amino acid chelate 67mg capsule (Coral Calcium) 1 cap PO DAILY 02/08/22 cholecalciferol (vitamin D3) 25 mcg (1,000 unit) chewable tablet 25 mcg PO DAILY 02/08/22 duloxetine 30 mg capsule,delayed release (Cymbalta) 30 mg PO BID 02/08/22 denosumab 60 mg/mL subcutaneous syringe (Prolia) 60 mg subcut [id number] 05/02/23 metoprolol succinate 25 mg tablet,extended release 24 hr 12.5 mg (1/2 x 25 mg) PO DAILY blood pressure #45 tabs 01/16/24 pegcetacoplan (PF) 15 mg/0.1 mL intravitreal solution (Syfovre (PF)) 15 mg intravitreal .[id number] 07/05/24 cephalexin 500 mg capsule 500 mg PO TID #15 caps 07/10/24 sennosides 8.6 mg-docusate sodium 50 mg tablet (Stimulant Laxative Plus) 2 tab PO BID PRN PRN Constipation #0 tabs 07/10/24 Physical Exam Narrative GENERAL: cooperative HEENT: Atraumatic; normocephalic, EYES; Anicteric, Normal Conjunctiva NECK; supple, normal thyroid, RESPIRATORY: Diminished to auscultation CARDIOVASCULAR: Regular S1 S2, GI: soft, normoactive bowel sounds, : No Renal angle tenderness; EXTREMITIES: edema, no clubbing, MUSCULOSKELETAL: no muscle wasting NEURO: Awake; no lateralizing signs. SKIN: No Rash PSYCH; Flat affect Weight / BMI Weight Weight: 77.383 kg Body Mass Index (BMI) 27.5 ABG / Lab / Microbiology Data 07/10/24 05:40 07/09/24 08:49 Laboratory: Laboratory Results - last 24 hr 07/09/24 08:49: WBC 7.4, RBC 3.93 L, Hgb 12.6, Hct 39.2, MCV 99.7 H, MCH 32.1 H, MCHC 32.1, RDW Std Deviation 45.7 H, RDW Coeff of Rich 12.5, Plt Count 285, MPV 11.0, Immature Gran % (Auto) 0.500, Neut % (Auto) 64.1, Lymph % (Auto) 23.1, [place] % (Auto) 9.1, Eos % (Auto) 2.8, Baso % (Auto) 0.4, Absolute Neuts (auto) 4.7, Absolute Lymphs (auto) 1.70, Nucleated RBC % 0, Sodium 139, Potassium 3.7, Chloride 110 H, Carbon Dioxide 26.0, Anion Gap 3 L, BUN 23 H, Creatinine 0.85, Estim Creat Clear Calc 51.75, Est GFR (MDRD) Af Amer 82, Est GFR (MDRD) Non-Af 67, BUN/Creatinine Ratio 26.9 H, Glucose 103, Calcium 9.0, Phosphorus 2.9, Magnesium 2.6 07/09/24 13:30: Urine Color Yellow, Urine Clarity Sl. Cloudy, Urine pH 6.0, Ur Specific [place] 1.025, Urine Protein 30 H, Urine Glucose (UA) Normal, Urine Ketones 5 H, Urine Occult Blood 10 H, Urine Nitrite Negative, Urine Bilirubin Negative, Urine Urobilinogen Normal, Ur Leukocyte Esterase 500 H, Urine RBC 0-5 SEEN, Urine WBC 0-5 SEEN, Ur Squamous Epith Cells 10-25 SEEN, Ur Transition Epith Cell 0-5 SEEN, Calcium Oxalate Crystal 2+, Urine Bacteria 0 SEEN, Urine Mucus 1+ 07/10/24 05:40: WBC 14.1 H, RBC 3.60 L, Hgb 11.5 L, Hct 35.4 L, MCV 98.3, MCH 31.9, MCHC 32.5, RDW Std Deviation 44.9 H, RDW Coeff of Rich 12.4, Plt Count 253, MPV 11.0, Immature Gran % (Auto) 0.400, Neut % (Auto) 74.8 H, Lymph % (Auto) 15.2 L, [place] % (Auto) 8.2, Eos % (Auto) 1.0, Baso % (Auto) 0.4, Absolute Neuts (auto) 10.5 H, Absolute Lymphs (auto) 2.13, Nucleated RBC % 0 Microbiology: Microbiology 07/05/24 12:36 Urine, Random Urine Culture - Final Presumptive E. coli D/C Instructions Discharge Diet: No restrictions Discharge Activity: Return to Normal Activity Call your doctor if you observe: Fever of 101 or Higher, Shortness of breath, Fainting spells and Chest pain Meaningful Use Info Meaningful Use Meaningful Use Diagnoses (Choose all that apply): None applicable Ischemic Stroke Statin Dosing Therapy Reference: STATIN DOSE THERAPY REFERENCE: * Patients > 75 years receive moderate or high dose statin therapy. * Patients 75 years or YOUNGER should receive HIGH intensity statin dose unless contraindicated. You will be required to document reason for non-treatment if statin daily dose does not meet guidelines. HIGH DOSE STATIN THERAPY DAILY Atorvastatin > than or = to 40 mg Rosuvastatin > than or = to 20 mg Amlodipine + Atorvastatin > than or = to 2.5/40 mg Ezetimibe + Simvastatin 10/80 mg Simvastatin 80mg Discharge Plan Admission Admit Date/Time: 07/05/24 14:38 Attending Provider: Yo Burroughs Primary Care Provider: Juju Lopez Consulting Providers: Brandt Mcfadden; Byron Guzman; Juan Alberto Ross Discharge Orders/Prescriptions Prescriptions: New sennosides-docusate sodium [Stimulant Laxative Plus] 8.6-50 mg Tablet 2 tab PO BID PRN PRN (Reason: Constipation) Qty: 0 0RF cephalexin 500 mg capsule 500 mg PO TID Qty: 15 0RF Continued levetiracetam 500 mg tablet 500 mg PO .COMPLEX Patient Comments: 250mg tabs. 1 tab in am and 2 in evening. (couldnt swallow when broke 500mg) Rx Instructions: 500 mg PO 0.5 (250 mg) in the am and 1 tablet (500 mg) in the evening.; duloxetine [Cymbalta] 30 mg capsule,delayed release(DR/EC) 30 mg PO BID apixaban 5 mg tablet 5 mg PO BID Qty: 180 3RF acetaminophen 325 mg tablet 325 mg PO Q6H PRN PRN (Reason: Mild Pain (0-3/10)/Headache) pravastatin 10 mg tablet 10 mg PO QODAY Patient Comments: had day before cholecalciferol (vitamin D3) 25 mcg (1,000 unit) tablet,chewable 25 mcg PO DAILY [place] Calcium 133 mg calcium -133 unit-67 mg capsule 1 cap PO DAILY Prolia 60 mg/mL syringe 60 mg subcut [id number] metoprolol succinate 25 mg tablet extended release 24 hr 12.5 mg PO DAILY Qty: 45 3RF [place] Q Plus 2 tab PO DAILY vit C,W-Yv-hsdhs-lutein-zeaxan 1 EACH capsule 1 ea PO BID Syfovre (PF) 15 mg /0.1 mL solution 15 mg intravitreal .[id number] Patient Comments: gets shot once every 8weeks in each eye Referrals / Follow Up: Juju Lopez DO [Primary Care Provider] - Within 2 Weeks Disposition Disposition (needs filled in before D/C Order can be placed): [facility] Charges/Coding Visit Charges Inpatient E&M: 24828 Disch Hosp >30min
[2024-07-10 09:51] LABS: Anion Gap 6 (5-15); BUN 19 mg/dL (7-18); BUN/Creat Ratio 29.8 RATIO (10-20); Calcium,Total 8.6 mg/dL (8.5-10.1); Chloride 110 mmol/L (98-107); Creatinine, Serum 0.64 mg/dL (0.55-1.02); EST Glomerular Filtration Rate 94 mL/min (>60); Est Glom Filt Rate - Afr Amer 114 mL/min (>60); Estimated Creatinine Clearance 54.98 ml/min; Glucose 101 mg/dL (74-106); Potassium 3.5 mmol/L (3.5-5.1); Sodium Level 138 mmol/L (136-145)
[2024-07-10 15:00] VITALS: BP 115/55; PULSE 94; RESP 16; TEMP 36.6; O2SAT 96
== END 2024-07-10 16:31 | disposition skilled nursing facility (03) ==
LOC: ED 14:52 → PCU 14:55
PROVIDERS: Admitting Provider Hospitalist; Emergency Provider Emergency Medicine; PCP Family Medicine; Visit Provider Internal Medicine
DX: R55 Syncope and collapse (principal); I69.354 Hemiplegia and hemiparesis following cerebral infarction affecting left non-dominant side; I48.11 Longstanding persistent atrial fibrillation; G40.909 Epilepsy, unspecified, not intractable, without status epilepticus; S09.90XA Unspecified injury of head, initial encounter; S16.1XXA Strain of muscle, fascia and tendon at neck level, initial encounter; I10 Essential (primary) hypertension; D68.69 Other thrombophilia; Z79.899 Other long term (current) drug therapy; Z79.01 Long term (current) use of anticoagulants; E78.5 Hyperlipidemia, unspecified; M81.0 Age-related osteoporosis without current pathological fracture; N30.00 Acute cystitis without hematuria
CPT/HCPCS: 36415; 70450; 71045; 71100; 72072; 72100; 72125; 80048; 81001; 83735; 84100; 84145; 84484; 85025; 85610; 85730; 87086; 87088; 87186; 93005; 93306; 94668; 96361; 96365; 96366; 96367; 96375; 97116; 97162; 97166; 97530; 97535; 99221; 99284; J7030; Q9957; A4216; G0378

== ENCOUNTER 2024-07-10 16:35 | Inpatient (IN) | payer MEDICARE, SELFPAY ==
[2024-07-10 16:53] VITALS: BP 123/59; PULSE 96; RESP 22; TEMP 36.4; O2SAT 92; BMI 31.3
--- NOTE | 2024-07-10 18:50 | HP.PCM_ITS ---
HPI - General General Date of Admission: 07/10/24 Date of Service: 07/10/24 Chief Complaint: Here for rehabilitation. HPI Narrative 07/05/2024 HENRY DEGROOT, is a 84 Female who presents to [facility] ED with dizziness. Syncope, dizzy, passed out in shower. Fell backwards, hit head, laid in tub 45 minutes. Pain back of head, neck, and back. CT brain negative, CT cervical spine negative, Chest X-ray negative, X-ray T spine negative, X-ray LS spine negative. 07/05/2024 Admit [facility]. IV fluids given. Ceftriaxone, Azithromycin for pneumonia. Pain control. 07/05/2024 Echo EF 55 to 60%. LV function normal. 07/06/2024 Max assist to walk. PT/OT for SNF. Stop Ceftriaxone, Azithromycin, doubt pneumonia WBC normal. 07/07/2024 Pre-CERT for SNF. PT/OT SNF. Increase Metoprolol for atrial fibrillation rate control. 07/08/2024 8 second pause on telemetry. 07/08/2024 Converted to sinus rhythm. 07/08/2024 PT/OT SNF. Syncope 2/2 atrial fibrillation with rapid ventricular response. 07/09/2024 beta lucinda stopped 2/2 bradycardia. 07/10/2024 Metoprolol restarted at 12.5mg bid. 07/10/2024 Ceftriaxone IV for E. Coli urinary tract infection, transition to oral antibiotic. 07/10/2024 Admit to TCU with debility, here for rehabilitation, strengthening, prior to discharge home with family. [facility] Medical History (Updated 07/10/24 @ 18:[address] Manjinder Hernandez MD) Seizure Paroxysmal atrial fibrillation Macular degeneration Left hemiparesis Cerebrovascular disease Gammopathy 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 Snoring Acute right MCA stroke (02/08/16) Obesity (BMI 30.0-34.9) Home Medications ?Medication ?Instructions ?Recorded ?Last Taken ?Type vit C 250 mg-vit E 90 mg-zinc 40 1 ea PO BID eye vitamin 05/07/18 Unknown History mg-copper 1 [id number] capsule levetiracetam 500 mg tablet 500 mg PO QHS Seizures 10/20/18 Unknown History [place] Q Plus 2 tab PO DAILY Heart 07/13/19 Unknown History apixaban 5 mg tablet 5 mg PO BID blood thinner #180 tabs 12/04/19 07/10/24 09:05 Rx acetaminophen 325 mg tablet 325 mg PO Q6H PRN PRN Mild Pain 01/12/21 Unknown History (0-01/11)/Headache pravastatin 10 mg tablet 10 mg PO QODAY CHOLESTEROL 01/12/21 07/08/24 22:55 History calcium carb 133 mg-vitD3 133 1 cap PO DAILY Supplement 02/08/22 Unknown History unit-mag amino acid chelate 67mg capsule (Coral Calcium) cholecalciferol (vitamin D3) 25 25 mcg PO DAILY Supplement 02/08/22 07/10/24 09:05 History mcg (1,000 unit) chewable tablet duloxetine 30 mg capsule,delayed 30 mg PO BID Depression 02/08/22 07/10/24 09:00 History release (Cymbalta) denosumab 60 mg/mL subcutaneous 60 mg subcut [id number] Osteoporosis 05/02/23 Unknown History syringe (Prolia) metoprolol succinate 25 mg 12.5 mg (1/2 x 25 mg) PO DAILY 01/16/24 07/06/24 Rx tablet,extended release 24 hr blood pressure #45 tabs pegcetacoplan (PF) 15 mg/0.1 mL 15 mg intravitreal .[id number] Eyes 07/05/24 Unknown History intravitreal solution (Syfovre (PF)) cephalexin 500 mg capsule 500 mg PO TID UTI #15 caps 07/10/24 Unknown Rx levetiracetam 250 mg tablet 250 mg PO DAILY Seizures 07/10/24 Unknown History sennosides 8.6 mg-docusate sodium 2 tab PO BID PRN PRN Constipation 07/10/24 07/09/24 10:30 Rx 50 mg tablet (Stimulant Laxative #0 tabs Plus) Allergy/AdvReac Type Severity Reaction Status Date / Time No Known Allergies Allergy Verified 07/05/24 08:22 Family History Father CAD (coronary artery disease) Aunt Breast cancer Sister Uterine cancer Surgical History S/P laser cataract surgery History of bilateral cataract extraction History of colonoscopy History of total mastectomy of right breast Social History (Updated 07/10/24 @ 18:[address] Manjinder Hernandez MD) household members: family Smoking Status: Never smoker alcohol intake: never substance use type: does not use ROS Constitutional Constitutional: Reports weakness; Denies chills, fever(s) or weight gain ENT HEENT: Denies headache(s), nasal congestion or nasal discharge Cardiovascular Cardiovascular: Denies chest pain or palpitations Respiratory/Chest Respiratory/Chest: Denies cough, excessive phlegm production or shortness of breath with exertion Gastrointestinal Gastrointestinal: Denies abdominal pain, nausea or vomiting Genitourinary Genitourinary: Denies dysuria Musculoskeletal Musculoskeletal: Denies joint pain or joint swelling Integumentary Integumentary: Denies rash or wounds Neurologic Neurologic: Denies focal weakness, numbness or tingling Psychiatric Psychiatric: Denies anxiety, auditory hallucinations, depression, homicidal ideation or suicidal ideation Vital Signs Vital Signs Vital Signs: 07/10/24 16:53 Temperature 97.5 F L Temperature Source Temporal Pulse Rate 96 Respiratory Rate 22 H Blood Pressure 123/59 H Blood Pressure Mean 80 Blood Pressure Source Monitor Blood Pressure Position Sitting Blood Pressure Location Left Arm Pulse Ox 92 Oxygen Delivery Method Room Air Weight Weight: 80.286 kg Body Mass Index (BMI) 31.3 Physical Exam Const alert General Appearance: cooperative HEENT normocephalic Eyes PERRL and EOMs intact bilaterally Neck supple, no JVD and no carotid bruits Resp normal respiratory effort, normal air movement and clear to auscultation bilaterally Cardio regular rate and regular rhythm GI normal to inspection, nondistended, normoactive bowel sounds, non-tender and non-distended Extremity normal capillary refill General Extremity: Negative for edema Skin no rashes or lesions noted General Skin Exam: no breakdown Psych affect normal Appearance: appropriate Assessment & Plan Assessment/Plan (1) Debility: (2) Fall: (3) Syncope: (4) Atrial fibrillation with rapid ventricular response: (5) Urinary tract infection: (6) Seizure disorder: (7) Hyperlipidemia: (8) Depression: (9) Osteoporosis: (10) Stroke: (11) Left hemiparesis: PLAN: Plan 84 year old female with below past medical history hospitalized for syncope 2/2 atrial fibrillation with RVR, complicated by E. Coli urinary tract infection, pneumonia ruled out, admitted to TCU with debility, here for rehabilitation, strengthening, prior to discharge home with family. * Debility - PT/OT. * Dysphagia - ST. * Pain - Tylenol 1000mg q6 prn pain (1-10). * Bowel - senna/colace 1 tablet bid, Magnesium citrate 300ml daily prn. * Adult immunization - Administer pneumonia vaccine, covid vaccine, flu vaccine as appropriate. * DVT prophylaxis - on Eliquis. * Atrial Fibrillation - Metoprolol succinate 12.5mg daily, Eliquis 5mg bid. * Calcium deficiency - Calcium D 1 tablet daily. * E. Coli urinary tract infection - Keflex 500mg po tid thru 07/15/2024. * Vitamin D deficiency - D3 25mcg daily. * Depression - Duloxetine 30mg bid, stable chronic fpc use, GDR not recommended. * Nutrition - Ensure Plus 120ml po tidcm. * Seizure disorder - Keppra 250mg po qam, 500mg qhs. * Macular degeneration - Healthy Eye 1 cap po bid. * Hyperlipidemia - Pravastatin 10mg q48.
[2024-07-10] MEDS: Ensure Plus High Protein 120 ML LIQUID PO (19:23)
[2024-07-10] MEDS: levETIRAcetam 500 MG Tablet PO (21:06)
[2024-07-10] MEDS: Senna/Docusate Sodium 1 Tablet PO (21:07)
[2024-07-10] MEDS: Multivitamin (Healthy Eyes) Capsule 1 CAP PO (21:07)
[2024-07-10] MEDS: Cephalexin 500 MG Capsule PO (21:07)
[2024-07-10] MEDS: APIXABAN 5 MG TABLET PO (21:07)
[2024-07-10] MEDS: DULoxetine Hcl 30 MG Capsule PO (21:07)
[2024-07-10] MEDS: Pravastatin 20 MG Tablet 10 MG PO (21:08)
[2024-07-10] MEDS: Nystatin Powder 15gm Bottle 1 APPLIC TOPICAL (21:16)
[2024-07-11] MEDS: 0.9% Saline Lock 10 ML Syringe IV (04:55)
[2024-07-11] MEDS: Acetaminophen 500 MG Tablet 1000 MG PO (04:55)
[2024-07-11] MEDS: Cephalexin 500 MG Capsule PO ×3 (04:59→21:30)
[2024-07-11 07:07] LABS: Absolute Lymphocyte Count 1.55 X10^3/uL (0.83-4.51); Absolute Neutrophil Count 7.6 X10^3/uL (2.0-7.7); Basophil# 0.03 X10^3/uL; Basophil% 0.3 % (0-1); Eosinophil# 0.09 X10^3/uL; Eosinophils% 0.9 % (0-5); Hematocrit 33.6 % (37-47); Hemoglobin 10.8 g/dL (12.0-15.0); Lymphocyte # 1.55 X10^3/ul (0.83-4.51); Lymphocyte % 15.1 % (19-41); Mean Corp Hgb Conc 32.1 g/dL (32-36); Mean Corpuscular Hgb 31.6 pg (27.0-32.0); Mean Corpuscular Volume 98.2 fL (81-99); Mean Platelet Vol. 11.6 fl (6.2-12.0); Monocyte# 0.97 X10^3/uL; Monocyte% 9.5 % (0-10); NRBC Flagged by Analyzer 0 % (0-5); Neutrophil # 7.56 X10^3/uL (2.7-7.7); Neutrophil % 73.7 % (47-70); Platelet Count 256 K/mm3 (150-450); RBC Distribution Width CV 12.8 % (11.6-14.6); RBC Distribution Width SD 45.4 fl (35.1-43.9); Red Blood Count 3.42 M/mm3 (4.2-5.4); White Blood Count 10.3 K/mm3 (4.4-11.0)
[2024-07-11 07:26] LABS: Anion Gap 3 (5-15); BUN 14 mg/dL (7-18); BUN/Creat Ratio 23.5 RATIO (10-20); Calcium,Total 8.8 mg/dL (8.5-10.1); Chloride 110 mmol/L (98-107); EST Glomerular Filtration Rate 102 mL/min (>60); Est Glom Filt Rate - Afr Amer 123 mL/min (>60); Estimated Creatinine Clearance 52.52 ml/min; Glucose 120 mg/dL (74-106); Potassium 3.9 mmol/L (3.5-5.1); Sodium Level 138 mmol/L (136-145)
[2024-07-11] MEDS: Multivitamin (Healthy Eyes) Capsule 1 CAP PO ×2 (09:52→21:30)
[2024-07-11] MEDS: Senna/Docusate Sodium 1 Tablet PO ×2 (09:52→21:30)
[2024-07-11] MEDS: Nystatin Powder 15gm Bottle 1 APPLIC TOPICAL ×2 (09:52→21:31)
[2024-07-11] MEDS: APIXABAN 5 MG TABLET PO ×2 (09:53→21:30)
[2024-07-11] MEDS: Calcium Carb/Vitamin D 1 TABLET Tablet PO (09:53)
[2024-07-11] MEDS: levETIRAcetam 250 MG Tablet PO (09:53)
[2024-07-11 09:54] VITALS: BP 104/50; PULSE 50
[2024-07-11] MEDS: DULoxetine Hcl 30 MG Capsule PO ×2 (09:54→21:30)
[2024-07-11] MEDS: Cholecalciferol (VIT D3) 25 MCG TABLET (1,000 UNITS) PO (09:54)
[2024-07-11] MEDS: Metoprolol(XL)Succ 25 MG Tablet 12.5 MG PO (09:54)
[2024-07-11] MEDS: Tuberculin,Purif.prot.deriv. 50 TU/ML Vial 0.1 ML ID (10:05)
[2024-07-11 10:09] VITALS: BP 104/50; PULSE 86; O2SAT 100
[2024-07-11] MEDS: Ensure Plus High Protein 120 ML LIQUID PO (13:16)
[2024-07-11 15:30] VITALS: PULSE 86; RESP 16; O2SAT 97
[2024-07-11 16:00] VITALS: BP 110/53; PULSE 86; RESP 16; TEMP 36.4; O2SAT 98
[2024-07-11] MEDS: levETIRAcetam 500 MG Tablet PO (21:31)
[2024-07-12] MEDS: Cephalexin 500 MG Capsule PO ×3 (05:02→22:20)
[2024-07-12 05:04] VITALS: RESP 16
[2024-07-12 06:36] LABS: Hematocrit 33.9 % (37-47); Hemoglobin 10.7 g/dL (12.0-15.0)
[2024-07-12] MEDS: 0.9% Saline Lock 10 ML Syringe IV ×2 (09:00→22:28)
[2024-07-12] MEDS: Multivitamin (Healthy Eyes) Capsule 1 CAP PO ×2 (09:02→22:20)
[2024-07-12] MEDS: DULoxetine Hcl 30 MG Capsule PO ×2 (09:02→22:20)
[2024-07-12] MEDS: Calcium Carb/Vitamin D 1 TABLET Tablet PO (09:02)
[2024-07-12] MEDS: APIXABAN 5 MG TABLET PO (09:03)
[2024-07-12] MEDS: levETIRAcetam 250 MG Tablet PO (09:03)
[2024-07-12] MEDS: Nystatin Powder 15gm Bottle 1 APPLIC TOPICAL ×2 (09:03→22:21)
[2024-07-12 09:04] VITALS: BP 134/68; PULSE 88
[2024-07-12] MEDS: Cholecalciferol (VIT D3) 25 MCG TABLET (1,000 UNITS) PO (09:04)
[2024-07-12] MEDS: Metoprolol(XL)Succ 25 MG Tablet 12.5 MG PO (09:04)
[2024-07-12] MEDS: Senna/Docusate Sodium 1 Tablet PO ×2 (09:04→22:21)
[2024-07-12 09:12] VITALS: BP 134/68; PULSE 88; O2SAT 93
[2024-07-12] MEDS: Ensure Plus High Protein 120 ML LIQUID PO (13:18)
[2024-07-12] MEDS: Acetaminophen 500 MG Tablet 1000 MG PO (13:18)
--- NOTE | 2024-07-12 13:52 | NURSING ---
dr retana notified of + occult stool. new orders consult Dr Block saturday, hold eliquis until Dr Block decides when to restart.
[2024-07-12 16:00] VITALS: BP 110/56; PULSE 73; RESP 16; TEMP 36.6; O2SAT 96
--- NOTE | 2024-07-12 16:41 | NURSING ---
PT AND DAUGHTER UPDATED ON POSITIVE BLOOD IN STOOL AND DRMeloFRIEND WILL BE CONSULTED.
[2024-07-12] MEDS: levETIRAcetam 500 MG Tablet PO (22:20)
[2024-07-12] MEDS: Pravastatin 20 MG Tablet 10 MG PO (22:21)
[2024-07-13] MEDS: Cephalexin 500 MG Capsule PO ×3 (05:08→21:13)
[2024-07-13 05:56] LABS: Hemoglobin 11.2 g/dL (12.0-15.0)
--- NOTE | 2024-07-13 09:24 | PHA.CONS_ITS ---
Documented by User: Bennie Gutiérrez 07/13/24 09:40 TCU RX Drug Regimen Review Subjective/Objective Subjective/Objective: Subjective: TCU admission note. 84 year old female with below past medical history hospitalized for syncope 2/2 atrial fibrillation with RVR, complicated by E. Coli urinary tract infection, pneumonia ruled out, admitted to TCU with debility, here for rehabilitation, strengthening, prior to discharge home with family. Objective: Allergies No Known Allergies Allergy (Verified 07/05/24 08:22) Current Medications Generic Name Dose Route Start Last Admin Trade Name Freq PRN Reason Stop Dose Admin Acetaminophen 1,000 mg 07/10/24 19:06 07/12/24 13:18 Acetaminophen 500 Mg Tablet PO 1,000 mg Q6H PRN PRN Administration Pain Score 1-10 Apixaban 5 mg 07/10/24 22:00 07/12/24 09:03 Apixaban 5 Mg Tablet PO 5 mg BID DEJON Administration Calcium/Vitamin D 1 tablet 07/11/24 08:00 07/12/24 09:02 Calcium Carb/Vitamin D 1 Tablet Tablet PO 1 tablet DAILYCM DEJON Administration Cephalexin 500 mg 07/10/24 22:00 07/13/24 05:08 Cephalexin 500 Mg Capsule PO 07/15/24 14:01 500 mg TID DEJON Administration Cholecalciferol 25 mcg 07/11/24 10:00 07/12/24 09:04 Cholecalciferol (Vit D3) 25 Mcg Tablet (1,000 Units) PO 25 mcg DAILY DEJON Administration Duloxetine HCl 30 mg 07/10/24 22:00 07/12/24 22:20 Duloxetine Hcl 30 Mg Capsule PO 30 mg BID DEJON Administration Levetiracetam 500 mg 07/10/24 22:00 07/12/24 22:20 Levetiracetam 500 Mg Tablet PO 500 mg QHS DEJON Administration Levetiracetam 250 mg 07/11/24 10:00 07/12/24 09:03 Levetiracetam 250 Mg Tablet PO 250 mg DAILY DEJNO Administration Magnesium Citrate 300 ml 07/10/24 19:05 Magnesium Citrate 300 Ml PO DAILY PRN Constipation Metoprolol Succinate 12.5 mg 07/11/24 10:00 07/12/24 09:04 Metoprolol(Xl)Succ 25 Mg Tablet PO 12.5 mg DAILY DEJON Administration Protocol Multivitamins/Minerals 1 cap 07/10/24 22:00 07/12/24 22:20 Multivitamin (Healthy Eyes) Capsule PO 1 cap BID DEJON Administration Nutritional Formula (Lactose Free) 120 ml 07/10/24 17:45 07/12/24 16:33 Ensure Plus High Protein 120 Ml Liquid PO Not Given TIDCM DEJON Nystatin 1 applic 07/10/24 22:00 07/12/24 22:21 Nystatin Powder 15gm Bottle TOPICAL 1 applic BID DEJON Administration Protocol Pravastatin Sodium 10 mg 07/10/24 22:00 07/12/24 22:21 Pravastatin 20 Mg Tablet PO 10 mg Q48H DEJON Administration Senna/Docusate Sodium 1 tablet 07/10/24 22:00 07/12/24 22:21 Senna/Docusate Sodium 1 Tablet PO 1 tablet BID DEJON Administration Sodium Chloride 10 - 40 ml 07/10/24 17:12 07/12/24 22:28 0.9% Saline Lock 10 Ml Syringe IV 10 ml UD PRN Administration SALINE FLUSH Tuberculin PPD 0.1 ml 07/18/24 10:00 Tuberculin,Purif.Prot.Deriv. 50 Tu/Ml Vial ID 07/18/24 10:01 X1 ONE Problem List Stroke (Acute) Osteoporosis (Acute) Depression (Acute) Hyperlipidemia (Acute) Seizure disorder (Acute) Urinary tract infection (Acute) Atrial fibrillation with rapid ventricular response (Acute) Syncope (Acute) Fall (Acute) Debility (Acute) Left hemiparesis (Chronic) Vital Signs Temp Pulse Resp BP Pulse Ox O2 Del Method 97.8 F 73 16 110/56 L 96 Room Air 07/12/24 16:00 07/12/24 16:00 07/12/24 16:00 07/12/24 16:00 07/12/24 16:00 07/12/24 16:00 Oxygen Delivery Method Room Air Weight: 80.286 kg Body Mass Index (BMI) 31.3 Sodium 138 mmol/L (136-145) 07/11/24 06:15 Potassium 3.9 mmol/L (3.5-5.1) 07/11/24 06:15 Chloride 110 mmol/L (98-107) H 07/11/24 06:15 Carbon Dioxide 25.0 mmol/L (21.0-32.0) 07/11/24 06:15 Anion Gap 3 (5-15) L 07/11/24 06:15 BUN 14 mg/dL (7-18) 07/11/24 06:15 Creatinine 0.60 mg/dL (0.55-1.02) 07/11/24 06:15 Est GFR (MDRD) Af Amer 123 mL/min (>60) 07/11/24 06:15 Est GFR (MDRD) Non-Af 102 mL/min (>60) 07/11/24 06:15 BUN/Creatinine Ratio 23.5 RATIO (10-20) H 07/11/24 06:15 Glucose 120 mg/dL (74-106) H 07/11/24 06:15 Assessment/Plan: 1. Pain: acetaminophen 1000 mg PO Q6H PRN pain. The patient has used 2 doses of PRN acetaminophen so far this admission. Please continue to monitor for PRN medication usage, pain levels, and LFTs (AST/ALT = 23/19 U/L on 10/06/21). 2. Bowel: senna/docusate 1 tablet PO BID, magnesium citrate 300 mL PO daily PRN constipation. The patient has not required any PRN doses of magnesium citrate so far this admission and the patient's last documented bowel movement was 07/11/24. Please continue to monitor for bowel movements, PRN medication usage, constipation and diarrhea. 3. Atrial fibrillation: metoprolol succinate 12.5 mg PO daily, apixaban 5 mg PO BID. Please continue to monitor for s/s of stroke, heart rates (recent range = 50-98 beats/min), blood pressures (recent range = 104-134/50-68 mmHg), fatigue, for s/s of bleeding/excessive bruising, hemoglobin levels (Hgb = 11.2 g/dL on 07/13/24), platelet count (Plt = 256 K/mm3 on 07/11/24), and serum creatinine (serum creatinine = 0.60 mg/dL on 07/11/24). 4. E Coli urinary tract infection: cephalexin 500 mg PO TID through 07/15/24. Please continue to monitor for s/s of infection/UTI such as white blood cell count (WBC = 10.3 K/mm3 on 07/11/24), for fevers (temp = 97.8 F on 07/12/24), for ch ills, dysuria, frequency, urgency, abdominal pain, diarrhea, renal function (serum creatinine = 0.60 mg/dL with creatinine clearance ~ 53 mL/min on 07/11/24). 5. Seizure disorder: levetiracetam 250 mg PO daily, levetiracetam 500 mg PO QHS. Please continue to monitor for s/s of seizures, renal function (serum creatinine = 0.60 mg/dL with creatinine clearance ~ 53 mL/min on 07/11/24), and for agitatio n/aggression. 6. Hyperlipidemia: pravastatin 10 mg PO Q48H. Please continue to monitor lipid levels (cholesterol = 173 mg/dL with LDL = 81 mg/dL on 10/06/21), and for myalgias. Please consider ordering an annual lipid panel if clinically indicated. 7. Macular degeneration: healthy eyes 1 capsule PO BID. Please continue to monitor eye health. 8. Calcium deficiency: calcium carbonate/vitamin D 1 tablet PO daily. Please continue to monitor calcium levels (Ca = 8.8 mg/dL on 07/11/24). 9. Vitamin D deficiency: cholecalciferol 25 mcg PO daily. Please continue to monitor vitamin D levels (no recent vitamin D level documented). 10. Skin irritation/tinea corporis: nystatin powder 1 application topically BID. Please continue to monitor for skin irritation/resolution of tinea corporis. 11. Nutrition: ensure plus 120 mL PO TID with meals. Please continue to monitor overall nutritional status. Assessment/Plan for indications treated with psychotropic medications: 1. Depression: duloxetine 30 mg PO BID. Please see provider note regarding stable chronic long-term use GDR not recommended. Please continue to monitor for depression, for SI, LFTS (AST/ALT = 23/19 U/L on 10/06/21), for s/s of serotonin syndrome, for abdominal pain, drowsiness, fatigue, and constipation. Medical chart and medication regimen reviewed. The following medication irregularities or issues were identified: 1. Hyperlipidemia: pravastatin 10 mg PO Q48H. Please continue to monitor lipid levels (cholesterol = 173 mg/dL with LDL = 81 mg/dL on 10/06/21), and for myalgias. Please consider ordering an annual lipid panel if clinically indicated. 2. Vitamin D deficiency: cholecalciferol 25 mcg PO daily. Please continue to monitor vitamin D levels (no recent vitamin D level documented). Date Date of Note:: 07/13/24 Documented by User: Dr. Manjinder Hernandez MD 07/13/24 12:16 TCU RX Drug Regimen Review Provider Comments Provider responsibility Provider Comments to Recommendations by Pharmacy: Agree
[2024-07-13] MEDS: Ensure Plus High Protein 120 ML LIQUID PO ×3 (10:17→18:19)
[2024-07-13] MEDS: levETIRAcetam 250 MG Tablet PO (10:18)
[2024-07-13] MEDS: Calcium Carb/Vitamin D 1 TABLET Tablet PO (10:18)
[2024-07-13] MEDS: Multivitamin (Healthy Eyes) Capsule 1 CAP PO ×2 (10:18→21:13)
[2024-07-13] MEDS: DULoxetine Hcl 30 MG Capsule PO ×2 (10:18→21:13)
[2024-07-13 10:19] VITALS: BP 111/53; PULSE 81
[2024-07-13] MEDS: Cholecalciferol (VIT D3) 25 MCG TABLET (1,000 UNITS) PO (10:19)
[2024-07-13] MEDS: Metoprolol(XL)Succ 25 MG Tablet 12.5 MG PO (10:19)
[2024-07-13] MEDS: Nystatin Powder 15gm Bottle 1 APPLIC TOPICAL ×2 (10:24→21:27)
[2024-07-13 13:56] VITALS: BP 116/55; PULSE 97; RESP 14; TEMP 36.4; O2SAT 99
--- NOTE | 2024-07-13 14:54 | NURSING ---
Machine Quilt Stuffer Note; Activity Asset: Bar Anderson is independent in her choice of daily activities with reminders. He has a hard time reading however can see some stuff if really close and she has her flash light. She was given a cd player and gospel music to listen to due to un able to see and she real dose not use the tv. She welcomes visits from our heating technician and the volunteer heating technician is her clinical registered nurse. Her family and friends will visits as well. Staff will encourage social activities, remind her of weekly activities and respect her right to say no.
--- NOTE | 2024-07-13 16:42 | CASEMGMT ---
Social Work SW met with patient to complete initial assessment. Introduced self and role. Verified contacts. Patient confirmed code status as full code. SW noted LW is on file but not HCPOA and requested dtr provide copies. SW educated to [facility] insurance and continued stay is not guaranteed with each review. Pt's goal is to return home with family. SW will continue to follow for DC planning. FREDERICK MahajanW
[2024-07-13] MEDS: 0.9% Saline Lock 10 ML Syringe IV ×2 (18:19→21:13)
[2024-07-13] MEDS: levETIRAcetam 500 MG Tablet PO (21:13)
[2024-07-14] MEDS: Cephalexin 500 MG Capsule PO ×3 (05:10→21:25)
[2024-07-14 05:13] VITALS: RESP 16
[2024-07-14 06:40] LABS: Cholesterol 130 mg/dL (200); High Density Lipoprotein 60 mg/dL; Triglycerides 52 mg/dL; Very Low Density Lipoprotein 10 mg/dL (5-40)
[2024-07-14] MEDS: DULoxetine Hcl 30 MG Capsule PO ×2 (08:26→21:26)
[2024-07-14] MEDS: Multivitamin (Healthy Eyes) Capsule 1 CAP PO ×2 (08:26→21:25)
[2024-07-14] MEDS: Calcium Carb/Vitamin D 1 TABLET Tablet PO (08:26)
[2024-07-14 08:27] VITALS: BP 113/58; PULSE 84
[2024-07-14] MEDS: levETIRAcetam 250 MG Tablet PO (08:27)
[2024-07-14] MEDS: Metoprolol(XL)Succ 25 MG Tablet 12.5 MG PO (08:27)
[2024-07-14] MEDS: Cholecalciferol (VIT D3) 25 MCG TABLET (1,000 UNITS) PO (08:29)
[2024-07-14] MEDS: Nystatin Powder 15gm Bottle 1 APPLIC TOPICAL ×2 (08:31→21:25)
[2024-07-14] MEDS: Senna/Docusate Sodium 1 Tablet PO ×2 (08:33→21:34)
[2024-07-14 08:41] LABS: Vitamin D,25 Hydroxy 57.5 ng/mL
[2024-07-14 08:46] VITALS: BP 113/58; PULSE 84; O2SAT 97
--- NOTE | 2024-07-14 08:48 | EX.PCM.CON.G ---
HPI Consult Data Date of Consult: 07/14/24 HPI Narrative Reason for Consultation: GI bleed HPI Narrative: HENRY DEGROOT, is a 84 F with a significant history of hypertension, paroxysmal A-fib CVA, and seizure disorder who presents with syncope. Before the syncope she had lightheadedness and presyncope. She has a history of paroxysmal atrial fibrillation and previous CVA. She has been on Eliquis therapy for her history of CVA associated with atrial fibrillation. I was asked to see her due to worsening lower GI bleeding. Her Eliquis was stopped. She said she had a colonoscopy several years ago but cannot recall if she had any diverticular disease. [facility] Medical History (Updated 07/10/24 @ 18:[address] Manjinder Hernandez MD) Seizure Paroxysmal atrial fibrillation Macular degeneration Left hemiparesis Cerebrovascular disease Gammopathy 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 Snoring Acute right MCA stroke (02/08/16) Obesity (BMI 30.0-34.9) Home Medications ?Medication ?Instructions ?Recorded ?Last Taken ?Type vit C 250 mg-vit E 90 mg-zinc 40 1 ea PO BID eye vitamin 05/07/18 Unknown History mg-copper 1 [id number] capsule levetiracetam 500 mg tablet 500 mg PO QHS Seizures 10/20/18 Unknown History [place] Q Plus 2 tab PO DAILY Heart 07/13/19 Unknown History apixaban 5 mg tablet 5 mg PO BID blood thinner #180 tabs 12/04/19 07/10/24 09:05 Rx acetaminophen 325 mg tablet 325 mg PO Q6H PRN PRN Mild Pain 01/12/21 Unknown History (0-01/11)/Headache pravastatin 10 mg tablet 10 mg PO QODAY CHOLESTEROL 01/12/21 07/08/24 22:55 History calcium carb 133 mg-vitD3 133 1 cap PO DAILY Supplement 02/08/22 Unknown History unit-mag amino acid chelate 67mg capsule (Coral Calcium) cholecalciferol (vitamin D3) 25 25 mcg PO DAILY Supplement 02/08/22 07/10/24 09:05 History mcg (1,000 unit) chewable tablet duloxetine 30 mg capsule,delayed 30 mg PO BID Depression 02/08/22 07/10/24 09:00 History release (Cymbalta) denosumab 60 mg/mL subcutaneous 60 mg subcut [id number] Osteoporosis 05/02/23 Unknown History syringe (Prolia) metoprolol succinate 25 mg 12.5 mg (1/2 x 25 mg) PO DAILY 01/16/24 07/06/24 Rx tablet,extended release 24 hr blood pressure #45 tabs pegcetacoplan (PF) 15 mg/0.1 mL 15 mg intravitreal .[id number] Eyes 07/05/24 Unknown History intravitreal solution (Syfovre (PF)) cephalexin 500 mg capsule 500 mg PO TID UTI #15 caps 07/10/24 Unknown Rx levetiracetam 250 mg tablet 250 mg PO DAILY Seizures 07/10/24 Unknown History sennosides 8.6 mg-docusate sodium 2 tab PO BID PRN PRN Constipation 07/10/24 07/09/24 10:30 Rx 50 mg tablet (Stimulant Laxative #0 tabs Plus) Allergy/AdvReac Type Severity Reaction Status Date / Time No Known Allergies Allergy Verified 07/05/24 08:22 Family History Father CAD (coronary artery disease) Aunt Breast cancer Sister Uterine cancer Surgical History S/P laser cataract surgery History of bilateral cataract extraction History of colonoscopy History of total mastectomy of right breast Social History (Updated 07/10/24 @ 18:[address] Manjinder Hernandez MD) household members: family Smoking Status: Never smoker alcohol intake: never substance use type: does not use Lab / Micro Data 07/13/24 05:05 07/11/24 06:15 Labs: Laboratory Results - last 24 hr 07/14/24 05:11: Triglycerides 52, Cholesterol 130, LDL Cholesterol 60, VLDL Cholesterol 10, HDL Cholesterol 60, Vitamin D 25-Hydroxy 57.5 Assessment & Plan Assessment/Plan (1) Debility: (2) Fall: (3) Syncope: (4) Atrial fibrillation with rapid ventricular response: (5) Urinary tract infection: (6) Seizure disorder: (7) Hyperlipidemia: (8) Depression: (9) Osteoporosis: (10) Stroke: (11) Left hemiparesis: PLAN: Plan 84 year old female with below past medical history hospitalized for syncope 2/2 atrial fibrillation with RVR, complicated by E. Coli urinary tract infection,admitted to TCU with the need to build her strength back up prior to her being discharged to home. While at TCU she was discovered to have lower GI bleeding. This prompted her Eliquis to be stopped. The differential diagnosis for lower GI bleed would be hemorrhoidal disease, diverticular disease, Meckel's diverticulum, ischemic colitis and less likely colitis colitis or microscopic colitis. Also different diagnosis is include inflammatory bowel disease. She should undergo an upper and lower endoscopy to evaluate upper lower GI tract because of her need to go on anticoagulation to prevent another stroke. She was explained alternatives, risk, benefits including not withstanding bleeding, infection, sepsis, perforation, need for emergent surgery and . She will have an ASA of 3. Charges/Coding Visit Charges Inpatient E&M: 89259 [facility] Init L2
--- NOTE | 2024-07-14 08:52 | NURSING ---
Addendum entered by Alonso Palmer 07/14/24 15:25: PER SURGERY,PT IS ONLY TO HAVE THESE MEDS. TOAN SAWYER KEPPRA AND WILL BE UP AROUND 11 AM TO GET PT FOR COLONOSTOMY WITH . Addendum entered by Alonso Palmer 07/14/24 08:59: ORDER STATES OK FOR CLEAR LIQUID 6 HOURS BEFORE PROCEDURE. NO TIME YET ON PROCEDURE. Original Note: IN TO SEE PT. PT WILL HAVE LOWER SCOPE TOMORROW 07/15/24. OK TO GIVE ALL MEDS AND PT IS TO BE NPO AT MIDNIGHT.
[2024-07-14 10:17] VITALS: BMI 31.4
[2024-07-14] MEDS: Ensure Plus High Protein 120 ML LIQUID PO (11:30)
--- NOTE | 2024-07-14 11:32 | NURSING ---
DAUGHTER UPDATED ON COLONOSCOPY TOMORROW 07/15/24 WITH . DAUGHTER ALSO STATED THE PT LAST ONE WAS BACK IN 2009.
[2024-07-14] MEDS: Bisacodyl 5 MG Tablet 20 MG PO (13:36)
[2024-07-14 13:43] VITALS: BP 114/58; PULSE 86; RESP 16; TEMP 36.4; O2SAT 98
[2024-07-14] MEDS: Polyethylene Glycol 3350 BOWEL PREP PO (16:14)
--- NOTE | 2024-07-14 18:31 | NURSING ---
PT GOT 900 ML OF BOWEL PREP DOWN AND HOUR LATER THREW UP 200 ML. RN AWARE,WILL CONTINUE TO MONITOR.
--- NOTE | 2024-07-14 19:41 | NURSING ---
NOTIFIED PT CANT KEEP BOWEL PREP DOWN. NEW ORDER FOR 3 TAP WATER ENEMAS.
[2024-07-14] MEDS: levETIRAcetam 500 MG Tablet PO (21:25)
[2024-07-14] MEDS: Pravastatin 20 MG Tablet 10 MG PO (21:26)
[2024-07-15 06:00] VITALS: BP 114/46; PULSE 85; RESP 18; TEMP 36.4; O2SAT 96; BMI 31.4
--- NOTE | 2024-07-15 09:02 | CASEMGMT ---
Addendum entered by Chelsea Tan 07/15/24 10:58: SW educated to and provided resources for medical alert, [place] and [facility]. Original Note: Social Work IDT met with patient and two daughters for care plan meeting. Discussed patient's progress in PT/OT/ST/SN. Educated to [facility] insurance with [employer]D 07/17 and continued stay is not guaranteed with each review. Pt's goal is to DC returning living with dtr and ALEXSANDRA for assistance as needed. Dtr provided advanced directives and SW placed copies on chart. Dtr, Katherine, is HCPOA. SW phone registration to adjust that in the EMR. SW to coordinate any DC needs. Will continue to follow. Chelsea Tan, [employer]INEERING [employer]ECTURER
[2024-07-15 09:23] VITALS: BP 108/46; PULSE 85
[2024-07-15] MEDS: levETIRAcetam 250 MG Tablet PO (09:23)
[2024-07-15] MEDS: Metoprolol(XL)Succ 25 MG Tablet 12.5 MG PO (09:23)
[2024-07-15] MEDS: DULoxetine Hcl 30 MG Capsule PO ×2 (09:23→20:53)
--- NOTE | 2024-07-15 10:15 | NURSING ---
Patient picked up to go for Colonoscopy at this time.
--- NOTE | 2024-07-15 13:10 | NURSING ---
Return from colonoscopy at this time. Tolerated well. Given jello and ensure per patient request. Refused a full lunch. Patient denies further needs at this me.
[2024-07-15] MEDS: Cephalexin 500 MG Capsule PO ×2 (14:04→20:57)
[2024-07-15] MEDS: Nystatin Powder 15gm Bottle 1 APPLIC TOPICAL ×2 (14:07→20:54)
[2024-07-15] MEDS: Ensure Plus High Protein 120 ML LIQUID PO (14:09)
[2024-07-15 14:22] VITALS: BP 106/54; PULSE 82; RESP 16; TEMP 36.4; O2SAT 94
[2024-07-15 16:08] VITALS: PULSE 72; RESP 16; O2SAT 96
[2024-07-15] MEDS: levETIRAcetam 500 MG Tablet PO (20:53)
[2024-07-15] MEDS: Multivitamin (Healthy Eyes) Capsule 1 CAP PO (20:54)
[2024-07-15] MEDS: Acetaminophen 500 MG Tablet 1000 MG PO (20:55)
[2024-07-15] MEDS: Senna/Docusate Sodium 1 Tablet PO (20:59)
[2024-07-16 08:24] VITALS: PULSE 75
[2024-07-16] MEDS: Metoprolol(XL)Succ 25 MG Tablet 12.5 MG PO (08:24)
[2024-07-16] MEDS: levETIRAcetam 250 MG Tablet PO (08:24)
[2024-07-16] MEDS: Calcium Carb/Vitamin D 1 TABLET Tablet PO (08:24)
[2024-07-16] MEDS: DULoxetine Hcl 30 MG Capsule PO ×2 (08:24→20:49)
[2024-07-16] MEDS: Cholecalciferol (VIT D3) 25 MCG TABLET (1,000 UNITS) PO (08:24)
[2024-07-16] MEDS: Multivitamin (Healthy Eyes) Capsule 1 CAP PO ×2 (08:25→20:49)
[2024-07-16] MEDS: Nystatin Powder 15gm Bottle 1 APPLIC TOPICAL ×2 (08:26→20:49)
[2024-07-16] MEDS: Ensure Plus High Protein 120 ML LIQUID PO ×2 (08:28→13:26)
[2024-07-16 10:00] VITALS: PULSE 75; RESP 14; O2SAT 95
--- NOTE | 2024-07-16 15:38 | MDS.RN ---
MDS pain interview complete.
[2024-07-16 16:00] VITALS: BP 112/72; PULSE 80; RESP 14; TEMP 36.1; O2SAT 95
[2024-07-16] MEDS: Pravastatin 20 MG Tablet 10 MG PO (20:48)
[2024-07-16] MEDS: 0.9% Saline Lock 10 ML Syringe IV (20:48)
[2024-07-16] MEDS: levETIRAcetam 500 MG Tablet PO (20:49)
--- NOTE | 2024-07-16 20:54 | NURSING ---
CONSTRUCTION EQUIPMENT TECHNICIAN reports patient refusing seizure pads despite order for seizure precautions. Patient is A&Ox4. Educated by this nurse on seizure precautions, patient states I don't want them, I haven't had a seizure in a long time. Refuses despite education, pads removed from siderails per pt. request.
[2024-07-17 06:04] LABS: Absolute Lymphocyte Count 1.92 X10^3/uL (0.83-4.51); Absolute Neutrophil Count 4.9 X10^3/uL (2.0-7.7); Basophil# 0.03 X10^3/uL; Basophil% 0.4 % (0-1); Eosinophil# 0.23 X10^3/uL; Eosinophils% 2.9 % (0-5); Hematocrit 35.2 % (37-47); Hemoglobin 11.2 g/dL (12.0-15.0); Lymphocyte # 1.92 X10^3/ul (0.83-4.51); Lymphocyte % 23.9 % (19-41); Mean Corp Hgb Conc 31.8 g/dL (32-36); Mean Corpuscular Volume 100.6 fL (81-99); Mean Platelet Vol. 10.9 fl (6.2-12.0); Monocyte% 11.2 % (0-10); NRBC Flagged by Analyzer 0 % (0-5); Neutrophil # 4.93 X10^3/uL (2.7-7.7); Neutrophil % 61.2 % (47-70); Platelet Count 320 K/mm3 (150-450); RBC Distribution Width CV 12.7 % (11.6-14.6)
[2024-07-17 06:38] LABS: Anion Gap 4 (5-15); BUN 17 mg/dL (7-18); BUN/Creat Ratio 28.6 RATIO (10-20); Calcium,Total 8.8 mg/dL (8.5-10.1); Chloride 107 mmol/L (98-107); Creatinine, Serum 0.59 mg/dL (0.55-1.02); EST Glomerular Filtration Rate 102 mL/min (>60); Est Glom Filt Rate - Afr Amer 124 mL/min (>60); Estimated Creatinine Clearance 52.57 ml/min; Glucose 94 mg/dL (74-106); Potassium 4.1 mmol/L (3.5-5.1); Sodium Level 139 mmol/L (136-145)
[2024-07-17] MEDS: Multivitamin (Healthy Eyes) Capsule 1 CAP PO ×2 (08:17→21:46)
[2024-07-17] MEDS: Calcium Carb/Vitamin D 1 TABLET Tablet PO (08:17)
[2024-07-17] MEDS: DULoxetine Hcl 30 MG Capsule PO ×2 (08:17→21:46)
[2024-07-17] MEDS: Ensure Plus High Protein 120 ML LIQUID PO ×2 (08:17→13:23)
[2024-07-17] MEDS: levETIRAcetam 250 MG Tablet PO (08:17)
[2024-07-17] MEDS: Cholecalciferol (VIT D3) 25 MCG TABLET (1,000 UNITS) PO (08:17)
[2024-07-17 08:20] VITALS: BP 112/55; PULSE 78
[2024-07-17] MEDS: Metoprolol(XL)Succ 25 MG Tablet 12.5 MG PO (08:20)
[2024-07-17] MEDS: Nystatin Powder 15gm Bottle 1 APPLIC TOPICAL ×2 (08:31→21:46)
[2024-07-17 08:32] VITALS: PULSE 78; RESP 16; O2SAT 99
--- NOTE | 2024-07-17 08:44 | NURSING ---
Help Desk Assistant Note; MDS for 07/17/2024 Complete
[2024-07-17 10:26] VITALS: BP 112/55; PULSE 78; RESP 16; TEMP 36.3; O2SAT 99
--- NOTE | 2024-07-17 10:50 | CASEMGMT ---
Social Work SW conducted BIMS () and PHQ-9 (05/30) completed for MDS assessment. Pt explained she isn't doing anything, which impacts her lack of interest in doing things, feeling tired, and having poor appetite. Pt reports having trouble sleeping d/t needing to sleep on her back, which she is not used to. SW educated to the importance of eating, which will improve her energy levels and give her body fuel to work with therapy, then pt can DC home. SW offered ongoing supportive visits as needed. Chelsea Tan, [employer] LEADER SURGICAL PRODUCT SALES CONSULTANT
--- NOTE | 2024-07-17 15:05 | NURSING ---
Patient requested something to help her sleep. New order for Melatonin 3mg qhs received.
[2024-07-17] MEDS: levETIRAcetam 500 MG Tablet PO (21:46)
[2024-07-17] MEDS: MELATONIN 3 MG TABLET PO (21:46)
[2024-07-17] MEDS: 0.9% Saline Lock 10 ML Syringe IV (21:46)
[2024-07-18 09:06] VITALS: BP 95/43; PULSE 75; RESP 16; TEMP 36.8; O2SAT 97
[2024-07-18] MEDS: Ensure Plus High Protein 120 ML LIQUID PO ×3 (09:13→16:31)
[2024-07-18] MEDS: APIXABAN 5 MG TABLET PO ×2 (09:13→21:28)
[2024-07-18] MEDS: 0.9% Saline Lock 10 ML Syringe IV ×2 (09:14→21:28)
[2024-07-18] MEDS: Acetaminophen 500 MG Tablet 1000 MG PO ×2 (09:14→21:31)
[2024-07-18] MEDS: Multivitamin (Healthy Eyes) Capsule 1 CAP PO ×2 (09:14→21:27)
[2024-07-18] MEDS: Tuberculin,Purif.prot.deriv. 50 TU/ML Vial 0.1 ML ID (09:18)
[2024-07-18] MEDS: Nystatin Powder 15gm Bottle 1 APPLIC TOPICAL ×2 (09:20→21:28)
[2024-07-18 10:10] VITALS: BP 100/51
[2024-07-18 11:01] VITALS: PULSE 75
[2024-07-18] MEDS: DULoxetine Hcl 30 MG Capsule PO ×2 (11:01→21:27)
[2024-07-18] MEDS: Metoprolol(XL)Succ 25 MG Tablet 12.5 MG PO (11:01)
[2024-07-18] MEDS: Calcium Carb/Vitamin D 1 TABLET Tablet PO (11:01)
[2024-07-18] MEDS: levETIRAcetam 250 MG Tablet PO (11:01)
[2024-07-18] MEDS: Cholecalciferol (VIT D3) 25 MCG TABLET (1,000 UNITS) PO (11:01)
[2024-07-18 21:00] VITALS: PULSE 73; RESP 16
[2024-07-18] MEDS: levETIRAcetam 500 MG Tablet PO (21:27)
[2024-07-18] MEDS: Pravastatin 20 MG Tablet 10 MG PO (21:27)
[2024-07-18] MEDS: MELATONIN 3 MG TABLET PO (21:27)
[2024-07-19] MEDS: Ensure Plus High Protein 120 ML LIQUID PO ×3 (07:51→17:13)
[2024-07-19] MEDS: 0.9% Saline Lock 10 ML Syringe IV ×2 (07:55→21:14)
[2024-07-19 07:56] VITALS: PULSE 77
[2024-07-19] MEDS: Calcium Carb/Vitamin D 1 TABLET Tablet PO (07:56)
[2024-07-19] MEDS: DULoxetine Hcl 30 MG Capsule PO ×2 (07:56→21:11)
[2024-07-19] MEDS: levETIRAcetam 250 MG Tablet PO (07:56)
[2024-07-19] MEDS: Metoprolol(XL)Succ 25 MG Tablet 12.5 MG PO (07:56)
[2024-07-19] MEDS: Cholecalciferol (VIT D3) 25 MCG TABLET (1,000 UNITS) PO (07:56)
[2024-07-19] MEDS: APIXABAN 5 MG TABLET PO ×2 (07:57→21:11)
[2024-07-19] MEDS: Multivitamin (Healthy Eyes) Capsule 1 CAP PO ×2 (07:57→21:11)
[2024-07-19] MEDS: Nystatin Powder 15gm Bottle 1 APPLIC TOPICAL ×2 (08:00→21:10)
[2024-07-19 08:01] VITALS: BP 118/57; PULSE 77; RESP 14; TEMP 36.4; O2SAT 94
[2024-07-19] MEDS: MELATONIN 3 MG TABLET PO (21:11)
[2024-07-19] MEDS: levETIRAcetam 500 MG Tablet PO (21:11)
[2024-07-20 09:30] VITALS: BP 97/43; PULSE 75; RESP 16; TEMP 36.6; O2SAT 100
[2024-07-20] MEDS: DULoxetine Hcl 30 MG Capsule PO ×2 (09:33→22:54)
[2024-07-20] MEDS: Calcium Carb/Vitamin D 1 TABLET Tablet PO (09:33)
[2024-07-20] MEDS: Nystatin Powder 15gm Bottle 1 APPLIC TOPICAL ×2 (09:34→22:53)
[2024-07-20] MEDS: Multivitamin (Healthy Eyes) Capsule 1 CAP PO ×2 (09:34→22:53)
[2024-07-20] MEDS: APIXABAN 5 MG TABLET PO ×2 (09:34→22:53)
[2024-07-20] MEDS: levETIRAcetam 250 MG Tablet PO (09:34)
[2024-07-20] MEDS: Cholecalciferol (VIT D3) 25 MCG TABLET (1,000 UNITS) PO (09:34)
[2024-07-20 09:35] VITALS: PULSE 75
[2024-07-20] MEDS: Metoprolol(XL)Succ 25 MG Tablet 12.5 MG PO (09:35)
[2024-07-20] MEDS: Ensure Plus High Protein 120 ML LIQUID PO ×3 (11:08→18:11)
[2024-07-20] MEDS: 0.9% Saline Lock 10 ML Syringe IV (22:50)
[2024-07-20] MEDS: levETIRAcetam 500 MG Tablet PO (22:53)
[2024-07-20] MEDS: Pravastatin 20 MG Tablet 10 MG PO (22:53)
[2024-07-20] MEDS: Acetaminophen 500 MG Tablet 1000 MG PO (22:53)
[2024-07-20] MEDS: MELATONIN 3 MG TABLET PO (22:53)
[2024-07-20 22:55] VITALS: RESP 16
[2024-07-21 05:51] VITALS: RESP 16
[2024-07-21] MEDS: APIXABAN 5 MG TABLET PO ×2 (09:20→20:03)
[2024-07-21] MEDS: DULoxetine Hcl 30 MG Capsule PO ×2 (09:20→20:03)
[2024-07-21] MEDS: Calcium Carb/Vitamin D 1 TABLET Tablet PO (09:20)
[2024-07-21] MEDS: levETIRAcetam 250 MG Tablet PO (09:21)
[2024-07-21] MEDS: Multivitamin (Healthy Eyes) Capsule 1 CAP PO ×2 (09:21→20:03)
[2024-07-21 09:22] VITALS: BP 101/49; PULSE 70
[2024-07-21] MEDS: Cholecalciferol (VIT D3) 25 MCG TABLET (1,000 UNITS) PO (09:22)
[2024-07-21] MEDS: Metoprolol(XL)Succ 25 MG Tablet 12.5 MG PO (09:22)
[2024-07-21] MEDS: Acetaminophen 500 MG Tablet 1000 MG PO ×2 (09:25→20:02)
[2024-07-21] MEDS: Nystatin Powder 15gm Bottle 1 APPLIC TOPICAL ×2 (09:30→20:03)
[2024-07-21 10:34] VITALS: BMI 31.0
[2024-07-21] MEDS: Ensure Plus High Protein 120 ML LIQUID PO ×2 (13:19→18:46)
[2024-07-21 13:27] VITALS: BP 102/45; PULSE 69; RESP 16; TEMP 36.4; O2SAT 98
--- NOTE | 2024-07-21 14:46 | CHAPLAIN ---
Type of Pastoral Visit _x__ Initial Visit ___ Follow-up Visit ___ On-call Visit ___ General Patient Visit ___ Spiritual Assessment ___ Family Conference ___ Bereavement ___ Rapid Response ___ Code Blue ___ Other (describe below) Pastoral Care Referral From _x__ Patient ___ Family ___ Nurse ___ Physician ___ Company Accountant ___ Crime Scene Evidence Technician ___ Other (describe below) Sacrament/Intervention _x__ Active listening ___ Anointing ___ Cheondoism ___ Bereavement ___ Communion ___ Mayela exploration ___ ___ Life review _x__ Prayer ___ Reconciliation ___ Sacrament of Sick ___ Supportive presence ___ Wedding ___ Other (describe below) Pastoral Comments patient remembers this manager in training from her previous admission to the rehab unit last year; 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
[2024-07-21] MEDS: COVID VAC 24-25 (12UP)(MODERNA)/PF 50 MCG/0.5 ML SYRINGE IM (18:47)
[2024-07-21] MEDS: 0.9% Saline Lock 10 ML Syringe IV (18:54)
[2024-07-21] MEDS: levETIRAcetam 500 MG Tablet PO (20:03)
[2024-07-21] MEDS: MELATONIN 3 MG TABLET PO (20:03)
[2024-07-22 07:59] VITALS: BP 104/47; PULSE 72; RESP 16; O2SAT 97
[2024-07-22] MEDS: Calcium Carb/Vitamin D 1 TABLET Tablet PO (08:00)
[2024-07-22] MEDS: Ensure Plus High Protein 120 ML LIQUID PO ×2 (08:00→12:28)
[2024-07-22] MEDS: levETIRAcetam 250 MG Tablet PO (08:01)
[2024-07-22] MEDS: DULoxetine Hcl 30 MG Capsule PO ×2 (08:01→20:09)
[2024-07-22] MEDS: Cholecalciferol (VIT D3) 25 MCG TABLET (1,000 UNITS) PO (08:01)
[2024-07-22] MEDS: APIXABAN 5 MG TABLET PO ×2 (08:01→20:09)
[2024-07-22] MEDS: Multivitamin (Healthy Eyes) Capsule 1 CAP PO ×2 (08:01→20:08)
[2024-07-22 08:02] VITALS: BP 104/47; PULSE 72
[2024-07-22] MEDS: Metoprolol(XL)Succ 25 MG Tablet 12.5 MG PO (08:02)
[2024-07-22] MEDS: Nystatin Powder 15gm Bottle 1 APPLIC TOPICAL ×2 (08:05→20:13)
[2024-07-22] MEDS: Acetaminophen 500 MG Tablet 1000 MG PO (12:28)
--- NOTE | 2024-07-22 12:48 | MDS.RN ---
Information for the MDS was obtained from review of the clinical record, interview of resident, staff, and direct observation of resident?s care.
[2024-07-22] MEDS: Pravastatin 20 MG Tablet 10 MG PO (20:07)
[2024-07-22] MEDS: MELATONIN 3 MG TABLET PO (20:08)
[2024-07-22] MEDS: levETIRAcetam 500 MG Tablet PO (20:09)
[2024-07-23] MEDS: Acetaminophen 500 MG Tablet 1000 MG PO (09:48)
[2024-07-23 09:49] VITALS: BP 113/47; PULSE 82
[2024-07-23] MEDS: Multivitamin (Healthy Eyes) Capsule 1 CAP PO ×2 (09:49→20:45)
[2024-07-23] MEDS: Metoprolol(XL)Succ 25 MG Tablet 12.5 MG PO (09:49)
[2024-07-23] MEDS: Calcium Carb/Vitamin D 1 TABLET Tablet PO (09:49)
[2024-07-23] MEDS: APIXABAN 5 MG TABLET PO ×2 (09:49→20:45)
[2024-07-23] MEDS: Cholecalciferol (VIT D3) 25 MCG TABLET (1,000 UNITS) PO (09:49)
[2024-07-23] MEDS: DULoxetine Hcl 30 MG Capsule PO ×2 (09:51→20:45)
[2024-07-23] MEDS: Nystatin Powder 15gm Bottle 1 APPLIC TOPICAL ×2 (09:51→20:45)
[2024-07-23] MEDS: levETIRAcetam 250 MG Tablet PO (09:51)
[2024-07-23 09:55] VITALS: BP 113/47; PULSE 82; O2SAT 96
[2024-07-23 15:43] VITALS: BP 97/50; PULSE 82; RESP 16; TEMP 36.1; O2SAT 100
--- NOTE | 2024-07-23 17:59 | NURSING ---
NO BM IN 3 DAYS. PRUNE JUICE AND BUTTER GIVEN.
[2024-07-23 20:00] VITALS: PULSE 74; RESP 18; O2SAT 99
[2024-07-23] MEDS: levETIRAcetam 500 MG Tablet PO (20:45)
[2024-07-23] MEDS: MELATONIN 3 MG TABLET PO (20:45)
[2024-07-24 08:22] LABS: Absolute Lymphocyte Count 1.63 X10^3/uL (0.83-4.51); Absolute Neutrophil Count 3.4 X10^3/uL (2.0-7.7); Basophil# 0.03 X10^3/uL; Basophil% 0.5 % (0-1); Eosinophil# 0.17 X10^3/uL; Eosinophils% 2.7 % (0-5); Hemoglobin 12.4 g/dL (12.0-15.0); Lymphocyte # 1.63 X10^3/ul (0.83-4.51); Mean Corp Hgb Conc 31.8 g/dL (32-36); Mean Corpuscular Hgb 32.3 pg (27.0-32.0); Mean Corpuscular Volume 101.6 fL (81-99); Monocyte# 1.04 X10^3/uL; Monocyte% 16.6 % (0-10); NRBC Flagged by Analyzer 0 % (0-5); Neutrophil # 3.37 X10^3/uL (2.7-7.7); Neutrophil % 53.7 % (47-70); Platelet Count 312 K/mm3 (150-450); RBC Distribution Width CV 12.8 % (11.6-14.6); RBC Distribution Width SD 47.8 fl (35.1-43.9); Red Blood Count 3.84 M/mm3 (4.2-5.4); White Blood Count 6.3 K/mm3 (4.4-11.0)
[2024-07-24 08:48] LABS: Anion Gap 7 (5-15); BUN 17 mg/dL (7-18); Calcium,Total 9.2 mg/dL (8.5-10.1); Chloride 106 mmol/L (98-107); Creatinine, Serum 0.71 mg/dL (0.55-1.02); EST Glomerular Filtration Rate 84 mL/min (>60); Est Glom Filt Rate - Afr Amer 101 mL/min (>60); Estimated Creatinine Clearance 51.08 ml/min; Glucose 91 mg/dL (74-106); Potassium 4.2 mmol/L (3.5-5.1); Sodium Level 139 mmol/L (136-145)
[2024-07-24] MEDS: Calcium Carb/Vitamin D 1 TABLET Tablet PO (09:37)
[2024-07-24] MEDS: DULoxetine Hcl 30 MG Capsule PO ×2 (09:40→22:05)
[2024-07-24 09:41] VITALS: BP 110/56; PULSE 70
[2024-07-24] MEDS: APIXABAN 5 MG TABLET PO ×2 (09:41→22:05)
[2024-07-24] MEDS: Nystatin Powder 15gm Bottle 1 APPLIC TOPICAL ×2 (09:41→22:05)
[2024-07-24] MEDS: levETIRAcetam 250 MG Tablet PO (09:41)
[2024-07-24] MEDS: Metoprolol(XL)Succ 25 MG Tablet 12.5 MG PO (09:41)
[2024-07-24] MEDS: Multivitamin (Healthy Eyes) Capsule 1 CAP PO ×2 (09:41→22:04)
[2024-07-24] MEDS: Cholecalciferol (VIT D3) 25 MCG TABLET (1,000 UNITS) PO (09:42)
[2024-07-24] MEDS: Senna/Docusate Sodium 1 Tablet PO (09:43)
[2024-07-24 09:48] VITALS: BP 110/56; PULSE 70; O2SAT 99
--- NOTE | 2024-07-24 12:56 | NURSING ---
Addendum entered by Michela Campbell 07/27/24 07:46: Spoke with daughter and resident about covid vaccine concern on 07/24/24. Discussed that vaccine had been ordered as resident was A&O x3 and agreed she'd like to take it. Per dtr she wants her mom to get the covid vaccine but likes to wait until later in the fall. She said she feels waiting til September gets her through the season best. She also asked that resident not receive the flu vaccine while here. Let her know RN would put a note in chart so staff would know. Resident and daughter were very polite and understanding, had no other questions at that time. Nursing communication placed about not giving flu vaccine. Original Note: DAUGHTER WANTED TO TALK TO THIS NURSE AND DAUGHTER STATED SHE DID NOT WANT PT TO GET THE COVID VACCINE TILL SEPTEMBER DUE TO PT REACTION FROM LAST ONE AND HAD TO BRING HER MOM TO THE ER. DAUGHTER WANTED TO KNOW WHO GAVE THE OK TO GIVE HER MOM THE SHOT. THIS NURSE STATED THAT THE CHARGE/RN GOES AROUND AND ASKS THE PT IF THEY WOULD LIKE THE COVID SHOT AND ONLY ASKS THE PTS THAT ARE ALERT AND ORIENTED AND THAT HER MOM IS ALERT AND ORIENTED X3 AND GAVE THE PERMISSION TO RECEIVE THE COVID SHOT. DAUGHTER STATED THAT HER MOM THOUGHT SHE [DAUGHTER] GAVE THE OK TO RECEIVE THE COVID SHOT. DAUGHTER STATED I ALSO LIKE TO KEEP A RECORD OF ALL SHOTS. THIS NURSE GAVE DAUGHTER THE INFO ON THE COVID SHOT. DAUGHTER ALSO STATED THAT SHE DOES NOT WANT HER MOM TO GET THE FLU SHOT WHILE HERE AND WILL GET HER MOM THE FLU SHOT IN SEPTEMBER. RN AWARE.
[2024-07-24 14:20] VITALS: PULSE 78; RESP 18; O2SAT 97
[2024-07-24 16:00] VITALS: BP 101/45; PULSE 76; RESP 16; TEMP 36.5; O2SAT 99
--- NOTE | 2024-07-24 16:24 | NURSING ---
PER THERAPY DAUGHTER IS ALLOWED TO WALK PT IN ROOM AND LOZA WITH WALKER AND GAIT BELT.
[2024-07-24] MEDS: Acetaminophen 500 MG Tablet 1000 MG PO (22:03)
[2024-07-24] MEDS: Pravastatin 20 MG Tablet 10 MG PO (22:04)
[2024-07-24] MEDS: levETIRAcetam 500 MG Tablet PO (22:04)
[2024-07-24] MEDS: MELATONIN 3 MG TABLET PO (22:05)
[2024-07-25] MEDS: Calcium Carb/Vitamin D 1 TABLET Tablet PO (08:59)
[2024-07-25] MEDS: levETIRAcetam 250 MG Tablet PO (09:00)
[2024-07-25] MEDS: Multivitamin (Healthy Eyes) Capsule 1 CAP PO ×2 (09:00→21:52)
[2024-07-25] MEDS: DULoxetine Hcl 30 MG Capsule PO ×2 (09:00→21:52)
[2024-07-25] MEDS: APIXABAN 5 MG TABLET PO ×2 (09:00→21:52)
[2024-07-25 09:01] VITALS: BP 113/46; PULSE 71
[2024-07-25] MEDS: Metoprolol(XL)Succ 25 MG Tablet 12.5 MG PO (09:01)
[2024-07-25] MEDS: Cholecalciferol (VIT D3) 25 MCG TABLET (1,000 UNITS) PO (09:02)
[2024-07-25] MEDS: Nystatin Powder 15gm Bottle 1 APPLIC TOPICAL ×2 (09:05→21:53)
[2024-07-25 12:08] VITALS: BP 113/46; PULSE 71; RESP 16; TEMP 36.2; O2SAT 95
[2024-07-25] MEDS: levETIRAcetam 500 MG Tablet PO (21:53)
[2024-07-25] MEDS: MELATONIN 3 MG TABLET PO (21:53)
[2024-07-26] MEDS: Calcium Carb/Vitamin D 1 TABLET Tablet PO (12:00)
[2024-07-26] MEDS: APIXABAN 5 MG TABLET PO ×2 (12:00→23:08)
[2024-07-26 12:01] VITALS: BP 106/50; PULSE 66
[2024-07-26] MEDS: DULoxetine Hcl 30 MG Capsule PO ×2 (12:01→23:08)
[2024-07-26] MEDS: levETIRAcetam 250 MG Tablet PO (12:01)
[2024-07-26] MEDS: Cholecalciferol (VIT D3) 25 MCG TABLET (1,000 UNITS) PO (12:01)
[2024-07-26] MEDS: Metoprolol(XL)Succ 25 MG Tablet 12.5 MG PO (12:01)
[2024-07-26] MEDS: Multivitamin (Healthy Eyes) Capsule 1 CAP PO ×2 (12:03→23:08)
[2024-07-26] MEDS: Nystatin Powder 15gm Bottle 1 APPLIC TOPICAL ×2 (12:04→23:09)
[2024-07-26 16:00] VITALS: BP 106/50; PULSE 69; RESP 16; TEMP 36.5; O2SAT 97
[2024-07-26 17:16] VITALS: RESP 16
[2024-07-26] MEDS: MELATONIN 3 MG TABLET PO (23:08)
[2024-07-26] MEDS: levETIRAcetam 500 MG Tablet PO (23:08)
[2024-07-26] MEDS: Pravastatin 20 MG Tablet 10 MG PO (23:08)
[2024-07-26] MEDS: Acetaminophen 500 MG Tablet 1000 MG PO (23:10)
[2024-07-27] MEDS: Acetaminophen 500 MG Tablet 1000 MG PO (05:32)
[2024-07-27] MEDS: APIXABAN 5 MG TABLET PO ×2 (09:24→21:06)
[2024-07-27] MEDS: Multivitamin (Healthy Eyes) Capsule 1 CAP PO ×2 (09:24→21:06)
[2024-07-27] MEDS: DULoxetine Hcl 30 MG Capsule PO ×2 (09:24→21:05)
[2024-07-27] MEDS: Calcium Carb/Vitamin D 1 TABLET Tablet PO (09:24)
[2024-07-27] MEDS: Nystatin Powder 15gm Bottle 1 APPLIC TOPICAL ×2 (09:25→21:06)
[2024-07-27] MEDS: levETIRAcetam 250 MG Tablet PO (09:25)
[2024-07-27] MEDS: Cholecalciferol (VIT D3) 25 MCG TABLET (1,000 UNITS) PO (09:26)
[2024-07-27] MEDS: Senna/Docusate Sodium 1 Tablet PO ×2 (09:28→21:09)
[2024-07-27 09:30] VITALS: BP 110/48; PULSE 64
[2024-07-27] MEDS: Metoprolol(XL)Succ 25 MG Tablet 12.5 MG PO (09:30)
[2024-07-27 09:35] VITALS: BP 110/48; PULSE 64
[2024-07-27 15:15] VITALS: BP 147/56; PULSE 74; RESP 16; TEMP 36.1; O2SAT 99
[2024-07-27 18:45] VITALS: PULSE 74; RESP 18; O2SAT 98
[2024-07-27] MEDS: levETIRAcetam 500 MG Tablet PO (21:05)
[2024-07-27] MEDS: MELATONIN 3 MG TABLET PO (21:05)
[2024-07-28 08:00] VITALS: BP 115/47; PULSE 72; RESP 18; TEMP 36.2; O2SAT 97
[2024-07-28 08:02] VITALS: BP 115/47; PULSE 72
[2024-07-28] MEDS: DULoxetine Hcl 30 MG Capsule PO ×2 (08:02→20:59)
[2024-07-28] MEDS: Metoprolol(XL)Succ 25 MG Tablet 12.5 MG PO (08:02)
[2024-07-28] MEDS: APIXABAN 5 MG TABLET PO ×2 (08:02→20:59)
[2024-07-28] MEDS: levETIRAcetam 250 MG Tablet PO (08:02)
[2024-07-28] MEDS: Cholecalciferol (VIT D3) 25 MCG TABLET (1,000 UNITS) PO (08:03)
[2024-07-28] MEDS: Multivitamin (Healthy Eyes) Capsule 1 CAP PO ×2 (08:03→20:59)
[2024-07-28] MEDS: Calcium Carb/Vitamin D 1 TABLET Tablet PO (08:03)
[2024-07-28] MEDS: Senna/Docusate Sodium 1 Tablet PO ×2 (08:07→21:04)
[2024-07-28] MEDS: Nystatin Powder 15gm Bottle 1 APPLIC TOPICAL ×2 (08:07→21:00)
[2024-07-28 15:35] VITALS: BMI 30.9
[2024-07-28] MEDS: Pravastatin 20 MG Tablet 10 MG PO (20:59)
[2024-07-28] MEDS: MELATONIN 3 MG TABLET PO (21:00)
[2024-07-28] MEDS: levETIRAcetam 500 MG Tablet PO (21:00)
[2024-07-29] MEDS: Calcium Carb/Vitamin D 1 TABLET Tablet PO (08:17)
[2024-07-29] MEDS: APIXABAN 5 MG TABLET PO ×2 (08:18→22:44)
[2024-07-29] MEDS: DULoxetine Hcl 30 MG Capsule PO ×2 (08:18→22:44)
[2024-07-29 08:19] VITALS: BP 105/51; PULSE 71
[2024-07-29] MEDS: Multivitamin (Healthy Eyes) Capsule 1 CAP PO ×2 (08:19→22:44)
[2024-07-29] MEDS: Nystatin Powder 15gm Bottle 1 APPLIC TOPICAL ×2 (08:19→22:44)
[2024-07-29] MEDS: Metoprolol(XL)Succ 25 MG Tablet 12.5 MG PO (08:19)
[2024-07-29] MEDS: Cholecalciferol (VIT D3) 25 MCG TABLET (1,000 UNITS) PO (08:20)
[2024-07-29] MEDS: Senna/Docusate Sodium 1 Tablet PO (08:22)
[2024-07-29] MEDS: levETIRAcetam 250 MG Tablet PO (08:23)
[2024-07-29 08:28] VITALS: BP 105/51; PULSE 71; O2SAT 99
[2024-07-29 13:20] VITALS: PULSE 61; RESP 16; O2SAT 95
[2024-07-29 14:58] VITALS: BP 108/54; PULSE 70; RESP 16; TEMP 36.1; O2SAT 95
[2024-07-29] MEDS: levETIRAcetam 500 MG Tablet PO (22:44)
[2024-07-29] MEDS: MELATONIN 3 MG TABLET PO (22:44)
[2024-07-30] MEDS: DULoxetine Hcl 30 MG Capsule PO ×2 (08:11→19:58)
[2024-07-30] MEDS: Calcium Carb/Vitamin D 1 TABLET Tablet PO (08:11)
[2024-07-30] MEDS: levETIRAcetam 250 MG Tablet PO (08:12)
[2024-07-30] MEDS: Multivitamin (Healthy Eyes) Capsule 1 CAP PO ×2 (08:12→19:58)
[2024-07-30] MEDS: APIXABAN 5 MG TABLET PO ×2 (08:12→19:58)
[2024-07-30 08:13] VITALS: BP 118/43; PULSE 78
[2024-07-30] MEDS: Cholecalciferol (VIT D3) 25 MCG TABLET (1,000 UNITS) PO (08:13)
[2024-07-30] MEDS: Metoprolol(XL)Succ 25 MG Tablet 12.5 MG PO (08:13)
[2024-07-30] MEDS: Senna/Docusate Sodium 1 Tablet PO ×2 (08:16→20:03)
--- NOTE | 2024-07-30 09:03 | CASEMGMT ---
Addendum entered by Chelsea Tan 07/30/24 13:05: [facility] CC denied. [facility]. Addendum entered by Chelsea Tan 07/30/24 11:56: Received follow up email from dtr requesting to change DC to 08/02 d/t a family function. Dtr also selected HHC agencies: [facility], [facility], [facility]. DC date adjusted. Referrals sent via Dragonplay. Plan: DC 08/02 Original Note: Social Work SW received call from dtr, Marylou, requesting to set DC date for pt. SW agreed and offered any date convenient for dtr. Dtr selected 08/03 and prefers HHC. SW offered to send list of skilled HHC agencies with quality and resource data via Dragonplay Guide link. Dtr provided email and SW sent list. Dtr inquired about how long pt will need assistance and supervision, explaining her busy work season starts in August and will be gone for extremely long days. SW explained per HHC and dtr's judgement, once pt returns her to environment, that determination can be made. However, noted August is the week of pt's DC and does suggest to coordinating additional help for pt initially. Educated to private duty DIRECTOR OF MIDWIFERY/STAFF MIDWIFE and [place]. Offered to send dtr resources. Dtr agreed. Briefly discussed [place], which dtr is agreeable to, but states pt is not there yet. Pt has no DME needs at DC and dtr to transport. SW emailed dtr resources for private duty DIRECTOR OF MIDWIFERY/STAFF MIDWIFE, [place], [place] list, medical alert and transportation information. Will await skilled HHC selection. Plan: DC home 08/03, HHC PT/OT [facility]ER[facility] Mahajan
--- NOTE | 2024-07-30 13:06 | CHAPLAIN ---
Type of Pastoral Visit ___ Initial Visit _x__ Follow-up Visit ___ On-call Visit ___ General Patient Visit ___ Spiritual Assessment ___ Family Conference ___ Bereavement ___ Rapid Response ___ Code Blue ___ Other (describe below) Pastoral Care Referral From _x__ Patient ___ Family ___ Nurse ___ Physician ___ Die Operator ___ Electrical Engineer Mep ___ Other (describe below) Sacrament/Intervention _x__ Active listening ___ Anointing ___ Christianity ___ Bereavement ___ Communion ___ Mayela exploration ___ _x__ Life review _x__ Prayer ___ Reconciliation ___ Sacrament of Sick ___ Supportive presence ___ Wedding ___ Other (describe below) Pastoral Comments patient was napping in her chair but awoke easily to her name; pt is welcoming; pt answers questions but does not engage much in conversation; pt is pleasant and says that she is doing pretty well; pt goal is to get home soon as I've been here a long time; some discussion on past winter trips to [place]; prayer is welcomed for support today
[2024-07-30] MEDS: Nystatin Powder 15gm Bottle 1 APPLIC TOPICAL ×2 (13:49→19:59)
[2024-07-30 16:00] VITALS: BP 112/48; PULSE 74; RESP 18; TEMP 36.3; O2SAT 99
--- NOTE | 2024-07-30 16:52 | PCM.DC.SUM ---
Providers Date of Admission: 07/10/24 Primary Care Physician: Dr. Juju Lopez, DO Consultations 07/12/24 13:50 Consult: Gastroenterology Routine Consulting Provider: [facility] Reason for Consult: occult stool + EMERGENT Consult: No MD Notified: Yes Date Notified: 07/12/24 Time Notified: 13:50 Method of Notification: Text Reason For Visit: SYNCOPE Diagnosis Discharge Diagnosis (1) Debility: Status: Acute Code(s): R53.81 - Other malaise (2) Fall: Status: Acute Code(s): W19.XXXA - Unspecified fall, initial encounter (3) Syncope: Status: Acute Code(s): R55 - Syncope and collapse (4) Atrial fibrillation with rapid ventricular response: Status: Acute Code(s): I48.91 - Unspecified atrial fibrillation (5) Urinary tract infection: Status: Acute Code(s): N39.0 - Urinary tract infection, site not specified (6) Seizure disorder: Status: Acute Code(s): G40.909 - Epilepsy, unspecified, not intractable, without status epilepticus (7) Hyperlipidemia: Status: Acute Code(s): E78.5 - Hyperlipidemia, unspecified (8) Depression: Status: Acute Code(s): F32.A - Depression, unspecified (9) Osteoporosis: Status: Acute Code(s): M81.0 - Age-related osteoporosis without current pathological fracture (10) Stroke: Status: Acute Code(s): I63.9 - Cerebral infarction, unspecified (11) Left hemiparesis: Status: Chronic Code(s): G81.94 - Hemiplegia, unspecified affecting left nondominant side Plan 84 year old female with below past medical history hospitalized for syncope 2/2 atrial fibrillation with RVR, complicated by E. Coli urinary tract infection, pneumonia ruled out, admitted to TCU with debility, here for rehabilitation, strengthening, prior to discharge home with family. Debility - PT/OT. Dysphagia - ST. Pain - Tylenol 1000mg q6 prn pain (1-10). Bowel - senna/colace 1 tablet bid, Magnesium citrate 300ml daily prn. Adult immunization - Administer pneumonia vaccine, covid vaccine, flu vaccine as appropriate. DVT prophylaxis - on Eliquis. Atrial Fibrillation - Metoprolol succinate 12.5mg daily, Eliquis 5mg bid. Calcium deficiency - Calcium D 1 tablet daily. E. Coli urinary tract infection - Keflex 500mg po tid thru 07/15/2024. Vitamin D deficiency - D3 25mcg daily. Depression - Duloxetine 30mg bid, stable chronic superintendent container terminal use, GDR not recommended. Nutrition - Ensure Plus 120ml po tidcm. Seizure disorder - Keppra 250mg po qam, 500mg qhs. Macular degeneration - Healthy Eye 1 cap po bid. Hyperlipidemia - Pravastatin 10mg q48. Medications at Discharge Home Medications vit C 250 mg-vit E 90 mg-zinc 40 mg-copper 1 fo-[id number]-ibkwkd capsule 1 ea PO BID eye vitamin 05/07/18 levetiracetam 500 mg tablet 500 mg PO QHS Seizures 10/20/18 Elburn Q Plus 2 tab PO DAILY Heart 07/13/19 apixaban 5 mg tablet 5 mg PO BID blood thinner #180 tabs 12/04/19 pravastatin 10 mg tablet 10 mg PO QODAY CHOLESTEROL 01/12/21 calcium carb 133 mg-vitD3 133 unit-mag amino acid chelate 67mg capsule (Coral Calcium) 1 cap PO DAILY Supplement 02/08/22 cholecalciferol (vitamin D3) 25 mcg (1,000 unit) chewable tablet 25 mcg PO DAILY Supplement 02/08/22 duloxetine 30 mg capsule,delayed release (Cymbalta) 30 mg PO BID Depression 02/08/22 denosumab 60 mg/mL subcutaneous syringe (Prolia) 60 mg subcut [id number] Osteoporosis 05/02/23 metoprolol succinate 25 mg tablet,extended release 24 hr 12.5 mg (1/2 x 25 mg) PO DAILY blood pressure #45 tabs 01/16/24 pegcetacoplan (PF) 15 mg/0.1 mL intravitreal solution (Syfovre (PF)) 15 mg intravitreal .[id number] Eyes 07/05/24 levetiracetam 250 mg tablet 250 mg PO DAILY Seizures 07/10/24 acetaminophen 500 mg tablet 1,000 mg (2 x 500 mg) PO Q6H PRN PRN Pain Score 1-10 #0 tabs 07/30/24 Hospital Course Operations None Procedures Colonoscopy Summary of Care Provided Minutes Spent on Discharge: 35 Hospital Course: 84 year old female with below past medical history hospitalized for syncope 2/2 atrial fibrillation with RVR, complicated by E. Coli urinary tract infection, pneumonia ruled out, admitted to TCU with debility, here for rehabilitation, strengthening, prior to discharge home with family. 07/15/2024 Dr. Block colonoscopy. Impressions : - Preparation of the colon was inadequate. - Diverticulosis in the recto-sigmoid colon, in the sigmoid colon and in the descending colon. - Stool in the entire examined colon. - Segmental moderate inflammation was found in the sigmoid colon secondary to left-sided colitis and secondary to ischemic colitis. Biopsied. - Two 1 to 2 mm polyps in the sigmoid colon, removed with a hot snare. Resected and retrieved. Recommendations : - Repeat colonoscopy in 6 months for surveillance. - Continue present medications. Discharge home with family 08/02/2024, [facility] PT/OT. Physical Exam Const alert General Appearance: cooperative HEENT normocephalic Eyes PERRL and EOMs intact bilaterally Neck supple, no JVD and no carotid bruits Resp normal respiratory effort, normal air movement and clear to auscultation bilaterally Cardio regular rate and regular rhythm GI normal to inspection, nondistended, normoactive bowel sounds, non-tender and non-distended Extremity normal capillary refill General Extremity: Negative for edema Skin no rashes or lesions noted General Skin Exam: no breakdown Psych affect normal Appearance: appropriate Weight / BMI Weight Weight: 79.288 kg Body Mass Index (BMI) 30.9 ABG / Lab / Microbiology Data 07/24/24 07:52 07/24/24 07:52 Microbiology: Microbiology 07/11/24 19:26 Stool Stool Occult Blood (BENEDICT) - Final Occult Blood Positive D/C Instructions Discharge Diet: No restrictions Discharge Activity: Return to Normal Activity, May Shower and Use Walker Weight Bearing Status: Weight bearing as tolerated Call your doctor if you observe: Fever of 101 or Higher, Inability to urinate, Inability to have a bowel movement, Shortness of breath, Dizziness, Fainting spells, Swelling in the ankles, Chest pain and Uncontrolled pain Additional Instructions: Discharge home with family 08/02/2024, [facility] PT/OT. Meaningful Use Info Meaningful Use Meaningful Use Diagnoses (Choose all that apply): None applicable Ischemic Stroke Statin Dosing Therapy Reference: STATIN DOSE THERAPY REFERENCE: * Patients > 75 years receive moderate or high dose statin therapy. * Patients 75 years or YOUNGER should receive HIGH intensity statin dose unless contraindicated. You will be required to document reason for non-treatment if statin daily dose does not meet guidelines. HIGH DOSE STATIN THERAPY DAILY Atorvastatin > than or = to 40 mg Rosuvastatin > than or = to 20 mg Amlodipine + Atorvastatin > than or = to 2.5/40 mg Ezetimibe + Simvastatin 10/80 mg Simvastatin 80mg Discharge Plan Admission Admit Date/Time: 07/10/24 16:35 Primary Reason for Your Visit: Debility. Attending Provider: Manjinder Hernandez Chi Primary Care Provider: Juju Lopez Instructions Additional Instructions / Restrictions: Discharge home with family 08/02/2024, [facility] PT/OT. Discharge Orders/Prescriptions Prescriptions: New acetaminophen 500 mg Tablet 1,000 mg PO Q6H PRN PRN (Reason: Pain Score 1-10) Qty: 0 0RF Continued levetiracetam 500 mg tablet 500 mg PO QHS duloxetine [Cymbalta] 30 mg capsule,delayed release(DR/EC) 30 mg PO BID apixaban 5 mg tablet 5 mg PO BID Qty: 180 3RF pravastatin 10 mg tablet 10 mg PO QODAY Patient Comments: had day before cholecalciferol (vitamin D3) 25 mcg (1,000 unit) tablet,chewable 25 mcg PO DAILY Coral Calcium 133 mg calcium -133 unit-67 mg capsule 1 cap PO DAILY Prolia 60 mg/mL syringe 60 mg subcut [id number] metoprolol succinate 25 mg tablet extended release 24 hr 12.5 mg PO DAILY Qty: 45 3RF Elburn Q Plus 2 tab PO DAILY vit C,A-Ht-dezik-lutein-zeaxan 1 EACH capsule 1 ea PO BID Syfovre (PF) 15 mg /0.1 mL solution 15 mg intravitreal .[id number] Patient Comments: gets shot once every 8weeks in each eye levetiracetam 250 mg tablet 250 mg PO DAILY Discontinued acetaminophen 325 mg tablet 325 mg PO Q6H PRN PRN (Reason: Mild Pain (0-3/10)/Headache) sennosides-docusate sodium [Stimulant Laxative Plus] 8.6-50 mg Tablet 2 tab PO BID PRN PRN (Reason: Constipation) Qty: 0 0RF cephalexin 500 mg capsule 500 mg PO TID Qty: 15 0RF Referrals / Follow Up: Juju Lopez DO [Primary Care Provider] - Disposition Disposition (needs filled in before D/C Order can be placed): Home Health Service
[2024-07-30] MEDS: levETIRAcetam 500 MG Tablet PO (19:58)
[2024-07-30] MEDS: Pravastatin 20 MG Tablet 10 MG PO (19:59)
[2024-07-30] MEDS: MELATONIN 3 MG TABLET PO (19:59)
[2024-07-30 20:14] VITALS: RESP 16
[2024-07-31 06:03] LABS: Absolute Lymphocyte Count 2.24 X10^3/uL (0.83-4.51); Absolute Neutrophil Count 4.2 X10^3/uL (2.0-7.7); Basophil# 0.03 X10^3/uL; Basophil% 0.4 % (0-1); Eosinophil# 0.41 X10^3/uL; Eosinophils% 5.3 % (0-5); Hematocrit 38.2 % (37-47); Hemoglobin 12.1 g/dL (12.0-15.0); Lymphocyte # 2.24 X10^3/ul (0.83-4.51); Lymphocyte % 28.9 % (19-41); Mean Corp Hgb Conc 31.7 g/dL (32-36); Mean Corpuscular Hgb 31.8 pg (27.0-32.0); Mean Corpuscular Volume 100.5 fL (81-99); Mean Platelet Vol. 11.1 fl (6.2-12.0); Monocyte# 0.78 X10^3/uL; Monocyte% 10.1 % (0-10); NRBC Flagged by Analyzer 0 % (0-5); Neutrophil # 4.24 X10^3/uL (2.7-7.7); Neutrophil % 54.8 % (47-70); Platelet Count 305 K/mm3 (150-450); RBC Distribution Width CV 12.3 % (11.6-14.6); White Blood Count 7.7 K/mm3 (4.4-11.0)
[2024-07-31 06:28] LABS: Anion Gap 4 (5-15); BUN 22 mg/dL (7-18); Calcium,Total 9.1 mg/dL (8.5-10.1); Chloride 107 mmol/L (98-107); Creatinine, Serum 0.73 mg/dL (0.55-1.02); EST Glomerular Filtration Rate 80 mL/min (>60); Est Glom Filt Rate - Afr Amer 97 mL/min (>60); Estimated Creatinine Clearance 51.05 ml/min; Glucose 88 mg/dL (74-106); Sodium Level 140 mmol/L (136-145)
[2024-07-31] MEDS: Nystatin Powder 15gm Bottle 1 APPLIC TOPICAL ×2 (08:23→21:02)
[2024-07-31] MEDS: APIXABAN 5 MG TABLET PO ×2 (08:25→20:57)
[2024-07-31] MEDS: Calcium Carb/Vitamin D 1 TABLET Tablet PO (08:25)
[2024-07-31] MEDS: DULoxetine Hcl 30 MG Capsule PO ×2 (08:25→21:03)
[2024-07-31 08:26] VITALS: PULSE 76
[2024-07-31] MEDS: Multivitamin (Healthy Eyes) Capsule 1 CAP PO ×2 (08:26→20:57)
[2024-07-31] MEDS: Senna/Docusate Sodium 1 Tablet PO ×2 (08:26→21:02)
[2024-07-31] MEDS: levETIRAcetam 250 MG Tablet PO (08:26)
[2024-07-31] MEDS: Metoprolol(XL)Succ 25 MG Tablet 12.5 MG PO (08:26)
[2024-07-31] MEDS: Cholecalciferol (VIT D3) 25 MCG TABLET (1,000 UNITS) PO (08:27)
[2024-07-31] MEDS: Acetaminophen 500 MG Tablet 1000 MG PO (08:27)
[2024-07-31 10:00] VITALS: PULSE 74; RESP 16
--- NOTE | 2024-07-31 13:58 | CASEMGMT ---
Social Work After this worker assisted pt with her hearing aides, completed BIMS (08/18) and PHQ-2 () for MDS assessment. Chelsea Tan, COMPUTERIZED MACHINE FABRIC CUTTER YARN HANDLER
[2024-07-31 16:00] VITALS: BP 108/47; PULSE 72; RESP 18; TEMP 36; O2SAT 99
[2024-07-31] MEDS: levETIRAcetam 500 MG Tablet PO (20:57)
[2024-07-31] MEDS: MELATONIN 3 MG TABLET PO (20:57)
[2024-08-01] MEDS: Calcium Carb/Vitamin D 1 TABLET Tablet PO (08:47)
[2024-08-01] MEDS: DULoxetine Hcl 30 MG Capsule PO ×2 (08:47→22:19)
[2024-08-01] MEDS: APIXABAN 5 MG TABLET PO ×2 (08:48→22:19)
[2024-08-01] MEDS: Multivitamin (Healthy Eyes) Capsule 1 CAP PO ×2 (08:49→22:20)
[2024-08-01] MEDS: levETIRAcetam 250 MG Tablet PO (08:49)
[2024-08-01] MEDS: Nystatin Powder 15gm Bottle 1 APPLIC TOPICAL ×2 (08:49→22:24)
[2024-08-01 08:51] VITALS: BP 111/47; PULSE 87
[2024-08-01] MEDS: Metoprolol(XL)Succ 25 MG Tablet 12.5 MG PO (08:51)
[2024-08-01] MEDS: Cholecalciferol (VIT D3) 25 MCG TABLET (1,000 UNITS) PO (08:51)
[2024-08-01] MEDS: Senna/Docusate Sodium 1 Tablet PO ×2 (08:55→22:23)
[2024-08-01 08:59] VITALS: BP 111/47; PULSE 87; O2SAT 99
[2024-08-01 15:07] VITALS: BP 119/51; PULSE 71; RESP 18; TEMP 35.8; O2SAT 97
[2024-08-01] MEDS: levETIRAcetam 500 MG Tablet PO (22:20)
[2024-08-01] MEDS: MELATONIN 3 MG TABLET PO (22:20)
[2024-08-01] MEDS: Pravastatin 20 MG Tablet 10 MG PO (22:21)
[2024-08-01] MEDS: Acetaminophen 500 MG Tablet 1000 MG PO (22:23)
[2024-08-01 23:07] VITALS: RESP 15
[2024-08-02 06:58] VITALS: PULSE 78; RESP 15
[2024-08-02] MEDS: Nystatin Powder 15gm Bottle 1 APPLIC TOPICAL (07:48)
[2024-08-02] MEDS: Calcium Carb/Vitamin D 1 TABLET Tablet PO (07:49)
[2024-08-02] MEDS: DULoxetine Hcl 30 MG Capsule PO (07:49)
[2024-08-02 07:50] VITALS: BP 107/49; PULSE 91
[2024-08-02] MEDS: Cholecalciferol (VIT D3) 25 MCG TABLET (1,000 UNITS) PO (07:50)
[2024-08-02] MEDS: Metoprolol(XL)Succ 25 MG Tablet 12.5 MG PO (07:50)
[2024-08-02] MEDS: APIXABAN 5 MG TABLET PO (07:50)
[2024-08-02] MEDS: Multivitamin (Healthy Eyes) Capsule 1 CAP PO (07:50)
[2024-08-02] MEDS: levETIRAcetam 250 MG Tablet PO (07:52)
[2024-08-02] MEDS: Senna/Docusate Sodium 1 Tablet PO (07:54)
[2024-08-02 07:58] VITALS: BP 107/49; PULSE 91; RESP 18; TEMP 36.1; O2SAT 97
== END 2024-08-02 13:00 | disposition home health service (06) | DRG 309 ==
PROVIDERS: Admitting Provider Family Medicine Geriatric Medicine; PCP Family Medicine; Referring Provider Family Medicine Geriatric Medicine; Visit Provider Family Medicine Geriatric Medicine
DX: I48.0 Paroxysmal atrial fibrillation (principal); G81.94 Hemiplegia, unspecified affecting left nondominant side; K55.9 Vascular disorder of intestine, unspecified; N39.0 Urinary tract infection, site not specified; G40.909 Epilepsy, unspecified, not intractable, without status epilepticus; F32.A Depression, unspecified; E55.9 Vitamin D deficiency, unspecified; E78.5 Hyperlipidemia, unspecified; H35.30 Unspecified macular degeneration; K63.5 Polyp of colon; K57.30 Diverticulosis of large intestine without perforation or abscess without bleeding; B96.20 Unspecified Escherichia coli [E. coli] as the cause of diseases classified elsewhere; Z79.899 Other long term (current) drug therapy; Z79.01 Long term (current) use of anticoagulants; G47.00 Insomnia, unspecified; M81.0 Age-related osteoporosis without current pathological fracture; Z23 Encounter for immunization
CPT/HCPCS: 36415; 80048; 80061; 82274; 82306; 85014; 85018; 85025; 90480; 91322; 92507; 92523; 92526; 92610; 97110; 97116; 97129; 97130; 97162; 97166; 97530; 97535; 97802; A4216

== ENCOUNTER 2024-07-15 10:26 | Day surgery (SDC) | payer MEDICARE, SELFPAY ==
[2024-07-15 10:30] VITALS: BP 110/60; PULSE 75; RESP 16; TEMP 36.4; O2SAT 100; BMI 30.4
[2024-07-15] MEDS: Lactated Ringers 1,000 ML 15 ML IV (10:58)
--- NOTE | 2024-07-15 11:11 | PRE.ANES_ITS ---
ASA Classification* ASA Classification ASA Classification: 3 Assessment & Plan Anesthesia* Anesthesia Assessment Anesthesia Assessment: Discussed sedation and/or anesthesia options, risks, benefits, and alternatives with patient/parents/legal guardian/POA. Questions invited. The patient/parents/legal guardian/POA seems to understand and agrees to proceed with anesthesia plan. Reviewed the physical assessment, medical history, allergy history and patient home medications list prior to surgery/procedure/anesthetic and documented any changes. Performed airway and anesthesia risk assessments. Anesthesia Type Anesthesia Type: MAC Anesthesia Focused Assessment* Temperature: 97.5 F Pulse Rate: 75 Blood Pressure: 110/60 Respiratory Rate: 16 Pulse Ox: 100 Airway Assessment Mouth opens: >3 cm Mallampati Score: II Focused Labs Anesthesia Preop lab: CBC WBC 10.3 K/mm3 (4.4-11.0) 07/11/24 06:15 RBC 3.42 M/mm3 (4.2-5.4) L 07/11/24 06:15 Hgb 11.2 g/dL (12.0-15.0) L 07/13/24 05:05 Hct 35.0 % (37-47) L 07/13/24 05:05 Plt Count 256 K/mm3 (150-450) 07/11/24 06:15 CHEMISTRY Potassium 3.9 mmol/L (3.5-5.1) 07/11/24 06:15 Sodium 138 mmol/L (136-145) 07/11/24 06:15 Magnesium 2.6 mg/dL (1.6-2.6) 07/09/24 08:49 Phosphorus 2.9 mg/dL (2.5-4.9) 07/09/24 08:49 BUN 14 mg/dL (7-18) 07/11/24 06:15 Creatinine 0.60 mg/dL (0.55-1.02) 07/11/24 06:15 Glucose 120 mg/dL (74-106) H 07/11/24 06:15 POC Glucose 122 mg/dL (70-110) H 05/07/18 22:23 TSH 0.97 uIU/mL (0.358-3.74) 10/22/16 12:00 COAG PT 15.2 SECONDS (11.7-14.9) H 07/05/24 10:01 Pre-Assessment Diagnosis/Proposed Procedure Planned Operative Procedure(s): CSCOPE Anesthesia History Anesthesia History - client relations associate: Anesthesia History - client relations associate Hx Hospitalization Yes: 07/05/2024 HAD FALL AT 07/14/24 15:20 HOME/SYNCOPE DUE TO A FIB Any Problems With Anesthesia No 07/14/24 15:20 Cholinesterase deficiency No 07/14/24 15:20 You/Your Family Experience No 07/14/24 15:20 fever (hyperthermia) with Relationship Recent Exposure to Contagious Disease Does patient have nerve No 07/14/24 15:20 stimulator Patient instructed to have device shut off --Does patient have Pacemaker No 07/15/24 10:30 or ICD? When Was Last Pacemaker Check QUESTION #4 FULL TEXT: You/Your Family Experience fever (hyperthermia) with Anesthesia Last Oral Intake Last Oral intake: Last Oral Intake NPO since Meds taken in AM with sips of Yes 07/15/24 10:30 water? Meds patient instructed to keppra 07/15/24 10:30 take am of surgery metoprolol PONV PONV - client relations associate: PONV - client relations associate Female Yes 07/14/24 15:20 HX of Motion Sickness No 07/14/24 15:20 HX of N/V After Surgery No 07/14/24 15:20 Non-Smoker Yes 07/14/24 15:20 Duration of Surgery greater No 07/14/24 15:20 than 60 minutes Number of Risk Factors 2 07/14/24 15:20 PONV Score Moderate Risk 07/14/24 15:20 Height & Weight Height & Weight: Anesthesia: Height & Weight Height 5 ft 2.99 in 07/15/24 10:30 Weight: 78.018 kg 07/15/24 10:30 Body Mass Index (BMI) 30.4 07/15/24 10:30 Respiratory Assessment Respiratory Assessment - client relations associate: Respiratory Tract Infection Hx - client relations associate Hx Respiratory Tract Infection No 07/14/24 15:20 STOP Sleep Apnea STOP Sleep Apnea - client relations associate: STOP Sleep Apnea - client relations associate Hx Hypertension Yes: CONTROLLED WITH MED 07/14/24 15:20 Hx Sleep Apnea Yes 07/14/24 15:20 CPAP Yes: HAS NOT USED SINCE 201707/14/24 15:20 BIPAP No 07/14/24 15:20 Do you snore loudly (louder than talking or can be heard Do you often feel tired/ fatigued/ sleepy during daytime? Has anyone observed you stop breathing during sleep? STOP Results Positive 07/14/24 15:20 QUESTION #5 FULL TEXT : Do you snore loudly (louder than talking or can be heard through closed doors)? 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 Specify any problems Hx of Preganancy in last 3 No 07/14/24 15:20 Months Nurse Filling Out Transfusion DSCHRIBER 07/14/24 15:20 & Questions: Date: 07/14/24 07/14/24 15:20 Time: 15:22 07/14/24 15:20 Patient unable to answer at this time (ie. confused, unrespo /Reproduction History /Reproductive History - client relations associate: /Reproductive Hx- client relations associate Hx Now No 07/14/24 15:20 Gestational Age (in weeks): EDC: Hx Hx Para Hx Section SAB No 07/14/24 15:20 Active Medications Active Medications: Current Medications Generic Name Dose Route Start Last Admin Trade Name Freq PRN Reason Stop Dose Admin Lactated Ringer's 1,000 mls @ 15 mls/hr 07/15/24 11:00 07/15/24 10:58 IV 15 mls/hr .Q48H DEJON Administration PFSH Medical History Wears hearing aid Wears glasses Cancer Depression Walker as ambulation aid Arthritis UTI (urinary tract infection) Loss of consciousness Difficulty swallowing Blood in stool History of diverticulitis Non-smoker CPAP (continuous positive airway pressure) dependence Leg cramps History of pain when walking History of edema Hypertension History of echocardiogram Cardiology follow-up encounter Seizure Paroxysmal atrial fibrillation Macular degeneration Left hemiparesis Cerebrovascular disease Gammopathy 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 Snoring Acute right MCA stroke (02/08/16) Obesity (BMI 30.0-34.9) Home Medications ?Medication ?Instructions ?Recorded ?Last Taken ?Type vit C 250 mg-vit E 90 mg-zinc 40 1 ea PO BID eye vitamin 05/07/18 Unknown History mg-copper 1 [id number] capsule levetiracetam 500 mg tablet 500 mg PO QHS Seizures 10/20/18 Unknown History [place] Q Plus 2 tab PO DAILY Heart 07/13/19 Unknown History apixaban 5 mg tablet 5 mg PO BID blood thinner #180 tabs 12/04/19 07/10/24 09:05 Rx acetaminophen 325 mg tablet 325 mg PO Q6H PRN PRN Mild Pain 01/12/21 Unknown History (0-01/11)/Headache pravastatin 10 mg tablet 10 mg PO QODAY CHOLESTEROL 01/12/21 07/08/24 22:55 History calcium carb 133 mg-vitD3 133 1 cap PO DAILY Supplement 02/08/22 Unknown History unit-mag amino acid chelate 67mg capsule (Coral Calcium) cholecalciferol (vitamin D3) 25 25 mcg PO DAILY Supplement 02/08/22 07/10/24 09:05 History mcg (1,000 unit) chewable tablet duloxetine 30 mg capsule,delayed 30 mg PO BID Depression 02/08/22 07/10/24 09:00 History release (Cymbalta) denosumab 60 mg/mL subcutaneous 60 mg subcut [id number] Osteoporosis 05/02/23 Unknown History syringe (Prolia) metoprolol succinate 25 mg 12.5 mg (1/2 x 25 mg) PO DAILY 01/16/24 07/06/24 Rx tablet,extended release 24 hr blood pressure #45 tabs pegcetacoplan (PF) 15 mg/0.1 mL 15 mg intravitreal .[id number] Eyes 07/05/24 Unknown History intravitreal solution (Syfovre (PF)) cephalexin 500 mg capsule 500 mg PO TID UTI #15 caps 07/10/24 Unknown Rx levetiracetam 250 mg tablet 250 mg PO DAILY Seizures 07/10/24 Unknown History sennosides 8.6 mg-docusate sodium 2 tab PO BID PRN PRN Constipation 07/10/24 07/09/24 10:30 Rx 50 mg tablet (Stimulant Laxative #0 tabs Plus) Allergy/AdvReac Type Severity Reaction Status Date / Time No Known Allergies Allergy Verified 07/14/24 15:16 Family History Father CAD (coronary artery disease) Aunt Breast cancer Sister Uterine cancer Surgical History History of laser refractive surgery S/P laser cataract surgery History of bilateral cataract extraction History of colonoscopy History of total mastectomy of right breast Social History household members: family Smoking Status: Never smoker alcohol intake: never substance use type: does not use Review of Systems (Anesthesia) ROS Narrative System reviewed and no additional complaints, except as documented.
[2024-07-15 11:12] VITALS: BP 110/60; PULSE 75; RESP 16; TEMP 36.4; O2SAT 100
--- NOTE | 2024-07-15 11:30 | COLBX_PTH ---
PATIENT: HENRY DEGROOT LOC: EN U#:[id number] AGE/SX: 84/F ROOM: RE07/15/[address]: Dr. Bakari Block DO : 1940 BED: DIS: 07/15/2024 SPEC #: [id number] RECD: 07/16/24 08:48 STATUS: BLAKE JILL #: [id number] SATISH: 07/15/24 11:[address]: Bakari Block DEPT: SURGICAL PATHOLOGY RECD BY: Rahat Moreno ENTERED: 07/16/24 10:14 SP TYPE: COLON BX OZZY DR: Dr. Juju Lopez DO Tissues: A - Sigmoid colon biopsy B - Sigmoid colon biopsy Procedures: Surgery Specimen Level IV HEADER OPERATION: Colonoscopy, polypectomy, biopsy PRE-OP DIAGNOSIS: GI bleed TISSUE SUBMITTED: A- Sigmoid polyp, B- Sigmoid colon biopsy MICROSCOPIC DIAGNOSIS A. Sigmoid colon polyp, biopsy: Suggestive of fragments of inflammatory polyp. B. Sigmoid colon, biopsy: Fragments of tubular adenoma. AM. 07/17/2024 MICROSCOPIC DESCRIPTION Slides are reviewed. GROSS DESCRIPTION A. Received in fixative is one container labeled with the patient's name and designated Sigmoid polyp. The specimen consists of multiple irregular fragments of light irizarry soft tissue that in aggregate measure 1.5 x 1.0 x 0.1 cm. The specimen is totally submitted in one cassette. B. Received in fixative is one container labeled with the patient's name and designated Sigmoid colon biopsy. The specimen consists of two irregular fragments of light irizarry soft tissue that in aggregate measure 0.6 x 0.5 x 0.1 cm. The specimen is totally submitted in one cassette. 07/16/2024 TC:5 [facility]:[id number]
--- NOTE | 2024-07-15 11:56 | HP.PCM_ITS ---
History and Physical Date of Admission: 07/15/24 Reason for Consultation: GI bleed HPI Narrative: HENRY DEGROOT, is a 84 F with a significant history of hypertension, paroxysmal A- fib CVA, and seizure disorder who presents with syncope. Before the syncope she had lightheadedness and presyncope. She has a history of paroxysmal atrial fibr illation and previous CVA. She has been on Eliquis therapy for her history of CVA associated with atrial fibrillation. I was asked to see her due to worsening lower GI bleeding. Her Eliquis was stopped. She said she had a colonoscopy several years ago but cannot recall if she had any diverticular disease. [facility] Medical History (Updated 07/10/24 @ 18:[address] Manjinder Hernandez MD) Seizure Paroxysmal atrial fibrillation Macular degeneration Left hemiparesis Cerebrovascular disease Gammopathy 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 Snoring Acute right MCA stroke (02/08/16) Obesity (BMI 30.0-34.9) Home Medications ?Medication ?Instructions ?Recorded ?Last Taken ?Type vit C 250 mg-vit E 90 mg-zinc 40 1 ea PO BID eye vitamin 05/07/18 Unknown History mg-copper 1 vj-[id number]-eajpaj capsule levetiracetam 500 mg tablet 500 mg PO QHS Seizures 10/20/18 Unknown History [place] Q Plus 2 tab PO DAILY Heart 07/13/19 Unknown History apixaban 5 mg tablet 5 mg PO BID blood thinner #180 tabs 12/04/19 07/10/24 09:05 Rx acetaminophen 325 mg tablet 325 mg PO Q6H PRN PRN Mild Pain 01/12/21 Unknown History (0-3)/Headache pravastatin 10 mg tablet 10 mg PO QODAY CHOLESTEROL 01/12/21 07/08/24 22:55 History calcium carb 133 mg-vitD3 133 1 cap PO DAILY Supplement 02/08/22 Unknown History unit-mag amino acid chelate 67mg capsule (Coral Calcium) cholecalciferol (vitamin D3) 25 25 mcg PO DAILY Supplement 02/08/22 07/10/24 09:05 History mcg (1,000 unit) chewable tablet duloxetine 30 mg capsule,delayed 30 mg PO BID Depression 02/08/22 07/10/24 09:00 History release (Cymbalta) denosumab 60 mg/mL subcutaneous 60 mg subcut [id number] Osteoporosis 05/02/23 Unknown History syringe (Prolia) metoprolol succinate 25 mg 12.5 mg (1/2 x 25 mg) PO DAILY 01/16/24 07/06/24 Rx tablet,extended release 24 hr blood pressure #45 tabs pegcetacoplan (PF) 15 mg/0.1 mL 15 mg intravitreal .[id number] Eyes 07/05/24 Unknown History intravitreal solution (Syfovre (PF)) cephalexin 500 mg capsule 500 mg PO TID UTI #15 caps 07/10/24 Unknown Rx levetiracetam 250 mg tablet 250 mg PO DAILY Seizures 07/10/24 Unknown History sennosides 8.6 mg-docusate sodium 2 tab PO BID PRN PRN Constipation 07/10/24 07/09/24 10:30 Rx 50 mg tablet (Stimulant Laxative #0 tabs Plus) Allergy/AdvReac Type Severity Reaction Status Date / Time No Known Allergies Allergy Verified 07/05/24 08:22 Family History Father CAD (coronary artery disease)Aunt Breast cancerSister Uterine cancer Surgical History S/P laser cataract surgery History of bilateral cataract extraction History of colonoscopy History of total mastectomy of right breast Social History (Updated 07/10/24 @ 18:[address] Manjinder Hernandez MD) household members: family Smoking Status: Never smoker alcohol intake: never substance use type: does not use Lab / Micro Data 07/13/24 05:05 07/11/24 06:15 Labs: Laboratory Results - last 24 hr 07/14/24 05:11: Triglycerides 52, Cholesterol 130, LDL Cholesterol 60, VLDL Cholesterol 10, HDL Cholesterol 60, Vitamin D 25-Hydroxy 57.5 Assessment & Plan Assessment/Plan (1) Debility: (2) Fall: (3) Syncope: (4) Atrial fibrillation with rapid ventricular response: (5) Urinary tract infection: (6) Seizure disorder: (7) Hyperlipidemia: (8) Depression: (9) Osteoporosis: (10) Stroke: (11) Left hemiparesis: PLAN: Plan 84 year old female with below past medical history hospitalized for syncope 2/2 atrial fibrillation with RVR, complicated by E. Coli urinary tract infection,admitted to TCU with the need to build her strength back up prior to her being discharged to home. While at TCU she was discovered to have lower GI bleeding. This prompted her Eliquis to be stopped. The differential diagnosis for lower GI bleed would be hemorrhoidal disease, diverticular disease, Meckel's diverticulum, ischemic colitis and less likely colitis colitis or microscopic colitis. Also different diagnosis is include inflammatory bowel disease. She should undergo an upper and lower endoscopy to evaluate upper lower GI tract because of her need to go on anticoagulation to prevent another stroke. She was explained alternatives, risk, benefits including not withstanding bleeding, infection, sepsis, perforation, need for emergent surgery and . She will have an ASA of 3. I have examined the patient and the H&P has been reviewed. There are no clinical changes since date of exam.
--- NOTE | 2024-07-15 12:31 | PCM.POST.ANE ---
Anesthesia: Postop Eval I Current Vital Signs Temperature: 96.9 F Pulse Rate: 84 Blood Pressure: 112/56 Respiratory Rate: 16 Pulse Ox: 99 Oxygen Delivery Method: Room Air Assessment Airway patent: Yes Spontaneous unlabored respirations: Yes Mental status: Awake and Calm nausea: No Vomiting: No Anesthesia Complication: No Fluid Hydration Crystalloid volume administer (ml): 900 Total IV fluid infused: 900 Progress Note Anesthesia document: Postop Eval 1 completed: Yes
[2024-07-15 12:33] VITALS: BP 110/60; BP 112/56; PULSE 83; PULSE 84; RESP 16; TEMP 36.1; O2SAT 99
[2024-07-15 12:35] VITALS: BP 110/60; BP 116/58; PULSE 84; RESP 16; O2SAT 99
--- NOTE | 2024-07-15 12:35 | PCM.POSTANE2 ---
Anesthesia Postop Eval I Sum Postop Eval Completion status Anesthesia document: Postop Eval 1 completed: Yes Anesthesia Postop Eval I Summary Anesthesia Postop Eval I Summary: Anesthesia Postop Eval I: Assessment Summary Airway patent Yes 07/15/24 12:33 Spontaneous unlabored Yes 07/15/24 12:33 respirations Mental status Awake,Calm 07/15/24 12:33 nausea No 07/15/24 12:33 Vomiting No 07/15/24 12:33 Anesthesia Postop Eval I: Fluid Summary Crystalloid volume administer 900 07/15/24 12:33 (ml) Colloids volume administered ( ml) Blood Product volume administered (ml) Total IV fluid infused 900 07/15/24 12:33 Anesthesia Postop Eval I: Summary Notes Anesthesia Complication No 07/15/24 12:33 Anesthesia Complication Comment: Post-operative progress note Anesthesia: Postop Eval II Evaluation Mental status: Awake Pain Level: 0 nausea: No Vomiting: No
--- NOTE | 2024-07-15 12:36 | OP.COLON_ITS ---
Patient Name: Monica Esteban Procedure Date: 07/15/2024 11:48 AM Date of : 1940 Age: 84 Procedure: Colonoscopy Indications: Hematochezia Providers: Bakari Block DO Medicines: Monitored Anesthesia Care Patient Profile: This is an 84 year old female. Refer to note in patient chart for documentation of history and physical. Last Colonoscopy: date unknown. Unable to locate last colonoscopy report. Complications: No immediate complications. Procedure: Pre-Anesthesia Assessment: - Prior to the procedure, a History and Physical was performed, and patient medications and allergies were reviewed. The patient is competent. The risks and benefits of the procedure and the sedation options and risks were discussed with the patient. All questions were answered and informed consent was obtained. Patient identification and proposed procedure were verified by the physician in the pre-procedure area. Mental Status Examination: alert and oriented. Airway Examination: normal oropharyngeal airway and neck mobility. Respiratory Examination: clear to auscultation. CV Examination: normal. Prophylactic Antibiotics: The patient does not require prophylactic antibiotics. Prior Anticoagulants: The patient has taken no anticoagulant or antiplatelet agents. ASA Grade Assessment: II - A patient with mild systemic disease. After reviewing the risks and benefits, the patient was deemed in satisfactory condition to undergo the procedure. The anesthesia plan was to use monitored anesthesia care (MAC). Immediately prior to administration of medications, the patient was re-assessed for adequacy to receive sedatives. The heart rate, respiratory rate, oxygen saturations, blood pressure, adequacy of pulmonary ventilation, and response to care were monitored throughout the procedure. The physical status of the patient was re-assessed after the procedure. After I obtained informed consent, the scope was passed under direct vision. Throughout the procedure, the patient's blood pressure, pulse, and oxygen saturations were monitored continuously. The Colonoscope was introduced through the anus and advanced to the cecum, identified by appendiceal orifice and ileocecal valve. The colonoscopy was performed without difficulty. The patient tolerated the procedure well. The quality of the bowel preparation was inadequate. Scope In: 12:07:18 PM Scope Out: 12:24:26 PM Total Procedure Duration Time 0 hours 17 minutes 8 seconds Findings: The perianal and digital rectal examinations were normal. Multiple small and large-mouthed diverticula were found in the recto-sigmoid colon, sigmoid colon and descending colon. A large amount of stool was found in the entire colon. Segmental moderate inflammation characterized by congestion (edema), erosions, erythema, friability and granularity was found in the sigmoid colon. Biopsies were taken with a cold forceps for histology. Verification of patient identification for the specimen was done. Estimated blood loss was minimal. Two sessile polyps were found in the sigmoid colon. The polyps were 1 to 2 mm in size. These polyps were removed with a hot snare. Resection and retrieval were complete. Verification of patient identification for the specimen was done. Estimated blood loss was minimal. Impression: - Preparation of the colon was inadequate. - Diverticulosis in the recto-sigmoid colon, in the sigmoid colon and in the descending colon. - Stool in the entire examined colon. - Segmental moderate inflammation was found in the sigmoid colon secondary to left-sided colitis and secondary to ischemic colitis. Biopsied. - Two 1 to 2 mm polyps in the sigmoid colon, removed with a hot snare. Resected and retrieved. Recommendation: - Repeat colonoscopy in 6 months for surveillance. - Continue present medications. Procedure Code(s): --- Professional --- 32937, Colonoscopy, flexible; with removal of tumor(s), polyp(s), or other lesion(s) by snare technique 53945, 59, Colonoscopy, flexible; with biopsy, single or multiple CPT copyright 2021 [employer]. All rights reserved. The codes documented in this report are preliminary and upon insurance sales associate review may be revised to meet current compliance requirements. Bakari Block DO 07/15/2024 12:35:36 PM This report has been signed electronically. Number of Addenda: 0 Note Initiated On: 07/15/2024 11:48 AM
--- NOTE | 2024-07-15 12:36 | OP.CCLET_ITS ---
07/15/2024 Juju Morales Do Re : Colonoscopy procedure for Monica Esteban Dear Carmen This procedure was performed on Monday, July 15, 2024. My impressions and recommendations are as follows: Impressions : - Preparation of the colon was inadequate. - Diverticulosis in the recto-sigmoid colon, in the sigmoid colon and in the descending colon. - Stool in the entire examined colon. - Segmental moderate inflammation was found in the sigmoid colon secondary to left-sided colitis and secondary to ischemic colitis. Biopsied. - Two 1 to 2 mm polyps in the sigmoid colon, removed with a hot snare. Resected and retrieved. Recommendations : - Repeat colonoscopy in 6 months for surveillance. - Continue present medications. My findings are described in the full procedure note, which is enclosed. If I can be of further assistance, please feel free to contact me at . Sincerely, Bakari Block, 07/15/2024 12:35:36 PM This report has been signed electronically.
[2024-07-15 12:40] VITALS: BP 110/60; BP 119/57; PULSE 84; RESP 16; O2SAT 97
[2024-07-15 12:45] VITALS: BP 110/60; BP 111/60; PULSE 80; RESP 16; TEMP 36.6; O2SAT 99
--- NOTE | 2024-07-15 12:57 | SUR.PHASEII ---
report called to tcu rn
--- NOTE | 2024-07-16 08:41 | PCM.POSTANE2 ---
Anesthesia Postop Eval I Sum Postop Eval Completion status Anesthesia document: Postop Eval 1 completed: Yes Anesthesia Postop Eval I Summary Anesthesia Postop Eval I Summary: Anesthesia Postop Eval I: Assessment Summary Airway patent Yes 07/15/24 12:33 Spontaneous unlabored Yes 07/15/24 12:33 respirations Mental status Awake 07/15/24 12:35 nausea No 07/15/24 12:35 Vomiting No 07/15/24 12:35 Anesthesia Postop Eval I: Fluid Summary Crystalloid volume administer 900 07/15/24 12:33 (ml) Colloids volume administered ( ml) Blood Product volume administered (ml) Total IV fluid infused 900 07/15/24 12:33 Anesthesia Postop Eval I: Summary Notes Anesthesia Complication No 07/15/24 12:33 Anesthesia Complication Comment: Post-operative progress note Anesthesia: Postop Eval II Evaluation Mental status: Awake Pain Level: 0 nausea: No Vomiting: No
== END 2024-07-15 12:58 | disposition home or self-care (01) ==
LOC: EN 10:28 → AC 10:28
PROVIDERS: PCP Family Medicine; Referring Provider Family Medicine; Visit Provider Internal Medicine Gastroenterology
PROC: 0DJD8ZZ Inspection of Lower Intestinal Tract, Via Natural or Artificial Opening Endoscopic (ICD-10-PCS; CPT 45378; principal; 2024-07-15 11:25)
DX: K57.31 Diverticulosis of large intestine without perforation or abscess with bleeding (principal); I69.354 Hemiplegia and hemiparesis following cerebral infarction affecting left non-dominant side; I48.0 Paroxysmal atrial fibrillation; G40.909 Epilepsy, unspecified, not intractable, without status epilepticus; K51.50 Left sided colitis without complications; K51.40 Inflammatory polyps of colon without complications; D12.5 Benign neoplasm of sigmoid colon; K55.9 Vascular disorder of intestine, unspecified; I10 Essential (primary) hypertension; E78.5 Hyperlipidemia, unspecified; Z79.01 Long term (current) use of anticoagulants; Z79.899 Other long term (current) drug therapy
CPT/HCPCS: 45385; 45380; 88305; J7120; A4216; J2405

== ENCOUNTER → 2024-11-18 | Outpatient (CLI) | payer MEDICARE, SELFPAY ==
[2024-11-18 17:42] LABS: Glucose, Dipstick Normal (Normal); Ketone-Dipstick Negative (Negative); Leukocyte Esterase-Dipstick Negative /ul (Negative); Nitrite-Dipstick Negative (Negative); Occult Blood-Urine 10 /ul (Negative); Protein-Dipstick 30 mg/dl (Negative); Specific Gravity, Urine 1.025 (1.002-1.030); Urine Urobilinogen Normal (Normal)
[2024-11-18 17:44] LABS: Color, Urine Red (Yellow); Urine Bilirubin Dipstick 3 mg/dL (Negative)
[2024-11-18 17:45] LABS: Urine Clarity Cloudy (Clear)
== END | disposition home or self-care (01) ==
PROVIDERS: PCP Family Medicine; Referring Provider Family Medicine; Visit Provider Family Medicine
DX: R30.0 Dysuria (principal)
CPT/HCPCS: 81002; 87077; 87086; 87088; 87186

== ENCOUNTER 2025-09-05 10:34 | Emergency (ER) | payer MEDICARE, SELFPAY ==
[2025-09-05 10:35] VITALS: BP 88/48; PULSE 79; RESP 14; TEMP 36.3; O2SAT 97
--- NOTE | 2025-09-05 10:54 | EKG12_ITS ---
Test Reason : FALLS
[2025-09-05 10:55] VITALS: BMI 29.9
[2025-09-05] MEDS: 0.9% Normal Saline (1000mL) 1,000 ML 1000 ML IV ×2 (11:06→14:02)
--- NOTE | 2025-09-05 11:11 | ED.VIS.FALL ---
HPI HPI - Fall History of Present Illness Chief Complaint: Fall Narrative Narrative: Patient is a 85-year-old female presenting to the emergency department for frequent unwitnessed falls at home. Patient has fallen 3 times since Saturday. Patient is a poor historian. She has a past medical history of paroxysmal A-fib on Eliquis, seizures, debility, stroke, breast cancer with right sided mastectomy. Patient lives at home with daughter. Daughter states that she had strong smelling urine last week and actually had a urine sample done this morning. States that she also had multiple episodes of diarrhea last week. On Saturday she said that she was moving a blanket from behind her was sitting on the couch when she slipped forward causing her to fall on her buttocks. She states that another fall was when she slipped on a bath mat while grabbing a towel. She does not think she hit her head. Daughters noticed a bump on the back of her head and decided to have her evaluated in the emergency department. Patient denies any symptoms or pain at time of evaluation. Denies chest pain, shortness of breath, abdominal pain, nausea, vomiting. She denies any pain in her neck or back. Denies any headache. Denies any arm, leg or hip pain. She has been able to walk since. [facility] Medical History Atrial fibrillation Seizures History of fall Wears hearing aid Wears glasses Cancer Depression Walker as ambulation aid Arthritis UTI (urinary tract infection) Loss of consciousness Difficulty swallowing Blood in stool History of diverticulitis Non-smoker CPAP (continuous positive airway pressure) dependence Leg cramps History of pain when walking History of edema Hypertension History of echocardiogram Cardiology follow-up encounter Seizure Paroxysmal atrial fibrillation Macular degeneration Left hemiparesis Cerebrovascular disease Gammopathy 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 Snoring Acute right MCA stroke (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) Obesity (BMI 30.0-34.9) Home Medications ?Medication ?Instructions ?Recorded ?Last Taken ?Type vit C 250 mg-vit E 90 mg-zinc 40 1 ea PO BID eye vitamin 05/07/18 Unknown History mg-copper 1 [id number] capsule apixaban 5 mg tablet 5 mg PO BID blood thinner #180 tabs 12/04/19 07/10/24 09:05 Rx pravastatin 10 mg tablet 10 mg PO QODAY CHOLESTEROL 01/12/21 07/08/24 22:55 History calcium carb 133 mg-vitD3 133 1 cap PO DAILY Supplement 02/08/22 Unknown History unit-mag amino acid chelate 67mg capsule (Coral Calcium) duloxetine 30 mg capsule,delayed 30 mg PO BID Depression 02/08/22 07/10/24 09:00 History release (Cymbalta) denosumab 60 mg/mL subcutaneous 60 mg subcut [id number] Osteoporosis 05/02/23 Unknown History syringe (Prolia) levetiracetam 250 mg tablet 250 mg PO DAILY Seizures 07/10/24 Unknown History acetaminophen 500 mg tablet 1,000 mg (2 x 500 mg) PO Q6H PRN 07/30/24 Unknown Rx PRN Pain Score 1-10 #0 tabs apple cider vinegar 500 mg tablet mg PO 09/21/24 Unknown History cholecalciferol (vitamin D3) 125 125 mcg PO QDAY 09/21/24 Unknown History mcg (5,000 unit) tablet cyanocobalamin (vitamin B-12) 1,000 mcg PO QDAY 09/21/24 Unknown History 1,000 mcg tablet levetiracetam 250 mg tablet 500 mg PO QPM 09/21/24 Unknown History omega-3 fatty acids-fish oil 435 cap PO 09/21/24 Unknown History mg-880 mg capsule (Fish Oil Extra Strength) pegcetacoplan (PF) 15 mg/0.1 mL 15 mg intravitreal [id number] Eyes 09/21/24 Unknown History intravitreal solution (Syfovre (PF)) metoprolol succinate 25 mg 12.5 mg (1/2 x 25 mg) PO DAILY 04/20/25 Unknown Rx tablet,extended release 24 hr blood pressure #45 tabs amoxicillin 875 mg-potassium 1 tab PO Q12H 7 days #14 tabs 09/05/25 Unknown Rx clavulanate 125 mg tablet Allergy/AdvReac Type Severity Reaction Status Date / Time No Known Allergies Allergy Verified 09/05/25 10:35 Family History Father CAD (coronary artery disease) Aunt Breast cancer Sister Uterine cancer Surgical History History of laser refractive surgery S/P laser cataract surgery History of bilateral cataract extraction History of colonoscopy History of total mastectomy of right breast Social History household members: family Smoking Status: Never smoker alcohol intake: never substance use type: does not use ROS ROS ED ROS Narrative see HPI EXAM Physical Exam Narrative Exam Narrative: Vital signs: Reviewed General: Alert and oriented x 3. No acute distress. Chronically ill-appearing. HEENT: Head is normocephalic and atraumatic. No cephalhematoma, lacerations or abrasions to the head or face. Midface is stable and nontender to palpation. Pupils 2 mm equal round and reactive. Nares are patent. No septal hematoma. Oropharynx and throat exams normal. No oropharyngeal trauma. Neck: Supple without lymphadenopathy nontender. No midline cervical spinal tenderness to palpation. No step-offs or deformities. Cardiovascular: Regular rate and rhythm, no murmurs. No rubs or gallops. Normal S1 and S2 Respiratory: Clear to auscultation bilaterally. No wheezes, rales, rhonchi Chest: Right sided mastectomy. Chest wall is atraumatic and nontender to palpation. There is no crepitus, erythema or ecchymosis. Abdominal: Soft and nontender. Normal bowel sounds. No guarding or rebound. Nonsurgical abdomen Extremities: No midline thoracic or lumbar spinal tenderness to palpation. No step-offs or deformities. Hips are stable and nontender to palpation. There is ecchymosis to the right knee with no tenderness to palpation. There is a skin tear to the left forearm with no tenderness to palpation. Normal active range of motion of all extremities. Neurological: Cranial nerves II through XII are grossly intact. Normal strength and sensation. Normal cerebellar function The rest of the physical exam is unremarkable Const Vital Signs: 09/05/25 10:35 09/05/25 12:00 09/05/25 12:02 Temperature 97.3 F L 97.7 F L Temperature Source Temporal Oral Pulse Rate 79 77 Respiratory Rate 14 18 Respiratory Effort Normal Blood Pressure 88/48 L 95/52 L Blood Pressure Mean 61 66 Pulse Ox 97 98 Oxygen Delivery Method Room Air Room Air Room Air 09/05/25 13:00 09/05/25 14:00 09/05/25 15:00 Temperature 97.8 F Temperature Source Oral Pulse Rate 76 77 78 Respiratory Rate 20 H 17 Respiratory Effort Blood Pressure 90/46 L 99/43 L 117/54 L Blood Pressure Mean 60 60 75 Pulse Ox 96 98 Oxygen Delivery Method Room Air 09/05/25 16:11 Temperature 98.6 F Temperature Source Pulse Rate 74 Respiratory Rate 16 Respiratory Effort Blood Pressure 114/64 Blood Pressure Mean 80 Pulse Ox 100 Oxygen Delivery Method MDM MDM MDM Narrative Medical decision making narrative: Patient is a 85-year-old female presenting to the emergency department for 3 unwitnessed falls at home. Patient was seen and examined. She is hypotensive on arrival at 88/48. Otherwise vitals are stable. She is mentating normal. Given the patient's age and the fact that she is a poor historian, CT imaging including brain, cervical spine, chest, abdomen pelvis was ordered. Concern for possible traumatic injury causing the hypotension. X-ray of the right knee was ordered given the bruising. Lab work was also obtained. Daughters were concerned about a possible UTI. With the low blood pressure would want to rule out possible sepsis. Blood cultures and lactate were obtained. With the patient's diarrhea last week it also could be hypovolemia related and fluid bolus will be started. Differential includes but is not limited to: Hypovolemia, orthostatic hypotension causing fall, electrolyte abnormality, infection including UTI or pneumonia, intracranial bleed, ACS EKG shows normal sinus rhythm with low voltage. No ischemic changes. No dysrhythmia. CBC with no leukocytosis and a normal hemoglobin. CMP with no significant abnormalities. Lactic within normal limits. Troponin and reflex mildly elevated however no baseline to compare to and no significant delta change. Urinalysis with small amount of WBC and leukocyte esterase however no bacteria or nitrites. I do not think this is a urinary tract infection. X-ray imaging of the knee was reviewed by myself, no fractures or dislocations. Radiology read in agreement. CT of the brain with no intracranial hemorrhage or large territorial infarct. CT cervical spine shows no acute process. CT chest abdomen pelvis shows no acute traumatic findings in the chest, abdomen, or pelvis. Decompressed thick-walled proximal and mid sigmoid colon, possibly related to subacute diverticulitis. Superimposed stricture or neoplasm not excluded and should be further assessed with endoscopy. No colonic obstruction. Gas-filled collection versus diverticulum between the midsigmoid colon and urinary bladder dome suspicious for colovesical fistula. There is associated cystitis and 1 focus of gas in the urinary bladder lumen. 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 Follow-up abdominal MRI with MRCP recommended in 3-6 months. No retroperitoneal hematoma or other evidence of occult bleeding. Chronic left rib fractures. I spoke to on-call general surgeon, Dr. Snyder, to see if he could review the images and provide any recommendations related to the possible fistula. He reported that he was not by a computer and had no specific recommendations. I discussed the CT findings extensively with the patient and family at bedside which included 2 daughters that primarily care for her. I explained that there is evidence of diverticulitis and there is possibility of a colovesical fistula however she is not presenting as such. She is not having any abdominal pain. She has had no fevers and her urine appears yellow and no significant signs of infection on urinalysis. I would expect the still be much more contaminated with bacteria and white blood cells if it was a fistula. She has no leukocytosis. All of the above was discussed with them and shared decision making was used. I offered transfer to a tertiary center where there is a colorectal surgeon versus discharge home on antibiotics for diverticulitis. Her blood pressure is much improved after 2 L fluids. I think the diverticulitis caused her to have diarrhea last week which then caused her to be hypovolemic which may have contributed to the falls. Daughter is at bedside states that her normal blood pressure is around 100/50 which is consistent with her blood pressures after fluids. Patient and daughters would like to be discharged on antibiotics. First dose was given here. I explained to them return precautions will be very strict including any abdominal pain, fevers, nausea, vomiting, change in color of urine or concern for UTI. I also discussed the incidental findings of the pancreatic cystic lesion that needs follow-up in 3 to 6 months. They verbalized understanding. Patient discharged from the Emergency Department. I instructed them to either follow-up with their primary care physician or promptly return to the Emergency Department for reevaluation should symptoms worsen or new symptoms develop. I explained what symptoms would indicate the need to return to the emergency department. Shared decision making was used. The patient voiced understanding of the treatment plan and is agreeable with it. Clinical impression Frequent falls Knee contusion Diverticulitis History & Record Review Discussion w/independent historian: Patient and Family Lab Data Attestation: I reviewed the patient's lab results. Labs: Laboratory Results - last 24 hr 09/05/25 09/05/25 09/05/25 11:05 12:48 13:30 WBC 8.0 RBC 3.84 L Hgb 12.3 Hct 36.7 L MCV 95.6 MCH 32.0 MCHC 33.5 RDW Std Deviation 42.6 RDW Coeff of Rich 12.3 Plt Count 240 MPV 11.0 Immature Gran % (Auto) 0.500 Neut % (Auto) 86.9 H Lymph % (Auto) 7.7 L Ransom % (Auto) 4.7 Eos % (Auto) 0.0 Baso % (Auto) 0.2 Absolute Neuts (auto) 7.0 Absolute Lymphs (auto) 0.62 L Nucleated RBC % 0 Sodium 137 Potassium 3.8 Chloride 101 Carbon Dioxide 26.6 Anion Gap 9 BUN 19 Creatinine 0.95 Estim Creat Clear Calc 42.48 L Est GFR (MDRD) Non-Af 59 L BUN/Creatinine Ratio 20.4 H Glucose 136 H Lactic Acid 1.4 Calcium 9.0 Total Bilirubin 0.74 AST 21 ALT 14 Alkaline Phosphatase 50 Troponin T High Sens 18 H Troponin T Hi Sens 2 Hr 17 H Total Protein 6.2 Albumin 3.1 L Globulin 3.0 Albumin/Globulin Ratio 1.0 Urine Color Yellow Urine Clarity Clear Urine pH 7.0 Ur Specific Diggs 1.005 Urine Protein 30 H Urine Glucose (UA) Normal Urine Ketones Negative Urine Occult Blood Negative Urine Nitrite Negative Urine Bilirubin Negative Urine Urobilinogen 1 H Ur Leukocyte Esterase 25 H Urine RBC 0 SEEN Urine WBC 5-10 SEEN Ur Squamous Epith Cells 0-5 SEEN Urine Bacteria 0 SEEN Urine Mucus 0 SEEN Radiography Diagnostic Testing: Clinical Impression(s) from Imaging Studies Brain CT 09/05/25 11:30 IMPRESSION: No intracranial hemorrhage or large territorial infarct. Microangiopathic disease hinders exclusion of a small acute infarct; CTP (CT Perfusion scan) or MRI with diffusion weighted imaging would provide further detail of the parenchyma should additional information be required. Reading Location: [facility] Cervical Spine CT 09/05/25 11:30 IMPRESSION: No acute CT process in the cervical spine. Right apical pleural-parenchymal disease is noted, separately dictated on CT chest. Reading [facility] Chest/Abdomen/Pelvis CT 09/05/25 11:30 IMPRESSION: 1. No acute traumatic findings in the chest, abdomen, or pelvis. 2. Decompressed thick-walled proximal and mid sigmoid colon, possibly related to subacute diverticulitis. Superimposed stricture or neoplasm not excluded and should be further assessed with endoscopy. No colonic obstruction. 3. Gas-filled collection versus diverticulum between the midsigmoid colon and urinary bladder dome suspicious for colovesical fistula. There is associated cystitis and 1 focus of gas in the urinary bladder lumen. 4. 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 Follow-up abdominal MRI with MRCP recommended in 3-6 months. 5. No retroperitoneal hematoma or other evidence of occult bleeding. Chronic left rib fractures. Reading Location: [facility] Knee X-Ray 09/05/25 11:35 IMPRESSION: No acute fracture. Reading Location: [id number] Discharge Plan Triage Chief Complaint: Fall ED Provider: Nicci Pineda Dx/Rx/DC Orders Clinical Impression: Diverticulitis, Diarrhea, Hypovolemia, Fall Instructions: Dehydration, Diverticulitis Dc, ED Fall Prevention Prescriptions: New amoxicillin-pot clavulanate 875-125 mg tablet 1 tab PO Q12H 7 Days Qty: 14 0RF No Action duloxetine [Cymbalta] 30 mg capsule,delayed release(DR/EC) 30 mg PO BID apixaban 5 mg tablet 5 mg PO BID Qty: 180 3RF pravastatin 10 mg tablet 10 mg PO QODAY Patient Comments: had day before Coral Calcium 133 mg calcium -133 unit-67 mg capsule 1 cap PO DAILY Prolia 60 mg/mL syringe 60 mg subcut [id number] levetiracetam 250 mg tablet 500 mg PO QPM cholecalciferol (vitamin D3) 125 mcg (5,000 unit) tablet 125 mcg PO QDAY cyanocobalamin (vitamin B-12) 1,000 mcg tablet 1,000 mcg PO QDAY apple cider vinegar 500 mg tablet PO Fish Oil Extra Strength 435-880 mg capsule PO vit C,X-Fp-hupax-lutein-zeaxan 1 EACH capsule 1 ea PO BID Syfovre (PF) 15 mg /0.1 mL solution 15 mg intravitreal [id number] Patient Comments: gets shot once every 8weeks in each eye levetiracetam 250 mg tablet 250 mg PO DAILY acetaminophen 500 mg Tablet 1,000 mg PO Q6H PRN PRN (Reason: Pain Score 1-10) Qty: 0 0RF metoprolol succinate 25 mg tablet extended release 24 hr 12.5 mg PO DAILY Qty: 45 3RF Primary Care Provider: Juju Lopez Referrals: Juju Lopez DO [Primary Care Provider, Medical] - As soon as possible Activity Restrictions/Additional Instructions: Take the antibiotic twice a day for the next 7 days. You need to return to the emergency department if you develop fever, chills, worsening abdominal pain, nausea or vomiting. Your evaluation in the Emergency Department did not reveal any acute reason for admission. However, I want to emphasize that you may be early in the course of a disease process or illness even if it is not present. For this reason you should follow-up within 24 hours for reevaluation with either your primary care physician or if necessary back here in the Emergency Department. You should return to the Emergency Department immediately if your symptoms worsen or new symptoms develop. 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 Follow-up abdominal MRI with MRCP recommended in 3-6 months. Print Language: Macedonian Disposition Disposition: Home, Self Care Discharge Date/Time: 09/05/25 16:11
[2025-09-05 11:26] LABS: Hematocrit 36.7 % (37-47); Hemoglobin 12.3 g/dL (12.0-15.0); Immature Granulocytes Count 0.040 X10^3/uL (0.0-0.0); Mean Corp Hgb Conc 33.5 g/dL (32-36); Mean Corpuscular Volume 95.6 fL (81-99); Mean Platelet Vol. 11.0 fl (6.2-12.0); NRBC Flagged by Analyzer 0 % (0-5); Platelet Count 240 K/mm3 (150-450); RBC Distribution Width CV 12.3 % (11.6-14.6); RBC Distribution Width SD 42.6 fl (35.1-43.9); Red Blood Count 3.84 M/mm3 (4.2-5.4); White Blood Count 8.0 K/mm3 (4.4-11.0)
--- NOTE | 2025-09-05 11:30 | CT_ITS ---
PROCEDURE: CT/Spine Cervical without Contras
--- NOTE | 2025-09-05 11:30 | CT_ITS ---
PROCEDURE: CT/CT Chest, Abd, Pel w/Contrast
--- NOTE | 2025-09-05 11:30 | CT_ITS ---
EXAM: CT/Brain/Head without Contrast
--- NOTE | 2025-09-05 11:35 | RAD_ITS ---
RAD/Knee 1 or 2 Views
[2025-09-05 11:51] LABS: Troponin T High Sensitivity 18 ng/L (<=14)
[2025-09-05 11:52] LABS: AST(SGOT) 21 U/L (<=31); Alanine Aminotransfer ALT/SGPT 14 U/L (<=34); Albumin, Serum 3.1 g/dL (3.4-4.8); Alkaline Phosphatase 50 U/L (35-104); Anion Gap 9 (5-15); BUN 19 mg/dL (4-19); BUN/Creat Ratio 20.4 RATIO (10-20); Calcium,Total 9.0 mg/dL (7.6-11.0); Carbon Dioxide 26.6 mmol/L (21.0-32.0); Chloride 101 mmol/L (98-108); Estimated Creatinine Clearance 42.48 ml/min (50-250); Globulin 3.0 g/dL (2.2-4.2); Glucose 136 mg/dL (70-99); Potassium 3.8 mmol/L (3.3-5.1)
[2025-09-05 12:00] VITALS: BP 95/52; PULSE 77; RESP 18; TEMP 36.5; O2SAT 98
[2025-09-05 12:52] LABS: Mucous, Urine 0 SEEN /hpf (<or=2+); Red Blood Cells-Urine 0 SEEN /hpf (0-5)
[2025-09-05 12:54] LABS: Color, Urine Yellow (Yellow); Glucose, Dipstick Normal (Normal); Ketone-Dipstick Negative (Negative); Leukocyte Esterase-Dipstick 25 /ul (Negative); Nitrite-Dipstick Negative (Negative); Occult Blood-Urine Negative /ul (Negative); Protein-Dipstick 30 mg/dl (Negative); Specific Gravity, Urine 1.005 (1.002-1.030); Urine Bilirubin Dipstick Negative (Negative)
[2025-09-05 13:00] VITALS: BP 90/46; PULSE 76; RESP 20; TEMP 36.6; O2SAT 96
[2025-09-05 13:01] LABS: Squamous Epithelial Cells - UA 0-5 SEEN /hpf (5-10)
[2025-09-05 13:57] LABS: Troponin T High Sens 2 HR 17 ng/L (<=14)
[2025-09-05 14:00] VITALS: BP 99/43; PULSE 77; RESP 17; O2SAT 98
[2025-09-05 15:00] VITALS: BP 117/54; PULSE 78
[2025-09-05 16:11] VITALS: BP 114/64; PULSE 74; RESP 16; TEMP 37; O2SAT 100
== END 2025-09-05 16:11 | disposition home or self-care (01) ==
PROVIDERS: Emergency Provider Student in an Organized Health Care Education/Training Program; PCP Family Medicine; Visit Provider Student in an Organized Health Care Education/Training Program
DX: K57.92 Diverticulitis of intestine, part unspecified, without perforation or abscess without bleeding (principal); I48.0 Paroxysmal atrial fibrillation; E86.1 Hypovolemia; I10 Essential (primary) hypertension; R19.7 Diarrhea, unspecified; R29.6 Repeated falls; Z79.01 Long term (current) use of anticoagulants; Z85.3 Personal history of malignant neoplasm of breast; Z86.73 Personal history of transient ischemic attack (TIA), and cerebral infarction without residual deficits; Z90.11 Acquired absence of right breast and nipple; F32.A Depression, unspecified; Z79.899 Other long term (current) drug therapy; Z98.41 Cataract extraction status, right eye; Z98.42 Cataract extraction status, left eye; S80.01XA Contusion of right knee, initial encounter
CPT/HCPCS: 70450; 71260; 72125; 73560; 74177; 80053; 81001; 83605; 84484; 85025; 87040; 87149; 87186; 87631; 93005; 96360; 96361; 99284; Q9967; A4216

== ENCOUNTER 2025-09-21 20:45 | Inpatient (IN) | payer MEDICARE, SELFPAY ==
[2025-09-21] VITALS (7 sets, daily range): BP systolic 92–113; BP diastolic 51–92; PULSE 135–204; RESP 19–24; TEMP 36.7–37.1; O2SAT 94–100; BMI 29.5
--- NOTE | 2025-09-21 20:57 | EKG12_ITS ---
Test Reason : DYSRHYTHMIA Blood Pressure : */* mmHG Vent. Rate : 174 BPM Atrial Rate : * BPM P-R Int : * ms QRS Dur : 68 ms QT Int : 246 ms P-R-T Axes : * 30 42 degrees QTcB Int : 418 ms Critical Test Result: High HR Atrial fibrillation with rapid ventricular response Nonspecific ST abnormality Abnormal ECG Confirmed by KATIE PRAJAPATI, JAYLIN ([id number]), digital editor GALINDO SHEPPARD ([id number]) on 09/22/2025 7:30:34 AM Referred By: BROOKLYNN Confirmed By: JAYLIN WILSON MD
--- NOTE | 2025-09-21 21:04 | CT_ITS ---
PROCEDURE: CT BRAIN/HEAD WITHOUT CONTRAST 09/21/2025 REASON FOR EXAM: HEAD INJURY ON THINNER TECHNIQUE: Procedure Code: CTBR Modality: CT Procedure: BRAIN/HEAD WITHOUT CONTRAST Coronal and Sagittal reconstruction series were provided. One or more dose reduction techniques were used (e.g., Automated exposure control, adjustment of the mA and/or kV according to patient size, use of iterative reconstruction technique. RADIATION DOSE SUMMARY: CTDlvol: 44.99 mGy DLP: 779.24 mGycm COMPARISON: 09/05/2025 FINDINGS: No acute intracranial hemorrhage, extra-axial collection, mass-effect, or acute appearing territorial infarct. Moderate generalized brain parenchymal volume loss, and advanced chronic ischemic changes with stable appearing multifocal infarcts in the bilateral cerebral hemispheres. Atherosclerotic vascular calcifications. Absent beaver ocular lenses. Intact visualized skull base and calvarium. Well-aerated imaged paranasal sinuses and bilateral mastoid air cells. CT/Brain/Head without Contrast IMPRESSION: No acute intracranial abnormality. Stable appearing multifocal chronic infarcts in the bilateral cerebral hemisphe res. Reading Location: [id number]
--- NOTE | 2025-09-21 21:04 | RAD_ITS ---
PROCEDURE: PELVIS 1 OR 2 VIEWS 09/21/2025 REASON FOR EXAM: FALLS. TECHNIQUE: Procedure Code: RADPEL Modality: DX Procedure: PELVIS 1 OR 2 VIEWS COMPARISON: None. FINDINGS: No acute fracture or dislocation. Alignment is anatomic. Preserved joint spaces. No aggressive osseous lesion. Normal bone mineralization. Grossly unremarkable soft tissues. RAD/Pelvis 1 or 2 Views IMPRESSION: No acute fracture or dislocation. Reading Location: [id number]
--- NOTE | 2025-09-21 21:07 | EX.ED.DYSGE1 ---
HPI History of Present Illness Chief Complaint: Weakness Detail of Chief Complaint: Multiple falls at home. Informant: patient and family (Accompanied by her daughter.) Onset/Context/Timing Onset: Weeks Context: Gradual Onset Timing: Continuous Current Severity: Moderate Maximum Severity: Moderate Narrative Narrative: 85-year-old female history of A-fib on Eliquis, prior stroke, history of seizures currently taken off her medications, UTIs, hypertension history of breast cancer 40 years ago. Patient's had multiple falls over the last week. She has hit her head. She lives at home with her other daughter. She has been seen in the ER within the last several weeks. She has had no admissions. She was treated with antibiotic for possible diverticulitis. Then developed C. difficile currently is on vancomycin by her primary care physician out of [place]. Patient's had diarrhea for 2 weeks with decreased oral intake. Prior similar symptoms: Yes Recent Illness/Hospitalization: No PFSH PFS Medical History MRSA (methicillin resistant staph aureus) culture positive Atrial fibrillation Seizures History of fall Wears hearing aid Wears glasses Cancer Depression Walker as ambulation aid Arthritis UTI (urinary tract infection) Loss of consciousness Difficulty swallowing Blood in stool History of diverticulitis Non-smoker CPAP (continuous positive airway pressure) dependence Leg cramps History of pain when walking History of edema Hypertension History of echocardiogram Cardiology follow-up encounter Seizure Paroxysmal atrial fibrillation Macular degeneration Left hemiparesis Cerebrovascular disease Gammopathy 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 Snoring Acute right MCA stroke (02/08/16) Obesity (BMI 30.0-34.9) Home Medications ?Medication ?Instructions ?Recorded ?Last Taken ?Type vit C 250 mg-vit E 90 mg-zinc 40 1 ea PO BID eye vitamin 05/07/18 Unknown History mg-copper 1 [id number] capsule apixaban 5 mg tablet 5 mg PO BID blood thinner #180 tabs 12/04/19 07/10/24 09:05 Rx pravastatin 10 mg tablet 10 mg PO QODAY CHOLESTEROL 01/12/21 07/08/24 22:55 History calcium carb 133 mg-vitD3 133 1 cap PO DAILY Supplement 02/08/22 Unknown History unit-mag amino acid chelate 67mg capsule (Coral Calcium) duloxetine 30 mg capsule,delayed 30 mg PO BID Depression 02/08/22 07/10/24 09:00 History release (Cymbalta) denosumab 60 mg/mL subcutaneous 60 mg subcut [id number] Osteoporosis 05/02/23 Unknown History syringe (Prolia) levetiracetam 250 mg tablet 250 mg PO DAILY Seizures 07/10/24 Unknown History acetaminophen 500 mg tablet 1,000 mg (2 x 500 mg) PO Q6H PRN 07/30/24 Unknown Rx PRN Pain Score 1-10 #0 tabs apple cider vinegar 500 mg tablet mg PO 09/21/24 Unknown History cholecalciferol (vitamin D3) 125 25 mcg PO QDAY 09/21/24 Unknown History mcg (5,000 unit) tablet cyanocobalamin (vitamin B-12) 1,000 mcg PO QDAY 09/21/24 Unknown History 1,000 mcg tablet levetiracetam 250 mg tablet 500 mg PO QPM 09/21/24 Unknown History omega-3 fatty acids-fish oil 435 cap PO 09/21/24 Unknown History mg-880 mg capsule (Fish Oil Extra Strength) pegcetacoplan (PF) 15 mg/0.1 mL 15 mg intravitreal [id number] Eyes 09/21/24 Unknown History intravitreal solution (Syfovre (PF)) metoprolol succinate 25 mg 12.5 mg (1/2 x 25 mg) PO DAILY 04/20/25 Unknown Rx tablet,extended release 24 hr blood pressure #45 tabs vancomycin 125 mg capsule 125 mg PO 09/21/25 Unknown History Allergy/AdvReac Type Severity Reaction Status Date / Time No Known Allergies Allergy Verified 09/05/25 10:35 Family History Father CAD (coronary artery disease) Aunt Breast cancer Sister Uterine cancer Surgical History History of laser refractive surgery S/P laser cataract surgery History of bilateral cataract extraction History of colonoscopy History of total mastectomy of right breast Social History household members: family Smoking Status: Never smoker alcohol intake: never substance use type: does not use ROS ROS ED ROS Narrative Diarrhea. Falls. Weakness. Accelerated heart rate. Constitutional Constitutional ED: Denies chills or fever(s) Eyes Eyes: Denies blurry vision ENT ENT ED: Denies ear pain Cardiovascular Cardiovascular: Denies chest pain Respiratory/Chest Respiratory/Chest: Denies cough or dyspnea Gastrointestinal Gastrointestinal: Reports diarrhea; Denies abdominal pain, constipation, melena, nausea or vomiting Genitourinary Genitourinary ED: Denies dysuria or hematuria Musculoskeletal Musculoskeletal: Denies arthralgias Neurologic Neurologic: Denies headache(s) Psychiatric Psychiatric: Denies anxiety Endocrine Endocrinology: Denies cold intolerance Hematologic/Lymphatic Hematologic/Lymphatic: Reports none Allergic/Immunologic Allergic/Immunologic ED: Denies mouth swelling, tongue swelling or urticaria EXAM Physical Exam Narrative Exam Narrative: Elderly female sitting upright in bed. Temperature is 98. Her heart rate is 200. She is in A-fib RVR on the monitor. She is also clinically dehydrated. Initial blood pressure 108/92. Pulse ox 95% on room air no hypoxia. Daughter at bedside. H EENT exam pupils round reactive light. Dry mucous membranes. No facial trauma or facial droop. Small bruise posterior scalp. Face and scalp nontender C-spine and trachea nontender. Back nontender. Lungs clear to auscultation bilaterally. Heart tachycardic rate about 200 no murmur. Chest wall ribs nontender. Abdomen soft nontender. No peritoneal signs. No distention. No pulsatile mass. Pelvic girdle intact. Moving all 4 extremities. Nontender no deformity. Neurologically she is awake. She is answering questions she is following commands. She is actually tolerating her tachycardia and dehydration pretty well actually given her age. Const Vital Signs: 09/21/25 20:46 09/21/25 20:51 09/21/25 20:54 Temperature 98.2 F 98.7 F Temperature Source Oral Oral Pulse Rate 202 H 204 H Respiratory Rate 24 H 23 H Respiratory Effort Normal Respiratory Pattern Normal Blood Pressure 108/92 H 108/92 H Blood Pressure Mean 97 97 Pulse Ox 95 98 Oxygen Delivery Method Room Air Room Air 09/21/25 21:01 09/21/25 21:02 09/21/25 21:15 Temperature Temperature Source Pulse Rate 157 H 142 H Respiratory Rate 19 H 20 H Respiratory Effort Respiratory Pattern Blood Pressure Blood Pressure Mean Pulse Ox 99 Oxygen Delivery Method Room Air 09/21/25 22:06 Temperature 98.4 F Temperature Source Oral Pulse Rate 135 H Respiratory Rate 21 H Respiratory Effort Respiratory Pattern Blood Pressure 113/51 L Blood Pressure Mean 71 Pulse Ox 100 Oxygen Delivery Method MDM MDM MDM Narrative Medical decision making narrative: 85-year-old female multiple falls and weakness at home. Clinically looks dehydrated most likely from the diarrhea she has been having over the last 2 weeks. She is also in A-fib RVR. She undergo cardiac/factious workup. Should be treated with a liter of fluid she may need additional fluid. She will be given Cardizem slow push to try to control her A-fib RVR. And she will eventually need admitted. Repeat exam at 11:11 PM. Patient clinically looks better if she remains in A-fib heart rates around 160. Should be started on a Cardizem drip. Initially the Cardizem helped her nurse says her heart rates been going back up. Add her up to the bathroom also. I wanted to test results and imaging results of both her and her daughter. They are comfortable with her being admitted. History & Record Review Discussion w/independent historian: Patient and Family Additional record(s) reviewed:: Prior inpatient record, Prior outpatient record, Prior ED visit and Prior labs Lab Data Attestation: I reviewed the patient's lab results. Lab results narrative: CBC shows a white count of 20.5. H&H 13 and 42. Platelets 415. 83% neutrophils. PT/INR of 18 and 1.5. PTT at 35. Lactic acid 1.9. Initial troponin 17. Chemistries show a gap of 14. Normal BUN 14 creatinine 0.79. Glucose 129. Urinalysis is negative. No nitrates. No white or red cells. Only 1+ bacteria. Chest x-ray unremarkable. Pelvis x-ray unremarkable. CT brain chronic changes. Labs: Laboratory Results - last 24 hr 09/21/25 09/21/25 09/21/25 20:53 21:01 21:08 WBC 20.5 H RBC 4.36 Hgb 13.4 Hct 42.3 MCV 97.0 MCH 30.7 MCHC 31.7 L RDW Std Deviation 44.3 H RDW Coeff of Rich 12.5 Plt Count 415 MPV 10.9 Immature Gran % (Auto) 0.500 Neut % (Auto) 83.8 H Lymph % (Auto) 8.6 L [place] % (Auto) 6.6 Eos % (Auto) 0.1 Baso % (Auto) 0.4 Absolute Neuts (auto) 17.1 H Absolute Lymphs (auto) 1.76 Nucleated RBC % 0 PT 18.7 H INR 1.5 APTT 35.2 Sodium 139 Potassium 3.8 Chloride 106 Carbon Dioxide 19.5 L Anion Gap 14 BUN 14 Creatinine 0.79 Estim Creat Clear Calc 50.03 Est GFR (MDRD) Non-Af 73 BUN/Creatinine Ratio 17.3 Glucose 129 H Lactic Acid 1.9 Calcium 8.9 Troponin T High Sens 17 H Urine Color Yellow Urine Clarity Clear Urine pH 6.0 Ur Specific [place] 1.015 Urine Protein 30 H Urine Glucose (UA) Normal Urine Ketones 50 H Urine Occult Blood 10 H Urine Nitrite Negative Urine Bilirubin 1 H Urine Urobilinogen Normal Ur Leukocyte Esterase 25 H Urine RBC 0-5 SEEN Urine WBC 0-5 SEEN Ur Squamous Epith Cells 0-5 SEEN Urine Bacteria 1+ Urine Mucus 0 SEEN Radiography Chest X-Ray - ED: 1 View, Read by ED Physician, Heart, Lungs, Mediastinum, Bony Structures, No Acute Disease and Chronic Changes Diagnostic Testing: Clinical Impression(s) from Imaging Studies Brain CT 09/21/25 21:04 IMPRESSION: No acute intracranial abnormality. Stable appearing multifocal chronic infarcts in the bilateral cerebral hemispheres. Reading Location: [facility] Pelvis X-Ray 09/21/25 21:04 IMPRESSION: No acute fracture or dislocation. Reading Location: [facility] Chest X-Ray 09/21/25 21:30 IMPRESSION: No evidence of acute cardiopulmonary disease. Chronically elevated right hemidiaphragm, unchanged. Reading Location: [facility] Chest x-ray, portable, single view shows normal cardiac silhouette. No pneumonia. No effusions. Chronically elevated right hemidiaphragm. Interpreted both by myself and radiologist. Pelvis x-ray 1 view interpreted by myself and radiology shows no acute fracture. No acute abnormality. Chronic changes. Rhythm Strip Rhythm Strip: A-fib Rate: 174 Ectopy: None EKG Initial EKG: Attestation: I personally reviewed and interpreted this EKG as follows: Interpretation: Atrial Fibrillation Comments: A-fib RVR rate of 174. No acute signs of IN or ischemia. No ST elevation or significant depression. Critical Care Time Critical Care Time: Yes Critical care time (excluding procedures): 30-74 minutes, Including time spent:, Discussing w/Patient &/or Family/Software Manager, Discussing w/Consultants, Arranging Admission or Transfer, Performing Direct Patient Care at Bedside and - (35 minutes) Discharge Plan Dx/Rx/DC Orders Clinical Impression: Generalized weakness, Multiple falls, Atrial fibrillation with RVR, Chronic anticoagulation, Head injury, Clostridioides difficile diarrhea, Leukocytosis Disposition Disposition: Acute Care Hospital [facility]
[2025-09-21 21:11] LABS: Hematocrit 42.3 % (37-47); Hemoglobin 13.4 g/dL (12.0-15.0); Immature Granulocytes Count 0.110 X10^3/uL (0.0-0.0); Mean Corp Hgb Conc 31.7 g/dL (32-36); Mean Corpuscular Volume 97.0 fL (81-99); Mean Platelet Vol. 10.9 fl (6.2-12.0); NRBC Flagged by Analyzer 0 % (0-5); Platelet Count 415 K/mm3 (150-450); RBC Distribution Width CV 12.5 % (11.6-14.6); RBC Distribution Width SD 44.3 fl (35.1-43.9); Red Blood Count 4.36 M/mm3 (4.2-5.4); White Blood Count 20.5 K/mm3 (4.4-11.0)
[2025-09-21] MEDS: 0.9% Normal Saline (1000mL) 1,000 ML 999 ML IV (21:11)
--- OUTSIDE RECORDS SUMMARY | 2025-09-21 21:25 | XMS RPT_ITS | CCD ---
Author Organization [facility] Care Team Providers Care Bingo Caller Name Role Phone Falguni Almendarez Unavailable Unavailable MD Raul, Augusto Shaver Unavailable Kaela Sam RN Unavailable Unavailable Pop Mckeon Unavailable Unavailable Kaela Sam RN Unavailable Unavailable RAQUEL DUMONT Unavailable Unavailable RAQUEL DUMONT Unavailable Unavailable RAQUEL DUMONT Unavailable Unavailable PROVIDER, UNKNOWN Unavailable Unavailable Raquel Dumont Unavailable Unavailable PROVIDER, UNKNOWN Unavailable Unavailable Falguni Almendarez Unavailable Unavailable MD Raul, Augusto Shaver Unavailable [phone] RUPA Shay, Brook Vázquez Unavailable Unavailabl e Pop Mckeon Y Unavailable Unavailable Falguni Almendarez Unavailable Unavailable Falguni Almendarez Unavailable Unavailable Kaela Sam RN Unavailable Unavailable RUPA Shay, Brook Vázquez Unavailable Unavailabl e ИВАН LOPEZ DO Primary Care Physician ИВАН LOPEZ DO Primary Care Physician [phone] LYNDSEY LOPEZ DOISTIN Primary Care Unavailable JESSICA DOLYNDSEYИВАН Attending Unavailable JESSICA DOLYNDSEYИВАН Attending Unavailable JESSICA DO ИВАН Primary Care Unavailable JESSICA DO ИВАН Primary Care Unavailable JESSICA DO ИВАН Attending Unavailable JESSICA DO, ИВАН Primary Care Unavailable JESSICA DO, ИВАН Attending Unavailable JESSICA DO, ИВАН Attending Unavailable JESSICA DO ИВАН Primary Care Unavailable JESSICA ASHLEY ИВАН Attending Unavailable LYNDSEY LOPEZ DOISTIN Primary Care Unavailable Иван Lopez DO Primary Care Provider TOI MILLER Attending Unavailable JESSICA, ИВАН Primary Care Unavailable JESSICA DO, ИВАН Attending Unavailable JESSICA DO, ИВАН Primary Care Unavailable JESSICA DO, ИВАН Primary Care Unavailable JESSICA DO, ИВАН Attending Unavailable JESSICA DO, ИВАН Primary Care Unavailable JESSICA DO, ИВАН Attending Unavailable JESSICA DO, ИВАН Attending Unavailable JESSICA DO, ИВАН Primary Care Unavailable ROMAR DO, DR MYRICK Attending Unavailable JESSICA DO, ИВНА Primary Care Unavailable JESSICA DO, ИВАН Primary Care Unavailable ROMAR DO, DR MYRICK Attending Unavailable JESSICA DO, ИВАН Primary Care Unavailable ROCK RN CARDIOLOGY-GAS PIT WORKER, LERROXANNE Attending Unavailabl e JESSICA DO, ИВАН Primary Care Unavailable ROCK RN CARDIOLOGY-GAS PIT WORKER, LERICA Attending Unavailabl e JESSICA DO, ИВАН Attending Unavailable JESSICA DO, ИВАН Primary Care Unavailable Alfred Rick Attending Unavailable Roof, Tai H Referring Unavailable Jessica, Иван Primary Care Unavailable Roof, Tai H Attending Unavailable Roof, Tai H Referring Unavailable Jessica, Иван Primary Care Unavailable Jessica, Иван Referring Unavailable Jessica, Иван Primary Care Unavailable Roof, Tai H Attending Unavailable Jessica, Иван Referring Unavailable Roof, Tai H Attending Unavailable Jessica, Иван Primary Care Unavailable Jessica, Иван Referring Unavailable Jessica, Иван Primary Care Unavailable Jessica, Иван Attending Unavailable Jessica, Иван Primary Care Unavailable MiriamNicci Attending Unavailable Allergies Allergy Classification Reported Allergen(s) Allergy Type Date of Onset Reaction(s) Facility (18 sources) Sulfonamides (Antibiotic); Translations: [sulfa drugs] Drug allergy Fluttering heart (finding), Asthenia (finding) [facility] (16 sources) Alendronate; Translations: [alendronate] Drug Allergy Intolerance, function (observable entity) [facility] Medications Current Medications Medication Drug Class(es) Dates Sig (Normalized) Sig (Original) 0.1 ML pegcetacoplan 150 MG/ML Injection [Syfovre] (7 sources) Start: 08-07-2024 Syfovre 150 mg/mL intravitreal solution Dose : 15 mg =, Eyes, both, Once, repeat every 25 to 60 days, # 1 EA, 0 Refill(s) Start Date: 08/07/24 Status: Ordered Medication Dispense Status: Completed Quantity: 1.0 Unit: EA Total Allowed Fills: 1 Fills Dispensed: 0 Start: 08-07-2024 Syfovre 150 mg /mL intravitreal solution Dose : 15 mg =, Eyes, both, Once, repeat every 25 to 60 days, # 1 EA, 0 Refill(s) Start Date: 08/07/24 Status: Ordered Quantity: 1.0 Unit: EA Repeat number: 1 Start: 08-07-2024 Syfovre 150 mg /mL intravitreal solution Dose : 15 mg =, Eyes, both, Once, repeat every 25 to 60 days, # 1 EA, 0 Refill(s) Start Date: 08/07/24 Status: Ordered acetaminophen 325 mg oral tablet (20 sources) Start: 01-12-2021 take 325 mg by mouth every six hours as needed Acetaminophen Active 325 MG PO EVERY 6 HOURS NEEDED January 12, 2021 2:01pm Start: 05-23-2018 End: 01-12-2021 take 650 mg by mouth every six hours as needed Acetaminophen Discontinued 650 MG PO EVERY 6 HOURS NEEDED May 22, 2018 11:00pm January 12, 2021 2:02pm Start: 03-20-2018 Tylenol 325 mg oral capsule Dose : 650 mg = 2 cap(s), Oral, q4h, PRN as needed for pain, # 20 cap(s), 0 Refill(s) Start Date: 03/20/18 Status: Ordered Medication Dispense Status: Completed Quantity: 20.0 Unit: cap(s) Total Allowed Fills: 1 Fills Dispensed: 0 Start: 03-19-2016 TYLENOL ARTHRI TIS PAIN 650 MG CR-TABS As needed ACETAMINOPHEN Kaela Sam RN Start: 03-19-2016 TYLENOL ARTHRI TIS PAIN 650 MG CR-TABS As needed ACETAMINOPHEN Kaela Sam RN Start: 03-19-2016 TYLENOL ARTHRI TIS PAIN 650 MG CR-TABS As needed ACETAMINOPHEN Kaela Sam RN alendronic acid 70 mg oral tablet (1 source) Bisphosphonate Start: 11-10-2021 Fosamax 70 mg oral tablet Dose : 70 mg = 1 tab(s), Oral, qWeek, # 13 tab(s), 3 Refill(s), [facility]acy: [id number], 163, cm, 08/11/21 9:08:00 EDT, Height, kg, 08/11/21 9:08:00 EDT, Dosing Weight Start Date: 11/10/21 Status: Ordered Alive Women's 50+ Multivitamin Gummy (2 sources) Start: 06-14-2025 Alive Women's 50+ Multivitamin Gummy 0 Refill(s) Start Date: 06/14/25 Status: Ordered Medication Dispense Status: Completed Total Allowed Fills: 1 Fills Dispensed: 0 apixaban 5 mg oral tablet (20 sources) Factor Xa Inhibitor Start: 02-26-2025 Eliquis 5 mg oral tablet Dose : 5 mg = 1 tab(s), Oral, BID, # 180 tab(s), 3 Refill(s), [facility]: [facility] #[id number], 161, cm, 02/26/25 10:23:00 EDT, Height, 80.1, kg, 02/26/25 10:10:00 EDT, Dosing Weight Start Date: 02/26/25 Status: Ordered Medication Dispense Status: Completed Quantity: 180.0 Unit: tab(s) Total Allowed Fills: 4 Fills Dispensed: 0 Indications: Paroxysmal atrial fibrillation; Personal history of transient ischemic attack (TIA), and cerebral infarction without residual deficits; Start: 02-27-2024 Eliquis 5 mg o ral tablet Dose : 5 mg = 1 tab(s), Oral, BID, # 180 tab(s), 3 Refill(s), [facility]: [facility] #[id number], 161, cm, 02/27/24 9:43:00 EDT, Height, 78.9, kg, 02/27/24 9:43:00 EDT, Dosing Weight Start Date: 02/27/24 Status: Ordered Start: 02-26-2023 Eliquis 5 mg o ral tablet Dose : 5 mg = 1 tab(s), Oral, BID, # 180 tab(s), 3 Refill(s), [facility]acy: [facility] #[id number], 161, cm, 02/26/23 10:53:00 EDT, Height, 77.5, kg, 02/26/23 10:39:00 EDT, Dosing Weight Start Date: 02/26/23 Status: Ordered Start: 02-16-2016 End: 12-04-2019 Eliquis 5 mg oral tablet Dos e : 5 mg = 1 tab(s), Oral, BID, # 180 tab(s), 3 Refill(s), [facility]acy: [facility] [address] #[id number], 161, cm, 02/26/23 10:53:00 EDT, Height, 77.5, kg, 02/26/23 10:39:00 EDT, Dosing Weight Start Date: 02/26/23 Status: Ordered Calcium (16 sources) Phosphate Binder, Calcium Start: 02-08-2022 calc ium (as carbonate) 500 mg oral tablet 0 Refill(s) Start Date: 02/08/22 Status: Ordered Medication Dispense Status: Completed Total Allowed Fills: 1 Fills Dispensed: 0 Start: 02-08-2022 calcium (as ca rbonate) 500 mg oral tablet 0 Refill(s) Start Date: 02/08/22 Status: Ordered Repeat number: 1 Start: 02-08-2022 calcium (as ca rbonate) 500 mg oral tablet 0 Refill(s) Start Date: 02/08/22 Status: Ordered Calcium [id number]-K9-Czefcsltb Liset (Coral Calcium) 133 mg calcium -133 unit-67 mg capsule (1 source) Start: 02-08-2022 take 1 capsule by mouth once daily Calcium Qxlq-C5-Klvkcflmh Liset (Coral Calcium) 133 mg calcium -133 unit-67 mg capsule Active 1 CAP PO DAILY February 07, 2022 11:00pm cephalexin 500 mg oral capsule (5 sources) Cephalosporin Antibacterial Start: 06-14-2025 End: 06-21-2025 cephalexin 500 mg oral capsule Dose : 500 mg = 1 cap(s), Oral, q8h, X 7 day(s), # 21 cap(s), 0 Refill(s), 06/21/25 12:06:00 PM EDT, Pharmacy: [facility] #[id number], 161, cm, 06/14/25 11:46:00 EDT, Height, 76, kg, 06/14/25 11:46:00 EDT, Dosing Weight Start Date: 06/14/25 Stop Date: 06/21/25 Status: Ordered Medication Dispense Status: Completed Quantity: 21.0 Unit: cap(s) Total Allowed Fills: 1 Fills Dispensed: 0 Start: 10-06-2024 End: 10-13-2024 cephalexin 500 mg oral capsu le Dose : 500 mg = 1 cap(s), Oral, BID, Drink plenty of fluids., X 7 day(s), # 14 cap(s), 0 Refill(s), 10/13/24 2:33:00 PM EST, Pharmacy: [facility] #[id number], 161, cm, 10/06/24 13:12:00 EST, Height, 79.1, kg, 10/06/24 12:59:00 EST, Dosing Weight Start Date: 10/06/24 Stop Date: 10/13/24 Status: Ordered Start: 08-24-2022 End: 08-31-2022 cephalexin 500 mg oral capsu le Dose : 500 mg = 1 cap(s), Oral, q12h, X 7 day(s), # 14 cap(s), 0 Refill(s), 08/31/22 12:22:00 EDT, Pharmacy: [facility] #[id number], 161, cm, 08/23/22 10:45:00 EDT, Height, 78 Start Date: 08/24/22 Stop Date: 08/31/22 Status: Ordered cholecalciferol 0.025 mg chewable tablet (1 source) Vitamin D Start: 02-08-2022 take 25 ug by mouth once daily Cholecalciferol (Vitamin D3) Active 25 MCG PO DAILY February 07, 2022 11:00pm DULoxetine 30 mg delayed release oral capsule (20 sources) Serotonin and Norepinephrine Reuptake Inhibitor Start: 02-08-2022 DULoxetine 30 mg oral delayed release capsule Dose : 30 mg = 1 cap(s), Oral, BID, Managed by neurology, # 60 cap(s), 3 Refill(s), Pharmacy: [facility] #[id number], Depression, 161.5, cm, 02/08/22 15:26:00 EDT, Height Start Date: 06/20/22 Status: Ordered Medication Dispense Status: Completed Quantity: 60.0 Unit: cap(s) Total Allowed Fills: 4 Fills Dispensed: 0 Indications: Major depressive disorder, single episode, unspecified; Start: 06-17-2019 DULoxetine 30 mg oral delayed release capsule Dose : 30 mg = 1 cap(s), Oral, qDay, 0 Refill(s) Start Date: 06/17/19 Status: Ordered Start: 10-20-2018 End: 02-08-2022 take 1 capsule by mouth once daily Duloxetine (Cymbalta) 30 mg capsule,delayed release(DR/EC) Discontinued 30 MG PO DAILY October 20, 2018 12:00am February 08, 2022 12:26pm fish oil (13 sources) Start: 08-07-2024 Fish Oil 1000 mg oral capsule mg = cap(s), Oral, 0 Refill(s) Start Date: 08/07/24 Status: Ordered Medication Dispense Status: Completed Total Allowed Fills: 1 Fills Dispensed: 0 Start: 08-07-2024 Fish Oil 1000 mg oral capsule mg = cap(s), Oral, 0 Refill(s) Start Date: 08/07/24 Status: Ordered Repeat number: 1 Start: 08-07-2024 Fish Oil 1000 mg oral capsule mg = cap(s), Oral, 0 Refill(s) Start Date: 08/07/24 Status: Ordered take 1 tablet by chandan th once daily FISH OIL 1000 MG CAPS One tablet by mouth daily OMEGA-3 FATTY ACIDS [id number] Daylin Cespedespie CAM take 1 tablet by chandan th once daily FISH OIL 1000 MG CAPS One tablet by mouth daily OMEGA-3 FATTY ACIDS [id number] Daylin Sloan LPN Garlic preparation (4 sources) Non-Standardized Food Allergenic Extract Start: 02-26-2025 take 1 tablet by mouth once daily garlic oral tablet Dose = 1 tab(s), Oral, Daily, 0 Refill(s) Start Date: 02/26/25 Status: Ordered Medication Dispense Status: Completed Total Allowed Fills: 1 Fills Dispensed: 0 Start: 02-26-2025 take 1 tablet by chandan th once daily garlic oral tablet Dose = 1 tab(s), Oral, Daily, 0 Refill(s) Start Date: 02/26/25 Status: Ordered Repeat number: 1 ICaps AREDS 2 (7 sources) Start: 08-07-2024 ICaps AREDS 2 0 Refill(s) Start Date: 08/07/24 Status: Ordered Medication Dispense Status: Completed Total Allowed Fills: 1 Fills Dispensed: 0 Start: 08-07-2024 ICamarika AREDS 2 0 Refill(s) Start Date: 08/07/24 Status: Ordered Repeat number: 1 Start: 08-07-2024 ICamarika AREDS 2 0 Refill(s) Start Date: 08/07/24 Status: Ordered Joint AdvantageGold (1 source) Start: 01-12-2021 Joint Advantag eGold Active PO DAILY January 12, 2021 12:00am levETIRAcetam 250 mg oral ta blet (20 sources) Start: 02-26-2023 levETIRAcetam 250 mg oral tablet Dose : 250 mg = 1 tab(s), take 1 tablet by mouth every morning and then take 2 tablets every evening Start Date: 02/26/23 Status: Ordered Medication Dispense Status: Completed Total Allowed Fills: 1 Fills Dispensed: 0 Start: 05-09-2018 Keppra 500 mg oral tablet See Instructions, 1/2 tablet in morning and 1 tablet at night., 0 Refill(s) Start Date: 05/09/18 Status: Ordered Start: 05-09-2018 End: 10-20-2018 take 1 tablet by mouth in the evening Levetiracetam Active 500 MG PO .COMPLEX October 20, 2018 1:57pm 500 mg PO 0.5 (250 mg) in the am and 1 tablet (500 mg) in the evening.; 24 hr metoprolol succinate 25 mg extended release oral tablet (20 sources) beta-Adrenergic Talha Start: 02-26-2018 Toprol -XL 25 mg oral tablet, extended release Dose : 12.5 mg = 0.5 tab(s), Oral, qHS, 0 Refill(s) Start Date: 02/26/18 Status: Ordered Medication Dispense Status: Completed Total Allowed Fills: 1 Fills Dispensed: 0 Start: 02-26-2018 Toprol-XL 25 m g oral tablet, extended release Dose : 12.5 mg = 0.5 tab(s), Oral, qAM, 0 Refill(s) Start Date: 02/26/18 Status: Ordered Start: 07-10-2017 End: 05-02-2023 take 12.5 mg by mouth once daily Metoprolol Succinate Active 12.5 MG PO DAILY May 02, 2023 1:24pm Start: 10-15-2016 take 1 tablet by chandan th once daily TOPROL XL 25 MG [id number] One half tablet by mouth daily METOPROLOL SUCCINATE [id number] Augusto Carter MD Start: 10-15-2016 take 1 tablet by chandan th once daily TOPROL XL 25 MG [id number] One tablet by mouth daily METOPROLOL SUCCINATE [id number] Augusto Carter MD Start: 10-15-2016 take 1 tablet by chandan th once daily TOPROL XL 25 MG [id number] One half tablet by mouth daily METOPROLOL SUCCINATE [id number] Augusto Carter MD Start: 10-15-2016 take 1 tablet by chandan th once daily TOPROL XL 25 MG [id number] One tablet by mouth daily METOPROLOL SUCCINATE [id number] Augusto Carter MD Start: 03-19-2016 End: 10-15-2016 take 1 tablet by mouth once daily TOPROL XL 25 MG [id number] One tablet by mouth daily METOPROLOL SUCCINATE [id number] Augusto Carter MD Start: 03-19-2016 End: 10-15-2016 take 1 tablet by mouth once daily TOPROL XL 25 MG [id number] One half tablet by mouth daily METOPROLOL SUCCINATE [id number] Augusto Carter MD Start: 03-19-2016 take 1 tablet by chandan th once daily TOPROL XL 25 MG [id number] One tablet by mouth daily METOPROLOL SUCCINATE [id number] Kaela Sam RN Start: 03-19-2016 take 1 tablet by chandan th once daily TOPROL XL 25 MG [id number] One half tablet by mouth daily METOPROLOL SUCCINATE [id number] Augusto Carter MD Start: 03-19-2016 take 1 tablet by chandan th once daily TOPROL XL 25 MG [id number] One half tablet by mouth daily METOPROLOL SUCCINATE [id number] Augusto Carter MD Start: 03-19-2016 take 1 tablet by chandan th once daily TOPROL XL 25 MG [id number] One tablet by mouth daily METOPROLOL SUCCINATE [id number] Kaelahalley Sam RN Start: 03-19-2016 End: 10-15-2016 take 1 tablet by mouth once daily TOPROL XL 25 MG [id number] One half tablet by mouth daily METOPROLOL SUCCINATE [id number] Augusto Carter MD Start: 03-08-2016 End: 07-10-2017 take 25 mg by mouth once daily Metoprolol Succinate Di scontinued 25 MG PO DAILY March 07, 2016 11:00pm July 10, 2017 9:22am Carlton Q Plus (1 source) Start: 07-13-2019 take 2 tablets by mouth once daily Carlton Q Plus Active 2 TABLET PO DAILY July 12, 2019 11:00pm pravastatin sodium 10 mg oral tablet (20 sources) HMG-CoA Reductase Inhibitor Start: 02-26-2025 pravastatin 10 mg oral tablet Dose : 10 mg = 1 tab(s), Oral, Every other day, # 90 tab(s), 3 Refill(s), Pharmacy: [facility] #[id number], Hypercholesterolem ia, 161, cm, 02/26/25 10:23:00 EDT, Height, kg, 02/26/25 10:10:00 EDT, Dosing Weight Start Date: 02/26/25 Status: Ordered Medication Dispense Status: Completed Quantity: 90.0 Unit: tab(s) Total Allowed Fills: 4 Fills Dispensed: 0 Indications: Pure hypercholesterolem ia, unspecified; Start: 02-27-2024 pravastatin 10 mg oral tablet Dose : 10 mg = 1 tab(s), Oral, Every other day, # 90 tab(s), 3 Refill(s), Pharmacy: [facility] #[id number], Hypercholesterolemia, 161, cm, 02/27/24 9:43:00 EDT, Height, kg, 02/27/24 9:43:00 EDT, Dosing Weight Start Date: 02/27/24 Status: Ordered Start: 01-12-2021 pravastatin 10 mg oral tablet Dose : 10 mg = 1 tab(s), Oral, Every other day, # 90 tab(s), 3 Refill(s), Pharmacy: [facility] #[id number], Hypercholesterolemia, 161, cm, 02/26/23 10:53:00 EDT, Height, kg, 02/26/23 10:39:00 EDT, Dosing Weight Start Date: 02/26/23 Status: Ordered Start: 05-28-2019 End: 01-12-2021 take 10 mg by mouth once daily Pravastatin Discontinued 10 MG PO DAILY May 27, 2019 11:00pm January 12, 2021 2:22pm Start: 10-20-2018 End: 05-28-2019 take 0.5 tablet by mouth at bedtime Pravastatin Discontinued 40 MG PO .COMPLEX October 20, 2018 1:59pm May 28, 2019 2:26pm 40 mg PO 0.5 tablet (20mg) at bedtime; treat high cholesterol Start: 03-19-2016 End: 05-23-2017 PRAVASTATIN SODIUM 40 MG TAB S on hold PRAVASTATIN SODIUM [id number] Kaela Sam RN Start: 02-16-2016 End: 10-20-2018 take 40 mg by mouth at bedtime Pravastatin Discontinued 40 MG PO AT BEDTIME May 09, 2018 2:03pm October 20, 2018 2:00pm PreserVision AREDS 2 oral capsule (14 sources) Start: 02-26-2018 take 1 capsule by mouth twice daily PreserVision AREDS 2 oral capsule Dose = 1 cap(s), Oral, BID, 0 Refill(s) Start Date: 02/26/18 Status: Ordered Turmeric extract (1 source) Start: 02-08-2022 take 400 mg by mouth once daily Turmeric Active 400 MG PO DAILY February 07, 2022 11:00pm vancomycin 125 mg oral capsule (2 sources) Glycopeptide Antibacterial Start: 06-16-2025 End: 06-26-2025 vancomycin 125 mg oral capsule Dose : 125 mg = 1 cap(s), Oral, q6hr, X 10 day(s), # 40 cap(s), 0 Refill(s), 06/26/25 10:34:00 AM EDT, Pharmacy: [facility]acy #[id number], Diarrhea, 161, cm, 06/14/25 11:46:00 EDT, Height, 76, kg, 06/14/25 11:46:00 EDT, Dosing Weight Start Date: 06/16/25 Stop Date: 06/26/25 Status: Ordered Medication Dispense Status: Completed Quantity: 40.0 Unit: cap(s) Total Allowed Fills: 1 Fills Dispensed: 0 Indications: Diarrhea, unspecified; Vit C,R-Qj-Whbjp-Lutei n-Zeaxan (1 source) Start: 05-07-2018 Vit C,T-Dz-Qqcok-Lutein -Zeaxan Active 1 EACH PO TWICE A DAY May 06, 2018 11:00pm vitamin b12 1 mg oral tablet (1 source) Vitamin B12 Start: 02-08-2022 take 1000 ug by mouth once daily Cyanocobalamin (Vitamin B-12) Active 1000 MCG PO DAILY February 07, 2022 11:00pm Vitamin B12 1000 mcg oral tablet (16 sources) Start: 02-08-2022 Vitamin B12 1000 mcg oral tablet Dose : 1,000 mcg = 1 tab(s), Oral, qDay, # 30 tab(s), 0 Refill(s) Start Date: 02/08/22 Status: Ordered Medication Dispense Status: Completed Quantity: 30.0 Unit: tab(s) Total Allowed Fills: 1 Fills Dispensed: 0 Start: 02-08-2022 Vitamin B12 10 00 mcg oral tablet Dose : 1,000 mcg = 1 tab(s), Oral, qDay, # 30 tab(s), 0 Refill(s) Start Date: 02/08/22 Status: Ordered Quantity: 30.0 Unit: tab(s) Repeat number: 1 Start: 02-08-2022 Vitamin B12 10 00 mcg oral tablet Dose : 1,000 mcg = 1 tab(s), Oral, qDay, # 30 tab(s), 0 Refill(s) Start Date: 02/08/22 Status: Ordered Vitamin D3 (14 sources) Start: 02-08-2022 Vitamin D3 Dos e : 1,000 unit(s) = 1 tab(s), Oral, Daily, 0 Refill(s) Start Date: 02/08/22 Status: Ordered Repeat number: 1 Start: 02-08-2022 Vitamin D3 Dos e : 1,000 unit(s) = 1 tab(s), Oral, Daily, 0 Refill(s) Start Date: 02/08/22 Status: Ordered Vitamin D3 125 mcg (5000 int l units) oral capsule (2 sources) Start: 05-11-2025 Vitamin D3 125 mcg (5000 intl units) oral capsule Dose : 125 mcg = 1 cap(s), Oral, qDay, # 100 cap(s), 0 Refill(s) Start Date: 05/11/25 Status: Ordered Medication Dispense Status: Completed Quantity: 100.0 Unit: cap(s) Total Allowed Fills: 1 Fills Dispensed: 0 Completed/Discontinued Medications Medication Drug Class(es) Dates Sig (Normalized) Sig (Original) amiodarone hydrochloride 200 mg oral tablet (20 sources) Antiarrhythmic Start: 02-16-2016 End: 02-22-2018 take 1 tablet by mouth once daily AMIODARONE HCL 200 MG TABS One tablet by mouth daily AMIODARONE HCL [id number] Augusto Carter MD Start: 02-16-2016 End: 03-08-2016 take 1 tablet by mouth twice daily Amiodarone (Pacerone) 400 MG tablet Discontinued 400 MG PO TWICE A DAY February 15, 2016 11:00pm March 08, 2016 8:11am aspirin 81 mg chewable tablet (1 source) Platelet Aggregation Inhibitor, Nonsteroidal Anti-inflammatory Drug Start: 02-16-2016 End: 03-08-2016 take 81 mg by mouth once daily Aspirin Discontinued 81 MG PO DAILY@0800 February 15, 2016 11:00pm March 08, 2016 8:11am Tac37-Mot E 100 mg-10 Unit Sfg (1 source) Start: 07-10-2017 End: 02-22-2018 take 1 tablet by mouth every other day [id number] E 100 mg-10 Unit Sfg Discontinued 1 TABLET PO EVERY OTHER DAY July 09, 2017 11:00pm February 22, 2018 10:08am 1 ml denosumab 60 mg/ml prefilled syringe (17 sources) RANK Ligand Inhibitor Start: 02-24-2025 Prolia 60 mg/mL subcutaneous solution Dose : 60 mg = 1 mL, Subcutaneous, q6mo, Unable to tolerate Fosamax, # 1 mL, 1 Refill(s), Osteoporosis Start Date: 02/24/25 Status: Ordered Medication Dispense Status: Completed Quantity: 1.0 Unit: mL Total Allowed Fills: 2 Fills Dispensed: 0 Indications: Age-related osteoporosis without current pathological fracture; Start: 09-08-2024 Prolia 60 mg/m L subcutaneous solution Dose : 60 mg = 1 mL, Subcutaneous, q6mo, Unable to tolerate Fosamax, # 1 mL, 1 Refill(s), Osteoporosis Start Date: 09/08/24 Status: Ordered Start: 03-10-2024 Prolia 60 mg/m L subcutaneous solution Dose : 60 mg = 1 mL, Subcutaneous, q6mo, Unable to tolerate Fosamax, # 1 mL, 1 Refill(s), Osteoporosis Start Date: 03/10/24 Status: Ordered Start: 05-02-2023 Prolia 60 mg/m L subcutaneous solution Dose : 60 mg = 1 mL, Subcutaneous, q6mo, Unable to tolerate Fosamax, # 1 mL, 1 Refill(s), Osteoporosis Start Date: 09/03/23 Status: Ordered Start: 08-23-2022 Prolia 60 mg/m L subcutaneous solution Dose : 60 mg = 1 mL, Subcutaneous, q6mo, Unable to tolerate Fosamax, # 1 mL, 1 Refill(s), Osteoporosis Start Date: 08/23/22 Status: Ordered docusate sodium 50 mg / sennosides, care home 8.6 mg oral tablet (20 sources) Start: 03-19-2016 End: 03-23-2016 take 2 tablets by mouth once daily as needed, then take 8.6-50 tablets by mouth as needed SENOKOT S 8.6-50 MG TABS 2 tablets by mouth daily, as needed SENNOSIDES-DOCUSATE SODIUM [id number] Augusto Carter MD Start: 03-19-2016 End: 03-23-2016 take 2 tablets by mouth once daily as needed, then take 8.6-50 tablets by mouth as needed SENOKOT S 8.6-50 MG TABS 2 tablets by mouth daily, as needed SENNOSIDES-DOCUSATE SODIUM [id number] Augusto Carter MD Start: 03-19-2016 take 2 tablets by [facility] once daily as needed, then take 8.6-50 tablets by mouth as needed SENOKOT S 8.6-50 MG TABS 2 tablets by mouth daily, as needed SENNOSIDES-DOCUSATE SODIUM [id number] Kaela Sam RN Start: 03-19-2016 take 2 tablets by mo uth once daily as needed, then take 8.6-50 tablets by mouth as needed SENOKOT S 8.6-50 MG TABS 2 tablets by mouth daily, as needed SENNOSIDES-DOCUSATE SODIUM [id number] Kaela Sam RN Start: 03-19-2016 End: 03-23-2016 take 2 tablets by mouth once daily as needed, then take 8.6-50 tablets by mouth as needed SENOKOT S 8.6-50 MG TABS 2 tablets by mouth daily, as needed SENNOSIDES-DOCUSATE SODIUM [id number] Augusto Carter MD Start: 03-08-2016 End: 02-22-2018 take 2 tablets by mouth once daily Sennosides-Docusate Sodium Discontinued 2 TABLET PO DAILY 0 March 07, 2016 11:00pm February 22, 2018 10:08am fluticasone propionate 0.05 mg/actuat metered dose nasal spray (15 sources) Corticosteroid Start: 10-20-2018 End: 05-28-2019 Fluticasone Propionate (Allergy Relief (Fluticasone)) 50 mcg/actuation spray,suspension Discontinued 1 SPRAY INTRANASAL DAILY October 20, 2018 12:00am May 28, 2019 2:27pm Start: 03-19-2016 FLONASE 50 MCG /ACT SUSP Take as directed FLUTICASONE PROPIONATE [id number] Kaela Sam RN Start: 03-19-2016 FLONASE 50 MCG /ACT SUSP Take as directed FLUTICASONE PROPIONATE [id number] Kaela Sam RN Start: 03-08-2016 End: 02-24-2018 Fluticasone Propionate Disco ntinued 1 SPRAY NASAL TWICE A DAY March 07, 2016 11:00pm February 24, 2018 10:12am loratadine 10 mg oral tablet (1 source) Start: 10-20-2018 End: 05-28-2019 take 1 tablet by mouth once daily Loratadine (Claritin) 10 mg tablet Discontinued 10 MG PO DAILY October 20, 2018 12:00am May 28, 2019 2:27pm LUTEIN TABS (16 sources) Start: 03-23-2016 take 1 tablet by mouth once daily LUTEIN TABS One tablet by mouth daily LUTEIN TABS [id number] Augusto Carter MD Start: 03-23-2016 End: 08-05-2017 take 1 tablet by mouth once daily LUTEIN TABS One tablet by mouth daily LUTEIN TABS [id number] Augusto Carter MD Start: 03-23-2016 End: 08-05-2017 take 1 tablet by mouth once daily LUTEIN TABS One tablet by mouth daily LUTEIN TABS [id number] Augusto Carter MD Start: 03-23-2016 take 1 tablet by chandan th once daily LUTEIN TABS One tablet by mouth daily LUTEIN TABS [id number] Augusto Carter MD meclizine hydrochloride 12.5 mg oral tablet (15 sources) Antiemetic Start: 02-22-2018 End: 02-24-2018 take 12.5 mg by mouth three times daily Meclizine Discontinued 12.5 MG PO THREE TIMES A DAY February 22, 2018 10:06am February 24, 2018 10:11am Start: 07-10-2017 End: 02-22-2018 take 12.5 mg by mouth once daily as needed Meclizine Discontinued 12.5 MG PO DAILY NEEDED July 09, 2017 11:00pm February 22, 2018 10:08am Start: 10-15-2016 take 1 tablet by chnadan th three times daily as needed for dizziness MECLIZINE HCL 12.5 MG TABS One tablet by mouth three times daily as needed for dizziness MECLIZINE HCL [id number] Augusto Carter MD [facility] [employer] (5 sources) take 2 tablets by mouth once daily JOINT SUPPORT COMPLEX CAPS Two tablets by mouth daily [facility] [employer] [id number] Jaylyn Vázquez Alam MISC [employer] (8 sources) take 2 tablets by mouth once daily JOINT SUPPORT COMPLEX CAPS Two tablets by mouth daily [facility] [employer] [id number] Jaylyn Vázquez Alaciro MULTIPLE VITAMIN (5 sources) take 1 tablet by mouth once daily MULTIVITAMINS TABS One tablet by mouth daily MULTIPLE VITAMIN [id number] Daylin Sloan LPN MULTIPLE VITAMIN (8 sources) take 1 tablet by mouth once daily MULTIVITAMINS TABS One tablet by mouth daily MULTIPLE VITAMIN [id number] Daylin Sloan LPN Multivitamin preparation (1 source) Start: 6 End: 8 Multivitamin Discontinued 1 EACH PO DAILY February 15, 2016 11:00pm February 24, 2018 10:11am nystatin [id number] unt/ml topical cream (6 sources) Polyene Antifungal Start: 4 End: 5 nystatin 100,000 units/g topical cream Apply 1 ruby, Topical, BID, PRN Rash, Apply to the affected area twice daily until healing complete., # 30 gram(s), 1 Refill(s), [id number], Cream, 161, cm, 10/06/24 13:12:00 EST, Height, 79.1, kg, 10/06/24 12:59:00 EST, Dosing Weight Start Date: 10/06/24 Stop Date: 12/05/24 Status: Ordered Medication Dispense Status: Completed Quantity: 30.0 Unit: g Total Allowed Fills: 2 Fills Dispensed: 0 OMEGA-3 FATTY ACIDS (7 sources) take 1 tablet by mouth once daily FISH OIL 1000 MG CAPS One tablet by mouth daily OMEGA-3 FATTY ACIDS [id number] Daylin Sloan PODIATRY ASSISTANT [place]-3 Fatty Acids-Fish Oil (1 source) Start: 7 End: 1 take 1 tablet by mouth once daily Carlton-3 Fatty Acids-Fish Oil Discontinued 1 TABLET PO DAILY July 09, 2017 11:00pm January 12, 2021 2:01pm pantoprazole 40 mg delayed release oral tablet (1 source) Proton Pump Inhibitor Start: 6 End: 6 take 40 mg by mouth once daily Pantoprazole Discontinued 40 MG PO DAILY February 15, 2016 11:00pm March 08, 2016 8:10am Problems Active Problems Problem Classification Problem Date Documented Da te Episodic/Chronic Acute cerebrovascular disease (20 sources) Cerebrovascular accident; Translations: [Ischemic stroke] Onset: 02-08-2016 02-26-2018 Chronic Anxiety disorders (18 sources) Anxiety 03-20-2018 Chronic Comment on above: no meds Blindness and vision defects (18 sources) Peripheral visual field defect 03-20-2018 Episodic Cancer of breast (14 sources) Carcinoma of breast ; Translations: [Malignant neoplasm of female breast] 02-19-2013 Chronic Cancer of breast (20 sources) History of malignant neoplasm of breast; Translations: [Personal history of malignant neoplasm of breast] Onset: 05-08-2016 05-08-2016 Episodic Cardiac dysrhythmias (20 sources) Paroxysmal atrial fibrillation; Translations: [Unspecified atrial fibrillation] Onset: 03-19-2016 03-19-2016 Chronic Cardiac dysrhythmias (2 sources) Palpitations; Translations: [Palpitations] Onset: 04-12-2018 Episodic Cataract (18 sources) Cataract 02-26-2018 Chronic Chronic kidney disease (4 sources) Chronic kidney disease stage 2 02-26-2025 Chronic Conditions associated with dizziness or vertigo (18 sources) Dizziness 04-07-2021 Episodic Comment on above: inner ear related Disorders of lipid metabolism (20 sources) Hyperlipidemia; Translations: [Hyperlipidemia, unspecified] Onset: 04-06-2016 04-06-2016 Chronic E Codes: Fall (4 sources) Fall; Translations: [Unspecified fall, initial encounter] Onset: 09-30-2024 09-30-2024 Episodic Epilepsy; convulsions (17 sources) Seizure disorder; Translations: [Seizure] 08-23-2022 Episodic Essential hypertension (20 sources) Essential (primary) hypertension; Translations: [Hypertensive disorder] Onset: 04-12-2018 02-26-2018 Chronic Fluid and electrolyte disorders (1 source) Low blood pressure; Translations: [Hypovolemia] 09-16-2021 Episodic Genitourinary symptoms and ill-defined conditions (18 sources) Genuine stress incontinence 03-20-2018 Chronic Glaucoma (18 sources) Glaucoma 06-12-2019 Chronic Headache, including migraine (2 sources) Headache; Translations: [Headache] Onset: 04-12-2018 Episodic Headache; including migraine (2 sources) Headache; including migraine; Translations: [Headache, unspecified] Onset: 10-06-2024 Late effects of cerebrovascular disease (15 sources) Unspecified sequelae of cerebral infarction; Translations: [Hemiplegia and hemiparesis following cerebral infarction affecting left non-dominant side] Onset: 03-19-2016 03-19-2016 Chronic Mood disorders (18 sources) Depressive disorder 03-20-2018 Chronic Comment on above: no meds Nausea and vomiting (1 source) Nausea, vomiting and diarrhea; Translations: [Nausea with vomiting, unspecified] 09-16-2021 Episodic Neoplasms of unspecified nature or uncertain behavior (1 source) Gammopathy; 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] 07-09-2018 Chronic Nutritional deficiencies (16 sources) Vitamin D deficiency 02-08-2022 Chronic Osteoarthritis (18 sources) Arthritis 02-26-2018 Chronic Osteoporosis (16 sources) Osteoporosis 02-08-2022 Chronic Other aftercare (7 sources) Other alf (current) drug therapy; Translations: [halfway (current) use of anticoagulants] Onset: 04-06-2016 04-06-2016 Episodic Other and ill-defined cerebrovascular disease (1 source) Cerebrovascular disease; Translations: [Cerebrovascular disease, unspecified] 07-09-2018 Chronic Other circulatory disease (13 sources) History of cerebrovascular accident 02-26-2023 Episodic Other connective tissue disease (18 sources) Muscle weakness 03-20-2018 Episodic Comment on above: left sided Other connective tissue disease (2 sources) Pain of left lower leg 05-11-2025 Episodic Other connective tissue disease (1 source) Repeated falls; Translations: [Repeated falls] Onset: 09-15-2025 Episodic Other ear and sense organ disorders (18 sources) Hearing loss 02-26-2018 Chronic Other ear and sense organ disorders (20 sources) Sensorineural hearing loss, bilateral 10-06-2018 Chronic Other ear and sense organ disorders (20 sources) Does use hearing aid 09-25-2023 Episodic Other fractures (7 sources) Fracture of rib 08-07-2024 Episodic Other gastrointestinal disorders (2 sources) Diarrhea, unspecified; Translations: [Diarrhea, unspecified] Onset: 06-15-2025 Episodic Other hematologic conditions (1 source) Macrocytosis; Translations: [Other specified diseases of blood and blood-forming organs] 07-09-2018 Chronic Other injuries and conditions due to external causes (2 sources) Closed injury of head; Translations: [Unspecified injury of head, initial encounter] 09-30-2024 Episodic Other injuries and conditions due to external causes (2 sources) Unspecified injury of head, initial encounter; Translations: [Unspecified injury of head, initial encounter] Onset: 09-30-2024 Episodic Other lower respiratory disease (14 sources) Snoring; Translations: [Snoring] Onset: 03-19-2016 03-19-2016 Episodic Other nutritional; endocrine; and metabolic disorders (18 sources) Obesity 06-17-2019 Chronic Other nutritional; endocrine; and metabolic disorders (16 sources) Body mass index 30+ - obesity 08-23-2022 Chronic Other nutritional; endocrine; and metabolic disorders (1 source) Obese class I; Translations: [Obesity, unspecified] 07-09-2018 Chronic Other upper respiratory disease (18 sources) Seasonal allergy 04-07-2021 Chronic Other upper respiratory disease (7 sources) Bleeding from nose 08-07-2024 Episodic Paralysis (1 source) Left hemiparesis; Translations: [Hemiplegia, unspecified affecting left nondominant side] 07-09-2018 Chronic Residual codes; unclassified (18 sources) Family history of osteopenia 02-26-2018 Episodic Residual codes; unclassified (18 sources) Needs influenza immunization 10-05-2020 Episodic Residual codes; unclassified (1 source) History of right mastectomy; Translations: [Acquired absence of right breast and nipple] 07-09-2018 Episodic Residual codes; unclassified (1 source) History of colonoscopy; Translations: [Other specified postprocedural states] 07-09-2018 Episodic Residual codes; unclassified (6 sources) Peripheral edema 10-06-2024 Episodic Retinal detachments; defects; vascular occlusion; and retinopathy (19 sources) Age related macular degeneration; Translations: [Degenerative disorder of macula ] 10-06-2018 Chronic Spondylosis; intervertebral disc disorders; other back problems (20 sources) Lumbar radiculopathy; Translations: [Sciatica] Onset: 07-24-2016 07-24-2016 Episodic Unclassified (13 sources) Obstructive sleep apnea syndrome; Translations: [Obstructive sleep apnea (adult) (pediatric)] Onset: 03-19-2016 03-19-2016 Chronic Unclassified (1 source) Unknown / UNK(Unknown) Onset: 05-16-2017 Unclassified (8 sources) Long-term drug therapy; Translations: [Other long term care administrator (current) drug therapy] Onset: 04-06-2016 04-06-2016 Unclassified (18 sources) Eye glasses, device (physical object) 02-26-2018 Unclassified (18 sources) Hearing aid, device (physical object) 02-26-2018 Comment on above: BILATERAL Unclassified (20 sources) Patient encounter status 10-05-2020 Unclassified (16 sources) Never used tobacco 08-23-2022 Unclassified (16 sources) Vaccination needed 08-23-2022 Past or Other Problems Problem Classification Problem Date Documented Da te Episodic/Chronic Genitourinary symptoms and ill-defined conditions (1 source) Dysuria; Translations: [Dysuria] Onset: 12-08-2024 Episodic Nonspecific chest pain (20 sources) Chest [...] of pelvic region] Onset: 08-27-2016 08-27-2016 Episodic Residual codes; unclassified (2 sources) Localized edema; Translations: [Localized edema] Onset: 10-06-2024 Episodic Syncope (14 sources) Syncope and collapse; Translations: [Vasovagal syncope] Onset: 09-30-2024 08-07-2024 Episodic Unclassified (13 sources) Family history of malignant neoplasm of breast; Translations: [Family history of malignant neoplasm of breast] 06-28-2015 Episodic Unclassified (1 source) LEFT ANKLE SWELLING Onset: 05-16-2017 Urinary tract infections (2 sources) Urinary tract infection, site not specified; Translations: [Urinary tract infection, site not specified] Onset: 10-07-2024 Episodic Results Test Name Value Interpretation Reference Range Facility Culture, Blood (WB)on 2024 CUB Blood cultures x2, f rom two different sites No growth in 5 days. Normal [facility] Comment on above: Performed By: #### M 100.636, M200.1000 #### [facility] [place], [address] Culture, Blood (WB)on 2024 CUB Blood cultures x2, f rom two different sites Aerobic Bottle has Gram Positive Cocci in Clusters. Culture, Blood (WB) RESULTS CALLED TO RUPA Ruiz AND SENT TO NURSES STATION ED-RT03 09/06/25 1865 Brenda Lang. REPORT READ BACK. STAPHYLOCOCCUS AUREUS NOT ISOLATED FROM THIS SAMPLE. Culture, Blood (WB) Clinical correlation necessary, Possible skin contamination. Staphylococcus epidermidis Amount Growth Growth Staphylococcus epidermidis: REACTION cefOXitin Susc Islt Doxycycline Islt BENEDICT 8 I Clindamycin Islt BENEDICT <=0.12 S Clindamycin.induced Susc Islt NEG Erythromycin Islt BENEDICT >=8 R Gentamicin Islt BENEDICT <=0.5 S Linezolid Islt BENEDICT 1 S Oxacillin Susc Islt >=4 R Tetracycline Islt BENEDICT >=16 R TMP SMX Islt BENEDICT <=10 S Vancomycin Islt BENEDICT 2 S [facility] Comment on above: Performed By: #### M 100.636, M200.1000 #### [facility] [address] [place], [place], [address] BC GPC IDon 09-06-2025 BC GPC ID Copy of report sent to Infection Control Printer [id number] 09/06/25 [id number] LEONARDO. Microorganism Spec Cult RESULTS CALLED TO LABORATORY MACHINISTRUPA DEGROOT AND SENT TO ED PRT-03 09/06/25 5736 Brenda Lang. REPORT READ BACK. Microorganism Spec Cult REPORT AMMENDED 09/08/25. Enterococcus sp. Not Detected Listeria spp Not Detected NAAT METHOD Testing was performed using nucleic acid amplification Staphylococcus sp. A DETECTED A Streptococcus spp. Not Detected mecA A mecA Resistance Marker Detected A Rajan/vanB Not Detected Staphylococcus epidermidis mecA A mecA Resistance Marker Detected A * This is an amended result. * A prior result that was reported as final has been changed. 09/08/25 1259 by [facility] Comment on above: Performed By: #### M 100.636, M200.1000 #### [facility] [address] [place], [place], [id number] 12 Lead EKGon 09-05-2025 12 Lead EKG [facility] [address] [place] [address] 12 Lead EKG 09/05/25 1116 MR#: [id number] Acct: [id number] Name: HENRY DEGROOT Rep #: [id number] : 1940 85 From: Jhon Guan MD Attending Dr: Status: DEP ER Ordering Dr: Nicci Pineda MD Date: 09/05/25 Location: ED Sex: F C Admitted: Test Reason : FALLS Blood Pressure : */* mmHG Vent. Rate : 79 BPM Atrial Rate : 79 BPM P-R Int : 196 ms QRS Dur : 70 ms QT Int : 402 ms P-R-T Axes : 43 32 31 degrees QTcB Int : 460 ms Normal sinus rhythm Low voltage QRS Borderline ECG Confirmed by Jhon Guan ([id number]), pictures editor CAS CONTRERAS ([id number]) on 09/06/2025 1:13:27 PM Referred By: Confirmed By: Jhon Guan 09/06/25 1313 Date Jhon Guan MD CC: Dr. Nicci Pineda MD; Dr. Иван Lopez, Signed [facility] Brain/Head without Contrasto n 09-05-2025 Brain/Head without Contrast [facility] Imaging Services [address] [place] [address] Brain/Head without Contrast MR#: [id number] Acct: [id number] Name: HENRY DEGROOT Rep #: [id number] : 1940 F 85 From: Ricardo Jessica MD PCP: Dr. Иван Lopez DO Status: REG ER Study: Brain/Head without Contrast Date of Exam: 12/29 Exam# [id number] Ordering Dr: Nicci Pineda MD EXAM: BRAIN/HEAD WITHOUT CONTRAST CLINICAL HISTORY: 85 y/o F with FALL, HIT HEAD, ON ELIQUIS. COMPARISON: None. TECHNIQUE: Routine CT imaging of the head without IV contrast. Additional multiplanar reformats were obtained. Dose reduction techniques were used including intermediate exposure control (AEC),iterative reconstruction technique, and/or mA and/or KV dose adjustments based on patient's size. FINDINGS: Chronic changes including old right MCA territory infarct. The ventricles, sulci and cisterns are mildly prominent, suggestive of brain parenchymal volume loss. There is no evidence of intracranial hemorrhage. There is no midline shift, mass effect, or extra-axial collection. The banegas and white matter differentiation in the bilateral cerebral hemispheres is maintained, refuting an acute, large territorial infarct. There are [id number], diffuse, symmetrical, periventricular and subcortical white matter lucencies, a nonspecific finding, which may represent sequela of small vessel disease in a patient of this age. The orbits, visualized paranasal sinuses and mastoids are unremarkable. No depressed skull fractures are identified. CT/Brain/Head without Contrast IMPRESSION: No intracranial hemorrhage or large territorial infarct. Microangiopathic disease hinders exclusion of a small acute infarct; CTP (CT Perfusion scan) or MRI with diffusion weighted imaging would provide further detail of the parenchyma should additional information be required. Reading Location: [facility] CC: Dr. Nicci Pineda MD; Dr. Иван Lopez DO Installer [employer] Trim: Signed Normal [facility] CBC W/Diff, Automatedon 11-0 Absolute Lymph 0.62 X10 3/uL Low 0.83-4.51 [facility] Comment on above: Performed By: #### L 503.6005, L100.0100, L500.4050 #### [facility] [address] [place], [address] Absolute Neut 7.0 X10 3/uL Normal 2.0-7.7 [facility] Comment on above: Performed By: #### L 503.6005, L100.0100, L500.4050 #### [facility] [address] [place], [address] Basophils/100 WBC (Bld) 0.2 % Normal 0-1 [facility] Comment on above: Performed By: #### L 503.6005, L100.0100, L500.4050 #### [facility] [address] [place], [address] Eosinophils/100 WBC (Bld) 0.0 % Normal 0-5 [facility] Comment on above: Performed By: #### L 503.6005, L100.0100, L500.4050 #### [facility] [address] [place], [address] Erythrocyte distribution width (RBC) [Ratio] 12.3 % Normal 11.6-14.6 [facility] Comment on above: Performed By: #### L 503.6005, L100.0100, L500.4050 #### [facility] [address] [place], [address] Hematocrit (Bld) [Volume fraction] 36.7 % Low 37-47 [facility] Comment on above: Performed By: #### L 503.6005, L100.0100, L500.4050 #### [facility] [address] [place], [address] Hemoglobin (Bld) [Mass/Vol] 12.3 g/dL Normal 12.0-15.0 [facility] Comment on above: Performed By: #### L 503.6005, L100.0100, L500.4050 #### [facility] [address] [place], [address] IG% 0.500 Normal 0.0-0.9 [facility] Comment on above: Result Comment: IG% - Immature Granulocytes (promyelocytes, myelocytes and metamyelocytes) > 1% indicates that a LEFT SHIFT is Present. Performed By: #### L 503.6005, L100.0100, L500.4050 #### [facility] [address] [place], [address] Lymphocytes/100 WBC (Bld) 7.7 % Low 19-41 [facility] Comment on above: Performed By: #### L 503.6005, L100.0100, L500.4050 #### [facility] [address] [place], [address] MCH (RBC) [Entitic mass] 32.0 pg Normal 27.0-32.0 [facility] Comment on above: Performed By: #### L 503.6005, L100.0100, L500.4050 #### [facility] [address] [place], [address] MCHC (RBC) [Mass/Vol] 33.5 g/dL Normal 32-36 [facility] Comment on above: Performed By: #### L 503.6005, L100.0100, L500.4050 #### [facility] [address] [place], [address] MCV (RBC) [Entitic vol] 95.6 fL Normal 81-99 [facility] Comment on above: Performed By: #### L 503.6005, L100.0100, L500.4050 #### [facility] [address] [place], [address] Monocytes/100 WBC (Bld) 4.7 % Normal 0-10 [facility] Comment on above: Performed By: #### L 503.6005, L100.0100, L500.4050 #### [facility] [address] [place], [address] Neutrophils/100 WBC (Bld) 86.9 % High 47-70 [facility] Comment on above: Performed By: #### L 503.6005, L100.0100, L500.4050 #### [facility] [address] [place], [address] Nucleated RBC (Bld) [#/Vol] 0 10*3/uL Normal 0-5 [facility] Comment on above: Performed By: #### L 503.6005, L100.0100, L500.4050 #### [facility] [address] [place], [address] Platelet mean volume (Bld) [Entitic vol] 11.0 fL Normal 6.2-12.0 [facility] Comment on above: Performed By: #### L 503.6005, L100.0100, L500.4050 #### [facility] [address] [place], [address] Platelets (Bld) [#/Vol] 240 10*3/uL Normal 150-450 [facility] Comment on above: Performed By: #### L 503.6005, L100.0100, L500.4050 #### [facility] [address] [place], [address] RBC (Bld) [#/Vol] 3.84 10*6/uL Low 4.2-5.4 [place] Comment on above: Performed By: #### L 503.6005, L100.0100, L500.4050 #### [facility] [address] [place], [address] RDW SD 42.6 fl Normal 35.1-43.9 [facility] Comment on above: Performed By: #### L 503.6005, L100.0100, L500.4050 #### [facility] [address] [place], [address] WBC (Bld) [#/Vol] 8.0 10*3/uL Normal 4.4-11.0 [facility] Comment on above: Performed By: #### L 503.6005, L100.0100, L500.4050 #### [facility] [address] [place], [place], [address] CT Chest, Abd, Pel w/Contras ton 09-05-2025 CT Chest, Abd, Pel w/Contrast [facility] Imaging Services [address] [place] [address] CT Chest, Abd, Pel w/Contrast MR#: [id number] Acct: [id number] Name: HENRY DEGROOT Rep #: [id number] : 1940 F 85 From: Shilo Reed DO PCP: Dr. Иван Lopez DO Status: [facility] ER Study: CT Chest, Abd, Pel w/Contrast Date of Exam: Exam# [id number] Ordering Dr: Nicci Pineda MD PROCEDURE: CT CHEST, ABD, PEL W/CONTRAST 09/05/2025 REASON FOR EXAM: MULTIPLE FALLS ON ELIQUIS, HYPOTENSIVE TECHNIQUE: Chest, abdomen and pelvis CT with intravenous contrast. Coronal and Sagittal reconstruction series were provided. One or more dose reduction techniques were used (e.g., Automated exposure control, adjustment of the mA and/or kV according to patient size, use of iterative reconstruction technique. PATIENT PREPARATION: Per protocol ORAL CONTRAST TYPE: None. CONTRAST: Isovue 370 VOLUME: 97mL RADIATION DOSE SUMMARY: DLP: 2693.7 mGycm COMPARISON: None. FINDINGS: CT CHEST: No central pulmonary embolus. Normal heart size. Mild coronary artery calcifications. No pericardial effusion. Trace plaque of the thoracic aorta without aneurysm or dissection. Vascular congestion. Mild biapical lung scarring. No suspicious nodules. Microatelectasis in the dependent lungs. No contusion. No pleural effusion or pneumothorax. Right mastectomy. No chest wall mass or fluid collection. Remote left 9th through 12th rib fractures. No acute fractures are seen. No osseous metastatic disease. CT ABDOMEN/PELVIS: 3 cm peripheral right hepatic lobe cyst. Liver is otherwise unremarkable. Tiny gallstones. No biliary dilatation. Diffuse pancreatic parenchymal atrophy. 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 Normal spleen. Normal adrenal glands. A few small renal cysts bilaterally. Kidneys are otherwise unremarkable. No urolithiasis. Decompressed and thick-walled urinary bladder containing a tiny focus of gas. Cystitis is possible. Prominence of the fundal endometrium, thickness 7 mm, nonspecific. No adnexal mass. No bowel obstruction. Decompressed thick-walled midsigmoid colon. Between the midsigmoid and urinary bladder dome is a prominent 2.5 cm air-filled collection or diverticulum. Changes are likely related to prior diverticulitis with possible developed colovesical fistula. Mild plaque of the abdominal aorta without aneurysm. Lumbar spine facet arthropathy. No fracture or osseous metastatic disease. CT/CT Chest, Abd, Pel w/Contrast IMPRESSION: 1. No acute traumatic findings in the chest, abdomen, or pelvis. 2. Decompressed thick-walled proximal and mid sigmoid colon, possibly related to subacute diverticulitis. Superimposed stricture or neoplasm not excluded and should be further assessed with endoscopy. No colonic obstruction. 3. Gas-filled collection versus diverticulum between the midsigmoid colon and urinary bladder dome suspicious for colovesical fistula. There is associated cystitis and 1 focus of gas in the urinary bladder lumen. 4. 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 Follow-up abdominal MRI with MRCP recommended in 3-6 months. 5. No retroperitoneal hematoma or other evidence of occult bleeding. Chronic left rib fractures. Reading Location: [facility] CC: Dr. Nicci Pineda MD; Dr. Иван Lopez DO [employer]: Signed Normal [facility] Comprehensive Metabolic Prof ilon 09-05-2025 Albumin [Mass/Vol] 3.1 g/dL Low 3.4-4.8 [facility] Comment on above: Performed By: #### L 503.6005, L100.0100, L500.4050 #### [facility] Laboratory [address] [place], [place], [id number] Albumin/Globulin [Mass ratio] 1.0 {ratio} Normal 0.9-2.4 [facility] Comment on above: Performed By: #### L 503.6005, L100.0100, L500.4050 #### [facility] [address] [place], [address] ALK PHOS 50 U/L Normal 35-104 [facility] Comment on above: Performed By: #### L 503.6005, L100.0100, L500.4050 #### [facility] [address] [place], [address] ALT [Catalytic activity/Vol] 14 U/L Normal <=34 [facility] Comment on above: Performed By: #### L 503.6005, L100.0100, L500.4050 #### [facility] [address] [place], [address] AST [Catalytic activity/Vol] 21 U/L Normal <=31 [facility] Comment on above: Performed By: #### L 503.6005, L100.0100, L500.4050 #### [facility] [address] [place], [address] Bilirubin [Mass/Vol] 0.74 mg/dL Normal 0.00-1.30 [facility] Comment on above: Performed By: #### L 503.6005, L100.0100, L500.4050 #### [facility] [address] [place], [address] BUN/CRE 20.4 RATIO High 10-20 [facility] Comment on above: Performed By: #### L 503.6005, L100.0100, L500.4050 #### [facility] [address] [place], [address] Calcium [Mass/Vol] 9.0 mg/dL Normal 7.6-11.0 [facility] Comment on above: Performed By: #### L 503.6005, L100.0100, L500.4050 #### [facility] [address] [place], [address] Chloride [Moles/Vol] 101 mmol/L Normal 98-108 [facility] Comment on above: Performed By: #### L 503.6005, L100.0100, L500.4050 #### [facility] [address] [place], [address] CO2 [Moles/Vol] 26.6 mmol/L Normal 21.0-32.0 [facility] Comment on above: Performed By: #### L 503.6005, L100.0100, L500.4050 #### [facility] [address] [place], [address] Creatinine [Mass/Vol] 0.95 mg/dL Normal 0.70-1.20 [facility] Comment on above: Performed By: #### L 503.6005, L100.0100, L500.4050 #### [facility] [address] [place], [address] ECRCL 42.48 ml/min Low 50-250 [facility] Comment on above: Performed By: #### L 503.6005, L100.0100, L500.4050 #### [facility] [address] [place], [address] GAP 9 Normal 5-15 [facility] Comment on above: Performed By: #### L 503.6005, L100.0100, L500.4050 #### [facility] [address] [place], [address] GFR/1.73 sq M.predicted among non-blacks MDRD (S/P/Bld) [Vol rate/Area] 59 mL/min/{1.73_m2} Low >60 [facility] Comment on above: Result Comment: mL/m in/1.73m2 CKD-EPI Creatinine Equation (2020) Performed By: #### L 503.6005, L100.0100, L500.4050 #### [facility] [address] [place], [address] Globulin (S) [Mass/Vol] 3.0 g/dL Normal 2.2-4.2 [facility] Comment on above: Performed By: #### L 503.6005, L100.0100, L500.4050 #### [facility] [address] [place], [address] Glucose [Mass/Vol] 136 mg/dL High 70-99 [facility] Comment on above: Performed By: #### L 503.6005, L100.0100, L500.4050 #### [facility] [address] [place], [address] Potassium [Moles/Vol] 3.8 mmol/L Normal 3.3-5.1 [facility] Comment on above: Performed By: #### L 503.6005, L100.0100, L500.4050 #### [facility] [address] [place], [address] Sodium [Moles/Vol] 137 mmol/L Normal 133-145 [facility] Comment on above: Performed By: #### L 503.6005, L100.0100, L500.4050 #### [facility] [address] [place], [address] T PROT 6.2 g/dL Normal 5.9-8.4 [facility] Comment on above: Performed By: #### L 503.6005, L100.0100, L500.4050 #### [facility] [address] [place], [address] Urea nitrogen [Mass/Vol] 19 mg/dL Normal 4-19 [facility] Comment on above: Performed By: #### L 503.6005, L100.0100, L500.4050 #### [facility] [address] [place], [address] Emergency Department Summary on 09-05-2025 Emergency Department Summary [facility] Medical Records Department [address] [place] [address] Emergency Department Summary 09/05/25 MR#: [id number] Acct: [id number] Name: HENRY DEGROOT Rep #: [id number] : 1940 85 From: Nicci Pineda MD PCP: Dr. Иван Lopez, DO Status:DEP ER Location: ED HPI HPI - Fall History of Present Illness Chief Complaint: Fall Narrative Narrative: Patient is a 85-year-old female presenting to the emergency department for frequent unwitnessed falls at home. Patient has fallen 3 times since Saturday. Patient is a poor historian. She has a past medical history of paroxysmal A-fib on Eliquis, seizures, debility, stroke, breast cancer with right sided mastectomy. Patient lives at home with daughter. Daughter states that she had strong smelling urine last week and actually had a urine sample done this morning. States that she also had multiple episodes of diarrhea last week. On Saturday she said that she was moving a blanket from behind her was sitting on the couch when she slipped forward causing her to fall on her buttocks. She states that another fall was when she slipped on a bath mat while grabbing a towel. She does not think she hit her head. Daughters noticed a bump on the back of her head and decided to have her evaluated in the emergency department. Patient denies any symptoms or pain at time of evaluation. Denies chest pain, shortness of breath, abdominal pain, nausea, vomiting. She denies any pain in her neck or back. Denies any headache. Denies any arm, leg or hip pain. She has been able to walk since. [facility] Medical History Atrial fibrillation Seizures History of fall Wears hearing aid Wears glasses Cancer Depression Walker as ambulation aid Arthritis UTI (urinary tract infection) Loss of consciousness Difficulty swallowing Blood in stool History of diverticulitis Non-smoker CPAP (continuous positive airway pressure) dependence Leg cramps History of pain when walking History of edema Hypertension History of echocardiogram Cardiology follow-up encounter Seizure Paroxysmal atrial fibrillation Macular degeneration Left hemiparesis Cerebrovascular disease Gammopathy 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 Snoring Acute right MCA stroke (02/08/16) Obesity (BMI 30.0-34.9) Home Medications ???Medication ???Instructions ???Recorded ???Last Taken ???Type vit C 250 mg-vit E 90 mg-zinc 40 1 ea PO BID eye vitamin 05/07/18 U nknown History mg-copper 1 [id number] capsule apixaban 5 mg tablet 5 mg PO BID blood thinner #180 tab s 12/04/19 07/10/24 09:05 Rx pravastatin 10 mg tablet 10 mg PO QODAY CHOLESTEROL 1 07/08/24 22:55 History calcium carb 133 mg-vitD3 133 1 cap PO DAILY Supplement 02/08/22 Unknown History unit-mag amino acid chelate 67mg capsule (Coral Calcium) duloxetine 30 mg capsule,delayed 30 mg PO BID Depression 02/08/22 0 07/10/24 09:00 History release (Cymbalta) denosumab 60 mg/mL subcutaneous 60 mg subcut [id number] Osteoporosis 05/02/23 Unknown History syringe (Prolia) levetiracetam 250 mg tablet 250 mg PO DAILY Seizures 07/10/24 Unknown History acetaminophen 500 mg tablet 1,000 mg (2 x 500 mg) PO Q6H PRN 0 07/30/24 Unknown Rx PRN Pain Score 1-10 #0 tabs apple cider vinegar 500 mg tablet mg PO 09/21/24 Unknown History cholecalciferol (vitamin D3) 125 125 mcg PO QDAY 09/21/24 Unknown H istory mcg (5,000 unit) tablet cyanocobalamin (vitamin B-12) 1,000 mcg PO QDAY 09/21/24 Unknown History 1,000 mcg tablet levetiracetam 250 mg tablet 500 mg PO QPM 09/21/24 Unknown His tory omega-3 fatty acids-fish oil 435 cap PO 09/21/24 Unknown History mg-880 mg capsule (Fish Oil Extra Strength) pegcetacoplan (PF) 15 mg/0.1 mL 15 mg intravitreal [id number] Eyes 1 11/21/23 Unknown History intravitreal solution (Syfovre (PF)) metoprolol succinate 25 mg 12.5 mg (1/2 x 25 mg) PO DAILY Unknown Rx tablet,extended release 24 hr blood pressure #45 tabs amoxicillin 875 mg-potassium 1 tab PO Q12H 7 days #14 tabs 11/0 12/29 Unknown Rx clavulanate 125 mg tablet Allergy/AdvReac Type Severity Reaction Status Date / Time No Known Allergies Allergy Verified 09/05/25 10:35 Family History Father CAD (coronary artery disease) Aunt Breast cancer Sister Uterine cancer Surgical History History of laser refractive surgery S/P laser cataract surgery History of bilateral cataract extraction History of colonoscopy History of total mastectomy of right breast Social History household members: family Smoking Status: Never smoker (more content not included)... Normal [facility] Knee 1 or 2 Viewson 09-05-20 Knee 1 or 2 Views [facility] Imaging Services [address] [place] [address] Knee 1 or 2 Views MR#: [id number] Acct: [id number] Name: HENRY DEGROOT Rep #: [id number] : 1940 F 85 From: Juan Alberto Hdz MD PCP: Dr. Иван Lopez DO Status: REG ER Study: Knee 1 or 2 Views Date of Exam: 09/05/25 Exam# [id number] Ordering Dr: Nicci Pineda MD EXAM: XR Right Knee, 1 or 2 Views CLINICAL INDICATION: PAIN, FALL, BRUISING TECHNIQUE: Frontal and/or lateral views of the right knee. COMPARISON: No relevant prior studies available. FINDINGS: BONES/JOINTS: Unremarkable. No acute fracture. No dislocation. SOFT TISSUES: Unremarkable. RAD/Knee 1 or 2 Views IMPRESSION: No acute fracture. Reading Location: [facility] CC: Dr. Nicci Pineda MD; Dr. Иван Lopez DO [employer]: Signed Normal [facility] L501.4021on 09-05-2025 Trop T High Sen 18 ng/L High <=14 [facility] Comment on above: Performed By: #### M 100.636, M200.1000 #### [facility] Laboratory [address] [place], [address] Lactic Acidon 09-05-2025 Lactate [Moles/Vol] 1.4 mmol/L Normal 0.0-2.0 [place] Comment on above: Order Comment: Y Performed By: #### L 503.6005, L100.0100, L500.4050 #### [facility] [address] [place], [address] M100.678on 09-05-2025 M100.678 Pending SARS-CoV-2 (COVID 19) Negative INFLUENZA A Negative INFLUENZA B Negative RSV PCR Negative Normal [facility] Comment on above: Performed By: #### M 100.636, M200.1000 #### [facility] [address] [place], [address] Spine Cervical without Contr ason 09-05-2025 Spine Cervical without Contras [facility] Services [address] [place] [address] Spine Cervical without Contras MR#: [id number] Acct: [id number] Name: HENRY DEGROOT Wendy Rep #: [id number] : 1940 F 85 From: Ricardo Jessica MD PCP: Dr. Иван Lopez DO Status: REG ER Study: Spine Cervical without Contras Date of Exam: 11/05/24 Exam# [id number] Ordering Dr: Nicci Pineda MD PROCEDURE: SPINE CERVICAL WITHOUT CONTRAS 09/05/2025 REASON FOR EXAM: FALL TECHNIQUE: Procedure Code: CTSPC Modality: CT Procedure: SPINE CERVICAL WITHOUT CONTRAS Coronal and Sagittal reconstruction series were provided. One or more dose reduction techniques were used (e.g., Automated exposure control, adjustment of the mA and/or kV according to patient size, use of iterative reconstruction technique. RADIATION DOSE SUMMARY: Dose reduction strategies employed COMPARISON: Reviewed FINDINGS: Osseous structures intact. Prominent multilevel degenerative changes throughout the cervical spine more severe inferiorly. Alignment is grossly maintained. Vertebral body heights are preserved. Right apical pleural- parenchymal disease is noted, separately dictated on CT chest. CT/Spine Cervical without Contras IMPRESSION: No acute CT process in the cervical spine. Right apical pleural-parenchymal disease is noted, separately dictated on CT chest. [facility] CC: Dr. Nicci Pineda MD; Dr. Иван Lopez DO [employer]: Signed Normal [facility] Troponin T HS 2 HRon 025 Trop T High Sen 17 ng/L High <=14 [facility] Comment on above: Performed By: #### L 499.0042 #### [facility] Laboratory [address] [place], [address] Troponin T HS 4 HRon 025 Trop T High Sen Normal <=14 [facility] Comment on above: Result Comment: Canc elled via OM: Ordered Performed By: #### M 100.636, M200.1000 #### [facility] [address] [place], [address] Urinalysis, Completeon 09-05 EPI,SQUAMOUS 0-5 SEEN Normal 5-10 [facility] Comment on above: Order Comment: EFE TER SPECIMEN Performed By: #### L 400.0001, M100.678 ####[facility] [address] [place], [address] WBC 5-10 SEEN Normal 0-5 [facility] Comment on above: Order Comment: EFE TER SPECIMEN Performed By: #### L 400.0001, M100.678 ####[facility] [address] [place], [address] BACTERIA 0 SEEN Normal None Seen [facility] Comment on above: Order Comment: EFE TER SPECIMEN Performed By: #### L 400.0001, M100.678 ####[facility] [address] [place], [address] Mucus Ql (Urine sed) 0 SEEN Normal [facility] Comment on above: Order Comment: EFE TER SPECIMEN Performed By: #### L 400.0001, M100.678 ####[facility] [address] [place], [address] RBC 0 SEEN Normal 0-5 [facility] Comment on above: Order Comment: EFE TER SPECIMEN Performed By: #### L 400.0001, M100.678 ####[facility] [address] [place], [address] CDIFPCRon 06-15-2025 Clostridium difficile PCR Positive Abnormal Negative [facility] Comment on above: Performed By: #### C DIFPCR #### [address] [address] #### STGIPCR #### [place] [address] Clostridium difficile PCR Int See Below Normal [facility] Comment on above: Result Comment: Clinical Interpretation: tcdB gene detected. C.difficile toxigenic confirmatory assay ordered. Results to follow. A Positive C.difficile assay detection result does not necessarily indicate the presence of viable organisms. It does however indicate the presence of the tcdB gene and allows for the presumptive detection of the Clostridium difficile toxigenic organism. This assay cannot be used for species identification as it does not contain primers and probes specific to Clostridium difficile. As with all PCR based in vitro diagnostic tests, extremely low levels of target below the limit of detection of the assay may be detected, but results may not be reproducible. Infection control will be notified. Performed By: #### C DIFPCR #### [address] [address] #### STGIPCR #### [address] [address] LABORATORYOrdered By: Libby Cleary on 06-15-2025 Adenovirus 40+41 DNA CHELSIE+non-probe Ql (Stl) Not Detected *NA* (06/15/25 11:56 AM) Invalid Interpretation Code Not Detected AH Auto Microbiology GL SS Astrovirus subtypes 1-8 RNA CHELSIE+non-probe Ql (Stl) Not Detected *NA* (06/15/25 11:56 AM) Invalid Interpretation Code Not Detected AH Auto Microbiology GL SS C. cayetanensis DNA CHELSIE+non-probe Ql (Stl) Not Detected *NA* (06/15/25 11:56 AM) Invalid Interpretation Code Not Detected AH Auto Microbiology GL SS C. coli+jejuni+upsaliensis DNA CHELSIE+non-probe Ql (Stl) Not Detected *NA* (06/15/25 11:56 AM) Invalid Interpretation Code Not Detected AH Auto Microbiology GL SS Cryptosporidium sp DNA CHELSIE+non-probe Ql (Stl) Not Detected *NA* (06/15/25 11:56 AM) Invalid Interpretation Code Not Detected AH Auto Microbiology GL SS E. coli enteroaggregative Ember plasmid aggR+aatA genes CHELSIE+non-probe Ql (Stl) Not Detected *NA* (06/15/25 11:56 AM) Invalid Interpretation Code Not Detected AH Auto Microbiology GL SS E. coli enteropathogenic eae gene CHELSIE+non-probe Ql (Stl) Detected *ABN* (06/15/25 11:56 AM) Invalid Interpretation Code Not Detected AH Auto Microbiology GL SS E. coli enterotoxigenic ltA+st1a+st1b genes CHELSIE+non-probe Ql (Stl) Not Detected *NA* (06/15/25 11:56 AM) Invalid Interpretation Code Not Detected AH Auto Microbiology GL SS E. coli O157 DNA CHELSIE+non-probe Ql (Stl) Not Applicable (06/15/25 11:56 AM) Normal Not Detected AH Auto Microbiology GL SS E. coli stx1+stx2 genes CHELSIE+non-probe Ql (Stl) Not Detected *NA* (06/15/25 11:56 AM) Invalid Interpretation Code Not Detected AH Auto Microbiology GL SS E. histolytica DNA CHELSIE+non-probe Ql (Stl) Not Detected *NA* (06/15/25 11:56 AM) Invalid Interpretation Code Not Detected AH Auto Microbiology GL SS G. lamblia DNA CHELSIE+non-probe Ql (Stl) Not Detected *NA* (06/15/25 11:56 AM) Invalid Interpretation Code Not Detected AH Auto Microbiology GL SS Norovirus genogroup I+II RNA CHELSIE+non-probe Ql (Stl) Not Detected *NA* (06/15/25 11:56 AM) Invalid Interpretation Code Not Detected AH Auto Microbiology GL SS Plesiomonas shigelloides Not Detected *NA* (06/15/25 11:56 AM) Invalid Interpretation Code Not Detected AH Auto Microbiology GL SS Rotavirus A RNA CHELSIE+non-probe Ql (Stl) Not Detected *NA* (06/15/25 11:56 AM) Invalid Interpretation Code Not Detected AH Auto Microbiology GL SS S. enterica+bongori DNA CHELSIE+non-probe Ql (Stl) Not Detected *NA* (06/15/25 11:56 AM) Invalid Interpretation Code Not Detected AH Auto Microbiology GL SS Sapovirus genogroups I+II+IV+V RNA CHELSIE+non-probe Ql (Stl) Not Detected *NA* (06/15/25 11:56 AM) Invalid Interpretation Code Not Detected AH Auto Microbiology GL SS Shigella species+EIEC invasion plasmid antigen H ipaH gene CHELSIE+non-probe Ql (Stl) Not Detected *NA* (06/15/25 11:56 AM) Invalid Interpretation Code Not Detected AH Auto Microbiology GL SS Stool GI Comment See Comment 2 (06/15/25 11:56 AM) Normal [facility] Auto [facility] GL SS Comment on above: Interpretive Data: V irus, bacteria, and parasite nucleic acid may persist in vivo independently of organism viability. Negative Film Array GI panel results in the setting of clinical illness compatible with gastroenteritis may be due to infection by pathogens that are not detected by this test. False negatives may occur due to genetic variability in the region targeted by the primers. V. cholerae DNA CHELSIE+non-probe Ql (Stl) Not Detected *NA* (06/15/25 11:56 AM) Invalid Interpretation Code Not Detected AH Auto Microbiology GL SS V. cholerae+parahaemolytic us+vulnificus DNA CHELSIE+non-probe Ql (Stl) Not Detected *NA* (06/15/25 11:56 AM) Invalid Interpretation Code Not Detected AH Auto Microbiology GL SS Y. enterocolitica DNA CHELSIE+non-probe Ql (Stl) Not Detected *NA* (06/15/25 11:56 AM) Invalid Interpretation Code Not Detected AH Auto Microbiology GL SS LABORATORYOrdered By: Juan Alberto fagan on 06-15-2025 Clostridium difficile PCR Positive *ABN* (06/15/25 11:56 AM) Invalid Interpretation Code Negative AO Auto Urine SS Clostridium difficile PCR Int See Below 1 *NA* (06/15/25 11:56 AM) Invalid Interpretation Code AO Auto Urine SS Comment on above: Result Comment: Clinical Interpretation: tcdB gene detected. C.difficile toxigenic confirmatory assay ordered. Results to follow. A Positive C.difficile assay detection result does not necessarily indicate the presence of viable organisms. It does however indicate the presence of the tcdB gene and allows for the presumptive detection of the Clostridium difficile toxigenic organism. This assay cannot be used for species identification as it does not contain primers and probes specific to Clostridium difficile. As with all PCR based in vitro diagnostic tests, extremely low levels of target below the limit of detection of the assay may be detected, but results may not be reproducible. Infection control will be notified. No Panel Informationon 06-15 Shiga Toxins 1 and 2 Absence of Shiga to prudencio 1 Absence of Shiga toxin 2 [facility] Comment on above: Testing performed by immunochromatography. Clostridium difficile Toxin Confirmation Toxin A/B Confirmation Assay: Negative C. difficile toxin is either absent or below the detection limit of the test. [facility] Comment on above: The C.DIFF QUIK CHEC K COMPLETE TEST is used to detect C. difficile antigen and toxin(s) in fecal specimens. The test confirms the presence of toxin in feces and this information should be taken under consideration by the physician in light of the clinical history and physical examination of the patient. Fecal specimens are extremely complex. Optimal results with the C. DIFF CHECK COMPLETE test are obtained with specimens that are less than 24 hours old. No data exists on the effects of colonic washes, barium enemas, laxitive, or bowel preperations on the performance of the C. DIFF QUICK CHECK COMPLETE test. All of these procedures can result in extensive dilution or the presence of additives that may affect test performance. Culture Stool Normal stool geraldine present. Salmonella: Negative Shigella: Negative Campylobacter: Negative [facility] Comment on above: Requests for alterna tive pathogens including Yersinia, E. coli 0157, C. difficile toxin, Rotavirus, Giardia and parasites require specific requests. Kamryn 06-15-2025 Adenovirus F 40/41 Not detected Normal Not Detected [facility] Comment on above: Performed By: #### C DIFPCR #### [address] [address] #### STGIPCR #### [facility] [address] [place] [id number] Astrovirus Not detected Normal Not Detected [facility] Comment on above: Performed By: #### C DIFPCR #### [place] [address] #### STGIPCR #### [facility] [address] [place] [id number] Campy (jejuni/coli/ups) Not detected Normal Not Detected [facility] Comment on above: Performed By: #### C DIFPCR #### [address] [address] #### STGIPCR #### [facility] [facility] [address] [place] [id number] Cryptosporidium Not detected Normal Not Detected [facility] Comment on above: Performed By: #### C DIFPCR #### [address] [address] #### STGIPCR #### [place] [id number] Cyclospora Not detected Normal Not Detected [facility] Comment on above: Performed By: #### C DIFPCR #### [address] [address] #### STGIPCR #### [facility] [address] [place] [address] E. coli (ETEC) Not detected Normal Not Detected [facility] Comment on above: Performed By: #### C DIFPCR #### [address] [address] #### STGIPCR #### [facility] [address] [place] [address]57 E. coli O157 Not Applicable Normal Not Detected [facility] Comment on above: Performed By: #### C DIFPCR #### [address] [address] #### STGIPCR #### [facility] [address] [place] [address] Entamoeba histolytica Not detected Normal Not Detected [facility] Comment on above: Performed By: #### C DIFPCR #### [address] [address] #### STGIPCR #### [facility] [address] [place] [address] Enteroaggregative E. coli (EAEC) Not detected Normal Not Detected [facility] Comment on above: Performed By: #### C DIFPCR #### [address] [address] #### STGIPCR #### [facility] [address] [place] [address] [id number] Enteropathogenic E. coli (EPEC) Detected Abnormal Not Detected [facility] Comment on above: Performed By: #### C DIFPCR #### [address] [address] #### STGIPCR #### [facility] [address] [place] [address] Giardia lamblia Not detected Normal Not Detected [facility] Comment on above: Performed By: #### C DIFPCR #### [address] [address] #### STGIPCR #### [facility] [address] [place] [address] Norovirus GI/GII Not detected Normal Not Detected [facility] Comment on above: Performed By: #### C DIFPCR #### [address] [address] #### STGIPCR #### [facility] [address] [place] [address] Plesiomonas shigelloides Not detected Normal Not Detected [facility] Comment on above: Performed By: #### C DIFPCR #### [address] [address] #### STGIPCR #### [facility] [address] [place] [address] Rotavirus A Not detected Normal Not Detected [facility] Comment on above: Performed By: #### C DIFPCR #### [place] [address] #### STGIPCR #### [facility] [address] [place] [address] Salmonella species, stool Not detected Normal Not Detected [facility] Comment on above: Performed By: #### C DIFPCR #### [place] [address] #### STGIPCR #### [place] [address] Sapovirus I,II,IV,V Not detected Normal Not Detected [facility] Comment on above: Performed By: #### C DIFPCR #### [place] [address] #### STGIPCR #### [facility] [address] [place] [address] Shig Tox E. coli (STEC) Not detected Normal Not Detected [facility] Comment on above: Performed By: #### C DIFPCR #### [address] [address] #### STGIPCR #### [facility] [address] [place], [place] [phone] Shigella/Enteroinvasive E. coli (EIEC) Not detected Normal Not Detected [facility] Comment on above: Performed By: #### C DIFPCR #### [place] [address] #### STGIPCR #### [facility] [address] [place] [address] Stool GI Comment See Comment Normal [facility] Comment on above: Result Comment: Viru s, bacteria, and parasite nucleic acid may persist in vivo independently of organism viability. Negative Film Array GI panel results in the setting of clinical illness compatible with gastroenteritis may be due to infection by pathogens that are not detected by this test. False negatives may occur due to genetic variability in the region targeted by the primers. Performed By: #### C DIFPCR #### [place] [address] #### STGIPCR #### [place] [address] Vibrio cholerae Not detected Normal Not Detected [facility] Comment on above: Performed By: #### C DIFPCR #### [place] [address] #### STGIPCR #### [place] [address] Vibrio par/vul/chol Not detected Normal Not Detected [facility] Comment on above: Performed By: #### C DIFPCR #### [place] [address] #### STGIPCR #### [place] [address] Yersinia enterocolitica Not detected Normal Not Detected [facility] Comment on above: Performed By: #### C DIFPCR #### [place] [address] #### STGIPCR #### [place] [address] IMIPENEM:SUSC:PT:ISOLATE:ORD QN:MICon 06-14-2025 Imipenem BENEDICT [Susc] >100,000 cfu/ml Escherichia coli [facility] Imipenem BENEDICT [Susc]on 2024 Escherichia coli Escherichia coli [facility] LABORATORYOrdered By: Joann Lares on 02-26-2025 Albumin DL <= 20 mg/L (U) [Mass/Vol] 3.3 mg/L Invalid Interpretation Code AO ADM SS Albumin/Creatinine DL <= 20 mg/L (U) [Mass ratio] 3 mg/G Normal 0 - 30 mg/G AO Chemistry S Creatinine (U) [Mass/Vol] 101.6 mg/dL Normal 29.0 - 226.0 mg/dL AO ADM SS MALBRon 02-26-2025 U Creatinine 101.6 mg/dL Normal 29.0-226.0 [facility] Comment on above: Performed By: #### M ALBR #### [address] [address] U Microalb 3.3 mg/L Normal [facility] Comment on above: Performed By: #### M ALBR #### [address] [address] U Ratio Alb/Cre 3 mg/G Normal 0-30 [facility] Comment on above: Performed By: #### M ALBR #### [address] [address] .Auto Diffon 02-19-2025 Basophil, Absolute 0.0 10 3/mcL Normal 0.0-0.3 [facility] Comment on above: Performed By: #### C DIFPCR #### [address] [address] #### STGIPCR #### [address] [address] Basophils/100 WBC (Bld) 0.6 % Normal 0.0-2.5 [facility] Comment on above: Performed By: #### C DIFPCR #### [place] [address] #### STGIPCR #### [address] [address] Eosinophil, Absolute 0.2 10 3/mcL Normal 0.0-0.7 [facility] Comment on above: Performed By: #### C DIFPCR #### [place] [address] #### STGIPCR #### [address] [address] Eosinophils/100 WBC (Bld) 2.4 % Normal 0.0-6.0 [facility] Comment on above: Performed By: #### C DIFPCR #### [address] [address] #### STGIPCR #### [address] [address] Lymphocyte, Absolute 1.5 10 3/mcL Normal 0.9-4.3 [facility] Comment on above: Performed By: #### C DIFPCR #### [place] [address] #### STGIPCR #### [address] [address] Lymphocytes/100 WBC (Bld) 22.0 % Normal 20.0-40.0 [facility] Comment on above: Performed By: #### C DIFPCR #### [place] [address] #### STGIPCR #### [address] [address] Monocyte, Absolute 0.7 10 3/mcL Normal 0.1-1.4 [facility] Comment on above: Performed By: #### C DIFPCR #### [place] [id number] #### STGIPCR #### [address] [address] Monocytes/100 WBC (Bld) 10.3 % Normal 2.0-13.0 [facility] Comment on above: Performed By: #### C DIFPCR #### [place] [address] #### STGIPCR #### [address] [address] Neutrophils/100 WBC (Bld) 64.7 % Normal 50.0-75.0 [facility] Comment on above: Performed By: #### C DIFPCR #### [place] [id number] #### STGIPCR #### [address] [address] .GFRon 02-19-2025 Estimated Glomerular Filtration Rate 65 ml/min/1.73sqm Normal [facility] Comment on above: Result Comment: Stages of Chronic Kidney Disease (CKD) Stage Description eGFR(ml/min/1.73 sq.m.) CKD 1 Normal kidney function or >=90 normal kindney function with possible kidney damage (ex. Proteinuria) CKD 2 Kidney damage with mild loss 60-89 of kidney function CKD 3a Mild to moderate loss of kidney 45-59 function CKD 3b Moderate to severe loss of 30-44 of kindey function CKD 4 Severe loss of kidney function 15-29 CKD 5 Kidney failure <15 Note: (go live 2024) the eGFR calculation was updated to the 2020 CKD-EPI creatinine equation without a race factor to calculate the eGFR results. Performed By: #### C DIFPCR #### [place] [id number] #### STGIPCR #### [place] [address] .NEUABSon 02-19-2025 Neutrophil, Absolute 4.4 10 3/mcL Normal 2.3-8.1 [facility] Comment on above: Performed By: #### C DIFPCR #### [place] [id number] #### STGIPCR #### [place] [address] CBCon 02-19-2025 Erythrocyte distribution width (RBC) [Ratio] 13.7 % Normal 11.5-15.5 [facility] Comment on above: Performed By: #### C BC, ANEU, VIDH, GFR, LIPID, CMP, TSH, ADIFF #### [address] [address] Hematocrit (Bld) [Volume fraction] 41.4 % Normal 34.0-46.0 [facility] Comment on above: Performed By: #### C BC, ANEU, VIDH, GFR, LIPID, CMP, TSH, ADIFF #### [address] [address] Hgb 14.0 G/dL Normal 12.0-16.0 [facility] Comment on above: Performed By: #### C BC, ANEU, VIDH, GFR, LIPID, CMP, TSH, ADIFF #### [address] [address] MCH (RBC) [Entitic mass] 32.3 pg Normal 27.0-33.0 [facility] Comment on above: Performed By: #### C BC, ANEU, VIDH, GFR, LIPID, CMP, TSH, ADIFF #### [address] [address] MCHC 33.7 G/dL Normal 32.0-36.0 [facility] Comment on above: Performed By: #### C BC, ANEU, VIDH, GFR, LIPID, CMP, TSH, ADIFF #### [address] [address] MCV (RBC) [Entitic vol] 95.7 fL Normal 80.0-99.0 [facility] Comment on above: Performed By: #### C BC, ANEU, VIDH, GFR, LIPID, CMP, TSH, ADIFF #### [address] [address] Platelet 244 10 3/mcL Normal 150-450 [facility] Comment on above: Performed By: #### C BC, ANEU, VIDH, GFR, LIPID, CMP, TSH, ADIFF #### [address] [address] Platelet mean volume (Bld) [Entitic vol] 10.0 fL Normal 6.6-10.5 [facility] Comment on above: Performed By: #### C BC, ANEU, VIDH, GFR, LIPID, CMP, TSH, ADIFF #### [address] [address] RBC 4.32 10 6/mcL Normal 4.10-5.30 [facility] Comment on above: Performed By: #### C BC, ANEU, VIDH, GFR, LIPID, CMP, TSH, ADIFF #### [address] [address] WBC 6.8 10 3/mcL Normal 4.5-10.8 [facility] Comment on above: Performed By: #### C BC, ANEU, VIDH, GFR, LIPID, CMP, TSH, ADIFF #### [address] [address] CMPon 02-19-2025 Albumin Level 2.9 G/dL Low 3.4-4.8 [facility] Comment on above: Performed By: #### C DIFPCR #### [place] [address] #### STGIPCR #### [address] [address] Albumin/Globulin [Mass ratio] 0.7 {ratio} Low 1.1-2.5 [facility] Comment on above: Performed By: #### C DIFPCR #### [place] [address] #### STGIPCR #### [place] [address] ALP [Catalytic activity/Vol] 63 U/L Normal 40-135 [facility] Comment on above: Performed By: #### C DIFPCR #### [place] [address] #### STGIPCR #### [address] [address] ALT [Catalytic activity/Vol] 14 U/L Normal 14-59 [facility] Comment on above: Performed By: #### C DIFPCR #### [place] [address] #### STGIPCR #### [address] [address] AST [Catalytic activity/Vol] 24 U/L Normal 10-40 [facility] Comment on above: Performed By: #### C DIFPCR #### [place] [address] #### STGIPCR #### [place] [id number] Bili Total 0.6 mg/dL Normal 0.2-1.0 [facility] Comment on above: Result Comment: Use of this assay is not recommended for patients undergoing treatment with eltrombopag due to the potential for falsely elevated results. Performed By: #### C DIFPCR #### [place] [address] #### STGIPCR #### [address] [address] BUN/Creatinine Ratio 25 ratio Normal 7-27 [facility] Comment on above: Performed By: #### C DIFPCR #### [place] [address] #### STGIPCR #### [address] [address] Calcium [Mass/Vol] 9.6 mg/dL Normal 8.4-10.2 [facility] Comment on above: Performed By: #### C DIFPCR #### [place] [address] #### STGIPCR #### [address] [address] Chloride [Moles/Vol] 104 mmol/L Normal 98-107 [facility] Comment on above: Performed By: #### C DIFPCR #### [place] [address] #### STGIPCR #### [address] [address] CO2 [Moles/Vol] 31 mmol/L Normal 23-31 [facility] Comment on above: Performed By: #### C DIFPCR #### [place] [address] #### STGIPCR #### [address] [address] Creatinine [Mass/Vol] 0.88 mg/dL Normal 0.55-1.02 [facility] Comment on above: Result Comment: Test ing performed on Siemens Dimension EXL analyzer using a modified kinetic Cecilio technique. Performed By: #### C DIFPCR #### [address] [address] #### STGIPCR #### [address] [address] Electrolyte Balance 3.0 mEq/L Low 4.0-15.0 [facility] Comment on above: Performed By: #### C DIFPCR #### [address] [address] #### STGIPCR #### [address] [address] Globulin 4.0 G/dL High 1.5-3.8 [facility] Comment on above: Performed By: #### C DIFPCR #### [place] [address] #### STGIPCR #### [address] [address] Glucose [Mass/Vol] 87 mg/dL Normal 83-110 [facility] Comment on above: Performed By: #### C DIFPCR #### [place] [address] #### STGIPCR #### [address] [address] Potassium [Moles/Vol] 4.3 mmol/L Normal 3.5-5.1 [facility] Comment on above: Performed By: #### C DIFPCR #### [address] [address] #### STGIPCR #### [address] [address] Sodium [Moles/Vol] 138 mmol/L Normal 136-145 [facility] Comment on above: Performed By: #### C DIFPCR #### [address] [address] #### STGIPCR #### [address] [address] Total Protein 6.9 G/dL Normal 6.4-8.2 [facility] Comment on above: Performed By: #### C DIFPCR #### [address] [address] #### STGIPCR #### [facility] [address] [place] [address] Urea nitrogen [Mass/Vol] 22 mg/dL High -18 [facility] Comment on above: Performed By: #### C DIFPCR #### [address] [address] #### STGIPCR #### [address] [address] LIPIDon 02-19-2025 Cholesterol [Mass/Vol] 170 mg/dL Normal 0-200 [facility] Comment on above: Result Comment: Chol esterol Reference Interval: Less than 200 Desirable 200-239 Borderline high risk 240 and above High risk Performed By: #### C DIFPCR #### [address] [address] #### STGIPCR #### [address] [address] Cholesterol in HDL [Mass/Vol] 72 mg/dL High 40-60 [facility] Comment on above: Performed By: #### C DIFPCR #### [address] [address] #### STGIPCR #### [address] [address] Cholesterol in LDL [Mass/Vol] 86 mg/dL Normal 0-130 [facility] Comment on above: Performed By: #### C DIFPCR #### [address] [address] #### STGIPCR #### [address] [address] Triglyceride [Mass/Vol] 61 mg/dL Normal 0-150 [facility] Comment on above: Result Comment: Trig lyceride Reference Interval: Less than 150 Normal 150-199 Borderline high risk 200-499 High risk 500 or higher Very high risk Performed By: #### C DIFPCR #### [place] [address] #### STGIPCR #### [address] [address] TSHon 02-19-2025 TSH Qn 1.63 m[IU]/L Normal 0.36-3.74 [facility] Comment on above: Performed By: #### C DIFPCR #### [address] [address] #### STGIPCR #### [address] [address] VIDHon 02-19-2025 Vit. D 25-Hydroxy 32.2 ng/mL Normal [facility] Comment on above: Result Comment: Inte rpretive Values Based on Total 25(OH) Vitamin D: Deficient <20 ng/mL Insufficient 20 - <30 ng/mL Sufficient 30-100 ng/mL Performed By: #### C DIFPCR #### [address] [address] #### STGIPCR #### [place] [id number] Cardiology Visit Reporton Cardiology Visit Report [facility] [address] [place], [place] [address] OFFICE VISIT Date of Service: 12/23/24 MR#: [id number] Acct: [id number] Name: HENRY DEGROOT Rep #: [id number] : 1940 Provider: REHANA villanueva Age/Sex: 84/F Location: [facility] Status: Signed HPI HPI History of Present Illness Details: This is an 84-year-old white female who presents to the office today for a cardiovascular follow-up visit. She has a history of paroxysmal atrial fibrillation and previous CVA. She presents to the office in a wheel chair. She states she had an episode of atrial fibrillation in November 2023, and presented to the emergency room. She states she was given IV Cardizem, and converted back to NSR. She was evaluated for her syncopal episode in the hospital in July 2024. During her hospitalization she was noted to have atrial fibrillation RVR along with an 8-second pause during sleep. She had an event monitor in September 2024 that showed an average heart rate of 101 bpm. She had 2 episodes of atrial fibrillation flutter. The timing of her metoprolol was changed evening with consideration to uptitrate as needed. Increasing hydration has helped her syncope. She denies chest, arm, jaw, or neck discomfort. She denies palpitations. She denies bilateral lower extremity edema. She denies claudication. She continues with shortness of breath with activity that is improved. She denies shortness of breath at rest, orthopnea, or PND. She denies chronic cough. She denies significant, sudden weight gain. She denies lightheadedness, dizziness, near-syncope, or syncope. She denies blood in urine, blood in stool, or epistaxis. He denies fever with chills. She denies myalgia. She denies fatigue. Her exercise level has remained stable. 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 Is patient in pain?: No Allergies No Known Allergies Allergy (Verified 09/21/24 09:30) Medications ???Medication ???Instructions ???Recorded ???Confirmed ???Type vit C 250 mg-vit E 90 mg-zinc 40 1 ea PO BID eye vitamin 05/07/18 0 12/23/24 History mg-copper 1 [id number] capsule apixaban 5 mg tablet 5 mg PO BID blood thinner #180 tab s 12/04/19 12/23/24 Rx pravastatin 10 mg tablet 10 mg PO QODAY CHOLESTEROL 1 12/23/24 History calcium carb 133 mg-vitD3 133 1 cap PO DAILY Supplement 02/08/22 12/23/24 History unit-mag amino acid chelate 67mg capsule (Coral Calcium) duloxetine 30 mg capsule,delayed 30 mg PO BID Depression 02/08/22 0 12/23/24 History release (Cymbalta) denosumab 60 mg/mL subcutaneous 60 mg subcut [id number] Osteoporosis 05/02/23 09/21/24 History syringe (Prolia) metoprolol succinate 25 mg 12.5 mg (1/2 x 25 mg) PO DAILY 12/23/24 Rx tablet,extended release 24 hr blood pressure #45 tabs levetiracetam 250 mg tablet 250 mg PO DAILY Seizures 07/10/24 12/23/24 History acetaminophen 500 mg tablet 1,000 mg (2 x 500 mg) PO Q6H PRN 0 07/30/24 12/23/24 Rx PRN Pain Score 1-10 #0 tabs apple cider vinegar 500 mg tablet mg PO 09/21/24 12/23/24 History cholecalciferol (vitamin D3) 125 125 mcg PO QDAY 09/21/24 12/23/24 History mcg (5,000 unit) tablet cyanocobalamin (vitamin B-12) 1,000 mcg PO QDAY 09/21/24 5 History 1,000 mcg tablet levetiracetam 250 mg tablet 500 mg PO QPM 09/21/24 12/23/24 Hi story omega-3 fatty acids-fish oil 435 cap PO 09/21/24 12/23/24 History mg-880 mg capsule (Fish Oil Extra Strength) pegcetacoplan (PF) 15 mg/0.1 mL 15 mg intravitreal [id number] Eyes 1 11/21/23 12/23/24 History intravitreal solution (Syfovre (PF)) Have you fallen in the past year?: No PFSH Medical History (Reviewed 12/23/24 @ 11:29 by Tai Krishna CERTIFIED ART THERAPIST, CERTIFIED ART THERAPIST-C) History of fall Wears hearing aid Wears glasses Cancer Depression Walker as ambulation aid Arthritis UTI (urinary tract infection) Loss of consciousness Difficulty swallowing Blood in stool History of diverticulitis Non-smoker CPAP (continuous positive airway pressure) dependence Leg cramps History of pain when walking History of edema Hypertension History of echocardiogram Cardiology follow-up encounter Seizure Paroxysmal atrial fibrillation Macular degeneration Left hemiparesis Cerebrovascular disease Gammopathy 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 Snoring Acute right MCA stroke (02/08/16) Obesity (BMI 30.0-34.9) Surgical History (Reviewed 12/23/24 @ 11:29 by Tai Krishna CERTIFIED ART THERAPIST, CERTIFIED ART THERAPIST-C) History of (more content not included)... Normal [facility] Urine Cultureon 11-20-2024 URC Escherichia coli Dale Count 80,000-100,000 Escherichia coli: REACTION Ampicillin Islt BENEDICT 8 Ampicillin+Sulbac Islt BENEDICT <=2 S Cefepime Islt BENEDICT <=0.12 S cefTRIAXone Islt BENEDICT <=0.25 S Ciprofloxacin Islt BENEDICT <=0.06 S B-Lactamase Extended Susc Islt NEG Gentamicin Islt BENEDICT <=1 S levoFLOXacin Islt BENEDICT <=0.12 S Meropenem Islt BENEDICT <=0.25 S Nitrofurantoin Islt BENEDICT <=16 S Pip+Tazo Islt BENEDICT <=4 S TMP SMX Islt BENEDICT <=20 S Normal [facility] Comment on above: Performed By: #### M 100.636, M200.1000 #### [facility] [address] [place], [place], [id number] [phone] Urinalysis, Routine (Dipstic k)on 11-18-2024 Clarity (U) Cloudy Normal Clear [facility] Comment on above: Order Comment: PT TO [place] URINARY TRACT [facility] [place] AND MAX STRENGTH B4 PEEING (4)Urine, Random Performed By: #### M 100.636, M200.1000 #### [facility] [address] [place], [address] BILIRUBIN URINE 3 mg/dL Abnormal Negative [facility] Comment on above: Order Comment: PT TO [place] URINARY TRACT HE[facility] [place] AND MAX STRENGTH B4 PEEING (4)Urine, Random Result Comment: COLO R OF URINE MAY AFFECT DIPSTICK RESULTS. Performed By: #### M 100.636, M200.1000 #### [facility] [address] [place], [address] Color (U) Red Normal Yellow [facility] Comment on above: Order Comment: PT TO [place] URINARY TRACT HE[facility] [place] AND MAX STRENGTH B4 PEEING (4)Urine, Random Performed By: #### M 100.636, M200.1000 #### [facility] [address] [place], [address] GLUCOSE, UR Normal Normal Normal [facility] Comment on above: Order Comment: PT TO [place] URINARY TRACT [facility] [place] AND MAX STRENGTH B4 PEEING (4)Urine, Random Performed By: #### M 100.636, M200.1000 #### [facility] [address] [place], [address] KETONE UR Negative Normal Negative [facility] Comment on above: Order Comment: PT TO [place] URINARY TRACT [facility] [place] AND MAX STRENGTH B4 PEEING (4)Urine, Random Performed By: #### M 100.636, M200.1000 #### [facility] [address] [place], [address] LEUK ESTERASE Negative Normal Negative [facility] Comment on above: Order Comment: PT TO [place] URINARY TRACT [facility] [place] AND MAX STRENGTH B4 PEEING (4)Urine, Random Performed By: #### M 100.636, M200.1000 #### [facility] [address] [place], [address] Nitrite Ql (U) Negative Normal Negative [facility] Comment on above: Order Comment: PT TO [place] URINARY TRACT [facility] [place] AND MAX STRENGTH B4 PEEING (4)Urine, Random Performed By: #### M 100.636, M200.1000 #### [facility] [address] [place], [address] OCCULT BLOOD-UR 10 /ul Abnormal Negative [facility] Comment on above: Order Comment: [place] URINARY TRACT HEALTH [facility]AN[facility]Y AND MAX STRENGTH B4 PEEING (4)Urine, Random Performed By: #### M 100.636, M200.1000 #### [facility] [address] [place], [address] pH UR 5.0 Normal 5.0 - 8.0 [facility] Comment on above: Order Comment: PT [place] URINARY TRACT HEALTH [place]ANB[place] AND MAX STRENGTH B4 PEEING (4)Urine, Random Performed By: #### M 100.636, M200.1000 #### [facility] [address] [place], [address] PROT DIPSTX 30 mg/dl Abnormal Negative [facility] Comment on above: Order Comment: [place] [facility]INARY TRACT HEALTH [place] AND MAX STRENGTH B4 PEEING (4)Urine, Random Performed By: #### M 100.636, M200.1000 #### [facility] [address] [place], [address] SP.GR. DIPSTX 1.025 Normal 1.002-1.03 0 [facility] Comment on above: Order Comment: [place] URINARY TRACT HEALTH [place]AN[place] AND MAX STRENGTH B4 PEEING (4)Urine, Random Performed By: #### M 100.636, M200.1000 #### [facility] [address] [place], [place], [id number] UROBILI Normal Normal Normal [facility] Comment on above: Order Comment: [place] [facility]INARY TRACT HEALTH [place] AND MAX STRENGTH B4 PEEING (4)Urine, Random Performed By: #### M 100.636, M200.1000 #### [facility] [address] [place], [address] No Panel Informationon 10-07 Culture Urine No growth at 48 hours. [facility] .Auto Diffon 10-06-2024 Basophil, Absolute 0.0 10 3/mcL Normal 0.0-0.2 [facility] Comment on above: Performed By: #### C BC, PBNP, ADIFF, GFR, ANEU, CMP #### [address] [address] Basophils/100 WBC (Bld) 0.4 % Normal 0.0-2.5 [facility] Comment on above: Performed By: #### C BC, PBNP, ADIFF, GFR, ANEU, CMP #### [address] [address] Eosinophil, Absolute 0.1 10 3/mcL Normal 0.0-0.7 [facility] Comment on above: Performed By: #### C BC, PBNP, ADIFF, GFR, ANEU, CMP #### [address] [address] Eosinophils/100 WBC (Bld) 1.3 % Normal 0.0-7.0 [facility] Comment on above: Performed By: #### C BC, PBNP, ADIFF, GFR, ANEU, CMP #### [address] [address] Lymphocyte, Absolute 1.9 10 3/mcL Normal 0.9-4.3 [facility] Comment on above: Performed By: #### C BC, PBNP, ADIFF, GFR, ANEU, CMP #### [address] [address] Lymphocytes/100 WBC (Bld) 20.0 % Normal 20.0-40.0 [facility] Comment on above: Performed By: #### C BC, PBNP, ADIFF, GFR, ANEU, CMP #### [address] [address] Monocyte, Absolute 0.7 10 3/mcL Normal 0.1-1.4 [facility] Comment on above: Performed By: #### C BC, PBNP, ADIFF, GFR, ANEU, CMP #### [address] [address] Monocytes/100 WBC (Bld) 8.0 % Normal 2.0-13.0 [facility] Comment on above: Performed By: #### C BC, PBNP, ADIFF, GFR, ANEU, CMP #### [address] [address] Neutrophils/100 WBC (Bld) 70.3 % Normal 50.0-75.0 [facility] Comment on above: Performed By: #### C BC, PBNP, ADIFF, GFR, ANEU, CMP #### [address] [address] .GFRon 10-06-2024 GFR 74 ml/min/1.73sqm Normal [facility] Comment on above: Result Comment: GFR Population mean for , Non- Americans Ages 20-29 = 116 mL/min/1.73 sq.m. Ages 30-39 = 107 mL/min/1.73 sq.m. Ages 40-49 = 99 mL/min/1.73 sq.m. Ages 50-59 = 93 mL/min/1.73 sq.m. Ages 60-69 = 85 mL/min/1.73 sq.m. Ages 70+ = 75 mL/min/1.73 sq.m. Chronic Kidney Disease: Less than 60 mL/min/1.73 square meters End Stage Renal Disease: Less than 15 mL/min/1.73 square meters Performed By: #### C BC, PBNP, ADIFF, GFR, ANEU, CMP #### [address] [address] GFR Non- 61 ml/min/1.73sqm Normal [facility] Comment on above: Result Comment: GFR Population mean for , Non- Americans Ages 20-29 = 116 mL/min/1.73 sq.m. Ages 30-39 = 107 mL/min/1.73 sq.m. Ages 40-49 = 99 mL/min/1.73 sq.m. Ages 50-59 = 93 mL/min/1.73 sq.m. Ages 60-69 = 85 mL/min/1.73 sq.m. Ages 70+ = 75 mL/min/1.73 sq.m. Chronic Kidney Disease: Less than 60 mL/min/1.73 square meters End Stage Renal Disease: Less than 15 mL/min/1.73 square meters Performed By: #### C BC, PBNP, ADIFF, GFR, ANEU, CMP #### [address] [address] .NEUABSon 10-06-2024 Neutrophil, Absolute 6.6 10 3/mcL Normal 2.3-8.1 [facility] Comment on above: Performed By: #### C BC, PBNP, ADIFF, GFR, ANEU, CMP #### [address] [address] CBCon 10-06-2024 Erythrocyte distribution width (RBC) [Ratio] 13.3 % Normal 11.5-15.5 [facility] Comment on above: Performed By: #### C BC, PBNP, ADIFF, GFR, ANEU, CMP #### [place] [address] Hematocrit (Bld) [Volume fraction] 42.0 % Normal 34.0-46.0 [facility] Comment on above: Performed By: #### C BC, PBNP, ADIFF, GFR, ANEU, CMP #### [place] [address] Hgb 13.9 G/dL Normal 12.0-16.0 [facility] Comment on above: Performed By: #### C BC, PBNP, ADIFF, GFR, ANEU, CMP #### [address] [address] MCH (RBC) [Entitic mass] 32.1 pg Normal 27.0-33.0 [facility] Comment on above: Performed By: #### C BC, PBNP, ADIFF, GFR, ANEU, CMP #### [address] [address] MCHC 33.2 G/dL Normal 32.0-36.0 [facility] Comment on above: Performed By: #### C BC, PBNP, ADIFF, GFR, ANEU, CMP #### [address] [address] MCV (RBC) [Entitic vol] 96.7 fL Normal 80.0-99.0 [facility] Comment on above: Performed By: #### C BC, PBNP, ADIFF, GFR, ANEU, CMP #### [address] [address] Platelet 311 10 3/mcL Normal 150-450 [facility] Comment on above: Performed By: #### C BC, PBNP, ADIFF, GFR, ANEU, CMP #### [address] [address] Platelet mean volume (Bld) [Entitic vol] 9.4 fL Normal 6.6-10.5 [facility] Comment on above: Performed By: #### C BC, PBNP, ADIFF, GFR, ANEU, CMP #### [place] [address] RBC 4.35 10 6/mcL Normal 4.10-5.30 [facility] Comment on above: Performed By: #### C BC, PBNP, ADIFF, GFR, ANEU, CMP #### [place] [address] WBC 9.3 10 3/mcL Normal 4.5-10.8 [facility] Comment on above: Performed By: #### C BC, PBNP, ADIFF, GFR, ANEU, CMP #### [place] [address] CMPon 10-06-2024 Albumin Level 2.9 G/dL Low 3.4-4.8 [facility] Comment on above: Performed By: #### C BC, PBNP, ADIFF, GFR, ANEU, CMP #### [place] [address] Albumin/Globulin [Mass ratio] 0.8 {ratio} Low 1.1-2.5 [facility] Comment on above: Performed By: #### C BC, PBNP, ADIFF, GFR, ANEU, CMP #### [place] [address] ALP [Catalytic activity/Vol] 76 U/L Normal 40-135 [facility] Comment on above: Performed By: #### C BC, PBNP, ADIFF, GFR, ANEU, CMP #### [place] [address] ALT [Catalytic activity/Vol] 19 U/L Normal 14-59 [facility] Comment on above: Performed By: #### C BC, PBNP, ADIFF, GFR, ANEU, CMP #### [address] [address] AST [Catalytic activity/Vol] 16 U/L Normal 10-40 [facility] Comment on above: Performed By: #### C BC, PBNP, ADIFF, GFR, ANEU, CMP #### [address] [address] Bili Total 0.5 mg/dL Normal 0.2-1.0 [facility] Comment on above: Result Comment: Use of this assay is not recommended for patients undergoing treatment with eltrombopag due to the potential for falsely elevated results. Performed By: #### C BC, PBNP, ADIFF, GFR, ANEU, CMP #### [address] [address] BUN/Creatinine Ratio 25 ratio Normal 7-27 [facility] Comment on above: Performed By: #### C BC, PBNP, ADIFF, GFR, ANEU, CMP #### [address] [address] Calcium [Mass/Vol] 9.7 mg/dL Normal 8.4-10.2 [facility] Comment on above: Performed By: #### C BC, PBNP, ADIFF, GFR, ANEU, CMP #### [address] [address] Chloride [Moles/Vol] 100 mmol/L Normal 98-107 [facility] Comment on above: Performed By: #### C BC, PBNP, ADIFF, GFR, ANEU, CMP #### [address] [address] CO2 [Moles/Vol] 32 mmol/L High 23-31 [facility] Comment on above: Performed By: #### C BC, PBNP, ADIFF, GFR, ANEU, CMP #### [address] [address] Creatinine [Mass/Vol] 0.88 mg/dL Normal 0.55-1.02 [facility] Comment on above: Result Comment: Test ing performed on [employer] Dimension EXL analyzer using a modified kinetic Cecilio technique. Performed By: #### C BC, PBNP, ADIFF, GFR, ANEU, CMP #### [address] [address] Electrolyte Balance 5.0 mEq/L Normal 4.0-15.0 [facility] Comment on above: Performed By: #### C BC, PBNP, ADIFF, GFR, ANEU, CMP #### [address] [address] Globulin 3.8 G/dL Normal [facility] Comment on above: Performed By: #### C BC, PBNP, ADIFF, GFR, ANEU, CMP #### [address] [address] Glucose [Mass/Vol] 88 mg/dL Normal 83-110 [facility] Comment on above: Performed By: #### C BC, PBNP, ADIFF, GFR, ANEU, CMP #### [address] [address] Potassium [Moles/Vol] 4.7 mmol/L Normal 3.5-5.1 [facility] Comment on above: Performed By: #### C BC, PBNP, ADIFF, GFR, ANEU, CMP #### [address] [address] Sodium [Moles/Vol] 137 mmol/L Normal 136-145 [facility] Comment on above: Performed By: #### C BC, PBNP, ADIFF, GFR, ANEU, CMP #### [address] [address] Total Protein 6.7 G/dL Normal 6.4-8.2 [facility] Comment on above: Performed By: #### C BC, PBNP, ADIFF, GFR, ANEU, CMP #### [address] [address] Urea nitrogen [Mass/Vol] 22 mg/dL High 7-18 [facility] Comment on above: Performed By: #### C BC, PBNP, ADIFF, GFR, ANEU, CMP #### [place] [address] [place], [place] [address] LABORATORYOrdered By: SYSTEM SYSTEM on 10-06-2024 Albumin BCP dye [Mass/Vol] 2.9 G/dL Low 3.4 - 4.8 G/dL AO ADM SS Albumin/Globulin [Mass ratio] 0.8 {ratio} Low 1.1 - 2.5 ratio AO ADM SS ALP [Catalytic activity/Vol] 76 U/L Normal 40 - 135 U/L AO ADM SS ALT With P-5'-P [Catalytic activity/Vol] 19 U/L Normal 14 - 59 U/L AO ADM SS AST With P-5'-P [Catalytic activity/Vol] 16 U/L Normal 10 - 40 U/L AO ADM SS Basophils (Bld) [#/Vol] 0.0 103/mcL Normal 0.0 - 0.2 10^3/mcL AO Workflow SS Basophils/100 WBC (Bld) 0.4 % Normal 0.0 - 2.5 % AO Workflow SS Bilirubin [Mass/Vol] 0.5 mg/dL Normal 0.2 - 1 .0 mg/dL AO ADM SS Comment on above: Interpretive Data: U se of this assay is not recommended for patients undergoing treatment with eltrombopag due to the potential for falsely elevated results. Calcium [Mass/Vol] 9.7 mg/dL Normal 8.4 - 10. 2 mg/dL AO ADM SS Chloride [Moles/Vol] 100 mmol/L Normal 98 - 10 7 mmol/L AO ADM SS CO2 [Moles/Vol] 32 mmol/L High 23 - 31 mmol/L AO ADM SS Creatinine [Mass/Vol] 0.88 mg/dL Normal 0.55 - 1.02 mg/dL AO ADM SS Comment on above: Interpretive Data: T esting performed on [employer] Dimension EXL analyzer using a modified kinetic Cecilio technique. Electrolyte Balance 5.0 mEq/L Normal 4.0 - 15 .0 mEq/L AO ADM SS Eosinophil, Absolute 0.1 103/mcL Normal 0.0 - 0 .7 10^3/mcL AO Workflow SS Eosinophils/100 WBC (Bld) 1.3 % Normal 0.0 - 7.0 % AO Workflow SS Erythrocyte distribution width (RBC) [Ratio] 13.3 % Normal 11.5 - 15.5 % AO Workflow SS GFR/1.73 sq M.predicted among blacks MDRD (S/P/Bld) [Vol rate/Area] 74 ml/min/1.73sqm Invalid Interpretation Code AO Chemistry S Comment on above: Interpretive Data: GFR Population mean for , Non- Americans Ages 20-29 = 116 mL/min/1.73 sq.m. Ages 30-39 = 107 mL/min/1.73 sq.m. Ages 40-49 = 99 mL/min/1.73 sq.m. Ages 50-59 = 93 mL/min/1.73 sq.m. Ages 60-69 = 85 mL/min/1.73 sq.m. Ages 70+ = 75 mL/min/1.73 sq.m. Chronic Kidney Disease: Less than 60 mL/min/1.73 square meters End Stage Renal Disease: Less than 15 mL/min/1.73 square meters GFR/1.73 sq M.predicted among non-blacks MDRD (S/P/Bld) [Vol rate/Area] 61 ml/min/1.73sqm Invalid Interpretation Code AO Chemistry S Comment on above: Interpretive Data: GFR Population mean for , Non- Americans Ages 20-29 = 116 mL/min/1.73 sq.m. Ages 30-39 = 107 mL/min/1.73 sq.m. Ages 40-49 = 99 mL/min/1.73 sq.m. Ages 50-59 = 93 mL/min/1.73 sq.m. Ages 60-69 = 85 mL/min/1.73 sq.m. Ages 70+ = 75 mL/min/1.73 sq.m. Chronic Kidney Disease: Less than 60 mL/min/1.73 square meters End Stage Renal Disease: Less than 15 mL/min/1.73 square meters Globulin 3.8 G/dL Invalid Interpretation Code AO ADM SS Glucose [Mass/Vol] 88 mg/dL Normal 83 - 110 mg/dL AO ADM SS Hematocrit (Bld) [Volume fraction] 42.0 % Normal 34.0 - 46.0 % AO Workflow SS Hemoglobin (Bld) [Mass/Vol] 13.9 G/dL Normal 12.0 - 16.0 G/dL AO Workflow SS Lymphocytes (Bld) [#/Vol] 1.9 103/mcL Normal 0.9 - 4.3 10^3/mcL AO Workflow SS Lymphocytes/100 WBC (Bld) 20.0 % Normal 20.0 - 40.0 % AO Workflow SS MCH (RBC) [Entitic mass] 32.1 pg Normal 27.0 - 33.0 pg AO Workflow SS MCHC 33.2 G/dL Normal 32.0 - 36.0 G/dL AO Workflow SS MCV (RBC) [Entitic vol] 96.7 fL Normal 80.0 - 99.0 fL AO Workflow SS Monocytes (Bld) [#/Vol] 0.7 103/mcL Normal 0.1 - 1.4 10^3/mcL AO Workflow SS Monocytes/100 WBC (Bld) 8.0 % Normal 2.0 - 13.0 % AO Workflow SS Natriuretic peptide.B prohormone N-Terminal [Mass/Vol] 2431 pg/mL High 0 - 450 pg/mL AO ADM SS Comment on above: Interpretive Data: N T-proBNP results of less than 300 pg/mL effectively rules out acute congestive heart failure with 99% negative predictive value. Neutrophils (Bld) [#/Vol] 6.6 103/mcL Normal 2.3 - 8.1 10^3/mcL AO Workflow SS Neutrophils/100 WBC (Bld) 70.3 % Normal 50.0 - 75.0 % AO Workflow SS Platelet mean volume (Bld) [Entitic vol] 9.4 fL Normal 6.6 - 10.5 fL AO Workflow SS Platelets (Bld) [#/Vol] 311 103/mcL Normal 150 - 450 10^3/mcL AO Workflow SS Potassium [Moles/Vol] 4.7 mmol/L Normal 3.5 - 5.1 mmol/L AO ADM SS Protein [Mass/Vol] 6.7 G/dL Normal 6.4 - 8.2 G/dL AO ADM SS RBC (Bld) [#/Vol] 4.35 106/mcL Normal 4.10 - 5.30 10^6/mcL AO Workflow SS Sodium [Moles/Vol] 137 mmol/L Normal 136 - 145 mmol/L AO ADM SS Urea nitrogen [Mass/Vol] 22 mg/dL High 7 - 18 mg/dL AO ADM SS Urea nitrogen/Creatinine [Mass ratio] 25 ratio Normal 7 - 27 ratio AO ADM SS WBC (Bld) [#/Vol] 9.3 103/mcL Normal 4.5 - 10.8 10^3/mcL AO Workflow SS PBNPon 10-06-2024 Natriuretic peptide B (Bld) [Mass/Vol] 2431 pg/mL High 0-450 [facility] Comment on above: Result Comment: NT-p roBNP results of less than 300 pg/mL effectively rules out acute congestive heart failure with 99% negative predictive value. Performed By: #### C BC, PBNP, ADIFF, GFR, ANEU, CMP #### [facility] [address] [place], [place] [address] BASIC METABOLIC PANELon 11-2 Anion gap [Moles/Vol] 5 mmol/L Normal 3-13 [facility] Comment on above: Performed By: #### L [id number], [id number] #### Crystallographer: ESEQUIEL IRENE ([id number]) [facility] ([facility]) [address] [place] [address] Calcium [Mass/Vol] 8.4 mg/dL Normal 8.4-10.4 [facility] Comment on above: Performed By: #### L [id number], [id number] #### Crystallographer: ESEQUIEL IRENE ([id number]) [facility] ([facility]) [address] [place] [address] [place] Chloride [Moles/Vol] 104 mmol/L Normal 98-107 [facility] Comment on above: Performed By: #### L [id number], [id number] #### Crystallographer: ESEQUIEL IRENE ([id number]) [facility] ([facility]) [address] [place] [address] [place] CO2 [Moles/Vol] 28 mmol/L Normal 22-30 [facility] Comment on above: Performed By: #### L [id number], [id number] #### Crystallographer: ESEQUIEL IRENE ([id number]) [facility] ([facility]) [address] [place] [address] [place] Creatinine [Mass/Vol] 0.73 mg/dL Normal 0.52-1.04 [facility] Comment on above: Performed By: #### L [id number], [id number] #### Crystallographer: ESEQUIEL IRENE ([id number]) [facility] ([facility]) [address] [place] [address] GLOMERULAR FILTRATION RATE ML/MIN/1.73 SQ M.PREDICTED 81.2 mL/min/1.73m*2 Normal >60.0 [facility] Comment on above: Result Comment: Calc ulation based on the Chronic Kidney Disease Epidemiology Collaboration (CKD-EPI) equation refit without adjustment for race Performed By: #### L [id number], [id number] #### Crystallographer: ESEQUIEL IRENE ([id number]) [facility] ([facility]) [address] [place] [address] Glucose [Mass/Vol] 113 mg/dL High 70-100 [facility] Comment on above: Performed By: #### L [id number], [id number] #### Crystallographer: ESEQUIEL IRENE ([id number]) [facility] ([facility]) [address] [place] [address] Potassium [Moles/Vol] 4.3 mmol/L Normal 3.5-5.1 [facility] Comment on above: Performed By: #### L [id number], [id number] #### Crystallographer: ESEQUIEL IRENE ([id number]) [facility] ([facility]) [address] [place] [address] Sodium [Moles/Vol] 136 mmol/L Normal 135-145 [facility] Comment on above: Performed By: #### L [id number], [id number] #### Crystallographer: ESEQUIEL IRENE ([id number]) [facility] ([facility]) [address] [place] [address] Urea nitrogen [Mass/Vol] 16 mg/dL Normal 7-17 [facility] Comment on above: Performed By: #### L [id number], [id number] #### Crystallographer: ESEQUIEL IRENE ([id number]) [facility] ([facility]) [address] [place] [address] Basic metabolic 1998 panelon 09-30-2024 Anion gap [Moles/Vol] 5 mmol/L 3 - 13 mmol/L [facility] Calcium [Mass/Vol] 8.4 mg/dL 8.4 - 10. 4 mg/dL [facility] Chloride [Moles/Vol] 104 mmol/L 98 - 10 7 mmol/L [facility] CO2 [Moles/Vol] 28 mmol/L 22 - 30 mmol/L [facility] Creatinine [Mass/Vol] 0.73 mg/dL 0.52 - 1.04 mg/dL [facility] GFR/1.73 sq M.predicted (S/P/Bld) [Vol rate/Area] 81.2 mL/min - PINF [facility] Comment on above: Calculation based on the Chronic Kidney Disease Epidemiology Collaboration (CKD-EPI) equation refit without adjustment for race Glucose [Mass/Vol] 113 mg/dL High 70 - 100 mg/dL [facility] Interpretation and review of laboratory results Abnormal [facility] Potassium [Moles/Vol] 4.3 mmol/L 3.5 - 5.1 mmol/L [facility] Sodium [Moles/Vol] 136 mmol/L 135 - 145 mmol/L [facility] Urea nitrogen [Mass/Vol] 16 mg/dL 7 - 17 mg/dL [facility] CBC W Auto Differential pane l (Bld)on 09-30-2024 Basophils (Bld) [#/Vol] 0 10*3/uL 0.0 - 0.2 10*3/uL [facility] Basophils/100 WBC (Bld) 0.3 % 0.0 - 2.0 % [facility] Eosinophils (Bld) [#/Vol] 0.1 10*3/uL 0.0 - 0.5 10*3/uL [facility] Eosinophils/100 WBC (Bld) 0.6 % 0.0 - 6.0 % [facility] Erythrocyte distribution width (RBC) [Ratio] 12.6 % 11.5 - 15.0 % [facility] Hematocrit (Bld) [Volume fraction] 41.3 % 35.0 - 47.0 % [facility] Hemoglobin (Bld) [Mass/Vol] 13.2 g/dL 11.7 - 16.0 g/dL [facility] Immature granulocytes (Bld) [#/Vol] 0 10*3/uL NINF - 0.1 10*3/uL [facility] Immature granulocytes/100 WBC (Bld) 0.4 % 0.0 - 2.0 % [facility] Interpretation and review of laboratory results Abnormal [facility] Lymphocytes (Bld) [#/Vol] 1.1 10*3/uL 1.0 - 4.3 10*3/uL [facility] Lymphocytes/100 WBC (Bld) 10.8 % Low 15.0 - 45.0 % [facility] MCH (RBC) [Entitic mass] 31.5 pg 26.0 - 34.0 pg [facility] MCHC (RBC) [Mass/Vol] 32 % 30.5 - 36.0 % [facility] MCV (RBC) [Entitic vol] 98.6 fL 77.0 - 99.0 fL [facility] Monocytes (Bld) [#/Vol] 0.9 10*3/uL 0.0 - 0.9 10*3/uL [facility] Monocytes/100 WBC (Bld) 9.2 % 5.0 - 13.0 % [facility] Neutrophils (Bld) [#/Vol] 8 10*3/uL High 1.8 - 7.5 10*3/uL [facility] Neutrophils/100 WBC (Bld) 78.7 % 38.0 - 82.0 % [facility] Nucleated RBC/100 WBC (Bld) [Ratio] 0 % [facility] Platelet mean volume (Bld) [Entitic vol] 11.3 fL 9.0 - 12.7 fL [facility] Platelets (Bld) [#/Vol] 239 10*3/uL 140 - 440 10*3/uL [facility] RBC (Bld) [#/Vol] 4.19 10*6/uL 3.80 - 5.20 10*6/uL [facility] WBC (Bld) [#/Vol] 10.2 10*3/uL 3.6 - 10.7 10*3/uL [facility] CBC WITH AUTO DIFFERENTIALon 09-30-2024 Basophils (Bld) [#/Vol] 0.0 10*3/uL Normal 0.0-0.2 [facility] Comment on above: Performed By: #### L [id number] #### Crystallographer: ESEQUIEL IRENE ([id number]) [facility] ([facility]) [address] [place] [address] Basophils/100 WBC (Bld) 0.3 % Normal 0.0-2.0 [facility] Comment on above: Performed By: #### L [id number] #### Crystallographer: ESEQUIEL IRENE ([id number]) [facility]) [address] [place] [address] Eosinophils (Bld) [#/Vol] 0.1 10*3/uL Normal 0.0-0.5 [facility] Comment on above: Performed By: #### L [id number] #### Crystallographer: ESEQUIEL IRENE ([id number]) [facility] ([facility]) [address] [place] [address] Eosinophils/100 WBC (Bld) 0.6 % Normal 0.0-6.0 [facility] Comment on above: Performed By: #### L [id number] #### Crystallographer: ESEQUIEL IRENE ([id number]) [facility]) [address] [place] [address] Erythrocyte distribution width (RBC) [Ratio] 12.6 % Normal 11.5-15.0 [facility] Comment on above: Performed By: #### L [id number] #### Crystallographer: ESEQUIEL IRENE ([id number]) [facility]) [address] [place] [address] Hematocrit (Bld) [Volume fraction] 41.3 % Normal 35.0-47.0 [facility] Comment on above: Performed By: #### L [id number] #### Crystallographer: ESEQUIEL IRENE ([id number]) [facility]) [address] [place] [address] Hemoglobin (Bld) [Mass/Vol] 13.2 g/dL Normal 11.7-16.0 [facility] Comment on above: Performed By: #### L [id number] #### Crystallographer: ESEQUIEL IRENE ([id number]) [facility] ([facility]) [address] [place] [address] IMMATURE GRANS % 0.4 % Normal 0.0-2.0 [facility] Comment on above: Performed By: #### L [id number] #### Crystallographer: ESEQUIEL IRENE ([id number]) [facility]) [address] [place] [address] IMMATURE GRANS ABSOLUTE 0.0 10*3/uL Normal <0.1 [facility] Comment on above: Performed By: #### L [id number] #### Crystallographer: ESEQUIEL IRENE ([id number]) [facility]) [address] [place] [address] Lymphocytes (Bld) [#/Vol] 1.1 10*3/uL Normal 1.0-4.3 [facility] Comment on above: Performed By: #### L [id number] #### Crystallographer: ESEQUIEL IRENE ([id number]) [address] Lymphocytes/100 WBC (Bld) 10.8 % Low 15.0-45.0 [facility] Comment on above: Performed By: #### L [id number] #### Crystallographer: ESEQUIEL IRENE ([id number]) [facility]) [address] [place] [address] MCH (RBC) [Entitic mass] 31.5 pg Normal 26.0-34.0 [facility] Comment on above: Performed By: #### L [id number] #### Crystallographer: ESEQUIEL IRENE ([id number]) [address] MCHC 32.0 % Normal 30.5-36.0 [facility] Comment on above: Performed By: #### L [id number] #### Crystallographer: ESEQUIEL IRENE ([id number]) [address] MCV (RBC) [Entitic vol] 98.6 fL Normal 77.0-99.0 S [facility] Comment on above: Performed By: #### L [id number] #### Crystallographer: ESEQUIEL IRENE ([id number]) [facility] ([facility]) [address] [place] [address] Monocytes (Bld) [#/Vol] 0.9 10*3/uL Normal 0.0-0.9 [facility] Comment on above: Performed By: #### L [id number] #### Crystallographer: ESEQUIEL IRENE ([id number]) [facility] ([facility] [address] [place] [address] Monocytes/100 WBC (Bld) 9.2 % Normal 5.0-13.0 [facility] Comment on above: Performed By: #### L [id number] #### Crystallographer: ESEQUIEL IRENE ([id number]) [facility] ([facility]) [address] [place] [address] NEUTROPHILS ABSOLUTE 8.0 10*3/uL High 1.8-7.5 [facility] Comment on above: Performed By: #### L [id number] #### Crystallographer: ESEQUIEL IRENE ([id number]) [facility] ([facility]) [address] [place] [address] Neutrophils/100 WBC (Bld) 78.7 % Normal 38.0-82.0 [facility] Comment on above: Performed By: #### L [id number] #### Crystallographer: ESEQUIEL IRENE ([id number]) [facility] ([facility]) [address] [place] [address] NRBC 0.0 /100 WBCs Normal 0.0-2.0 [facility] Comment on above: Performed By: #### L [id number] #### Crystallographer: ESEQUIEL IRENE ([id number]) [facility] ([facility]) [address] [place] [address] Platelet mean volume (Bld) [Entitic vol] 11.3 fL Normal 9.0-12.7 [facility] Comment on above: Performed By: #### L [id number] #### Crystallographer: ESEQUIEL IRENE ([id number]) [facility] ([facility]) [address] [place] [address] [place] Platelets (Bld) [#/Vol] 239 10*3/uL Normal 140-440 [facility] Comment on above: Performed By: #### L [id number] #### Crystallographer: ESEQUIEL IRENE ([id number]) [facility] ([facility]) [address] [place] [address] RBC (Bld) [#/Vol] 4.19 10*6/uL Normal 3.80-5.20 [facility] Comment on above: Performed By: #### L [id number] #### Crystallographer: ESEQUIEL IRENE ([id number]) [facility] ([facility] [address] [place] [address] WBC (Bld) [#/Vol] 10.2 10*3/uL Normal 3.6-10.7 [facility] Comment on above: Performed By: #### L [id number] #### Crystallographer: ESEQUIEL IRENE ([id number]) [facility] ([facility]) [address] [place] [address] CT CERVICAL SPINE WO IV CONT [facility] 09-30-2024 CT CERVICAL SPINE WO IV CONTRAST Patient Name: HENRY DEGROOT : 1940 Exam Date/Time: 09/30/2024 13:39 Procedure: CT CERVICAL SPINE WO IV CONTRAST Ordering Provider: MILLER KEVIN Reason For Exam: trauma Examination: CT cervical spine Clinical Indication: trauma Comparison: None Findings: Serial axial [address] images were obtained from the skull base through the cervical spine without intravenous contrast. Sagittal, axial, and coronal images were then reconstructed. Dose reduction was employed with automated exposure control. Normal bone mineralization. No evidence of fracture. The cervical spine demonstrates minimal anterolisthesis C3-C4 and C4-C5. Straightening of the typical lordosis. There is gross preservation of vertebral heights. Prevertebral soft tissues are within normal limits. There is significant moderate to advanced disc height loss C5-C6 and C6-C7. Endplate degenerative sclerosis and osteophytes more pronounced at these levels. There is mild facet degenerative sclerosis and hypertrophy. More moderate sclerosis and osteoarthropathy left sided facets C3-C4. Ligamentum nuchae calcification posterior to the C5 spinous process. No spinal canal stenosis. There is moderate left neuroforaminal narrowing C3-C4. There is [id number] left and moderate right carotid artery atherosclerotic calcification near the proximal internal carotid arteries. Screening examination of the lung apices demonstrates no apical pneumothorax. There is some pleural thickening in the lung apices. IMPRESSION: Impression: 1. Mild spondylolisthesis C3-C4 and C4-C5. 2. Moderate cervical spondylosis as above. Moderate left neuroforaminal narrowing C3-C4. 3. Atherosclerosis proximal cervical internal carotid arteries moderate in severity on the right. Report Dictated on Electronically Signed By: Xander Sterling MD Electronically Signed Date/Time: 09/30/2024 2:[address] [facility] [address] Cervical spine WO contras ton 09-30-2024 Impression: 1. Mild spondylolisthesis C3-C4 and C4-C5. 2. Moderate cervical spondylosis as above. Moderate left neuroforaminal narrowing C3-C4. 3. Atherosclerosis proximal cervical internal carotid arteries moderate in severity on the right. Report Dictated on Electronically Signed By: Xander Sterling MD Electronically Signed Date/Time: 09/30/2024 2:08 PM [facility] 1940 [id number] Exam Date/Time: 09/30/2024 13:39 Procedure: CT CERVICAL SPINE WO IV CONTRAST Ordering Provider: MILLER KEVIN Reason For Exam: trauma Examination: CT cervical spine Clinical Indication: trauma Comparison: None Findings: Serial axial [address] images were obtained from the skull base through the cervical spine without intravenous contrast. Sagittal, axial, and coronal images were then reconstructed. Dose reduction was employed with automated exposure control. Normal bone mineralization. No evidence of fracture. The cervical spine demonstrates minimal anterolisthesis C3-C4 and C4-C5. Straightening of the typical lordosis. There is gross preservation of vertebral heights. Prevertebral soft tissues are within normal limits. There is significant moderate to advanced disc height loss C5-C6 and C6-C7. Endplate degenerative sclerosis and osteophytes more pronounced at these levels. There is mild facet degenerative sclerosis and hypertrophy. More moderate sclerosis and osteoarthropathy left sided facets C3-C4. Ligamentum nuchae calcification posterior to the C5 spinous process. No spinal canal stenosis. There is moderate left neuroforaminal narrowing C3-C4. There is todb-[id number] left and moderate right carotid artery atherosclerotic calcification near the proximal internal carotid arteries. Screening examination of the lung apices demonstrates no apical pneumothorax. There is some pleural thickening in the lung apices. [facility] Xander Sterling MD - 09/30/2024 [facility] Name: [facility]GR[facility] 1940 [id number] Exam Date/Time: 09/30/2024 13:39 Procedure: CT CERVICAL SPINE WO IV CONTRAST Ordering Provider: MILLER KEVIN Reason For Exam: trauma Examination: CT cervical spine Clinical Indication: trauma Comparison: None Findings: Serial axial [address] images were obtained from the skull base through the cervical spine without intravenous contrast. Sagittal, axial, and coronal images were then reconstructed. Dose reduction was employed with automated exposure control. Normal bone mineralization. No evidence of fracture. The cervical spine demonstrates minimal anterolisthesis C3-C4 and C4-C5. Straightening of the typical lordosis. There is gross preservation of vertebral heights. Prevertebral soft tissues are within normal limits. There is significant moderate to advanced disc height loss C5-C6 and C6-C7. Endplate degenerative sclerosis and osteophytes more pronounced at these levels. There is mild facet degenerative sclerosis and hypertrophy. More moderate sclerosis and osteoarthropathy left sided facets C3-C4. Ligamentum nuchae calcification posterior to the C5 spinous process. No spinal canal stenosis. There is moderate left neuroforaminal narrowing C3-C4. There is [id number] left and moderate right carotid artery atherosclerotic calcification near the proximal internal carotid arteries. Screening examination of the lung apices demonstrates no apical pneumothorax. There is some pleural thickening in the lung apices. IMPRESSION: Impression: 1. Mild spondylolisthesis C3-C4 and C4-C5. 2. Moderate cervical spondylosis as above. Moderate left neuroforaminal narrowing C3-C4. 3. Atherosclerosis proximal cervical internal carotid arteries moderate in severity on the right. Report Dictated on Electronically Signed By: Xander Sterling MD Electronically Signed Date/Time: 09/30/2024 2:08 PM [facility] CT HEAD WO IV CONTRASTon CT HEAD WO IV CONTRAST Patient Name: [facility]ENRY LAWSON : 1940 [id number] Exam Date/Time: 09/30/2024 13:39 Procedure: CT HEAD WO IV CONTRAST Ordering Provider: MILLER KEVIN Reason For Exam: trauma Examination: CT Head Clinical Information: trauma Comparison: 04/12/2018 Findings: Serial axial [address] images were obtained through the skull without intravenous contrast. Coronal, sagittal, and axial images were reconstructed. Dose reduction was employed with automated exposure control. The ventricular system and cortical sulci are somewhat prominent in size consistent with moderate to advanced cerebral volume loss. There is extensive parenchymal volume loss and leukoencephalomalacia right frontal, temporal and parietal region and left frontal and occipital region. 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 This has evolved from the comparison examination on the right, acute 2018. This is new within the left frontal and left occipital regions from comparison exam. There is advanced subcortical and periventricular white matter hypodensity which is nonspecific and may represent chronic small vessel ischemic disease in a patient of this age. There is no evidence of gross mass, hemorrhage or edema. No areas of mass-effect or definite acute infarct are seen. Sinuses appear well pneumatized. Atherosclerotic calcifications carotid siphons and vertebral arteries. Density changes ocular lenses consistent with lens surgery/cataracts. There is a small right-sided parietal scalp contusion, hematoma. IMPRESSION: Impression: 1. Advanced cerebral volume loss and white matter changes likely representing chronic small vessel ischemic disease in a patient of this age. Remote appearing sizable cortical infarcts right frontal, parietal and occipital lobe and left frontal and occipital lobe. No evidence of acute intracranial hemorrhage or other acute process. If concern for acute on chronic ischemia, MRI could be obtained for more sensitive evaluation. 2. Right-sided parietal scalp contusion/hematoma. Report Dictated on Electronically Signed By: Xander Sterling MD Electronically Signed Date/Time: 09/30/2024 2:03 PM EST Normal [facility] CT Head WO contraston 2023 Impression: 1. Advanced cerebral volume loss and white matter changes likely representing chronic small vessel ischemic disease in a patient of this age. Remote appearing sizable cortical infarcts right frontal, parietal and occipital lobe and left frontal and occipital lobe. No evidence of acute intracranial hemorrhage or other acute process. If concern for acute on chronic ischemia, MRI could be obtained for more sensitive evaluation. 2. Right-sided parietal scalp contusion/hematoma. Report Dictated on Electronically Signed By: Xander Sterling MD Electronically Signed Date/Time: 09/30/2024 2:03 PM EST [facility] Patient Name: [facility]GRO[facility] 1940 [id number] Exam Date/Time: 09/30/2024 13:39 Procedure: CT HEAD WO IV CONTRAST Ordering Provider: MILLER KEVIN Reason For Exam: trauma Examination: CT Head Clinical Information: trauma Comparison: 04/12/2018 Findings: Serial axial [address] images were obtained through the skull without intravenous contrast. Coronal, sagittal, and axial images were reconstructed. Dose reduction was employed with automated exposure control. The ventricular system and cortical sulci are somewhat prominent in size consistent with moderate to advanced cerebral volume loss. There is extensive parenchymal volume loss and leukoencephalomalacia right frontal, temporal and parietal region and left frontal and occipital region. 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 This has evolved from the comparison examination on the right, acute 2018. This is new within the left frontal and left occipital regions from comparison exam. There is advanced subcortical and periventricular white matter hypodensity which is nonspecific and may represent chronic small vessel ischemic disease in a patient of this age. There is no evidence of gross mass, hemorrhage or edema. No areas of mass-effect or definite acute infarct are seen. Sinuses appear well pneumatized. Atherosclerotic calcifications carotid siphons and vertebral arteries. Density changes ocular lenses consistent with lens surgery/cataracts. There is a small right-sided parietal scalp contusion, hematoma. [facility] Xander Sterling MD - 09/30/2024 Patient Name: HENRY [facility]GROOT : 1940 [id number] Exam Date/Time: 09/30/2024 13:39 Procedure: CT HEAD WO IV CONTRAST Ordering Provider: MILLER KEVIN Reason For Exam: trauma Examination: CT Head Clinical Information: trauma Comparison: 04/12/2018 Findings: Serial axial [address] images were obtained through the skull without intravenous contrast. Coronal, sagittal, and axial images were reconstructed. Dose reduction was employed with automated exposure control. The ventricular system and cortical sulci are somewhat prominent in size consistent with moderate to advanced cerebral volume loss. There is extensive parenchymal volume loss and leukoencephalomalacia right frontal, temporal and parietal region and left frontal and occipital region. 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 This has evolved from the comparison examination on the right, acute 2017. This is new within the left frontal and left occipital regions from comparison exam. There is advanced subcortical and periventricular white matter hypodensity which is nonspecific and may represent chronic small vessel ischemic disease in a patient of this age. There is no evidence of gross mass, hemorrhage or edema. No areas of mass-effect or definite acute infarct are seen. Sinuses appear well pneumatized. Atherosclerotic calcifications carotid siphons and vertebral arteries. Density changes ocular lenses consistent with lens surgery/cataracts. There is a small right-sided parietal scalp contusion, hematoma. IMPRESSION: Impression: 1. Advanced cerebral volume loss and white matter changes likely representing chronic small vessel ischemic disease in a patient of this age. Remote appearing sizable cortical infarcts right frontal, parietal and occipital lobe and left frontal and occipital lobe. No evidence of acute intracranial hemorrhage or other acute process. If concern for acute on chronic ischemia, MRI could be obtained for more sensitive evaluation. 2. Right-sided parietal scalp contusion/hematoma. Report Dictated on Electronically Signed By: Xander Sterling MD Electronically Signed Date/Time: 09/30/2024 2:[address] Head WO contrastOrdered B y: Xander Sterling on 09-30-2024 [facility] Work Phone: ECG 12-LEADon 09-30-2024 ECG 12-LEAD IMPRESSION: Sinus rhythm Normal [place] Low voltage, precordial leads Electronically Signed On 09-30-2024 15:23:50 EST by Toi Miller [facility] ED Provider Noteon ED Provider Note I did not participat e in the care of this patient Linus Fuchs MD 10/02/24 0043 [facility] ED Provider Note Emergency Department Encounter [facility] EMERGENCY DEPT Patient: Henry Degroot : 1940 Date of Evaluation: 09/30/2024 ED Supervising Physician: Toi Miller MD I personally evaluated Henry Degroot and made/approved the management plan and take responsibility for the patient management. This will serve as my Supervisory note and shared attestation. I did perform a substantive portion of the visit including all aspects of the Medical Decision Making. I wore appropriate PPE for the entirety of this encounter. In brief, Henry Degroot is a 84 y.o. that presents to the emergency department for evaluation of a near fainting episode after having a bowel movement. States she nearly fell from standing but did not suffer any specific injury. She felt lightheaded. Denies room spinning dizziness or vertigo. Denies weakness numbness tingling of her extremities Focused exam: She is awake and alert. Afebrile. Nontoxic. Patient has a small area of bruising in the right parietal occipital area of her head. Lungs clear to auscultation bilaterally. Heart regular rate and rhythm. Abdomen soft nondistended without focal tenderness. No cervical spine tenderness. Neurologic exam has no gross motor or sensory deficits in all 4 extremities. NIH stroke scale is 0. EKG: Normal sinus rhythm. Rate of 80. Normal axis. No ST segment elevation. No STEMI morphology change. Previous of 04/12/2018. Today's EKG interpreted by this examiner. CT Head shows no acute intracranial hemorrhage. Interpreted by this examiner. X-ray of the pelvis shows no acute fracture or dislocation. Interpreted by this examiner. Brief ED course/MDM: Patient with near syncopal episode where she fell and hit her head. No intracranial hemorrhage. NIH is 0. Do not suspect stroke. I do feel she can follow-up as an outpatient. Return if worse or new symptoms or problems. Diagnostics interpreted by me: Xray(s) chest x-ray as above CT scan(s) head as above EKG; see my interpretation elsewhere in the chart All diagnostic, treatment, and disposition decisions were made by myself in conjunction with the Resident. I also supervised goff portions of any procedures performed by the Resident. For all further details of the patient's emergency department visit, please see their documentation. (Comment: Please note this report has been produced using speech recognition software and may contain errors related to that system including errors in grammar, punctuation, and spelling, as well as words and phrases that may be inappropriate. If there are any questions or concerns please feel free to contact the dictating provider for clarification.) Toi Miller MD Acute Care [facility] Toi Miller MD 09/30/24 1524 [facility] ED Provider Note EMERGENCY DEPARTMENT ENCOUNTER Pt Name: Henry Degroot Birthdate 1940 Date of evaluation: 09/30/2024 ED Provider: Anthony Richey MD CHIEF COMPLAINT Chief Complaint Patient presents with Fall Pt reports fall from standing after severe dizziness. Pt awake and alert x4 at this time. Pt denies LOC/hit head. Skin injuryto R hand. HISTORY OF PRESENT ILLNESS (Location/Symptom, Timing/Onset, Context/Setting, Quality, Duration, Modifying Factors, Severity) Note limiting factors. I wore appropriate PPE for the entirety of this encounter. HPI Henry Degroot is a 84 y.o. who presents to the emergency department for evaluation of syncope and ground level fall. Pt got up from toilet took several steps and got dz and hot and fell to the ground. Was not on ground for long time, maybe 5 mins from further history by daughter at bedside. Denies all complaints at this time. Nursing Notes were reviewed. REVIEW OF SYSTEMS Review of Systems All other systems reviewed and are negative. Pertinent positives and negatives as per HPI. PAST MEDICAL HISTORY Past Medical History: Diagnosis Date Atrial fibrillation (HCC) Cancer (CMS/HCC) (HCC) Cerebral artery occlusion with cerebral infarction (HCC) Headache Hyperlipidemia Hypertension SURGICAL HISTORY No past surgical history on file. CURRENT MEDICATIONS There are no discharge medications for this patient. ALLERGIES Patient has no known allergies. FAMILY HISTORY No family history on file. SOCIAL HISTORY Social History Socioeconomic History Marital status: Single Tobacco Use Smoking status: Never SCREENINGS PHYSICAL EXAM ED Triage Vitals Temp Heart Rate Resp BP 09/30/24 1251 09/30/24 1251 09/30/24 1251 09/30/24 1251 36.7 ?C (98.1 ?F) 87 16 106/57 SpO2 Temp Source Heart Rate Source Patient Position 09/30/24 1251 09/30/24 1251 09/30/24 1251 09/30/24 1544 98 % Oral Monitor Lying BP Location FiO2 (%) 09/30/24 1544 -- Left arm Physical Exam Vitals and nursing note reviewed. Constitutional: General: She is not in acute distress. Appearance: She is well-developed. HENT: Head: Normocephalic and atraumatic. Nose: Nose normal. Mouth/Throat: Mouth: Mucous membranes are moist. Eyes: Extraocular Movements: Extraocular movements intact. Conjunctiva/sclera: Conjunctivae normal. Pupils: Pupils are equal, round, and reactive to light. Cardiovascular: Rate and Rhythm: Normal rate and regular rhythm. Pulses: Normal pulses. Heart sounds: Normal heart sounds. No murmur heard. Pulmonary: Effort: Pulmonary effort is normal. No respiratory distress. Breath sounds: Normal breath sounds. Abdominal: Palpations: Abdomen is soft. Tenderness: There is no abdominal tenderness. Musculoskeletal: General: No swelling or tenderness. Cervical back: Neck supple. Skin: General: Skin is warm and dry. Capillary Refill: Capillary refill takes less than 2 seconds. Coloration: Skin is not jaundiced. Neurological: General: No focal deficit present. Mental Status: She is alert and oriented to person, place, and time. Mental status is at baseline. Cranial Nerves: No cranial nerve deficit. Sensory: No sensory deficit. Psychiatric: Mood and Affect: Mood normal. DIAGNOSTIC RESULTS RADIOLOGY (Per Emergency Physician): Interpretation per the Radiologist below, if available at the time of this note: XR pelvis 1 or 2 views Final Result Impression: No evidence of fracture or subluxation of the pelvis. Report Dictated on Electronically Signed By: Xander Sterling MD Electronically Signed Date/Time: 09/30/2024 2:10 PM EST XR hand 1 or 2 views right Final Result No acute fracture or dislocation of the right hand. Moderate degenerative changes involving the CMC joint and PIP joints. Report Dictated on Electronically Signed By: Raquel Clark MD Electronically Signed Date/Time: 09/30/2024 2:[address] head wo IV contrast Final Result Impression: 1. Advanced cerebral volume loss and white matter changes likely representing chronic small vessel ischemic disease in a patient of this age. Remote appearing sizable cortical infarcts right frontal, parietal and occipital lobe and left frontal and occipital lobe. No evidence of acute intracranial hemorrhage or other acute process. If concern for acute on chronic ischemia, MRI could be obtained for more sensitive evaluation. 2. Right-sided parietal scalp contusion/hematoma. Report Dictated on Electronically Signed By: Xander Sterling MD Electronically Signed Date/Time: 09/30/2024 2:[address] cervical spine wo IV contrast Final Result Impression: 1. Mild spondylolisthesis C3-C4 and C4-C5. 2. Moderate cervical spondylosis as above. Moderate left neuroforaminal narrowing C3-C4. 3. Atherosclerosis proximal cervical internal (more content not included)... Normal [facility] - Chemistry and C hemistry - challengeon 09-30-2024 Troponin I.cardiac [Mass/Vol] ng/mL NINF - 0.034 ng/mL [facility] No Panel Informationon 09-30 P [place] 54 degrees [facility] MS Interval 184 ms [facility] QRS [place] 18 degrees [facility] QRSD Interval 78 ms [facility] QT Interval 382 ms [facility] QTC Interval 441 ms [facility] T Wave [place] 9 degrees [facility] Sinus rhythm Normal [place] Low voltage, precordial leads Electronically Signed On 09-30-2024 15:23:50 EST by Toi Albrecht MD - 09/30/2024 IMPRESSION: Sinus rhythm Normal [place] Low voltage, precordial leads Electronically Signed On 09-30-2024 15:23:50 EST by Toi Miller [facility] Radiology Study observation (narrative) [facility] alth TROPONIN, WITH SERIAL REFLEX on 09-30-2024 Troponin I.cardiac [Mass/Vol] ng/mL Normal <0.034 [facility] Comment on above: Result Comment: ORDE R COMMENTS: Patients with high levels of Biotin oral intake (ie >5 mg/day) may have falsely decreased Troponin levels. Performed By: #### L [id number], [id number] #### Crystallographer: ESEQUIEL IRENE ([id number]) [facility] ([facility]) [address] [place] [address] Troponin I.cardiac [Mass/Vol ]on 09-30-2024 Interpretation and review of laboratory results Normal [facility] Patients with high levels of Biotin oral intake (ie >5 mg/day) may have falsely decreased Troponin levels. [facility] Vital signson 09-30-2024 Heart rate 80 /min bpm [facility] XR Hand - right 2 Viewson No acute fracture or dislocation of the right hand. Moderate degenerative changes involving the CMC joint and PIP joints. Report Dictated on Electronically Signed By: Raquel Clark MD Electronically Signed Date/Time: 09/30/2024 2:09 PM EST [facility] Patient Name: HENRY DEGROOT : 1940 Exam Date/Time: 09/30/2024 13:58 Procedure: XR HAND 1-2 VIEWS RIGHT Ordering Provider: MILLER KEVIN Reason For Exam: trauma Clinical indication: Trauma to hand. COMPARISON: None. TECHNIQUE: AP and lateral radiographs were obtained of the right hand. FINDINGS: Two views of the right hand shows no acute fracture or dislocation. There are moderate degenerative changes involving the CMC joint as well as the PIP joints. Alignment is anatomic. Bones are mildly osteopenic. The soft tissues are unremarkable. [facility] Albina Clark MD - 09/30/2024 Patient Name: HENRY DEGROOT : 1940 Exam Date/Time: 09/30/2024 13:58 Procedure: XR HAND 1-2 VIEWS RIGHT Ordering Provider: MILLER KEVIN Reason For Exam: trauma Clinical indication: Trauma to hand. COMPARISON: None. TECHNIQUE: AP and lateral radiographs were obtained of the right hand. FINDINGS: Two views of the right hand shows no acute fracture or dislocation. There are moderate degenerative changes involving the CMC joint as well as the PIP joints. Alignment is anatomic. Bones are mildly osteopenic. The soft tissues are unremarkable. IMPRESSION: No acute fracture or dislocation of the right hand. Moderate degenerative changes involving the CMC joint and PIP joints. Report Dictated on Electronically Signed By: Raquel Clark MD Electronically Signed Date/Time: 09/30/2024 2:09 PM EST [facility] Radiology Study observation (narrative) [facility] alth XR Hand - right 2 ViewsOrder ed By: Albina Clark on 09-30-2024 [facility] [employer] Work Phone: XR Pelvis 1 or 2 Viewson Impression: No evidence of fracture or subluxation of the pelvis. Report Dictated on Electronically Signed By: Xander Sterling MD Electronically Signed Date/Time: 09/30/2024 2:10 PM [facility] [employer] [facility] Patient Name: HENRY DEGROOT : 1940 Exam Date/Time: 09/30/2024 14:01 Procedure: XR PELVIS 1-2 VIEWS Ordering Provider: MILLER KEVIN Reason For Exam: trauma Examination: Pelvis Clinical Indication: trauma Comparison: None Findings: Single AP view of the pelvis demonstrates no cortical or trabecular irregularity to suggest a fracture. Normal bone mineralization. Bones appear grossly normal anatomic alignment. There is mild hip joint space narrowing and osteoarthropathy. Mild degenerative sclerosis at the pubis. Enthesophyte seen along the iliac wings slightly larger on the left. There is oybw-zs-pgwaaaob lower lumbar spondylosis. [facility] Xander Sterling MD - 09/30/2024 Patient Name: HENRY DEGROOT : 1940 Exam Date/Time: 09/30/2024 14:01 Procedure: XR PELVIS 1-2 VIEWS Ordering Provider: MILLER KEVIN Reason For Exam: trauma Examination: Pelvis Clinical Indication: trauma Comparison: None Findings: Single AP view of the pelvis demonstrates no cortical or trabecular irregularity to suggest a fracture. Normal bone mineralization. Bones appear grossly normal anatomic alignment. There is mild hip joint space narrowing and osteoarthropathy. Mild degenerative sclerosis at the pubis. Enthesophyte seen along the iliac wings slightly larger on the left. There is skrv-hv-xvlsoalj lower lumbar spondylosis. IMPRESSION: Impression: No evidence of fracture or subluxation of the pelvis. Report Dictated on Electronically Signed By: Xander Sterling MD Electronically Signed Date/Time: 09/30/2024 2:10 PM [facility] [employer] [facility] Radiology Study observation (narrative) [facility] Cardiology Visit Reporton Cardiology Visit Report [facility] [address] [place] [address]. [address] [place] [address] OFFICE VISIT Date of Service: 09/21/24 MR#: [id number] Acct: [id number] Name: HENRY DEGROOT Wendy Rep #: [id number] : 1940 Provider: REHANA villanueva Age/Sex: 84/F [place] [facility] Status: Signed HPI HPI History of Present Illness Details: This is an 84-year-old white female who presents to the office today for a cardiovascular follow-up visit. She has a history of paroxysmal atrial fibrillation and previous CVA. She presents to the office in a wheel chair. She states she had an episode of atrial fibrillation in November 2023, and presented to the emergency room. She states she was given IV Cardizem, and converted back to NSR. She was evaluated for her syncopal episode in the hospital in July 2024. During her hospitalization she was noted to have atrial fibrillation RVR along with an 8-second pause during sleep. She denies chest, arm, jaw, or neck discomfort. She denies palpitations. She denies bilateral lower extremity edema. She denies claudication. She states occasional, shortness of breath with activity. She denies shortness of breath at rest, orthopnea, or PND. She denies chronic cough. She denies significant, sudden weight gain. She denies lightheadedness, dizziness, or near-syncope. She states syncope in July 2024 when she was in the shower. She denies blood in urine, blood in stool, or epistaxis. He denies fever with chills. She denies myalgia. She denies fatigue. Her exercise level has remained stable. 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 Accompanied by: Daughter Is patient in pain?: No Allergies No Known Allergies Allergy (Verified 09/21/24 09:30) Medications ???Medication ???Instructions ???Recorded ???Confirmed ???Type vit C 250 mg-vit E 90 mg-zinc 40 1 ea PO BID eye vitamin 05/07/18 09/21/24 History mg-copper 1 dj-iqyxfy-kbuwbw capsule apixaban 5 mg tablet 5 mg PO BID blood thinner #180 tabs 12/04/19 09/21/24 Rx pravastatin 10 mg tablet 10 mg PO QODAY CHOLESTEROL 01/12/21 09/21/24 History calcium carb 133 mg-vitD3 133 1 cap PO DAILY Supplement 02/08/22 09/21/24 History unit-mag amino acid chelate 67mg capsule (Coral Calcium) duloxetine 30 mg capsule,delayed 30 mg PO BID Depression 02/08/22 09/21/24 History release (Cymbalta) denosumab 60 mg/mL subcutaneous 60 mg subcut [id number] Osteoporosis 05/02/23 09/21/24 History syringe (Prolia) metoprolol succinate 25 mg 12.5 mg (1/2 x 25 mg) PO DAILY 01/16/24 09/21/24 Rx tablet,extended release 24 hr blood pressure #45 tabs levetiracetam 250 mg tablet 250 mg PO DAILY Seizures 07/10/24 09/21/24 History acetaminophen 500 mg tablet 1,000 mg (2 x 500 mg) PO Q6H PRN 07/30/24 09/21/24 Rx PRN Pain Score 1-10 #0 tabs apple cider vinegar 500 mg tablet mg PO 09/21/24 09/21/24 History cholecalciferol (vitamin D3) 125 125 mcg PO QDAY 09/21/24 09/21/24 History mcg (5,000 unit) tablet cyanocobalamin (vitamin B-12) 1,000 mcg PO QDAY 09/21/24 09/21/24 History 1,000 mcg tablet levetiracetam 250 mg tablet 500 mg PO QPM 09/21/24 09/21/24 History omega-3 fatty acids-fish oil 435 cap PO 09/21/24 09/21/24 History mg-880 mg capsule (Fish Oil Extra Strength) pegcetacoplan (PF) 15 mg/0.1 mL 15 mg intravitreal [id number] Eyes 09/21/24 09/21/24 History intravitreal solution (Syfovre (PF)) Ejection fraction %: 55 (55-60) Have you fallen in the past year?: Yes (July 05, passed out and fell) [facility] Medical History (Updated 09/21/24 @ 09:55 by Tai Krishna CERTIFIED ART THERAPIST, CERTIFIED ART THERAPIST-C) History of fall Wears hearing aid Wears glasses Cancer Depression Walker as ambulation aid Arthritis UTI (urinary tract infection) Loss of consciousness Difficulty swallowing Blood in stool History of diverticulitis Non-smoker CPAP (continuous positive airway pressure) dependence Leg cramps History of pain when walking History of edema Hypertension History of echocardiogram Cardiology follow-up encounter Seizure Paroxysmal atrial fibrillation Macular degeneration Left hemiparesis Cerebrovascular disease Gammopathy 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 Snoring Acute right MCA stroke (02/08/16) Obesity (BMI 30.0-34.9) Surgical History History of laser refractive surgery S/P laser cataract surgery History of bilateral cataract extraction History of colonoscopy History of total mastectomy of right breast (more content not included)... Normal [facility] MA MAMMOGRAM SCREENING LEFT W/Mehrdad 03-17-2024 MA MAMMOGRAM SCREENING LEFT W/RICHARD [facility] [address] [place], [place] [address] PROCEDURE FOR: HENRY DEGROOT [address] [place] [address] Home: PID#: [id number] Exam#: [id number] : 1940 Age: 83 TO: ИВАН LOPEZ DO [address] [address] Fax: NO FAX EXAMINATION: SCREENING DIGITAL LEFT MAMMOGRAM WITH TOMOSYNTHESIS, 03/17/2024 10:10 am TECHNIQUE: Screening mammography of the left breast was performed with tomosynthesis. 2D standard and 3D tomosynthesis combination imaging performed through the left breast in the MLO and CC projection. Computer aided detection was utilized in the interpretation of this exam. COMPARISON: Screening mammogram 10/23/2021, screening mammogram 06/26/2018, screening mammogram 06/25/2018 HISTORY: Breast cancer screening. FINDINGS: BREAST DENSITY: Scattered fibroglandular tissue There are postoperative changes of the left breast. There are benign appearing calcifications as well as a biopsy clip within the left breast. There are no significant masses or calcifications. IMPRESSION: No mammographic evidence of malignancy. Continued screening with annual mammograms is recommended. Tyrer Cuzick risk calculations do not apply for this patient. I have personally reviewed the images of this examination and agree with the resident's findings and interpretation. BIRADS: MAMMOGRAM BI-RADS: 2: Benign finding RECALL: 1 year screening RECALL TYPE: mammo LETTER SENT: Normal BI-RADS 1 and 2 Interpreted by: Maico Lema MD Preliminary Report By: Yamel Pierre Electronically signed By Maico Lema MD Dictated Date: 03/17/2024 3:22:32 PM Prelim Date: 03/17/2024 5:47:44 PM Sign Date: 03/17/2024 5:47:44 PM Ordering Provider: ИВАН LOPEZ Bridge Game Director: JUAN CARLOS SPRAGUE (Urszula)(M) letter sent: Normal BI-RADS 1 and 2 Mammogram BI-RADS: 2 Benign Normal [facility] ([place] LABORATORYOrdered By: Chichi Parra on 03-04-2024 Albumin DL <= 20 mg/L (U) [Mass/Vol] 263 mcg/dL Invalid Interpretation Code AO ADM SS Albumin/Creatinine DL <= 20 mg/L (U) [Mass ratio] 2 mcg/mg Normal 0 - 30 mcg/mg AO ADM SS Creatinine (U) [Mass/Vol] 106.0 mg/dL Normal 28.0 - 117.0 mg/dL AO ADM SS MALBRon 03-04-2024 U Creatinine 106.0 mg/dL Normal 28.0-117.0 [facility] ([place] Comment on above: Performed By: #### M ALBR #### [address] [address] U Microalb 263 mcg/dL Normal [facility] ([place] Comment on above: Performed By: #### M ALBR #### [address] [address] U Ratio Alb/Cre 2 mcg/mg Normal 0-30 [facility] ([place] Comment on above: Performed By: #### M ALBR #### [address] [address] .Auto Diffon 02-04-2024 Basophil, Absolute 0.0 10 3/mcL Normal 0.0-0.2 [facility] [place] Comment on above: Performed By: #### V IDH, LIPID, GFR, CMP, CBC, ANEU, TSH, ADIFF #### [address] [address] Basophils/100 WBC (Bld) 0.5 % Normal 0.0-2.5 A [facility] ([place] Comment on above: Performed By: #### V IDH, LIPID, GFR, CMP, CBC, ANEU, TSH, ADIFF #### [address] [address] Eosinophil, Absolute 0.1 10 3/mcL Normal 0.0-0.4 [facility] ([place] Comment on above: Performed By: #### V IDH, LIPID, GFR, CMP, CBC, ANEU, TSH, ADIFF #### [address] [address] Eosinophils/100 WBC (Bld) 2.0 % Normal 0.0-7.0 [facility] ([place] Comment on above: Performed By: #### V IDH, LIPID, GFR, CMP, CBC, ANEU, TSH, ADIFF #### [address] [address] Lymphocyte, Absolute 1.9 10 3/mcL Normal 0.8-3.9 [facility] ([place] Comment on above: Performed By: #### V IDH, LIPID, GFR, CMP, CBC, ANEU, TSH, ADIFF #### [address] [address] Lymphocytes/100 WBC (Bld) 25.7 % Normal 10.0-50.0 [facility] ([place] Comment on above: Performed By: #### V IDH, LIPID, GFR, CMP, CBC, ANEU, TSH, ADIFF #### [address] [address] Monocyte, Absolute 0.7 10 3/mcL Normal 0.2-1.0 [facility] [place] Comment on above: Performed By: #### V IDH, LIPID, GFR, CMP, CBC, ANEU, TSH, ADIFF #### [address] [address] Monocytes/100 WBC (Bld) 9.5 % Normal 1.7-13.0 A [facility] ([place] Comment on above: Performed By: #### V IDH, LIPID, GFR, CMP, CBC, ANEU, TSH, ADIFF #### [address] [address] Neutrophils/100 WBC (Bld) 62.3 % Normal 37.0-80.0 [facility] ([place] Comment on above: Performed By: #### V IDH, LIPID, GFR, CMP, CBC, ANEU, TSH, ADIFF #### [address] [address] .GFRon 02-04-2024 GFR 80 ml/min/1.73sqm Normal [facility] ([place] Comment on above: Result Comment: GFR Population mean for , Non- Americans Ages 20-29 = 116 mL/min/1.73 sq.m. Ages 30-39 = 107 mL/min/1.73 sq.m. Ages 40-49 = 99 mL/min/1.73 sq.m. Ages 50-59 = 93 mL/min/1.73 sq.m. Ages 60-69 = 85 mL/min/1.73 sq.m. Ages 70+ = 75 mL/min/1.73 sq.m. Chronic Kidney Disease: Less than 60 mL/min/1.73 square meters End Stage Renal Disease: Less than 15 mL/min/1.73 square meters Performed By: #### V IDH, LIPID, GFR, CMP, CBC, ANEU, TSH, ADIFF #### [address] [address] GFR Non- 66 ml/min/1.73sqm Normal [facility] ([place] Comment on above: Result Comment: GFR Population mean for , Non- Americans Ages 20-29 = 116 mL/min/1.73 sq.m. Ages 30-39 = 107 mL/min/1.73 sq.m. Ages 40-49 = 99 mL/min/1.73 sq.m. Ages 50-59 = 93 mL/min/1.73 sq.m. Ages 60-69 = 85 mL/min/1.73 sq.m. Ages 70+ = 75 mL/min/1.73 sq.m. Chronic Kidney Disease: Less than 60 mL/min/1.73 square meters End Stage Renal Disease: Less than 15 mL/min/1.73 square meters Performed By: #### V IDH, LIPID, GFR, CMP, CBC, ANEU, TSH, ADIFF #### [address] [address] .NEUABSon 02-04-2024 Neutrophil, Absolute 4.6 10 3/mcL Normal 2.9-6.2 [facility] ([place]) Comment on above: Performed By: #### V IDH, LIPID, GFR, CMP, CBC, ANEU, TSH, ADIFF #### [address] [address] CBCon 02-04-2024 Erythrocyte distribution width (RBC) [Ratio] 12.8 % Normal 11.5-14.5 [facility] ([place] Comment on above: Performed By: #### V IDH, LIPID, GFR, CMP, CBC, ANEU, TSH, ADIFF #### [address] [address] Hematocrit (Bld) [Volume fraction] 41.2 % Normal 37.0-47.0 [facility] ([place] Comment on above: Performed By: #### V IDH, LIPID, GFR, CMP, CBC, ANEU, TSH, ADIFF #### [address] [address] Hgb 14.2 G/dL Normal 12.0-16.0 [facility] ([place] Comment on above: Performed By: #### V IDH, LIPID, GFR, CMP, CBC, ANEU, TSH, ADIFF #### [address] [address] MCH (RBC) [Entitic mass] 32.9 pg High 27.0-31.2 [facility] ([place] Comment on above: Performed By: #### V IDH, LIPID, GFR, CMP, CBC, ANEU, TSH, ADIFF #### [address] [address] MCHC 34.4 G/dL Normal 33.0-37.0 [facility] ([place] Comment on above: Performed By: #### V IDH, LIPID, GFR, CMP, CBC, ANEU, TSH, ADIFF #### [address] [address] MCV (RBC) [Entitic vol] 95.6 fL High 80.0-94.0 [facility] ([place] Comment on above: Performed By: #### V IDH, LIPID, GFR, CMP, CBC, ANEU, TSH, ADIFF #### [address] [address] Platelet 289 10 3/mcL Normal 130-400 [facility] ([place] Comment on above: Performed By: #### V IDH, LIPID, GFR, CMP, CBC, ANEU, TSH, ADIFF #### [address] [address] Platelet mean volume (Bld) [Entitic vol] 9.0 fL Normal 7.4-10.4 [facility] ([place] Comment on above: Performed By: #### V IDH, LIPID, GFR, CMP, CBC, ANEU, TSH, ADIFF #### [address] [address] RBC 4.31 10 6/mcL Normal 4.20-5.40 [facility] ([place] Comment on above: Performed By: #### V IDH, LIPID, GFR, CMP, CBC, ANEU, TSH, ADIFF #### [address] [address] WBC 7.4 10 3/mcL Normal 4.6-10.8 [facility] ([place] Comment on above: Performed By: #### V IDH, LIPID, GFR, CMP, CBC, ANEU, TSH, ADIFF #### [address] [address] CMPon 02-04-2024 Albumin Level 3.0 G/dL Low 3.4-4.8 [facility]) Comment on above: Performed By: #### V IDH, LIPID, GFR, CMP, CBC, ANEU, TSH, ADIFF #### [address] [address] Albumin/Globulin [Mass ratio] 0.8 {ratio} Low 1.1-2.5 [facility] ([place] Comment on above: Performed By: #### V IDH, LIPID, GFR, CMP, CBC, ANEU, TSH, ADIFF #### [address] [address] ALP [Catalytic activity/Vol] 64 U/L Normal 40-135 [facility] ([place] Comment on above: Performed By: #### V IDH, LIPID, GFR, CMP, CBC, ANEU, TSH, ADIFF #### [address] [address] ALT [Catalytic activity/Vol] 22 U/L Normal 14-59 [facility] ([place] Comment on above: Performed By: #### V IDH, LIPID, GFR, CMP, CBC, ANEU, TSH, ADIFF #### [address] [address] AST [Catalytic activity/Vol] 20 U/L Normal 10-40 [facility] ([place] Comment on above: Performed By: #### V IDH, LIPID, GFR, CMP, CBC, ANEU, TSH, ADIFF #### [address] [address] Bili Total 0.5 mg/dL Normal 0.2-1.0 [facility] ([place] Comment on above: Result Comment: Use of this assay is not recommended for patients undergoing treatment with eltrombopag due to the potential for falsely elevated results. Performed By: #### V IDH, LIPID, GFR, CMP, CBC, ANEU, TSH, ADIFF #### [address] [address] BUN/Creatinine Ratio 25 ratio Normal 7-27 [facility] [place] Comment on above: Performed By: #### V IDH, LIPID, GFR, CMP, CBC, ANEU, TSH, ADIFF #### [address] [address] Calcium [Mass/Vol] 9.2 mg/dL Normal 8.4-10.2 [facility] ([place]) Comment on above: Performed By: #### V IDH, LIPID, GFR, CMP, CBC, ANEU, TSH, ADIFF #### [address] [address] Chloride [Moles/Vol] 104 mmol/L Normal 98-107 [facility] [place] Comment on above: Performed By: #### V IDH, LIPID, GFR, CMP, CBC, ANEU, TSH, ADIFF #### [address] [address] CO2 [Moles/Vol] 30 mmol/L Normal 23-31 [facility] ([place] Comment on above: Performed By: #### V IDH, LIPID, GFR, CMP, CBC, ANEU, TSH, ADIFF #### [address] [address] Creatinine [Mass/Vol] 0.83 mg/dL Normal 0.55-1.02 [facility] ([place] Comment on above: Performed By: #### V IDH, LIPID, GFR, CMP, CBC, ANEU, TSH, ADIFF #### [address] [address] Electrolyte Balance 5.0 mEq/L Normal 4.0-15.0 [facility] ([place] Comment on above: Performed By: #### V IDH, LIPID, GFR, CMP, CBC, ANEU, TSH, ADIFF #### [address] [address] Globulin 3.8 G/dL Normal [facility] ([place] Comment on above: Performed By: #### V IDH, LIPID, GFR, CMP, CBC, ANEU, TSH, ADIFF #### [address] [address] Glucose [Mass/Vol] 96 mg/dL Normal 83-110 [facility] ([place] Comment on above: Performed By: #### V IDH, LIPID, GFR, CMP, CBC, ANEU, TSH, ADIFF #### [address] [address] Potassium [Moles/Vol] 4.7 mmol/L Normal 3.5-5.1 [facility] ([place] Comment on above: Performed By: #### V IDH, LIPID, GFR, CMP, CBC, ANEU, TSH, ADIFF #### [address] [address] Sodium [Moles/Vol] 139 mmol/L Normal 136-145 [facility] ([place] Comment on above: Performed By: #### V IDH, LIPID, GFR, CMP, CBC, ANEU, TSH, ADIFF #### [address] [address] Total Protein 6.8 G/dL Normal 6.4-8.2 [facility] ([place] Comment on above: Performed By: #### V IDH, LIPID, GFR, CMP, CBC, ANEU, TSH, ADIFF #### [address] [address] Urea nitrogen [Mass/Vol] 21 mg/dL High 7-18 [facility] ([place] Comment on above: Performed By: #### V IDH, LIPID, GFR, CMP, CBC, ANEU, TSH, ADIFF #### [address] [address] LABORATORYOrdered By: SYSTEM SYSTEM on 02-04-2024 25-hydroxyvitamin D3 [Mass/Vol] 30.7 ng/mL Invalid Interpretation Code AO ADM SS Comment on above: Interpretive Data: I nterpretive Values Based on Total 25(OH) Vitamin D: Deficient <20 ng/mL Insufficient 20 - <30 ng/mL Sufficient 30-100 ng/mL Albumin BCP dye [Mass/Vol] 3.0 G/dL Low 3.4 - 4.8 G/dL AO ADM SS Albumin/Globulin [Mass ratio] 0.8 {ratio} Low 1.1 - 2.5 ratio AO ADM SS ALP [Catalytic activity/Vol] 64 U/L Normal 40 - 135 U/L AO ADM SS ALT With P-5'-P [Catalytic activity/Vol] 22 U/L Normal 14 - 59 U/L AO ADM SS AST With P-5'-P [Catalytic activity/Vol] 20 U/L Normal 10 - 40 U/L AO ADM SS Basophil, Absolute 0.0 103/mcL Normal 0.0 - 0.2 10^3/mcL AO Workflow SS Basophils/100 WBC (Bld) 0.5 % Normal 0.0 - 2.5 % AO Workflow SS Bilirubin [Mass/Vol] 0.5 mg/dL Normal 0.2 - 1 .0 mg/dL AO ADM SS Comment on above: Interpretive Data: U se of this assay is not recommended for patients undergoing treatment with eltrombopag due to the potential for falsely elevated results. Calcium [Mass/Vol] 9.2 mg/dL Normal 8.4 - 10. 2 mg/dL AO ADM SS Chloride [Moles/Vol] 104 mmol/L Normal 98 - 10 7 mmol/L AO ADM SS CO2 [Moles/Vol] 30 mmol/L Normal 23 - 31 mmol/L AO ADM SS Creatinine [Mass/Vol] 0.83 mg/dL Normal 0.55 - 1.02 mg/dL AO ADM SS Electrolyte Balance 5.0 mEq/L Normal 4.0 - 15 .0 mEq/L AO ADM SS Eosinophil, Absolute 0.1 103/mcL Normal 0.0 - 0 .4 10^3/mcL AO Workflow SS Eosinophils/100 WBC (Bld) 2.0 % Normal 0.0 - 7.0 % AO Workflow SS Erythrocyte distribution width (RBC) [Ratio] 12.8 % Normal 11.5 - 14.5 % AO Workflow SS GFR/1.73 sq M.predicted among blacks MDRD (S/P/Bld) [Vol rate/Area] 80 ml/min/1.73sqm Invalid Interpretation Code AO Chemistry S Comment on above: Interpretive Data: GFR Population mean for , Non- Americans Ages 20-29 = 116 mL/min/1.73 sq.m. Ages 30-39 = 107 mL/min/1.73 sq.m. Ages 40-49 = 99 mL/min/1.73 sq.m. Ages 50-59 = 93 mL/min/1.73 sq.m. Ages 60-69 = 85 mL/min/1.73 sq.m. Ages 70+ = 75 mL/min/1.73 sq.m. Chronic Kidney Disease: Less than 60 mL/min/1.73 square meters End Stage Renal Disease: Less than 15 mL/min/1.73 square meters GFR/1.73 sq M.predicted among non-blacks MDRD (S/P/Bld) [Vol rate/Area] 66 ml/min/1.73sqm Invalid Interpretation Code AO Chemistry S Comment on above: Interpretive Data: GFR Population mean for , Non- Americans Ages 20-29 = 116 mL/min/1.73 sq.m. Ages 30-39 = 107 mL/min/1.73 sq.m. Ages 40-49 = 99 mL/min/1.73 sq.m. Ages 50-59 = 93 mL/min/1.73 sq.m. Ages 60-69 = 85 mL/min/1.73 sq.m. Ages 70+ = 75 mL/min/1.73 sq.m. Chronic Kidney Disease: Less than 60 mL/min/1.73 square meters End Stage Renal Disease: Less than 15 mL/min/1.73 square meters Globulin 3.8 G/dL Invalid Interpretation Code AO ADM SS Glucose [Mass/Vol] 96 mg/dL Normal 83 - 110 mg/dL AO ADM SS Hematocrit (Bld) [Volume fraction] 41.2 % Normal 37.0 - 47.0 % AO Workflow SS Hemoglobin (Bld) [Mass/Vol] 14.2 G/dL Normal 12.0 - 16.0 G/dL AO Workflow SS Lymphocyte, Absolute 1.9 103/mcL Normal 0.8 - 3 .9 10^3/mcL AO Workflow SS Lymphocytes/100 WBC (Bld) 25.7 % Normal 10.0 - 50.0 % AO Workflow SS MCH (RBC) [Entitic mass] 32.9 pg High 27.0 - 31.2 pg AO Workflow SS MCHC 34.4 G/dL Normal 33.0 - 37.0 G/dL AO Workflow SS MCV (RBC) [Entitic vol] 95.6 fL High 80.0 - 94.0 fL AO Workflow SS Monocyte, Absolute 0.7 103/mcL Normal 0.2 - 1.0 10^3/mcL AO Workflow SS Monocytes/100 WBC (Bld) 9.5 % Normal 1.7 - 13.0 % AO Workflow SS Neutrophil, Absolute 4.6 103/mcL Normal 2.9 - 6 .2 10^3/mcL AO Workflow SS Neutrophils/100 WBC (Bld) 62.3 % Normal 37.0 - 80.0 % AO Workflow SS Platelet mean volume (Bld) [Entitic vol] 9.0 fL Normal 7.4 - 10.4 fL AO Workflow SS Platelets (Bld) [#/Vol] 289 103/mcL Normal 130 - 400 10^3/mcL AO Workflow SS Potassium [Moles/Vol] 4.7 mmol/L Normal 3.5 - 5.1 mmol/L AO ADM SS Protein [Mass/Vol] 6.8 G/dL Normal 6.4 - 8.2 G/dL AO ADM SS RBC (Bld) [#/Vol] 4.31 106/mcL Normal 4.20 - 5.40 10^6/mcL AO Workflow SS Sodium [Moles/Vol] 139 mmol/L Normal 136 - 145 mmol/L AO ADM SS TSH Qn 1.85 m[IU]/L Normal 0.36 - 3.74 mcIU/mL AO ADM SS Urea nitrogen [Mass/Vol] 21 mg/dL High 7 - 18 mg/dL AO ADM SS Urea nitrogen/Creatinine [Mass ratio] 25 ratio Normal 7 - 27 ratio AO ADM SS WBC (Bld) [#/Vol] 7.4 103/mcL Normal 4.6 - 10.8 10^3/mcL AO Workflow SS LABORATORYOrdered By: Chichi Parra on 02-04-2024 Cholesterol [Mass/Vol] 207 mg/dL High 0 - 2 00 mg/dL AO ADM SS Comment on above: Interpretive Data: C holesterol Reference Interval: Less than 200 Desirable 200-239 Borderline high risk 240 and above High risk Cholesterol in HDL [Mass/Vol] 82 mg/dL High 40 - 60 mg/dL AO ADM SS Cholesterol in LDL [Mass/Vol] 113 mg/dL Normal 0 - 130 mg/dL AO ADM SS Triglyceride [Mass/Vol] 62 mg/dL Normal 0 - 150 mg/dL AO ADM SS Comment on above: Interpretive Data: T riglyceride Reference Interval: Less than 150 Normal 150-199 Borderline high risk 200-499 High risk 500 or higher Very high risk LIPIDon 02-04-2024 Cholesterol [Mass/Vol] 207 mg/dL High 0-200 [facility] ([place]) Comment on above: Result Comment: Chol esterol Reference Interval: Less than 200 Desirable 200-239 Borderline high risk 240 and above High risk Performed By: #### V IDH, LIPID, GFR, CMP, CBC, ANEU, TSH, ADIFF #### [address] [address] Cholesterol in HDL [Mass/Vol] 82 mg/dL High 40-60 [facility] ([place]) Comment on above: Performed By: #### V IDH, LIPID, GFR, CMP, CBC, ANEU, TSH, ADIFF #### [id number] [place], [place] [address] Cholesterol in LDL [Mass/Vol] 113 mg/dL Normal 0-130 [facility] ([place] Comment on above: Performed By: #### V IDH, LIPID, GFR, CMP, CBC, ANEU, TSH, ADIFF #### [id number] [place], [place] [address] Triglyceride [Mass/Vol] 62 mg/dL Normal 0-150 [facility] ([place]) Comment on above: Result Comment: Trig lyceride Reference Interval: Less than 150 Normal 150-199 Borderline high risk 200-499 High risk 500 or higher Very high risk Performed By: #### V IDH, LIPID, GFR, CMP, CBC, ANEU, TSH, ADIFF #### [place] [address] [address] TSHon 02-04-2024 TSH Qn 1.85 m[IU]/L Normal 0.36-3.74 [facility] ([place] Comment on above: Performed By: #### V IDH, LIPID, GFR, CMP, CBC, ANEU, TSH, ADIFF #### [address] [address] VIDHon 02-04-2024 Vit. D 25-Hydroxy 30.7 ng/mL Normal [facility] ([place]) Comment on above: Result Comment: Inte rpretive Values Based on Total 25(OH) Vitamin D: Deficient <20 ng/mL Insufficient 20 - <30 ng/mL Sufficient 30-100 ng/mL Performed By: #### V IDH, LIPID, GFR, CMP, CBC, ANEU, TSH, ADIFF #### [address] [address] BD BONE DENSITY DEXA AXIAL S KELETONon 01-13-2024 BD BONE DENSITY DEXA AXIAL SKELETON ORIGINAL EXAMINATION: BONE DENSITOMETRY 01/13/2024 10:15 am TECHNIQUE: A bone density dual x-ray absorptiometry (DEXA) scan was performed of the axial (e.g. hips, spine) and/or appendicular (e.g. radius) skeleton as appropriate. COMPARISON: 11/06/2021 HISTORY: ORDERING SYSTEM PROVIDED HISTORY: Reason for Exam: Osteoporosis Screening FINDINGS: BMD (g/cm2) Lumbar Spine L1-L4: 0.750. T Score Lumbar Spine L1-L4: -2.7 BMD (g/cm2) Left Femoral Neck: 0.573. T Score Left Femoral Neck: -2.5 BMD (g/cm2) Left Hip: 0.751. T Score Left Hip: -1.6 BMD Change from previous Hip: 12.8% BMD Change from previous Lumbar spine: 4.6% IMPRESSION: Osteoporosis by WHO criteria. World Health Organization criteria: (Comparing with young normal sex matched population) - Normal: T-score at or above -1 SD (standard deviation) - Osteopenia: T-score between -1 and -2.5 SD - Osteoporosis: T-score at or below -2.5 SD The NOF recommends that FDA-approved medical therapies be considered in post-menopausal women and men age >/= 50 years with a: * Hip or vertebral fracture, or * T-score of /= 20% for major osteoporotic fractures or * >/= 3% for hip fractures All treatment decisions require clinical judgement and consideration of individual patient factors, including patient preferences, comorbidities, previous drug use, risk factors not captured in the FRAX registered model (e.g., frailty, falls, vitamin D deficiency, increased bone turnover, interval significant decline in bone density) and possible under- or over-estimation of fracture risk by FRAX. I have personally reviewed the images of this examination and agree with the resident's findings and interpretation. Interpreted by: Maico Conrad DO Preliminary Report By: Betty Lares Electronically signed By Maico Conrad DO Dictated Date: 01/13/2024 10:17:48 AM Prelim Date: 01/13/2024 10:46:45 AM Sign Date: 01/13/2024 10:46:45 AM Ordering Provider: ИВАН LOPEZ [facility] ([place]) Absolute lymphocyte countOrd ered By: Thomas Mayen on 11-29-2023 Lymphocytes Auto (Unsp spec) [#/Vol] 1.22 10*3/uL 0.83-4.51 [facility] Automated lymphocyte count a s percentage of total leukocytesOrdered By: Thomas Mayen on 11-29-2023 Lymphocytes/100 WBC Auto (Unsp spec) 8.4 % 19-41 [facility] Basophil percentageOrdered B y: Thomas Mayen on 11-29-2023 Basophils/100 WBC (Bld) 0.1 % 0-1 [facility] Chloride [Moles/Vol] 110 mmol/L 98-107 [facility] Eosinophils/100 WBC (Bld) 0.3 % 0-5 [facility] Glucose [Mass/Vol] 140 mg/dL 74-106 [facility] Comment on above: Fasting Glucose resu lt greater than or equal to 126 mg/dL suggests DIABETES MELLITUS per A.D.A. criteria. Hemoglobin (Bld) [Mass/Vol] 14.8 g/dL 12.0-15.0 [facility] Monocytes/100 WBC (Bld) 5.9 % 0-10 [facility] Neutrophils (Bld) [#/Vol] 12.3 10*3/uL 2.0-7.7 [facility] Neutrophils/100 WBC (Bld) 84.9 % 47-70 [facility] Potassium [Moles/Vol] 3.8 mmol/L 3.5-5.1 [facility] Sodium [Moles/Vol] 140 mmol/L 136-145 [facility] WBC (Bld) [#/Vol] 14.5 10*3/uL 4.4-11.0 [place] Determination of erythrocyte mean corpuscular volume (MCV)Ordered By: Thomas Mayen on 11-29-2023 MCV (RBC) [Entitic vol] 99.8 fL 81-99 [facility] Erythrocyte distribution wid th ratioOrdered By: Thomas Mayen on 11-29-2023 Erythrocyte distribution width (RBC) [Ratio] 12.2 % 11.6-14.6 [facility] Erythrocyte distribution wid th standard deviationOrdered By: Thomas Mayen on 11-29-2023 Erythrocyte distribution width (RBC) [Entitic vol] 44.4 fL 35.1-43.9 [facility] Hematocrit Auto (Bld) [Volum e fraction]Ordered By: Thomas Mayen on 11-29-2023 Hematocrit (Bld) [Volume fraction] 46.2 % 37-47 [facility] Immature granulocytes/100 WB C Auto (Bld)Ordered By: Thomas Mayen on 11-29-2023 Immature granulocytes/100 WBC (Bld) 0.400 % 0.0-0.9 [facility] Comment on above: IG% - Immature Granu locytes (promyelocytes, myelocytes and metamyelocytes) > 1% indicates that a LEFT SHIFT is Present. Laboratory - Chemistry and C hemistry - challengeOrdered By: Thomas Mayen on 11-29-2023 CO2 [Moles/Vol] 26.0 mmol/L 21.0-32.0 [facility] Urea nitrogen/Creatinine [Mass ratio] 25.5 mg/mg 10-20 [facility] Laboratory - Hematology and Cell countsOrdered By: Thomas Mayen on 11-29-2023 MCH (RBC) [Entitic mass] 32.0 pg 27.0-32.0 [facility] MCHC (RBC) [Mass/Vol] 32.0 g/dL 32-36 [facility] Nucleated RBC/100 WBC (Bld) [Ratio] 0 % 0-5 [facility] Platelets (Bld) [#/Vol] 233 10*3/uL 150-450 [facility] Laboratory - Microbiology an d Antimicrobial susceptibilityOrdered By: Thomas Mayen on 11-29-2023 SARS-CoV-2 (COVID-19) RNA CHELSIE+probe Ql (Unsp spec) [facility] No Panel InformationOrdered By: Thomas Mayen on 11-29-2023 Troponin I High Sensitivity 14 pg/mL 3.0-54.0 [facility] Comment on above: Please Note: [place] t Units and Gender Specific Reference Ranges. For more information see Policy Stat Procedure [place] High Sensitivity Troponin (TNIH) and attachments. Estimated Creatinine Clearance Calc 52.86 ml/min [facility] Estimated GFR (MDRD) Amer 90 mL/min >60 [facility] Comment on above: GFR Calc Estimated GFR (MDRD) Non-Af Amer 74 mL/min >60 [facility] Comment on above: Non- GFR Calc Platelet mean volume Sanjiv-Ec ker (Bld) [Entitic vol]Ordered By: Thomas Mayen on 11-29-2023 Platelet mean volume (Bld) [Entitic vol] 11.5 fL 6.2-12.0 [facility] RBC Auto (Bld) [#/Vol]Ordere d By: Thomas Mayen on 11-29-2023 RBC (Bld) [#/Vol] 4.63 10*6/uL 4.2-5.4 [place] Serum or plasma calcium siela urement (mass/volume)Ordered By: Thomas Mayen on 11-29-2023 Calcium [Mass/Vol] 8.8 mg/dL 8.5-10.1 [facility] Serum or plasma creatinine m easurement (mass/volume)Ordered By: Thomas Mayen on 11-29-2023 Creatinine [Mass/Vol] 0.78 mg/dL 0.55-1.02 [facility] Comment on above: The validity of the calculated GFR & GFRAA in patients over 70 years has not been determined. Clinical correlation is essential. Serum or plasma urea nitroge n measurement (mass/volume)Ordered By: Thomas Mayen on 11-29-2023 Urea nitrogen [Mass/Vol] 20 mg/dL 7-18 [facility] Thin prep Papanicolaou smear with manual screeningOrdered By: Thomas Mayen on 11-29-2023 Thin prep Papanicolaou smear with manual screening 4 5-15 [facility] LABORATORYOrdered By: Loy Dhillon on 11-30-2022 Appearance (U) Clear (11/30/22 1:59 PM) Invalid Interpretation Code Clear AO Auto Urine SS Bilirubin Ql (U) Negative (11/30/22 1:59 PM) Invalid Interpretation Code Negative AO Auto Urine SS Color (U) Yellow (11/30/22 1:59 PM) Invalid Interpretation Code AO Auto Urine SS Glucose Test strip (U) [Mass/Vol] Negative Invalid Interpretation Code Negativemg /dL AO Auto Urine SS Hemoglobin Auto test strip (U) [Mass/Vol] Negative (11/30/22 1:59 PM) Invalid Interpretation Code Negative AO Auto Urine SS Ketones Ql (U) Negative Invalid Interpretation Code Negativemg /dL AO Auto Urine SS UA Leuk Est Negative (11/30/22 1:59 PM) Invalid Interpretation Code Negative AO Auto Urine SS UA Nitrite Negative (11/30/22 1:59 PM) Invalid Interpretation Code Negative AO Auto Urine SS UA pH 7.0 (11/30/22 1:59 PM) Invalid Interpretation Code 5.0 - 8.0 AO Auto Urine SS UA Protein Negative Invalid Interpretation Code Negativemg /dL AO Auto Urine SS UA Spec Grav 1.020 (11/30/22 1:59 PM) Invalid Interpretation Code 1.015-1.02 5 AO Auto Urine SS UA Specimen Type Clean Catch (11/30/22 1:59 PM) Invalid Interpretation Code AO Auto Urine SS UA Urobilinogen 0.2 E.U./dL Invalid Interpretation Code 0.2-1.0E.U ./dL AO Auto Urine SS No Panel Informationon 11-30 Culture Urine <10,000 cfu/ml. No Significant growth. Sensitivity not indicated. [facility] AMIKACIN:SUSC:PT:ISOLATE:ORD QN:MICon 11-24-2022 Amikacin BENEDICT [Susc] >100,000 cfu/ml Escherichia coli [facility] Amikacin BENEDICT [Susc]on 2022 Escherichia coli Escherichia coli [facility] CEFAZOLIN:SUSC:PT:ISOLATE:OR DQN:MICon 08-23-2022 ceFAZolin BENEDICT [Susc] >100,000 cfu/ml Escherichia coli [facility] ceFAZolin BENEDICT [Susc]on 08-23 Escherichia coli Escherichia coli [facility] LABORATORYOrdered By: Loy Dhillon on 02-02-2022 Albumin BCP dye [Mass/Vol] 3.3 G/dL Invalid Interpretation Code 3.4 - 4.8 G/dL AO ADM SS Albumin/Globulin [Mass ratio] 0.8 {ratio} Invalid Interpretation Code 1.1 - 2.5 ratio AO ADM SS ALP [Catalytic activity/Vol] 72 U/L Invalid Interpretation Code 40 - 135 U/L AO ADM SS ALT With P-5'-P [Catalytic activity/Vol] 23 U/L Invalid Interpretation Code 14 - 59 U/L AO ADM SS AST With P-5'-P [Catalytic activity/Vol] 26 U/L Invalid Interpretation Code 10 - 40 U/L AO ADM SS Bilirubin [Mass/Vol] 0.6 mg/dL Invalid Interpretation Code 0.2 - 1.0 mg/dL AO ADM SS Calcium [Mass/Vol] 9.3 mg/dL Invalid Interpretation Code 8.4 - 10.2 mg/dL AO ADM SS Chloride [Moles/Vol] 103 mmol/L Invalid Interpretation Code 98 - 107 mmol/L AO ADM SS Cholesterol [Mass/Vol] 195 mg/dL Invalid Interpretation Code 0 - 200 mg/dL AO ADM SS Cholesterol in HDL [Mass/Vol] 78 mg/dL Invalid Interpretation Code 40 - 60 mg/dL AO ADM SS Cholesterol in LDL [Mass/Vol] 104 mg/dL Invalid Interpretation Code 0 - 130 mg/dL AO ADM SS CO2 [Moles/Vol] 29 mmol/L Invalid Interpretation Code 23 - 31 mmol/L AO ADM SS Creatinine [Mass/Vol] 0.77 mg/dL Invalid Interpretation Code 0.55 - 1.02 mg/dL AO ADM SS Electrolyte Balance 9.0 mEq/L Invalid Interpretation Code 4.0 - 15.0 mEq/L AO ADM SS Globulin 3.9 G/dL Invalid Interpretation Code AO ADM SS Glucose [Mass/Vol] 79 mg/dL Invalid Interpretation Code 83 - 110 mg/dL AO ADM SS Potassium [Moles/Vol] 3.8 mmol/L Invalid Interpretation Code 3.5 - 5.1 mmol/L AO ADM SS Protein [Mass/Vol] 7.2 G/dL Invalid Interpretation Code 6.4 - 8.2 G/dL AO ADM SS Sodium [Moles/Vol] 141 mmol/L Invalid Interpretation Code 136 - 145 mmol/L AO ADM SS Triglyceride [Mass/Vol] 66 mg/dL Invalid Interpretation Code 0 - 150 mg/dL AO ADM SS TSH Qn 1.89 m[IU]/L Invalid Interpretation Code 0.36 - 3.74 mcIU/mL AO ADM SS Urea nitrogen [Mass/Vol] 16 mg/dL Invalid Interpretation Code 7 - 18 mg/dL AO ADM SS Urea nitrogen/Creatinine [Mass ratio] 21 ratio Invalid Interpretation Code 7 - 27 ratio AO ADM SS Vit. D 25-Hydroxy 28.8 ng/mL Invalid Interpretation Code AO ADM SS LABORATORYOrdered By: SYSTEM SYSTEM on 02-02-2022 GFR 87 ml/min/1.73sqm Invalid Interpretation Code AO Chemistry S GFR Non- 72 ml/min/1.73sqm Invalid Interpretation Code AO Chemistry S OTARon 06-30-2020 OT Assessment Report [facility] Occupational Therapy Community Mobility and IADL Report Performance Skills Evaluation Date: 06/30/[address] D[address] Assessment: not completed Demographics: Age: 80Y Gender: Female Summary of Results: (see attached report(s) for details) Strengths: Henry is able to complete all self care on her own in addition to day to day home management including own finance and medication management tasks while living on her own while in apartment that is part of her daughter's house so has assist available as she needs it; she has good driving record while not having driven for the past 4 years and rarely for several years prior to that as her did the driving for the both of them; clinically she demonstrated functional vision as required by [facility] for far acuity and visual ervin, within raw score normal for age on visual perceptual screening, orientation/verbal problem solving/recall memory/concentration/re trieval for more alf information/Clock drawing performance, functional physical skills; she has supportive daughters who are willing and able to continue to provide assist as needed including with transportation. 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/19 in addition to various eye health concerns; she has not driven since having her stroke with her passing away in 2016 then she moved into daughter's home in own apartment which was plan for she and her but he before; the vehicle that she has was one that her purchased after she had her stroke and that she never drove; prior to her 's passing, he did all of the driving for the 2 of them so uncertain as to the frequency or time she did drive previously; despite not having lives alone previously, she talked about wanting to move out on her own now while lacking insight into the various concerns related to her living without nearby assist; she deals with chronic pain in L side of low back which inhibits her from being very active; clinically she demonstrated decreased B glare far acuity and contrast sensitivity, decreased for stereo depth perception, decreased oculomotor pursuits to lower quadrants, MARKEDLY UNDER AVERAGE VISUAL PROCESSING SPEED FOR VISUAL PERCEPTUAL SCREENING FOR AGE along with signs of left inattention, IMPAIRMENT FOR TRAILMAKING B FOR ALTERNATING ATTENTION WHILE COMPLETED SAME IN 278 SEC (functional <180 sec), decreased auditory attention skills while does have hearing aides but does not wear them consistently, numbness reported in LUE while lacking pressure sense, and MARKEDLY BELOW AVERAGE FOR SIMULATED BRAKE REACTION DISTANCE OF 103 FEET (normal=60 feet). Per daughter's report, Henry has not been out of the house for the past 1.5 years other than for appointments while she refuses to go shopping but continues to insist that she should live on her own, concerns related to her mom's decreased concentration/sustained attention/being easily distracted, [facility] PATIENT NAME: HENRY DEGROOT [address] [place] MEDICAL REC #: [id number] [place] [address] ADMIT DATE: SERVICE DATE: 06/30/20 Occupational Therapy Assessment ATTENDING DESEAN: Mesha Dean preference for isolation and being rather sedentary despite options to not be and offers to go with family. Recommendations: PATIENT SHOULD NOT DRIVE. Based on the various concerns indicated in this report, driving cessation indicated. Alternative transportation. She will need to continue to rely on her daughter/others to provide for her transportation needs as she has been for the past several years. Vehicle and Equipment Needs: Her daughter uses Henry's van to provide for her transportation needs currently which is still appropriate while it has wheelchair/scooter lift in back as family wants to. Additional Comments: Several concerns exist related to Henry's current situation and indication for driving cessation/senior living as highlighted in this report. She has excellent support available while in wonderful situation that promotes her autonomy while she has assist as needed. Her current license is suspended with this therapist recommending that Henry's daughter take her to get [place] identification card in future at the [facility] [place] while this therapist will provide information to physician to report concern to [facility]. Also discussed recommendation for increased activity and possible counseling and socialization with peers while expect she would benefit from all of the options if she is willing. Date: 07/07/2020 Occupational Therapist/Hammer Repairer Sign Language Instructor signature Please Note: The results and recommendations included in the Hammer Repairer Evaluation Report are based on the patient's performance during the period of the evaluation and should not be relied on as absolute predictors of future performance. The conclusions and recommendations in this report are based, in part, upon the medical information available at the time. 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 If the patient's physical and mental status remains the same as during the evaluation period, the recommendations in the report should be considered valid for 6 months. Beyond that time, a re - evaluation may be necessary. Signed by: JUAN CARLOS RIVERO, OT/L, CDRS, CDI/PD 07/07/2020 14:08:35 [facility] PATIENT NAME: HENRY DEGROOT [address] [place] [address] 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 3 R41.8 Other symptoms and signs involving cognitive 07/04/2020 functions and awareness 4 R26.8 Other abnormalities of gait and mobility 07/04/2020 Initial Evaluation Date: 06/30/2020 Referring Clinician: ELLEN HendersonSTUDENT LIFE ADVISOR Medical Diagnosis: R MCA stroke Date of Onset: 02/2016 Past Medical History: breast cancer, laser surgery on B eyes for pressure (glaucoma), B cataract surgery, 02/17 R CVA, 02/19 seizure (uncertain if she also has 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 Response Symptoms Cough No Fever No Sore Throat No Shortness of Breath No Fatigue No New Confusion No Has the patient/client traveled internationally within the last 14 days to countries with confirmed cases of COVID-19? No Has the patient/client been in contact with anyone with a confirmed or suspected diagnosis of COVID-19? No OCCUPATIONAL PROFILE AND HISTORY Basic ADLs: she is able to complete all self care tasks on her own [facility] PATIENT NAME: HENRY DEGROOT [address] [place] MEDICAL REC #: [id number] [place] [address] ADMIT DATE: SERVICE DATE: 06/30/20 Occupational Therapy Assessment ATTENDING DESEAN: Mesha Dean Instrumental ADLs: she lives in her own home which is the first floor of her daughters having been renovated as her own living space while her daughter/son in law live on the lowest level of the house; she is able to get own meals, do her laundry, do the day to day cleaning, changes own bedding, writes out own checks while her daughter oversees her finances including her investments; takes own medication while daughter aware of same Work/Leisure/Education: she completed 8 years of formal schooling (raised in [place] [facility] [place] worked for 20 years at [employer]; reading, word searches, cooking Driving History: Driving for: not sure at what age she started driving while she stopped when she was 75 due to having the stroke years. Time Since Last Driven: 02/17 Hammer Repairer's License Expiration Date: 2020 () State of: [place]; corrective lenses required for driving Type of Vehicle: 2015 [address] (she has never driven the same while purchased same after she had her stroke) Type of Insurance: [employer] Type of Driving Anticipated: Local Daytime [place] Reason for Driving is: [place] Social/Leisure Home management History of Accidents: Patient does not have a history of accidents. Traffic Violations: Patient does not have any traffic violations. Patient Report: Henry shared that she would like to move out on her own to [place] [facility] while also sharing that she owns a condo in [place] she could also consider although it is rented out. She is also interested in considering involvement in [employer] program however she has never been involved with this previously and is not certain where the options exist. She shared that she thinks she is capable of moving out on her own while also included that she would like to find a man in the future also. Finally she would like to return to restorationism however has not initiated to her daughter that she wants to do that despite her daughter telling her they would make sure she would get there if she wants to go. She did share that she reads the newspaper, book sometimes, does word searches, likes to cook some. Patient/Caregiver Goals: Patient's functional goals: to be able to return to driving on her own and providing for all of her transportation needs Pain: Patient currently has pain. Location: L side of low back Type: Chronic Recurrent Quality: Aching. Pain Scale: Visual Analog (VAS). Patient reports a pain level of - unable to articulate. did not indicate pain [facility] PATIENT NAME: HENRY DEGROOT [address] [place] MEDICAL REC #: [id number] [place] [address] ADMIT DATE: SERVICE DATE: 06/30/20 Occupational Therapy Assessment ATTENDING DESEAN: Mesha Dean Social History: Marital Status: since 2017 Children: 2 daughters Reside: lives in same house with 1, other lives in [facility] Employment Status: none Recreational Activities/Hobbies: none indicated Self-reported Quality of Life: At present time, patient reports having a fair quality of life/health status. OBJECTIVE / OCCUPATIONAL PERFORMANCE General Observation: Henry was cooperative and pleasant during session although it became clear early in the session that she does not appear to have much insight into her her deficits or level of function. Her daughter that she lives with was present for session and provided helpful information throughout as requested. Visual/Perceptual Screening: Correctve Lenses: Patient wears corrective lenses. Date of Last Eye Exam: 09/21 with new glasses at that time Reading Skills: Higher level. Stereo - Optical Test: Far Acuity: 20/ 40 Glare far acuity R-20/50, L-20/50-1; minimal to moderate decrease for B contrast sensitivity; functional for color perception and B peripheral/nasal visual ervin; DECREASED FOR STEREO DEPTH PERCEPTION Oculomotor Skills: LEFT EYE RANGE OF MOTION: Left eye has limited range of motion as follows: decreased lower quadrants . RIGHT EYE RANGE OF MOTION: Right eye has limited range of motion as follows: decreased lower quadrants . BOTH EYE RANGE OF MOTION: Both eyes have limited range of motion as follows: decreased lower quadrants . DIPLOPIA ON GAZE TO: Superior CONVERGENCE: Normal (6-8) LEFT FIELD SACCADES: Direct Fixation RIGHT FIELD SACCADES: Direct Fixation PURSUITS: Loses Fixation VISUAL SCANNING: problems with pursuits to lower quadrants . Motor Free Visual Perception Test: Raw Score: 33 /36. Processing Time: 14.4 seconds. Norms: 70 - 80, 4.5 - 7.1 sec. she had to move her body to the left to scan the whole page while therapist continued to try and move test book to be in midline for her view however she would keep moving back to left COGNITION Screening [facility] PATIENT NAME: HENRY DEGROOT [address] [place] MEDICAL REC #: [id number] [place] [address] ADMIT DATE: SERVICE DATE: 06/30/20 Occupational Therapy Assessment ATTENDING DESEAN: Mesha Dean Orientation: No impairment detected (5/5 correct orientation reponses). Attention: Chester making test Part B: 278 seconds - impaired. Functional performance on this alternating attention task <180 sec therefore not within same. Safety/Judgment/Problem Solving: No impairment detected (identifies 3/3 appropriate solutions for emergency responses). Memory: score of 4 on Short Blessed Cognitive screen which is in normal to minimally impaired range Also noted during the evaluation: Attention - required redirection multiple times. Dora thinking. Delayed processing. Tangential speech. Perseveration. Impulsivity. Compromised safety behaviors. ONLY ABLE TO RECALL 5 DIGITS FORWARD FOR AUDITORY ATTENTION (does have B hearing aides while does not wear them consistently); able to recall 4/4 recent past presidents without v/c's; Clock drawing score of 6/7 (normal >5/7) Physical Assessment Range of Motion: Within functional limits. Strength: Within functional limits. Sensation: Impaired. She reported numbness LUE while lacking sense of pressure while unable to federal judge the same. Coordination: Within functional limits. Rapid Alternating Movement: Within functional limits. Sitting Balance: Within functional limits. Head/Neck Control: Within functional limits. Endurance: Within functional limits. She did agreed that she is minimally physically active other than walking around the house; does have wheeled walker that she will use to move items around the house as has tramoira on the same but does not require it for walking per her report. Mobility: Within functional limits. She can ambulate without use of any assistive device while wheeled walker good choice for distances outside of her home. Hand Dominance: Right. Handicap Placard: Patient has a handicap placard. Road Sign Recognition/Rules of Driving: Not Tested. Simulated Reaction - Braking Distance (Norms 60 ft): Reaction Distance: Average = 103 ft. Below Average. R foot only pedal operation method following verbal instructions and practice prior to testing Family/Friend Interview/Survey: Daughter shared that her mom has been more independent lately including doing own meal preparation for self which she did not do for a long time. The daughter indicated that her dad wanted the 2 of them to move into assistive environment which was decided would be at their daughter's house who was willing [facility] PATIENT NAME: HENRY DEGROOT [address] [place] MEDICAL REC #: [id number] [place] [address] ADMIT DATE: SERVICE DATE: 06/30/20 Occupational Therapy Assessment ATTENDING DESEAN: Mesha Dean and able to make the renovations. They completed those but her dad prior to them being able to move in together. Her mom came on her own after the stroke and his passing in 2017 but has never embraced this as her own home while continuously talking about moving out on her own into [facility] in [facility]. Henry also has not been out of the house for about 1.5 years other than for appointments while she refuses to go to [employer] to do her own shopping with her daughter having been there last time about 2 years ago. So she is majorly lacking in community mobility opportunities per her own choice as her daughter said she is willing to take her anytime. Prior to her 's , Henry did not drive while he did all of the driving for the both of them although she began talking about wanting to drive again after he passed. Daughter also shared that she has significant problems with concentration/sustained attention and is easily distracted which would not make return to driving very safe in addition to her vision becoming more impaired especially in her R eye. Henry also did see counselor in the past to help deal with adjustment and grief issues however this was stopped several months ago while uncertain if this will be pursued again in the future. Her mom prefers to be isolated and very sedentary while not initiated much activity and would therefore not be able to live completely on her own as would not be safe option while her daughter says she has been trying to leave her mom alone more frequently so she can have the autonomy she keeps saying she wants. Projected Adaptive Equipment Needs: N/A Psychosocial: Depression appears to be present for Henry which is likely been the case for the past few years as she has had to deal with many life changes in short amount of time. Should continue to be monitored medically moving forward. Other/Additional Findings: Based on the various concerns indicated in this report, driving senior living/cessation necessary. This therapist did talk at length with Henry and her daughter about this while Henry was very disappointed but acknowledged same. Interventions: Evaluation HIGH Complexity Self Care/Home Management: refer to details in this report Pain Reassessment: No significant change in pain during session. Education: The patient's preferred learning method is: Explanation Barriers to Learning: Cognitive limitations, Visual deficits Learning Needs: Plan of care. Safety. Functional activities/mobility. Communication/cognition . Education Provided: Plan of care. Safety issues and interventions. Impaired vision. Supervision requirements. Driving. Safety. Home exercise/activity plan. Cognitive functioning. Audience: Patient., daughter [facility] PATIENT NAME: HENRY DEGROOT [address] [place]red MEDICAL REC #: [id number] [place] [id number] ADMIT DATE: SERVICE DATE: 06/30/20 Occupational Therapy Assessment ATTENDING DESEAN: Mesha Dean Mode: Explanation. Printed material provided. Response: Applied knowledge. Verbalized understanding. Demonstrated skill. Needs reinforcement. ASSESSMENT Support Structure: Support structure is good. Family member willing to assist patient. Response to Evaluation: The session was tolerated fairly, as evidenced by: Henry was upset with the senior living from driving indication. PLAN Necessity: Patient does not require outpatient therapy in order to return to premorbid environment (or reside in new living environment). Patient does not require outpatient therapy in order to reduce Activities of Daily Living or Instrumental Activities of Daily Living assistance to a premorbid level. Her daughter will continue to provide for Henry's transportation needs as she has been doing for the past several years. The patient has been instructed to contact the clinic if any questions or problems should arise. Visit Number: Today's visit is number 1 Services: Total Billed: 150 minutes (Timed: 90, Untimed: 60) 90.00 Timed: [54168] OT-ADL/HOME MGT EACH 15 MIN* 60.00 Untimed: [00452] OT-EVALUATION HIGH COMPLEX Signed by: JUAN CARLOS RIVERO OT/Wendy, CDRS, CDI/PD 07/04/2020 16:07:29 [facility] PATIENT NAME: HENRY DEGROOT [address] [place] MEDICAL REC #: [id number] [place] [address] ADMIT DATE: SERVICE DATE: 06/30/20 Occupational Therapy Assessment ATTENDING PHY: Mesha Dean [facility] CR Chest PA/LATon 04-12-2018 CR Chest PA/LAT Patient Name: HENRY DEGROOT Diagnostic Radiology Exam Date/Time 04/12/2018 13:14:04 EDT Exam CR Chest PA/LAT Ordering Physician DENNY JOSE AMANDA A. Accession Number [id number] CPT4 Codes 10819 () Reason For Exam palpitations Report CHEST: CLINICAL INDICATION: Dictation TECHNIQUE: AP portable chest COMPARISON: 02/13/2016 FINDINGS: The cardiac and mediastinal silhouettes are normal. Right apical scarring is again seen. No focal consolidation or pulmonary edema. There is no sizable pleural effusion. Degenerative change of the thoracic spine is noted. IMPRESSION: No acute process. Report Dictated on Final Dictated: 04/12/2018 1:26 pm Dictating Physician: MD HODGE NICHOLAS Signed Date and Time: 04/12/2018 1:27 pm Signed by: MD HODGE NICHOLAS Transcribed Date and Time: 04/12/2018 1:26 [address] [facility] CT Head or Brain w/o Contras ton 04-12-2018 CT Head or Brain w/o Contrast Patient Name: HENRY DEGROOT CT Exam Date/Time 04/12/2018 12:21:[address] Head or Brain w/o Contrast Ordering Physician DENNY JOSE, CAS [place] Accession Number [id number] CPT4 Codes 54024 () Reason For Exam dizzy Report CLINICAL INFORMATION: Headache and dizziness. History of cerebral infarct. TECHNIQUE: 3 mm axial cuts through the head are obtained without IV contrast. Images were reconstructed in sagittal and coronal planes. Comparison: 02/13/2016. FINDINGS: Mild prominence of the cerebral ventricles and sulci is seen. There are low density areas within the right frontal, parietal and temporal lobes, consistent with a remote right MCA infarct. There is slight Clinical dilatation of the temporal horn of the right ventricle. Low attenuation areas in the periventricular and subcortical white matter is compatible with chronic small vessel ischemic disease. No mass, hemorrhage, extra-axial collection, or mass-effect is seen. The intraorbital contents and globes are normal. The paranasal sinuses are normal. Bilateral mastoid air cells are normal. Bone windows show no evidence of fracture. IMPRESSION: 1. No acute intracranial process. 2. Atrophy and chronic white matter small vessel ischemic change. 3. Remote right MCA infarct. Report Dictated on Final Dictated: 04/12/2018 12:43 pm Dictating Physician: MAICO LIU DO, I Signed Date and Time: 04/12/2018 12:46 pm Signed by: MAICO LIU DO, I Transcribed Date and Time: 04/12/2018 12:43 Normal [facility] Comp Metabolic Panelon 04-12 Alanine aminotransferase (ALT) 21 U/L Normal 13-69 [facility] Comment on above: Performed By: #### H EMDF, CMP3, MG3, TROPN ####[facility] [id number] [place] [address] Alkaline phosphatase (ALP) 58 U/L Normal 38-126 [facility] Comment on above: Performed By: #### H EMDF, CMP3, MG3, TROPN ####[place] [address] [place] [address] Anion gap 4 Normal [facility] Comment on above: Performed By: #### H EMDF, CMP3, MG3, TROPN ####[address] Aspartate aminotransferase (AST) 27 U/L Normal 15-46 [facility] Comment on above: Performed By: #### H EMDF, CMP3, MG3, TROPN ####[address] Calcium 9.5 mg/dL Normal 8.4-10.2 [facility] Comment on above: Performed By: #### H EMDF, CMP3, MG3, TROPN ####[address] CO2 28 mmol/L Normal 22-30 [facility] Comment on above: Performed By: #### H EMDF, CMP3, MG3, TROPN ####[address] Glucose mass conc 113 mg/dL High 70-100 [facility] Comment on above: Performed By: #### H EMDF, CMP3, MG3, TROPN ####[address] Protein 6.9 g/dL Normal 6.3-8.2 [facility] Comment on above: Performed By: #### H EMDF, CMP3, MG3, TROPN ####[address] Urea nitrogen 18 mg/dL Normal 7-20 [facility] Comment on above: Performed By: #### H EMDF, CMP3, MG3, TROPN ####[address] Bilirubin (total) 0.5 mg/dL Normal 0.2-1.3 [facility] Comment on above: Performed By: #### H EMDF, CMP3, MG3, TROPN ####[place] [address] [place], [place] Creatinine 0.70 mg/dL Normal 0.52-1.25 [facility] Comment on above: Performed By: #### H EMDF, CMP3, MG3, TROPN ####[place] [address] [place], [place] eGFR (black) mL/min/{1.73_m2} Normal >60 [facility] Comment on above: Performed By: #### H EMDF, CMP3, MG3, TROPN ####[address] eGFR (non-black) mL/min/{1.73_m2} Normal >60 [facility] Comment on above: Result Comment: Sour ce- MDRD equation with creatinine calibration to IDMS(NKDEP) eGFR not recommended for drug dose adjustment Performed By: #### H EMDF, CMP3, MG3, TROPN ####[address] Albumin 3.8 g/dL Normal 3.5-5.0 [facility] Comment on above: Performed By: #### H EMDF, CMP3, MG3, TROPN ####[address] Chloride 107 mmol/L Normal 98-107 [facility] Comment on above: Performed By: #### H EMDF, CMP3, MG3, TROPN ####[address] Potassium molar conc 4.1 mmol/L Normal 3.5-5.1 [facility] Comment on above: Performed By: #### H EMDF, CMP3, MG3, TROPN ####[address] Sodium 140 mmol/L Normal 137-145 [facility] Comment on above: Performed By: #### H EMDF, CMP3, MG3, TROPN ####[address] Hemogram w/ Autodiffon 04-12 Abs Baso Cnt 0.0 10*3/uL Normal 0.0-0.2 [facility] Comment on above: Performed By: #### H EMDF, CMP3, MG3, TROPN ####[address] Basophils/100 WBC Auto (Bld) 0.4 % Normal 0.0-2.0 [facility] Comment on above: Performed By: #### H EMDF, CMP3, MG3, TROPN ####[address] Eosinophils 0.1 10*3/uL Normal 0.0-0.5 [facility] Comment on above: Performed By: #### H EMDF, CMP3, MG3, TROPN ####[address] Eosinophils/100 leukocytes 1.2 % Normal 1.0-6.0 [facility] Comment on above: Performed By: #### H EMDF, CMP3, MG3, TROPN ####[address] Erythrocyte distribution width Auto Ratio (RBC) 12.6 % Normal 11.5-14.5 [facility] Comment on above: Performed By: #### H EMDF, CMP3, MG3, TROPN ####[address] Erythrocytes (RBC) 4.34 10*6/uL Normal 3.80-5.20 [facility] Comment on above: Performed By: #### H EMDF, CMP3, MG3, TROPN ####[address] Granulocytes/100 WBC (Bld) 58.4 % Normal 40.0-80.0 [facility] Comment on above: Performed By: #### H EMDF, CMP3, MG3, TROPN ####[address] Hematocrit (HCT) 42.4 % Normal 35.0-47.0 [facility] Comment on above: Performed By: #### H EMDF, CMP3, MG3, TROPN ####[address] Hemoglobin mass conc (Bld) 14.7 g/dL Normal 11.7-16.0 [facility] Comment on above: Performed By: #### H EMDF, CMP3, MG3, TROPN ####[address] Lymphocytes 2.1 10*3/uL Normal 1.0-4.3 [facility] Comment on above: Performed By: #### H EMDF, CMP3, MG3, TROPN ####[address] Lymphocytes/100 leukocytes 27.3 % Normal 20.0-40.0 [facility] Comment on above: Performed By: #### H EMDF, CMP3, MG3, TROPN ####[address] MCH 33.8 pg Normal 26.0-34.0 [facility] Comment on above: Performed By: #### H EMDF, CMP3, MG3, TROPN ####[address] MCHC mass conc (RBC) 34.6 % Normal 32.0-36.0 [facility] Comment on above: Performed By: #### H EMDF, CMP3, MG3, TROPN ####[address] MCV 97.7 fL Normal 79.0-98.0 [facility] Comment on above: Performed By: #### H EMDF, CMP3, MG3, TROPN ####[address] Monocytes 1.0 10*3/uL High 0.0-0.8 [facility] Comment on above: Performed By: #### H EMDF, CMP3, MG3, TROPN ####[place] [place], [place] Monocytes/100 leukocytes 12.7 % High 2.0-10.0 [facility] Comment on above: Performed By: #### H EMDF, CMP3, MG3, TROPN ####[place] [address] [place], [place] Neutrophils 4.5 10*3/uL Normal 1.8-7.0 [facility] Comment on above: Performed By: #### H EMDF, CMP3, MG3, TROPN ####[address] Platelet mean volume (PMV) 9.3 fL Normal 7.4-10.4 [facility] Comment on above: Performed By: #### H EMDF, CMP3, MG3, TROPN ####[address] Platelets 214 10*3/uL Normal 140-440 [facility] Comment on above: Performed By: #### H EMDF, CMP3, MG3, TROPN ####[address] WBC (Leukocytes) 7.8 10*3/uL Normal 3.6-10.7 [facility] Comment on above: Performed By: #### H EMDF, CMP3, MG3, TROPN ####[address] Magnesiumon 04-12-2018 Magnesium 2.1 mg/dL Normal 1.6-2.3 [facility] Comment on above: Performed By: #### H EMDF, CMP3, MG3, TROPN ####[address] Troponin Ion 04-12-2018 Troponin I.cardiac mass conc ng/mL Normal 0.000-0.03 4 [facility] Comment on above: Result Comment: 0.04 6 - 0.400 = Indeterminate> 0.400 = Consider Myocardial Injury Performed By: #### H EMDF, CMP3, MG3, TROPN ####[address] [place] [address] Lab Report: Lipid Profileon 10-17-2017 Cholesterol 168 mg/dL Invalid Interpretation Code 200 [employer] Work Phone: [phone] HDL Cholesterol 98 mg/dL Invalid Interpretation Code [employer] Work Phone: [phone] LDL Cholesterol 57 mg/dL Invalid Interpretation Code 0-130 [employer] Work Phone: [phone] Triglyceride 64 mg/dL Invalid Interpretation Code [employer] Work Phone: [phone] very low density lipoproteins 13 mg/dL Invalid Interpretation Code 5-40 [employer] Work Phone: [phone] Lab Report: Liver Profileon 10-17-2017 Alanine aminotransferase (ALT) 20 U/L Invalid Interpretation Code 12-78 [employer] Work Phone: [phone] Albumin 3.4 g/dL Invalid Interpretation Code 3.4-5.0 [employer] Work Phone: [phone] Alkaline phosphatase (ALP) 68 U/L Invalid Interpretation Code 45-117 [employer] Work Phone: [phone] Aspartate aminotransferase (AST) 19 U/L Invalid Interpretation Code 15-37 [employer] Work Phone: [phone] Bilirubin (direct) 0.16 mg/dL Invalid Interpretation Code 0.00-0.30 [employer] Work Phone: [phone] Bilirubin (total) 0.70 mg/dL Invalid Interpretation Code 0.20-1.00 [employer] Work Phone: [phone] Globulin 3.5 g/dL Invalid Interpretation Code 2.2-4.2 [employer] Work Phone: [phone] Protein 6.9 g/dL Invalid Interpretation Code 6.4-8.2 [employer] Work Phone: [phone] Office Visiton 08-05-2017 Documentation of current medications (procedure) Done Invalid Interpretation Code [employer] Phone: [phone] Protein mass conc Done Invalid Interpretation Code [employer] Work Phone: Chart Maintenanceon 08-01-20 17 Left ventricular Ejection fraction 50 % Invalid Interpretation Code [employer] Work Phone: VL ARTERIAL BILATERAL LOWER EXT PVRon 05-16-2017 VL ARTERIAL BILATERAL LOWER EXT PVR ORIGINALREPORT: VL ARTERIAL BILATERAL LOWER EXT PVR INDICATION: Peripheral arterial disease, hypertension, claudication and rest pain . COMPARISON: There are no prior studies available for comparison. FINDINGS: Doppler evaluation of the bilateral lower extremity arterial structures was performed. The bilateral common femoral, superficial femoral, popliteal, posterior tibial, and the dorsalis pedis arteries as well as the digital arteries of the great toes were interrogated. The wave forms are biphasic bilaterally at all levels with in the RIGHT and LEFT legs.. Pressure indices were also performed. Pressure indices are greater than 254 mm Hg within both lower extremity at the high and low thigh and at the calf levels, as well as in the posterior tibial arteries consistent with noncompressible calcified arterial structures. The RIGHT ankle-brachial index equals 1.45 . The LEFT ankle brachial index equals 2.13 Pulse volume recordings were also performed. Pulse volume recordings demonstrate similar amplitude in both legs slightly diminished on the left side at the level of the ankle compared to the right ankle. IMPRESSION: 1. Pressures throughout both lower extremities are greater than 254 mm Hg consistent with calcified noncompressible arterial structures. Evaluation of focal stenosis is therefore not reliable. Consider further evaluation with CT angiography if clinically warranted. Interpreted By: Facundo Treviñoreliminary Report By: Facundo Treviño MDElectronically Signed By: Facundo Treviño MD Dictated Date: 05/16/2017 2:33:13 PM Prelim Date: 05/16/2017 2:33:13 PM Sign Date: 05/16/2017 2:47:04 PM Normal [facility] Office Visiton 04-25-2017 Documentation of current medications (procedure) Done Invalid Interpretation Code [employer] Work Phone: Protein mass conc Done [employer] Work Phone: Lab Report: Lipid Profileon 04-17-2017 Cholesterol in HDL mass conc 83 mg/dL Invalid Interpretation Code [employer] Work Phone: Cholesterol in LDL mass conc 67 mg/dL Invalid Interpretation Code 0-130 [employer] Work Phone: Cholesterol mass conc 162 mg/dL Invalid Interpretation Code 200 [employer] Work Phone: [phone] Lipoprotein.pre-beta mass conc 12 mg/dL Invalid Interpretation Code 5-40 [employer] Work Phone: [phone] Triglyceride mass conc 62 mg/dL Invalid Interpretation Code [employer] Work Phone: [phone] Lab Report: Liver Profileon 04-17-2017 Albumin mass conc 3.5 g/dL Invalid Interpretation Code 3.4-5.0 [employer] Work Phone: [phone] Alkaline phosphatase (ALP) 56 U/L Invalid Interpretation Code 45-117 [facility] Work Phone: [phone] ALP enzyme act/vol (Bld) 56 U/L Invalid Interpretation Code 45-117 [facility] Work Phone: [phone] ALT enzyme act/vol 32 U/L Invalid Interpretation Code 12-78 [facility] Work Phone: [phone] AST enzyme act/vol 26 U/L Invalid Interpretation Code 15-37 [facility] Work Phone: [phone] Bilirubin mass conc 0.70 mg/dL Invalid Interpretation Code 0.20-1.00 [facility] Work Phone: [phone] Bilirubin.direct mass conc 0.19 mg/dL Invalid Interpretation Code 0.00-0.30 [facility] Work Phone: [phone] Globulin 3.6 g/dL High 2.3-3.5 [facility] Work Phone: [phone] Globulin mass conc (S) 3.6 g/dL High 2.3-3.5 [facility] Work Phone: [phone] Protein mass conc 7.1 g/dL Invalid Interpretation Code 6.4-8.2 [facility] Work Phone: [phone] Lab Report: T4 Total, Thyrox inon 10-22-2016 Thyroxine (T4) 13.9 ug/dL Invalid Interpretation Code 4.8-13.9 [facility] Work Phone: [phone] Lab Report: Thyroid Stim Hor jaylyn (TSH)on 10-22-2016 Thyroid stimulating hormone (TSH) 0.97 u[iU]/mL Invalid Interpretation Code 0.358-3.74 [facility] Work Phone: [phone] Lab Report: Lipid Profileon 10-15-2016 Cholesterol 175 mg/dL 200 [facility] Work Phone: [phone] HDL Cholesterol 84 mg/dL [facility] Work Phone: [phone] LDL Cholesterol 76 mg/dL 0-130 [facility] Work Phone: [phone] Triglyceride 76 mg/dL [facility] Work Phone: [phone] very low density lipoproteins 15 mg/dL 5-40 [facility] Work Phone: [phone] Lab Report: Liver Profileon 10-15-2016 Alanine aminotransferase (ALT) 28 U/L 12-78 [facility] Work Phone: [phone] Albumin 3.6 g/dL 3.4-5.0 [facility] Work Phone: [phone] Alkaline phosphatase (ALP) 55 U/L Invalid Interpretation Code 45-117 [facility] Work Phone: [phone] ALP enzyme act/vol (Bld) 55 U/L 45-117 [facility] Work Phone: [phone] Aspartate aminotransferase (AST) 23 U/L 15-37 [facility] Work Phone: [phone] Bilirubin (direct) 0.18 mg/dL 0.00-0.30 [facility] Work Phone: [phone] Bilirubin (total) 0.70 mg/dL 0.20-1.00 [facility] Work Phone: [phone] Globulin 3.7 g/dL High 2.3-3.5 [facility] Work Phone: [phone] Globulin mass conc (S) 3.7 g/dL High 2.3-3.5 [facility] Work Phone: [phone] Protein 7.3 g/dL 6.4-8.2 [facility] Work Phone: [phone] Office Visiton 10-15-2016 Documentation of current medications (procedure) Done Invalid Interpretation Code [facility] Work Phone: Protein mass conc Done [facility] Work Phone: [phone] Tobacco smoking status NHIS Tobacco smoking status NHIS Invalid Interpretation Code [facility] Work Phone: [phone] Tobacco smoking status NHIS Never smoker Invalid Interpretation Code [facility] Work Phone: [phone] Tobacco use CP Never smoker Invalid Interpretation Code [facility] Work Phone: [phone] Replaced Document: Bruce Altamirano 10-15-2016 EKG QRS axis 22 deg Invalid Interpretation Code [facility] Work Phone: [phone] electrocardiogram interpretation Sinus Rhythm Low voltage in precordial leads. ABNORMAL Invalid Interpretation Code [facility] Work Phone: [phone] GE use only - for [employer] import when terms are not otherwise specified 443 ms Invalid Interpretation Code [facility] Work Phone: [phone] Interpretation Sinus Rhythm Low voltage in precordial leads. ABNORMAL Invalid Interpretation Code [facility] Work Phone: [phone] P [place] 60 deg Invalid Interpretation Code [facility] Work Phone: [phone] P wave axis, electrocardiogram 60 deg Invalid Interpretation Code [facility] Work Phone: [phone] MS Interval 200 ms Invalid Interpretation Code [facility] Work Phone: [phone] MS interval, electrocardiogram 200 ms Invalid Interpretation Code [facility] Work Phone: [phone] Pulse (Heart Rate) 63 /min Invalid Interpretation Code [facility] Work Phone: [phone] QRS axis, electrocardiogram 22 deg Invalid Interpretation Code [facility] Work Phone: [phone] QRS Duration 84 ms Invalid Interpretation Code [facility] Work Phone: [phone] QRS duration, electrocardiogram 84 ms Invalid Interpretation Code [facility] Work Phone: [phone] QT Interval new path ms Invalid Interpretation Code [facility] Work Phone: [phone] QT interval, electrocardiogram new path ms Invalid Interpretation Code [facility] Work Phone: [phone] QTc Harris 443 ms Invalid Interpretation Code [facility] Work Phone: T [place] 26 deg Invalid Interpretation Code [facility] Work Phone: [phone] T wave axis, electrocardiogram 26 deg Invalid Interpretation Code [facility] Work Phone: [phone] Lab Report: CBC W/Diff, Auto - EPLAB Onlyon 06-28-2016 Basophils/100 leukocytes 0.8 % Invalid Interpretation Code 0-1 [facility] Work Phone: [phone] Basophils/100 WBC (Bld) 0.8 % 0-1 [facility] Work Phone: [phone] Eosinophils/100 leukocytes 1.0 % Invalid Interpretation Code 0-5 [facility] Work Phone: [phone] Eosinophils/100 WBC (Bld) 1.0 % 0-5 [facility] Work Phone: [phone] Erythrocyte distribution width Ratio (RBC) 11.5 % Low 11.6-14.6 [facility] Work Phone: [phone] Erythrocytes (RBC) 4.52 10*6/uL Invalid Interpretation Code 4.2-5.4 [facility] Work Phone: [phone] Hematocrit (HCT) 44.6 % Invalid Interpretation Code 37-47 [facility] Work Phone: [phone] Hematocrit Volume Fraction (Bld) 44.6 % 37-47 [employer] Work Phone: [phone] Hemoglobin (HGB) 15.1 g/dL High 12.0-15.0 [employer] Work Phone: [phone] Lymphocytes 2.37 X10 3/UL Invalid Interpretation Code 0.83-4.51 [employer] Work Phone: [phone] Lymphocytes #/vol (Bld) 2.37 X10 3/UL 0.83-4.51 [facility] Work Phone: [phone] Lymphocytes/100 leukocytes 23.4 % Invalid Interpretation Code 19-41 [employer] [facility] Work Phone: [phone] Lymphocytes/100 WBC (Bld) 23.4 % - [employer] Work Phone: [phone] MCH 33.3 pg High 27.0-32.0 [facility] Work Phone: [phone] MCH Entitic mass (RBC) 33.3 pg High 27.0-32.0 [facility] Work Phone: [phone] MCHC 33.8 g/dL Invalid Interpretation Code 32-36 [facility] Work Phone: [phone] MCHC mass conc (RBC) 33.8 g/dL 32-[address] [facility] Work Phone: [phone] MCV 98.6 fL Invalid Interpretation Code 81-99 [facility] Work Phone: [phone] MCV Entitic volume (RBC) 98.6 fL 81-99 [facility] Work Phone: [phone] Monocytes/100 leukocytes 8.2 % Invalid Interpretation Code 0-10 [facility] Work Phone: [phone] Monocytes/100 WBC (Bld) 8.2 % 0-10 [facility] Work Phone: [phone] neutrophil count, blood 6.8 X10 3/UL Invalid Interpretation Code 2.0-7.7 [facility] Work Phone: [phone] Neutrophils #/vol (Bld) 6.8 X10 3/UL 2.0-7.7 [facility] Work Phone: [phone] Neutrophils Auto #/vol (Bld) 6.8 X10 3/UL Invalid Interpretation Code 2.0-7.7 [facility] Work Phone: [phone] Neutrophils/100 leukocytes 66.7 % Invalid Interpretation Code 47-70 [facility] Work [phone] Neutrophils/100 WBC (Bld) 66.7 % 47-70 [facility] Work Phone: [phone] Platelet mean volume Entitic volume (Bld) 8.9 fL 6.2-12.0 [facility] Work Phone: [phone] Platelets 149 10*3/mm3 Low 150-450 [facility] Work Phone: [phone] Platelets #/vol (Bld) 149 10*3/mm3 Low 150-450 [facility] Work Phone: [phone] PMV by Sanjiv-Aleisha 8.9 fL Invalid Interpretation Code 6.2-12.0 [employer] Work Phone: [phone] RBC #/vol (Bld) 4.52 10*6/uL 4.2-5.4 [employer] Work Phone: [phone] RDW-CA 11.5 % Low 11.6-14.6 [employer] Work Phone: [phone] WBC #/vol (Bld) 10.2 10*3/uL 4.4-11.0 [employer] Work Phone: [phone] WBC (Leukocytes) 10.2 10*3/uL Invalid Interpretation Code 4.4-11.0 [employer] Work Phone: [phone] Lab Report: [facility] 06-28-2016 Albumin/Globulin Ratio 0.9 {ratio} Invalid Interpretation Code 0.9-2.4 [employer] Work Phone: [phone] Anion gap 8 mmol/L Invalid Interpretation Code 5-15 [employer] Work Phone: [phone] Anion gap 4 molar conc 8 Invalid Interpretation Code 5-15 [employer] [facility] Work Phone: [phone] Anion gap molar conc 8 mmol/L 5-15 [facility] Work Phone: [phone] BUN/Creatinine Ratio 20.8 RATIO High 10-20 [facility] Work Phone: [phone] Calcium 9.0 mg/dL Invalid Interpretation Code 8.5-10.1 [employer] Work Phone: [phone] Chloride 105 mmol/L Invalid Interpretation Code 98-107 [employer] Work Phone: [phone] CO2 24.0 mmol/L Invalid Interpretation Code 21.0-32.0 [employer] Work Phone: [phone] CO2 ppres (BldV) 24.0 mmol/L Invalid Interpretation Code 21.0-32.0 [employer] Work Phone: [phone] Creatinine 0.87 mg/dL Invalid Interpretation Code 0.55-1.20 [employer] Work Phone: [phone] eGFR (non-black) 82 mL/min/{1.73_m2} Invalid Interpretation Code >60 [facility] Work Phone: [phone] eGFR (non-black) 68 mL/min/{1.73_m2} Invalid Interpretation Code >60 [facility] Work Phone: [phone] EST GFR - AA 82 mL/min Invalid Interpretation Code >60 [facility] Work Phone: [phone] Glucose 96 mg/dL Invalid Interpretation Code 70-110 [facility] Work Phone: [phone] Glucose mass conc 96 mg/dL Invalid Interpretation Code 70-110 [facility] Work Phone: [phone] Potassium 4.5 mmol/L Invalid Interpretation Code 3.5-5.1 [facility] Work Phone: [phone] Sodium 137 mmol/L Invalid Interpretation Code 136-145 [facility] Work Phone: [phone] Urea nitrogen 18 mg/dL Invalid Interpretation Code 7-18 [facility] Work Phone: [phone] Lab Report: LDHon 06-28-2016 lactate dehydrogenase - serum 233 U/L Invalid Interpretation Code 84-246 [facility] Work Phone: [phone] LDH 233 U/L Invalid Interpretation Code 84-246 [facility] Work Phone: [phone] Lab Report: Magnesiumon 06-05 Magnesium 2.0 mg/dL Invalid Interpretation Code 1.8-2.4 [facility] Work Phone: [phone] Lab Report: Uric Acidon 06-05 Urate 4.0 mg/dL Invalid Interpretation Code 2.6-6.0 [facility] Work Phone: [phone] 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 Left ventricular Ejection fraction 50 % [facility] Work Phone: [phone] Lab Report: ECBCDon 06-02-20 14 Absolute Neutrophil count 6.5 X10 3/UL Normal 2.0-7.7 [facility] Work Phone: [phone] ANC 6.5 X10 3/UL Normal 2.0-7.7 [facility] Work Phone: Vital Signs Date Time Vital Sign Value Performing Clinician Facility 09-30-2024 15:44-0500 Diastolic blood pressure 62 mm[Hg] Linus Fuchs MD Work Phone: [facility] 09-30-2024 15:44-0500 Heart rate 80 /min Linus Fuchs MD Work Phone: [facility] 09-30-2024 15:44-0500 Respiratory rate 20 /min Linus Fuchs MD Work Phone: [facility] 09-30-2024 15:44-0500 SaO2% (BldA) [Mass fraction] 100 % Linus Fuchs MD Work Phone: [facility] 09-30-2024 15:44-0500 Systolic blood pressure 110 mm[Hg] Linus Fuchs MD Work Phone: [facility] 09-30-2024 12:51-0500 Body temperature 98.1 [degF] Linus Fuchs MD Work Phone: [facility] 09-28-2024 11:00-0500 Body temperature 97.88 [degF] ИВНА LOPEZ DO [facility] 09-28-2024 11:00-0500 Diastolic Blood Pressure Non-Invasive 66 mm[Hg] ИВАН LOPEZ DO [facility] 09-28-2024 11:00-0500 Heart rate 64 /min ИВАН LOPEZ DO [facility] 09-28-2024 11:00-0500 Reason For Taking VItal Signs ИВАН LOPEZ DO [facility] 09-28-2024 11:00-0500 Respiratory rate 16 /min ИВАН LOPEZ DO [facility] 09-28-2024 11:00-0500 Systolic Blood Pressure Non-Invasive 112 mm[Hg] ИВАН LOPEZ DO [facility] 03-25-2024 11:20-0400 Body temperature 98.24 [degF] ИВАН LOPEZ DO [facility] 03-25-2024 11:20-0400 Diastolic Blood Pressure Non-Invasive 74 mm[Hg] ИВАН LOPEZ DO [facility] 03-25-2024 11:20-0400 Heart rate 72 /min ИВАН LOPEZ DO [facility] 03-25-2024 11:20-0400 Respiratory rate 18 /min ИВАН LOPEZ DO [facility] 03-25-2024 11:20-0400 Systolic Blood Pressure Non-Invasive 112 mm[Hg] ИВАН LOPEZ DO [facility] 11-29-2023 16:07-0500 Body temperature 98 [degF] [facility] 11-29-2023 16:07-0500 Diastolic blood pressure 60 mm[Hg] [facility] 11-29-2023 16:07-0500 Heart rate 80 /min [facility] 11-29-2023 16:07-0500 Respiratory rate 16 /min [facility] 11-29-2023 16:07-0500 Systolic blood pressure 116 mm[Hg] [facility] 11-29-2023 15:00-0500 SaO2% (BldA) [Mass fraction] 100 % [facility] 11-29-2023 11:11-0500 Body mass index (BMI) [Ratio] 30.7 kg/m2 [facility] 11-29-2023 11:11-0500 Body weight 78.5 kg [facility] 11-29-2023 10:56-0500 Body height 160.02 cm [facility] 09-24-2023 10:42-0500 Blood Pressure Location ИВАН LOPEZ DO [facility] 09-24-2023 10:42-0500 Blood Pressure Method ИВАН LOPEZ DO [facility] 09-24-2023 10:42-0500 Body temperature 97.34 [degF] ИВАН LOPEZ DO [facility] 09-24-2023 10:42-0500 Diastolic Blood Pressure Non-Invasive 64 mm[Hg] ИВАН JESSICA DO [facility] 09-24-2023 10:42-0500 Heart rate 70 /min ИВАН JESSICA DO [facility] 09-24-2023 10:42-0500 Reason For Taking VItal Signs ИВАН JESSICA [facility] 09-24-2023 10:42-0500 Respiratory rate 18 /min ИВАН LOPEZ DO [facility] 09-24-2023 10:42-0500 Systolic Blood Pressure Non-Invasive 125 mm[Hg] ИВАН LOPEZ DO [facility] 08-05-2017 08:34-0400 BMI (Body Mass Index) 26.26 kg/m2 [facility] Work Phone: 08-05-2017 08:34-0400 BP Diastolic 62 mm[Hg] [facility] Work Phone: 08-05-2017 08:34-0400 BP Systolic 130 mm[Hg] [facility] Work Phone: 08-05-2017 08:34-0400 Height 162.56 cm [facility] Work Phone: 08-05-2017 08:34-0400 Pulse (Heart Rate) 58 /min [facility] Work Phone: 08-05-2017 08:34-0400 Respiratory Rate 16 /min [facility] Work Phone: 08-05-2017 08:34-0400 Weight 69.4 kg [facility] Work Phone: 04-25-2017 14:23-0400 BP Diastolic 64 mm[Hg] [facility] Work Phone: 04-25-2017 14:23-0400 BP Systolic 148 mm[Hg] [facility] Work Phone: 04-25-2017 14:23-0400 Height 162.56 cm [facility] Work Phone: 04-25-2017 14:23-0400 Pulse (Heart Rate) 66 /min [facility] Work Phone: 04-25-2017 14:23-0400 Respiratory Rate 18 /min [facility] Work Phone: 10-15-2016 14:26-0500 Heart rate 63 /min Augusto Carter MD [facility] Work Phone: 10-15-2016 13:41-0500 BMI (Body Mass Index) 26.77 kg/m2 Augusto Carter MD [facility] Work Phone: 10-15-2016 13:41-0500 BP Diastolic 92 mm[Hg] Augusto Carter MD [facility] Work Phone: 10-15-2016 13:41-0500 BP Systolic 150 mm[Hg] Augusto Carter MD [facility] Work Phone: 10-15-2016 13:41-0500 BSA (Body Surface Area) 1.76 m2 Augusto Carter MD [facility] Work Phone: 10-15-2016 13:41-0500 Height 162.56 cm Augusto Carter MD [facility] Work Phone: 10-15-2016 13:41-0500 Pulse (Heart Rate) 66 /min Augusto Carter MD [facility] Work Phone: 10-15-2016 13:41-0500 Respiratory Rate 16 /min Augusto Carter MD [facility] Work Phone: 10-15-2016 13:41-0500 Weight 70.76 kg Augusto Carter MD [facility] Work Phone: 06-28-2016 13:23-0400 Body Temperature 97.2 [degF] Augusto Carter MD [facility] Work Phone: 06-28-2016 13:23-0400 Height 162.56 cm Augusto Carter MD [facility] Work Phone: 06-28-2016 13:23-0400 Pulse Oximetry 96 % Augusto Carter MD [facility] Work Phone: 06-28-2016 13:23-0400 Weight 76.73 kg Augusto Carter MD [facility] Work Phone: 03-23-2016 11:13-0400 Pulse Oximetry 93 % Augusto Carter MD [facility] Work Phone: Encounters Encounter Date Encounter Type Care Provider Facility Start: 09-05-2025 End: 09-05-2025 Emergency department patient visit Иван Lopez Facility:[facility] Start: 08-26-2025 ambulatory ИВАН LOPEZ DO Fac[facility] Start: 06-15-2025 End: 06-19-2025 ambulatory ИВАН LOPEZ DO [facility] Start: 06-15-2025 End: 06-19-2025 Outreach Lab [facility] Elt RN CARDIOLOGY-G[employer] PIT WORKER [facility] Start: 06-14-2025 End: 06-18-2025 ambulatory ИВАН LOPEZ DO [facility] Start: 06-14-2025 End: 06-18-2025 Outreach Lab [facility] RN CARDIOLOGY-[employer] PIT WORKER [facility] Start: 03-31-2025 End: 03-31-2025 ambulatory ИВАН LOPEZ DO [facility] Start: 03-31-2025 End: 03-31-2025 SAME DAY STAY ИВАН LOPEZ DO [facility] Start: 02-26-2025 End: 03-02-2025 ambulatory ИВАН LOPEZ DO [facility] Start: 02-26-2025 End: 03-02-2025 Outreach Lab ИВАН LOPEZ DO [facility] Start: 02-19-2025 End: 02-19-2025 ambulatory ИВАН LOPEZ DO [facility] Start: 12-23-2024 End: 12-23-2024 ambulatory Иван Lopez [facility] Start: 11-18-2024 End: 11-18-2024 ambulatory Иван Lopez Facility:[facility] Start: 10-07-2024 End: 10-11-[address] RAMEZ BRUSH DO [facility] Start: 10-07-2024 End: 10-11-[address] RAMEZ BRUSH DO [facility] Start: 10-06-2024 End: 10-10-2024 ambulatory ИВАН LOPEZ DO [facility] Start: 10-06-2024 End: 10-10-[address] RAMEZ BRUSH DO [facility] Start: 09-30-2024 End: 09-30-2024 Emergency department patient visit Linus Fuchs MD Work Phone: [facility] Comment on above: Closed head injury, initial encounter (Primary Dx); Fall, initial encounter; Vasovagal syncope Start: 09-28-2024 ambulatory Tai Krishna Facility:[facility] Start: 09-28-2024 End: 09-28-2024 SAME DAY STAY ИВАН JESSICA DO [facility] Start: 09-28-2024 End: 09-28-2024 ambulatory ИВАН ALEXANDRAY DO [facility] Start: 09-21-2024 End: 09-21-2024 ambulatory Иван Jessica Facility:[facility] Start: 03-25-2024 End: 03-25-2024 ambulatory ИВАНVERN ALEXANDRAY DO Facility:[facility] Start: 03-25-2024 End: 03-25-2024 SAME DAY STAY ИВАН ALEXANDRAY DO [facility] Start: 03-17-2024 End: 03-18-2024 ambulatory ИВАН ALEXANDRAY DO Facility:[facility] Start: 03-17-2024 End: 03-17-2024 Patient encounter procedure ИВАН RICHARDSONLAY DO [facility] Start: 03-04-2024 End: 03-09-2024 ambulatory ИВАН LOPEZ DO Facility:[facility] Start: 03-04-2024 End: 03-08-2024 Outreach Lab ИВАН LOPEZ DO [facility] Start: 02-04-2024 End: 02-05-2024 ambulatory ИВАН ALEXANDRAY DO Facility:[facility] Start: 02-04-2024 End: 02-04-2024 Patient encounter procedure ИВАН RICHARDSONLAY DO [facility] Start: 01-13-2024 End: 01-14-2024 ambulatory ИВАН ALEXANDRAY DO Facility:[facility] Start: 01-13-2024 End: 01-13-2024 Patient encounter procedure ИВАНVERN RICHARDSONLAY DO [facility] Start: 11-29-2023 End: 11-29-2023 Emergency department patient visit [facility] Work Phone: Start: 09-24-2023 End: 09-24-2023 ambulatory ИВАН LOPEZ DO Facility:[facility] Start: 09-24-2023 End: 09-24-2023 SAME DAY STAY ИВАН LOPEZ DO [facility] Start: 11-30-2022 End: 12-04-2022 Outreach Lab JHON HOOD DO [facility] Start: 11-24-2022 End: 11-28-2022 Outreach Lab JHON HOOD DO [facility] Start: 08-23-2022 End: 08-27-2022 Outreach Lab ИВАН LOPEZ DO [facility] Start: 02-02-2022 End: 02-02-2022 Patient encounter procedure ИВАН LOPEZ DO [facility] Start: 10-23-2021 End: 10-23-2021 Patient encounter procedure ИВАН LOPEZ DO [facility] Start: 04-12-2018 Emergency department patient visit UNKNOWN PROVIDER [facility] Start: 05-16-2017 Ambulatory [facility] Facility: [facility] Date Procedure Procedure Detail Performing Clinician Start: 09-30-2024 End: 09-30-2024 Radex hand 2 views Anthony Richey MD Work Phone: Start: 09-30-2024 Ct cervical spine w/ o contrast material Anthony Richey MD Work Phone: Start: 09-30-2024 Ct head/brain w/o co ntrast material Anthony Richey MD Work Phone: Start: 09-30-2024 Ecg routine ecg w/le ast 12 lds i&r only Anthony Richey MD Work Phone: Start: 09-30-2024 Basic metabolic pane l calcium total Linus Fuchs MD Work Phone: Start: 11-29-2023 SARS-CoV-2, Influenz a & RSV (PCR) Start: 11-29-2023 Plain chest X-ray Start: 11-04-2017 Extraction of cataract ИВАН LOPEZ Comment on above: and right eye as wel l. right Start: 10-17-2017 End: 10-17-2017 *Hepatic Function Panel Augusto Carter MD Work Phone: Start: 10-17-2017 End: 10-17-2017 Lipid panel [AGGREGATE] Augusto Carter MD Work Phone: Start: 08-05-2017 End: 08-05-2017 RUTHANN Carter MD Work Phone: Start: 08-05-2017 End: 08-05-2017 Follow Up Appt 6 months Augusto Carter MD Work Phone: Start: 08-05-2017 End: 08-05-2017 RUTHANN Carter MD Work Phone: Start: 08-05-2017 End: 08-05-2017 Follow Up Appt 6 months Augusto Carter MD Work Phone: Start: 04-25-2017 End: 04-25-2017 RUTHANN Carter MD Work Phone: Start: 04-25-2017 End: 04-25-2017 Follow Up Appt 3 months Augusto Carter MD Work Phone: Start: 04-25-2017 End: 04-26-2017 Venous doppler Augusto Carter MD Work Phone: Start: 04-25-2017 End: 04-25-2017 RUTHANN Carter MD Work Phone: Start: 04-25-2017 End: 04-25-2017 Follow Up Appt 3 months Augusto Carter MD Work Phone: Start: 04-25-2017 End: 04-26-2017 Venous doppler Augusto Carter MD Work Phone: Start: 04-15-2017 End: 04-17-2017 *Hepatic Function Panel Augusto Carter MD Work Phone: Start: 04-15-2017 End: 04-17-2017 Lipid 1996 panel - Serum or Plasma Augusto Carter MD Work Phone: Start: 04-15-2017 End: 04-17-2017 *Hepatic Function Panel Augusto Carter MD Work Phone: Start: 04-15-2017 End: 04-17-2017 Lipid panel [AGGREGATE] Augusto Carter MD Work Phone: Start: 10-15-2016 End: 10-15-2016 DJN Augusto Carter MD Work Phone: Start: 10-15-2016 End: 10-15-2016 Ecg routine ecg w/least 12 lds w/i&r Augusto Carter MD Work Phone: Start: 10-15-2016 End: 10-15-2016 Follow Up Appt 6 months Augusto Carter MD Work Phone: Start: 10-15-2016 End: 10-22-2016 Thyrotropin [Units/volume] in Serum or Plasma Augusto Carter MD Work Phone: Start: 10-15-2016 End: 10-22-2016 Thyroxine (T4) [Mass/volume] in Serum or Plasma Augusto Carter MD Work Phone: Start: 10-15-2016 End: 10-15-2016 RUTHANN Carter MD Work Phone: Start: 10-15-2016 End: 10-15-2016 Electrocardiogram, complete Augusto Carter MD Work Phone: Start: 10-15-2016 End: 10-15-2016 Follow Up Appt 6 months Augusto Carter MD Work Phone: Start: 10-15-2016 End: 10-22-2016 Thyroid stimulating hormone (TSH) Augusto Carter MD Work Phone: Start: 10-15-2016 End: 10-22-2016 Thyroxine (T4) Augusto Carter MD Work Phone: Start: 10-05-2016 End: 10-15-2016 *Hepatic Function Panel Augusto Carter MD Work Phone: Start: 10-05-2016 End: 10-15-2016 Lipid 1996 panel - Serum or Plasma Augusto Carter MD Work Phone: Start: 10-05-2016 End: 10-15-2016 *Hepatic Function Panel Augusto Carter MD Work Phone: Start: 10-05-2016 End: 10-15-2016 Lipid panel [AGGREGATE] Augusto Carter MD Work Phone: Start: 09-03-2016 End: 09-03-2016 Chiropractic manipulative tx spinal 3-4 regions Melissa B Dossi DC Work Phone: Start: 09-03-2016 End: 09-03-2016 Chiropractic manipulation Melissa B Dossi DC Work Phone: Start: 08-27-2016 End: 08-27-2016 Chiropractic manipulative tx spinal 3-4 regions Melissa B Dossi DC Work Phone: Start: 08-27-2016 End: 08-27-2016 Chiropractic manipulation Melissa B Dossi DC Work Phone: Start: 08-20-2016 End: 08-20-2016 Chiropractic manipulative tx spinal 3-4 regions Melissa B Dossi DC Work Phone: Start: 08-20-2016 End: 08-20-2016 Chiropractic manipulation Melissa B Dossi DC Work Phone: Start: 08-16-2016 End: 08-16-2016 Chiropractic manipulative tx spinal 1-2 regions Melissa B Dossi DC Work Phone: Start: 08-16-2016 End: 08-16-2016 Chiropract manj 1-2 regions Melissa B Dossi DC Work Phone: Start: 08-13-2016 End: 08-13-2016 Chiropractic manipulative tx spinal 3-4 regions Melissa B Dossi DC Work Phone: Start: 08-13-2016 End: 08-13-2016 Chiropractic manipulation Melissa B Dossi DC Work Phone: Start: 08-09-2016 End: 08-09-2016 Chiropractic manipulative tx spinal 3-4 regions Melissa B Dossi DC Work Phone: Start: 08-09-2016 End: 08-09-2016 Chiropractic manipulation Melissa B Dossi DC Work Phone: Start: 08-07-2016 End: 08-07-2016 Chiropractic manipulative tx spinal 3-4 regions Melissa B Dossi DC Work Phone: Start: 08-06-2016 End: 08-07-2016 Chiropractic manipulation Melissa B Dossi DC Work Phone: Start: 08-06-2016 End: 08-06-2016 Chiropractic manipulation Melissa B Dossi DC Work Phone: Start: 08-02-2016 End: 08-06-2016 Chiropractic manipulative tx spinal 3-4 regions Melissa B Dossi DC Work Phone: Start: 08-02-2016 End: 08-06-2016 Chiropractic manipulation Melissa B Dossi DC Work Phone: Start: 07-30-2016 End: 07-30-2016 Chiropractic manipulative tx spinal 3-4 regions Melissa B Dossi DC Work Phone: Start: 07-30-2016 End: 07-30-2016 Chiropractic manipulation Melissa B Dossi DC Work Phone: Start: 05-28-2016 End: 06-04-2016 Nuclear stress test -Lexiscan Augusto Carter MD Work Phone: Start: 05-28-2016 End: 06-04-2016 Nuclear stress test -Lexiscan Augusto Carter MD Work Phone: Start: 04-05-2016 End: 04-05-2016 *Hepatic Function Panel Augusto Carter MD Work Phone: Start: 04-05-2016 End: 04-05-2016 Lipid 1996 panel - Serum or Plasma Augusto Carter MD Work Phone: Start: 04-05-2016 End: 04-05-2016 Thyrotropin [Units/volume] in Serum or Plasma Augusto Carter MD Work Phone: Start: 04-05-2016 End: 04-05-2016 Thyroxine (T4) [Mass/volume] in Serum or Plasma Augusto Carter MD Work Phone: Start: 04-05-2016 End: 04-05-2016 *Hepatic Function Panel Augusto Carter MD Work Phone: Start: 04-05-2016 End: 04-05-2016 Lipid panel [AGGREGATE] Augusto Carter MD Work Phone: Start: 04-05-2016 End: 04-05-2016 Thyroid stimulating hormone (TSH) Augusto Carter MD Work Phone: Start: 04-05-2016 End: 04-05-2016 Thyroxine (T4) Augusto Carter MD Work Phone: Start: 03-23-2016 End: 03-23-2016 RUTHANN Carter MD Work Phone: Start: 03-23-2016 End: 03-23-2016 Follow Up Appt 6 months Augusto Carter MD Work Phone: Start: 03-23-2016 End: 03-23-2016 Follow Up BP Check Augusto Carter MD Work Phone: Start: 03-23-2016 End: 03-23-2016 PATRICIAN Augusto Carter MD Work Phone: Start: 03-23-2016 End: 03-23-2016 Follow Up Appt 6 months Augusto Carter MD Work Phone: Start: 03-23-2016 End: 03-23-2016 Follow Up BP Check Augusto Carter MD Work Phone: Start: 11-04-2008 Left eye structure ( body structure) ИВАН LOPEZ DO Comment on above: LASER FOR GLAUCOMA Start: 11-04-2008 Right eye structure (body structure) ИВАН LOPEZ DO Comment on above: LASER FOR GLAUCOMA Start: 11-04-1986 History of right mastectomy ИВАН LOPEZ DO Colonoscopy ИВАН LOPEZ DO Colonoscopy ИВАН LOPEZ DO Comment on above: 07/15/2024 Plan of Treatment Date Care Activity Detail Author Start: 10-01-2033 DTaP/Tdap/Td Vaccines (2 - Td or Tdap) DTaP/Tdap/Td Vaccines (2 - Td or Tdap) [facility] Start: 11-29-2023 [facility] Start: 11-04-2023 Medicare Advantage Annual Wellness Visit Medicare Advantage Annual Wellness Visit [facility] Start: 02-24-2018 End: 02-24-2018 Appointment Appointment [facility] Work Phone: Start: 10-17-2017 End: 04-17-2017 *Hepatic Function Panel *Hepatic Function Panel [facility] Work Phone: Start: 10-17-2017 End: 04-17-2017 Lipid 1996 panel *Lipid Profile CC PCP [facility] Work Phone: Start: 10-17-2017 End: 10-17-2017 *Hepatic Function Panel *Hepatic Function Panel [facility] Work Phone: Start: 10-17-2017 End: 10-17-2017 Lipid panel [AGGREGATE] *Lipid Profile CC PCP [facility] Work Phone: Start: 08-05-2017 End: 08-05-2017 RUTHANN BEAVERS [facility] Work Phone: Start: 08-05-2017 End: 08-05-2017 Follow Up Appt 6 months Follow Up Appt 6 months [facility] Work Phone: Start: 08-05-2017 End: 08-05-2017 Appointment Appointment [facility] Work Phone: Start: 08-05-2017 End: 08-05-2017 RUTHANN BEAVERS [facility] Work Phone: Start: 08-05-2017 End: 08-05-2017 Follow Up Appt 6 months Follow Up Appt 6 months [facility] Work Phone: Start: 07-29-2017 End: 07-29-2017 Appointment Appointment [facility] Work Phone: Start: 04-25-2017 End: 04-25-2017 RUTHANN BEAVERS [facility] Work Phone: Start: 04-25-2017 End: 04-25-2017 Follow Up Appt 3 months Follow Up Appt 3 months [facility] Work Phone: Start: 04-25-2017 End: 04-25-2017 Venous doppler Venous doppler [facility] Work Phone: Start: 04-25-2017 End: 04-25-2017 Appointment Appointment [facility] Work Phone: Start: 04-25-2017 End: 04-25-2017 Appointment Appointment [facility] Work Phone: Start: 04-25-2017 End: 04-25-2017 RUTHANN BEAVERS [facility] Work Phone: Start: 04-25-2017 End: 04-25-2017 Follow Up Appt 3 months Follow Up Appt 3 months [facility] Work Phone: Start: 04-25-2017 End: 04-25-2017 Venous doppler Venous doppler [facility] Work Phone: Start: 04-15-2017 End: 04-17-2017 *Hepatic Function Panel *Hepatic Function Panel [facility] Work Phone: Start: 04-15-2017 End: 04-17-2017 Lipid 1996 panel *Lipid Profile CC PCP [facility] Work Phone: Start: 04-15-2017 End: 04-17-2017 *Hepatic Function Panel *Hepatic Function Panel [facility] Work Phone: Start: 04-15-2017 End: 04-17-2017 Lipid panel [AGGREGATE] *Lipid Profile CC PCP [facility] Work Phone: Start: 10-15-2016 End: 10-15-2016 DJN DJN [facility] Work Phone: Start: 10-15-2016 End: 10-15-2016 Ecg routine ecg w/least 12 lds w/i&r EKG (In office) [facility] Work Phone: Start: 10-15-2016 End: 10-15-2016 Follow Up Appt 6 months Follow Up Appt 6 months [facility] Work Phone: Start: 10-15-2016 End: 10-15-2016 T4 mass conc *T4 (Total) [facility] Work Phone: Start: 10-15-2016 End: 10-15-2016 Thyrotropin Qn *TSH [facility] Work Phone: Start: 10-15-2016 End: 10-15-2016 DJN PATRICIAN [employer] Work Phone: Start: 10-15-2016 End: 10-15-2016 Electrocardiogram, complete EKG (In office) [employer] [facility] Work Phone: Start: 10-15-2016 End: 10-15-2016 Follow Up Appt 6 months Follow Up Appt 6 months [facility] Work Phone: Start: 10-15-2016 End: 10-15-2016 Thyroid stimulating hormone (TSH) *TSH [facility] Work Phone: Start: 10-15-2016 End: 10-15-2016 Thyroxine (T4) *T4 (Total) [facility] Work Phone: Start: 10-05-2016 End: 10-15-2016 *Hepatic Function Panel *Hepatic Function Panel [facility] Work Phone: Start: 10-05-2016 End: 10-15-2016 Lipid 1996 panel *Lipid Profile CC PCP [facility] Work Phone: Start: 10-05-2016 End: 10-15-2016 *Hepatic Function Panel *Hepatic Function Panel [facility] Work Phone: Start: 10-05-2016 End: 10-15-2016 Lipid panel [AGGREGATE] *Lipid Profile CC PCP [facility] Work Phone: Start: 08-27-2016 End: 08-27-2016 Follow up Appt 1x/week Follow up Appt 1x/week [facility] Work Phone: Start: 08-27-2016 End: 08-27-2016 Follow up Appt 1x/week Follow up Appt 1x/week [facility] Work Phone: Start: 08-20-2016 End: 08-20-2016 Follow up Appt 1x/week Follow up Appt 1x/week [facility] Work Phone: Start: 08-20-2016 End: 08-20-2016 Follow up Appt 1x/week Follow up Appt 1x/week [facility] Work Phone: Start: 08-16-2016 End: 08-16-2016 Follow up Appt 1x/week Follow up Appt 1x/week [facility] Work Phone: Start: 08-16-2016 End: 08-16-2016 Follow up Appt 1x/week Follow up Appt 1x/week [facility] Work Phone: Start: 08-13-2016 End: 08-13-2016 Follow up Appt 2x/week Follow up Appt 2x/week [facility] Work Phone: Start: 08-13-2016 End: 08-13-2016 Follow up Appt 2x/week Follow up Appt 2x/week [facility] Work Phone: Start: 08-09-2016 End: 08-09-2016 Follow up Appt 2x/week Follow up Appt 2x/week [facility] Work Phone: Start: 08-09-2016 End: 08-09-2016 Follow up Appt 2x/week Follow up Appt 2x/week [facility] Work Phone: Start: 08-07-2016 End: 08-07-2016 Follow up Appt 3x/week Follow up Appt 3x/week [facility] Work Phone: Start: 08-06-2016 End: 08-07-2016 Follow up Appt 3x/week Follow up Appt 3x/week [facility] Work Phone: Start: 08-06-2016 End: 08-06-2016 Follow up Appt 3x/week Follow up Appt 3x/week [facility] Work Phone: Start: 08-02-2016 End: 08-06-2016 Follow up Appt 3x/week Follow up Appt 3x/week [facility] Work Phone: Start: 08-02-2016 End: 08-06-2016 Follow up Appt 3x/week Follow up Appt 3x/week [facility] Work Phone: Start: 07-30-2016 End: 07-30-2016 Follow up Appt 3x/week Follow up Appt 3x/week [facility] Work Phone: Start: 07-30-2016 End: 07-30-2016 Follow up Appt 3x/week Follow up Appt 3x/week [facility] Work Phone: Start: 07-24-2016 End: 07-24-2016 Follow up Appt 3x/week Follow up Appt 3x/week [facility] Work Phone: Start: 07-24-2016 End: 07-24-2016 Follow up Appt 3x/week Follow up Appt 3x/week [facility] Work Phone: Start: 06-28-2016 End: 05-08-2016 *CBC with Differential *CBC with Differential [facility] Work Phone: Start: 06-28-2016 End: 05-08-2016 *CMP Complete Metabolic Panel *CMP Complete Metabolic Panel [facility] Work Phone: Start: 06-28-2016 End: 05-08-2016 LDH enzyme act/vol *LDH -LDH (Lactate Dehydrogenase) [facility] Work Phone: Start: 06-28-2016 End: 05-08-2016 Magnesium mass conc *Magnesium [facility] Work Phone: Start: 06-28-2016 End: 05-08-2016 Urate mass conc *Uric Acid Blood [facility] Work Phone: Start: 06-28-2016 End: 05-08-2016 *CBC with Differential *CBC with Differential [facility] Work Phone: Start: 06-28-2016 End: 05-08-2016 *CMP Complete Metabolic Panel *CMP Complete Metabolic Panel [facility] Work Phone: Start: 06-28-2016 End: 05-08-2016 Lactate dehydrogenase (LDH) *LDH -LDH (Lactate Dehydrogenase) [facility] Work Phone: Start: 06-28-2016 End: 05-08-2016 Magnesium *Magnesium [facility] Work Phone: Start: 06-28-2016 End: 05-08-2016 Urate *Uric Acid Blood [facility] Work Phone: Start: 05-28-2016 End: 05-28-2016 Nuclear stress test -Lexiscan Nuclear stress test -Lexiscan [facility] Work Phone: Start: 05-28-2016 End: 05-28-2016 Nuclear stress test -Lexiscan Nuclear stress test -Lexiscan [facility] Work Phone: Start: 04-06-2016 End: 04-05-2016 *Hepatic Function Panel *Hepatic Function Panel [facility] Work Phone: Start: 04-06-2016 End: 04-05-2016 Lipid 1996 panel *Lipid Profile CC PCP [facility] Work Phone: Start: 04-06-2016 End: 04-05-2016 T4 mass conc *T4 (Total) [facility] Work Phone: Start: 04-06-2016 End: 04-05-2016 Thyrotropin Qn *TSH [facility] Work Phone: Start: 04-06-2016 End: 04-05-2016 *Hepatic Function Panel *Hepatic Function Panel [facility] Work Phone: Start: 04-06-2016 End: 04-05-2016 Lipid panel [AGGREGATE] *Lipid Profile CC PCP [facility] Work Phone: Start: 04-06-2016 End: 04-05-2016 Thyroid stimulating hormone (TSH) *TSH [facility] Work Phone: Start: 04-06-2016 End: 04-05-2016 Thyroxine (T4) *T4 (Total) [facility] Work Phone: Start: 03-23-2016 End: 03-23-2016 RUTHANN BEAVERS [facility] Work Phone: Start: 03-23-2016 End: 03-23-2016 Follow Up Appt 6 months Follow Up Appt 6 months [facility] Work Phone: Start: 03-23-2016 End: 03-23-2016 Follow Up BP Check Follow Up BP Check [facility] Work Phone: Start: 03-23-2016 End: 03-23-2016 RUTHANN BEAVERS [facility] Work Phone: Start: 03-23-2016 End: 03-23-2016 Follow Up Appt 6 months Follow Up Appt 6 months [facility] Work Phone: Start: 03-23-2016 End: 03-23-2016 Follow Up BP Check Follow Up BP Check [facility] Work Phone: Start: 2015 RSV Immunization for Adults (1 - 1-dose 75+ series) RSV Immunization for Adults (1 - 1-dose 75+ series) [facility] Start: 1952 Depression Monitoring Depression Monitoring [facility] Start: 1940 Screening for osteoporosis Bone Density Scan [facility] Patient Education [facility] Work Phone: Patient referral [facility] Work Phone: Immunizations Immunization Date Immunization Notes Care Provider Patricia tee 09-24-2024 influenza virus vacc ine, unspecified formulation ИВАН LOPEZ DO [facility] 09-24-2024 zoster vaccine recombinant ИВАН LOPEZ DO [facility] 07-21-2024 SARS-CoV-2 (COVID-19 ) [id number] [facility] Comment on above: Result Comment: 2023: [id number] 10-01-2023 tetanus toxoid, redu edita diphtheria toxoid, and acellular pertussis vaccine, adsorbed ИВАН LOPEZ DO [facility] 09-27-2023 zoster vaccine recombinant ИВАН LOPEZ DO [facility] 09-23-2023 influenza virus vacc ine, unspecified formulation ИВАН LOPEZ DO [facility] 09-18-2023 SARS-CoV-2 (COVID-19 ) [id number] ИВАН LOPEZ DO [facility] 08-23-2022 COVID-19, mRNA, LNP- S, bivalent booster, PF, 30 mcg/0.3 mL dose; Translations: [THE EMPTY JOINT COVID-19 (12y+) Bivalent Booster Vaccine PF] ИВАН LOPEZ DO [facility] 08-23-2022 influenza, high dose seasonal, preservative-free ИВАН JESSICA DO [facility] 08-23-2022 SARSCoV2 mRNA([id number]+)biv al vac; Translations: [Pfizer-BioNTech COVID-19 (12y+) Bivalent Booster Vaccine PF] ИВАН JESSICA DO [facility] 09-07-2021 COVID-19, mRNA, LNP- S, PF, 30 mcg/0.3 mL dose; Translations: [Pfizer-BioNTech COVID-19 Vaccine] ИВАН JESSICA DO [facility] 08-11-2021 influenza, high dose seasonal, preservative-free; Translations: [Fluad Quadrivalent PF ] ИВАН LOPEZ DO [facility] 01-31-2021 SARS-CoV-2 mRNA (tozinameran) vaccine ИВАН LOPEZ DO [facility] 01-10-2021 SARS-CoV-2 mRNA (tozinameran) vaccine ИВАН LOPEZ DO [facility] Comment on above: Result Comment: 2020: [id number] 09-09-2020 influenza, injectabl e, quadrivalent, preservative free; Translations: [Fluarix PF Quadrivalent ] ИВАН LOPEZ DO [facility] 09-03-2019 influenza, injectabl e, quadrivalent, preservative free; Translations: [Fluarix PF Quadrivalent ] ИВАН LOPEZ DO [facility] 08-11-2018 influenza virus vacc ine, unspecified formulation ИВАН LOPEZ DO [facility] 08-22-2017 Influenza virus vaccine [facility] 08-22-2017 influenza virus vacc ine, unspecified formulation ИВАН RICHARDSONLAY DO [facility] 08-14-2016 influenza virus vacc ine, unspecified formulation ИВАН JESSICA DO [facility] 07-19-2015 influenza virus vacc ine, unspecified formulation ИВАН RICHARDSONLAY DO [facility] 07-19-2015 pneumococcal conjuga te vaccine, 13 valent ИВАН JESSICA DO [facility] 09-09-2014 influenza virus vacc ine, unspecified formulation ИВАН LOPEZ DO [facility] 08-24-2013 influenza virus vacc ine, unspecified formulation ИВАН RICHARDSONLAY DO [facility] 08-25-2012 influenza virus vacc ine, unspecified formulation ИВАН RICHARDSONLAY DO [facility] 08-04-2012 zoster vaccine, live ИВАН JESSICA DO [facility] 08-03-2012 zoster vaccine, live ИВАН JESSICA DO [facility] 04-04-2008 tetanus and diphther ia toxoids, adsorbed, preservative free, for adult use (5 Lf of tetanus toxoid and 2 Lf of diphtheria toxoid) ИВАН ALEXANDRAY DO [facility] 04-03-2008 tetanus and diphther ia toxoids, adsorbed, preservative free, for adult use (5 Lf of tetanus toxoid and 2 Lf of diphtheria toxoid) ИВАН JESSICA DO [facility] 08-28-2006 pneumococcal polysaccharide vaccine, 23 valent ИВАН LOPEZ DO [facility] Payers Date Payer Category Payer Private Health Insurance [id number] 2025 Unknown 2024 Medicare HMO [employer] [id number] 2023 Self-pay [id number] 2015 Unknown [id number] 1940 Unknown [id number]. 2.627 1940 Unknown [id number] [id number]. 2.627 1940 Unknown [id number] 2.16.840.1.059914.3.579. 2.627 1940 Unknown [id number] 2.16840.1.246420.3.579. 2.627 1940 Unknown [id number] 2.16840.1.391392.3.579. 2.627 1940 Unknown [id number] 2.16840.1.530189.3.579. 2.627 1940 Unknown [id number] 2.16840.1.769526.3.579. 2.627 1940 Unknown [id number] 2.840.1.590781.3.579. 2.627 1940 Unknown [id number] 2.840.1.000532.3.579. 2.627 1940 Unknown [id number] 2.840.1.846429.3.579. 2.627 1940 Unknown [id number] 2.840.1.385542.3.579. 2.627 1940 Unknown [id number] 2.840.1.931104.3.579. 2.627 1940 Unknown [id number] 2.16840.1.752981.3.579. 2.627 1940 Unknown [id number] 2.840.1.389443.3.579. 2.627 1940 Unknown [id number] 2.840.1.378909.3.579. 2.627 Medicare MEDICARE PART A B [id number] Unknown [id number] 2.16840.1.400671.3.579. 2.462 Unknown [id number] 2.16.840.1.896634.3.579. 2.462 Unknown [id number] 2.16.840.1.054112.3.579. 2.462 Unknown [id number] 2.16.840.1.278270.3.579. 2.462 Unknown [id number] 2.16.840.1.714653.3.579. 2.462 Unknown [id number] 2.16.840.1.367925.3.579. 2.462 Social History Date Type Detail Facility Start: 04-07-2021 End: 05-11-2025 Never smoked tobacco (finding) [facility] Start: 1940 Sex Assigned At Female [facility] Start: 11-29-2023 [facility] Start: 05-09-2018 None [facility] Start: 05-09-2018 With Family [facility] Start: 05-23-2018 Non-smoker [facility] Start: 1940 Sex assigned at Not on file [facility] Start: 09-28-2019 End: 06-04-2022 Sex Female (finding) [facility] Gender identity Not on file [facility] Sexual Orientation [facility] Medical Equipment Procedure Code Equipment Code Equipment [...] Unknown Unknown FDA Start: 03-03-2018 Unknown Unknown 5/21/18 Unknown Unknown FDA Start: 03-24-2018 Unknown Unknown 4/30/18 Unknown Unknown FDA Start: 03-03-2018 Unknown Unknown 5/21/18 Unknown Unknown FDA Start: 03-24-2018 Unknown Unknown 4/30/18 Unknown Unknown FDA Start: 03-03-2018 Unknown Unknown 5/21/18 Unknown Unknown FDA Start: 03-24-2018 Unknown Unknown 4/30/18 Unknown Unknown FDA Start: 03-03-2018 Unknown Unknown 5/21/18 Unknown Unknown FDA Start: 03-24-2018 Unknown Unknown 4/30/18 Unknown Unknown FDA Start: 03-03-2018 Unknown Unknown 5/21/18 Unknown Unknown FDA Start: 03-24-2018 Unknown Unknown 4/30/18 Unknown Unknown FDA Start: 03-03-2018 Unknown Unknown 5/21/18 Unknown Unknown FDA Start: 03-24-2018 Unknown Unknown 4/30/18 Unknown Unknown FDA Start: 03-03-2018 Unknown Unknown 5/21/18 Unknown Unknown FDA Start: 03-24-2018 Unknown Unknown 4/30/18 Unknown Unknown FDA Start: 03-03-2018 Unknown Unknown 5/21/18 Unknown Unknown FDA Start: 03-24-2018 Unknown Unknown 4/30/18 Unknown Unknown FDA Start: 03-03-2018 Unknown Unknown 5/21/18 Unknown Unknown FDA Start: 03-24-2018 Unknown Unknown 4/30/18 Unknown Unknown FDA Start: 03-03-2018 Unknown Unknown 5/21/18 Unknown Unknown FDA Start: 03-24-2018 Unknown Unknown 4/30/18 Unknown Unknown FDA Start: 03-03-2018 Unknown Unknown 5/21/18 Unknown Unknown FDA Start: 03-24-2018 Unknown Unknown 4/30/18 Unknown Unknown FDA Start: 03-03-2018 Unknown Unknown 5/21/18 Unknown Unknown FDA Start: 03-24-2018 Unknown Unknown 4/30/18 Unknown Unknown FDA Start: 03-03-2018 Unknown Unknown 5/21/18 Unknown Unknown FDA Start: 03-24-2018 Unknown Unknown 4/30/18 Unknown Unknown FDA Start: 03-03-2018 Unknown Unknown 5/21/18 Unknown Unknown FDA Start: 03-24-2018 Mental Status Date Assessment Result Facility 11-29-2023 Cognitive function Level Of Cons ciousness Awake;Alert;Appropriate;Follow s Commands [facility] Work Phone: 09-24-2023 Mental Status Orientation Oriented x 4 [facility] Clinical Notes 01-13-2024 to 06-18-2025 Discharge Yossi Miller MD - 09/30/2024 12:12 PM Anam Miller MD - 09/30/2024 12:12 PM [facility] Note Date & Type Note Facility 06-18-2025 Note . MICRO - Microbiology PROCEDURE: Stool Culture [^1 *1] SOURCE: Stool BODY SITE: COLLECTED DATE/TIME: 06/15/2025 11:56 EDT RECEIVED DATE/TIME: 06/15/2025 19:48 EDT START DATE/TIME: 06/15/2025 19:48 EDT FREE TEXT SOURCE: FINAL REPORTS Final Report [] Verified Date/Time/Personnel: 06/18/2025 10:08 EDT Normal stool geraldine present. Salmonella: Negative Shigella: Negative Campylobacter: Negative PRELIMINARY REPORTS Preliminary Report [] Verified Date/Time/Personnel: 06/17/2025 09:52 EDT Normal stool geraldine present. Negative for stool pathogens at 48 hours. Final report to follow. Interpretive Data ^1: Culture Stool Requests for alternative pathogens including Yersinia, E. coli 0157, C. difficile toxin, Rotavirus, Giardia and parasites require specific requests. Performing Locations *1: This test was performed at: [facility], [address] [place] [address], [facility] , [facility] 06-16-2025 Note . MICRO - Microbiology PROCEDURE: Shiga Toxins 1 and 2 [[id number]: [id number] ^1 *1] SOURCE: Stool BODY SITE: COLLECTED DATE/TIME: 06/15/2025 19:48 EDT RECEIVED DATE/TIME: 06/15/2025 19:48 EDT START DATE/TIME: 06/15/2025 19:48 EDT FREE TEXT SOURCE: FINAL REPORTS Final Report [] Verified Date/Time/Personnel: 06/16/2025 13:47 EDT Absence of Shiga toxin 1 Absence of Shiga toxin 2 Order Comments O1: Shiga Toxins 1 and 2 ordered by lab as part of Culture Stool Panel Interpretive Data ^1: Shiga Toxins 1 and 2 Testing performed by immunochromatography. Performing Locations *1: This test was performed at: [address], [address] , [facility] 06-16-2025 Note . MICRO - Microbiology PROCEDURE: Urine Culture [*1] SOURCE: Urine, Clean Catch BODY SITE: COLLECTED DATE/TIME: 06/14/2025 16:30 EDT RECEIVED DATE/TIME: 06/14/2025 19:15 EDT START DATE/TIME: 06/14/2025 19:15 EDT FREE TEXT SOURCE: FINAL REPORTS Final Report [] Verified Date/Time/Personnel: 06/16/2025 08:02 EDT >100,000 cfu/ml Escherichia coli PRELIMINARY REPORTS Preliminary Report [] Verified Date/Time/Personnel: 06/15/2025 10:08 EDT >100,000 cfu/ml Escherichia coli BENEDICT to follow Preliminary Report [] Verified Date/Time/Personnel: 06/14/2025 19:59 EDT Specimen received in lab. SUSCEPTIBILITY RESULTS Escherichia coli Antibiotic BENEDICT Dilut BENEDICT Inter Ampicillin <=8 Susceptible Ampicillin/ <=4/2 Susceptible Sulbactam Aztreonam <=4 Susceptible Cefazolin <=2 Susceptible Cefepime <=2 Susceptible Ceftolozane/ <=2 Susceptible Tazobactam Ciprofloxacin <=0.25 Susceptible Ertapenem <=0.5 Susceptible Gentamicin <=2 Susceptible ID Panel Not Not Applicable Applicable Imipenem <=1 Susceptible Levofloxacin <=0.5 Susceptible Meropenem <=1 Susceptible Minocycline <=4 Susceptible Nitrofurantoin <=32 Susceptible Trimethoprim/ <=0.5/9.5 Susceptible Sulfa Performing Locations *1: This test was performed at: [address], [address] , [facility] 06-15-2025 Note . MICRO - Microbiology PROCEDURE: Clostridium difficile Toxin Confirmation [O1 ^1 *1] SOURCE: Stool BODY SITE: COLLECTED DATE/TIME: 06/15/2025 11:56 EDT RECEIVED DATE/TIME: 06/15/2025 19:48 EDT START DATE/TIME: 06/15/2025 19:48 EDT FREE TEXT SOURCE: FINAL REPORTS Final Report [] Verified Date/Time/Personnel: 06/15/2025 21:54 EDT Toxin A/B Confirmation Assay: Negative C. difficile toxin is either absent or below the detection limit of the test. Order Comments O1: Clostridium difficile Toxin Confirmation Order added by [email or web address] Interpretive Data ^1: Clostridium difficile Toxin Confirmation The C.DIFF QUIK CHECK COMPLETE TEST is used to detect C. difficile antigen and toxin(s) in fecal specimens. The test confirms the presence of toxin in feces and this information should be taken under consideration by the physician in light of the clinical history and physical examination of the patient. Fecal specimens are extremely complex. Optimal results with the C. DIFF CHECK COMPLETE test are obtained with specimens that are less than 24 hours old. No data exists on the effects of colonic washes, barium enemas, laxitive, or bowel preperations on the performance of the C. DIFF QUICK CHECK COMPLETE test. All of these procedures can result in extensive dilution or the presence of additives that may affect test performance. Performing Locations *1: This test was performed at: [address], [address] [place] [address] 03-31-2025 Nurse Progress note patient tolerated prolia injection without signs or symptoms of a reaction Digitally Signed by Sara Keith RN on 03/31/2025 11:24 AM [facility] 10-09-2024 Note . MICRO - Microbiology PROCEDURE: Urine Culture [*1] SOURCE: Urine, Clean Catch BODY SITE: COLLECTED DATE/TIME: 10/07/2024 13:43 EST RECEIVED DATE/TIME: 10/07/2024 19:50 EST START DATE/TIME: 10/07/2024 19:50 EST FREE TEXT SOURCE: FINAL REPORTS Final Report [] Verified Date/Time/Personnel: 10/09/2024 08:01 EST No growth at 48 hours. PRELIMINARY REPORTS Preliminary Report [] Verified Date/Time/Personnel: 10/08/2024 09:16 EST No growth to date Performing Locations *1: This test was performed at: [facility], [address] [place] [address], [place], [address]- , [place] [facility] 09-30-2024 Hospital Discharg e instructions Anthony Richey MD - 09/30/2024 2:12 PM EST Please return the emergency department if you develop chest pain shortness of breath nausea vomiting back pain or you pass out documented in this encounter [facility] 09-30-2024 Emergency department Note Emergency Department Encounter [facility] EMERGENCY DEPT Patient: Henry Degroot : 1940 Date of Evaluation: 09/30/2024 ED Supervising Physician: Toi Miller MD I personally evaluated Henry Degroot and made/approved the management plan and take responsibility for the patient management. This will serve as my Supervisory note and shared attestation. I did perform a substantive portion of the visit including all aspects of the Medical Decision Making. I wore appropriate PPE for the entirety of this encounter. In brief, Henry Degroot is a 84 y.o. that presents to the emergency department for evaluation of a near fainting episode after having a bowel movement. States she nearly fell from standing but did not suffer any specific injury. She felt lightheaded. Denies room spinning dizziness or vertigo. Denies weakness numbness tingling of her extremities Focused exam: She is awake and alert. Afebrile. Nontoxic. Patient has a small area of bruising in the right parietal occipital area of her head. Lungs clear to auscultation bilaterally. Heart regular rate and rhythm. Abdomen soft nondistended without focal tenderness. No cervical spine tenderness. Neurologic exam has no gross motor or sensory deficits in all 4 extremities. NIH stroke scale is 0. EKG: Normal sinus rhythm. Rate of 80. Normal axis. No ST segment elevation. No STEMI morphology change. Previous of 04/12/2018. Today's EKG interpreted by this examiner. CT Head shows no acute intracranial hemorrhage. Interpreted by this examiner. X-ray of the pelvis shows no acute fracture or dislocation. Interpreted by this examiner. Brief ED course/MDM: Patient with near syncopal episode where she fell and hit her head. No intracranial hemorrhage. NIH is 0. Do not suspect stroke. I do feel she can follow-up as an outpatient. Return if worse or new symptoms or problems. Diagnostics interpreted by me: Xray(s) chest x-ray as above CT scan(s) head as above EKG; see my interpretation elsewhere in the chart All diagnostic, treatment, and disposition decisions were made by myself in conjunction with the Resident. I also supervised goff portions of any procedures performed by the Resident. For all further details of the patient's emergency department visit, please see their documentation. (Comment: Please note this report has been produced using speech recognition software and may contain errors related to that system including errors in grammar, punctuation, and spelling, as well as words and phrases that may be inappropriate. If there are any questions or concerns please feel free to contact the dictating provider for clarification.) Toi Miller MD Acute [facility] Toi Miller MD 09/30/24 1524 documented in this encounter [facility] 09-30-2024 Physician Emergency department Note Emergency Department Encounter [facility] EMERGENCY DEPT Patient: Henry Degroot : 1940 Date of Evaluation: 09/30/2024 ED Supervising Physician: Toi Miller MD I personally evaluated Henry Degroot and made/approved the management plan and take responsibility for the patient management. This will serve as my Supervisory note and shared attestation. I did perform a substantive portion of the visit including all aspects of the Medical Decision Making. I wore appropriate PPE for the entirety of this encounter. In brief, Henry Degroot is a 84 y.o. that presents to the emergency department for evaluation of a near fainting episode after having a bowel movement. States she nearly fell from standing but did not suffer any specific injury. She felt lightheaded. Denies room spinning dizziness or vertigo. Denies weakness numbness tingling of her extremities Focused exam: She is awake and alert. Afebrile. Nontoxic. Patient has a small area of bruising in the right parietal occipital area of her head. Lungs clear to auscultation bilaterally. Heart regular rate and rhythm. Abdomen soft nondistended without focal tenderness. No cervical spine tenderness. Neurologic exam has no gross motor or sensory deficits in all 4 extremities. NIH stroke scale is 0. EKG: Normal sinus rhythm. Rate of 80. Normal axis. No ST segment elevation. No STEMI morphology change. Previous of 04/12/2018. Today's EKG interpreted by this examiner. CT Head shows no acute intracranial hemorrhage. Interpreted by this examiner. X-ray of the pelvis shows no acute fracture or dislocation. Interpreted by this examiner. Brief ED course/MDM: Patient with near syncopal episode where she fell and hit her head. No intracranial hemorrhage. NIH is 0. Do not suspect stroke. I do feel she can follow-up as an outpatient. Return if worse or new symptoms or problems. Diagnostics interpreted by me: Xray(s) chest x-ray as above CT scan(s) head as above EKG; see my interpretation elsewhere in the chart All diagnostic, treatment, and disposition decisions were made by myself in conjunction with the Resident. I also supervised goff portions of any procedures performed by the Resident. For all further details of the patient's emergency department visit, please see their documentation. (Comment: Please note this report has been produced using speech recognition software and may contain errors related to that system including errors in grammar, punctuation, and spelling, as well as words and phrases that may be inappropriate. If there are any questions or concerns please feel free to contact the dictating provider for clarification.) Toi Miller MD [employer] Toi Miller MD 09/30/24 1524 [place] Phone: 09-28-2024 Nurse Progress note patient tolerated prolia injection without signs or symptoms of a reaction Digitally Signed by Sara Keith RN on 09/28/2024 11:12 AM [facility] 01-13-2024 Note ORIGINAL EXAMINATION: BONE DENSITOMETRY 01/13/2024 10:15 am TECHNIQUE: A bone density dual x-ray absorptiometry (DEXA) scan was performed of the axial (e.g. hips, spine) and/or appendicular (e.g. radius) skeleton as appropriate. COMPARISON: 11/06/2021 HISTORY: ORDERING SYSTEM PROVIDED HISTORY: Reason for Exam: Osteoporosis Screening FINDINGS: BMD (g/cm2) Lumbar Spine L1-L4: 0.750. T Score Lumbar Spine L1-L4: -2.7 BMD (g/cm2) Left Femoral Neck: 0.573. T Score Left Femoral Neck: -2.5 BMD (g/cm2) Left Hip: 0.751. T Score Left Hip: -1.6 BMD Change from previous Hip: 12.8% BMD Change from previous Lumbar spine: 4.6% IMPRESSION: Osteoporosis by WHO criteria. World Health Organization criteria: (Comparing with young normal sex matched population) - Normal: T-score at or above -1 SD (standard deviation) - Osteopenia: T-score between -1 and -2.5 SD - Osteoporosis: T-score at or below -2.5 SD The NOF recommends that FDA-approved medical therapies be considered in post-menopausal women and men age >/= 50 years with a: * Hip or vertebral fracture, or * T-score of /= 20% for major osteoporotic fractures or * >/= 3% for hip fractures All treatment decisions require clinical judgement and consideration of individual patient factors, including patient preferences, comorbidities, previous drug use, risk factors not captured in the FRAX registered model (e.g., frailty, falls, vitamin D deficiency, increased bone turnover, interval significant decline in bone density) and possible under- or over-estimation of fracture risk by FRAX. I have personally reviewed the images of this examination and agree with the resident's findings and interpretation. Interpreted by: Maico Conrad DO Preliminary Report By: Betty Lares Electronically signed By Maico Conrad DO Dictated Date: 01/13/2024 10:17:48 AM Prelim Date: 01/13/2024 10:46:45 AM Sign Date: 01/13/2024 10:46:45 AM Ordering Provider: ИВАН LOPEZ [facility] Evaluation + Plan note Future Appointments Appointment Date:02/09/2022 10:30:00 AM Scheduled Provider:ИВАН LOPEZ DO Location:[facility] Appointment Type:PC OV Future Scheduled TestsBD Bone Density DEXA Axial Skeleton 10/23/21 [facility] Evaluation + Plan note Future Appointments Appointment Date:02/09/2022 10:30:00 AM Scheduled Provider:ИВАН LOPEZ DO Location:[facility] Appointment Type:PC OV [facility] Evaluation + Plan note Future Appointments Appointment Date:02/26/2023 10:30:00 AM Scheduled Provider:ИВАН LOPEZ DO Location:[facility] Appointment Type:PC OV [facility] Evaluation + Plan note Future Appointments Appointment Date:02/26/2023 10:30:00 AM Scheduled Provider:ИВАН LOPEZ DO Location:[facility] Appointment Type:PC OV Future Scheduled TestsUrinalysis 11/27/22Urine Culture 11/27/22 [facility] Evaluation + Plan note Future Appointments Appointment Date:09/25/2023 09:00:00 AM Scheduled Provider:ИВАН LOPEZ DO Location:[facility] Appointment Type:PC [facility] Evaluation + Plan note Future Appointments Appointment Date:02/27/2024 09:30:00 AM Scheduled Provider:ИВАН LOPEZ DO Location:[facility] Appointment Type:PC Wellness [facility] Evaluation + Plan note Future Appointments Appointment Date:08/20/2024 11:00:00 AM Scheduled Provider:ИВАН LOPEZ DO Location:[facility] Appointment Type:PC OV Future Scheduled TestsMA Mammo Screening Left w/ Richard 02/27/24 [facility] Evaluation + Plan note Future Appointments Appointment Date:03/25/2024 11:30:00 AM Scheduled Provider: Location:[facility] Appointment Type:INF Injection - Prolia Appointment Date:08/20/2024 11:00:00 AM Scheduled Provider:ИВАН LOPEZ DO Location:[facility] Appointment Type:PC OV [facility] Evaluation + Plan note Future Appointments Appointment Date:08/20/2024 11:00:00 AM Scheduled Provider:ИВАН LOPEZ DO Location:[facility] Appointment Type:PC OV [facility] Evaluation + Plan note Future Appointments Appointment Date:02/19/2025 10:30:00 AM Scheduled Provider:ИВАН LOPEZ DO Location:[facility] Appointment Type:PC Wellness [facility] Future Scheduled TestsThyroid Stimulating Hormone 02/05/25Complete Blood Count 02/05/25Lipid Profile 02/05/25Vitamin D Level 02/05/25Complete Metabolic Panel 02/05/25 [facility] Evaluation + Plan note Future Appointments Appointment Date:03/03/2026 09:30:00 AM Scheduled Provider:ИВАН LOPEZ DO Location:[facility] Appointment Type:PC Wellness [facility] Enhanced Future Scheduled TestsUrinalysis w/ C&S if Indicated 11/18/24Urine Culture 11/18/24Urine Culture 11/20/24 [facility] Evaluation note No assessment inform ation available [facility] Work Phone: Evaluation note Diagnosis Closed head injury, initial encounter- Primary Fall, initial encounter Vasovagal syncope Syncope and collapse [facility] Narrative No data available for this section [facility] Hospital Discharge instructions No data available for this section [facility] Progress note No data available for this section [facility] Summary Purpose Family History No Family History Records Found Relationship Condition Age at Onset Recorded Date/T saniya father Coronary artery disease Unknown aunt Malignant neoplasm of breast Unknown sister Malignant neoplasm of uterus Unknown Advance Directives No Advanced Directives Records Found Advance Directive Response Recorded Date/ Time Advance Directives Yes May 02 1:35pm Living Will Yes November 29 11:11am Power of Carpenter Repairer Yes November 29, 2023 11:11am Name of Medical Power of Carpenter Repairer GEORGINA DEGROOT November 29, 2023 11:11am Healthcare Agents on File Name Relationship Healthcare Agent [facility] [place] Morales Daughter Health Care Agent Chief Complaint and Reason for Visit Chief Complaint GEN ILLNESS Additional Source Comments INFORMATION SOURCE (unrecogn ized section and content) DATE CREATED AUTHOR 04/30/2018 [facility] [employer] DATE CREATED AUTHOR AUTHOR'S ORGANIZ ATION 05/01/2018 [facility] [employer] DATE CREATED AUTHOR AUTHOR'S ORGANIZ ATION 07/07/2020 [facility] DATE CREATED AUTHOR AUTHOR'S ORGANIZ ATION 03/27/2024 [facility] ([place]) DATE CREATED AUTHOR AUTHOR'S ORGANIZ ATION 10/03/2024 [facility] [employer] [facility] DATE CREATED AUTHOR AUTHOR'S ORGANIZ ATION 08/28/2025 [facility] DATE CREATED AUTHOR AUTHOR'S ORGANIZ ATION 09/16/2025 [facility] Care Team (unrecognized sect ion and content) Team Status: Active Member Role Status Dates Dr. Raquel Dumont MD Family Provider Active Dr. Иван Lopez , Primary Care Provider Active Team Status: Inactive Member Role Status Dates Dr. Иван Lopez DO Primary Care Provider Active Dr. Thomas Mayen DO Emergency Provider Active Bingo Caller Relationship Specialty Start Date End Date Иван Lopez DO 0 [facility] [place] [address] PCP - General Family Medicine 09/30/24 Care Team (unrecognized sect ion and content) Care Team Personnel Name: JOSE STOCKTON Member Role: Chiropractor Address: Address: [address] [place], [place] [address] Name: GRACIELA PEDROZA MD Position: [facility] Physician Member Role: Neurologist Address: Address: [address] [place] [address]- Name: FRANCHESCA BERG MD Member Role: Oncologist Address: Address: [address] [place] [address]- Name: TOI COLMENARES MD Member Role: Inverform Machine Operator Address: Address: [address] [place] [address]- Name: ИВАН LOPEZ DO Position: P4 Physician - Primary Care Member Role: Primary Care Physician Address: Address: [address] [place] [address]- Name: MATT RAMIREZ MD Member Role: Copy Operator Address: Address: [address] [place] [address] [place] Name: MARGARET MORALES MD Member Role: Bleaching Supervisor Address: Address: [address] [address]- Name: MAGDY SYED Member Role: Helicopter Specialist Address: Address: [address] [address]- Name: GROVER FLORES DPM Position: Physician Member Role: Cotton Picker Address: Address: [address] [facility], [address] [facility] [place] [address]- Care Team Related Persons Name: KATIE DEGROOT Name: ISABEL DEGROOT Care Team Personnel Name: JOSE STOCKTON Member Role: Chiropractor Address: Address: [address] [place] [address]- Name: GRACIELA PEDROZA MD Position: [facility] Physician Member Role: Neurologist Address: Address: [address] [place] [address]- Name: FRANCHESCA BERG MD Member Role: Oncologist Address: Address: [address] [place] [address]- Name: TOI COLMENARES MD Member Role: Inverform Machine Operator Address: Address: [address] [place] [address]- Name: ИВАН LOPEZ DO Position: P4 Physician - Primary Care Member Role: Primary Care Physician Address: Address: [address] [place] [address]- [place] Name: MATT RAMIREZ MD Member Role: Copy Operator Address: Address: [address] [place] [address] [place] Name: MARGARET MORALES MD Member Role: Bleaching Supervisor Address: Address: [address] [place] [address]- [place] Name: MAGDY SYED Member Role: Helicopter Specialist Address: Address: [address] [facility] [address] [place] [address]- [place] Name: GROVER FLORES DPM Position: Physician Member Role: Cotton Picker Address: Address: [address] [facility], [address] [facility] [place] [address]- [place] Care Team Related Persons Name: KATIE DEGROOT Name: ISABEL DEGROOT Care Team Personnel Name: JOSE STOCKTON Member Role: Chiropractor Address: Address: [address] [place] [address]- [place] Name: GRACIELA PEDROZA MD Position: [facility] Physician Member Role: Neurologist Address: Address: [address] [place] [address] [place] Name: FRANCHESCA BERG MD Member Role: Oncologist Address: Address: [address] [place] [address]- [place] Name: TOI COLMENARES MD Member Role: Inverform Machine Operator Address: Address: [address] [place] [address]- [place] Name: ИВАН LOPEZ DO Position: Physician - Primary Care Member Role: Primary Care Physician Address: Address: [address] [place] [address]- [place] Name: MATT RAMIREZ MD Member Role: Copy Operator Address: Address: [address] [place] [address] [place] Name: MARGARET MORALES MD Member Role: Bleaching Supervisor Address: Address: [address] [facility] [address] [place] [address]- [place] Name: MAGDY SYED Member Role: Helicopter Specialist Address: Address: [address] [facility] [address] [place] [address]- [place] Name: GROVER FLORES DPM Position: Physician Member Role: Cotton Picker Address: Address: [address] [facility], [address] [facility] [place] [address]- Care Team Related Persons Name: ZANE KATIE O Name: ISABEL DEGROOT Goals (unrecognized section and content) Goals may be documented in a n alternate section Reason for Visit (unrecogniz ed section and content) Reason Comments Fall Pt reports fall from standing after severe dizziness. Pt awake and alert x4 at this time. Pt denies LOC/hit head. Skin injuryto R hand. FOR RECORDS PERTAINING TO PATIENTS WHO ARE [...] BE BASED ON THE PRIMARY CLINICAL RECORDS. [facility] [employer] provides no warranty or guarantee of the accuracy or completeness of information in this document.
[2025-09-21 21:26] LABS: Prothrombin Time (Protime)PT. 18.7 SECONDS (11.7-14.9)
[2025-09-21 21:27] LABS: Partial Thromboplast Time 35.2 Seconds (24.1-36.2)
[2025-09-21 21:28] LABS: Troponin T High Sensitivity 17 ng/L (<=14)
[2025-09-21 21:28] LABS: Mucous, Urine 0 SEEN /hpf (<or=2+)
--- NOTE | 2025-09-21 21:30 | RAD_ITS ---
PROCEDURE: CHEST 1 VIEW (PORTABLE) 09/21/2025 REASON FOR EXAM: CHEST PAIN TECHNIQUE: Frontal view of the chest. COMPARISON: 07/06/2024 FINDINGS: Chronically elevated right hemidiaphragm. No appreciable focal consolidation, pneumothorax or pleural effusion. Cardiac silhouette appears normal in size. Mild degenerative changes of the spine. RAD/Chest 1 View (Portable) IMPRESSION: No evidence of acute cardiopulmonary disease. Chronically elevated right hemidiaphragm, unchanged. Reading Location: [id number]
[2025-09-21 21:31] LABS: Color, Urine Yellow (Yellow); Glucose, Dipstick Normal (Normal); Ketone-Dipstick 50 mg/dl (Negative); Leukocyte Esterase-Dipstick 25 /ul (Negative); Nitrite-Dipstick Negative (Negative); Occult Blood-Urine 10 /ul (Negative); Protein-Dipstick 30 mg/dl (Negative); Specific Gravity, Urine 1.015 (1.002-1.030)
[2025-09-21 21:35] LABS: Anion Gap 14 (5-15); BUN 14 mg/dL (4-19); BUN/Creat Ratio 17.3 RATIO (10-20); Calcium,Total 8.9 mg/dL (7.6-11.0); Carbon Dioxide 19.5 mmol/L (21.0-32.0); Chloride 106 mmol/L (98-108); Estimated Creatinine Clearance 50.03 ml/min (50-250); Glucose 129 mg/dL (70-99); Potassium 3.8 mmol/L (3.3-5.1)
[2025-09-21 21:36] LABS: Urine Bilirubin Dipstick 1 mg/dL (Negative)
[2025-09-21 21:40] LABS: Red Blood Cells-Urine 0-5 SEEN /hpf (0-5); Squamous Epithelial Cells - UA 0-5 SEEN /hpf (5-10)
--- NOTE | 2025-09-21 23:28 | HP.PCM.HOS_ITS ---
HPI - General General Date of Admission: 09/21/25 Date of Service: 09/21/25 Chief Complaint: Generalized weakness and recurrent falls HPI Narrative HENRY DEGROOT, is a 85 F who presented to the emergency department [facility] on 09/21/2025 with chief complaint of generalized weakness and recurrent falls. Patient has previous stroke with some mild residual deficits of left-sided weakness. She has been treated for recurrent UTIs but has had multiple falls over the last week. She did indicate she hit her head is not currently on Eliquis for history of atrial fibrillation. She was last seen in the emergency department on 09/05/2025 at which time she had diarrhea and was following at that point. At that time she was treated with antibiotic for suspected diverticulitis. About 2 days ago she was diagnosed with acute C. difficile colitis and was placed on Fidaxomicin by her primary care physician. She has taken about 1.5 to 2 days of treatment stay her diarrhea has not improved as of yet. She has had decreased oral input with intermittent crampy abdominal pain and nausea and vomiting. She has had no fever or chills. At this time via my ovation her abdomen is benign without any significant tenderness. She does live with her daughter who helps take care of her. She has a known history of atrial fibrillation-follows with cardiology. Overall she is a fairly poor historian and her daughter helps with her history. Patient did describe some intermittent chest pressure however she reports she does not have any at the present time. Vital signs at the time of presentation showed a temperature of 98.2, heart rate 157, respiratory was 24, blood pressure was 108/92 and pulse ox with 95% on room air. CBC shows marked leukocytosis with a left shift having a white count of 20.5 and an 83.8% neutrophilia. Coags are abnormal given Eliquis use. Chemistry panel shows a mild non-anion gap metabolic acidosis with carbon dioxide of 19.5 and I suspect these are related to GI losses. Blood glucose is mildly elevated at 129. Initial troponin was 17 with a delta of 23. EKG shows A-fib with RVR and no ST-T wave changes concerning for acute ischemia. Chest x- ray showed chronically elevated right hemidiaphragm and no acute findings. FOR[facility]LY [facility], [facility] Medical History MRSA (methicillin resistant staph aureus) culture positive Atrial fibrillation Seizures History of fall Wears hearing aid Wears glasses Cancer Depression Walker as ambulation aid Arthritis UTI (urinary tract infection) Loss of consciousness Difficulty swallowing Blood in stool History of diverticulitis Non-smoker CPAP (continuous positive airway pressure) dependence Leg cramps History of pain when walking History of edema Hypertension History of echocardiogram Cardiology follow-up encounter Seizure Paroxysmal atrial fibrillation Macular degeneration Left hemiparesis Cerebrovascular disease Gammopathy 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 Snoring Acute right MCA stroke (02/08/16) Obesity (BMI 30.0-34.9) Home Medications ?Medication ?Instructions ?Recorded ?Last Taken ?Type vit C 250 mg-vit E 90 mg-zinc 40 1 ea PO BID eye vitam in 05/07/18 Unknown History mg-copper 1 [id number] capsule apixaban 5 mg tablet 5 mg PO BID blood thinner #1 80 tabs 12/04/19 07/10/24 09:05 Rx pravastatin 10 mg tablet 10 mg PO QODAY CHOLESTEROL 0 01/12/21 07/08/24 22:55 History calcium carb 133 mg-vitD3 133 1 cap PO DAILY Supplemen t 02/08/22 Unknown History unit-mag amino acid chelate 67mg capsule (Coral Calcium) duloxetine 30 mg capsule,delayed 30 mg PO BID Depressi on 02/08/22 07/10/24 09:00 History release (Cymbalta) denosumab 60 mg/mL subcutaneous 60 mg subcut [id number] Osteoporosis 05/02/23 Unknown History syringe (Prolia) levetiracetam 250 mg tablet 250 mg PO DAILY Seizures 0 07/10/24 Unknown History acetaminophen 500 mg tablet 1,000 mg (2 x 500 mg) PO Q 6H PRN 07/30/24 Unknown Rx PRN Pain Score 1-10 #0 tabs apple cider vinegar 500 mg tablet mg PO 09/21/24 Unkno wn History cholecalciferol (vitamin D3) 125 25 mcg PO QDAY Unknown History mcg (5,000 unit) tablet cyanocobalamin (vitamin B-12) 1,000 mcg PO QDAY Unknown History 1,000 mcg tablet levetiracetam 250 mg tablet 500 mg PO QPM 09/21/24 Unk nown History omega-3 fatty acids-fish oil 435 cap PO 09/21/24 Unkno wn History mg-880 mg capsule (Fish Oil Extra Strength) pegcetacoplan (PF) 15 mg/0.1 mL 15 mg intravitreal Q2M ONTHS Eyes 09/21/24 Unknown History intravitreal solution (Syfovre (PF)) metoprolol succinate 25 mg 12.5 mg (1/2 x 25 mg) PO DA BRET 04/20/25 Unknown Rx tablet,extended release 24 hr blood pressure #45 tabs vancomycin 125 mg capsule 125 mg PO 09/21/25 Unknown H istory Allergy/AdvReac Type Severity Reaction Status Date / Time No Known Allergies Allergy Verified 09/05/25 10:35 Family History Father CAD (coronary artery disease) Aunt Breast cancer Sister Uterine cancer Surgical History History of laser refractive surgery S/P laser cataract surgery History of bilateral cataract extraction History of colonoscopy History of total mastectomy of right breast Social History (Updated 09/22/25 @ 01:[address] Frieda Gallegos DO) household members: family current occupational status: retired Smoking Status: Never smoker alcohol intake: never substance use type: does not use ROS Constitutional Constitutional: Reports fatigue, malaise and weakness; Denies anorexia, change in weight, chills, fever(s), night sweats or other Eyes Eyes: Reports loss of vision; Denies blurry vision, change in eye color, change in vision, discharge from eye(s), double vision, erythema, eye pain or other ENT HEENT: Denies abnormal hearing, dysphagia, ear pain, epistaxis, headache(s), hearing loss, nasal congestion, nasal discharge, post nasal drip, sinus pressure, sore throat or other Cardiovascular Cardiovascular: Reports chest pain; Denies claudication, dyspnea on exertion, edema, lightheadedness, orthopnea, palpitations, paroxysmal nocturnal dyspnea, rapid heart rate, syncope or other Respiratory/Chest Respiratory/Chest: Denies cough, dyspnea, excessive phlegm production, hemoptysis, productive cough, shortness of breath at rest, shortness of breath with exertion, wheezing or other Gastrointestinal Gastrointestinal: Reports diarrhea, nausea and vomiting; Denies abdominal pain, coffee ground emesis, constipation, dyspepsia, hematemesis, hematochezia, loose stools, melena or other Genitourinary Genitourinary: Denies burning urination, difficulty urinating, dysuria, hematuria, nocturia, urinary frequency, urinary hesitancy, urinary incontinence, urinary urgency or other Musculoskeletal Musculoskeletal: Reports joint pain and joint stiffness; Denies arthralgias, back pain, joint swelling, myalgias, neck pain or other Neurologic Neurologic: Reports abnormal gait Psychiatric Psychiatric: Reports depression; Denies anxiety, homicidal ideation, suicidal ideation or other Endocrine Endocrinology: Denies change in body appearance, cold intolerance, excessive sweating, heat intolerance, polydipsia, polyuria or other Hematologic/Lymphatic Hematologic/Lymphatic: Reports easy bleeding and easy bruising; Denies anemia, lymphadenopathy or other Allergic/Immunologic Allergic/Immunologic: Denies rhinitis, hives, eczemia, asthma or other Vital Signs Vital Signs Vital Signs: 09/21/25 20:46 09/21/25 20:51 09/21/25 20:54 Temperature 98.2 F 98.7 F Temperature Source Oral Oral Pulse Rate 202 H 204 H Respiratory Rate 24 H 23 H Respiratory Effort Normal Respiratory Pattern Normal Blood Pressure 108/92 H 108/92 H Blood Pressure Mean 97 97 Pulse Ox 95 98 Oxygen Delivery Method Room Air Room Air 09/21/25 21:01 09/21/25 21:02 09/21/25 21:15 Temperature Temperature Source Pulse Rate 157 H 142 H Respiratory Rate 19 H 20 H Respiratory Effort Respiratory Pattern Blood Pressure Blood Pressure Mean Pulse Ox 99 Oxygen Delivery Method Room Air 09/21/25 22:06 Temperature 98.4 F Temperature Source Oral Pulse Rate 135 H Respiratory Rate 21 H Respiratory Effort Respiratory Pattern Blood Pressure 113/51 L Blood Pressure Mean 71 Pulse Ox 100 Oxygen Delivery Method Weight Weight: 75.5 kg Body Mass Index (BMI) 29.5 Physical Exam Const alert, oriented x3 and no apparent distress Constitutional Narrative: Elderly, white female, sitting up in bed, currently appears comfortable, does not appear overtly toxic but does appear as if she is not feeling well, pleasant, interacts appropriately General Appearance: cooperative HEENT normocephalic and head/scalp atraumatic HEENT Narrative: Moderate hearing loss, Mallampati is 2-3, no thrush, mucous membranes are slightly dry Eyes EOMs intact bilaterally and conjunctivae normal Eyes Narrative: No scleral icterus Neck Neck Narrative: Trachea midline, no thyroid enlargement Resp normal respiratory effort, no retractions, no use of accessory muscles and clear to auscultation bilaterally Auscultation: Negative for rales, rhonchi or wheezes Cardio S1 normal heart sound, S2 normal heart sound, no murmurs, no rub, no gallops and no clicks; Negative for regular rate or regular rhythm Cardio Narrative: Irregular irregular rhythm with rapid rate GI normal to inspection, nondistended, normoactive bowel sounds, soft to palpation and non-tender Extremity no clubbing, cyanosis or edema Extremity Narrative: Pedal pulses and radial pulses are 2+ Neuro moves all extremities Neuro Narrative: Slight left-sided weakness resulting from stroke Speech: speech normal Psych Psych Narrative: Affect is slightly flat, patient makes good eye contact and interacts appropriately, responses are slightly delayed Results Lab / Micro Data 09/21/25 20:53 09/21/25 20:53 Labs: Laboratory Results - last 24 hr 09/21/25 20:53: WBC 20.5 H, RBC 4.36, Hgb 13.4, Hct 42.3, MCV 97.0, MCH 30.7, M CHC 31.7 L, RDW Std Deviation 44.3 H, RDW Coeff of Rich 12.5, Plt Count 415, MPV 10.9, Immature Gran % (Auto) 0.500, Neut % (Auto) 83.8 H, Lymph % (Auto) 8.6 L, Morgan % (Auto) 6.6, Eos % (Auto) 0.1, Baso % (Auto) 0.4, Absolute Neuts (auto) 17.1 H, Absolute Lymphs (auto) 1.76, Nucleated RBC % 0, PT 18.7 H, INR 1.5, APTT 35.2, Sodium 139, Potassium 3.8, Chloride 106, Carbon Dioxide 19.5 L, Anion Gap 14, BUN 14, Creatinine 0.79, Estim Creat Clear Calc 50.03, Est GFR (MDRD) Non-Af 73, BUN/Creatinine Ratio 17.3, Glucose 129 H, Calcium 8.9, Troponin T High Sens 17 H 09/21/25 21:01: Lactic Acid 1.9 09/21/25 21:08: Urine Color Yellow, Urine Clarity Clear, Urine pH 6.0, Ur Specific [place] 1.015, Urine Protein 30 H, Urine Glucose (UA) Normal, Urine Ketones 50 H, Urine Occult Blood 10 H, Urine Nitrite Negative, Urine Bilirubin 1 H, Urine Urobilinogen Normal, Ur Leukocyte Esterase 25 H, Urine RBC 0-5 SEEN, Urine WBC 0-5 SEEN, Ur Squamous Epith Cells 0-5 SEEN, Urine Bacteria 1+, Urine Mucus 0 SEEN Rhythm Strip Rhythm Strip: A-fib Rate: 174 Ectopy: None Imaging Radiology Impression Brain CT 09/21/25 21:04 IMPRESSION: No acute intracranial abnormality. Stable appearing multifocal chronic infarcts in the bilateral cerebral hemispheres. Reading Location: [facility] Pelvis X-Ray 09/21/25 21:04 IMPRESSION: No acute fracture or dislocation. Reading Location: [facility] Chest X-Ray 09/21/25 21:30 IMPRESSION: No evidence of acute cardiopulmonary disease. Chronically elevated right hemidiaphragm, unchanged. Reading Location: [facility] Assessment & Plan Assessment/Plan (1) Recurrent colitis due to Clostridioides difficile: (2) Leukocytosis: (3) Atrial fibrillation with RVR: (4) Chronic anticoagulation: (5) Multiple falls: (6) Generalized weakness: (7) Debility: (8) Elevated troponin: PLAN: Plan A-fib with RVR - Patient has history of paroxysmal A-fib but has been fairly well-controlled on low-dose metoprolol succinate 12.5 mg p.o. daily and Eliquis 5 mg p.o. twice daily - Rate is fairly elevated between 12 03 and 160 - Was initially given Cardizem but rates remain elevated - Will start amiodarone with 150 mg bolus and follow with the drip -Continue home metoprolol - Continue home Eliquis - Check TSH - Will repeat echocardiogram given troponin elevation and intermittent chest discomfort Recurrent C. difficile colitis - Patient has been on antibiotics periodically for reoccurring urinary tract infections - Was tested as positive as an outpatient however not here and on file so we will retest to ensure positivity - Patient was on Fidaxomicin as outpatient that was started on 09/19/2025 by her primary care physician--> will discontinue on admission - Start vancomycin 125 mg every 6 hours liquid - Monitor stool output Leukocytosis - Highly suspect multifactorial related to A-fib with RVR and C. difficile colitis - Monitor trend with treatment of labile Troponin elevation - Patient is a poor historian however does sound like she had some chest discomfort with unclear timing - Will continue to cycle cardiac enzymes - Check echocardiogram - Last echo showed an EF of 55 to 60% with mild aortic valve insufficiency at 1+ and normal wall motion - EKG showed A-fib with RVR but no ST-T wave changes concerning for acute ischemia - Suspect this is likely related to her RVR Fall/generalized weakness/debility - Suspect related to the above - Falls have been recurrent and I suspect patient will either need home health versus placement at the time of discharge -Images taken with no signs of fracture - PT/OT consult pending - Case management/social work consultation for assistance discharge planning 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 - Patient is on chronic anticoagulation with Eliquis for atrial fibrillation Seizure disorder - Continue home Keppra Essential hypertension/hyperlipidemia - Continue home beta-lucinda - Continue home pravastatin Macular degeneration - Patient is undergoing intraocular injections every 2 months - Continue outpatient follow-up Osteoporosis - Is on Prolia as an outpatient every 6 months - Continue cholecalciferol supplementation History of acute right MCA stroke - Mild left-sided weakness as a result - Suspect cardioembolic related to A-fib - Continue Eliquis History of KEVEN - No CPAP available - Order if patient is able to bring in home unit Recurrent UTIs - Would recommend outpatient urology consultation if patient has not already pursued as I do question whether these are true urinary tract infections - Treatment with recurring antibiotics is precipitating recurrent C. difficile and she is going to be at increased risk for recurrent C. difficile even after this given this is her second episode Depression - Continue home Cymbalta DVT prophylaxis - continue home apixaban CODE STATUS - DNR CCA with no intubation as per discussion with patient and her daughter who is POA at the time of admission Charges/Coding Visit Charges Inpatient E&M: 76928 Init Hosp L3
[2025-09-21 23:30] LABS: Troponin T High Sens 2 HR 23 ng/L (<=14)
--- OUTSIDE RECORDS SUMMARY | 2025-09-21 23:58 | XMS RPT_ITS | CCD ---
Author Organization [facility] CliniSyvt Care Team Providers Care Table Worker Packager Name Role Phone Falguni Almendarez Unavailable Unavailable MD Raul, Augusto Shaver Unavailable [phone] Kaela Sam RN Unavailable Unavailable Pop [...] Physician ИВАН LOPEZ DO Primary Care Physician [phone] LYNDSEY LOPEZ DOISTIN Primary Care Unavailable JESSICA DOLYNDSEYИВАН Attending Unavailable JESSICA DOLYNDSEYИВАН Attending Unavailable JESSICA DO ИВАН Primary Care Unavailable JESSICA DO ИВАН Primary Care Unavailable JESSICA DO ИВАН Attending Unavailable JESSICA DO, ИВАН Primary Care Unavailable JESSICA DO, ИВАН Attending Unavailable JESSICA DO, ИВАН Attending Unavailable JESSICA DO ИВАН Primary Care Unavailable JESSICA ASHLEY ВИАН Attending Unavailable LYNDSEY LOPEZ DOISTIN Primary Care [...] JESSICA DO, ИВАН Primary Care Unavailable ROCK DRINK WAITER-FREELANCE MAKEUP ARTIST, LERROXANNE Attending Unavailabl e JESSICA DO, ИВАН Primary Care Unavailable ROCK DRINK WAITER-FREELANCE MAKEUP ARTIST, LERICA Attending Unavailabl e JESSICA DO, ИВАН [...] Drug allergy Fluttering heart (finding), Asthenia (finding) [facility] (16 sources) Alendronate; Translations: [alendronate] Drug Allergy Intolerance, function (observable entity) [facility] [place] Medications Current Medications Medication Drug Class(es) Dates [...] 13 tab(s), 3 Refill(s), [facility]acy: [facility], 163, cm, 08/11/21 9:08:00 EDT, Height, [...] 180 tab(s), 3 Refill(s), [facility]acy: [facility] #[id number], 161, cm, 02/26/25 10:23:00 EDT, Height, 80.1, [...] 180 tab(s), 3 Refill(s), [facility]: [facility] #[id number], 161, cm, 02/27/24 9:43:00 EDT, Height, 78.9, kg, 02/27/24 9:43:00 EDT, Dosing Weight Start Date: 02/27/24 Status: Ordered Start: 02-26-2023 Eliquis 5 mg o ral tablet Dose : 5 mg = 1 tab(s), Oral, BID, # 180 tab(s), 3 Refill(s), [facility]: [facility] #[id number], 161, cm, 02/26/23 10:53:00 EDT, Height, 77.5, kg, 02/26/23 10:39:00 EDT, Dosing Weight Start Date: 02/26/23 Status: Ordered Start: 02-16-2016 End: 12-04-2019 Eliquis 5 mg oral tablet Dos e : 5 mg = 1 tab(s), Oral, BID, # 180 tab(s), 3 Refill(s), Pharmacy: [facility] #[id number], 161, cm, 02/26/23 10:53:00 EDT, Height, 77.5, [...] Refill(s) Start Date: 02/08/22 Status: Ordered Calcium Lqil-P3-Xrryshxlm Liset (Coral Calcium) 133 mg calcium -133 unit-67 mg capsule (1 source) Start: 02-08-2022 take 1 capsule by mouth once daily Calcium Nkqu-B6-Qepjwzyhx Liset (Coral Calcium) 133 mg calcium -133 unit-67 mg capsule Active 1 CAP PO DAILY February 07, 2022 11:00pm cephalexin 500 mg oral capsule (5 sources) Cephalosporin Antibacterial Start: 06-14-2025 End: 06-21-2025 cephalexin 500 mg oral capsule Dose : 500 mg = 1 cap(s), Oral, q8h, X 7 day(s), # 21 cap(s), 0 Refill(s), 06/21/25 12:06:00 PM EDT, Pharmacy: [facility]/pharmacy #[id number], 161, cm, 06/14/25 11:46:00 EDT, Height, [...] 0 Refill(s), 10/13/24 2:33:00 PM EST, [facility]acy: [facility] #[id number], 161, cm, 10/06/24 13:12:00 EST, Height, 79.1, kg, 10/06/24 12:59:00 EST, Dosing Weight Start Date: 10/06/24 Stop Date: 10/13/24 Status: Ordered Start: 08-24-2022 End: 08-31-2022 cephalexin 500 mg oral capsu le Dose : 500 mg = 1 cap(s), Oral, q12h, X 7 day(s), # 14 cap(s), 0 Refill(s), 08/31/22 12:22:00 EDT, Pharmacy: [facility] #[id number], 161, cm, 08/23/22 10:45:00 EDT, Height, 78 [...] neurology, # 60 cap(s), 3 Refill(s), Pharmacy: [facility] #[id number], Depression, 161.5, cm, 02/08/22 15:26:00 EDT, Height [...] tablet by mouth daily OMEGA-3 FATTY ACIDS [id number] Daylin Cespedespie CAM take 1 tablet by chandan th once daily FISH OIL 1000 MG CAPS One tablet by mouth daily OMEGA-3 FATTY ACIDS [id number] Daylin Sloan LPN Garlic preparation (4 sources) [...] th once daily TOPROL XL 25 MG [id number] One half tablet by mouth daily METOPROLOL SUCCINATE [id number] Augusto Carter MD Start: 10-15-2016 take 1 tablet by chandan th once daily TOPROL XL 25 MG [id number]-CFP One tablet by mouth daily METOPROLOL SUCCINATE [id number] Augusto Carter MD Start: 10-15-2016 take 1 tablet by chandan th once daily TOPROL XL 25 MG [id number]-JLJ One half tablet by mouth daily METOPROLOL SUCCINATE [id number] Augusto Carter MD Start: 10-15-2016 take 1 tablet by chandan th once daily TOPROL XL 25 MG [id number]-ZTV One tablet by mouth daily METOPROLOL SUCCINATE [id number] Augusto Carter MD Start: 03-19-2016 End: 10-15-2016 take 1 tablet by mouth once daily TOPROL XL 25 MG [id number]-OVG One tablet by mouth daily METOPROLOL SUCCINATE [id number] Augusto Carter MD Start: 03-19-2016 End: 10-15-2016 take 1 tablet by mouth once daily TOPROL XL 25 MG [id number]-XCY One half tablet by mouth daily METOPROLOL SUCCINATE [id number] Augusto Carter MD Start: 03-19-2016 take 1 tablet by chandan th once daily TOPROL XL 25 MG [id number] One tablet by mouth daily METOPROLOL SUCCINATE [id number] Kaela Sam RN Start: 03-19-2016 take 1 tablet by chandan th once daily TOPROL XL 25 MG [id number]-PIQ One half tablet by mouth daily METOPROLOL SUCCINATE [id number] Augusto Carter MD Start: 03-19-2016 take 1 tablet by chandan th once daily TOPROL XL 25 MG [id number]-[id number] One half tablet by mouth daily METOPROLOL SUCCINATE [id number] Augusto Carter MD Start: 03-19-2016 take 1 tablet by chandan th once daily TOPROL XL 25 MG [id number]-[id number] One tablet by mouth daily METOPROLOL SUCCINATE [id number] Kaelahalley Sam RN Start: 03-19-2016 End: 10-15-2016 take 1 tablet by mouth once daily TOPROL XL 25 MG [id number] One half tablet by mouth daily METOPROLOL SUCCINATE [id number] Augusto Carter MD Start: 03-08-2016 End: 07-10-2017 take 25 mg by mouth once daily Metoprolol Succinate Di scontinued 25 MG PO DAILY March 07, 2016 11:00pm July 10, 2017 9:22am Spearman Q Plus (1 source) Start: 07-13-2019 take 2 tablets by mouth once daily Spearman Q Plus Active 2 TABLET PO DAILY July 12, 2019 11:00pm pravastatin sodium 10 mg oral tablet (20 sources) HMG-CoA Reductase Inhibitor Start: 02-26-2025 pravastatin 10 mg oral tablet Dose : 10 mg = 1 tab(s), Oral, Every other day, # 90 tab(s), 3 Refill(s), Pharmacy: [facility] #[id number], Hypercholesterolem ia, 161, cm, 02/26/25 10:23:00 EDT, Height, kg, 02/26/25 10:10:00 EDT, Dosing Weight Start Date: 02/26/25 Status: Ordered Medication Dispense Status: Completed Quantity: 90.0 Unit: tab(s) Total Allowed Fills: 4 Fills Dispensed: 0 Indications: Pure hypercholesterolem ia, unspecified; Start: 02-27-2024 pravastatin 10 mg oral tablet Dose : 10 mg = 1 tab(s), Oral, Every other day, # 90 tab(s), 3 Refill(s), Pharmacy: [facility] #[id number], Hypercholesterolemia, 161, cm, 02/27/24 9:43:00 EDT, Height, kg, 02/27/24 9:43:00 EDT, Dosing Weight Start Date: 02/27/24 Status: Ordered Start: 01-12-2021 pravastatin 10 mg oral tablet Dose : 10 mg = 1 tab(s), Oral, Every other day, # 90 tab(s), 3 Refill(s), [facility][id number], Hypercholesterolemia, 161, cm, 02/26/23 10:53:00 EDT, Height, [...] MG TAB S on hold PRAVASTATIN SODIUM [id number] Kaela Sam RN Start: 02-16-2016 End: 10-20-2018 [...] 0 Refill(s), 06/26/25 10:34:00 AM EDT, Pharmacy: [facility]/pharmacy #[id number], Diarrhea, 161, cm, 06/14/25 11:46:00 EDT, Height, 76, kg, 06/14/25 11:46:00 EDT, Dosing Weight Start Date: 06/16/25 Stop Date: 06/26/25 Status: Ordered Medication Dispense Status: Completed Quantity: 40.0 Unit: cap(s) Total Allowed Fills: 1 Fills Dispensed: 0 Indications: Diarrhea, unspecified; Vit C,T-Ny-Uzpbt-Lutei n-Zeaxan (1 source) Start: 05-07-2018 Vit C,F-Fn-Cjepx-Lutein -Zeaxan Active 1 EACH PO TWICE A [...] One tablet by mouth daily AMIODARONE HCL [id number] Augusto Carter MD Start: 02-16-2016 End: 03-08-2016 [...] 15, 2016 11:00pm March 08, 2016 8:11am Qrt91-Ime E 100 mg-10 Unit Sfg (1 source) Start: 07-10-2017 End: 02-22-2018 take 1 tablet by mouth every other day Oap31-Dar E 100 mg-10 Unit Sfg Discontinued 1 [...] Ordered docusate sodium 50 mg / sennosides, group home 8.6 mg oral tablet (20 sources) Start: 03-19-2016 End: 03-23-2016 take 2 tablets by mouth once daily as needed, then take 8.6-50 tablets by mouth as needed SENOKOT S 8.6-50 MG TABS 2 tablets by mouth daily, as needed SENNOSIDES-DOCUSATE SODIUM [id number] Augusto Carter MD Start: 03-19-2016 End: 03-23-2016 take 2 tablets by mouth once daily as needed, then take 8.6-50 tablets by mouth as needed SENOKOT S 8.6-50 MG TABS 2 tablets by mouth daily, as needed SENNOSIDES-DOCUSATE SODIUM [id number] Augusto Carter MD Start: 03-19-2016 take 2 tablets by [facility] once daily as needed, then take 8.6-50 tablets by mouth as needed SENOKOT S 8.6-50 MG TABS 2 tablets by mouth daily, as needed SENNOSIDES-DOCUSATE SODIUM [id number] Kaela Sam RN Start: 03-19-2016 take 2 tablets by mo uth once daily as needed, then take 8.6-50 tablets by mouth as needed SENOKOT S 8.6-50 MG TABS 2 tablets by mouth daily, as needed SENNOSIDES-DOCUSATE SODIUM [id number] Kaela Sam RN Start: 03-19-2016 End: 03-23-2016 take 2 tablets by mouth once daily as needed, then take 8.6-50 tablets by mouth as needed SENOKOT S 8.6-50 MG TABS 2 tablets by mouth daily, as needed SENNOSIDES-DOCUSATE SODIUM [id number] Augusto Carter MD Start: 03-08-2016 End: 02-22-2018 [...] /ACT SUSP Take as directed FLUTICASONE PROPIONATE [id number] Kaela Sam RN Start: 03-19-2016 FLONASE 50 MCG /ACT SUSP Take as directed FLUTICASONE PROPIONATE 31363068427 Kaela Sam RN Start: 03-08-2016 End: 02-24-2018 [...] One tablet by mouth daily LUTEIN TABS [id number] Augusto Carter MD Start: 03-23-2016 End: 08-05-2017 take 1 tablet by mouth once daily LUTEIN TABS One tablet by mouth daily LUTEIN TABS [id number] Augusto Carter MD Start: 03-23-2016 End: 08-05-2017 take 1 tablet by mouth once daily LUTEIN TABS One tablet by mouth daily LUTEIN TABS [id number] Augusto Carter MD Start: 03-23-2016 take 1 tablet by chandan th once daily LUTEIN TABS One tablet by mouth daily LUTEIN TABS [id number] Augusto Carter MD meclizine hydrochloride 12.5 mg [...] 10:08am Start: 10-15-2016 take 1 tablet by chandan th three times daily as needed for dizziness MECLIZINE HCL 12.5 MG TABS One tablet by mouth three times daily as needed for dizziness MECLIZINE HCL [id number] Augusto Carter MD [facility] [employer] (5 sources) take 2 tablets by mouth once daily JOINT SUPPORT COMPLEX CAPS Two tablets by mouth daily [facility] [id number] Jaylyn Vázquez Alam MISC NATURAL PRODUCTS (8 sources) take 2 tablets by mouth once daily JOINT SUPPORT COMPLEX CAPS Two tablets by mouth daily [facility] [id number] Jyalyn Vázquez Alaciro MULTIPLE VITAMIN (5 sources) take 1 tablet by mouth once daily MULTIVITAMINS TABS One tablet by mouth daily MULTIPLE VITAMIN [id number] Daylin Sloan LPN MULTIPLE VITAMIN (8 sources) take 1 tablet by mouth once daily MULTIVITAMINS TABS One tablet by mouth daily MULTIPLE VITAMIN 89588957746 Daylin Sloan LPN Multivitamin preparation (1 source) Start: 6 End: 8 Multivitamin Discontinued 1 EACH PO DAILY February 15, 2016 11:00pm February 24, 2018 10:11am nystatin 198786 unt/ml topical cream (6 sources) Polyene Antifungal Start: 4 End: 5 nystatin 100,000 units/g topical cream Apply 1 ruby, Topical, BID, PRN Rash, Apply to the affected area twice daily until healing complete., # 30 gram(s), 1 Refill(s), [id number], Cream, 161, cm, 10/06/24 13:12:00 EST, Height, 79.1, kg, 10/06/24 12:59:00 EST, Dosing Weight Start Date: 10/06/24 Stop Date: 12/05/24 Status: Ordered Medication Dispense Status: Completed Quantity: 30.0 Unit: g Total Allowed Fills: 2 Fills Dispensed: 0 OMEGA-3 FATTY ACIDS (7 sources) take 1 tablet by mouth once daily FISH OIL 1000 MG CAPS One tablet by mouth daily OMEGA-3 FATTY ACIDS [id number] Daylin Sloan WIRE BENDER Spearman-3 Fatty Acids-Fish Oil (1 source) Start: 7 End: 1 take 1 tablet by mouth once daily Spearman-3 Fatty Acids-Fish Oil Discontinued 1 TABLET PO [...] 02-08-2022 Chronic Other aftercare (7 sources) Other longterm (current) drug therapy; Translations: [MCFP (current) use of anticoagulants] Onset: 04-06-2016 04-06-2016 [...] (8 sources) Long-term drug therapy; Translations: [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 Normal [facility] Comment on above: Performed By: #### M 100.636, M200.1000 #### [facility] [place], [address] Culture, Blood (WB)on 2024 CUB Blood cultures x2, f rom two different sites Aerobic Bottle has Gram Positive Cocci in Clusters. Culture, Blood (WB) RESULTS CALLED TO RUPA Ruiz AND SENT TO NURSES STATION ED-RT03 09/06/25 2609 Brenda Lang. REPORT READ BACK. STAPHYLOCOCCUS AUREUS [...] <=10 S Vancomycin Islt BENEDICT 2 S [facility] Comment on above: Performed By: #### M 100.636, M200.1000 #### [facility] [address] [place], [place], [address] BC GPC IDon 09-06-2025 BC GPC ID Copy of report sent to Infection Control Printer [id number] 09/06/25 5586 LEONARDO. Microorganism Spec Cult RESULTS CALLED TO WINDOWS 7 DEPLOYMENT LEADRUPA DEGROOT AND SENT TO ED PRT-03 09/06/25 2179 Brenda Lang. REPORT READ BACK. Microorganism Spec [...] final has been changed. 09/08/25 1259 by [facility] Comment on above: Performed By: #### M 100.636, M200.1000 #### [facility] [address] [place], [place], [id number] 12 Lead EKGon 09-05-2025 12 Lead EKG [facility] Cardiovascular Services [address] [place] [address] 12 Lead EKG 09/05/25 1116 MR#: [id number] Acct: [id number] Name: HENRY DEGROOT Rep #: [id number] : 1940 85 From: Jhon Guan MD [...] Borderline ECG Confirmed by Jhon Guan ([id number]), assignment editor CAS CONTRERAS ([id number]) on 09/06/2025 1:13:27 PM Referred By: Confirmed By: Jhon Guan 09/06/25 1313 Date Jhon Guan MD CC: Dr. Nicci Pineda MD; Dr. Иван Lopez, Signed [facility] Brain/Head without Contrasto n 09-05-2025 Brain/Head without Contrast [facility] Imaging Services [address] [place] [address] Brain/Head without Contrast MR#: [id number] Acct: [id number] Name: HENRY DEGROOT Rep #: [id number] : 1940 F 85 From: Ricardo Jessica MD PCP: Dr. Иван Lopez DO Status: REG ER Study: Brain/Head without Contrast Date of Exam: 12/29 Exam# [id number] Ordering Dr: Nicci Pineda MD EXAM: BRAIN/HEAD [...] an acute, large territorial infarct. There are [id number], diffuse, symmetrical, periventricular and subcortical white matter [...] should additional information be required. Reading Location: [facility] CC: Dr. Nicci Pineda MD; Dr. Иван Lopez DO Print Producer: Signed Normal [facility] CBC W/Diff, Automatedon 11-0 Absolute Lymph 0.62 X10 3/uL Low 0.83-4.51 [facility] Comment on above: Performed By: #### L 503.6005, L100.0100, L500.4050 #### [facility] [address] [place], [address] Absolute Neut 7.0 X10 3/uL Normal 2.0-7.7 [facility] Comment on above: Performed By: #### L 503.6005, L100.0100, L500.4050 #### [facility] [address] [place], [address] Basophils/100 WBC (Bld) 0.2 % Normal 0-1 [facility] Comment on above: Performed By: #### L 503.6005, L100.0100, L500.4050 #### [facility] [address] [place], [address] Eosinophils/100 WBC (Bld) 0.0 % Normal 0-5 [facility] Comment on above: Performed By: #### L 503.6005, L100.0100, L500.4050 #### [facility] [address] [place], [address] Erythrocyte distribution width (RBC) [Ratio] 12.3 % Normal 11.6-14.6 [facility] Comment on above: Performed By: #### L 503.6005, L100.0100, L500.4050 #### [facility] [address] [place], [address] Hematocrit (Bld) [Volume fraction] 36.7 % Low 37-47 [facility] Comment on above: Performed By: #### L 503.6005, L100.0100, L500.4050 #### [facility] [address] [place], [address] Hemoglobin (Bld) [Mass/Vol] 12.3 g/dL Normal 12.0-15.0 [facility] Comment on above: Performed By: #### L 503.6005, L100.0100, L500.4050 #### [facility] [address] [place], [address] IG% 0.500 Normal 0.0-0.9 [facility] Comment on above: Result Comment: IG% - Immature Granulocytes (promyelocytes, myelocytes and metamyelocytes) > 1% indicates that a LEFT SHIFT is Present. Performed By: #### L 503.6005, L100.0100, L500.4050 #### [facility] [address] [place], [address] Lymphocytes/100 WBC (Bld) 7.7 % Low 19-41 [facility] Comment on above: Performed By: #### L 503.6005, L100.0100, L500.4050 #### [facility] [address] [place], [address] MCH (RBC) [Entitic mass] 32.0 pg Normal 27.0-32.0 [facility] Comment on above: Performed By: #### L 503.6005, L100.0100, L500.4050 #### [facility] [address] [place], [address] MCHC (RBC) [Mass/Vol] 33.5 g/dL Normal 32-[address] [facility] Comment on above: Performed By: #### L 503.6005, L100.0100, L500.4050 #### [facility] [address] [place], [address] MCV (RBC) [Entitic vol] 95.6 fL Normal 81-99 [facility] Comment on above: Performed By: #### L 503.6005, L100.0100, L500.4050 #### [facility] [address] [place], [address] Monocytes/100 WBC (Bld) 4.7 % Normal 0-10 [facility] Comment on above: Performed By: #### L 503.6005, L100.0100, L500.4050 #### [facility] [address] [place], [address] Neutrophils/100 WBC (Bld) 86.9 % High 47-70 [facility] Comment on above: Performed By: #### L 503.6005, L100.0100, L500.4050 #### [facility] [address] [place], [address] Nucleated RBC (Bld) [#/Vol] 0 10*3/uL Normal 0-5 [facility] Comment on above: Performed By: #### L 503.6005, L100.0100, L500.4050 #### [facility] [address] [place], [address] Platelet mean volume (Bld) [Entitic vol] 11.0 fL Normal 6.2-12.0 [facility] Comment on above: Performed By: #### L 503.6005, L100.0100, L500.4050 #### [facility] [address] [place], [address] Platelets (Bld) [#/Vol] 240 10*3/uL Normal 150-450 [facility] Comment on above: Performed By: #### L 503.6005, L100.0100, L500.4050 #### [facility] [address] [place], [address] RBC (Bld) [#/Vol] 3.84 10*6/uL Low 4.2-5.4 [facility] Comment on above: Performed By: #### L 503.6005, L100.0100, L500.4050 #### [facility] [address] [place], [address] RDW SD 42.6 fl Normal 35.1-43.9 [facility] Comment on above: Performed By: #### L 503.6005, L100.0100, L500.4050 #### [facility] [address] [place], [address] WBC (Bld) [#/Vol] 8.0 10*3/uL Normal 4.4-11.0 [facility] Comment on above: Performed By: #### L 503.6005, L100.0100, L500.4050 #### [facility] [address] [place], [place], [address] CT Chest, Abd, Pel w/Contras ton 09-05-2025 CT Chest, Abd, Pel w/Contrast [facility] Imaging Services [address] [place] [address] CT Chest, Abd, Pel w/Contrast MR#: [id number] Acct: [id number] Name: HENRY DEGROOT Rep #: [id number] : 1940 F 85 From: Shilo Reed DO PCP: Dr. Иван Lopez DO Status: [facility] ER Study: CT Chest, Abd, Pel w/Contrast Date of Exam: Exam# [id number] Ordering Dr: Nicci Pineda MD PROCEDURE: CT [...] bleeding. Chronic left rib fractures. Reading Location: [facility] CC: Dr. Nicci Pineda MD; Dr. Иван Lopez DO Print Producer: Signed Normal [facility] Comprehensive Metabolic Prof ilon 09-05-2025 Albumin [Mass/Vol] 3.1 g/dL Low 3.4-4.8 [facility] Comment on above: Performed By: #### L 503.6005, L100.0100, L500.4050 #### [facility] [address] [place], [place], [address] Albumin/Globulin [Mass ratio] 1.0 {ratio} Normal 0.9-2.4 [facility] Comment on above: Performed By: #### L 503.6005, L100.0100, L500.4050 #### [facility] [address] [place], [address] ALK PHOS 50 U/L Normal 35-104 [facility] Comment on above: Performed By: #### L 503.6005, L100.0100, L500.4050 #### [facility] [address] [place], [address] ALT [Catalytic activity/Vol] 14 U/L Normal <=34 [facility] Comment on above: Performed By: #### L 503.6005, L100.0100, L500.4050 #### [facility] [address] [place], [address] AST [Catalytic activity/Vol] 21 U/L Normal <=31 [facility] Comment on above: Performed By: #### L 503.6005, L100.0100, L500.4050 #### [facility] [address] [place], [address] Bilirubin [Mass/Vol] 0.74 mg/dL Normal 0.00-1.30 [facility] Comment on above: Performed By: #### L 503.6005, L100.0100, L500.4050 #### [facility] [address] [place], [address] BUN/CRE 20.4 RATIO High 10-20 [facility] Comment on above: Performed By: #### L 503.6005, L100.0100, L500.4050 #### [facility] [address] [place], [address] Calcium [Mass/Vol] 9.0 mg/dL Normal 7.6-11.0 [facility] Comment on above: Performed By: #### L 503.6005, L100.0100, L500.4050 #### [facility] [address] [place], [address] Chloride [Moles/Vol] 101 mmol/L Normal 98-108 [facility] Comment on above: Performed By: #### L 503.6005, L100.0100, L500.4050 #### [facility] [address] [place], [address] CO2 [Moles/Vol] 26.6 mmol/L Normal 21.0-32.0 [facility] Comment on above: Performed By: #### L 503.6005, L100.0100, L500.4050 #### [facility] [address] [place], [address] Creatinine [Mass/Vol] 0.95 mg/dL Normal 0.70-1.[address] [facility] Comment on above: Performed By: #### L 503.6005, L100.0100, L500.4050 #### [facility] [address] [place], [address] ECRCL 42.48 ml/min Low 50-250 [facility] Comment on above: Performed By: #### L 503.6005, L100.0100, L500.4050 #### [facility] [address] [place], [address] GAP 9 Normal 5-15 [facility] Comment on above: Performed By: #### L 503.6005, L100.0100, L500.4050 #### [facility] [address] [place], [address] GFR/1.73 sq M.predicted among non-blacks MDRD (S/P/Bld) [Vol rate/Area] 59 mL/min/{1.73_m2} Low >60 [facility] Comment on above: Result Comment: mL/m in/1.73m2 CKD-EPI Creatinine Equation (2020) Performed By: #### L 503.6005, L100.0100, L500.4050 #### [facility] [address] [place], [address] Globulin (S) [Mass/Vol] 3.0 g/dL Normal 2.2-4.2 [facility] Comment on above: Performed By: #### L 503.6005, L100.0100, L500.4050 #### [facility] [address] [place], [address] Glucose [Mass/Vol] 136 mg/dL High 70-99 [facility] Comment on above: Performed By: #### L 503.6005, L100.0100, L500.4050 #### [facility] [address] [place] [place] [address] Potassium [Moles/Vol] 3.8 mmol/L Normal 3.3-5.[address] [facility] Comment on above: Performed By: #### L 503.6005, L100.0100, L500.4050 #### [facility] [address] [place], [address] Sodium [Moles/Vol] 137 mmol/L Normal 133-145 [facility] Comment on above: Performed By: #### L 503.6005, L100.0100, L500.4050 #### [facility] [address] [place], [address] T PROT 6.2 g/dL Normal 5.9-8.4 [facility] Comment on above: Performed By: #### L 503.6005, L100.0100, L500.4050 #### [facility] [address] [place], [address] Urea nitrogen [Mass/Vol] 19 mg/dL Normal 4-19 [facility] Comment on above: Performed By: #### L 503.6005, L100.0100, L500.4050 #### [facility] [address] [place], [address] Emergency Department Summary on 09-05-2025 Emergency Department Summary [facility] Medical Records Department [address] [place] [address] Emergency Department Summary 09/05/25 MR#: [id number] Acct: [id number] Name: HENRY DEGROOT Rep #: [id number] : 1940 85 From: Nicci Pineda MD [...] She has been able to walk since. [facility] Medical History Atrial fibrillation Seizures History of [...] vitamin 05/07/18 U nknown History mg-copper 1 ig-jnaahs-ndbioa capsule apixaban 5 mg tablet 5 mg [...] denosumab 60 mg/mL subcutaneous 60 mg subcut [id number] Osteoporosis 05/02/23 Unknown History syringe (Prolia) levetiracetam [...] (PF) 15 mg/0.1 mL 15 mg intravitreal [id number] Eyes 1 11/21/23 Unknown History intravitreal solution [...] Never smoker (more content not included)... Normal [facility] Knee 1 or 2 Viewson 09-05-20 Knee 1 or 2 Views [facility] Imaging Services [address] [place] [address] Knee 1 or 2 Views MR#: [id number] Acct: [id number] Name: HENRY DEGROOT Rep #: [id number] : 1940 F 85 From: Juan Alberto Hdz MD PCP: Dr. Иван Lopez DO Status: REG ER Study: Knee 1 or 2 Views Date of Exam: 09/05/25 Exam# [id number] Ordering Dr: Nicci Pineda MD EXAM: XR Right Knee, 1 or 2 Views CLINICAL INDICATION: PAIN, FALL, BRUISING TECHNIQUE: Frontal and/or lateral views of the right knee. COMPARISON: No relevant prior studies available. FINDINGS: BONES/JOINTS: Unremarkable. No acute fracture. No dislocation. SOFT TISSUES: Unremarkable. RAD/Knee 1 or 2 Views IMPRESSION: No acute fracture. Reading Location: [id number] CC: Dr. Nicci Pineda MD; Dr. Иван Lopez DO Print Producer: Signed Normal [facility] L501.4021on 09-05-2025 Trop T High Sen 18 ng/L High <=14 [facility] Comment on above: Performed By: #### M 100.636, M200.1000 #### [facility] [address] [place], [address] Lactic Acidon 09-05-2025 Lactate [Moles/Vol] 1.4 mmol/L Normal 0.0-2.0 [facility] Comment on above: Order Comment: Y Performed By: #### L 503.6005, L100.0100, L500.4050 #### [facility] [address] [place], [address] M100.678on 09-05-2025 M100.678 Pending SARS-CoV-2 (COVID 19) Negative INFLUENZA A Negative INFLUENZA B Negative RSV PCR Negative Normal [facility] Comment on above: Performed By: #### M 100.636, M200.1000 #### [facility] [address] [place], [address] Spine Cervical without Contr ason 09-05-2025 Spine Cervical without Contras [facility] Imaging Services [address] [place] [address] Spine Cervical without Contras MR#: [id number] Acct: [id number] Name: HENRY DEGROOT Wendy Rep #: [id number] : 1940 F 85 From: Ricardo Jessica MD PCP: Dr. Иван Lopez DO Status: REG ER Study: Spine Cervical without Contras Date of Exam: 11/05/24 Exam# [id number] Ordering Dr: Nicci Pineda MD PROCEDURE: SPINE [...] separately dictated on CT chest. [facility] CC: Dr. Nicci Pineda MD; Dr. Иван Lopez DO Print Producer: Signed Normal [facility] Troponin T HS 2 HRon 025 Trop T High Sen 17 ng/L High <=14 [facility] Comment on above: Performed By: #### L 499.0042 #### [facility] [address] [place], [address] Troponin T HS 4 HRon 025 Trop T High Sen Normal <=14 [facility] Comment on above: Result Comment: Canc elled via OM: Ordered Performed By: #### M 100.636, M200.1000 #### [facility] [address] [place], [address] Urinalysis, Completeon 09-05 EPI,SQUAMOUS 0-5 SEEN Normal 5-10 [facility] Comment on above: Order Comment: EFE TER SPECIMEN Performed By: #### L 400.0001, M100.678 ####[facility] [address] [place], [address] WBC 5-10 SEEN Normal 0-5 [facility] Comment on above: Order Comment: EFE TER SPECIMEN Performed By: #### L 400.0001, M100.678 ####[facility] [address] [place], [address] BACTERIA 0 SEEN Normal None Seen [facility] Comment on above: Order Comment: EFE TER SPECIMEN Performed By: #### L 400.0001, M100.678 ####[facility] [address] [place], [address] Mucus Ql (Urine sed) 0 SEEN Normal [facility] Comment on above: Order Comment: EFE TER SPECIMEN Performed By: #### L 400.0001, M100.678 ####[facility] [address] [place], [address] RBC 0 SEEN Normal 0-5 [facility] Comment on above: Order Comment: EFE TER SPECIMEN Performed By: #### L 400.0001, M100.678 ####[facility] [address] [place], [address] CDIFPCRon 06-15-2025 Clostridium difficile PCR Positive Abnormal Negative [facility] Comment on above: Performed By: #### C DIFPCR #### [address] [address] #### STGIPCR #### [place] [address] Clostridium difficile PCR Int See Below Normal [facility] Comment on above: Result Comment: Clinical Interpretation: [...] notified. Performed By: #### C DIFPCR #### [address] [address] #### STGIPCR #### [address] [address] LABORATORYOrdered By: Libby Cleary on 06-15-2025 Adenovirus [...] Microbiology GL SS Sapovirus genogroups I+II+IV+V RNA CHELISE+non-probe Ql (Stl) Not Detected *NA* (06/15/25 11:56 [...] prudencio 1 Absence of Shiga toxin 2 [facility] Comment on above: Testing performed by immunochromatography. Clostridium difficile Toxin Confirmation Toxin A/B Confirmation Assay: Negative C. difficile toxin is either absent or below the detection limit of the test. [facility] Comment on above: The C.DIFF QUIK [...] present. Salmonella: Negative Shigella: Negative Campylobacter: Negative [facility] Comment on above: Requests for alterna tive pathogens including Yersinia, E. coli 0157, C. difficile toxin, Rotavirus, Giardia and parasites require specific requests. Kamryn 06-15-2025 Adenovirus F 40/41 Not detected Normal Not Detected [facility] Comment on above: Performed By: #### C DIFPCR #### [address] [address] #### STGIPCR #### [facility] [address] [place] [address] Astrovirus Not detected Normal Not Detected [facility] Comment on above: Performed By: #### C DIFPCR #### [place] [address] #### STGIPCR #### [facility] [address] [place] [address] Campy (jejuni/coli/ups) Not detected Normal Not Detected [facility] Comment on above: Performed By: #### C DIFPCR #### [address] [address] #### STGIPCR #### [facility] [address] [place] [address] Cryptosporidium Not detected Normal Not Detected [facility] Comment on above: Performed By: #### C DIFPCR #### [address] [address] #### STGIPCR #### [place] [id number] Cyclospora Not detected Normal Not Detected [facility] Comment on above: Performed By: #### C DIFPCR #### [address] [address] #### STGIPCR #### [facility] [address] [place] [address] E. coli (ETEC) Not detected Normal Not Detected [facility] Comment on above: Performed By: #### C DIFPCR #### [address] [address] #### STGIPCR #### [facility] [address] [place] [address] E. coli O157 Not Applicable Normal Not Detected [facility] Comment on above: Performed By: #### C DIFPCR #### [address] [address] #### STGIPCR #### [facility] [address] [place] [address] Entamoeba histolytica Not detected Normal Not Detected [facility] Comment on above: Performed By: #### C DIFPCR #### [address] [address] #### STGIPCR #### [facility] [address] [place] [address] Enteroaggregative E. coli (EAEC) Not detected Normal Not Detected [facility] Comment on above: Performed By: #### C DIFPCR #### [address] [address] #### STGIPCR #### [facility] [address] [place] [address] Enteropathogenic E. coli (EPEC) Detected Abnormal Not Detected [facility] Comment on above: Performed By: #### C DIFPCR #### [address] [address] #### STGIPCR #### [facility] [address] [place] [address] Giardia lamblia Not detected Normal Not Detected [facility] Comment on above: Performed By: #### C DIFPCR #### [address] [address] #### STGIPCR #### [facility] [address] [place] [address] Norovirus GI/GII Not detected Normal Not Detected [facility] Comment on above: Performed By: #### C DIFPCR #### [address] [address] #### STGIPCR #### [facility] [address] [place] [address] Plesiomonas shigelloides Not detected Normal Not Detected [facility] Comment on above: Performed By: #### C DIFPCR #### [address] [address] #### STGIPCR #### [facility] [address] [place] [address] Rotavirus A Not detected Normal Not Detected [facility] Comment on above: Performed By: #### C DIFPCR #### [place] [address] #### STGIPCR #### [facility] [address] [place] [address] Salmonella species, stool Not detected Normal Not Detected [facility] Comment on above: Performed By: #### C DIFPCR #### [place] [address] #### STGIPCR #### [place] [address] Sapovirus I,II,IV,V Not detected Normal Not Detected [facility] Comment on above: Performed By: #### C DIFPCR #### [place] [address] #### STGIPCR #### [facility] [address] [place] [address] Shig Tox E. coli (STEC) Not detected Normal Not Detected [facility] Comment on above: Performed By: #### C DIFPCR #### [address] [address] #### STGIPCR #### [facility] [address] [place], [place] [address] Shigella/Enteroinvasive E. coli (EIEC) Not detected Normal Not Detected [facility] Comment on above: Performed By: #### C DIFPCR #### [place] [address] #### STGIPCR #### [facility] [address] [place] [address] Stool GI Comment See Comment Normal [facility] Comment on above: Result Comment: Viru s, [...] primers. Performed By: #### C DIFPCR #### [place] [address] #### STGIPCR #### [place] [address] Vibrio cholerae Not detected Normal Not Detected [facility] Comment on above: Performed By: #### C DIFPCR #### [place] [address] #### STGIPCR #### [place] [address] Vibrio par/vul/chol Not detected Normal Not Detected [facility] Comment on above: Performed By: #### C DIFPCR #### [place] [address] #### STGIPCR #### [place] [address] Yersinia enterocolitica Not detected Normal Not Detected [facility] Comment on above: Performed By: #### C DIFPCR #### [place] [address] #### STGIPCR #### [place] [address] IMIPENEM:SUSC:PT:ISOLATE:ORD QN:MICon 06-14-2025 Imipenem BENEDICT [Susc] >100,000 cfu/ml Escherichia coli [facility] Imipenem BENEDICT [Susc]on 2024 Escherichia coli Escherichia coli [facility] LABORATORYOrdered By: Joann Lares on 02-26-2025 Albumin DL <= 20 mg/L (U) [Mass/Vol] 3.3 mg/L Invalid Interpretation Code AO ADM SS Albumin/Creatinine DL <= 20 mg/L (U) [Mass ratio] 3 mg/G Normal 0 - 30 mg/G AO Chemistry S Creatinine (U) [Mass/Vol] 101.6 mg/dL Normal 29.0 - 226.0 mg/dL AO ADM SS MALBRon 02-26-2025 U Creatinine 101.6 mg/dL Normal 29.0-226.0 [facility] Comment on above: Performed By: #### M ALBR #### [address] [address] U Microalb 3.3 mg/L Normal [facility] Comment on above: Performed By: #### M ALBR #### [address] [address] U Ratio Alb/Cre 3 mg/G Normal 0-30 [facility] Comment on above: Performed By: #### M ALBR #### [address] [address] .Auto Diffon 02-19-2025 Basophil, Absolute 0.0 10 3/mcL Normal 0.0-0.3 [facility] Comment on above: Performed By: #### C DIFPCR #### [address] [address] #### STGIPCR #### [address] [address] Basophils/100 WBC (Bld) 0.6 % Normal 0.0-2.5 [facility] Comment on above: Performed By: #### C DIFPCR #### [place] [address] #### STGIPCR #### [address] [address] Eosinophil, Absolute 0.2 10 3/mcL Normal 0.0-0.7 [facility] Comment on above: Performed By: #### C DIFPCR #### [place] [address] #### STGIPCR #### [address] [address] Eosinophils/100 WBC (Bld) 2.4 % Normal 0.0-6.0 [facility] Comment on above: Performed By: #### C DIFPCR #### [address] [address] #### STGIPCR #### [address] [address] Lymphocyte, Absolute 1.5 10 3/mcL Normal 0.9-4.3 [facility] Comment on above: Performed By: #### C DIFPCR #### [place] [address] #### STGIPCR #### [address] [address] Lymphocytes/100 WBC (Bld) 22.0 % Normal 20.0-40.0 [facility] Comment on above: Performed By: #### C DIFPCR #### [place] [address] #### STGIPCR #### [address] [address] Monocyte, Absolute 0.7 10 3/mcL Normal 0.1-1.4 [facility] Comment on above: Performed By: #### C DIFPCR #### [place] [id number] #### STGIPCR #### [address] [address] Monocytes/100 WBC (Bld) 10.3 % Normal 2.0-13.0 [facility] Comment on above: Performed By: #### C DIFPCR #### [place] [address] #### STGIPCR #### [address] [address] Neutrophils/100 WBC (Bld) 64.7 % Normal 50.0-75.0 [facility] Comment on above: Performed By: #### C DIFPCR #### [place] [id number] #### STGIPCR #### [address] [address] .GFRon 02-19-2025 Estimated Glomerular Filtration Rate 65 ml/min/1.73sqm Normal [facility] Comment on above: Result Comment: Stages of [...] results. Performed By: #### C DIFPCR #### [place] [id number] #### STGIPCR #### [place] [address] .NEUABSon 02-19-2025 Neutrophil, Absolute 4.4 10 3/mcL Normal 2.3-8.1 [facility] Comment on above: Performed By: #### C DIFPCR #### [place] [id number] #### STGIPCR #### [place] [address] CBCon 02-19-2025 Erythrocyte distribution width (RBC) [Ratio] 13.7 % Normal 11.5-15.5 [facility] Comment on above: Performed By: #### C BC, ANEU, VIDH, GFR, LIPID, CMP, TSH, ADIFF #### [address] [address] Hematocrit (Bld) [Volume fraction] 41.4 % Normal 34.0-46.0 [facility] Comment on above: Performed By: #### C BC, ANEU, VIDH, GFR, LIPID, CMP, TSH, ADIFF #### [address] [address] Hgb 14.0 G/dL Normal 12.0-16.0 [facility] Comment on above: Performed By: #### C BC, ANEU, VIDH, GFR, LIPID, CMP, TSH, ADIFF #### [address] [address] MCH (RBC) [Entitic mass] 32.3 pg Normal 27.0-33.0 [facility] Comment on above: Performed By: #### C BC, ANEU, VIDH, GFR, LIPID, CMP, TSH, ADIFF #### [address] [address] MCHC 33.7 G/dL Normal 32.0-36.0 [facility] Comment on above: Performed By: #### C BC, ANEU, VIDH, GFR, LIPID, CMP, TSH, ADIFF #### [address] [address] MCV (RBC) [Entitic vol] 95.7 fL Normal 80.0-99.0 [facility] Comment on above: Performed By: #### C BC, ANEU, VIDH, GFR, LIPID, CMP, TSH, ADIFF #### [address] [address] Platelet 244 10 3/mcL Normal 150-450 [facility] Comment on above: Performed By: #### C BC, ANEU, VIDH, GFR, LIPID, CMP, TSH, ADIFF #### [address] [address] Platelet mean volume (Bld) [Entitic vol] 10.0 fL Normal 6.6-10.5 [facility] Comment on above: Performed By: #### C BC, ANEU, VIDH, GFR, LIPID, CMP, TSH, ADIFF #### [address] [address] RBC 4.32 10 6/mcL Normal 4.10-5.30 [facility] Comment on above: Performed By: #### C BC, ANEU, VIDH, GFR, LIPID, CMP, TSH, ADIFF #### [address] [address] WBC 6.8 10 3/mcL Normal 4.5-10.8 [facility] Comment on above: Performed By: #### C BC, ANEU, VIDH, GFR, LIPID, CMP, TSH, ADIFF #### [address] [address] CMPon 02-19-2025 Albumin Level 2.9 G/dL Low 3.4-4.8 [facility] Comment on above: Performed By: #### C DIFPCR #### [place] [address] #### STGIPCR #### [address] [address] Albumin/Globulin [Mass ratio] 0.7 {ratio} Low 1.1-2.5 [facility] Comment on above: Performed By: #### C DIFPCR #### [place] [address] #### STGIPCR #### [place] [address] ALP [Catalytic activity/Vol] 63 U/L Normal 40-135 [facility] Comment on above: Performed By: #### C DIFPCR #### [place] [address] #### STGIPCR #### [address] [address] ALT [Catalytic activity/Vol] 14 U/L Normal 14-59 [facility] Comment on above: Performed By: #### C DIFPCR #### [place] [address] #### STGIPCR #### [address] [address] AST [Catalytic activity/Vol] 24 U/L Normal 10-40 [facility] Comment on above: Performed By: #### C DIFPCR #### [place] [address] #### STGIPCR #### [place] [id number] Bili Total 0.6 mg/dL Normal 0.2-1.0 [facility] Comment on above: Result Comment: Use of this assay is not recommended for patients undergoing treatment with eltrombopag due to the potential for falsely elevated results. Performed By: #### C DIFPCR #### [place] [address] #### STGIPCR #### [address] [address] BUN/Creatinine Ratio 25 ratio Normal 7-27 [facility] Comment on above: Performed By: #### C DIFPCR #### [place] [address] #### STGIPCR #### [address] [address] Calcium [Mass/Vol] 9.6 mg/dL Normal 8.4-10.2 [facility] Comment on above: Performed By: #### C DIFPCR #### [place] [address] #### STGIPCR #### [address] [address] Chloride [Moles/Vol] 104 mmol/L Normal 98-107 [facility] Comment on above: Performed By: #### C DIFPCR #### [place] [address] #### STGIPCR #### [address] [address] CO2 [Moles/Vol] 31 mmol/L Normal 23-31 [facility] Comment on above: Performed By: #### C DIFPCR #### [place] [address] #### STGIPCR #### [address] [address] Creatinine [Mass/Vol] 0.88 mg/dL Normal 0.55-1.02 [facility] Comment on above: Result Comment: Test ing performed on Siemens Dimension EXL analyzer using a modified kinetic Cecilio technique. Performed By: #### C DIFPCR #### [address] [address] #### STGIPCR #### [address] [address] Electrolyte Balance 3.0 mEq/L Low 4.0-15.0 [facility] Comment on above: Performed By: #### C DIFPCR #### [address] [address] #### STGIPCR #### [address] [address] Globulin 4.0 G/dL High 1.5-3.8 [facility] Comment on above: Performed By: #### C DIFPCR #### [place] [address] #### STGIPCR #### [address] [address] Glucose [Mass/Vol] 87 mg/dL Normal 83-110 [facility] Comment on above: Performed By: #### C DIFPCR #### [place] [address] #### STGIPCR #### [address] [address] Potassium [Moles/Vol] 4.3 mmol/L Normal 3.5-5.1 [facility] Comment on above: Performed By: #### C DIFPCR #### [address] [address] #### STGIPCR #### [address] [address] Sodium [Moles/Vol] 138 mmol/L Normal 136-145 [facility] Comment on above: Performed By: #### C DIFPCR #### [address] [address] #### STGIPCR #### [address] [address] Total Protein 6.9 G/dL Normal 6.4-8.2 [facility] Comment on above: Performed By: #### C DIFPCR #### [address] [address] #### STGIPCR #### [facility] [address] [place] [address] Urea nitrogen [Mass/Vol] 22 mg/dL High -18 [facility] Comment on above: Performed By: #### C DIFPCR #### [address] [address] #### STGIPCR #### [address] [address] LIPIDon 02-19-2025 Cholesterol [Mass/Vol] 170 mg/dL Normal 0-200 [facility] Comment on above: Result Comment: Chol esterol Reference Interval: Less than 200 Desirable 200-239 Borderline high risk 240 and above High risk Performed By: #### C DIFPCR #### [address] [address] #### STGIPCR #### [address] [address] Cholesterol in HDL [Mass/Vol] 72 mg/dL High 40-60 [facility] Comment on above: Performed By: #### C DIFPCR #### [address] [address] #### STGIPCR #### [address] [address] Cholesterol in LDL [Mass/Vol] 86 mg/dL Normal 0-130 [facility] Comment on above: Performed By: #### C DIFPCR #### [address] [address] #### STGIPCR #### [address] [address] Triglyceride [Mass/Vol] 61 mg/dL Normal 0-150 [facility] Comment on above: Result Comment: Trig lyceride Reference Interval: Less than 150 Normal 150-199 Borderline high risk 200-499 High risk 500 or higher Very high risk Performed By: #### C DIFPCR #### [place] [address] #### STGIPCR #### [address] [address] TSHon 02-19-2025 TSH Qn 1.63 m[IU]/L Normal 0.36-3.74 [facility] Comment on above: Performed By: #### C DIFPCR #### [address] [address] #### STGIPCR #### [address] [address] VIDHon 02-19-2025 Vit. D 25-Hydroxy 32.2 ng/mL Normal [facility] Comment on above: Result Comment: Inte rpretive Values Based on Total 25(OH) Vitamin D: Deficient <20 ng/mL Insufficient 20 - <30 ng/mL Sufficient 30-100 ng/mL Performed By: #### C DIFPCR #### [address] [address] #### STGIPCR #### [place] [id number] Cardiology Visit Reporton Cardiology Visit Report [facility] 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 Is patient in pain?: No Allergies No Known Allergies Allergy (Verified 09/21/24 09:30) Medications ???Medication ???Instructions ???Recorded ???Confirmed ???Type vit C 250 mg-vit E 90 mg-zinc 40 1 ea PO BID eye vitamin 05/07/18 0 12/23/24 History mg-copper 1 fo-jzmpjh-ayvtao capsule apixaban 5 mg tablet 5 mg [...] denosumab 60 mg/mL subcutaneous 60 mg subcut B5OSEIES Osteoporosis 05/02/23 09/21/24 History syringe (Prolia) metoprolol [...] (PF) 15 mg/0.1 mL 15 mg intravitreal [id number] Eyes 1 11/21/23 12/23/24 History intravitreal solution (Syfovre (PF)) Have you fallen in the past year?: No PFSH Medical History (Reviewed 12/23/24 @ 11:29 by Tai Krishna LABORATORY ANIMAL CARETAKER, LABORATORY ANIMAL CARETAKER-C) History of fall Wears hearing aid Wears [...] (Reviewed 12/23/24 @ 11:29 by Tai Krishna LABORATORY ANIMAL CARETAKER, LABORATORY ANIMAL CARETAKER-C) History of (more content not included)... Normal [facility] Urine Cultureon 11-20-2024 [facility] Escherichia coli [place] Count 80,000-100,000 Escherichia coli: REACTION Ampicillin Islt [...] TMP SMX Islt BENEDICT <=20 S Normal [facility] Comment on above: Performed By: #### M 100.636, M200.1000 #### [facility] [address] [place], [place], [id number] (153 Urinalysis, Routine (Dipstic k)on 11-18-2024 Clarity (U) Cloudy Normal Clear [facility] Comment on above: Order Comment: PT TO [place] URINARY TRACT HEALTH CRANBERRY AND MAX STRENGTH B4 PEEING (4)Urine, Random Performed By: #### M 100.636, M200.1000 #### [facility] [address] [place], [address] BILIRUBIN URINE 3 mg/dL Abnormal Negative [facility] Comment on above: Order Comment: PT TO [place] URINARY TRACT HEALTH [place] AND MAX STRENGTH B4 PEEING (4)Urine, Random Result Comment: COLO R OF URINE MAY AFFECT DIPSTICK RESULTS. Performed By: #### M 100.636, M200.1000 #### [facility] [address] [place], [address] Color (U) Red Normal Yellow [facility] Comment on above: Order Comment: PT TO [place] URINARY TRACT HEALTH [place] AND MAX STRENGTH B4 PEEING (4)Urine, Random Performed By: #### M 100.636, M200.1000 #### [facility] [address] [place], [address] GLUCOSE, UR Normal Normal Normal [facility] Comment on above: Order Comment: PT TO [place] URINARY TRACT HEALTH [place] AND MAX STRENGTH B4 PEEING (4)Urine, Random Performed By: #### M 100.636, M200.1000 #### [facility] [address] [place], [address] KETONE UR Negative Normal Negative [facility] Comment on above: Order Comment: PT TO [place] URINARY TRACT HEALTH [place] AND MAX STRENGTH B4 PEEING (4)Urine, Random Performed By: #### M 100.636, M200.1000 #### [facility] [address] [place], [address] LEUK ESTERASE Negative Normal Negative [facility] Comment on above: Order Comment: PT TO [place] URINARY TRACT HEALTH [place]AN[place] AND MAX STRENGTH B4 PEEING (4)Urine, Random Performed By: #### M 100.636, M200.1000 #### [facility] [address] [place], [address] Nitrite Ql (U) Negative Normal Negative [facility] Comment on above: Order Comment: PT TO [place] URINARY TRACT HEALTH [place] AND MAX STRENGTH B4 PEEING (4)Urine, Random Performed By: #### M 100.636, M200.1000 #### [facility] [address] [place], [address] OCCULT BLOOD-UR 10 /ul Abnormal Negative [facility] Comment on above: Order Comment: PT TO [place] URINARY TRACT HEALTH CRANB[place] AND MAX STRENGTH B4 PEEING (4)Urine, Random Performed By: #### M 100.636, M200.1000 #### [facility] [address] [place], [address] pH UR 5.0 Normal 5.0 - 8.0 [facility] Comment on above: Order Comment: PT TO [place] URINARY TRACT HEALTH [place]ANB[place] AND MAX STRENGTH B4 PEEING (4)Urine, Random Performed By: #### M 100.636, M200.1000 #### [facility] [address] [place], [address] PROT DIPSTX 30 mg/dl Abnormal Negative [facility] Comment on above: Order Comment: PT TO [place] URINARY TRACT HEALTH [place] AND MAX STRENGTH B4 PEEING (4)Urine, Random Performed By: #### M 100.636, M200.1000 #### [facility] [address] [place], [address] SP.GR. DIPSTX 1.025 Normal 1.002-1.03 0 [facility] Comment on above: Order Comment: PT TO [place] URINARY TRACT HEALTH [place]AN[place] AND MAX STRENGTH B4 PEEING (4)Urine, Random Performed By: #### M 100.636, M200.1000 #### [facility] [address] [place], [place], [id number] UROBILI Normal Normal Normal [facility] Comment on above: Order Comment: PT TO [place] URINARY TRACT HEALTH CRANBERRY AND MAX STRENGTH B4 PEEING (4)Urine, Random Performed By: #### M 100.636, M200.1000 #### [facility] [address] [place], [address] No Panel Informationon 10-07 Culture Urine No growth at 48 hours. [facility] .Auto Diffon 10-06-2024 Basophil, Absolute 0.0 10 3/mcL Normal 0.0-0.2 [facility] Comment on above: Performed By: #### C BC, PBNP, ADIFF, GFR, ANEU, CMP #### [address] [address] Basophils/100 WBC (Bld) 0.4 % Normal 0.0-2.5 [facility] Comment on above: Performed By: #### C BC, PBNP, ADIFF, GFR, ANEU, CMP #### [address] [address] Eosinophil, Absolute 0.1 10 3/mcL Normal 0.0-0.7 [facility] Comment on above: Performed By: #### C BC, PBNP, ADIFF, GFR, ANEU, CMP #### [address] [address] Eosinophils/100 WBC (Bld) 1.3 % Normal 0.0-7.0 [facility] Comment on above: Performed By: #### C BC, PBNP, ADIFF, GFR, ANEU, CMP #### [address] [address] Lymphocyte, Absolute 1.9 10 3/mcL Normal 0.9-4.3 [facility] Comment on above: Performed By: #### C BC, PBNP, ADIFF, GFR, ANEU, CMP #### [address] [address] Lymphocytes/100 WBC (Bld) 20.0 % Normal 20.0-40.0 [facility] Comment on above: Performed By: #### C BC, PBNP, ADIFF, GFR, ANEU, CMP #### [address] [address] Monocyte, Absolute 0.7 10 3/mcL Normal 0.1-1.4 [facility] Comment on above: Performed By: #### C BC, PBNP, ADIFF, GFR, ANEU, CMP #### [address] [address] Monocytes/100 WBC (Bld) 8.0 % Normal 2.0-13.0 [facility] Comment on above: Performed By: #### C BC, PBNP, ADIFF, GFR, ANEU, CMP #### [address] [address] Neutrophils/100 WBC (Bld) 70.3 % Normal 50.0-75.0 [facility] Comment on above: Performed By: #### C BC, PBNP, ADIFF, GFR, ANEU, CMP #### [address] [address] .GFRon 10-06-2024 GFR 74 ml/min/1.73sqm Normal [facility] Comment on above: Result Comment: GFR Population [...] BC, PBNP, ADIFF, GFR, ANEU, CMP #### [address] [address] GFR Non- 61 ml/min/1.73sqm Normal [facility] Comment on above: Result Comment: GFR Population [...] BC, PBNP, ADIFF, GFR, ANEU, CMP #### [address] [address] .NEUABSon 10-06-2024 Neutrophil, Absolute 6.6 10 3/mcL Normal 2.3-8.1 [facility] Comment on above: Performed By: #### C BC, PBNP, ADIFF, GFR, ANEU, CMP #### [address] [address] CBCon 10-06-2024 Erythrocyte distribution width (RBC) [Ratio] 13.3 % Normal 11.5-15.5 [facility] Comment on above: Performed By: #### C BC, PBNP, ADIFF, GFR, ANEU, CMP #### [place] [address] Hematocrit (Bld) [Volume fraction] 42.0 % Normal 34.0-46.0 [facility] Comment on above: Performed By: #### C BC, PBNP, ADIFF, GFR, ANEU, CMP #### [place] [address] Hgb 13.9 G/dL Normal 12.0-16.0 [facility] Comment on above: Performed By: #### C BC, PBNP, ADIFF, GFR, ANEU, CMP #### [address] [address] MCH (RBC) [Entitic mass] 32.1 pg Normal 27.0-33.0 [facility] Comment on above: Performed By: #### C BC, PBNP, ADIFF, GFR, ANEU, CMP #### [address] [address] MCHC 33.2 G/dL Normal 32.0-36.0 [facility] Comment on above: Performed By: #### C BC, PBNP, ADIFF, GFR, ANEU, CMP #### [address] [address] MCV (RBC) [Entitic vol] 96.7 fL Normal 80.0-99.0 [facility] Comment on above: Performed By: #### C BC, PBNP, ADIFF, GFR, ANEU, CMP #### [address] [address] Platelet 311 10 3/mcL Normal 150-450 [facility] Comment on above: Performed By: #### C BC, PBNP, ADIFF, GFR, ANEU, CMP #### [address] [address] Platelet mean volume (Bld) [Entitic vol] 9.4 fL Normal 6.6-10.5 [facility] Comment on above: Performed By: #### C BC, PBNP, ADIFF, GFR, ANEU, CMP #### [place] [address] RBC 4.35 10 6/mcL Normal 4.10-5.30 [facility] Comment on above: Performed By: #### C BC, PBNP, ADIFF, GFR, ANEU, CMP #### [place] [address] WBC 9.3 10 3/mcL Normal 4.5-10.8 [facility] Comment on above: Performed By: #### C BC, PBNP, ADIFF, GFR, ANEU, CMP #### [place] [address] CMPon 10-06-2024 Albumin Level 2.9 G/dL Low 3.4-4.8 [facility] Comment on above: Performed By: #### C BC, PBNP, ADIFF, GFR, ANEU, CMP #### [place] [address] Albumin/Globulin [Mass ratio] 0.8 {ratio} Low 1.1-2.5 [facility] Comment on above: Performed By: #### C BC, PBNP, ADIFF, GFR, ANEU, CMP #### [place] [address] ALP [Catalytic activity/Vol] 76 U/L Normal 40-135 [facility] Comment on above: Performed By: #### C BC, PBNP, ADIFF, GFR, ANEU, CMP #### [place] [address] ALT [Catalytic activity/Vol] 19 U/L Normal 14-59 [facility] Comment on above: Performed By: #### C BC, PBNP, ADIFF, GFR, ANEU, CMP #### [address] [address] AST [Catalytic activity/Vol] 16 U/L Normal 10-40 [facility] Comment on above: Performed By: #### C BC, PBNP, ADIFF, GFR, ANEU, CMP #### [address] [address] Bili Total 0.5 mg/dL Normal 0.2-1.0 [facility] Comment on above: Result Comment: Use of this assay is not recommended for patients undergoing treatment with eltrombopag due to the potential for falsely elevated results. Performed By: #### C BC, PBNP, ADIFF, GFR, ANEU, CMP #### [address] [address] BUN/Creatinine Ratio 25 ratio Normal 7-27 [facility] Comment on above: Performed By: #### C BC, PBNP, ADIFF, GFR, ANEU, CMP #### [address] [address] Calcium [Mass/Vol] 9.7 mg/dL Normal 8.4-10.2 [facility] Comment on above: Performed By: #### C BC, PBNP, ADIFF, GFR, ANEU, CMP #### [address] [address] Chloride [Moles/Vol] 100 mmol/L Normal 98-107 [facility] Comment on above: Performed By: #### C BC, PBNP, ADIFF, GFR, ANEU, CMP #### [address] [address] CO2 [Moles/Vol] 32 mmol/L High 23-31 [facility] Comment on above: Performed By: #### C BC, PBNP, ADIFF, GFR, ANEU, CMP #### [address] [address] Creatinine [Mass/Vol] 0.88 mg/dL Normal 0.55-1.02 [facility] Comment on above: Result Comment: Test ing performed on [employer] Dimension EXL analyzer using a modified kinetic Cecilio technique. Performed By: #### C BC, PBNP, ADIFF, GFR, ANEU, CMP #### [address] [address] Electrolyte Balance 5.0 mEq/L Normal 4.0-15.0 [facility] Comment on above: Performed By: #### C BC, PBNP, ADIFF, GFR, ANEU, CMP #### [address] [address] Globulin 3.8 G/dL Normal [facility] Comment on above: Performed By: #### C BC, PBNP, ADIFF, GFR, ANEU, CMP #### [address] [address] Glucose [Mass/Vol] 88 mg/dL Normal 83-110 [facility] Comment on above: Performed By: #### C BC, PBNP, ADIFF, GFR, ANEU, CMP #### [address] [address] Potassium [Moles/Vol] 4.7 mmol/L Normal 3.5-5.1 [facility] Comment on above: Performed By: #### C BC, PBNP, ADIFF, GFR, ANEU, CMP #### [address] [address] Sodium [Moles/Vol] 137 mmol/L Normal 136-145 [facility] Comment on above: Performed By: #### C BC, PBNP, ADIFF, GFR, ANEU, CMP #### [address] [address] Total Protein 6.7 G/dL Normal 6.4-8.2 [facility] Comment on above: Performed By: #### C BC, PBNP, ADIFF, GFR, ANEU, CMP #### [address] [address] Urea nitrogen [Mass/Vol] 22 mg/dL High 7-18 [facility] Comment on above: Performed By: #### C BC, PBNP, ADIFF, GFR, ANEU, CMP #### [place] [id number] [place], [place] [address] LABORATORYOrdered By: SYSTEM SYSTEM on 10-06-2024 Albumin [...] B (Bld) [Mass/Vol] 2431 pg/mL High 0-450 [facility] Comment on above: Result Comment: NT-p roBNP results of less than 300 pg/mL effectively rules out acute congestive heart failure with 99% negative predictive value. Performed By: #### C BC, PBNP, ADIFF, GFR, ANEU, CMP #### [facility] [address] [place], [place] [address] BASIC METABOLIC PANELon 11-2 Anion gap [Moles/Vol] 5 mmol/L Normal 3-13 [facility] Comment on above: Performed By: #### L [id number], [id number] #### Bag Filler: ESEQUIEL IRENE ([id number]) [facility] ([facility]) [address] [place] [address] Calcium [Mass/Vol] 8.4 mg/dL Normal 8.4-10.4 [facility] Comment on above: Performed By: #### L [id number], [id number] #### Bag Filler: ESEQUIEL IRENE ([id number]) [facility] ([facility]) [address] [place] [address] [place] Chloride [Moles/Vol] 104 mmol/L Normal 98-107 [facility] Comment on above: Performed By: #### L [id number], [id number] #### Bag Filler: ESEQUIEL IRENE ([id number]) [facility] ([facility]) [address] [place] [address] [place] CO2 [Moles/Vol] 28 mmol/L Normal 22-30 [facility] Comment on above: Performed By: #### L [id number], [id number] #### Bag Filler: ESEQUIEL IRENE ([id number]) [facility] ([facility]) [address] [place] [address] [place] Creatinine [Mass/Vol] 0.73 mg/dL Normal 0.52-1.04 [facility] Comment on above: Performed By: #### L [id number], [id number] #### Bag Filler: ESEQUIEL IRENE ([id number]) [facility] ([facility]) [address] [place] [address] GLOMERULAR FILTRATION RATE ML/MIN/1.73 SQ M.PREDICTED 81.2 mL/min/1.73m*2 Normal >60.0 [facility] Comment on above: Result Comment: Calc ulation based on the Chronic Kidney Disease Epidemiology Collaboration (CKD-EPI) equation refit without adjustment for race Performed By: #### L [id number], [id number] #### Bag Filler: ESEQUIEL IRENE ([id number]) [facility] ([facility]) [address] [place] [address] Glucose [Mass/Vol] 113 mg/dL High 70-100 [facility] Comment on above: Performed By: #### L [id number], [id number] #### Bag Filler: ESEQUIEL IRENE ([id number]) [facility] ([facility]) [address] [place] [address] Potassium [Moles/Vol] 4.3 mmol/L Normal 3.5-5.1 [facility] Comment on above: Performed By: #### L [id number], [id number] #### Bag Filler: ESEQUIEL IRENE ([id number]) [facility] ([facility]) [address] [place] [address] Sodium [Moles/Vol] 136 mmol/L Normal 135-145 [facility] Comment on above: Performed By: #### L [id number], [id number] #### Bag Filler: ESEQUIEL IRENE ([id number]) [facility] ([facility]) [address] [place] [address] Urea nitrogen [Mass/Vol] 16 mg/dL Normal 7-17 [facility] Comment on above: Performed By: #### L [id number], LAB15 #### Bag Filler: ESEQUIEL IRENE ([id number]) [facility] ([facility]) [address] [place] [address] Basic metabolic 1998 panelon 09-30-2024 Anion gap [Moles/Vol] 5 mmol/L 3 - 13 mmol/L [facility] Calcium [Mass/Vol] 8.4 mg/dL 8.4 - 10. 4 mg/dL [facility] Chloride [Moles/Vol] 104 mmol/L 98 - 10 7 mmol/L [facility] CO2 [Moles/Vol] 28 mmol/L 22 - 30 mmol/L [facility] Creatinine [Mass/Vol] 0.73 mg/dL 0.52 - 1.04 mg/dL [facility] GFR/1.73 sq M.predicted (S/P/Bld) [Vol rate/Area] 81.2 mL/min - PINF [facility] Comment on above: Calculation based on the Chronic Kidney Disease Epidemiology Collaboration (CKD-EPI) equation refit without adjustment for race Glucose [Mass/Vol] 113 mg/dL High 70 - 100 mg/dL [facility] Interpretation and review of laboratory results Abnormal [facility] Potassium [Moles/Vol] 4.3 mmol/L 3.5 - 5.1 mmol/L [facility] Sodium [Moles/Vol] 136 mmol/L 135 - 145 mmol/L [facility] Urea nitrogen [Mass/Vol] 16 mg/dL 7 - 17 mg/dL [facility] CBC W Auto Differential pane l (Bld)on 09-30-2024 Basophils (Bld) [#/Vol] 0 10*3/uL 0.0 - 0.2 10*3/uL [facility] Basophils/100 WBC (Bld) 0.3 % 0.0 - 2.0 % [facility] Eosinophils (Bld) [#/Vol] 0.1 10*3/uL 0.0 - 0.5 10*3/uL [facility] Eosinophils/100 WBC (Bld) 0.6 % 0.0 - 6.0 % [facility] Erythrocyte distribution width (RBC) [Ratio] 12.6 % 11.5 - 15.0 % [facility] Hematocrit (Bld) [Volume fraction] 41.3 % 35.0 - 47.0 % [facility] Hemoglobin (Bld) [Mass/Vol] 13.2 g/dL 11.7 - 16.0 g/dL [facility] Immature granulocytes (Bld) [#/Vol] 0 10*3/uL NINF - 0.1 10*3/uL [facility] Immature granulocytes/100 WBC (Bld) 0.4 % 0.0 - 2.0 % [facility] Interpretation and review of laboratory results Abnormal [facility] [employer] Lymphocytes (Bld) [#/Vol] 1.1 10*3/uL 1.0 - 4.3 10*3/uL [facility] Lymphocytes/100 WBC (Bld) 10.8 % Low 15.0 - 45.0 % [facility] MCH (RBC) [Entitic mass] 31.5 pg 26.0 - 34.0 pg [facility] MCHC (RBC) [Mass/Vol] 32 % 30.5 - 36.0 % [facility] MCV (RBC) [Entitic vol] 98.6 fL 77.0 - 99.0 fL [facility] Monocytes (Bld) [#/Vol] 0.9 10*3/uL 0.0 - 0.9 10*3/uL [facility] Monocytes/100 WBC (Bld) 9.2 % 5.0 - 13.0 % [facility] Neutrophils (Bld) [#/Vol] 8 10*3/uL High 1.8 - 7.5 10*3/uL [facility] Neutrophils/100 WBC (Bld) 78.7 % 38.0 - 82.0 % [facility] Nucleated RBC/100 WBC (Bld) [Ratio] 0 % [facility] [employer] Platelet mean volume (Bld) [Entitic vol] 11.3 fL 9.0 - 12.7 fL [facility] Platelets (Bld) [#/Vol] 239 10*3/uL 140 - 440 10*3/uL [facility] RBC (Bld) [#/Vol] 4.19 10*6/uL 3.80 - 5.20 10*6/uL [facility] WBC (Bld) [#/Vol] 10.2 10*3/uL 3.6 - 10.7 10*3/uL [facility] CBC WITH AUTO DIFFERENTIALon 09-30-2024 Basophils (Bld) [#/Vol] 0.0 10*3/uL Normal 0.0-0.2 [facility] Comment on above: Performed By: #### L [id number] #### Bag Filler: ESEQUIEL IRENE ([id number]) [facility] ([facility]) [address] [place] [address] Basophils/100 WBC (Bld) 0.3 % Normal 0.0-2.0 [facility] Comment on above: Performed By: #### L [id number] #### Bag Filler: ESEQUIEL IRENE ([id number]) [facility]) [address] [place] [address] Eosinophils (Bld) [#/Vol] 0.1 10*3/uL Normal 0.0-0.5 [facility] Comment on above: Performed By: #### L [id number] #### Bag Filler: ESEQUIEL IRENE ([id number]) [facility] ([facility]) [address] [place] [address] Eosinophils/100 WBC (Bld) 0.6 % Normal 0.0-6.[address] [facility] Comment on above: Performed By: #### L [id number] #### Bag Filler: ESEQUIEL IRENE ([id number]) [facility]) [address] [place] [address] Erythrocyte distribution width (RBC) [Ratio] 12.6 % Normal 11.5-15.[address] [facility] Comment on above: Performed By: #### L [id number] #### Bag Filler: ESEQUIEL IRENE ([id number]) [facility]) [address] [place] [address] Hematocrit (Bld) [Volume fraction] 41.3 % Normal 35.0-47.0 [facility] Comment on above: Performed By: #### L [id number] #### Bag Filler: ESEQUIEL IRENE ([id number]) [facility]) [address] [place] [address] Hemoglobin (Bld) [Mass/Vol] 13.2 g/dL Normal 11.7-16.[address] [facility] Comment on above: Performed By: #### L [id number] #### Bag Filler: ESEQUIEL IRENE ([id number]) [facility] ([facility]) [address] [place] [address] IMMATURE GRANS % 0.4 % Normal 0.0-2.0 [facility] Comment on above: Performed By: #### L [id number] #### Bag Filler: ESEQUIEL IRENE ([id number]) [facility]) [address] [place] [address] IMMATURE GRANS ABSOLUTE 0.0 10*3/uL Normal <0.[address] [facility] Comment on above: Performed By: #### L [id number] #### Bag Filler: ESEQUIEL IRENE ([id number]) [facility]) [address] [place] [address] Lymphocytes (Bld) [#/Vol] 1.1 10*3/uL Normal 1.0-4.[address] [facility] Comment on above: Performed By: #### L [id number] #### Bag Filler: ESEQUIEL IRENE ([id number]) [address] Lymphocytes/100 WBC (Bld) 10.8 % Low 15.0-45.[address] [facility] Comment on above: Performed By: #### L [id number] #### Bag Filler: ESEQUIEL IRENE ([id number]) [facility]) [address] [place] [address] MCH (RBC) [Entitic mass] 31.5 pg Normal 26.0-34.[address] [facility] Comment on above: Performed By: #### L [id number] #### Bag Filler: ESEQUIEL IRENE ([id number]) [address] MCHC 32.0 % Normal 30.5-36.[address] [facility] Comment on above: Performed By: #### L [id number] #### Bag Filler: ESEQUIEL IRENE ([id number]) [address] MCV (RBC) [Entitic vol] 98.6 fL Normal 77.0-99.0 [facility] Comment on above: Performed By: #### L [id number] #### Bag Filler: ESEQUIEL IRENE ([id number]) [facility] ([facility]) [address] [place] [address] Monocytes (Bld) [#/Vol] 0.9 10*3/uL Normal 0.0-0.[address] [facility] Comment on above: Performed By: #### L [id number] #### Bag Filler: ESEQUIEL IRENE ([id number]) [facility]) [address] [place] [address] Monocytes/100 WBC (Bld) 9.2 % Normal 5.0-13.0 [facility] Comment on above: Performed By: #### L [id number] #### Bag Filler: ESEQUIEL IRENE ([id number]) [facility]) [address] [place] [address] NEUTROPHILS ABSOLUTE 8.0 10*3/uL High 1.8-7.5 [facility] Comment on above: Performed By: #### L [id number] #### Bag Filler: ESEQUIEL IRENE ([id number]) [facility] ([facility]) [address] [place] [address] Neutrophils/100 WBC (Bld) 78.7 % Normal 38.0-82.[address] [facility] Comment on above: Performed By: #### L [id number] #### Bag Filler: ESEQUIEL IRENE ([id number]) [facility] ([facility]) [address] [place] [address] NRBC 0.0 /100 WBCs Normal 0.0-2.0 [facility] Comment on above: Performed By: #### L [id number] #### Bag Filler: ESEQUIEL IRENE ([id number]) [facility] ([facility] [address] [place] [address] Platelet mean volume (Bld) [Entitic vol] 11.3 fL Normal 9.0-12.[address] [facility] Comment on above: Performed By: #### L [id number] #### Bag Filler: ESEQUIEL IRENE ([id number]) [facility] ([facility] [address] [place] [address] [place] Platelets (Bld) [#/Vol] 239 10*3/uL Normal 140-440 [facility] Comment on above: Performed By: #### L [id number] #### Bag Filler: ESEQUIEL IRENE ([id number]) [facility] ([facility] [address] [place] [address] RBC (Bld) [#/Vol] 4.19 10*6/uL Normal 3.80-5.20 [facility] Comment on above: Performed By: #### L [id number] #### Bag Filler: ESEQUIEL IRENE ([id number]) [facility] ([facility] [address] [place] [address] WBC (Bld) [#/Vol] 10.2 10*3/uL Normal 3.6-10.7 [facility] Comment on above: Performed By: #### L [id number] #### Bag Filler: ESEQUIEL IRENE ([id number]) [facility] ([facility]) [address] [place] [address] CT CERVICAL SPINE WO IV CONT [facility] 09-30-2024 CT CERVICAL SPINE WO IV CONTRAST [...] moderate left neuroforaminal narrowing C3-C4. There is osvx-ls-dawpwrug left and moderate right carotid artery atherosclerotic [...] MD Electronically Signed Date/Time: 09/30/2024 2:08 PM [facility] [address] Cervical spine WO contras ton 09-30-2024 Impression: 1. Mild spondylolisthesis C3-C4 and C4-C5. 2. Moderate cervical spondylosis as above. Moderate left neuroforaminal narrowing C3-C4. 3. Atherosclerosis proximal cervical internal carotid arteries moderate in severity on the right. Report Dictated on Electronically Signed By: Xander Sterling MD Electronically Signed Date/Time: 09/30/2024 2:08 PM [facility] 1940 [id number] Exam Date/Time: 09/30/2024 13:39 Procedure: CT CERVICAL [...] moderate left neuroforaminal narrowing C3-C4. There is tslu-ab-fnizwkfp left and moderate right carotid artery atherosclerotic calcification near the proximal internal carotid arteries. Screening examination of the lung apices demonstrates no apical pneumothorax. There is some pleural thickening in the lung apices. [facility] RADI[facility] SYSTEM Xander Sterling MD - 09/30/2024 Patient Name: [facility]GRO[facility] 1940 [id number] Exam Date/Time: 09/30/2024 13:39 Procedure: CT CERVICAL [...] moderate left neuroforaminal narrowing C3-C4. There is ttnv-qt-qmgiogaq left and moderate right carotid artery atherosclerotic [...] MD Electronically Signed Date/Time: 09/30/2024 2:08 PM [facility] [place] CT HEAD WO IV CONTRASTon CT HEAD WO IV CONTRAST Patient Name: [facility]RY LAWSON : 1940 [id number] Exam Date/Time: 09/30/2024 13:39 Procedure: CT HEAD [...] Signed Date/Time: 09/30/2024 2:03 PM EST Normal [facility] CT Head WO contraston 2023 Impression: 1. [...] Electronically Signed Date/Time: 09/30/2024 2:03 PM EST [facility] [employer] SYSTEM Patient Name: HENRY DEGROOT : 1940 [id number] Exam Date/Time: 09/30/2024 13:39 Procedure: CT HEAD [...] a small right-sided parietal scalp contusion, hematoma. [facility] Xander Sterling MD - 09/30/2024 Patient Name: HENRY DEGROOT : 1940 [id number] Exam Date/Time: 09/30/2024 13:39 Procedure: CT HEAD [...] Electronically Signed Date/Time: 09/30/2024 2:03 PM EST [facility] CT Head WO contrastOrdered B y: Xander Sterling on 09-30-2024 [employer] Work Phone: ECG 12-LEADon 09-30-2024 ECG 12-LEAD IMPRESSION: Sinus rhythm Normal [place] Low voltage, precordial leads Electronically Signed On 09-30-2024 15:23:50 EST by Toi Miller [facility] ED Provider Noteon ED Provider Note I did not participat e in the care of this patient Linus Fuchs MD 10/02/24 0043 [facility] ED Provider Note Emergency Department [...] for clarification.) Toi Miller MD Acute Care [facility] Toi Miller MD 09/30/24 1524 [facility] ED Provider Note EMERGENCY DEPARTMENT [...] cervical internal (more content not included)... Normal [facility] Laboratory - Chemistry and C hemistry - challengeon 09-30-2024 Troponin I.cardiac [Mass/Vol] ng/mL NINF - 0.034 ng/mL [facility] No Panel Informationon 09-30 P [place] 54 degrees [facility] VA Interval 184 ms [facility] QRS [place] 18 degrees [facility] QRSD Interval 78 ms [facility] QT Interval 382 ms [facility] QTC Interval 441 ms [facility] T Wave [place] 9 degrees [facility] Sinus rhythm Normal [place] Low voltage, precordial leads Electronically Signed On 09-30-2024 15:23:50 EST by Toi Albrecht MD - 09/30/2024 IMPRESSION: Sinus rhythm Normal [place] Low voltage, precordial leads Electronically Signed On 09-30-2024 15:23:50 EST by Toi Miller [facility] Radiology Study observation (narrative) [facility] alth TROPONIN, WITH SERIAL REFLEX on 09-30-2024 Troponin I.cardiac [Mass/Vol] ng/mL Normal <0.034 [facility] Comment on above: Result Comment: ORDE R COMMENTS: Patients with high levels of Biotin oral intake (ie >5 mg/day) may have falsely decreased Troponin levels. Performed By: #### L [id number], [id number] #### Bag Filler: ESEQUIEL IRENE ([id number]) [facility] ([facility]) [address] [place] [address] Troponin I.cardiac [Mass/Vol ]on 09-30-2024 Interpretation and review of laboratory results Normal [facility] Patients with high levels of Biotin oral intake (ie >5 mg/day) may have falsely decreased Troponin levels. [facility] Vital signson 09-30-2024 Heart rate 80 /min bpm [facility] XR Hand - right 2 [place] No acute fracture or dislocation of the right hand. Moderate degenerative changes involving the CMC joint and PIP joints. Report Dictated on Electronically Signed By: Raquel Clark MD Electronically Signed Date/Time: 09/30/2024 2:09 PM EST [facility] Patient Name: HENRY DEGROOT : 1940 [...] mildly osteopenic. The soft tissues are unremarkable. [facility] Albina Clark MD - 09/30/2024 Patient Name: [...] Electronically Signed Date/Time: 09/30/2024 2:09 PM EST [facility] Radiology Study observation (narrative) [facility] alth XR Hand - right 2 ViewsOrder ed By: Albina Clark on 09-30-2024 [facility] [employer] Work Phone: XR Pelvis 1 or 2 [place] Impression: No evidence of fracture or subluxation of the pelvis. Report Dictated on Electronically Signed By: Xander Sterling MD Electronically Signed Date/Time: 09/30/2024 2:10 PM [facility] [employer] SYSTEM Patient Name: HENRY DEGROOT : 1940 [...] slightly larger on the left. There is xqai-jp-trtbhifj lower lumbar spondylosis. [facility] SYSTEM Xander Sterling MD - 09/30/2024 Patient [...] slightly larger on the left. There is nqzl-ja-ldlutbva lower lumbar spondylosis. IMPRESSION: Impression: No evidence of fracture or subluxation of the pelvis. Report Dictated on Electronically Signed By: Xander Sterling MD Electronically Signed Date/Time: 09/30/2024 2:10 PM [facility] [employer] [facility] Radiology Study observation (narrative) [facility] Cardiology Visit Reporton Cardiology Visit Report [facility] [address] [place] [address]. 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 Accompanied by: Daughter Is patient in pain?: No Allergies No Known Allergies Allergy (Verified 09/21/24 09:30) Medications ???Medication ???Instructions ???Recorded ???Confirmed ???Type vit C 250 mg-vit E 90 mg-zinc 40 1 ea PO BID eye vitamin 05/07/18 09/21/24 History mg-copper 1 ey-mfwoga-ynpqmr capsule apixaban 5 mg tablet 5 mg [...] denosumab 60 mg/mL subcutaneous 60 mg subcut [id number] Osteoporosis 05/02/23 09/21/24 History syringe (Prolia) metoprolol [...] (PF) 15 mg/0.1 mL 15 mg intravitreal [id number] Eyes 09/21/24 09/21/24 History intravitreal solution (Syfovre (PF)) Ejection fraction %: 55 (55-60) Have you fallen in the past year?: Yes (July 05, passed out and fell) [facility] Medical History (Updated 09/21/24 @ 09:55 by Tai Krishna LABORATORY ANIMAL CARETAKER, LABORATORY ANIMAL CARETAKER-C) History of fall Wears hearing aid Wears [...] right breast (more content not included)... Normal [facility] MA MAMMOGRAM SCREENING LEFT W/Mehrdad 03-17-2024 MA MAMMOGRAM SCREENING LEFT W/RICHARD [facility] [address], [place] [address] PROCEDURE FOR: HENRY DEGROOT [address] [place] [address] Home: PID#: [id number] Exam#: [id number] : 1940 Age: 83 TO: ИВАН LOPEZ DO [address] [address] Fax: NO FAX EXAMINATION: SCREENING DIGITAL LEFT [...] 03/17/2024 5:47:44 PM Ordering Provider: ИВАН LOPEZ Commissions Specialist: JUAN CARLOS SPRAGUE (Urszula)(M) letter sent: Normal BI-RADS 1 and 2 Mammogram BI-RADS: 2 Benign Normal [facility] ([place]) LABORATORYOrdered By: Chichi Parra on 03-04-2024 Albumin DL <= 20 mg/L (U) [Mass/Vol] 263 mcg/dL Invalid Interpretation Code AO ADM SS Albumin/Creatinine DL <= 20 mg/L (U) [Mass ratio] 2 mcg/mg Normal 0 - 30 mcg/mg AO ADM SS Creatinine (U) [Mass/Vol] 106.0 mg/dL Normal 28.0 - 117.0 mg/dL AO ADM SS MALBRon 03-04-2024 U Creatinine 106.0 mg/dL Normal 28.0-117.0 [facility] ([place] Comment on above: Performed By: #### M ALBR #### [address] [address] U Microalb 263 mcg/dL Normal [facility] ([place] Comment on above: Performed By: #### M ALBR #### [address] [address] U Ratio Alb/Cre 2 mcg/mg Normal 0-30 [facility] ([place] Comment on above: Performed By: #### M ALBR #### [address] [address] .Auto Diffon 02-04-2024 Basophil, Absolute 0.0 10 3/mcL Normal 0.0-0.2 [facility] ([place]) Comment on above: Performed By: #### V IDH, LIPID, GFR, CMP, CBC, ANEU, TSH, ADIFF #### [address] [address] Basophils/100 WBC (Bld) 0.5 % Normal 0.0-2.5 A [facility] ([place]) Comment on above: Performed By: #### V IDH, LIPID, GFR, CMP, CBC, ANEU, TSH, ADIFF #### [address] [address] Eosinophil, Absolute 0.1 10 3/mcL Normal 0.0-0.4 [facility] ([place]) Comment on above: Performed By: #### V IDH, LIPID, GFR, CMP, CBC, ANEU, TSH, ADIFF #### [address] [address] Eosinophils/100 WBC (Bld) 2.0 % Normal 0.0-7.0 [facility] ([place]) Comment on above: Performed By: #### V IDH, LIPID, GFR, CMP, CBC, ANEU, TSH, ADIFF #### [address] [address] Lymphocyte, Absolute 1.9 10 3/mcL Normal 0.8-3.9 [facility] ([place] Comment on above: Performed By: #### V IDH, LIPID, GFR, CMP, CBC, ANEU, TSH, ADIFF #### [address] [address] Lymphocytes/100 WBC (Bld) 25.7 % Normal 10.0-50.0 [facility] ([place]) Comment on above: Performed By: #### V IDH, LIPID, GFR, CMP, CBC, ANEU, TSH, ADIFF #### [address] [address] Monocyte, Absolute 0.7 10 3/mcL Normal 0.2-1.0 [facility] ([place] Comment on above: Performed By: #### V IDH, LIPID, GFR, CMP, CBC, ANEU, TSH, ADIFF #### [address] [address] Monocytes/100 WBC (Bld) 9.5 % Normal 1.7-13.0 A [facility] ([place] Comment on above: Performed By: #### V IDH, LIPID, GFR, CMP, CBC, ANEU, TSH, ADIFF #### [address] [address] Neutrophils/100 WBC (Bld) 62.3 % Normal 37.0-80.0 [facility] ([place]) Comment on above: Performed By: #### V IDH, LIPID, GFR, CMP, CBC, ANEU, TSH, ADIFF #### [address] [address] .GFRon 02-04-2024 GFR 80 ml/min/1.73sqm Normal [facility] ([place]) Comment on above: Result Comment: GFR Population [...] GFR, CMP, CBC, ANEU, TSH, ADIFF #### [address] [address] GFR Non- 66 ml/min/1.73sqm Normal [facility] ([place] Comment on above: Result Comment: GFR Population [...] GFR, CMP, CBC, ANEU, TSH, ADIFF #### [address] [address] .NEUABSon 02-04-2024 Neutrophil, Absolute 4.6 10 3/mcL Normal 2.9-6.2 [facility] ([place] Comment on above: Performed By: #### V IDH, LIPID, GFR, CMP, CBC, ANEU, TSH, ADIFF #### [address] [address] CBCon 02-04-2024 Erythrocyte distribution width (RBC) [Ratio] 12.8 % Normal 11.5-14.5 [facility] ([place] Comment on above: Performed By: #### V IDH, LIPID, GFR, CMP, CBC, ANEU, TSH, ADIFF #### [address] [address] Hematocrit (Bld) [Volume fraction] 41.2 % Normal 37.0-47.0 [facility] ([place] Comment on above: Performed By: #### V IDH, LIPID, GFR, CMP, CBC, ANEU, TSH, ADIFF #### [address] [address] Hgb 14.2 G/dL Normal 12.0-16.0 [facility] ([place] Comment on above: Performed By: #### V IDH, LIPID, GFR, CMP, CBC, ANEU, TSH, ADIFF #### [address] [address] MCH (RBC) [Entitic mass] 32.9 pg High 27.0-31.2 [facility] ([place]) Comment on above: Performed By: #### V IDH, LIPID, GFR, CMP, CBC, ANEU, TSH, ADIFF #### [address] [address] MCHC 34.4 G/dL Normal 33.0-37.0 [facility] ([place] Comment on above: Performed By: #### V IDH, LIPID, GFR, CMP, CBC, ANEU, TSH, ADIFF #### [address] [address] MCV (RBC) [Entitic vol] 95.6 fL High 80.0-94.0 [facility] ([place] Comment on above: Performed By: #### V IDH, LIPID, GFR, CMP, CBC, ANEU, TSH, ADIFF #### [address] [address] Platelet 289 10 3/mcL Normal 130-400 [facility] ([place]) Comment on above: Performed By: #### V IDH, LIPID, GFR, CMP, CBC, ANEU, TSH, ADIFF #### [address] [address] Platelet mean volume (Bld) [Entitic vol] 9.0 fL Normal 7.4-10.4 [facility] ([place] Comment on above: Performed By: #### V IDH, LIPID, GFR, CMP, CBC, ANEU, TSH, ADIFF #### [address] [address] RBC 4.31 10 6/mcL Normal 4.20-5.40 [facility] ([place] Comment on above: Performed By: #### V IDH, LIPID, GFR, CMP, CBC, ANEU, TSH, ADIFF #### [address] [address] WBC 7.4 10 3/mcL Normal 4.6-10.8 [facility] ([place] Comment on above: Performed By: #### V IDH, LIPID, GFR, CMP, CBC, ANEU, TSH, ADIFF #### [address] [address] CMPon 02-04-2024 Albumin Level 3.0 G/dL Low 3.4-4.8 [facility]) Comment on above: Performed By: #### V IDH, LIPID, GFR, CMP, CBC, ANEU, TSH, ADIFF #### [address] [address] Albumin/Globulin [Mass ratio] 0.8 {ratio} Low 1.1-2.5 [facility] ([place] Comment on above: Performed By: #### V IDH, LIPID, GFR, CMP, CBC, ANEU, TSH, ADIFF #### [address] [address] ALP [Catalytic activity/Vol] 64 U/L Normal 40-135 [facility] ([place] Comment on above: Performed By: #### V IDH, LIPID, GFR, CMP, CBC, ANEU, TSH, ADIFF #### [address] [address] ALT [Catalytic activity/Vol] 22 U/L Normal 14-59 [facility] ([place] Comment on above: Performed By: #### V IDH, LIPID, GFR, CMP, CBC, ANEU, TSH, ADIFF #### [address] [address] AST [Catalytic activity/Vol] 20 U/L Normal 10-40 [facility] ([place] Comment on above: Performed By: #### V IDH, LIPID, GFR, CMP, CBC, ANEU, TSH, ADIFF #### [address] [address] Bili Total 0.5 mg/dL Normal 0.2-1.0 [facility] ([place] Comment on above: Result Comment: Use of this assay is not recommended for patients undergoing treatment with eltrombopag due to the potential for falsely elevated results. Performed By: #### V IDH, LIPID, GFR, CMP, CBC, ANEU, TSH, ADIFF #### [address] [address] BUN/Creatinine Ratio 25 ratio Normal 7-27 [facility] ([place] Comment on above: Performed By: #### V IDH, LIPID, GFR, CMP, CBC, ANEU, TSH, ADIFF #### [address] [address] Calcium [Mass/Vol] 9.2 mg/dL Normal 8.4-10.2 Pending sale to [facility] ([place]) Comment on above: Performed By: #### V IDH, LIPID, GFR, CMP, CBC, ANEU, TSH, ADIFF #### [address] [address] Chloride [Moles/Vol] 104 mmol/L Normal 98-107 [facility] ([place] Comment on above: Performed By: #### V IDH, LIPID, GFR, CMP, CBC, ANEU, TSH, ADIFF #### [address] [address] CO2 [Moles/Vol] 30 mmol/L Normal 23-31 [facility] ([place] Comment on above: Performed By: #### V IDH, LIPID, GFR, CMP, CBC, ANEU, TSH, ADIFF #### [address] [address] Creatinine [Mass/Vol] 0.83 mg/dL Normal 0.55-1.02 [facility] ([place]) Comment on above: Performed By: #### V IDH, LIPID, GFR, CMP, CBC, ANEU, TSH, ADIFF #### [address] [address] Electrolyte Balance 5.0 mEq/L Normal 4.0-15.0 [facility] ([place]) Comment on above: Performed By: #### V IDH, LIPID, GFR, CMP, CBC, ANEU, TSH, ADIFF #### [address] [address] Globulin 3.8 G/dL Normal [facility] ([place] Comment on above: Performed By: #### V IDH, LIPID, GFR, CMP, CBC, ANEU, TSH, ADIFF #### [address] [address] Glucose [Mass/Vol] 96 mg/dL Normal 83-110 [facility] ([place] Comment on above: Performed By: #### V IDH, LIPID, GFR, CMP, CBC, ANEU, TSH, ADIFF #### [address] [address] Potassium [Moles/Vol] 4.7 mmol/L Normal 3.5-5.1 [facility] ([place] Comment on above: Performed By: #### V IDH, LIPID, GFR, CMP, CBC, ANEU, TSH, ADIFF #### [address] [address] Sodium [Moles/Vol] 139 mmol/L Normal 136-145 P[facility] ([place] Comment on above: Performed By: #### V IDH, LIPID, GFR, CMP, CBC, ANEU, TSH, ADIFF #### [address] [address] Total Protein 6.8 G/dL Normal 6.4-8.2 [facility] ([place]) Comment on above: Performed By: #### V IDH, LIPID, GFR, CMP, CBC, ANEU, TSH, ADIFF #### [address] [address] Urea nitrogen [Mass/Vol] 21 mg/dL High 7-18 [facility] ([place] Comment on above: Performed By: #### V IDH, LIPID, GFR, CMP, CBC, ANEU, TSH, ADIFF #### [address] [address] LABORATORYOrdered By: SYSTEM SYSTEM on 02-04-2024 25-hydroxyvitamin [...] 02-04-2024 Cholesterol [Mass/Vol] 207 mg/dL High 0-200 [facility] ([place]) Comment on above: Result Comment: Chol esterol Reference Interval: Less than 200 Desirable 200-239 Borderline high risk 240 and above High risk Performed By: #### V IDH, LIPID, GFR, CMP, CBC, ANEU, TSH, ADIFF #### [address] [address] Cholesterol in HDL [Mass/Vol] 82 mg/dL High 40-60 [facility] ([place]) Comment on above: Performed By: #### V IDH, LIPID, GFR, CMP, CBC, ANEU, TSH, ADIFF #### [address] [place], [place] [address] Cholesterol in LDL [Mass/Vol] 113 mg/dL Normal 0-130 [facility] ([place]) Comment on above: Performed By: #### V IDH, LIPID, GFR, CMP, CBC, ANEU, TSH, ADIFF #### [address] [place], [place] [address] Triglyceride [Mass/Vol] 62 mg/dL Normal 0-150 A [facility] ([place]) Comment on above: Result Comment: Trig lyceride Reference Interval: Less than 150 Normal 150-199 Borderline high risk 200-499 High risk 500 or higher Very high risk Performed By: #### V IDH, LIPID, GFR, CMP, CBC, ANEU, TSH, ADIFF #### [place] [address] [address] TSHon 02-04-2024 TSH Qn 1.85 m[IU]/L Normal 0.36-3.74 [facility] ([place] Comment on above: Performed By: #### V IDH, LIPID, GFR, CMP, CBC, ANEU, TSH, ADIFF #### [address] [address] VIDHon 02-04-2024 Vit. D 25-Hydroxy 30.7 ng/mL Normal [facility] ([place]) Comment on above: Result Comment: Inte rpretive Values Based on Total 25(OH) Vitamin D: Deficient <20 ng/mL Insufficient 20 - <30 ng/mL Sufficient 30-100 ng/mL Performed By: #### V IDH, LIPID, GFR, CMP, CBC, ANEU, TSH, ADIFF #### [address] [address] BD BONE DENSITY DEXA AXIAL S KELETONon [...] AM Ordering Provider: ИВАН LOPEZ [facility] ([place]) Absolute lymphocyte countOrd ered By: Thomas Mayen on 11-29-2023 Lymphocytes Auto (Unsp spec) [#/Vol] 1.22 10*3/uL 0.83-4.51 [facility] Automated lymphocyte count a s percentage of total leukocytesOrdered By: Thomas Mayen on 11-29-2023 Lymphocytes/100 WBC Auto (Unsp spec) 8.4 % 19-41 [facility] Basophil percentageOrdered B y: Thomas Mayen on 11-29-2023 Basophils/100 WBC (Bld) 0.1 % 0-1 [facility] Chloride [Moles/Vol] 110 mmol/L 98-107 [facility] Eosinophils/100 WBC (Bld) 0.3 % 0-5 [facility] Glucose [Mass/Vol] 140 mg/dL 74-106 [facility] Comment on above: Fasting Glucose resu lt greater than or equal to 126 mg/dL suggests DIABETES MELLITUS per A.D.A. criteria. Hemoglobin (Bld) [Mass/Vol] 14.8 g/dL 12.0-15.0 [facility] Monocytes/100 WBC (Bld) 5.9 % 0-10 [facility] Neutrophils (Bld) [#/Vol] 12.3 10*3/uL 2.0-7.7 [facility] Neutrophils/100 WBC (Bld) 84.9 % 47-70 [facility] Potassium [Moles/Vol] 3.8 mmol/L 3.5-5.[address] [facility] Sodium [Moles/Vol] 140 mmol/L 136-145 [facility] WBC (Bld) [#/Vol] 14.5 10*3/uL 4.4-11.0 [facility] Determination of erythrocyte mean corpuscular volume (MCV)Ordered By: Thomas Mayen on 11-29-2023 MCV (RBC) [Entitic vol] 99.8 fL 81-99 [facility] Erythrocyte distribution wid th ratioOrdered By: Thomas Mayen on 11-29-2023 Erythrocyte distribution width (RBC) [Ratio] 12.2 % 11.6-14.6 [facility] Erythrocyte distribution wid th standard deviationOrdered By: Thomas Myaen on 11-29-2023 Erythrocyte distribution width (RBC) [Entitic vol] 44.4 fL 35.1-43.9 [facility] Hematocrit Auto (Bld) [Volum e fraction]Ordered By: Thomas Mayen on 11-29-2023 Hematocrit (Bld) [Volume fraction] 46.2 % 37-47 [facility] Immature granulocytes/100 WB C Auto (Bld)Ordered By: Thomas Mayen on 11-29-2023 Immature granulocytes/100 WBC (Bld) 0.400 % 0.0-0.9 [facility] Comment on above: IG% - Immature Granu locytes (promyelocytes, myelocytes and metamyelocytes) > 1% indicates that a LEFT SHIFT is Present. Laboratory - Chemistry and C hemistry - challengeOrdered By: Thomas Mayen on 11-29-2023 CO2 [Moles/Vol] 26.0 mmol/L 21.0-32.0 [facility] Urea nitrogen/Creatinine [Mass ratio] 25.5 mg/mg 10-20 [facility] Laboratory - Hematology and Cell countsOrdered By: Thomas Mayen on 11-29-2023 MCH (RBC) [Entitic mass] 32.0 pg 27.0-32.0 [facility] MCHC (RBC) [Mass/Vol] 32.0 g/dL 32-[address] [facility] Nucleated RBC/100 WBC (Bld) [Ratio] 0 % 0-5 [facility] Platelets (Bld) [#/Vol] 233 10*3/uL 150-450 [facility] Laboratory - Microbiology an d Antimicrobial susceptibilityOrdered By: Thomas Mayen on 11-29-2023 SARS-CoV-2 (COVID-19) RNA CHELSIE+probe Ql (Unsp spec) [facility] No Panel InformationOrdered By: Thomas Mayen on 11-29-2023 Troponin I High Sensitivity 14 pg/mL 3.0-54.0 [facility] Comment on above: Please Note: [place] t Units and Gender Specific Reference Ranges. For more information see Policy Stat Procedure [place] High Sensitivity Troponin (TNIH) and attachments. Estimated Creatinine Clearance Calc 52.86 ml/min [facility] Estimated GFR (MDRD) Amer 90 mL/min >60 [facility] Comment on above: GFR Calc Estimated GFR (MDRD) Non-Af Amer 74 mL/min >60 [facility] Comment on above: Non- GFR Calc Platelet mean volume Sanjiv-Ec ker (Bld) [Entitic vol]Ordered By: Thomas Mayen on 11-29-2023 Platelet mean volume (Bld) [Entitic vol] 11.5 fL 6.2-12.0 [facility] RBC Auto (Bld) [#/Vol]Ordere d By: Thomas Mayen on 11-29-2023 RBC (Bld) [#/Vol] 4.63 10*6/uL 4.2-5.4 [facility] Serum or plasma calcium isela urement (mass/volume)Ordered By: Thomas Mayen on 11-29-2023 Calcium [Mass/Vol] 8.8 mg/dL 8.5-10.1 [facility] Serum or plasma creatinine m easurement (mass/volume)Ordered By: Thomas Mayen on 11-29-2023 Creatinine [Mass/Vol] 0.78 mg/dL 0.55-1.[address] [facility] Comment on above: The validity of the calculated GFR & GFRAA in patients over 70 years has not been determined. Clinical correlation is essential. Serum or plasma urea nitroge n measurement (mass/volume)Ordered By: Thomas Mayen on 11-29-2023 Urea nitrogen [Mass/Vol] 20 mg/dL 7-18 [facility] Thin prep Papanicolaou smear with manual screeningOrdered By: Thomas Mayen on 11-29-2023 Thin prep Papanicolaou smear with manual screening 4 5-15 [facility] LABORATORYOrdered By: Loy Dhillon on 11-30-2022 [...] cfu/ml. No Significant growth. Sensitivity not indicated. [facility] AMIKACIN:SUSC:PT:ISOLATE:ORD QN:MICon 11-24-2022 Amikacin BENEDICT [Susc] >100,000 cfu/ml Escherichia coli [facility] Amikacin BENEDICT [Susc]on 2022 Escherichia coli Escherichia coli [facility] CEFAZOLIN:SUSC:PT:ISOLATE:OR DQN:MICon 08-23-2022 ceFAZolin BENEDICT [Susc] >100,000 cfu/ml Escherichia coli [facility] ceFAZolin BENEDICT [Susc]on 08-23 Escherichia coli Escherichia coli [facility] LABORATORYOrdered By: Loy Dhillon on 02-02-2022 [...] Chemistry S OTARon 06-30-2020 OT Assessment Report [facility] Occupational Therapy Community Mobility and IADL Report [...] she demonstrated functional vision as required by 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 [facility] [address] MEDICAL REC #: [id number] [place] [address] ADMIT DATE: SERVICE DATE: 06/30/20 Occupational Therapy [...] Henry's current situation and indication for driving cessation/fdc as highlighted in this report. She has excellent support available while in wonderful situation that promotes her autonomy while she has assist as needed. Her current license is suspended with this therapist recommending that Henry's daughter take her to get [place] identification card in future at the [facility] while this therapist will provide information to physician to report concern to [facility]. Also discussed recommendation for increased activity and possible counseling and socialization with peers while expect she would benefit from all of the options if she is willing. Date: 07/07/2020 Occupational Therapist/Recycling Assistant Navigating Officer signature Please Note: The results and recommendations included in the Recycling Assistant Evaluation Report are based on the patient's [...] may compromise the patient's ability as a carry all driver, this report can longer be relied upon as valid. If the patient's physical and mental status remains the same as during the evaluation period, the recommendations in the report should be considered valid for 6 months. Beyond that time, a re - evaluation may be necessary. Signed by: JUAN CARLOS RIVERO, OT/L, CDRS, CDI/PD 07/07/2020 14:08:35 [facility] PATIENT NAME: HENRY DEGROOT [address] [facility] MEDICAL REC #: [id number] [place] [address] ADMIT DATE: SERVICE DATE: 06/30/20 Occupational Therapy Assessment ATTENDING DESEAN: Mesha Dean [facility] Occupational Therapy Performance Skills Evaluation Therapy Diagnosis: [...] Initial Evaluation Date: 06/30/2020 Referring Clinician: ELLEN HendersonEFFICIENCY MANAGER Medical Diagnosis: R MCA stroke Date of Onset: 02/2016 Past Medical History: breast cancer, laser surgery on B eyes for pressure (glaucoma), B cataract surgery, 02/17 R CVA, 02/19 seizure (uncertain if she also has macular degeneration in her R eye), elevated cholesterol, depression Current Medications: Eliquis, Pravastatin, Toprol, Levetiracetem, Duloxetine, Spearman Q, Joint Advantage, Preservision AREDS, tylenol Demographics: Age: 80Y Gender: Female Primary Language: Portuguese Preferred Language: Portuguese Screening for COVID-19 Does the patient/client present [...] all self care tasks on her own [facility] PATIENT NAME: HENRY DEGROOT [address] [facility] MEDICAL REC #: [id number] [place] [address] ADMIT DATE: SERVICE DATE: 06/30/20 Occupational Therapy [...] 8 years of formal schooling (raised in [facility]); worked for 20 years at [employer]; reading, word searches, cooking Driving History: Driving for: not sure at what age she started driving while she stopped when she was 75 due to having the stroke years. 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 Traffic Violations: Patient does not have any traffic violations. Patient Report: Henry shared that she would like to move out on her own to [facility] while also sharing that she owns a condo in [place] she could also consider although it is rented out. She is also interested in considering involvement in [employer] program however she has never been involved with this previously and is not certain where the options exist. She shared that she thinks she is capable of moving out on her own while also included that she would like to find a man in the future also. 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 did not indicate pain [facility] PATIENT NAME: HENRY DEGROOT [address] [facility] [facility] MEDICAL REC #: [id number] [place] [address] ADMIT DATE: SERVICE DATE: 06/30/20 Occupational Therapy Assessment ATTENDING DESEAN: Mesha Dean Social History: Marital Status: since 2017 Children: 2 daughters Reside: lives in same house with 1, other lives in [facility] Employment Status: none Recreational Activities/Hobbies: none indicated [...] keep moving back to left COGNITION Screening [facility] PATIENT NAME: HENRY DEGROOT [address] [facility] [facility] [address] MEDICAL REC #: [id number] [place] [address] ADMIT DATE: SERVICE DATE: 06/30/20 Occupational Therapy Assessment ATTENDING DESEAN: Mesha Dean Orientation: No impairment detected (5/5 correct orientation reponses). Attention: [place] [facility] making test Part B: 278 seconds - impaired. Functional performance on this alternating attention task <180 sec therefore not within same. Safety/Judgment/Problem Solving: No impairment detected (identifies 3/3 appropriate solutions for emergency responses). Memory: score of 4 on Short Blessed Cognitive screen which is in normal to minimally impaired range Also noted during the evaluation: Attention - required redirection multiple times. [place] thinking. Delayed processing. Tangential speech. Perseveration. Impulsivity. [...] lacking sense of pressure while unable to community service representative the same. Coordination: Within functional limits. Rapid [...] at their daughter's house who was willing [facility] PATIENT NAME: HENRY DEGROOT [address] [facility] [facility] [address] MEDICAL REC #: [id number] [place] [address] ADMIT DATE: SERVICE DATE: 06/30/20 Occupational Therapy [...] about moving out on her own into [facility] in [facility]. Henry also has not been out of the house for about 1.5 years other than for appointments while she refuses to go to [employer] to do her own shopping with her [...] various concerns indicated in this report, driving fdc/cessation necessary. This therapist did talk at length [...] exercise/activity plan. Cognitive functioning. Audience: Patient., daughter [facility] PATIENT NAME: HENRY DEGROOT [address] [facility] [facility] [address] MEDICAL REC #: [id number] [place] [id number] ADMIT DATE: SERVICE DATE: 06/30/20 Occupational Therapy Assessment ATTENDING DESEAN: Mesha Dean Mode: Explanation. Printed material provided. Response: Applied knowledge. Verbalized understanding. Demonstrated skill. Needs reinforcement. ASSESSMENT Support Structure: Support structure is good. Family member willing to assist patient. Response to Evaluation: The session was tolerated fairly, as evidenced by: Henry was upset with the fdc from driving indication. PLAN Necessity: Patient does [...] minutes (Timed: 90, Untimed: 60) 90.00 Timed: [49963] OT-ADL/HOME MGT EACH 15 MIN* 60.00 Untimed: [37537] OT-EVALUATION HIGH COMPLEX Signed by: JUAN CARLOS RIVERO OT/Wendy, CDRS, CDI/PD 07/04/2020 16:07:29 [facility] PATIENT NAME: HENRY DEGROOT [address] [facility] [facility] [address] MEDICAL REC #: [id number] [place] [address] ADMIT DATE: SERVICE DATE: 06/30/20 Occupational Therapy Assessment ATTENDING PHY: Mesha Dean [facility] CR Chest PA/LATon 04-12-2018 CR Chest PA/LAT Patient Name: HENRY DEGROOT Diagnostic Radiology Exam Date/Time 04/12/2018 13:14:04 EDT Exam CR Chest PA/LAT Ordering Physician DENNY JOSE AMANDA A. Accession Number [id number] CPT4 Codes 25268 () Reason For Exam palpitations Report CHEST: [...] Transcribed Date and Time: 04/12/2018 1:[address] [facility] CT Head or Brain w/o Contras ton 04-12-2018 CT Head or Brain w/o Contrast Patient Name: HENRY DEGROOT CT Exam Date/Time 04/12/2018 12:21:[address] Head or Brain w/o Contrast Ordering Physician DENNY JOSE, CAS Hilliard Accession Number [id number] CPT4 Codes 96642 () Reason For Exam dizzy Report CLINICAL [...] Transcribed Date and Time: 04/12/2018 12:[address] [facility] Comp Metabolic Panelon 04-12 Alanine aminotransferase (ALT) 21 U/L Normal 13-69 [facility] Comment on above: Performed By: #### H EMDF, CMP3, MG3, TROPN ####[facility] [employer] [id number] [place] [address] Alkaline phosphatase (ALP) 58 U/L Normal 38-[address] [facility] Comment on above: Performed By: #### H EMDF, CMP3, MG3, TROPN ####[place] [id number] [place] [address] Anion gap [address] [facility] Comment on above: Performed By: #### H EMDF, CMP3, MG3, TROPN ####[address] Aspartate aminotransferase (AST) 27 U/L Normal 15-46 [facility] Comment on above: Performed By: #### H EMDF, CMP3, MG3, TROPN ####[address] Calcium 9.5 mg/dL Normal 8.4-10.[address] [facility] Comment on above: Performed By: #### H EMDF, CMP3, MG3, TROPN ####[address] CO2 28 mmol/L Normal 22-[address] [facility] Comment on above: Performed By: #### H EMDF, CMP3, MG3, TROPN ####[address] Glucose mass conc 113 mg/dL High 70-100 [facility] Comment on above: Performed By: #### H EMDF, CMP3, MG3, TROPN ####[address] Protein 6.9 g/dL Normal 6.3-8.[address] [facility] Comment on above: Performed By: #### H EMDF, CMP3, MG3, TROPN ####[address] Urea nitrogen 18 mg/dL Normal 7-20 [facility] Comment on above: Performed By: #### H EMDF, CMP3, MG3, TROPN ####[address] Bilirubin (total) 0.5 mg/dL Normal 0.2-1.3 [facility] Comment on above: Performed By: #### H EMDF, CMP3, MG3, TROPN ####[place] [address] [place], [place] Creatinine 0.70 mg/dL Normal 0.52-1.[address] [facility] Comment on above: Performed By: #### H EMDF, CMP3, MG3, TROPN ####[place] [address] [place], [place] eGFR (black) mL/min/{1.73_m2} Normal >[address] [facility] Comment on above: Performed By: #### H EMDF, CMP3, MG3, TROPN ####[address] eGFR (non-black) mL/min/{1.73_m2} Normal >60 [facility] Comment on above: Result Comment: Sour ce- MDRD equation with creatinine calibration to IDMS(NKDEP) eGFR not recommended for drug dose adjustment Performed By: #### H EMDF, CMP3, MG3, TROPN ####[address] Albumin 3.8 g/dL Normal 3.5-5.[address] [facility] Comment on above: Performed By: #### H EMDF, CMP3, MG3, TROPN ####[address] Chloride 107 mmol/L Normal 98-[address] [facility] Comment on above: Performed By: #### H EMDF, CMP3, MG3, TROPN ####[address] Potassium molar conc 4.1 mmol/L Normal 3.5-5.1 [facility] Comment on above: Performed By: #### H EMDF, CMP3, MG3, TROPN ####[address] Sodium 140 mmol/L Normal 137-[address] [facility] Comment on above: Performed By: #### H EMDF, CMP3, MG3, TROPN ####[address] Hemogram w/ Autodiffon 04-12 Abs Baso Cnt 0.0 10*3/uL Normal 0.0-0.2 [facility] Comment on above: Performed By: #### H EMDF, CMP3, MG3, TROPN ####[address] Basophils/100 WBC Auto (Bld) 0.4 % Normal 0.0-2.[address] [facility] Comment on above: Performed By: #### H EMDF, CMP3, MG3, TROPN ####[address] Eosinophils 0.1 10*3/uL Normal 0.0-0.[address] [facility] Comment on above: Performed By: #### H EMDF, CMP3, MG3, TROPN ####[address] Eosinophils/100 leukocytes 1.2 % Normal 1.0-6.[address] [facility] Comment on above: Performed By: #### H EMDF, CMP3, MG3, TROPN ####[address] Erythrocyte distribution width Auto Ratio (RBC) 12.6 % Normal 11.5-14.[address] [facility] Comment on above: Performed By: #### H EMDF, CMP3, MG3, TROPN ####[address] Erythrocytes (RBC) 4.34 10*6/uL Normal 3.80-5.20 [facility] Comment on above: Performed By: #### H EMDF, CMP3, MG3, TROPN ####[address] Granulocytes/100 WBC (Bld) 58.4 % Normal 40.0-80.[address] [facility] Comment on above: Performed By: #### H EMDF, CMP3, MG3, TROPN ####[address] Hematocrit (HCT) 42.4 % Normal 35.0-47.0 [facility] Comment on above: Performed By: #### H EMDF, CMP3, MG3, TROPN ####[address] Hemoglobin mass conc (Bld) 14.7 g/dL Normal 11.7-16.[address] [facility] Comment on above: Performed By: #### H EMDF, CMP3, MG3, TROPN ####[address] Lymphocytes 2.1 10*3/uL Normal 1.0-4.[address] [facility] Comment on above: Performed By: #### H EMDF, CMP3, MG3, TROPN ####[address] Lymphocytes/100 leukocytes 27.3 % Normal 20.0-40.[address] [facility] Comment on above: Performed By: #### H EMDF, CMP3, MG3, TROPN ####[address] MCH 33.8 pg Normal 26.0-34.[address] [facility] Comment on above: Performed By: #### H EMDF, CMP3, MG3, TROPN ####[address] MCHC mass conc (RBC) 34.6 % Normal 32.0-36.0 [facility] Comment on above: Performed By: #### H EMDF, CMP3, MG3, TROPN ####[address] MCV 97.7 fL Normal 79.0-98.[address] [facility] Comment on above: Performed By: #### H EMDF, CMP3, MG3, TROPN ####[address] Monocytes 1.0 10*3/uL High 0.0-0.[address] [facility] Comment on above: Performed By: #### H EMDF, CMP3, MG3, TROPN ####[address] [address] [place], [place] Monocytes/100 leukocytes 12.7 % High 2.0-10.[address] [facility] Comment on above: Performed By: #### H EMDF, CMP3, MG3, TROPN ####[place] [place] Neutrophils 4.5 10*3/uL Normal 1.8-7.[address] [facility] Comment on above: Performed By: #### H EMDF, CMP3, MG3, TROPN ####[address] Platelet mean volume (PMV) 9.3 fL Normal 7.4-10.[address] [facility] Comment on above: Performed By: #### H EMDF, CMP3, MG3, TROPN ####[address] Platelets 214 10*3/uL Normal 140-[address] [facility] Comment on above: Performed By: #### H EMDF, CMP3, MG3, TROPN ####[address] WBC (Leukocytes) 7.8 10*3/uL Normal 3.6-10.7 [facility] Comment on above: Performed By: #### H EMDF, CMP3, MG3, TROPN ####[address] Magnesiumon 04-12-2018 Magnesium 2.1 mg/dL Normal 1.6-2.[address] [facility] Comment on above: Performed By: #### H EMDF, CMP3, MG3, TROPN ####[address] Troponin Ion 04-12-2018 Troponin I.cardiac mass conc ng/mL Normal 0.000-0.[address] [facility] Comment on above: Result Comment: 0.04 6 - 0.400 = Indeterminate> 0.400 = Consider Myocardial Injury Performed By: #### H EMDF, CMP3, MG3, TROPN ####[place] [address] [place] [address] Lab Report: Lipid Profileon 10-17-2017 Cholesterol 168 mg/dL Invalid Interpretation Code 200 [employer] Work Phone: [phone] HDL Cholesterol 98 mg/dL Invalid Interpretation Code [employer] Work Phone: [phone] LDL Cholesterol 57 mg/dL Invalid Interpretation Code 0-130 [employer] Work Phone: [phone] Triglyceride 64 mg/dL Invalid Interpretation Code [employer] Work Phone: [phone] very low density lipoproteins 13 mg/dL Invalid Interpretation Code 5-40 [employer] Work Phone: [phone] Lab Report: Liver Profileon 10-17-2017 Alanine aminotransferase (ALT) 20 U/L Invalid Interpretation Code 12-78 [employer] Work Phone: [phone] Albumin 3.4 g/dL Invalid Interpretation Code 3.4-5.0 [employer] Work Phone: [phone] Alkaline phosphatase (ALP) 68 U/L Invalid Interpretation Code 45-117 [employer] Work Phone: [phone] Aspartate aminotransferase (AST) 19 U/L Invalid Interpretation Code 15-37 [employer] Work Phone: [phone] Bilirubin (direct) 0.16 mg/dL Invalid Interpretation Code 0.00-0.30 [employer] Work Phone: [phone] Bilirubin (total) 0.70 mg/dL Invalid Interpretation Code 0.20-1.00 [employer] Work Phone: [phone] Globulin 3.5 g/dL Invalid Interpretation Code 2.2-4.2 [employer] Work Phone: [phone] Protein 6.9 g/dL Invalid Interpretation Code 6.4-8.2 [employer] Work Phone: [phone] Office Visiton 08-05-2017 Documentation of current medications (procedure) Done Invalid Interpretation Code [employer] Phone: [phone] Protein mass conc Done Invalid Interpretation Code [employer] Work Phone: Chart Maintenanceon 08-01-20 17 Left ventricular Ejection fraction 50 % Invalid Interpretation Code [employer] Work Phone: VL ARTERIAL BILATERAL LOWER EXT [...] PM Sign Date: 05/16/2017 2:47:04 PM Normal [facility] Office Visiton 04-25-2017 Documentation of current medications (procedure) Done Invalid Interpretation Code [employer] Work Phone: Protein mass conc Done [employer] Work Phone: Lab Report: Lipid Profileon 04-17-2017 Cholesterol in HDL mass conc 83 mg/dL Invalid Interpretation Code [employer] Work Phone: Cholesterol in LDL mass conc 67 mg/dL Invalid Interpretation Code 0-130 [employer] Work Phone: Cholesterol mass conc 162 mg/dL Invalid Interpretation Code 200 [employer] Work Phone: [phone] Lipoprotein.pre-beta mass conc 12 mg/dL Invalid Interpretation Code 5-40 [facility] [employer] Work Phone: [phone] Triglyceride mass conc 62 mg/dL Invalid Interpretation Code [facility] [employer] Work Phone: [phone] Lab Report: Liver Profileon 04-17-2017 Albumin mass conc 3.5 g/dL Invalid Interpretation Code 3.4-5.0 [employer] Work Phone: [phone] Alkaline phosphatase (ALP) 56 U/L Invalid Interpretation Code 45-117 [facility] [employer] Work Phone: [phone] ALP enzyme act/vol (Bld) 56 U/L Invalid Interpretation Code 45-117 [facility] [employer] Work Phone: [phone] ALT enzyme act/vol 32 U/L Invalid Interpretation Code 12-78 [facility] [employer] Work Phone: [phone] AST enzyme act/vol 26 U/L Invalid Interpretation Code 15-37 [facility] [employer] Work Phone: [phone] Bilirubin mass conc 0.70 mg/dL Invalid Interpretation Code 0.20-1.00 [facility] [employer] Work Phone: [phone] Bilirubin.direct mass conc 0.19 mg/dL Invalid Interpretation Code 0.00-0.30 [facility] [employer] Work Phone: [phone] Globulin 3.6 g/dL High 2.3-3.5 [facility] [employer] Work Phone: [phone] Globulin mass conc (S) 3.6 g/dL High 2.3-3.5 [facility] [employer] Work Phone: [phone] Protein mass conc 7.1 g/dL Invalid Interpretation Code 6.4-8.2 [facility] [employer] Work Phone: [phone] Lab Report: T4 Total, Thyrox inon 10-22-2016 Thyroxine (T4) 13.9 ug/dL Invalid Interpretation Code 4.8-13.9 [facility] [employer] Work Phone: [phone] Lab Report: Thyroid Stim Hor jaylyn (TSH)on 10-22-2016 Thyroid stimulating hormone (TSH) 0.97 u[iU]/mL Invalid Interpretation Code 0.358-3.74 [facility] Work Phone: [phone] Lab Report: Lipid Profileon 10-15-2016 Cholesterol 175 mg/dL 200 [facility] Work Phone: [phone] HDL Cholesterol 84 mg/dL [facility] [employer] [employer] Work Phone: [phone] LDL Cholesterol 76 mg/dL 0-130 [facility] Work Phone: [phone] Triglyceride 76 mg/dL [employer] [facility] [employer] Work Phone: [phone] very low density lipoproteins 15 mg/dL 5-40 [facility] Work Phone: [phone] Lab Report: Liver Profileon 10-15-2016 Alanine aminotransferase (ALT) 28 U/L 12-78 [facility] Work Phone: [phone] Albumin 3.6 g/dL 3.4-5.0 [facility] Work Phone: [phone] Alkaline phosphatase (ALP) 55 U/L Invalid Interpretation Code 45-117 [facility] Work Phone: [phone] ALP enzyme act/vol (Bld) 55 U/L 45-117 [facility] Work Phone: [phone] Aspartate aminotransferase (AST) 23 U/L 15-37 [facility] Work Phone: [phone] Bilirubin (direct) 0.18 mg/dL 0.00-0.30 [facility] Work Phone: [phone] Bilirubin (total) 0.70 mg/dL 0.20-1.00 [facility] Work Phone: [phone] Globulin 3.7 g/dL High 2.3-3.5 [facility] Work Phone: [phone] Globulin mass conc (S) 3.7 g/dL High 2.3-3.5 [facility] Work Phone: [phone] Protein 7.3 g/dL 6.4-8.2 [facility] Work Phone: [phone] Office Visiton 10-15-2016 Documentation of current medications (procedure) Done Invalid Interpretation Code [facility] Work Phone: Protein mass conc Done [facility] Work Phone: [phone] Tobacco smoking status NHIS Tobacco smoking status NHIS Invalid Interpretation Code [facility] Work Phone: [phone] Tobacco smoking status NHIS Never smoker Invalid Interpretation Code [facility] Work Phone: [phone] Tobacco use CP Never smoker Invalid Interpretation Code [facility] Work Phone: [phone] Replaced Document: Bruce Altamirano 10-15-2016 EKG QRS axis 22 deg Invalid Interpretation Code [facility] Work Phone: [phone] electrocardiogram interpretation Sinus Rhythm Low voltage in precordial leads. ABNORMAL Invalid Interpretation Code [facility] Work Phone: [phone] GE use only - for [employer] import when terms are not otherwise specified 443 ms Invalid Interpretation Code [facility] Work Phone: [phone] Interpretation Sinus Rhythm Low voltage in precordial leads. ABNORMAL Invalid Interpretation Code [facility] Work Phone: [phone] P [place] 60 deg Invalid Interpretation Code [facility] Work Phone: [phone] P wave axis, electrocardiogram 60 deg Invalid Interpretation Code [facility] Work Phone: [phone] VA Interval 200 ms Invalid Interpretation Code [facility] Work Phone: [phone] VA interval, electrocardiogram 200 ms Invalid Interpretation Code [facility] Work Phone: [phone] Pulse (Heart Rate) 63 /min Invalid Interpretation Code [facility] Work Phone: [phone] QRS axis, electrocardiogram 22 deg Invalid Interpretation Code [facility] Work Phone: [phone] QRS Duration 84 ms Invalid Interpretation Code [facility] Work Phone: [phone] QRS duration, electrocardiogram 84 ms Invalid Interpretation Code [facility] Work Phone: [phone] QT Interval new path ms Invalid Interpretation Code [facility] Work Phone: [phone] QT interval, electrocardiogram new path ms Invalid Interpretation Code [facility] Work Phone: [phone] QTc Harris 443 ms Invalid Interpretation Code [facility] Work Phone: T [place] 26 deg Invalid Interpretation Code [facility] Work Phone: [phone] T wave axis, electrocardiogram 26 deg Invalid Interpretation Code [facility] Work Phone: [phone] Lab Report: CBC W/Diff, Auto - EPLAB Onlyon 06-28-2016 Basophils/100 leukocytes 0.8 % Invalid Interpretation Code 0-1 [facility] Work Phone: [phone] Basophils/100 WBC (Bld) 0.8 % 0-1 [facility] Work Phone: [phone] Eosinophils/100 leukocytes 1.0 % Invalid Interpretation Code 0-5 [employer] Work Phone: [phone] Eosinophils/100 WBC (Bld) 1.0 % 0-5 [facility] Work Phone: [phone] Erythrocyte distribution width Ratio (RBC) 11.5 % Low 11.6-14.6 [employer] Work Phone: [phone] Erythrocytes (RBC) 4.52 10*6/uL Invalid Interpretation Code 4.2-5.4 [employer] Work Phone: [phone] Hematocrit (HCT) 44.6 % Invalid Interpretation Code 37-47 [employer] Work Phone: [phone] Hematocrit Volume Fraction (Bld) 44.6 % 37-47 [employer] Work Phone: [phone] Hemoglobin (HGB) 15.1 g/dL High 12.0-15.0 [employer] Work Phone: [phone] Lymphocytes 2.37 X10 3/UL Invalid Interpretation Code 0.83-4.51 [employer] Work Phone: [phone] Lymphocytes #/vol (Bld) 2.37 X10 3/UL 0.83-4.51 [employer] Work Phone: [phone] Lymphocytes/100 leukocytes 23.4 % Invalid Interpretation Code 19-41 [employer] Work Phone: [phone] Lymphocytes/100 WBC (Bld) 23.4 % - [employer] Work Phone: [phone] MCH 33.3 pg High 27.0-32.0 [facility] Work Phone: [phone] MCH Entitic mass (RBC) 33.3 pg [...] leukocytes 8.2 % Invalid Interpretation Code 0-10 [facility] Work Phone: [phone] Monocytes/100 WBC (Bld) 8.2 % 0-10 [facility] Work Phone: [phone] neutrophil count, blood 6.8 X10 3/UL Invalid Interpretation Code 2.0-7.7 [facility] Work Phone: [phone] Neutrophils #/vol (Bld) 6.8 X10 3/UL 2.0-7.7 [facility] Work Phone: [phone] Neutrophils Auto #/vol (Bld) 6.8 X10 3/UL Invalid Interpretation Code 2.0-7.7 [facility] Work Phone: [phone] Neutrophils/100 leukocytes 66.7 % Invalid Interpretation Code 47-70 [facility] Work [phone] Neutrophils/100 WBC (Bld) 66.7 % 47-70 [facility] Work Phone: [phone] Platelet mean volume Entitic volume (Bld) 8.9 fL 6.2-12.0 [facility] Work Phone: [phone] Platelets 149 10*3/mm3 Low 150-450 [facility] Work Phone: [phone] Platelets #/vol (Bld) 149 10*3/mm3 Low 150-450 [facility] Work Phone: [phone] PMV by Sanjiv-Aleisha 8.9 fL Invalid Interpretation Code 6.2-12.0 [employer] Work Phone: [phone] RBC #/vol (Bld) 4.52 10*6/uL 4.2-5.4 [employer] Work Phone: [phone] RDW-CA 11.5 % Low 11.6-14.6 [employer] Work Phone: [phone] WBC #/vol (Bld) 10.2 10*3/uL 4.4-11.0 [employer] Work Phone: [phone] WBC (Leukocytes) 10.2 10*3/uL Invalid Interpretation Code 4.4-11.0 [employer] Work Phone: [phone] Lab Report: [facility] 06-28-2016 Albumin/Globulin Ratio 0.9 {ratio} Invalid Interpretation Code 0.9-2.4 [employer] Work Phone: [phone] Anion gap 8 mmol/L Invalid Interpretation Code 5-15 [employer] Work Phone: [phone] Anion gap 4 molar conc 8 Invalid Interpretation Code 5-15 [employer] Work Phone: [phone] Anion gap molar conc 8 mmol/L 5-15 [employer] Work Phone: [phone] BUN/Creatinine Ratio 20.8 RATIO High 10-20 [employer] Work Phone: [phone] Calcium 9.0 mg/dL Invalid Interpretation Code 8.5-10.1 [employer] Work Phone: [phone] Chloride 105 mmol/L Invalid Interpretation Code 98-107 [employer] Work Phone: [phone] CO2 24.0 mmol/L Invalid Interpretation Code 21.0-32.0 [employer] Work Phone: [phone] CO2 ppres (BldV) 24.0 mmol/L Invalid Interpretation Code 21.0-32.0 [employer] Work Phone: [phone] Creatinine 0.87 mg/dL Invalid Interpretation Code 0.55-1.20 [employer] Work Phone: [phone] eGFR (non-black) 82 mL/min/{1.73_m2} Invalid Interpretation Code >60 [facility] Work Phone: [phone] eGFR (non-black) 68 mL/min/{1.73_m2} Invalid Interpretation Code >60 [facility] Work Phone: [phone] EST GFR - AA 82 mL/min Invalid Interpretation Code >60 [facility] Work Phone: [phone] Glucose 96 mg/dL Invalid Interpretation Code 70-110 [facility] Work Phone: [phone] Glucose mass conc 96 mg/dL Invalid Interpretation Code 70-110 [facility] Work Phone: [phone] Potassium 4.5 mmol/L Invalid Interpretation Code 3.5-5.1 [facility] Work Phone: [phone] Sodium 137 mmol/L Invalid Interpretation Code 136-145 [facility] Work Phone: [phone] Urea nitrogen 18 mg/dL Invalid Interpretation Code 7-18 [facility] Work Phone: [phone] Lab Report: [facility] 06-28-2016 lactate dehydrogenase - serum 233 U/L Invalid Interpretation Code 84-246 [facility] Work Phone: [phone] LDH 233 U/L Invalid Interpretation Code 84-246 [facility] Work Phone: [phone] Lab Report: Magnesiumon 06-05 Magnesium 2.0 mg/dL Invalid Interpretation Code 1.8-2.4 [facility] Work Phone: [phone] Lab Report: Uric Acidon 06-05 Urate 4.0 mg/dL Invalid Interpretation Code 2.6-6.0 [facility] Work Phone: [phone] Clinical Lists Update: Prelo armature balancer 02-17-2016 Left ventricular Ejection fraction 50 % [facility] Work Phone: [phone] Lab Report: ECBCDon 06-02-20 14 Absolute Neutrophil count 6.5 X10 3/UL Normal 2.0-7.7 [facility] Work Phone: [phone] ANC 6.5 X10 3/UL Normal 2.0-7.7 [facility] Work Phone: Vital Signs Date Time Vital Sign Value Performing Clinician Facility 09-30-2024 15:44-0500 Diastolic blood pressure 62 mm[Hg] Linus Fuchs MD Work Phone: [facility] 09-30-2024 15:44-0500 Heart rate 80 /min Linus Fuchs MD Work Phone: [facility] 09-30-2024 15:44-0500 Respiratory rate 20 /min Linus Fuchs MD Work Phone: [facility] 09-30-2024 15:44-0500 SaO2% (BldA) [Mass fraction] 100 % Linus Fuchs MD Work Phone: [facility] 09-30-2024 15:44-0500 Systolic blood pressure 110 mm[Hg] Linus Fuchs MD Work Phone: [facility] 09-30-2024 12:51-0500 Body temperature 98.1 [degF] Linus Fuchs MD Work Phone: [facility] 09-28-2024 11:00-0500 Body temperature 97.88 [degF] ИВАН LOPEZ DO [facility] 09-28-2024 11:00-0500 Diastolic Blood Pressure Non-Invasive 66 mm[Hg] ИВАН OLPEZ DO [facility] 09-28-2024 11:00-0500 Heart rate 64 /min ИВАН LOPEZ DO [facility] 09-28-2024 11:00-0500 Reason For Taking VItal Signs ИВАН LOPEZ DO [facility] 09-28-2024 11:00-0500 Respiratory rate 16 /min ИВАН LOPEZ DO [facility] 09-28-2024 11:00-0500 Systolic Blood Pressure Non-Invasive 112 mm[Hg] ИВАН LOPEZ DO [facility] 03-25-2024 11:20-0400 Body temperature 98.24 [degF] ИВАН LOPEZ DO [facility] 03-25-2024 11:20-0400 Diastolic Blood Pressure Non-Invasive 74 mm[Hg] ИВАН LOPEZ DO [facility] 03-25-2024 11:20-0400 Heart rate 72 /min ИВАН LOPEZ DO [facility] 03-25-2024 11:20-0400 Respiratory rate 18 /min ИАВН LOPEZ DO [facility] 03-25-2024 11:20-0400 Systolic Blood Pressure Non-Invasive 112 mm[Hg] ИВАН LOPEZ DO [facility] 11-29-2023 16:07-0500 Body temperature 98 [degF] [facility] 11-29-2023 16:07-0500 Diastolic blood pressure 60 mm[Hg] [facility] 11-29-2023 16:07-0500 Heart rate 80 /min [facility] 11-29-2023 16:07-0500 Respiratory rate 16 /min [facility] 11-29-2023 16:07-0500 Systolic blood pressure 116 mm[Hg] [facility] 11-29-2023 15:00-0500 SaO2% (BldA) [Mass fraction] 100 % [facility] 11-29-2023 11:11-0500 Body mass index (BMI) [Ratio] 30.7 kg/m2 [facility] 11-29-2023 11:11-0500 Body weight 78.5 kg [facility] 11-29-2023 10:56-0500 Body height 160.02 cm [facility] 09-24-2023 10:42-0500 Blood Pressure Location ИВАН LOPEZ DO [facility] 09-24-2023 10:42-0500 Blood Pressure Method ИВАН LOPEZ DO [facility] 09-24-2023 10:42-0500 Body temperature 97.34 [degF] ИВАН LOPEZ DO [facility] 09-24-2023 10:42-0500 Diastolic Blood Pressure Non-Invasive 64 mm[Hg] ИВАН JESSICA DO [facility] 09-24-2023 10:42-0500 Heart rate 70 /min ИВАН JESSICA DO [facility] 09-24-2023 10:42-0500 Reason For Taking VItal Signs ИВАН JESSICA [facility] 09-24-2023 10:42-0500 Respiratory rate 18 /min ИВАН LOPEZ DO [facility] 09-24-2023 10:42-0500 Systolic Blood Pressure Non-Invasive 125 mm[Hg] ИВАН LOPEZ DO [facility] 08-05-2017 08:34-0400 BMI (Body Mass Index) [...] 08:34-0400 Respiratory Rate 16 /min [employer] Work Phone: 08-05-2017 08:34-0400 Weight 69.4 kg [facility] [employer] Work Phone: 04-25-2017 14:23-0400 BP Diastolic 64 mm[Hg] [facility] [employer] Work Phone: 04-25-2017 14:23-0400 BP Systolic 148 mm[Hg] [facility] [employer] Work Phone: 04-25-2017 14:23-0400 Height 162.56 cm [facility] [employer] Work Phone: 04-25-2017 14:23-0400 Pulse (Heart Rate) 66 /min [employer] [employer] Work Phone: 04-25-2017 14:23-0400 Respiratory Rate 18 /min [employer] [employer] Work Phone: 10-15-2016 14:26-0500 Heart rate 63 /min Augusto Carter MD [facility] [employer] Work Phone: 10-15-2016 13:41-0500 BMI (Body Mass Index) 26.77 kg/m2 Augusto Carter MD [facility] [employer] Work Phone: 10-15-2016 13:41-0500 BP Diastolic 92 mm[Hg] Augusto Carter MD [facility] Work Phone: 10-15-2016 13:41-0500 BP Systolic 150 mm[Hg] Augusto Carter MD [facility] Work Phone: 10-15-2016 13:41-0500 BSA (Body Surface Area) 1.76 m2 Augusto Carter MD [facility] [employer] Work Phone: 10-15-2016 13:41-0500 Height 162.56 cm Augusto Carter MD [facility] Work Phone: 10-15-2016 13:41-0500 Pulse (Heart Rate) 66 /min Augusto Carter MD [facility] Work Phone: 10-15-2016 13:41-0500 Respiratory Rate 16 /min Augusto Carter MD [facility] Work Phone: 10-15-2016 13:41-0500 Weight 70.76 kg Augusto Carter MD [facility] Work Phone: 06-28-2016 13:23-0400 Body Temperature 97.2 [degF] Augusto Carter MD [facility] Work Phone: 06-28-2016 13:23-0400 Height 162.56 cm Augusto Carter MD [facility] Work Phone: 06-28-2016 13:23-0400 Pulse Oximetry 96 % Augusto Carter MD [facility] Work Phone: 06-28-2016 13:23-0400 Weight 76.73 kg Augusto Carter MD [facility] Work Phone: 03-23-2016 11:13-0400 Pulse Oximetry 93 % Augusto Carter MD [facility] Work Phone: Encounters Encounter Date Encounter Type Care Provider Facility Start: 09-05-2025 End: 09-05-2025 Emergency department patient visit Иван Lopez Facility:[facility] Start: 08-26-2025 ambulatory ИВАН LOPEZ DO Fac[facility] it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 [facility] Start: 03-31-2025 End: 03-31-2025 ambulatory ИВАН LOPEZ DO [facility] Start: 03-31-2025 End: 03-31-2025 SAME DAY STAY ИВАН LOPEZ DO [facility] Start: 02-26-2025 End: 03-02-2025 ambulatory ИВАН LOPEZ DO [facility] Start: 02-26-2025 End: 03-02-2025 Outreach Lab ИВАН LOPEZ DO [facility] Start: 02-19-2025 End: 02-19-2025 ambulatory ИВАН LOPEZ DO [facility] Start: 12-23-2024 End: 12-23-2024 ambulatory Иван Lopez [facility] Start: 11-18-2024 End: 11-18-2024 ambulatory Иван Lopez Facility:[facility] Start: 10-07-2024 End: 10-11-[address] RAMEZ BRUSH DO [facility] Start: 10-07-2024 End: 10-11-[address] RAMEZ BRUSH DO [facility] Start: 10-06-2024 End: 10-10-2024 ambulatory ИВАН LOPEZ DO [facility] Start: 10-06-2024 End: 10-10-[address] RAMEZ BRUSH DO [facility] Start: 09-30-2024 End: 09-30-2024 Emergency department patient visit Linus Fuchs MD Work Phone: [facility] Comment on above: Closed head injury, initial encounter (Primary Dx); Fall, initial encounter; Vasovagal syncope Start: 09-28-2024 ambulatory Tia Krishna Facility:[facility] Start: 09-28-2024 End: 09-28-2024 SAME DAY STAY ИВАН JESSICA DO [facility] Start: 09-28-2024 End: 09-28-2024 ambulatory ИВАН ALEXANDRAY DO [facility] Start: 09-21-2024 End: 09-21-2024 ambulatory Иван Jessica Facility:[facility] Start: 03-25-2024 End: 03-25-2024 ambulatory ИВАНVERN ALEXANDRAY DO Facility:[facility] Start: 03-25-2024 End: 03-25-2024 SAME DAY STAY ИВАН ALEXANDRAY DO [facility] Start: 03-17-2024 End: 03-18-2024 ambulatory ИВАН ALEXANDRAY DO Facility:[facility] Start: 03-17-2024 End: 03-17-2024 Patient encounter procedure ИВАН RICHARDSONLAY DO [facility] Start: 03-04-2024 End: 03-09-2024 ambulatory ИВАН LOPEZ DO Facility:[facility] Start: 03-04-2024 End: 03-08-2024 Outreach Lab ИВАН LOPEZ DO [facility] Start: 02-04-2024 End: 02-05-2024 ambulatory ИВАН ALEXANDRAY DO Facility:[facility] Start: 02-04-2024 End: 02-04-2024 Patient encounter procedure ИВАН RICHARDSONLAY DO [facility] Start: 01-13-2024 End: 01-14-2024 ambulatory ИВАН ALEXANDRAY DO Facility:[facility] Start: 01-13-2024 End: 01-13-2024 Patient encounter procedure ИВАНVERN RICHARDSONLAY DO [facility] Start: 11-29-2023 End: 11-29-2023 Emergency department patient visit [facility] Work Phone: Start: 09-24-2023 End: 09-24-2023 ambulatory ИВАН LOPEZ DO Facility:[facility] Start: 09-24-2023 End: 09-24-2023 SAME DAY STAY ИВАН LOPEZ DO [facility] Start: 11-30-2022 End: 12-04-2022 Outreach Lab JHON HOOD DO [facility] Start: 11-24-2022 End: 11-28-2022 Outreach Lab JHON HOOD DO [facility] Start: 08-23-2022 End: 08-27-2022 Outreach Lab ИВАН LOPEZ DO [facility] Start: 02-02-2022 End: 02-02-2022 Patient encounter procedure ИВАН LOPEZ DO [facility] Start: 10-23-2021 End: 10-23-2021 Patient encounter procedure ИВАН LOPEZ DO [facility] Start: 04-12-2018 Emergency department patient visit UNKNOWN PROVIDER [facility] Start: 05-16-2017 Ambulatory [facility] Facility: [facility] Date Procedure Procedure Detail Performing Clinician [...] 08-05-2017 Follow Up Appt 6 months Augusto aCrter MD Work Phone: Start: 04-25-2017 End: 04-25-2017 [...] DTaP/Tdap/Td Vaccines (2 - Td or Tdap) [facility] Start: 11-29-2023 [facility] Start: 11-04-2023 Medicare Advantage Annual Wellness Visit Medicare Advantage Annual Wellness Visit [facility] Start: 02-24-2018 End: 02-24-2018 Appointment Appointment [facility] Work Phone: Start: 10-17-2017 End: 04-17-2017 *Hepatic Function Panel *Hepatic Function Panel [facility] Work Phone: Start: 10-17-2017 End: 04-17-2017 Lipid 1996 panel *Lipid Profile CC PCP [facility] Work Phone: Start: 10-17-2017 End: 10-17-2017 *Hepatic Function Panel *Hepatic Function Panel [facility] Work Phone: Start: 10-17-2017 End: 10-17-2017 Lipid panel [AGGREGATE] *Lipid Profile CC PCP [facility] Work Phone: Start: 08-05-2017 End: 08-05-2017 RUTHANN BEAVERS [facility] Work Phone: Start: 08-05-2017 End: 08-05-2017 Follow Up Appt 6 months Follow Up Appt 6 months [facility] Work Phone: Start: 08-05-2017 End: 08-05-2017 Appointment Appointment [facility] Work Phone: Start: 08-05-2017 End: 08-05-2017 RUTHANN BEAVERS [facility] Work Phone: Start: 08-05-2017 End: 08-05-2017 Follow Up Appt 6 months Follow Up Appt 6 months [facility] Work Phone: Start: 07-29-2017 End: 07-29-2017 Appointment Appointment [facility] Work Phone: Start: 04-25-2017 End: 04-25-2017 RUTHANN BEAVERS [facility] Work Phone: Start: 04-25-2017 End: 04-25-2017 Follow Up Appt 3 months Follow Up Appt 3 months [facility] Work Phone: Start: 04-25-2017 End: 04-25-2017 Venous doppler Venous doppler [facility] Work Phone: Start: 04-25-2017 End: 04-25-2017 Appointment Appointment [facility] Work Phone: Start: 04-25-2017 End: 04-25-2017 Appointment Appointment [facility] Work Phone: Start: 04-25-2017 End: 04-25-2017 RUTHANN BEAVERS [facility] Work Phone: Start: 04-25-2017 End: 04-25-2017 Follow Up Appt 3 months Follow Up Appt 3 months [facility] Work Phone: Start: 04-25-2017 End: 04-25-2017 Venous doppler Venous doppler [facility] Work Phone: Start: 04-15-2017 End: 04-17-2017 *Hepatic Function Panel *Hepatic Function Panel [facility] Work Phone: Start: 04-15-2017 End: 04-17-2017 Lipid 1996 panel *Lipid Profile CC PCP [facility] Work Phone: Start: 04-15-2017 End: 04-17-2017 *Hepatic Function Panel *Hepatic Function Panel [employer] [facility] Work Phone: Start: 04-15-2017 End: 04-17-2017 Lipid panel [AGGREGATE] *Lipid Profile CC PCP [facility] Work Phone: Start: 10-15-2016 End: 10-15-2016 DJN DJN [facility] Work Phone: Start: 10-15-2016 End: 10-15-2016 Ecg routine ecg w/least 12 lds w/i&r EKG (In office) [facility] Work Phone: Start: 10-15-2016 End: 10-15-2016 Follow Up Appt 6 months Follow Up Appt 6 months [facility] Work Phone: Start: 10-15-2016 End: 10-15-2016 T4 mass conc *T4 (Total) [facility] Work Phone: Start: 10-15-2016 End: 10-15-2016 Thyrotropin Qn *TSH [facility] Work Phone: Start: 10-15-2016 End: 10-15-2016 DJN PATRICIAN [employer] Work Phone: Start: 10-15-2016 End: 10-15-2016 Electrocardiogram, complete EKG (In office) [employer] Work Phone: Start: 10-15-2016 End: 10-15-2016 Follow Up Appt 6 months Follow Up Appt 6 months [facility] Work Phone: Start: 10-15-2016 End: 10-15-2016 Thyroid stimulating hormone (TSH) *TSH [facility] Work Phone: Start: 10-15-2016 End: 10-15-2016 Thyroxine (T4) *T4 (Total) [facility] Work Phone: Start: 10-05-2016 End: 10-15-2016 *Hepatic Function Panel *Hepatic Function Panel [facility] Work Phone: Start: 10-05-2016 End: 10-15-2016 Lipid 1996 panel *Lipid Profile CC PCP [facility] Work Phone: Start: 10-05-2016 End: 10-15-2016 *Hepatic Function Panel *Hepatic Function Panel [facility] Work Phone: Start: 10-05-2016 End: 10-15-2016 Lipid panel [AGGREGATE] *Lipid Profile CC PCP [facility] Work Phone: Start: 08-27-2016 End: 08-27-2016 Follow up Appt 1x/week Follow up Appt 1x/week [facility] Work Phone: Start: 08-27-2016 End: 08-27-2016 Follow up Appt 1x/week Follow up Appt 1x/week [facility] Work Phone: Start: 08-20-2016 End: 08-20-2016 Follow up Appt 1x/week Follow up Appt 1x/week [facility] Work Phone: Start: 08-20-2016 End: 08-20-2016 Follow up Appt 1x/week Follow up Appt 1x/week [facility] Work Phone: Start: 08-16-2016 End: 08-16-2016 Follow up Appt 1x/week Follow up Appt 1x/week [facility] Work Phone: Start: 08-16-2016 End: 08-16-2016 Follow up Appt 1x/week Follow up Appt 1x/week [facility] Work Phone: Start: 08-13-2016 End: 08-13-2016 Follow up Appt 2x/week Follow up Appt 2x/week [facility] Work Phone: Start: 08-13-2016 End: 08-13-2016 Follow up Appt 2x/week Follow up Appt 2x/week [facility] Work Phone: Start: 08-09-2016 End: 08-09-2016 Follow up Appt 2x/week Follow up Appt 2x/week [facility] Work Phone: Start: 08-09-2016 End: 08-09-2016 Follow up Appt 2x/week Follow up Appt 2x/week [facility] Work Phone: Start: 08-07-2016 End: 08-07-2016 Follow up Appt 3x/week Follow up Appt 3x/week [facility] Work Phone: Start: 08-06-2016 End: 08-07-2016 Follow up Appt 3x/week Follow up Appt 3x/week [facility] Work Phone: Start: 08-06-2016 End: 08-06-2016 Follow up Appt 3x/week Follow up Appt 3x/week [facility] Work Phone: Start: 08-02-2016 End: 08-06-2016 Follow up Appt 3x/week Follow up Appt 3x/week [facility] Work Phone: Start: 08-02-2016 End: 08-06-2016 Follow up Appt 3x/week Follow up Appt 3x/week [facility] Work Phone: Start: 07-30-2016 End: 07-30-2016 Follow up Appt 3x/week Follow up Appt 3x/week [facility] Work Phone: Start: 07-30-2016 End: 07-30-2016 Follow up Appt 3x/week Follow up Appt 3x/week [facility] Work Phone: Start: 07-24-2016 End: 07-24-2016 Follow up Appt 3x/week Follow up Appt 3x/week [facility] Work Phone: Start: 07-24-2016 End: 07-24-2016 Follow up Appt 3x/week Follow up Appt 3x/week [facility] Work Phone: Start: 06-28-2016 End: 05-08-2016 *CBC with Differential *CBC with Differential [facility] Work Phone: Start: 06-28-2016 End: 05-08-2016 *CMP Complete Metabolic Panel *CMP Complete Metabolic Panel [facility] Work Phone: Start: 06-28-2016 End: 05-08-2016 LDH enzyme act/vol *LDH -LDH (Lactate Dehydrogenase) [facility] Work Phone: Start: 06-28-2016 End: 05-08-2016 Magnesium mass conc *Magnesium [facility] Work Phone: Start: 06-28-2016 End: 05-08-2016 Urate mass conc *Uric Acid Blood [facility] Work Phone: Start: 06-28-2016 End: 05-08-2016 *CBC with Differential *CBC with Differential [facility] Work Phone: Start: 06-28-2016 End: [...] stress test -Lexiscan Nuclear stress test -Lexiscan [facility] Work Phone: Start: 05-28-2016 End: 05-28-2016 Nuclear stress test -Lexiscan Nuclear stress test -Lexiscan [facility] Work Phone: Start: 04-06-2016 End: 04-05-2016 *Hepatic Function Panel *Hepatic Function Panel [facility] Work Phone: Start: 04-06-2016 End: 04-05-2016 Lipid 1996 panel *Lipid Profile CC PCP [facility] Work Phone: Start: 04-06-2016 End: 04-05-2016 T4 mass conc *T4 (Total) [facility] Work Phone: Start: 04-06-2016 End: 04-05-2016 Thyrotropin Qn *TSH [facility] Work Phone: Start: 04-06-2016 End: 04-05-2016 *Hepatic Function Panel *Hepatic Function Panel [facility] Work Phone: Start: 04-06-2016 End: 04-05-2016 Lipid panel [AGGREGATE] *Lipid Profile CC PCP [facility] Work Phone: Start: 04-06-2016 End: 04-05-2016 Thyroid stimulating hormone (TSH) *TSH [facility] Work Phone: Start: 04-06-2016 End: 04-05-2016 Thyroxine (T4) *T4 (Total) [facility] Work Phone: Start: 03-23-2016 End: 03-23-2016 RUTHANN BEAVERS [facility] Work Phone: Start: 03-23-2016 End: 03-23-2016 Follow Up Appt 6 months Follow Up Appt 6 months [facility] Work Phone: Start: 03-23-2016 End: 03-23-2016 Follow Up BP Check Follow Up BP Check [facility] Work Phone: Start: 03-23-2016 End: 03-23-2016 RUTHANN BEAVERS [facility] Work Phone: Start: 03-23-2016 End: 03-23-2016 Follow Up Appt 6 months Follow Up Appt 6 months [facility] Work Phone: Start: 03-23-2016 End: 03-23-2016 Follow Up BP Check Follow Up BP Check [facility] Work Phone: Start: 2015 RSV Immunization for Adults (1 - 1-dose 75+ series) RSV Immunization for Adults (1 - 1-dose 75+ series) [facility] Start: 1952 Depression Monitoring Depression Monitoring [facility] Start: 1940 Screening for osteoporosis Bone Density Scan [facility] Patient Education [facility] Work Phone: Patient referral [facility] Work Phone: Immunizations Immunization Date Immunization Notes Care Provider Patricia tee 09-24-2024 influenza virus vacc ine, unspecified formulation ИВАН LOPEZ DO [facility] 09-24-2024 zoster vaccine recombinant ИВАН LOPEZ DO [facility] 07-21-2024 SARS-CoV-2 (COVID-19 ) [id number] ИВАН LOPEZ DO [facility] Comment on above: Result Comment: 2023: [id number] 10-01-2023 tetanus toxoid, redu edita diphtheria toxoid, and acellular pertussis vaccine, adsorbed ИВАН LOPEZ DO [facility] 09-27-2023 zoster vaccine recombinant ИВАН LOPEZ DO [facility] 09-23-2023 influenza virus vacc ine, unspecified formulation ИВАН LOPEZ DO [facility] 09-18-2023 SARS-CoV-2 (COVID-19 ) [id number] ИВАН LOPEZ DO [facility] 08-23-2022 COVID-19, mRNA, LNP- S, bivalent booster, PF, 30 mcg/0.3 mL dose; Translations: [SocialTagg COVID-19 (12y+) Bivalent Booster Vaccine PF] ИВАН LOPEZ DO [facility] 08-23-2022 influenza, high dose seasonal, preservative-free ИВАН JESSICA DO [facility] 08-23-2022 SARSCoV2 mRNA(rljrpfckpej54a+)biv al vac; Translations: [Pfizer-BioNTech COVID-19 (12y+) Bivalent Booster Vaccine PF] ИВАН JESSICA DO [facility] 09-07-2021 COVID-19, mRNA, LNP- S, PF, 30 mcg/0.3 mL dose; Translations: [Pfizer-BioNTech COVID-19 Vaccine] ИВАН JESSICA DO [facility] 08-11-2021 influenza, high dose seasonal, preservative-free; Translations: [Fluad Quadrivalent PF ] ИВАН LOPEZ DO [facility] 01-31-2021 SARS-CoV-2 mRNA (tozinameran) vaccine ИВАН LOPEZ DO [facility] 01-10-2021 SARS-CoV-2 mRNA (tozinameran) vaccine ИВАН LOPEZ DO [facility] Comment on above: Result Comment: 2020: [id number] 09-09-2020 influenza, injectabl e, quadrivalent, preservative free; Translations: [Fluarix PF Quadrivalent ] ИВАН LOPEZ DO [facility] 09-03-2019 influenza, injectabl e, quadrivalent, preservative free; Translations: [Fluarix PF Quadrivalent ] ИВАН LOPEZ DO [facility] 08-11-2018 influenza virus vacc ine, unspecified formulation ИВАН LOPEZ DO [facility] 08-22-2017 Influenza virus vaccine [facility] 08-22-2017 influenza virus vacc ine, unspecified formulation ИВАН RICHARDSONLAY DO [facility] 08-14-2016 influenza virus vacc ine, unspecified formulation ИВАН JESSICA DO [facility] 07-19-2015 influenza virus vacc ine, unspecified formulation ИВАН RICHARDSONLAY DO [facility] 07-19-2015 pneumococcal conjuga te vaccine, 13 valent ИВАН JESSICA DO [facility] 09-09-2014 influenza virus vacc ine, unspecified formulation ИВАН LOPEZ DO [facility] 08-24-2013 influenza virus vacc ine, unspecified formulation ИВАН RICHARDSONLAY DO [facility] 08-25-2012 influenza virus vacc ine, unspecified formulation ИВАН RICHARDSONLAY DO [facility] 08-04-2012 zoster vaccine, live ИВАН JESSICA DO [facility] 08-03-2012 zoster vaccine, live ИВАН JESSICA DO [facility] 04-04-2008 tetanus and diphther ia toxoids, adsorbed, preservative free, for adult use (5 Lf of tetanus toxoid and 2 Lf of diphtheria toxoid) ИВАН ALEXANDRAY DO [facility] 04-03-2008 tetanus and diphther ia toxoids, adsorbed, preservative free, for adult use (5 Lf of tetanus toxoid and 2 Lf of diphtheria toxoid) ИВАН JESSICA DO [facility] 08-28-2006 pneumococcal polysaccharide vaccine, 23 valent ИВАН LOPEZ DO [facility] Payers Date Payer Category Payer Private Health Insurance [id number] 2025 Unknown 2024 Medicare HMO [employer] [place] [address] [id number] 2023 Self-pay [id number] 2015 Unknown [id number] 1940 Unknown [id number] ..840.1.493811.3.579. 2.627 1940 Unknown [id number] 12.20.830.1.455317.3.579. 2.627 1940 Unknown [id number] 2.16.840.1.625769.3.579. 2.627 1940 Unknown [id number] 2.16840.1.157974.3.579. 2.627 1940 Unknown [id number] 2.16840.1.034912.3.579. 2.627 1940 Unknown [id number] 2.16840.1.758630.3.579. 2.627 1940 Unknown [id number] 2.16840.1.962578.3.579. 2.627 1940 Unknown [id number] 2.840.1.925415.3.579. 2.627 1940 Unknown [id number] 2.840.1.775010.3.579. 2.627 1940 Unknown [id number] 2.840.1.011734.3.579. 2.627 1940 Unknown [id number] 2.840.1.329031.3.579. 2.627 1940 Unknown [id number] 2.840.1.285140.3.579. 2.627 1940 Unknown [id number] 2.16840.1.360930.3.579. 2.627 1940 Unknown [id number] 2.840.1.893369.3.579. 2.627 1940 Unknown [id number] 2.840.1.492220.3.579. 2.627 Medicare MEDICARE PART A B [id number] Unknown [id number] 2.16840.1.961856.3.579. 2.462 Unknown [id number] 2.16.840.1.039108.3.579. 2.462 Unknown [id number] 2.16.840.1.633623.3.579. 2.462 Unknown [id number] 2.16.840.1.958111.3.579. 2.462 Unknown [id number] 2.16.840.1.990986.3.579. 2.462 Unknown [id number] 2.16.840.1.201018.3.579. 2.462 Social History Date Type Detail Facility Start: 04-07-2021 End: 05-11-2025 Never smoked tobacco (finding) [facility] Start: 1940 Sex Assigned At Female [facility] Start: 11-29-2023 [facility] Start: 05-09-2018 None [facility] Start: 05-09-2018 With Family [facility] Start: 05-23-2018 Non-smoker [facility] Start: 1940 Sex assigned at Not on file [facility] Start: 09-28-2019 End: 06-04-2022 Sex Female (finding) [facility] Gender identity Not on file [facility] Sexual Orientation [facility] Medical Equipment Procedure Code Equipment Code Equipment [...] Level Of Cons ciousness Awake;Alert;Appropriate;Follow s Commands [facility] Work Phone: 09-24-2023 Mental Status Orientation Oriented x 4 [facility] Clinical Notes 01-13-2024 to 06-18-2025 Discharge [...] Locations *1: This test was performed at: [facility], [address] [place] [address], [facility] , [facility] 06-16-2025 Note . MICRO - Microbiology PROCEDURE: Shiga Toxins 1 and 2 [[id number]: [id number] ^1 *1] SOURCE: Stool BODY SITE: COLLECTED [...] Locations *1: This test was performed at: [address], [address]- , [facility] 06-16-2025 Note . MICRO - Microbiology PROCEDURE: [...] Locations *1: This test was performed at: [address], [address] , [facility] 06-15-2025 Note . MICRO - Microbiology PROCEDURE: [...] Locations *1: This test was performed at: [address], [address] [place] [address] 03-31-2025 Nurse Progress note patient tolerated prolia injection without signs or symptoms of a reaction Digitally Signed by Sara Keith RN on 03/31/2025 11:24 AM [facility] 10-09-2024 Note . MICRO - Microbiology [...] Locations *1: This test was performed at: [facility], [address] [place] [address], [place], [address]- , [place] [facility] 09-30-2024 Hospital Discharg e instructions Anthony Richey MD - 09/30/2024 2:12 PM EST Please return the emergency department if you develop chest pain shortness of breath nausea vomiting back pain or you pass out documented in this encounter [facility] 09-30-2024 Emergency department Note Emergency Department Encounter [facility] EMERGENCY DEPT Patient: Henry Degorot : 1940 Date of Evaluation: 09/30/2024 ED [...] for clarification.) Toi Miller MD Acute Care [facility] Toi Miller MD 09/30/24 1524 documented in this encounter [facility] 09-30-2024 Physician Emergency department Note Emergency Department Encounter [facility] EMERGENCY DEPT Patient: Henry Degroot : 1940 [...] [employer] Toi Miller MD 09/30/24 1524 [employer] Phone: 09-28-2024 Nurse Progress note patient tolerated prolia injection without signs or symptoms of a reaction Digitally Signed by Sara Keith RN on 09/28/2024 11:12 AM [facility] 01-13-2024 Note ORIGINAL EXAMINATION: BONE DENSITOMETRY [...] 01/13/2024 10:46:45 AM Ordering Provider: ИВАН LOPEZ [facility] Evaluation + Plan note Future Appointments Appointment Date:02/09/2022 10:30:00 AM Scheduled Provider:ИВАН LOPEZ DO Location:[facility] Appointment Type:PC OV Future Scheduled TestsBD Bone Density DEXA Axial Skeleton 10/23/21 [facility] Evaluation + Plan note Future Appointments Appointment Date:02/09/2022 10:30:00 AM Scheduled Provider:ИВАН LOPEZ DO Location[facility] Appointment Type:PC OV [facility] Evaluation + Plan note Future Appointments Appointment Date:02/26/2023 10:30:00 AM Scheduled Provider:ИВАН LOPEZ DO Location:[facility] Appointment Type:PC OV [facility] Evaluation + Plan note Future Appointments Appointment Date:02/26/2023 10:30:00 AM Scheduled Provider:ИВАН LOPEZ DO Location:[facility] Appointment Type:PC OV Future Scheduled TestsUrinalysis 11/27/22Urine Culture 11/27/22 [facility] Evaluation + Plan note Future Appointments Appointment Date:09/25/2023 09:00:00 AM Scheduled Provider:ИВАН LOPEZ DO Location:[facility]ment [facility] + Plan note Future Appointments Appointment Date:02/27/2024 09:30:00 AM Scheduled Provider:ИВАН LOPEZ DO Location:[facility] Appointment Type:PC Wellness [facility] Evaluation + Plan note Future Appointments Appointment Date:08/20/2024 11:00:00 AM Scheduled Provider:ИВАН LOPEZ DO Location:[facility] Appointment Type:PC OV Future Scheduled TestsMA Mammo Screening Left w/ Richard 02/27/24 [facility] Evaluation + Plan note Future Appointments Appointment Date:03/25/2024 11:30:00 AM Scheduled Provider: Location:[facility] Appointment Type:INF Injection - Prolia Appointment Date:08/20/2024 11:00:00 AM Scheduled Provider:ИВАН LOPEZ DO Location:[facility] Appointment Type:PC OV [facility] Evaluation + Plan note Future Appointments Appointment Date:08/20/2024 11:00:00 AM Scheduled Provider:ИВАН LOPEZ DO Location:[facility] Appointment Type:PC OV [facility] Evaluation + Plan note Future Appointments Appointment Date:02/19/2025 10:30:00 AM Scheduled Provider:ИВАН LOPEZ DO Location:[facility] Appointment Type:PC Wellness [facility] Enh[facility] Future Scheduled TestsThyroid Stimulating Hormone 02/05/25Complete Blood Count 02/05/25Lipid Profile 02/05/25Vitamin D Level 02/05/25Complete Metabolic Panel 02/05/25 [facility] Evaluation + Plan note Future Appointments Appointment Date:03/03/2026 09:30:00 AM Scheduled Provider:ИВАН LOPEZ DO Location[facility] Appointment Type:PC Wellness [facility] Future Scheduled TestsUrinalysis w/ C&S if Indicated 11/18/24Urine Culture 11/18/24Urine Culture 11/20/24 [facility] Evaluation note No assessment inform ation available [facility] Work Phone: Evaluation note Diagnosis Closed head injury, initial encounter- Primary Fall, initial encounter Vasovagal syncope Syncope and collapse [facility] Narr[facility] No data available for this section [facility] Hospital Discharge instructions No data available for this section [facility] Progress note No data available for this section [facility] Summary Purpose Family History No Family History Records Found Relationship Condition Age at Onset Recorded Date/T saniya father Coronary artery disease Unknown aunt Malignant neoplasm of breast Unknown sister Malignant neoplasm of uterus Unknown Advance Directives No Advanced Directives Records Found Advance Directive Response Recorded Date/ Time Advance Directives Yes May 02 1:35pm Living Will Yes November 29 11:11am Power of Emergency Medical Service Coordinator Yes November 29, 2023 11:11am Name of Medical Power of Emergency Medical Service Coordinator GEORGINA DEGROOT November 29, 2023 11:11am Healthcare Agents on File Name Relationship Healthcare Agent [facility] p [place] Morales Daughter Health Care Agent Chief Complaint and Reason for Visit Chief Complaint GEN ILLNESS Additional Source Comments INFORMATION SOURCE (unrecogn ized section and content) DATE CREATED AUTHOR 04/30/2018 [place] [employer] DATE CREATED AUTHOR AUTHOR'S ORGANIZ ATION 05/01/2018 [facility] [employer] Sys tem DATE CREATED AUTHOR AUTHOR'S ORGANIZ ATION 07/07/2020 [facility] DATE CREATED AUTHOR AUTHOR'S ORGANIZ ATION 03/27/2024 [facility] ([place]) DATE CREATED AUTHOR AUTHOR'S ORGANIZ ATION 10/03/2024 [facility] [employer] Sys tem [facility] DATE CREATED AUTHOR AUTHOR'S ORGANIZ ATION 08/28/2025 [facility] DATE CREATED AUTHOR AUTHOR'S ORGANIZ ATION 09/16/2025 [facility] Care Team (unrecognized sect ion and content) Team Status: Active Member Role Status Dates Dr. Raquel Dumont MD Family Provider Active Dr. Иван Lopez , Primary Care Provider Active Team Status: Inactive Member Role Status Dates Dr. Иван Lopez DO Primary Care Provider Active Dr. Thomas Mayen DO Emergency Provider Active Table Worker Packager Relationship Specialty Start Date End Date Иван Lopez DO 0 [facility] [place] [address] PCP - General Family Medicine 09/30/24 Care Team (unrecognized sect ion and content) Care Team Personnel Name: JOSE STOCKTON Member Role: Chiropractor Address: Address: [address] [place], [place] [address] Name: GRACIELA PEDROZA MD Position: [facility] Physician Member Role: Neurologist Address: Address: [address] [place] [place] [address]- Name: FRANCHESCA BERG MD Member Role: Oncologist Address: Address: [address] [place] [address]- Name: TOI COLMENARES MD Member Role: Staffing Manager Address: Address: [address] [place] [address]- Name: ИВАН LOPEZ DO Position: P4 Physician - Primary Care Member Role: Primary Care Physician Address: Address: [address] [place] [address]- Name: MATT RAMIREZ MD Member Role: Relief Pharmacist Address: Address: [address] [place] [address] [place] Name: MARGARET MORALES MD Member Role: Suction Drum Drier Operator Address: Address: [address] [address]- Name: MAGDY SYED Member Role: Janitorial Account Manager Address: Address: [address] [address]- Name: GROVER FLORES DPM Position: Physician Member Role: Stiff Straw Hat Washer Address: Address: [address] [facility], [address] [facility] [place] [address]- Care Team Related Persons Name: KATIE DEGROOT Name: ISABEL DEGROOT Care Team Personnel Name: JOSE STOCKTON Member Role: Chiropractor Address: Address: [address] [place] [address]- Name: GRACIELA PEDROZA MD Position: [facility] Physician Member Role: Neurologist Address: Address: [address] [facility] [place] [address]- Name: FRANCHESCA BERG MD Member Role: Oncologist Address: Address: [address] [place] [address]- Name: TOI COLMENARES MD Member Role: Staffing Manager Address: Address: [address] [place] [address]- Name: ИВАН LOPEZ DO Position: P4 Physician - Primary Care Member Role: Primary Care Physician Address: Address: [address] [place] [address]- [place] Name: MATT RAMIREZ MD Member Role: Relief Pharmacist Address: Address: [address] [facility] [place] [address] [place] Name: MARGARET MORALES MD Member Role: Suction Drum Drier Operator Address: Address: [address] [place] [address]- [place] Name: MAGDY SYED Member Role: Janitorial Account Manager Address: Address: [address] [facility] [address] [place] [address]- [place] Name: GROVER FLORES DPM Position: Physician Member Role: Stiff Straw Hat Washer Address: Address: [address] [facility], [address] [facility] [place] [address]- [place] Care Team Related Persons Name: KATIE DEGROOT Name: ISABEL DEGROOT Care Team Personnel Name: JOSE STOCKTON Member Role: Chiropractor Address: Address: [address] [place] [address]- [place] Name: GRACIELA PEDROZA MD Position: [facility] Physician Member Role: Neurologist Address: Address: [address] [facility] [place] [address]- [place] Name: FRANCHESCA BERG MD Member Role: Oncologist Address: Address: [address] [facility] [place] [address]- [place] Name: TOI COLMENARES MD Member Role: Staffing Manager Address: Address: [address] [facility] [place] [facility] [place] [address]- [place] Name: ИВАН LOPEZ DO Position: Physician - Primary Care Member Role: Primary Care Physician Address: Address: [address] [place] [address]- [place] Name: MATT RAMIREZ MD Member Role: Relief Pharmacist Address: Address: [address] [facility] [place] [address] [place] Name: MARGARET MORALES MD Member Role: Suction Drum Drier Operator Address: Address: [address] [facility] [address] [place] [address]- [place] Name: MAGDY SYED Member Role: Janitorial Account Manager Address: Address: [address] [facility] [address] [place] [address]- [place] Name: GROVER FLORES DPM Position: Physician Member Role: Stiff Straw Hat Washer Address: Address: [address] [facility], [address] [facility] [place] [address]- Care Team Related Persons Name: ZNAE KATIE O Name: ISABEL DEGROOT Goals (unrecognized [...] BE BASED ON THE PRIMARY CLINICAL RECORDS. [facility] [employer] provides no warranty or guarantee of the accuracy or completeness of information in this document.
[2025-09-22] VITALS (47 sets, daily range): BP systolic 82–150; BP diastolic 39–139; PULSE 105–155; RESP 16–24; TEMP 36.1–36.8; O2SAT 90–98; BMI 27.6; BMI 29.9
--- OUTSIDE RECORDS SUMMARY | 2025-09-22 00:36 | XMS RPT_ITS | CCD ---
Author Organization [facility] Care Team Providers Care Auto Claim Representative Name Role Phone Falguni Almendarez Unavailable Unavailable [...] Physician ИВАН LOPEZ DO Primary Care Physician [phone] LYNDSEY LOPEZ DOISTIN Primary Care Unavailable JESSICA DOLYNDSEYИВАН Attending Unavailable JESSICA DOLYNDSEYИВАН Attending Unavailable JESSICA DO ИВАН Primary Care Unavailable JESSICA DO ИВАН Primary Care Unavailable JESSICA DO ИВАН Attending Unavailable JESSICA DO, ИВАН Primary Care Unavailable JESSICA DO, ИВАН Attending Unavailable JESSICA DO, ИВАН Attending Unavailable JESSICA DO ИВАН Primary Care Unavailable JESSICA DO ИВАН Attending Unavailable LYNDSEY LOPEZ DOISTIN Primary [...] JESSICA DO, ИВАН Primary Care Unavailable ROCK MASTER [place] OR THEATRE MANAGER, LERROXANNE Attending Unavailabl e JESSICA DO, ИВАН Primary Care Unavailable ROCK MASTER [place] OR THEATRE MANAGER, LERICA Attending Unavailabl e JESSICA DO, ИВАН [...] Care Unavailable Jessica, Иван Referring Unavailable Jessica, Виан Primary Care Unavailable Jessica, Иавн Attending Unavailable Jessica, Иван Primary Care Unavailable MiriamNicci Attending Unavailable Allergies Allergy Classification Reported Allergen(s) Allergy Type Date of Onset Reaction(s) Facility (18 sources) Sulfonamides (Antibiotic); Translations: [sulfa drugs] Drug allergy Fluttering heart (finding), Asthenia (finding) [facility] (16 sources) Alendronate; Translations: [alendronate] Drug Allergy Intolerance, function (observable entity) [facility] [place] Medications Current Medications Medication Drug Class(es) Dates [...] 13 tab(s), 3 Refill(s), [facility]acy: [facility], 163, cm, 08/11/21 9:08:00 EDT, Height, [...] 180 tab(s), 3 Refill(s), [facility]: [facility] #[id number], 161, cm, 02/26/25 10:23:00 EDT, Height, 80.1, [...] 180 tab(s), 3 Refill(s), [facility]acy: [facility] #[id number], 161, cm, 02/27/24 9:43:00 EDT, Height, 78.9, kg, 02/27/24 9:43:00 EDT, Dosing Weight Start Date: 02/27/24 Status: Ordered Start: 02-26-2023 Eliquis 5 mg o ral tablet Dose : 5 mg = 1 tab(s), Oral, BID, # 180 tab(s), 3 Refill(s), [facility]acy: [facility] #[id number], 161, cm, 02/26/23 10:53:00 EDT, Height, 77.5, kg, 02/26/23 10:39:00 EDT, Dosing Weight Start Date: 02/26/23 Status: Ordered Start: 02-16-2016 End: 12-04-2019 Eliquis 5 mg oral tablet Dos e : 5 mg = 1 tab(s), Oral, BID, # 180 tab(s), 3 Refill(s), [facility]acy: [facility] #[id number], 161, cm, 02/26/23 10:53:00 EDT, Height, 77.5, [...] Refill(s) Start Date: 02/08/22 Status: Ordered Calcium Jfiy-O8-Rkaddmmre Liset (Coral Calcium) 133 mg calcium -133 unit-67 mg capsule (1 source) Start: 02-08-2022 take 1 capsule by mouth once daily Calcium Fazu-N0-Wzhvbjkid Liset (Coral Calcium) 133 mg calcium -133 unit-67 mg capsule Active 1 CAP PO DAILY February 07, 2022 11:00pm cephalexin 500 mg oral capsule (5 sources) Cephalosporin Antibacterial Start: 06-14-2025 End: 06-21-2025 cephalexin 500 mg oral capsule Dose : 500 mg = 1 cap(s), Oral, q8h, X 7 day(s), # 21 cap(s), 0 Refill(s), 06/21/25 12:06:00 PM EDT, Pharmacy: [facility]/pharmacy #[id number], 161, cm, 06/14/25 11:46:00 EDT, Height, [...] 0 Refill(s), 10/13/24 2:33:00 PM EST, [facility]acy: [facility] #[id number], 161, cm, 10/06/24 13:12:00 EST, Height, 79.1, kg, 10/06/24 12:59:00 EST, Dosing Weight Start Date: 10/06/24 Stop Date: 10/13/24 Status: Ordered Start: 08-24-2022 End: 08-31-2022 cephalexin 500 mg oral capsu le Dose : 500 mg = 1 cap(s), Oral, q12h, X 7 day(s), # 14 cap(s), 0 Refill(s), 08/31/22 12:22:00 EDT, Pharmacy: [facility] #[id number], 161, cm, 08/23/22 10:45:00 EDT, Height, 78 [...] neurology, # 60 cap(s), 3 Refill(s), Pharmacy: [facility] #[id number], Depression, 161.5, cm, 02/08/22 15:26:00 EDT, Height [...] tablet by mouth daily OMEGA-3 FATTY ACIDS [id number] Daylin Cespedespie CAM take 1 tablet by chandan th once daily FISH OIL 1000 MG CAPS One tablet by mouth daily OMEGA-3 FATTY ACIDS [id number] Daylin Sloan LPN Garlic preparation (4 sources) [...] th once daily TOPROL XL 25 MG [id number] One half tablet by mouth daily METOPROLOL SUCCINATE [id number] Augusto Carter MD Start: 10-15-2016 take 1 tablet by chandan th once daily TOPROL XL 25 MG [id number] One tablet by mouth daily METOPROLOL SUCCINATE [id number] Augusto Carter MD Start: 10-15-2016 take 1 tablet by chandan th once daily TOPROL XL 25 MG [id number] One half tablet by mouth daily METOPROLOL SUCCINATE [id number] Augusto Carter MD Start: 10-15-2016 take 1 tablet by chandan th once daily TOPROL XL 25 MG [id number]-MUF One tablet by mouth daily METOPROLOL SUCCINATE [id number] Augusto Carter MD Start: 03-19-2016 End: 10-15-2016 take 1 tablet by mouth once daily TOPROL XL 25 MG [id number]-[id number] One tablet by mouth daily METOPROLOL SUCCINATE [id number] Augusto Carter MD Start: 03-19-2016 End: 10-15-2016 take 1 tablet by mouth once daily TOPROL XL 25 MG [id number] One half tablet by mouth daily METOPROLOL SUCCINATE [id number] Augusto Carter MD Start: 03-19-2016 take 1 tablet by chandan th once daily TOPROL XL 25 MG [id number]-BCG One tablet by mouth daily METOPROLOL SUCCINATE [id number] Kaela Sam RN Start: 03-19-2016 take 1 tablet by chandan th once daily TOPROL XL 25 MG [id number]-LHQ One half tablet by mouth daily METOPROLOL SUCCINATE [id number] Augusto Carter MD Start: 03-19-2016 take 1 tablet by chandan th once daily TOPROL XL 25 MG SV07H-GNE One half tablet by mouth daily METOPROLOL SUCCINATE [id number] Augusto Carter MD Start: 03-19-2016 take 1 tablet by chandan th once daily TOPROL XL 25 MG [id number]-FUD One tablet by mouth daily METOPROLOL SUCCINATE [id number] Kaelahalley Sam RN Start: 03-19-2016 End: 10-15-2016 take 1 tablet by mouth once daily TOPROL XL 25 MG QQ23X-CVM One half tablet by mouth daily METOPROLOL SUCCINATE [id number] Augusto Carter MD Start: 03-08-2016 End: 07-10-2017 take 25 mg by mouth once daily Metoprolol Succinate Di scontinued 25 MG PO DAILY March 07, 2016 11:00pm July 10, 2017 9:22am [place] Q Plus (1 source) Start: 07-13-2019 take 2 tablets by mouth once daily [place] Q Plus Active 2 TABLET PO DAILY July 12, 2019 11:00pm pravastatin sodium 10 mg oral tablet (20 sources) HMG-CoA Reductase Inhibitor Start: 02-26-2025 pravastatin 10 mg oral tablet Dose : 10 mg = 1 tab(s), Oral, Every other day, # 90 tab(s), 3 Refill(s), Pharmacy: [facility] #[id number], Hypercholesterolem ia, 161, cm, 02/26/25 10:23:00 EDT, Height, kg, 02/26/25 10:10:00 EDT, Dosing Weight Start Date: 02/26/25 Status: Ordered Medication Dispense Status: Completed Quantity: 90.0 Unit: tab(s) Total Allowed Fills: 4 Fills Dispensed: 0 Indications: Pure hypercholesterolem ia, unspecified; Start: 02-27-2024 pravastatin 10 mg oral tablet Dose : 10 mg = 1 tab(s), Oral, Every other day, # 90 tab(s), 3 Refill(s), Pharmacy: [facility] #[id number], Hypercholesterolemia, 161, cm, 02/27/24 9:43:00 EDT, Height, kg, 02/27/24 9:43:00 EDT, Dosing Weight Start Date: 02/27/24 Status: Ordered Start: 01-12-2021 pravastatin 10 mg oral tablet Dose : 10 mg = 1 tab(s), Oral, Every other day, # 90 tab(s), 3 Refill(s), [facility][id number], Hypercholesterolemia, 161, cm, 02/26/23 10:53:00 EDT, Height, [...] MG TAB S on hold PRAVASTATIN SODIUM [id number] Kaela Sam RN Start: 02-16-2016 End: 10-20-2018 [...] 0 Refill(s), 06/26/25 10:34:00 AM EDT, Pharmacy: [facility]/pharmacy #[id number], Diarrhea, 161, cm, 06/14/25 11:46:00 EDT, Height, 76, kg, 06/14/25 11:46:00 EDT, Dosing Weight Start Date: 06/16/25 Stop Date: 06/26/25 Status: Ordered Medication Dispense Status: Completed Quantity: 40.0 Unit: cap(s) Total Allowed Fills: 1 Fills Dispensed: 0 Indications: Diarrhea, unspecified; Vit C,W-Kc-Nthcd-Lutei n-Zeaxan (1 source) Start: 05-07-2018 Vit C,A-Vk-Seifw-Lutein -Zeaxan Active 1 EACH PO TWICE A [...] One tablet by mouth daily AMIODARONE HCL [id number] Augusto Carter MD Start: 02-16-2016 End: 03-08-2016 [...] 15, 2016 11:00pm March 08, 2016 8:11am Xkf18-Pmr E 100 mg-10 Unit Sfg (1 source) Start: 07-10-2017 End: 02-22-2018 take 1 tablet by mouth every other day Zcj31-Sue E 100 mg-10 Unit Sfg Discontinued 1 [...] Ordered docusate sodium 50 mg / sennosides, shelter 8.6 mg oral tablet (20 sources) Start: 03-19-2016 End: 03-23-2016 take 2 tablets by mouth once daily as needed, then take 8.6-50 tablets by mouth as needed SENOKOT S 8.6-50 MG TABS 2 tablets by mouth daily, as needed SENNOSIDES-DOCUSATE SODIUM [id number] Augusto Carter MD Start: 03-19-2016 End: 03-23-2016 take 2 tablets by mouth once daily as needed, then take 8.6-50 tablets by mouth as needed SENOKOT S 8.6-50 MG TABS 2 tablets by mouth daily, as needed SENNOSIDES-DOCUSATE SODIUM [id number] Augusto Carter MD Start: 03-19-2016 take 2 tablets by [facility] once daily as needed, then take 8.6-50 tablets by mouth as needed SENOKOT S 8.6-50 MG TABS 2 tablets by mouth daily, as needed SENNOSIDES-DOCUSATE SODIUM [id number] Kaela Sam RN Start: 03-19-2016 take 2 tablets by mo uth once daily as needed, then take 8.6-50 tablets by mouth as needed SENOKOT S 8.6-50 MG TABS 2 tablets by mouth daily, as needed SENNOSIDES-DOCUSATE SODIUM [id number] Kaela Sam RN Start: 03-19-2016 End: 03-23-2016 take 2 tablets by mouth once daily as needed, then take 8.6-50 tablets by mouth as needed SENOKOT S 8.6-50 MG TABS 2 tablets by mouth daily, as needed SENNOSIDES-DOCUSATE SODIUM [id number] Augusto Carter MD Start: 03-08-2016 End: 02-22-2018 [...] /ACT SUSP Take as directed FLUTICASONE PROPIONATE [id number] Kaela Sam RN Start: 03-19-2016 FLONASE 50 MCG /ACT SUSP Take as directed FLUTICASONE PROPIONATE [id number] Kaela Sam RN Start: 03-08-2016 End: 02-24-2018 [...] One tablet by mouth daily LUTEIN TABS 35135685939 Augusto Carter MD Start: 03-23-2016 End: 08-05-2017 take 1 tablet by mouth once daily LUTEIN TABS One tablet by mouth daily LUTEIN TABS [id number] Augusto Carter MD Start: 03-23-2016 End: 08-05-2017 take 1 tablet by mouth once daily LUTEIN TABS One tablet by mouth daily LUTEIN TABS 58562404532 Augusto Carter MD Start: 03-23-2016 take 1 tablet by chandan th once daily LUTEIN TABS One tablet by mouth daily LUTEIN TABS 26666278895 Augusto Carter MD meclizine hydrochloride 12.5 mg [...] daily as needed for dizziness MECLIZINE HCL [id number] Augusto Carter MD [facility] NATURAL PRODUCTS (5 sources) take 2 tablets by mouth once daily JOINT SUPPORT COMPLEX CAPS Two tablets by mouth daily [facility] [employer] [id number] Jaylyn Vázquez Alam MISC NATURAL PRODUCTS (8 sources) take 2 tablets by mouth once daily JOINT SUPPORT COMPLEX CAPS Two tablets by mouth daily [facility] [employer] [id number] Jaylyn Vázquez Alaciro MULTIPLE VITAMIN (5 sources) take 1 tablet by mouth once daily MULTIVITAMINS TABS One tablet by mouth daily MULTIPLE VITAMIN 99339327628 Daylin Sloan LPN MULTIPLE VITAMIN (8 sources) take 1 tablet by mouth once daily MULTIVITAMINS TABS One tablet by mouth daily MULTIPLE VITAMIN 74821363622 Daylin Sloan LPN Multivitamin preparation (1 source) Start: 6 End: 8 Multivitamin Discontinued 1 EACH PO DAILY February 15, 2016 11:00pm February 24, 2018 10:11am nystatin [id number] unt/ml topical cream (6 sources) Polyene Antifungal Start: 4 End: 5 nystatin 100,000 units/g topical cream Apply 1 ruby, Topical, BID, PRN Rash, Apply to the affected area twice daily until healing complete., # 30 gram(s), 1 Refill(s), [id number], Cream, 161, cm, 10/06/24 13:12:00 EST, Height, 79.1, kg, 10/06/24 12:59:00 EST, Dosing Weight Start Date: 10/06/24 Stop Date: 12/05/24 Status: Ordered Medication Dispense Status: Completed Quantity: 30.0 Unit: g Total Allowed Fills: 2 Fills Dispensed: 0 OMEGA-3 FATTY ACIDS (7 sources) take 1 tablet by mouth once daily FISH OIL 1000 MG CAPS One tablet by mouth daily OMEGA-3 FATTY ACIDS 10323643967 Daylin Sloan PHLEBOTOMY COORDINATOR [place]ryowen-3 Fatty Acids-Fish Oil (1 source) Start: 7 End: 1 take 1 tablet by mouth once daily [place]ryowen-3 Fatty Acids-Fish Oil Discontinued 1 TABLET PO [...] 02-08-2022 Chronic Other aftercare (7 sources) Other residential (current) drug therapy; Translations: [longterm (current) use of anticoagulants] Onset: 04-06-2016 04-06-2016 [...] (8 sources) Long-term drug therapy; Translations: [Other medical terminologist (current) drug therapy] Onset: 04-06-2016 04-06-2016 Unclassified [...] sites No growth in 5 days. Normal [facility] Comment on above: Performed By: #### M 100.636, M200.1000 #### [facility] [place], [address] Culture, Blood (WB)on 2024 CUB Blood cultures x2, f rom two different sites Aerobic Bottle has Gram Positive Cocci in Clusters. Culture, Blood (WB) RESULTS CALLED TO RUPA Ruiz AND SENT TO NURSES STATION ED-RT03 09/06/25 1389 Brenda Lang. REPORT READ BACK. STAPHYLOCOCCUS AUREUS [...] <=10 S Vancomycin Islt BENEDICT 2 S [facility] Comment on above: Performed By: #### M 100.636, M200.1000 #### [facility] Laboratory [address] [place], [place], [address] BC GPC IDon 09-06-2025 BC GPC ID Copy of report sent to Infection Control Printer [id number] 09/06/25 [id number] LEONARDO. Microorganism Spec Cult RESULTS CALLED TO AUTOMOBILE ASSEMBLY SUPERVISORRUPA DEGROOT AND SENT TO ED PRT-03 09/06/25 5368 Brenda Lang. REPORT READ BACK. Microorganism Spec [...] final has been changed. 09/08/25 1259 by [facility] Comment on above: Performed By: #### M 100.636, M200.1000 #### [facility] Laboratory [address] [place], [place], [id number] 12 Lead EKGon 09-05-2025 12 Lead EKG [facility] Cardiovascular Services [address] [place] [address] 12 Lead EKG 09/05/25 1116 MR#: [id number] Acct: [id number] Name: HENRY DEGROOT Rep #: [id number] : 1940 85 From: Jhon Guan MD [...] Borderline ECG Confirmed by Jhon Guan ([id number]), field map editor CAS CONTRERAS ([id number]) on 09/06/2025 1:13:27 PM Referred By: Confirmed By: Jhon Guan 09/06/25 1313 Date Jhon Guan MD CC: Dr. Nicci Pineda MD; Dr. Иван Lopez, Signed [facility] Brain/Head without Contrasto n 09-05-2025 Brain/Head without Contrast [facility] Imaging Services [address] [place] [address] Brain/Head without Contrast MR#: [id number] Acct: [id number] Name: HENRY DEGROOT Rep #: [id number] : 1940 F 85 From: Ricardo Jessica MD PCP: Dr. Иван Lopez DO Status: REG ER Study: Brain/Head without Contrast Date of Exam: 12/29 Exam# [id number] Ordering Dr: Nicci Pineda MD EXAM: BRAIN/HEAD [...] an acute, large territorial infarct. There are [id number], diffuse, symmetrical, periventricular and subcortical white matter [...] should additional information be required. Reading Location: [facility] CC: Dr. Nicci Pineda MD; Dr. Иван Lopez DO Audiometrist: Signed Normal [facility] CBC W/Diff, Automatedon 11-0 Absolute Lymph 0.62 X10 3/uL Low 0.83-4.51 [facility] Comment on above: Performed By: #### L 503.6005, L100.0100, L500.4050 #### [facility] Laboratory [address] [place], [address] Absolute Neut 7.0 X10 3/uL Normal 2.0-7.7 [facility] Comment on above: Performed By: #### L 503.6005, L100.0100, L500.4050 #### [facility] Laboratory [address] [place], [address] Basophils/100 WBC (Bld) 0.2 % Normal 0-1 [facility] Comment on above: Performed By: #### L 503.6005, L100.0100, L500.4050 #### [facility] Laboratory [address] [place], [address] Eosinophils/100 WBC (Bld) 0.0 % Normal 0-5 [facility] Comment on above: Performed By: #### L 503.6005, L100.0100, L500.4050 #### [facility] Laboratory [address] [place], [address] Erythrocyte distribution width (RBC) [Ratio] 12.3 % Normal 11.6-14.6 [facility] Comment on above: Performed By: #### L 503.6005, L100.0100, L500.4050 #### [facility] Laboratory [address] [place], [address] Hematocrit (Bld) [Volume fraction] 36.7 % Low 37-47 [facility] Comment on above: Performed By: #### L 503.6005, L100.0100, L500.4050 #### [facility] Laboratory [address] [place], [address] Hemoglobin (Bld) [Mass/Vol] 12.3 g/dL Normal 12.0-15.0 [facility] Comment on above: Performed By: #### L 503.6005, L100.0100, L500.4050 #### [facility] Laboratory [address] [place], [address] IG% 0.500 Normal 0.0-0.9 [facility] Comment on above: Result Comment: IG% - Immature Granulocytes (promyelocytes, myelocytes and metamyelocytes) > 1% indicates that a LEFT SHIFT is Present. Performed By: #### L 503.6005, L100.0100, L500.4050 #### [facility] Laboratory [address] [place], [address] Lymphocytes/100 WBC (Bld) 7.7 % Low 19-41 [facility] Comment on above: Performed By: #### L 503.6005, L100.0100, L500.4050 #### [facility] Laboratory [address] [place], [address] MCH (RBC) [Entitic mass] 32.0 pg Normal 27.0-32.0 [facility] Comment on above: Performed By: #### L 503.6005, L100.0100, L500.4050 #### [facility] Laboratory [address] [place], [address] MCHC (RBC) [Mass/Vol] 33.5 g/dL Normal 32-36 [facility] Comment on above: Performed By: #### L 503.6005, L100.0100, L500.4050 #### [facility] Laboratory [address] [place], [address] MCV (RBC) [Entitic vol] 95.6 fL Normal 81-99 [facility] Comment on above: Performed By: #### L 503.6005, L100.0100, L500.4050 #### [facility] Laboratory [address] [place], [address] Monocytes/100 WBC (Bld) 4.7 % Normal 0-10 [facility] Comment on above: Performed By: #### L 503.6005, L100.0100, L500.4050 #### [facility] Laboratory [address] [place], [address] Neutrophils/100 WBC (Bld) 86.9 % High 47-70 [facility] Comment on above: Performed By: #### L 503.6005, L100.0100, L500.4050 #### [facility] Laboratory [address] [place], [address] Nucleated RBC (Bld) [#/Vol] 0 10*3/uL Normal 0-5 [facility] Comment on above: Performed By: #### L 503.6005, L100.0100, L500.4050 #### [facility] Laboratory [address] [place], [address] Platelet mean volume (Bld) [Entitic vol] 11.0 fL Normal 6.2-12.0 [facility] Comment on above: Performed By: #### L 503.6005, L100.0100, L500.4050 #### [facility] Laboratory [address] [place], [address] Platelets (Bld) [#/Vol] 240 10*3/uL Normal 150-450 [facility] Comment on above: Performed By: #### L 503.6005, L100.0100, L500.4050 #### [facility] Laboratory [address] [place], [address] RBC (Bld) [#/Vol] 3.84 10*6/uL Low 4.2-5.[address] [facility] Comment on above: Performed By: #### L 503.6005, L100.0100, L500.4050 #### [facility] Laboratory [address] [place], [address] RDW SD 42.6 fl Normal 35.1-43.9 [facility] Comment on above: Performed By: #### L 503.6005, L100.0100, L500.4050 #### [facility] Laboratory [address] [place], [address] WBC (Bld) [#/Vol] 8.0 10*3/uL Normal 4.4-11.0 [facility] Comment on above: Performed By: #### L 503.6005, L100.0100, L500.4050 #### [facility] Laboratory [address] [place], [place], [address] CT Chest, Abd, Pel w/Contras ton 09-05-2025 CT Chest, Abd, Pel w/Contrast [facility] Imaging Services [address] [place] [address] CT Chest, Abd, Pel w/Contrast MR#: [id number] Acct: [id number] Name: HENRY DEGROOT Rep #: [id number] : 1940 F 85 From: Shilo Reed DO PCP: Dr. Иван Lopez DO Status: [facility] ER Study: CT Chest, Abd, Pel w/Contrast Date of Exam: Exam# [id number] Ordering Dr: Nicci Pineda MD PROCEDURE: CT [...] Chronic left rib fractures. Reading Location: [facility] CC: Dr. Nicci Pineda MD; Dr. Иван Lopez DO Audiometrist: Signed Normal [facility] Comprehensive Metabolic Prof ilon 09-05-2025 Albumin [Mass/Vol] 3.1 g/dL Low 3.4-4.8 [facility] Comment on above: Performed By: #### L 503.6005, L100.0100, L500.4050 #### [facility] Laboratory [address] [place], [place], [id number] Albumin/Globulin [Mass ratio] 1.0 {ratio} Normal 0.9-2.4 [facility] Comment on above: Performed By: #### L 503.6005, L100.0100, L500.4050 #### [facility] Laboratory [address] [place], [address] ALK PHOS 50 U/L Normal 35-104 [facility] Comment on above: Performed By: #### L 503.6005, L100.0100, L500.4050 #### [facility] Laboratory [address] [place], [address] ALT [Catalytic activity/Vol] 14 U/L Normal <=34 [facility] Comment on above: Performed By: #### L 503.6005, L100.0100, L500.4050 #### [facility] Laboratory [address] [place], [address] AST [Catalytic activity/Vol] 21 U/L Normal <=31 [facility] Comment on above: Performed By: #### L 503.6005, L100.0100, L500.4050 #### [facility] Laboratory [address] [place], [address] Bilirubin [Mass/Vol] 0.74 mg/dL Normal 0.00-1.30 [facility] Comment on above: Performed By: #### L 503.6005, L100.0100, L500.4050 #### [facility] Laboratory [address] [place], [address] BUN/CRE 20.4 RATIO High 10-20 [facility] Comment on above: Performed By: #### L 503.6005, L100.0100, L500.4050 #### [facility] Laboratory [address] [place], [address] Calcium [Mass/Vol] 9.0 mg/dL Normal 7.6-11.0 [facility] Comment on above: Performed By: #### L 503.6005, L100.0100, L500.4050 #### [facility] Laboratory [address] [place], [address] Chloride [Moles/Vol] 101 mmol/L Normal 98-108 [facility] Comment on above: Performed By: #### L 503.6005, L100.0100, L500.4050 #### [facility] Laboratory [address] [place], [address] CO2 [Moles/Vol] 26.6 mmol/L Normal 21.0-32.0 [facility] Comment on above: Performed By: #### L 503.6005, L100.0100, L500.4050 #### [facility] Laboratory [address] [place], [address] Creatinine [Mass/Vol] 0.95 mg/dL Normal 0.70-1.20 [facility] Comment on above: Performed By: #### L 503.6005, L100.0100, L500.4050 #### [facility] Laboratory [address] [place], [address] ECRCL 42.48 ml/min Low 50-250 [facility] Comment on above: Performed By: #### L 503.6005, L100.0100, L500.4050 #### [facility] [address] [place], [address] GAP 9 Normal 5-15 [facility] Comment on above: Performed By: #### L 503.6005, L100.0100, L500.4050 #### [facility] [address] [place], [address] GFR/1.73 sq M.predicted among non-blacks MDRD (S/P/Bld) [Vol rate/Area] 59 mL/min/{1.73_m2} Low >60 [facility] Comment on above: Result Comment: mL/m in/1.73m2 CKD-EPI Creatinine Equation (2020) Performed By: #### L 503.6005, L100.0100, L500.4050 #### [facility] [address] [place], [address] Globulin (S) [Mass/Vol] 3.0 g/dL Normal 2.2-4.2 [facility] Comment on above: Performed By: #### L 503.6005, L100.0100, L500.4050 #### [facility] [address] [place], [address] Glucose [Mass/Vol] 136 mg/dL High 70-99 [facility] Comment on above: Performed By: #### L 503.6005, L100.0100, L500.4050 #### [facility] [address] [place], [address] Potassium [Moles/Vol] 3.8 mmol/L Normal 3.3-5.1 [facility] Comment on above: Performed By: #### L 503.6005, L100.0100, L500.4050 #### [facility] [address] [place], [address] Sodium [Moles/Vol] 137 mmol/L Normal 133-145 [facility] Comment on above: Performed By: #### L 503.6005, L100.0100, L500.4050 #### [facility] [address] [place], [address] T PROT 6.2 g/dL Normal 5.9-8.4 [facility] Comment on above: Performed By: #### L 503.6005, L100.0100, L500.4050 #### [facility] [address] [place], [address] Urea nitrogen [Mass/Vol] 19 mg/dL Normal 4-19 [facility] Comment on above: Performed By: #### L 503.6005, L100.0100, L500.4050 #### [facility] [address] [place], [address] Emergency Department Summary on 09-05-2025 Emergency Department Summary [facility] Medical Records Department [address] [place] [address] Emergency Department Summary 09/05/25 MR#: [id number] Acct: [id number] Name: HENRY DEGROOT Rep #: [id number] : 1940 85 From: Nicci Pineda MD [...] She has been able to walk since. [facility] Medical History Atrial fibrillation Seizures [...] vitamin 05/07/18 U nknown History mg-copper 1 [id number] capsule apixaban 5 mg tablet 5 mg [...] denosumab 60 mg/mL subcutaneous 60 mg subcut [id number] Osteoporosis 05/02/23 Unknown History syringe (Prolia) levetiracetam [...] (PF) 15 mg/0.1 mL 15 mg intravitreal [id number] Eyes 1 11/21/23 Unknown History intravitreal solution [...] Never smoker (more content not included)... Normal [facility] Knee 1 or 2 Viewson 09-05-20 Knee 1 or 2 Views [facility] Imaging Services [address] [place] [address] Knee 1 or 2 Views MR#: [id number] Acct: [id number] Name: HENRY DEGROOT Rep #: [id number] : 1940 F 85 From: Juan Alberto Hdz MD PCP: Dr. Иван Lopez DO Status: REG ER Study: Knee 1 or 2 Views Date of Exam: 09/05/25 Exam# [id number] Ordering Dr: Nicci Pineda MD EXAM: XR Right Knee, 1 or 2 Views CLINICAL INDICATION: PAIN, FALL, BRUISING TECHNIQUE: Frontal and/or lateral views of the right knee. COMPARISON: No relevant prior studies available. FINDINGS: BONES/JOINTS: Unremarkable. No acute fracture. No dislocation. SOFT TISSUES: Unremarkable. RAD/Knee 1 or 2 Views IMPRESSION: No acute fracture. Reading Location: [facility] CC: Dr. Nicci Pineda MD; Dr. Иван Lopez DO Audiometrist: Signed Normal [facility] L501.4021on 09-05-2025 Trop T High Sen 18 ng/L High <=14 [facility] Comment on above: Performed By: #### M 100.636, M200.1000 #### [facility] Laboratory [address] [place], [address] Lactic Acidon 09-05-2025 Lactate [Moles/Vol] 1.4 mmol/L Normal 0.0-2.[address] [facility] Comment on above: Order Comment: Y Performed By: #### L 503.6005, L100.0100, L500.4050 #### [facility] [address] [place], [address] M100.678on 09-05-2025 M100.678 Pending SARS-CoV-2 (COVID 19) Negative INFLUENZA A Negative INFLUENZA B Negative RSV PCR Negative Normal [facility] Comment on above: Performed By: #### M 100.636, M200.1000 #### [facility] Laboratory [address] [place], [address] Spine Cervical without Contr ason 09-05-2025 Spine Cervical without Contras [facility] Imaging Services [address] [place] [address] Spine Cervical without Contras MR#: [id number] Acct: [id number] Name: HENRY DEGROOT Wendy Rep #: [id number] : 1940 F 85 From: Ricardo Jessica MD PCP: Dr. Иван Lopez DO Status: REG ER Study: Spine Cervical without Contras Date of Exam: 11/05/24 Exam# [id number] Ordering Dr: Nicci Pineda MD PROCEDURE: SPINE [...] separately dictated on CT chest. [facility]: Dr. Nicci Pineda MD; Dr. Иван Lopez DO Audiometrist: Signed Normal [facility] Troponin T HS 2 HRon 025 Trop T High Sen 17 ng/L High <=14 [facility] Comment on above: Performed By: #### L 499.0042 #### [facility] [address] [place], [address] Troponin T HS 4 HRon 025 Trop T High Sen Normal <=14 [facility] Comment on above: Result Comment: Canc elled via OM: Ordered Performed By: #### M 100.636, M200.1000 #### [facility] [address] [place], [address] Urinalysis, Completeon 09-05 EPI,SQUAMOUS 0-5 SEEN Normal 5-10 [facility] Comment on above: Order Comment: EFE TER SPECIMEN Performed By: #### L 400.0001, M100.678 ####[facility] [address] [place], [address] WBC 5-10 SEEN Normal 0-5 [facility] Comment on above: Order Comment: EFE TER SPECIMEN Performed By: #### L 400.0001, M100.678 ####[facility] [address] [place], [address] BACTERIA 0 SEEN Normal None Seen [facility] Comment on above: Order Comment: EFE TER SPECIMEN Performed By: #### L 400.0001, M100.678 ####[facility] [address] [place], [address] Mucus Ql (Urine sed) 0 SEEN Normal [facility] Comment on above: Order Comment: EFE TER SPECIMEN Performed By: #### L 400.0001, M100.678 ####[facility] [address] [place], [address] RBC 0 SEEN Normal 0-5 [facility] Comment on above: Order Comment: EFE TER SPECIMEN Performed By: #### L 400.0001, M100.678 ####[facility] [address] [place], [address] CDIFPCRon 06-15-2025 Clostridium difficile PCR Positive Abnormal Negative [facility] Comment on above: Performed By: #### C DIFPCR #### [address] [address] #### STGIPCR #### [place] [address] Clostridium difficile PCR Int See Below Normal [facility] Comment on above: Result Comment: Clinical Interpretation: [...] notified. Performed By: #### C DIFPCR #### [address] [address] #### STGIPCR #### [address] [address] LABORATORYOrdered By: Libby Cleary on 06-15-2025 Adenovirus [...] prudencio 1 Absence of Shiga toxin 2 [facility] Comment on above: Testing performed by immunochromatography. Clostridium difficile Toxin Confirmation Toxin A/B Confirmation Assay: Negative C. difficile toxin is either absent or below the detection limit of the test. [facility] Comment on above: The C.DIFF QUIK CHEC [...] present. Salmonella: Negative Shigella: Negative Campylobacter: Negative [facility] Comment on above: Requests for alterna tive pathogens including Yersinia, E. coli 0157, C. difficile toxin, Rotavirus, Giardia and parasites require specific requests. Kamryn 06-15-2025 Adenovirus F 40/41 Not detected Normal Not Detected [facility] Comment on above: Performed By: #### C DIFPCR #### [address] [address] #### STGIPCR #### [facility] [address] [place] [address] Astrovirus Not detected Normal Not Detected [facility] Comment on above: Performed By: #### C DIFPCR #### [place] [address] #### STGIPCR #### [facility] [address] [place] [address] Campy (jejuni/coli/ups) Not detected Normal Not Detected [facility] Comment on above: Performed By: #### C DIFPCR #### [address] [address] #### STGIPCR #### [facility] [address] [place] [address] Cryptosporidium Not detected Normal Not Detected [facility] Comment on above: Performed By: #### C DIFPCR #### [address] [address] #### STGIPCR #### [place] [id number] Cyclospora Not detected Normal Not Detected [facility] Comment on above: Performed By: #### C DIFPCR #### [address] [address] #### STGIPCR #### [facility] [address] [place] [address] E. coli (ETEC) Not detected Normal Not Detected [facility] Comment on above: Performed By: #### C DIFPCR #### [address] [address] #### STGIPCR #### [facility] [address] [place] [address] E. coli O157 Not Applicable Normal Not Detected [facility] Comment on above: Performed By: #### C DIFPCR #### [address] [address] #### STGIPCR #### [facility] [address] [place] [address] Entamoeba histolytica Not detected Normal Not Detected [facility] Comment on above: Performed By: #### C DIFPCR #### [address] [address] #### STGIPCR #### [facility] [address] [place] [address] Enteroaggregative E. coli (EAEC) Not detected Normal Not Detected [facility] Comment on above: Performed By: #### C DIFPCR #### [address] [address] #### STGIPCR #### [facility] [address] [place] [address] Enteropathogenic E. coli (EPEC) Detected Abnormal Not Detected [facility] Comment on above: Performed By: #### C DIFPCR #### [address] [address] #### STGIPCR #### [facility] [address] [place] [address] Giardia lamblia Not detected Normal Not Detected [facility] Comment on above: Performed By: #### C DIFPCR #### [address] [address] #### STGIPCR #### [facility] [address] [place] [address] Norovirus GI/GII Not detected Normal Not Detected [facility] Comment on above: Performed By: #### C DIFPCR #### [address] [address] #### STGIPCR #### [facility] [address] [place] [address] Plesiomonas shigelloides Not detected Normal Not Detected [facility] Comment on above: Performed By: #### C DIFPCR #### [address] [address] #### STGIPCR #### [facility] [address] [place] [address] Rotavirus A Not detected Normal Not Detected [facility] Comment on above: Performed By: #### C DIFPCR #### [place] [address] #### STGIPCR #### [facility] [address] [place] [address] Salmonella species, stool Not detected Normal Not Detected [facility] Comment on above: Performed By: #### C DIFPCR #### [place] [address] #### STGIPCR #### [place] [address] Sapovirus I,II,IV,V Not detected Normal Not Detected [facility] Comment on above: Performed By: #### C DIFPCR #### [place] [address] #### STGIPCR #### [facility] [address] [place] [address] Shig Tox E. coli (STEC) Not detected Normal Not Detected [facility] Comment on above: Performed By: #### C DIFPCR #### [address] [address] #### STGIPCR #### [facility] [address] [place], [place] [address] Shigella/Enteroinvasive E. coli (EIEC) Not detected Normal Not Detected [facility] Comment on above: Performed By: #### C DIFPCR #### [place] [address] #### STGIPCR #### [facility] [address] [place] [address] Stool GI Comment See Comment Normal [facility] Comment on above: Result Comment: Viru s, [...] primers. Performed By: #### C DIFPCR #### [place] [address] #### STGIPCR #### [place] [address] Vibrio cholerae Not detected Normal Not Detected [facility] Comment on above: Performed By: #### C DIFPCR #### [place] [address] #### STGIPCR #### [place] [address] Vibrio par/vul/chol Not detected Normal Not Detected [facility] Comment on above: Performed By: #### C DIFPCR #### [place] [address] #### STGIPCR #### [place] [address] Yersinia enterocolitica Not detected Normal Not Detected [facility] Comment on above: Performed By: #### C DIFPCR #### [place] [address] #### STGIPCR #### [place] [address] IMIPENEM:SUSC:PT:ISOLATE:ORD QN:MICon 06-14-2025 Imipenem BENEDICT [Susc] >100,000 cfu/ml Escherichia coli [facility] Imipenem BENEDICT [Susc]on 2024 Escherichia coli Escherichia coli [facility] LABORATORYOrdered By: Joann Lares on 02-26-2025 Albumin DL <= 20 mg/L (U) [Mass/Vol] 3.3 mg/L Invalid Interpretation Code AO ADM SS Albumin/Creatinine DL <= 20 mg/L (U) [Mass ratio] 3 mg/G Normal 0 - 30 mg/G AO Chemistry S Creatinine (U) [Mass/Vol] 101.6 mg/dL Normal 29.0 - 226.0 mg/dL AO ADM SS MALBRon 02-26-2025 U Creatinine 101.6 mg/dL Normal 29.0-226.0 [facility] Comment on above: Performed By: #### M ALBR #### [address] [address] U Microalb 3.3 mg/L Normal [facility] Comment on above: Performed By: #### M ALBR #### [address] [address] U Ratio Alb/Cre 3 mg/G Normal 0-30 [facility] Comment on above: Performed By: #### M ALBR #### [address] [address] .Auto Diffon 02-19-2025 Basophil, Absolute 0.0 10 3/mcL Normal 0.0-0.3 [facility] Comment on above: Performed By: #### C DIFPCR #### [address] [address] #### STGIPCR #### [address] [address] Basophils/100 WBC (Bld) 0.6 % Normal 0.0-2.5 [facility] Comment on above: Performed By: #### C DIFPCR #### [place] [address] #### STGIPCR #### [address] [address] Eosinophil, Absolute 0.2 10 3/mcL Normal 0.0-0.7 [facility] Comment on above: Performed By: #### C DIFPCR #### [place] [address] #### STGIPCR #### [address] [address] Eosinophils/100 WBC (Bld) 2.4 % Normal 0.0-6.0 [facility] Comment on above: Performed By: #### C DIFPCR #### [address] [address] #### STGIPCR #### [address] [address] Lymphocyte, Absolute 1.5 10 3/mcL Normal 0.9-4.3 [facility] Comment on above: Performed By: #### C DIFPCR #### [place] [address] #### STGIPCR #### [address] [address] Lymphocytes/100 WBC (Bld) 22.0 % Normal 20.0-40.0 [facility] Comment on above: Performed By: #### C DIFPCR #### [place] [address] #### STGIPCR #### [address] [address] Monocyte, Absolute 0.7 10 3/mcL Normal 0.1-1.4 [facility] Comment on above: Performed By: #### C DIFPCR #### [place] [id number] #### STGIPCR #### [address] [address] Monocytes/100 WBC (Bld) 10.3 % Normal 2.0-13.0 [facility] Comment on above: Performed By: #### C DIFPCR #### [place] [address] #### STGIPCR #### [address] [address] Neutrophils/100 WBC (Bld) 64.7 % Normal 50.0-75.0 [facility] Comment on above: Performed By: #### C DIFPCR #### [place] [id number] #### STGIPCR #### [address] [address] .GFRon 02-19-2025 Estimated Glomerular Filtration Rate 65 ml/min/1.73sqm Normal [facility] Comment on above: Result Comment: Stages of [...] results. Performed By: #### C DIFPCR #### [place] [id number] #### STGIPCR #### [place] [address] .NEUABSon 02-19-2025 Neutrophil, Absolute 4.4 10 3/mcL Normal 2.3-8.1 [facility] Comment on above: Performed By: #### C DIFPCR #### [place] [id number] #### STGIPCR #### [place] [address] CBCon 02-19-2025 Erythrocyte distribution width (RBC) [Ratio] 13.7 % Normal 11.5-15.5 [facility] Comment on above: Performed By: #### C BC, ANEU, VIDH, GFR, LIPID, CMP, TSH, ADIFF #### [address] [address] Hematocrit (Bld) [Volume fraction] 41.4 % Normal 34.0-46.0 [facility] Comment on above: Performed By: #### C BC, ANEU, VIDH, GFR, LIPID, CMP, TSH, ADIFF #### [address] [address] Hgb 14.0 G/dL Normal 12.0-16.0 [facility] Comment on above: Performed By: #### C BC, ANEU, VIDH, GFR, LIPID, CMP, TSH, ADIFF #### [address] [address] MCH (RBC) [Entitic mass] 32.3 pg Normal 27.0-33.0 [facility] Comment on above: Performed By: #### C BC, ANEU, VIDH, GFR, LIPID, CMP, TSH, ADIFF #### [address] [address] MCHC 33.7 G/dL Normal 32.0-36.0 [facility] Comment on above: Performed By: #### C BC, ANEU, VIDH, GFR, LIPID, CMP, TSH, ADIFF #### [address] [address] MCV (RBC) [Entitic vol] 95.7 fL Normal 80.0-99.0 [facility] Comment on above: Performed By: #### C BC, ANEU, VIDH, GFR, LIPID, CMP, TSH, ADIFF #### [address] [address] Platelet 244 10 3/mcL Normal 150-450 [facility] Comment on above: Performed By: #### C BC, ANEU, VIDH, GFR, LIPID, CMP, TSH, ADIFF #### [address] [address] Platelet mean volume (Bld) [Entitic vol] 10.0 fL Normal 6.6-10.5 [facility] Comment on above: Performed By: #### C BC, ANEU, VIDH, GFR, LIPID, CMP, TSH, ADIFF #### [address] [address] RBC 4.32 10 6/mcL Normal 4.10-5.30 [facility] Comment on above: Performed By: #### C BC, ANEU, VIDH, GFR, LIPID, CMP, TSH, ADIFF #### [address] [address] WBC 6.8 10 3/mcL Normal 4.5-10.8 [facility] Comment on above: Performed By: #### C BC, ANEU, VIDH, GFR, LIPID, CMP, TSH, ADIFF #### [address] [address] CMPon 02-19-2025 Albumin Level 2.9 G/dL Low 3.4-4.8 [facility] Comment on above: Performed By: #### C DIFPCR #### [place] [address] #### STGIPCR #### [address] [address] Albumin/Globulin [Mass ratio] 0.7 {ratio} Low 1.1-2.5 [facility] Comment on above: Performed By: #### C DIFPCR #### [place] [address] #### STGIPCR #### [place] [address] ALP [Catalytic activity/Vol] 63 U/L Normal 40-135 [facility] Comment on above: Performed By: #### C DIFPCR #### [place] [address] #### STGIPCR #### [address] [address] ALT [Catalytic activity/Vol] 14 U/L Normal 14-59 [facility] Comment on above: Performed By: #### C DIFPCR #### [place] [address] #### STGIPCR #### [address] [address] AST [Catalytic activity/Vol] 24 U/L Normal 10-40 [facility] Comment on above: Performed By: #### C DIFPCR #### [place] [address] #### STGIPCR #### [place] [id number] Bili Total 0.6 mg/dL Normal 0.2-1.0 [facility] Comment on above: Result Comment: Use of this assay is not recommended for patients undergoing treatment with eltrombopag due to the potential for falsely elevated results. Performed By: #### C DIFPCR #### [place] [address] #### STGIPCR #### [address] [address] BUN/Creatinine Ratio 25 ratio Normal 7-27 [facility] Comment on above: Performed By: #### C DIFPCR #### [place] [address] #### STGIPCR #### [address] [address] Calcium [Mass/Vol] 9.6 mg/dL Normal 8.4-10.2 [facility] Comment on above: Performed By: #### C DIFPCR #### [place] [address] #### STGIPCR #### [address] [address] Chloride [Moles/Vol] 104 mmol/L Normal 98-107 [facility] Comment on above: Performed By: #### C DIFPCR #### [place] [address] #### STGIPCR #### [address] [address] CO2 [Moles/Vol] 31 mmol/L Normal 23-31 [facility] Comment on above: Performed By: #### C DIFPCR #### [place] [address] #### STGIPCR #### [address] [address] Creatinine [Mass/Vol] 0.88 mg/dL Normal 0.55-1.02 [facility] Comment on above: Result Comment: Test ing performed on Siemens Dimension EXL analyzer using a modified kinetic Cecilio technique. Performed By: #### C DIFPCR #### [address] [address] #### STGIPCR #### [address] [address] Electrolyte Balance 3.0 mEq/L Low 4.0-15.0 [facility] Comment on above: Performed By: #### C DIFPCR #### [address] [address] #### STGIPCR #### [address] [address] Globulin 4.0 G/dL High 1.5-3.8 [facility] Comment on above: Performed By: #### C DIFPCR #### [place] [address] #### STGIPCR #### [address] [address] Glucose [Mass/Vol] 87 mg/dL Normal 83-110 [facility] Comment on above: Performed By: #### C DIFPCR #### [place] [address] #### STGIPCR #### [address] [address] Potassium [Moles/Vol] 4.3 mmol/L Normal 3.5-5.1 [facility] Comment on above: Performed By: #### C DIFPCR #### [address] [address] #### STGIPCR #### [address] [address] Sodium [Moles/Vol] 138 mmol/L Normal 136-145 [facility] Comment on above: Performed By: #### C DIFPCR #### [address] [address] #### STGIPCR #### [address] [address] Total Protein 6.9 G/dL Normal 6.4-8.2 [facility] Comment on above: Performed By: #### C DIFPCR #### [address] [address] #### STGIPCR #### [facility] [address] [place] [address] Urea nitrogen [Mass/Vol] 22 mg/dL High -18 [facility] Comment on above: Performed By: #### C DIFPCR #### [address] [address] #### STGIPCR #### [address] [address] LIPIDon 02-19-2025 Cholesterol [Mass/Vol] 170 mg/dL Normal 0-200 [facility] Comment on above: Result Comment: Chol esterol Reference Interval: Less than 200 Desirable 200-239 Borderline high risk 240 and above High risk Performed By: #### C DIFPCR #### [address] [address] #### STGIPCR #### [address] [address] Cholesterol in HDL [Mass/Vol] 72 mg/dL High 40-60 [facility] Comment on above: Performed By: #### C DIFPCR #### [address] [address] #### STGIPCR #### [address] [address] Cholesterol in LDL [Mass/Vol] 86 mg/dL Normal 0-130 [facility] Comment on above: Performed By: #### C DIFPCR #### [address] [address] #### STGIPCR #### [address] [address] Triglyceride [Mass/Vol] 61 mg/dL Normal 0-150 [facility] Comment on above: Result Comment: Trig lyceride Reference Interval: Less than 150 Normal 150-199 Borderline high risk 200-499 High risk 500 or higher Very high risk Performed By: #### C DIFPCR #### [place] [address] #### STGIPCR #### [address] [address] TSHon 02-19-2025 TSH Qn 1.63 m[IU]/L Normal 0.36-3.74 [facility] Comment on above: Performed By: #### C DIFPCR #### [address] [address] #### STGIPCR #### [address] [address] VIDHon 02-19-2025 Vit. D 25-Hydroxy 32.2 ng/mL Normal [facility] Comment on above: Result Comment: Inte rpretive Values Based on Total 25(OH) Vitamin D: Deficient <20 ng/mL Insufficient 20 - <30 ng/mL Sufficient 30-100 ng/mL Performed By: #### C DIFPCR #### [address] [address] #### STGIPCR #### [place] [id number] Cardiology Visit Reporton Cardiology Visit Report [facility] 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 Is patient in pain?: No Allergies No Known Allergies Allergy (Verified 09/21/24 09:30) Medications ???Medication ???Instructions ???Recorded ???Confirmed ???Type vit C 250 mg-vit E 90 mg-zinc 40 1 ea PO BID eye vitamin 05/07/18 0 12/23/24 History mg-copper 1 ob-fspgey-nynrft capsule apixaban 5 mg tablet 5 mg [...] denosumab 60 mg/mL subcutaneous 60 mg subcut [id number] Osteoporosis 05/02/23 09/21/24 History syringe (Prolia) metoprolol [...] (PF) 15 mg/0.1 mL 15 mg intravitreal [id number] Eyes 1 11/21/23 12/23/24 History intravitreal solution (Syfovre (PF)) Have you fallen in the past year?: No PFSH Medical History History of fall Wears hearing aid Wears [...] Obesity (BMI 30.0-34.9) Surgical History History of (more content not included)... Normal [facility] Urine Cultureon 11-20-2024 URC Escherichia coli [place] Count 80,000-100,000 Escherichia coli: REACTION Ampicillin Islt [...] TMP SMX Islt BENEDICT <=20 S Normal [facility] Comment on above: Performed By: #### M 100.636, M200.1000 #### [facility] [address] [place], [place], [id number] ([phone] Urinalysis, Routine (Dipstic k)on 11-18-2024 Clarity (U) Cloudy Normal Clear [facility] Comment on above: Order Comment: PT TO [place] URINARY TRACT HEALTH CRANBERRY AND MAX STRENGTH B4 PEEING (4)Urine, Random Performed By: #### M 100.636, M200.1000 #### [facility] [address] [place], [address] BILIRUBIN URINE 3 mg/dL Abnormal Negative [facility] Comment on above: Order Comment: PT TO [place] URINARY TRACT HEALTH CRANBERRY AND MAX STRENGTH B4 PEEING (4)Urine, Random Result Comment: COLO R OF URINE MAY AFFECT DIPSTICK RESULTS. Performed By: #### M 100.636, M200.1000 #### [facility] [address] [place], [address] Color (U) Red Normal Yellow [facility] Comment on above: Order Comment: PT TO [place] URINARY TRACT HEALTH CRANBERRY AND MAX STRENGTH B4 PEEING (4)Urine, Random Performed By: #### M 100.636, M200.1000 #### [facility] [address] [place], [address] GLUCOSE, UR Normal Normal Normal [facility] Comment on above: Order Comment: PT TO [place] URINARY TRACT HEALTH CRANBERRY AND MAX STRENGTH B4 PEEING (4)Urine, Random Performed By: #### M 100.636, M200.1000 #### [facility] [address] [place], [address] KETONE UR Negative Normal Negative [facility] Comment on above: Order Comment: PT TO [place] URINARY TRACT HEALTH CRANBERRY AND MAX STRENGTH B4 PEEING (4)Urine, Random Performed By: #### M 100.636, M200.1000 #### [facility] [address] [place], [address] LEUK ESTERASE Negative Normal Negative [facility] Comment on above: Order Comment: PT TO [place] URINARY TRACT HEALTH CRANBERRY AND MAX STRENGTH B4 PEEING (4)Urine, Random Performed By: #### M 100.636, M200.1000 #### [facility] [address] [place], [address] Nitrite Ql (U) Negative Normal Negative [facility] Comment on above: Order Comment: PT TO [place] URINARY TRACT HEALTH CRANBERRY AND MAX STRENGTH B4 PEEING (4)Urine, Random Performed By: #### M 100.636, M200.1000 #### [facility] [address] [place], [address] OCCULT BLOOD-UR 10 /ul Abnormal Negative [facility] Comment on above: Order Comment: PT TO [place] URINARY TRACT HEALTH CRANBERRY AND MAX STRENGTH B4 PEEING (4)Urine, Random Performed By: #### M 100.636, M200.1000 #### [facility] [address] [place], [address] pH UR 5.0 Normal 5.0 - 8.0 [facility] Comment on above: Order Comment: PT TO [place] URINARY TRACT HEALTH CRANBERRY AND MAX STRENGTH B4 PEEING (4)Urine, Random Performed By: #### M 100.636, M200.1000 #### [facility] [address] [place], [address] PROT DIPSTX 30 mg/dl Abnormal Negative [facility] Comment on above: Order Comment: PT TO [place] URINARY TRACT HEALTH CRANBERRY AND MAX STRENGTH B4 PEEING (4)Urine, Random Performed By: #### M 100.636, M200.1000 #### [facility] [address] [place], [address] SP.GR. DIPSTX 1.025 Normal 1.002-1.03 0 [facility] Comment on above: Order Comment: PT TO [place] URINARY TRACT HEALTH CRANBERRY AND MAX STRENGTH B4 PEEING (4)Urine, Random Performed By: #### M 100.636, M200.1000 #### [facility] [address] [place], [place], [id number] UROBILI Normal Normal Normal [facility] Comment on above: Order Comment: PT TO [place] URINARY TRACT HEALTH CRANBERRY AND MAX STRENGTH B4 PEEING (4)Urine, Random Performed By: #### M 100.636, M200.1000 #### [facility] [address] [place], [address] No Panel Informationon 10-07 Culture Urine No growth at 48 hours. [facility] .Auto Diffon 10-06-2024 Basophil, Absolute 0.0 10 3/mcL Normal 0.0-0.2 [facility] Comment on above: Performed By: #### C BC, PBNP, ADIFF, GFR, ANEU, CMP #### [address] [address] Basophils/100 WBC (Bld) 0.4 % Normal 0.0-2.5 [facility] Comment on above: Performed By: #### C BC, PBNP, ADIFF, GFR, ANEU, CMP #### [address] [address] Eosinophil, Absolute 0.1 10 3/mcL Normal 0.0-0.7 [facility] Comment on above: Performed By: #### C BC, PBNP, ADIFF, GFR, ANEU, CMP #### [address] [address] Eosinophils/100 WBC (Bld) 1.3 % Normal 0.0-7.0 [facility] Comment on above: Performed By: #### C BC, PBNP, ADIFF, GFR, ANEU, CMP #### [address] [address] Lymphocyte, Absolute 1.9 10 3/mcL Normal 0.9-4.3 [facility] Comment on above: Performed By: #### C BC, PBNP, ADIFF, GFR, ANEU, CMP #### [address] [address] Lymphocytes/100 WBC (Bld) 20.0 % Normal 20.0-40.0 [facility] Comment on above: Performed By: #### C BC, PBNP, ADIFF, GFR, ANEU, CMP #### [address] [address] Monocyte, Absolute 0.7 10 3/mcL Normal 0.1-1.4 [facility] Comment on above: Performed By: #### C BC, PBNP, ADIFF, GFR, ANEU, CMP #### [address] [address] Monocytes/100 WBC (Bld) 8.0 % Normal 2.0-13.0 [facility] Comment on above: Performed By: #### C BC, PBNP, ADIFF, GFR, ANEU, CMP #### [address] [address] Neutrophils/100 WBC (Bld) 70.3 % Normal 50.0-75.0 [facility] Comment on above: Performed By: #### C BC, PBNP, ADIFF, GFR, ANEU, CMP #### [address] [address] .GFRon 10-06-2024 GFR 74 ml/min/1.73sqm Normal [facility] Comment on above: Result Comment: GFR Population [...] BC, PBNP, ADIFF, GFR, ANEU, CMP #### [address] [address] GFR Non- 61 ml/min/1.73sqm Normal [facility] Comment on above: Result Comment: GFR Population [...] BC, PBNP, ADIFF, GFR, ANEU, CMP #### [address] [address] .NEUABSon 10-06-2024 Neutrophil, Absolute 6.6 10 3/mcL Normal 2.3-8.1 [facility] Comment on above: Performed By: #### C BC, PBNP, ADIFF, GFR, ANEU, CMP #### [address] [address] CBCon 10-06-2024 Erythrocyte distribution width (RBC) [Ratio] 13.3 % Normal 11.5-15.5 [facility] Comment on above: Performed By: #### C BC, PBNP, ADIFF, GFR, ANEU, CMP #### [place] [address] Hematocrit (Bld) [Volume fraction] 42.0 % Normal 34.0-46.0 [facility] Comment on above: Performed By: #### C BC, PBNP, ADIFF, GFR, ANEU, CMP #### [place] [address] Hgb 13.9 G/dL Normal 12.0-16.0 [facility] Comment on above: Performed By: #### C BC, PBNP, ADIFF, GFR, ANEU, CMP #### [address] [address] MCH (RBC) [Entitic mass] 32.1 pg Normal 27.0-33.0 [facility] Comment on above: Performed By: #### C BC, PBNP, ADIFF, GFR, ANEU, CMP #### [address] [address] MCHC 33.2 G/dL Normal 32.0-36.0 [facility] Comment on above: Performed By: #### C BC, PBNP, ADIFF, GFR, ANEU, CMP #### [address] [address] MCV (RBC) [Entitic vol] 96.7 fL Normal 80.0-99.0 [facility] Comment on above: Performed By: #### C BC, PBNP, ADIFF, GFR, ANEU, CMP #### [address] [address] Platelet 311 10 3/mcL Normal 150-450 [facility] Comment on above: Performed By: #### C BC, PBNP, ADIFF, GFR, ANEU, CMP #### [address] [address] Platelet mean volume (Bld) [Entitic vol] 9.4 fL Normal 6.6-10.5 [facility] Comment on above: Performed By: #### C BC, PBNP, ADIFF, GFR, ANEU, CMP #### [place] [address] RBC 4.35 10 6/mcL Normal 4.10-5.30 [facility] Comment on above: Performed By: #### C BC, PBNP, ADIFF, GFR, ANEU, CMP #### [place] [address] WBC 9.3 10 3/mcL Normal 4.5-10.8 [facility] Comment on above: Performed By: #### C BC, PBNP, ADIFF, GFR, ANEU, CMP #### [place] [address] CMPon 10-06-2024 Albumin Level 2.9 G/dL Low 3.4-4.8 [facility] Comment on above: Performed By: #### C BC, PBNP, ADIFF, GFR, ANEU, CMP #### [place] [address] Albumin/Globulin [Mass ratio] 0.8 {ratio} Low 1.1-2.5 [facility] Comment on above: Performed By: #### C BC, PBNP, ADIFF, GFR, ANEU, CMP #### [place] [address] ALP [Catalytic activity/Vol] 76 U/L Normal 40-135 [facility] Comment on above: Performed By: #### C BC, PBNP, ADIFF, GFR, ANEU, CMP #### [place] [address] ALT [Catalytic activity/Vol] 19 U/L Normal 14-59 [facility] Comment on above: Performed By: #### C BC, PBNP, ADIFF, GFR, ANEU, CMP #### [address] [address] AST [Catalytic activity/Vol] 16 U/L Normal 10-40 [facility] Comment on above: Performed By: #### C BC, PBNP, ADIFF, GFR, ANEU, CMP #### [address] [address] Bili Total 0.5 mg/dL Normal 0.2-1.0 [facility] Comment on above: Result Comment: Use of this assay is not recommended for patients undergoing treatment with eltrombopag due to the potential for falsely elevated results. Performed By: #### C BC, PBNP, ADIFF, GFR, ANEU, CMP #### [address] [address] BUN/Creatinine Ratio 25 ratio Normal 7-27 [facility] Comment on above: Performed By: #### C BC, PBNP, ADIFF, GFR, ANEU, CMP #### [address] [address] Calcium [Mass/Vol] 9.7 mg/dL Normal 8.4-10.2 [facility] Comment on above: Performed By: #### C BC, PBNP, ADIFF, GFR, ANEU, CMP #### [address] [address] Chloride [Moles/Vol] 100 mmol/L Normal 98-107 [facility] Comment on above: Performed By: #### C BC, PBNP, ADIFF, GFR, ANEU, CMP #### [address] [address] CO2 [Moles/Vol] 32 mmol/L High 23-31 [facility] Comment on above: Performed By: #### C BC, PBNP, ADIFF, GFR, ANEU, CMP #### [address] [address] Creatinine [Mass/Vol] 0.88 mg/dL Normal 0.55-1.02 [facility] Comment on above: Result Comment: Test ing performed on [employer] Dimension EXL analyzer using a modified kinetic Cecilio technique. Performed By: #### C BC, PBNP, ADIFF, GFR, ANEU, CMP #### [address] [address] Electrolyte Balance 5.0 mEq/L Normal 4.0-15.0 [facility] Comment on above: Performed By: #### C BC, PBNP, ADIFF, GFR, ANEU, CMP #### [address] [address] Globulin 3.8 G/dL Normal [facility] Comment on above: Performed By: #### C BC, PBNP, ADIFF, GFR, ANEU, CMP #### [address] [address] Glucose [Mass/Vol] 88 mg/dL Normal 83-110 [facility] Comment on above: Performed By: #### C BC, PBNP, ADIFF, GFR, ANEU, CMP #### [address] [address] Potassium [Moles/Vol] 4.7 mmol/L Normal 3.5-5.1 [facility] Comment on above: Performed By: #### C BC, PBNP, ADIFF, GFR, ANEU, CMP #### [address] [address] Sodium [Moles/Vol] 137 mmol/L Normal 136-145 [facility] Comment on above: Performed By: #### C BC, PBNP, ADIFF, GFR, ANEU, CMP #### [address] [address] Total Protein 6.7 G/dL Normal 6.4-8.2 [facility] Comment on above: Performed By: #### C BC, PBNP, ADIFF, GFR, ANEU, CMP #### [address] [address] Urea nitrogen [Mass/Vol] 22 mg/dL High 7-18 [facility] Comment on above: Performed By: #### C BC, PBNP, ADIFF, GFR, ANEU, CMP #### [place] [id number] [place], [place] [address] LABORATORYOrdered By: SYSTEM SYSTEM on 10-06-2024 Albumin [...] B (Bld) [Mass/Vol] 2431 pg/mL High 0-450 [facility] Comment on above: Result Comment: NT-p roBNP results of less than 300 pg/mL effectively rules out acute congestive heart failure with 99% negative predictive value. Performed By: #### C BC, PBNP, ADIFF, GFR, ANEU, CMP #### [facility] [address] [place], [place] [address] BASIC METABOLIC PANELon 11-2 Anion gap [Moles/Vol] 5 mmol/L Normal 3-13 [facility] Comment on above: Performed By: #### L [id number], [id number] #### [employer] Machine Operator: ESEQUIEL IRENE ([id number]) [facility] [address] [place] [address] Calcium [Mass/Vol] 8.4 mg/dL Normal 8.4-10.4 [facility] Comment on above: Performed By: #### L [id number], [id number] #### [employer] Operator: ESEQUIEL IRENE ([id number]) [facility] [address] [place] [address] [place] Chloride [Moles/Vol] 104 mmol/L Normal 98-107 [facility] Comment on above: Performed By: #### L [id number], [id number] #### [employer] Operator: ESEQUIEL IRENE ([id number]) [facility] [address] [place] [address] [place] CO2 [Moles/Vol] 28 mmol/L Normal 22-30 [facility] Comment on above: Performed By: #### L [id number], [id number] #### [employer] Operator: ESEQUIEL IRENE ([id number]) [facility] [address] [place] [address] [place] Creatinine [Mass/Vol] 0.73 mg/dL Normal 0.52-1.04 [facility] Comment on above: Performed By: #### L [id number], [id number] #### [employer] Operator: ESEQUIEL IRENE ([id number]) [facility] [address] [place] [address] GLOMERULAR FILTRATION RATE ML/MIN/1.73 SQ M.PREDICTED 81.2 mL/min/1.73m*2 Normal >60.0 [facility] Comment on above: Result Comment: Calc ulation based on the Chronic Kidney Disease Epidemiology Collaboration (CKD-EPI) equation refit without adjustment for race Performed By: #### L [id number], [id number] #### [employer] Operator: ESEQUIEL IRENE ([id number]) [facility] [address] [place] [address] Glucose [Mass/Vol] 113 mg/dL High 70-100 [facility] Comment on above: Performed By: #### L [id number], LAB15 #### [employer] Operator: ESEQUIEL IRENE ([id number]) [facility] [address] [place] [address] Potassium [Moles/Vol] 4.3 mmol/L Normal 3.5-5.1 [facility] Comment on above: Performed By: #### L [id number], [id number] #### [employer] Operator: ESEQUIEL IRENE ([id number]) [facility] [address] [place] [address] Sodium [Moles/Vol] 136 mmol/L Normal 135-145 [facility] Comment on above: Performed By: #### L [id number], [id number] #### [employer] Operator: ESEQUIEL IRENE ([id number]) [facility] [address] [place] [address] Urea nitrogen [Mass/Vol] 16 mg/dL Normal 7-17 [facility] Comment on above: Performed By: #### L [id number], LAB15 #### [employer] Operator: ESEQUIEL IRENE ([id number]) [facility] [address] [place] [address] Basic metabolic 1998 panelon 09-30-2024 Anion gap [Moles/Vol] 5 mmol/L 3 - 13 mmol/L [facility] Calcium [Mass/Vol] 8.4 mg/dL 8.4 - 10. 4 mg/dL [facility] Chloride [Moles/Vol] 104 mmol/L 98 - 10 7 mmol/L [facility] CO2 [Moles/Vol] 28 mmol/L 22 - 30 mmol/L [facility] Creatinine [Mass/Vol] 0.73 mg/dL 0.52 - 1.04 mg/dL [facility] GFR/1.73 sq M.predicted (S/P/Bld) [Vol rate/Area] 81.2 mL/min - PINF [facility] Comment on above: Calculation based on the Chronic Kidney Disease Epidemiology Collaboration (CKD-EPI) equation refit without adjustment for race Glucose [Mass/Vol] 113 mg/dL High 70 - 100 mg/dL [facility] Interpretation and review of laboratory results Abnormal [facility] Potassium [Moles/Vol] 4.3 mmol/L 3.5 - 5.1 mmol/L [facility] Sodium [Moles/Vol] 136 mmol/L 135 - 145 mmol/L [facility] Urea nitrogen [Mass/Vol] 16 mg/dL 7 - 17 mg/dL [facility] CBC W Auto Differential pane l (Bld)on 09-30-2024 Basophils (Bld) [#/Vol] 0 10*3/uL 0.0 - 0.2 10*3/uL [facility] Basophils/100 WBC (Bld) 0.3 % 0.0 - 2.0 % [facility] Eosinophils (Bld) [#/Vol] 0.1 10*3/uL 0.0 - 0.5 10*3/uL [facility] Eosinophils/100 WBC (Bld) 0.6 % 0.0 - 6.0 % [facility] Erythrocyte distribution width (RBC) [Ratio] 12.6 % 11.5 - 15.0 % [facility] Hematocrit (Bld) [Volume fraction] 41.3 % 35.0 - 47.0 % [facility] Hemoglobin (Bld) [Mass/Vol] 13.2 g/dL 11.7 - 16.0 g/dL [facility] Immature granulocytes (Bld) [#/Vol] 0 10*3/uL NINF - 0.1 10*3/uL [facility] Immature granulocytes/100 WBC (Bld) 0.4 % 0.0 - 2.0 % [facility] Interpretation and review of laboratory results Abnormal [facility] [place] [facility] Lymphocytes (Bld) [#/Vol] 1.1 10*3/uL 1.0 - 4.3 10*3/uL [facility] Lymphocytes/100 WBC (Bld) 10.8 % Low 15.0 - 45.0 % [facility] MCH (RBC) [Entitic mass] 31.5 pg 26.0 - 34.0 pg [facility] MCHC (RBC) [Mass/Vol] 32 % 30.5 - 36.0 % [facility] MCV (RBC) [Entitic vol] 98.6 fL 77.0 - 99.0 fL [facility] Monocytes (Bld) [#/Vol] 0.9 10*3/uL 0.0 - 0.9 10*3/uL [facility] Monocytes/100 WBC (Bld) 9.2 % 5.0 - 13.0 % [facility] Neutrophils (Bld) [#/Vol] 8 10*3/uL High 1.8 - 7.5 10*3/uL [facility] Neutrophils/100 WBC (Bld) 78.7 % 38.0 - 82.0 % [facility] Nucleated RBC/100 WBC (Bld) [Ratio] 0 % [facility] [place] [facility] Platelet mean volume (Bld) [Entitic vol] 11.3 fL 9.0 - 12.7 fL [facility] Platelets (Bld) [#/Vol] 239 10*3/uL 140 - 440 10*3/uL [facility] RBC (Bld) [#/Vol] 4.19 10*6/uL 3.80 - 5.20 10*6/uL [facility] WBC (Bld) [#/Vol] 10.2 10*3/uL 3.6 - 10.7 10*3/uL [facility] CBC WITH AUTO DIFFERENTIALon 09-30-2024 Basophils (Bld) [#/Vol] 0.0 10*3/uL Normal 0.0-0.2 [facility] Comment on above: Performed By: #### L [id number] #### [employer] Operator: ESEQUIEL IRENE ([id number]) [facility] [address] [place] [address] Basophils/100 WBC (Bld) 0.3 % Normal 0.0-2.0 [facility] Comment on above: Performed By: #### L [id number] #### [employer] Operator: ESEQUIEL IRENE ([id number]) [facility]) [address] [place] [address] Eosinophils (Bld) [#/Vol] 0.1 10*3/uL Normal 0.0-0.5 [facility] Comment on above: Performed By: #### L [id number] #### [employer] Operator: ESEQUIEL IRENE ([id number]) [facility] [address] [place] [address] Eosinophils/100 WBC (Bld) 0.6 % Normal 0.0-6.0 [facility] Comment on above: Performed By: #### L [id number] #### [employer] Operator: ESEQUIEL IRENE ([id number]) [facility]) [address] [place] [address] Erythrocyte distribution width (RBC) [Ratio] 12.6 % Normal 11.5-15.0 [facility] Comment on above: Performed By: #### L [id number] #### [employer] Operator: ESEQUIEL IRENE ([id number]) [facility]) [address] [place] [address] Hematocrit (Bld) [Volume fraction] 41.3 % Normal 35.0-47.0 [facility] Comment on above: Performed By: #### L [id number] #### [employer] Operator: ESEQUIEL IRENE ([id number]) [facility]) [address] [place] [address] Hemoglobin (Bld) [Mass/Vol] 13.2 g/dL Normal 11.7-16.0 [facility] Comment on above: Performed By: #### L [id number] #### [employer] Operator: ESEQUIEL IRENE ([id number]) [facility] [address] [place] [address] IMMATURE GRANS % 0.4 % Normal 0.0-2.0 [facility] Comment on above: Performed By: #### L [id number] #### [employer] Operator: ESEQUIEL IRENE ([id number]) [facility]) [address] [place] [address] IMMATURE GRANS ABSOLUTE 0.0 10*3/uL Normal <0.1 [facility] Comment on above: Performed By: #### L [id number] #### [employer] Operator: ESEQUIEL IRENE ([id number]) [facility]) [address] [place] [address] Lymphocytes (Bld) [#/Vol] 1.1 10*3/uL Normal 1.0-4.3 [facility] Comment on above: Performed By: #### L [id number] #### [employer] Operator: ESEQUIEL IRENE ([id number]) [address] Lymphocytes/100 WBC (Bld) 10.8 % Low 15.0-45.0 [facility] Comment on above: Performed By: #### L [id number] #### [employer] Operator: ESEQUIEL IRENE ([id number]) [facility]) [address] [place] [address] MCH (RBC) [Entitic mass] 31.5 pg Normal 26.0-34.0 [facility] Comment on above: Performed By: #### L [id number] #### [employer] Operator: ESEQUIEL IRENE ([id number]) [address] MCHC 32.0 % Normal 30.5-36.0 [facility] Comment on above: Performed By: #### L [id number] #### [employer] Operator: ESEQUIEL IRENE ([id number]) [address] MCV (RBC) [Entitic vol] 98.6 fL Normal 77.0-99.0 [facility] Comment on above: Performed By: #### L [id number] #### Kelly Machine Operator: ESEQUIEL IRENE ([id number]) [facility] ([facility]) [address] [place] [address] Monocytes (Bld) [#/Vol] 0.9 10*3/uL Normal 0.0-0.9 [facility] Comment on above: Performed By: #### L [id number] #### Kelly Machine Operator: ESEQUIEL IRENE ([id number]) [facility] [address] [place] [address] Monocytes/100 WBC (Bld) 9.2 % Normal 5.0-13.0 [facility] Comment on above: Performed By: #### L [id number] #### Kelly Machine Operator: ESEQUIEL IRENE ([id number]) [facility] [address] [place] [address] NEUTROPHILS ABSOLUTE 8.0 10*3/uL High 1.8-7.5 [facility] Comment on above: Performed By: #### L [id number] #### Kelly Machine Operator: ESEQUIEL IRENE ([id number]) [facility] [address] [place] [address] Neutrophils/100 WBC (Bld) 78.7 % Normal 38.0-82.0 [facility] Comment on above: Performed By: #### L [id number] #### Kelly Machine Operator: ESEQUIEL IRENE ([id number]) [facility] ([facility]) [address] [place] [address] NRBC 0.0 /100 WBCs Normal 0.0-2.0 [facility] Comment on above: Performed By: #### L [id number] #### Kelly Machine Operator: ESEQUIEL IRENE ([id number]) [facility] [address] [place] [address] Platelet mean volume (Bld) [Entitic vol] 11.3 fL Normal 9.0-12.7 [facility] Comment on above: Performed By: #### L [id number] #### Kelly Machine Operator: ESEQUIEL IRENE ([id number]) [facility] [address] [place] [address] [place] Platelets (Bld) [#/Vol] 239 10*3/uL Normal 140-440 [facility] Comment on above: Performed By: #### L [id number] #### Kelly Machine Operator: ESEQUIEL IRENE ([id number]) [facility] [address] [place] [address] RBC (Bld) [#/Vol] 4.19 10*6/uL Normal 3.80-5.20 [facility] Comment on above: Performed By: #### L [id number] #### Kelly Machine Operator: ESEQUIEL IRENE ([id number]) [facility] [address] [place] [address] WBC (Bld) [#/Vol] 10.2 10*3/uL Normal 3.6-10.7 [facility] Comment on above: Performed By: #### L [id number] #### Kelly Machine Operator: ESEQUIEL IRENE ([id number]) [facility] ([facility]) [address] [place] [address] CT CERVICAL SPINE WO IV CONT [facility] 09-30-2024 CT CERVICAL SPINE WO IV CONTRAST [...] moderate left neuroforaminal narrowing C3-C4. There is zjqg-wy-hpvuhkvq left and moderate right carotid artery atherosclerotic [...] MD Electronically Signed Date/Time: 09/30/2024 2:[address] [facility] CT Cervical spine WO contras ton 09-30-2024 Impression: 1. Mild spondylolisthesis C3-C4 and C4-C5. 2. Moderate cervical spondylosis as above. Moderate left neuroforaminal narrowing C3-C4. 3. Atherosclerosis proximal cervical internal carotid arteries moderate in severity on the right. Report Dictated on Electronically Signed By: Xander Sterling MD Electronically Signed Date/Time: 09/30/2024 2:08 PM [facility] Name[facility]GROOT : 1940 [id number] Exam Date/Time: 09/30/2024 13:39 Procedure: CT CERVICAL [...] moderate left neuroforaminal narrowing C3-C4. There is lpun-aa-swauysvx left and moderate right carotid artery atherosclerotic calcification near the proximal internal carotid arteries. Screening examination of the lung apices demonstrates no apical pneumothorax. There is some pleural thickening in the lung apices. [facility] Xander Sterling MD - 09/30/2024 Patient Name: HENRY DEGROOT : 1940 [id number] Exam Date/Time: 09/30/2024 13:39 Procedure: CT CERVICAL [...] moderate left neuroforaminal narrowing C3-C4. There is pnvx-xb-hmfvcqcs left and moderate right carotid artery atherosclerotic [...] MD Electronically Signed Date/Time: 09/30/2024 2:08 PM [facility] CT HEAD WO IV CONTRASTon CT HEAD WO IV CONTRAST Patient Name: HENRY LAWSON : 1940 [id number] Exam Date/Time: 09/30/2024 13:39 Procedure: CT HEAD [...] Signed Date/Time: 09/30/2024 2:03 PM EST Normal [facility] CT Head WO contraston 2023 Impression: 1. [...] Signed Date/Time: 09/30/2024 2:03 PM EST [facility] Patient Name: HENRY DEGROOT : 1940 [id number] Exam Date/Time: 09/30/2024 13:39 Procedure: CT HEAD [...] a small right-sided parietal scalp contusion, hematoma. [facility] Xander Sterling MD - 09/30/2024 Patient Name: HENRY DEGROOT : 1940 [id number] Exam Date/Time: 09/30/2024 13:39 Procedure: CT HEAD [...] Electronically Signed Date/Time: 09/30/2024 2:[address] Head WO contrastOrdered B y: Xander Sterling on 09-30-2024 [employer] Work Phone: ECG 12-LEADon 09-30-2024 ECG 12-LEAD IMPRESSION: Sinus rhythm Normal [place] Low voltage, precordial leads Electronically Signed On 09-30-2024 15:23:50 EST by Toi Miller [facility] ED Provider Noteon ED Provider Note I did not participat e in the care of this patient Linus Fuchs MD 10/02/24 0043 [facility] ED Provider Note Emergency Department Encounter [facility] [...] for clarification.) Toi Miller MD Acute Care [facility] Toi Miller MD 09/30/24 1524 [facility] ED Provider Note EMERGENCY DEPARTMENT ENCOUNTER Pt [...] cervical internal (more content not included)... Normal [facility] Laboratory - Chemistry and C hemistry - challengeon 09-30-2024 Troponin I.cardiac [Mass/Vol] ng/mL NINF - 0.034 ng/mL [facility] No Panel Informationon 09-30 P Charlotte 54 degrees [facility] NV Interval 184 ms [facility] QRS [place] 18 degrees [facility] QRSD Interval 78 ms [facility] QT Interval 382 ms [facility] QTC Interval 441 ms [facility] T Wave [place] 9 degrees [facility] Sinus rhythm Normal [place] Low voltage, precordial leads Electronically Signed On 09-30-2024 15:23:50 EST by Toi Albrecht MD - 09/30/2024 IMPRESSION: Sinus rhythm Normal [place] Low voltage, precordial leads Electronically Signed On 09-30-2024 15:23:50 EST by Toi Miller [facility] Radiology Study observation (narrative) [facility] alth TROPONIN, WITH SERIAL REFLEX on 09-30-2024 Troponin I.cardiac [Mass/Vol] ng/mL Normal <0.034 [facility] Comment on above: Result Comment: ORDE R COMMENTS: Patients with high levels of Biotin oral intake (ie >5 mg/day) may have falsely decreased Troponin levels. Performed By: #### L [id number], [id number] #### Kelly Machine Operator: ESEQUIEL IRENE ([id number]) [facility] ([facility]) [address] [place] [address] Troponin I.cardiac [Mass/Vol ]on 09-30-2024 Interpretation and review of laboratory results Normal [facility] Patients with high levels of Biotin oral intake (ie >5 mg/day) may have falsely decreased Troponin levels. [facility] Vital signson 09-30-2024 Heart rate 80 /min bpm [facility] XR Hand - right 2 Viewson No acute fracture or dislocation of the right hand. Moderate degenerative changes involving the CMC joint and PIP joints. Report Dictated on Electronically Signed By: Raquel Clark MD Electronically Signed Date/Time: 09/30/2024 2:09 PM EST [facility] Patient Name: HENRY DEGROOT : [...] mildly osteopenic. The soft tissues are unremarkable. [facility] Albina Clark MD - 09/30/2024 Patient [...] Electronically Signed Date/Time: 09/30/2024 2:09 PM EST [facility] Radiology Study observation (narrative) [facility]th XR Hand - right 2 ViewsOrder ed By: Albina Clark on 09-30-2024 [facility] InMyRoom Work Phone: XR Pelvis 1 or 2 Viewson Impression: No evidence of fracture or subluxation of the pelvis. Report Dictated on Electronically Signed By: Xander Sterling MD Electronically Signed Date/Time: 09/30/2024 2:10 PM [facility] Patient Name: HENRY DEGROOT : 1940 [...] slightly larger on the left. There is kxne-sr-ufbwjkzn lower lumbar spondylosis. [facility] Xander Sterling MD - 09/30/2024 [...] slightly larger on the left. There is oryh-ay-zbiqemnj lower lumbar spondylosis. IMPRESSION: Impression: No evidence of fracture or subluxation of the pelvis. Report Dictated on Electronically Signed By: Xander Sterling MD Electronically Signed Date/Time: 09/30/2024 2:10 PM [facility] [employer] [facility] Radiology Study observation (narrative) [facility] Cardiology Visit Reporton Cardiology Visit Report [facility] [address] [place] [address]. [address] [place] [address] OFFICE VISIT Date of Service: 09/21/24 MR#: [id number] Acct: [id number] Name: HENRY DEGROOT Wendy Rep #: [id number] : 1940 Provider: REHANA villanueva Age/Sex: 84/F Location: [facility] Status: Signed HPI HPI History of Present [...] Visit Reasons: 18 M FU PFM PT Aircraft Communicator Required: No Accompanied by: Daughter Is patient in pain?: No Allergies No Known Allergies Allergy (Verified 09/21/24 09:30) Medications ???Medication ???Instructions ???Recorded ???Confirmed ???Type vit C 250 mg-vit E 90 mg-zinc 40 1 ea PO BID eye vitamin 05/07/18 09/21/24 History mg-copper 1 wv-aipuyh-hgrebe capsule apixaban 5 mg tablet 5 mg [...] denosumab 60 mg/mL subcutaneous 60 mg subcut [id number] Osteoporosis 05/02/23 09/21/24 History syringe (Prolia) metoprolol [...] (PF) 15 mg/0.1 mL 15 mg intravitreal [id number] Eyes 09/21/24 09/21/24 History intravitreal solution (Syfovre (PF)) Ejection fraction %: 55 (55-60) Have you fallen in the past year?: Yes (July 05, passed out and fell) [facility] Medical History (Updated 09/21/24 @ 09:55 by Tai Krishna 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 Normal [facility] MA MAMMOGRAM SCREENING LEFT W/Mehrdad 03-17-2024 MA MAMMOGRAM SCREENING LEFT W/RICHARD ORIGINAL [facility] [address], [place] [address] PROCEDURE FOR: HENRY DEGROOT [address] [place] [address] Home: PID#: [id number] Exam#: [id number] : 1940 Age: 83 TO: ИВАН LOPEZ DO [address] [address] Fax: NO FAX EXAMINATION: SCREENING DIGITAL LEFT [...] 03/17/2024 5:47:44 PM Ordering Provider: ИВАН LOPEZ Rubbing Bed Operator: JUAN CARLOS SPRAGUE (Urszula)(M) letter sent: Normal BI-RADS 1 and 2 Mammogram BI-RADS: 2 Benign Normal [facility] ([place]) LABORATORYOrdered By: Chichi Parra on 03-04-2024 Albumin DL <= 20 mg/L (U) [Mass/Vol] 263 mcg/dL Invalid Interpretation Code AO ADM SS Albumin/Creatinine DL <= 20 mg/L (U) [Mass ratio] 2 mcg/mg Normal 0 - 30 mcg/mg AO ADM SS Creatinine (U) [Mass/Vol] 106.0 mg/dL Normal 28.0 - 117.0 mg/dL AO ADM SS MALBRon 03-04-2024 U Creatinine 106.0 mg/dL Normal 28.0-117.0 [facility] ([place]) Comment on above: Performed By: #### M ALBR #### [address] [address] U Microalb 263 mcg/dL Normal [facility] ([place]) Comment on above: Performed By: #### M ALBR #### [address] [address] U Ratio Alb/Cre 2 mcg/mg Normal 0-30 [facility] ([place]) Comment on above: Performed By: #### M ALBR #### [address] [address] .Auto Diffon 02-04-2024 Basophil, Absolute 0.0 10 3/mcL Normal 0.0-0.2 [facility] ([place]) Comment on above: Performed By: #### V IDH, LIPID, GFR, CMP, CBC, ANEU, TSH, ADIFF #### [address] [address] Basophils/100 WBC (Bld) 0.5 % Normal 0.0-2.5 [facility] ([place]) Comment on above: Performed By: #### V IDH, LIPID, GFR, CMP, CBC, ANEU, TSH, ADIFF #### [address] [address] Eosinophil, Absolute 0.1 10 3/mcL Normal 0.0-0.4 [facility] ([place]) Comment on above: Performed By: #### V IDH, LIPID, GFR, CMP, CBC, ANEU, TSH, ADIFF #### [address] [address] Eosinophils/100 WBC (Bld) 2.0 % Normal 0.0-7.0 [facility] ([place]) Comment on above: Performed By: #### V IDH, LIPID, GFR, CMP, CBC, ANEU, TSH, ADIFF #### [address] [address] Lymphocyte, Absolute 1.9 10 3/mcL Normal 0.8-3.9 [facility] ([place]) Comment on above: Performed By: #### V IDH, LIPID, GFR, CMP, CBC, ANEU, TSH, ADIFF #### [address] [address] Lymphocytes/100 WBC (Bld) 25.7 % Normal 10.0-50.0 [facility] ([place]) Comment on above: Performed By: #### V IDH, LIPID, GFR, CMP, CBC, ANEU, TSH, ADIFF #### [address] [address] Monocyte, Absolute 0.7 10 3/mcL Normal 0.2-1.0 [facility] ([place]) Comment on above: Performed By: #### V IDH, LIPID, GFR, CMP, CBC, ANEU, TSH, ADIFF #### [address] [address] Monocytes/100 WBC (Bld) 9.5 % Normal 1.7-13.0 [facility] ([place]) Comment on above: Performed By: #### V IDH, LIPID, GFR, CMP, CBC, ANEU, TSH, ADIFF #### [address] [address] Neutrophils/100 WBC (Bld) 62.3 % Normal 37.0-80.0 [facility] ([place]) Comment on above: Performed By: #### V IDH, LIPID, GFR, CMP, CBC, ANEU, TSH, ADIFF #### [address] [address] .GFRon 02-04-2024 GFR 80 ml/min/1.73sqm Normal [facility] ([place]) Comment on above: Result Comment: GFR Population [...] GFR, CMP, CBC, ANEU, TSH, ADIFF #### [address] [address] GFR Non- 66 ml/min/1.73sqm Normal [facility] ([place]) Comment on above: Result Comment: GFR Population [...] GFR, CMP, CBC, ANEU, TSH, ADIFF #### [address] [address] .NEUABSon 02-04-2024 Neutrophil, Absolute 4.6 10 3/mcL Normal 2.9-6.2 [facility] ([place]) Comment on above: Performed By: #### V IDH, LIPID, GFR, CMP, CBC, ANEU, TSH, ADIFF #### [address] [address] CBCon 02-04-2024 Erythrocyte distribution width (RBC) [Ratio] 12.8 % Normal 11.5-14.5 [facility] ([place]) Comment on above: Performed By: #### V IDH, LIPID, GFR, CMP, CBC, ANEU, TSH, ADIFF #### [address] [address] Hematocrit (Bld) [Volume fraction] 41.2 % Normal 37.0-47.0 [facility] ([place]) Comment on above: Performed By: #### V IDH, LIPID, GFR, CMP, CBC, ANEU, TSH, ADIFF #### [address] [address] Hgb 14.2 G/dL Normal 12.0-16.0 [facility] ([place]) Comment on above: Performed By: #### V IDH, LIPID, GFR, CMP, CBC, ANEU, TSH, ADIFF #### [address] [address] MCH (RBC) [Entitic mass] 32.9 pg High 27.0-31.2 [facility] ([place]) Comment on above: Performed By: #### V IDH, LIPID, GFR, CMP, CBC, ANEU, TSH, ADIFF #### [address] [address] MCHC 34.4 G/dL Normal 33.0-37.0 [facility] ([place]) Comment on above: Performed By: #### V IDH, LIPID, GFR, CMP, CBC, ANEU, TSH, ADIFF #### [address] [address] MCV (RBC) [Entitic vol] 95.6 fL High 80.0-94.0 [facility] ([place]) Comment on above: Performed By: #### V IDH, LIPID, GFR, CMP, CBC, ANEU, TSH, ADIFF #### [address] [address] Platelet 289 10 3/mcL Normal 130-400 [facility] ([place]) Comment on above: Performed By: #### V IDH, LIPID, GFR, CMP, CBC, ANEU, TSH, ADIFF #### [address] [address] Platelet mean volume (Bld) [Entitic vol] 9.0 fL Normal 7.4-10.4 [facility] ([place]) Comment on above: Performed By: #### V IDH, LIPID, GFR, CMP, CBC, ANEU, TSH, ADIFF #### [address] [address] RBC 4.31 10 6/mcL Normal 4.20-5.40 [facility] ([place]) Comment on above: Performed By: #### V IDH, LIPID, GFR, CMP, CBC, ANEU, TSH, ADIFF #### [address] [address] WBC 7.4 10 3/mcL Normal 4.6-10.8 [facility] ([place]) Comment on above: Performed By: #### V IDH, LIPID, GFR, CMP, CBC, ANEU, TSH, ADIFF #### [address] [address] CMPon 02-04-2024 Albumin Level 3.0 G/dL Low 3.4-4.8 [facility]) Comment on above: Performed By: #### V IDH, LIPID, GFR, CMP, CBC, ANEU, TSH, ADIFF #### [address] [address] Albumin/Globulin [Mass ratio] 0.8 {ratio} Low 1.1-2.5 [facility] ([place]) Comment on above: Performed By: #### V IDH, LIPID, GFR, CMP, CBC, ANEU, TSH, ADIFF #### [address] [address] ALP [Catalytic activity/Vol] 64 U/L Normal 40-135 [facility] ([place]) Comment on above: Performed By: #### V IDH, LIPID, GFR, CMP, CBC, ANEU, TSH, ADIFF #### [address] [address] ALT [Catalytic activity/Vol] 22 U/L Normal 14-59 [facility] ([place]) Comment on above: Performed By: #### V IDH, LIPID, GFR, CMP, CBC, ANEU, TSH, ADIFF #### [address] [address] AST [Catalytic activity/Vol] 20 U/L Normal 10-40 [facility] ([place]) Comment on above: Performed By: #### V IDH, LIPID, GFR, CMP, CBC, ANEU, TSH, ADIFF #### [address] [address] Bili Total 0.5 mg/dL Normal 0.2-1.0 [facility] ([place]) Comment on above: Result Comment: Use of this assay is not recommended for patients undergoing treatment with eltrombopag due to the potential for falsely elevated results. Performed By: #### V IDH, LIPID, GFR, CMP, CBC, ANEU, TSH, ADIFF #### [address] [address] BUN/Creatinine Ratio 25 ratio Normal 7-27 [facility] ([place]) Comment on above: Performed By: #### V IDH, LIPID, GFR, CMP, CBC, ANEU, TSH, ADIFF #### [address] [address] Calcium [Mass/Vol] 9.2 mg/dL Normal 8.4-10.2 [facility] ([place]) Comment on above: Performed By: #### V IDH, LIPID, GFR, CMP, CBC, ANEU, TSH, ADIFF #### [address] [address] Chloride [Moles/Vol] 104 mmol/L Normal 98-107 [facility] ([place]) Comment on above: Performed By: #### V IDH, LIPID, GFR, CMP, CBC, ANEU, TSH, ADIFF #### [address] [address] CO2 [Moles/Vol] 30 mmol/L Normal 23-31 [facility] ([place]) Comment on above: Performed By: #### V IDH, LIPID, GFR, CMP, CBC, ANEU, TSH, ADIFF #### [address] [address] Creatinine [Mass/Vol] 0.83 mg/dL Normal 0.55-1.02 [facility] ([place]) Comment on above: Performed By: #### V IDH, LIPID, GFR, CMP, CBC, ANEU, TSH, ADIFF #### [address] [address] Electrolyte Balance 5.0 mEq/L Normal 4.0-15.0 [facility] ([place]) Comment on above: Performed By: #### V IDH, LIPID, GFR, CMP, CBC, ANEU, TSH, ADIFF #### [address] [address] Globulin 3.8 G/dL Normal [facility] ([place]) Comment on above: Performed By: #### V IDH, LIPID, GFR, CMP, CBC, ANEU, TSH, ADIFF #### [address] [address] Glucose [Mass/Vol] 96 mg/dL Normal 83-110 [facility] ([place]) Comment on above: Performed By: #### V IDH, LIPID, GFR, CMP, CBC, ANEU, TSH, ADIFF #### [address] [address] Potassium [Moles/Vol] 4.7 mmol/L Normal 3.5-5.1 [facility] ([place]) Comment on above: Performed By: #### V IDH, LIPID, GFR, CMP, CBC, ANEU, TSH, ADIFF #### [address] [address] Sodium [Moles/Vol] 139 mmol/L Normal 136-145 [facility] ([place]) Comment on above: Performed By: #### V IDH, LIPID, GFR, CMP, CBC, ANEU, TSH, ADIFF #### [address] [address] Total Protein 6.8 G/dL Normal 6.4-8.2 [facility] ([place]) Comment on above: Performed By: #### V IDH, LIPID, GFR, CMP, CBC, ANEU, TSH, ADIFF #### [address] [address] Urea nitrogen [Mass/Vol] 21 mg/dL High 7-18 [facility] ([place]) Comment on above: Performed By: #### V IDH, LIPID, GFR, CMP, CBC, ANEU, TSH, ADIFF #### [address] [address] LABORATORYOrdered By: SYSTEM SYSTEM on 02-04-2024 25-hydroxyvitamin [...] 02-04-2024 Cholesterol [Mass/Vol] 207 mg/dL High 0-200 [facility] ([place]) Comment on above: Result Comment: Chol esterol Reference Interval: Less than 200 Desirable 200-239 Borderline high risk 240 and above High risk Performed By: #### V IDH, LIPID, GFR, CMP, CBC, ANEU, TSH, ADIFF #### [address] [address] Cholesterol in HDL [Mass/Vol] 82 mg/dL High 40-60 [facility] ([place]) Comment on above: Performed By: #### V IDH, LIPID, GFR, CMP, CBC, ANEU, TSH, ADIFF #### [place] [address] [place], [place] [address] Cholesterol in LDL [Mass/Vol] 113 mg/dL Normal 0-130 [facility] ([place]) Comment on above: Performed By: #### V IDH, LIPID, GFR, CMP, CBC, ANEU, TSH, ADIFF #### [address] [place] [address] [place], [place] [address] Triglyceride [Mass/Vol] 62 mg/dL Normal 0-150 [facility] ([place]) Comment on above: Result Comment: Trig lyceride Reference Interval: Less than 150 Normal 150-199 Borderline high risk 200-499 High risk 500 or higher Very high risk Performed By: #### V IDH, LIPID, GFR, CMP, CBC, ANEU, TSH, ADIFF #### Jaren [address] [address] TSHon 02-04-2024 TSH Qn 1.85 m[IU]/L Normal 0.36-3.74 [facility] ([place]) Comment on above: Performed By: #### V IDH, LIPID, GFR, CMP, CBC, ANEU, TSH, ADIFF #### [address] [address] VIDHon 02-04-2024 Vit. D 25-Hydroxy 30.7 ng/mL Normal [facility] ([place]) Comment on above: Result Comment: Inte rpretive Values Based on Total 25(OH) Vitamin D: Deficient <20 ng/mL Insufficient 20 - <30 ng/mL Sufficient 30-100 ng/mL Performed By: #### V IDH, LIPID, GFR, CMP, CBC, ANEU, TSH, ADIFF #### [address] [address] BD BONE DENSITY DEXA AXIAL S KELETONon [...] 01/13/2024 10:46:45 AM Ordering Provider: ИВАН LOPEZ [facility] ([place]) Absolute lymphocyte countOrd ered By: Thomas Mayen on 11-29-2023 Lymphocytes Auto (Unsp spec) [#/Vol] 1.22 10*3/uL 0.83-4.51 [facility] Automated lymphocyte count a s percentage of total leukocytesOrdered By: Thomas Mayen on 11-29-2023 Lymphocytes/100 WBC Auto (Unsp spec) 8.4 % 19-41 [facility] Basophil percentageOrdered B y: Thomas Mayen on 11-29-2023 Basophils/100 WBC (Bld) 0.1 % 0-1 [facility] Chloride [Moles/Vol] 110 mmol/L 98-107 [facility] Eosinophils/100 WBC (Bld) 0.3 % 0-5 [facility] Glucose [Mass/Vol] 140 mg/dL 74-106 [facility] Comment on above: Fasting Glucose resu lt greater than or equal to 126 mg/dL suggests DIABETES MELLITUS per A.D.A. criteria. Hemoglobin (Bld) [Mass/Vol] 14.8 g/dL 12.0-15.0 [facility] Monocytes/100 WBC (Bld) 5.9 % 0-10 [facility] Neutrophils (Bld) [#/Vol] 12.3 10*3/uL 2.0-7.7 [facility] Neutrophils/100 WBC (Bld) 84.9 % 47-70 [facility] Potassium [Moles/Vol] 3.8 mmol/L 3.5-5.1 [facility] Sodium [Moles/Vol] 140 mmol/L 136-145 [facility] WBC (Bld) [#/Vol] 14.5 10*3/uL 4.4-11.[address] [facility] Determination of erythrocyte mean corpuscular volume (MCV)Ordered By: Thomas Mayen on 11-29-2023 MCV (RBC) [Entitic vol] 99.8 fL 81-99 [facility] Erythrocyte distribution wid th ratioOrdered By: Thomas Mayen on 11-29-2023 Erythrocyte distribution width (RBC) [Ratio] 12.2 % 11.6-14.6 [facility] Erythrocyte distribution wid th standard deviationOrdered By: Thomas Mayen on 11-29-2023 Erythrocyte distribution width (RBC) [Entitic vol] 44.4 fL 35.1-43.9 [facility] Hematocrit Auto (Bld) [Volum e fraction]Ordered By: Thomas Mayen on 11-29-2023 Hematocrit (Bld) [Volume fraction] 46.2 % 37-47 [facility] Immature granulocytes/100 WB C Auto (Bld)Ordered By: Thomas Mayen on 11-29-2023 Immature granulocytes/100 WBC (Bld) 0.400 % 0.0-0.9 [facility] Comment on above: IG% - Immature Granu locytes (promyelocytes, myelocytes and metamyelocytes) > 1% indicates that a LEFT SHIFT is Present. Laboratory - Chemistry and C hemistry - challengeOrdered By: Thomas Mayen on 11-29-2023 CO2 [Moles/Vol] 26.0 mmol/L 21.0-32.0 [facility] Urea nitrogen/Creatinine [Mass ratio] 25.5 mg/mg 10-20 [facility] Laboratory - Hematology and Cell countsOrdered By: Thomas Mayen on 11-29-2023 MCH (RBC) [Entitic mass] 32.0 pg 27.0-32.0 [facility] MCHC (RBC) [Mass/Vol] 32.0 g/dL 32-36 [facility] Nucleated RBC/100 WBC (Bld) [Ratio] 0 % 0-5 [facility] Platelets (Bld) [#/Vol] 233 10*3/uL 150-450 [facility] Laboratory - Microbiology an d Antimicrobial susceptibilityOrdered By: Thomas Mayen on 11-29-2023 SARS-CoV-2 (COVID-19) RNA CHELSIE+probe Ql (Unsp spec) [facility] No Panel InformationOrdered By: Thomas Mayen on 11-29-2023 Troponin I High Sensitivity 14 pg/mL 3.0-54.0 [facility] Comment on above: Please Note: [place] t Units and Gender Specific Reference Ranges. For more information see Policy Stat Procedure [place] High Sensitivity Troponin (TNIH) and attachments. Estimated Creatinine Clearance Calc 52.86 ml/min [facility] Estimated GFR (MDRD) Amer 90 mL/min >60 [facility] Comment on above: GFR Calc Estimated GFR (MDRD) Non-Af Amer 74 mL/min >60 [facility] Comment on above: Non- GFR Calc Platelet mean volume Sanjiv-Ec ker (Bld) [Entitic vol]Ordered By: Thomas Mayen on 11-29-2023 Platelet mean volume (Bld) [Entitic vol] 11.5 fL 6.2-12.0 [facility] RBC Auto (Bld) [#/Vol]Ordere d By: Thomas Mayen on 11-29-2023 RBC (Bld) [#/Vol] 4.63 10*6/uL 4.2-5.[address] [facility] Serum or plasma calcium isela urement (mass/volume)Ordered By: Thomas Mayen on 11-29-2023 Calcium [Mass/Vol] 8.8 mg/dL 8.5-10.1 [facility] Serum or plasma creatinine m easurement (mass/volume)Ordered By: Thomas Mayen on 11-29-2023 Creatinine [Mass/Vol] 0.78 mg/dL 0.55-1.02 [facility] Comment on above: The validity of the calculated GFR & GFRAA in patients over 70 years has not been determined. Clinical correlation is essential. Serum or plasma urea nitroge n measurement (mass/volume)Ordered By: Thomas Mayen on 11-29-2023 Urea nitrogen [Mass/Vol] 20 mg/dL 7-18 [facility] Thin prep Papanicolaou smear with manual screeningOrdered By: Thomas Mayen on 11-29-2023 Thin prep Papanicolaou smear with manual screening 4 5-15 [facility] LABORATORYOrdered By: Loy Dhillon on 11-30-2022 [...] cfu/ml. No Significant growth. Sensitivity not indicated. [facility] AMIKACIN:SUSC:PT:ISOLATE:ORD QN:MICon 11-24-2022 Amikacin BENEDICT [Susc] >100,000 cfu/ml Escherichia coli [facility] Amikacin BENEDICT [Susc]on 2022 Escherichia coli Escherichia coli [facility] CEFAZOLIN:SUSC:PT:ISOLATE:OR DQN:MICon 08-23-2022 ceFAZolin BENEDICT [Susc] >100,000 cfu/ml Escherichia coli [facility] ceFAZolin BENEDICT [Susc]on 08-23 Escherichia coli Escherichia coli [facility] LABORATORYOrdered By: Loy Dhillon on 02-02-2022 Albumin [...] Chemistry S OTARon 06-30-2020 OT Assessment Report [facility] Occupational Therapy Community Mobility and IADL Report [...] she demonstrated functional vision as required by [facility] for far acuity and visual ervin, within raw score normal for age on visual perceptual screening, orientation/verbal problem solving/recall memory/concentration/re trieval for more residential 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 MEDICAL REC #: [id number] [place] [address] ADMIT DATE: SERVICE DATE: 06/30/20 Occupational Therapy [...] Henry's current situation and indication for driving cessation/residential as highlighted in this report. She has excellent support available while in wonderful situation that promotes her autonomy while she has assist as needed. Her current license is suspended with this therapist recommending that Henry's daughter take her to get [place] identification card in future at the [facility] while this therapist will provide information to physician to report concern to [facility]. Also discussed recommendation for increased activity and possible counseling and socialization with peers while expect she would benefit from all of the options if she is willing. 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 If the patient's physical and mental status remains the same as during the evaluation period, the recommendations in the report should be considered valid for 6 months. Beyond that time, a re - evaluation may be necessary. Signed by: JUAN CARLOS RIVERO, OT/L, CDRS, CDI/PD 07/07/2020 14:08:35 [facility] PATIENT NAME: HENRY DEGROOT [address] MEDICAL REC #: [id number] [place] [address] ADMIT DATE: SERVICE DATE: 06/30/20 Occupational Therapy Assessment ATTENDING DESEAN: Mesha Dean [facility] Occupational Therapy Performance Skills Evaluation Therapy [...] Initial Evaluation Date: 06/30/2020 Referring Clinician: ELLEN HendersonCOAL SHOVELER Medical Diagnosis: R MCA stroke Date of Onset: 02/2016 Past Medical History: breast cancer, laser surgery on B eyes for pressure (glaucoma), B cataract surgery, 02/17 R CVA, 02/19 seizure (uncertain if she also has macular degeneration in her R eye), elevated cholesterol, depression Current Medications: Eliquis, Pravastatin, Toprol, Levetiracetem, Duloxetine, [place] Q, Joint Advantage, Preservision AREDS, tylenol Demographics: Age: 80Y Gender: Female Primary Language: Nepalese Preferred Language: Nepalese Screening for COVID-19 Does the patient/client present [...] all self care tasks on her own [facility] PATIENT NAME: HENRY DEGROOT [address] MEDICAL REC #: [id number] [place] [address] ADMIT DATE: SERVICE DATE: 06/30/20 Occupational Therapy [...] 8 years of formal schooling (raised in [facility] [place]); worked for 20 years at [employer]; reading, word searches, cooking Driving History: Driving for: not sure at what age she started driving while she stopped when she was 75 due to having the stroke years. 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 Traffic Violations: Patient does not have any traffic violations. Patient Report: Henry shared that she would like to move out on her own to [facility] while also sharing that she owns a condo in [place] she could also consider although it is rented out. She is also interested in considering involvement in [employer] program however she has never been involved with this previously and is not certain where the options exist. She shared that she thinks she is capable of moving out on her own while also included that she would like to find a man in the future also. Finally she would like to return to [employer] however has not initiated to her daughter [...] unable to articulate. did not indicate pain [facility] PATIENT NAME: HENRY DEGROOT [address] MEDICAL REC #: [id number] [place] [address] ADMIT DATE: SERVICE DATE: 06/30/20 Occupational Therapy Assessment ATTENDING DESEAN: Mesha Dean Social History: Marital Status: since 2017 Children: 2 daughters Reside: lives in same house with 1, other lives in [facility] Employment Status: none Recreational Activities/Hobbies: [...] keep moving back to left COGNITION Screening [facility] PATIENT NAME: HENRY DEGROOT [address] MEDICAL REC #: [id number] [place] [address] ADMIT DATE: SERVICE DATE: 06/30/20 Occupational Therapy Assessment ATTENDING DESEAN: Mesha Dean Orientation: No impairment detected (5/5 correct orientation reponses). Attention: Stryker making test Part B: 278 seconds - impaired. Functional performance on this alternating attention task <180 sec therefore not within same. Safety/Judgment/Problem Solving: No impairment detected (identifies 3/3 appropriate solutions for emergency responses). Memory: score of 4 on Short Blessed Cognitive screen which is in normal to minimally impaired range Also noted during the evaluation: Attention - required redirection multiple times. [place] thinking. Delayed processing. Tangential speech. Perseveration. Impulsivity. [...] lacking sense of pressure while unable to bilingual patient support caseworker the same. Coordination: Within functional limits. Rapid [...] at their daughter's house who was willing [facility] PATIENT NAME: HENRY DEGROOT [address] MEDICAL REC #: [id number] [place] [address] ADMIT DATE: SERVICE DATE: 06/30/20 Occupational Therapy [...] about moving out on her own into the [facility]. Henry also has not been out of the house for about 1.5 years other than for appointments while she refuses to go to [employer] to do her own shopping with her [...] various concerns indicated in this report, driving residential/cessation necessary. This therapist did talk at length [...] exercise/activity plan. Cognitive functioning. Audience: Patient., daughter [facility] PATIENT NAME: HENRY DEGROOT [address] MEDICAL REC #: [id number] [place] [id number] ADMIT DATE: SERVICE DATE: 06/30/20 Occupational Therapy Assessment ATTENDING DESEAN: Mesha Dean Mode: Explanation. Printed material provided. Response: Applied knowledge. Verbalized understanding. Demonstrated skill. Needs reinforcement. ASSESSMENT Support Structure: Support structure is good. Family member willing to assist patient. Response to Evaluation: The session was tolerated fairly, as evidenced by: Henry was upset with the residential from driving indication. PLAN Necessity: Patient does [...] minutes (Timed: 90, Untimed: 60) 90.00 Timed: [29559] OT-ADL/HOME MGT EACH 15 MIN* 60.00 Untimed: [97568] OT-EVALUATION HIGH COMPLEX Signed by: JUAN CARLOS RIVERO OT/Wendy, CDRS, CDI/PD 07/04/2020 16:07:29 [facility] PATIENT NAME: HENRY DEGROOT [address] MEDICAL REC #: [id number] [place] [address] ADMIT DATE: SERVICE DATE: 06/30/20 Occupational Therapy Assessment ATTENDING PHY: Mesha Dean [facility] CR Chest PA/LATon 04-12-2018 CR Chest PA/LAT Patient Name: HENRY DEGROOT Diagnostic Radiology Exam Date/Time 04/12/2018 13:14:04 EDT Exam CR Chest PA/LAT Ordering Physician DENNY JOSE AMANDA A. Accession Number [id number] CPT4 Codes 69660 () Reason For Exam palpitations Report CHEST: [...] Transcribed Date and Time: 04/12/2018 1:26 Normal [facility] CT Head or Brain w/o Contras ton 04-12-2018 CT Head or Brain w/o Contrast Patient Name: HENRY DEGROOT CT Exam Date/Time 04/12/2018 12:21:[address] Head or Brain w/o Contrast Ordering Physician DENNY JOSE, CAS [place] Accession Number [id number] CPT4 Codes 69005 () Reason For Exam dizzy Report CLINICAL [...] Transcribed Date and Time: 04/12/2018 12:43 Normal [facility] Comp Metabolic Panelon 04-12 Alanine aminotransferase (ALT) 21 U/L Normal 13-69 [facility] Comment on above: Performed By: #### H EMDF, CMP3, MG3, TROPN ####[facility] [employer] [id number] [place] [address] Alkaline phosphatase (ALP) 58 U/L Normal 38-126 [facility] Comment on above: Performed By: #### H EMDF, CMP3, MG3, TROPN ####[place] [id number] [place] [address] Anion gap 4 Normal [facility] Comment on above: Performed By: #### H EMDF, CMP3, MG3, TROPN ####[address] Aspartate aminotransferase (AST) 27 U/L Normal 15-46 [facility] Comment on above: Performed By: #### H EMDF, CMP3, MG3, TROPN ####[address] Calcium 9.5 mg/dL Normal 8.4-10.2 [facility] Comment on above: Performed By: #### H EMDF, CMP3, MG3, TROPN ####[address] CO2 28 mmol/L Normal 22-30 [facility] Comment on above: Performed By: #### H EMDF, CMP3, MG3, TROPN ####[address] Glucose mass conc 113 mg/dL High 70-100 [facility] Comment on above: Performed By: #### H EMDF, CMP3, MG3, TROPN ####[address] Protein 6.9 g/dL Normal 6.3-8.2 [facility] Comment on above: Performed By: #### H EMDF, CMP3, MG3, TROPN ####[address] Urea nitrogen 18 mg/dL Normal 7-20 [facility] Comment on above: Performed By: #### H EMDF, CMP3, MG3, TROPN ####[address] Bilirubin (total) 0.5 mg/dL Normal 0.2-1.3 [facility] Comment on above: Performed By: #### H EMDF, CMP3, MG3, TROPN ####[address] [place], [place] Creatinine 0.70 mg/dL Normal 0.52-1.25 [facility] Comment on above: Performed By: #### H EMDF, CMP3, MG3, TROPN ####[place] [address] [place], [place] eGFR (black) mL/min/{1.73_m2} Normal >60 [facility] Comment on above: Performed By: #### H EMDF, CMP3, MG3, TROPN ####[address] eGFR (non-black) mL/min/{1.73_m2} Normal >60 [facility] Comment on above: Result Comment: Sour ce- MDRD equation with creatinine calibration to IDMS(NKDEP) eGFR not recommended for drug dose adjustment Performed By: #### H EMDF, CMP3, MG3, TROPN ####[address] Albumin 3.8 g/dL Normal 3.5-5.0 [facility] Comment on above: Performed By: #### H EMDF, CMP3, MG3, TROPN ####[address] Chloride 107 mmol/L Normal 98-107 [facility] Comment on above: Performed By: #### H EMDF, CMP3, MG3, TROPN ####[address] Potassium molar conc 4.1 mmol/L Normal 3.5-5.1 [facility] Comment on above: Performed By: #### H EMDF, CMP3, MG3, TROPN ####[address] Sodium 140 mmol/L Normal 137-145 [facility] Comment on above: Performed By: #### H EMDF, CMP3, MG3, TROPN ####[address] Hemogram w/ Autodiffon 04-12 Abs Baso Cnt 0.0 10*3/uL Normal 0.0-0.2 [facility] Comment on above: Performed By: #### H EMDF, CMP3, MG3, TROPN ####[address] Basophils/100 WBC Auto (Bld) 0.4 % Normal 0.0-2.0 [facility] Comment on above: Performed By: #### H EMDF, CMP3, MG3, TROPN ####[address] Eosinophils 0.1 10*3/uL Normal 0.0-0.5 [facility] Comment on above: Performed By: #### H EMDF, CMP3, MG3, TROPN ####[address] Eosinophils/100 leukocytes 1.2 % Normal 1.0-6.0 [facility] Comment on above: Performed By: #### H EMDF, CMP3, MG3, TROPN ####[address] Erythrocyte distribution width Auto Ratio (RBC) 12.6 % Normal 11.5-14.5 [facility] Comment on above: Performed By: #### H EMDF, CMP3, MG3, TROPN ####[address] Erythrocytes (RBC) 4.34 10*6/uL Normal 3.80-5.20 [facility] Comment on above: Performed By: #### H EMDF, CMP3, MG3, TROPN ####[address] Granulocytes/100 WBC (Bld) 58.4 % Normal 40.0-80.0 [facility] Comment on above: Performed By: #### H EMDF, CMP3, MG3, TROPN ####[address] Hematocrit (HCT) 42.4 % Normal 35.0-47.0 [facility] Comment on above: Performed By: #### H EMDF, CMP3, MG3, TROPN ####[address] Hemoglobin mass conc (Bld) 14.7 g/dL Normal 11.7-16.0 [facility] Comment on above: Performed By: #### H EMDF, CMP3, MG3, TROPN ####[address] Lymphocytes 2.1 10*3/uL Normal 1.0-4.3 [facility] Comment on above: Performed By: #### H EMDF, CMP3, MG3, TROPN ####[address] Lymphocytes/100 leukocytes 27.3 % Normal 20.0-40.0 [facility] Comment on above: Performed By: #### H EMDF, CMP3, MG3, TROPN ####[address] MCH 33.8 pg Normal 26.0-34.0 [facility] Comment on above: Performed By: #### H EMDF, CMP3, MG3, TROPN ####[address] MCHC mass conc (RBC) 34.6 % Normal 32.0-36.0 [facility] Comment on above: Performed By: #### H EMDF, CMP3, MG3, TROPN ####[address] MCV 97.7 fL Normal 79.0-98.0 [facility] Comment on above: Performed By: #### H EMDF, CMP3, MG3, TROPN ####[address] Monocytes 1.0 10*3/uL High 0.0-0.8 [facility] Comment on above: Performed By: #### H EMDF, CMP3, MG3, TROPN ####[address] [place], [place] Monocytes/100 leukocytes 12.7 % High 2.0-10.0 [facility] Comment on above: Performed By: #### H EMDF, CMP3, MG3, TROPN ####[place] [address] [place], [place] Neutrophils 4.5 10*3/uL Normal 1.8-7.0 [facility] Comment on above: Performed By: #### H EMDF, CMP3, MG3, TROPN ####[address] Platelet mean volume (PMV) 9.3 fL Normal 7.4-10.4 [facility] Comment on above: Performed By: #### H EMDF, CMP3, MG3, TROPN ####[address] Platelets 214 10*3/uL Normal 140-440 [facility] Comment on above: Performed By: #### H EMDF, CMP3, MG3, TROPN ####[address] WBC (Leukocytes) 7.8 10*3/uL Normal 3.6-10.[address] [facility] Comment on above: Performed By: #### H EMDF, CMP3, MG3, TROPN ####[address] Magnesiumon 04-12-2018 Magnesium 2.1 mg/dL Normal 1.6-2.3 [facility] Comment on above: Performed By: #### H EMDF, CMP3, MG3, TROPN ####[address] Troponin Ion 04-12-2018 Troponin I.cardiac mass conc ng/mL Normal 0.000-0.03 4 [facility] Comment on above: Result Comment: 0.04 6 - 0.400 = Indeterminate> 0.400 = Consider Myocardial Injury Performed By: #### H EMDF, CMP3, MG3, TROPN ####[address] [place] [address] Lab Report: Lipid Profileon 10-17-2017 Cholesterol 168 mg/dL Invalid Interpretation Code 200 [employer] Work Phone: [phone] HDL Cholesterol 98 mg/dL Invalid Interpretation Code [employer] Work Phone: [phone] LDL Cholesterol 57 mg/dL Invalid Interpretation Code 0-130 [employer] Work Phone: [phone] Triglyceride 64 mg/dL Invalid Interpretation Code [employer] Work Phone: [phone] very low density lipoproteins 13 mg/dL Invalid Interpretation Code 5-40 [employer] Work Phone: [phone] Lab Report: Liver Profileon 10-17-2017 Alanine aminotransferase (ALT) 20 U/L Invalid Interpretation Code 12-78 [employer] Work Phone: [phone] Albumin 3.4 g/dL Invalid Interpretation Code 3.4-5.0 [employer] Work Phone: [phone] Alkaline phosphatase (ALP) 68 U/L Invalid Interpretation Code 45-117 [employer] Work Phone: [phone] Aspartate aminotransferase (AST) 19 U/L Invalid Interpretation Code 15-37 [employer] Work Phone: [phone] Bilirubin (direct) 0.16 mg/dL Invalid Interpretation Code 0.00-0.30 [employer] Work Phone: [phone] Bilirubin (total) 0.70 mg/dL Invalid Interpretation Code 0.20-1.00 [employer] Work Phone: [phone] Globulin 3.5 g/dL Invalid Interpretation Code 2.2-4.2 [employer] Work Phone: [phone] Protein 6.9 g/dL Invalid Interpretation Code 6.4-8.2 [employer] Work Phone: [phone] Office Visiton 08-05-2017 Documentation of current medications (procedure) Done Invalid Interpretation Code [employer] Phone: [phone] Protein mass conc Done Invalid Interpretation Code [employer] Work Phone: Chart Maintenanceon 08-01-20 17 Left ventricular Ejection fraction 50 % Invalid Interpretation Code [employer] Work Phone: VL ARTERIAL BILATERAL LOWER EXT [...] angiography if clinically warranted. Interpreted By: Facundo Terviñoreliminary Report By: Facundo Treviño MDElectronically Signed By: Facundo Treviño MD Dictated Date: 05/16/2017 2:33:13 PM Prelim Date: 05/16/2017 2:33:13 PM Sign Date: 05/16/2017 2:47:04 PM Normal [facility] Office Visiton 04-25-2017 Documentation of current medications (procedure) Done Invalid Interpretation Code [employer] Work Phone: Protein mass conc Done [employer] Work Phone: Lab Report: Lipid Profileon 04-17-2017 Cholesterol in HDL mass conc 83 mg/dL Invalid Interpretation Code [employer] Work Phone: Cholesterol in LDL mass conc 67 mg/dL Invalid Interpretation Code 0-130 [employer] Work Phone: Cholesterol mass conc 162 mg/dL Invalid Interpretation Code 200 [employer] Work Phone: [phone] Lipoprotein.pre-beta mass conc 12 mg/dL Invalid Interpretation Code 5-40 [facility] [employer] Work Phone: [phone] Triglyceride mass conc 62 mg/dL Invalid Interpretation Code [facility] [employer] Work Phone: [phone] Lab Report: Liver Profileon 04-17-2017 Albumin mass conc 3.5 g/dL Invalid Interpretation Code 3.4-5.0 [facility] Work Phone: [phone] Alkaline phosphatase (ALP) 56 U/L Invalid Interpretation Code 45-117 [facility] [employer] Work Phone: [phone] ALP enzyme act/vol (Bld) 56 U/L Invalid Interpretation Code 45-117 [facility] [employer] Work Phone: [phone] ALT enzyme act/vol 32 U/L Invalid Interpretation Code 12-78 [facility] [employer] Work Phone: [phone] AST enzyme act/vol 26 U/L Invalid Interpretation Code 15-37 [facility] [employer] Work Phone: [phone] Bilirubin mass conc 0.70 mg/dL Invalid Interpretation Code 0.20-1.00 [facility] [employer] Work Phone: [phone] Bilirubin.direct mass conc 0.19 mg/dL Invalid Interpretation Code 0.00-0.30 [facility] [employer] Work Phone: [phone] Globulin 3.6 g/dL High 2.3-3.5 [facility] [employer] Work Phone: [phone] Globulin mass conc (S) 3.6 g/dL High 2.3-3.5 [facility] [employer] Work Phone: [phone] Protein mass conc 7.1 g/dL Invalid Interpretation Code 6.4-8.2 [facility] [employer] Work Phone: [phone] Lab Report: T4 Total, Thyrox inon 10-22-2016 Thyroxine (T4) 13.9 ug/dL Invalid Interpretation Code 4.8-13.9 [facility] [employer] Work Phone: [phone] Lab Report: Thyroid Stim Hor jaylyn (TSH)on 10-22-2016 Thyroid stimulating hormone (TSH) 0.97 u[iU]/mL Invalid Interpretation Code 0.358-3.74 [facility] Work Phone: [phone] Lab Report: Lipid Profileon 10-15-2016 Cholesterol 175 mg/dL 200 [facility] Work Phone: [phone] HDL Cholesterol 84 mg/dL [employer] Work Phone: [phone] LDL Cholesterol 76 mg/dL 0-130 [facility] [employer] Work Phone: [phone] Triglyceride 76 mg/dL [employer] Work Phone: [phone] very low density lipoproteins 15 mg/dL 5-40 [facility] Work Phone: [phone] Lab Report: Liver Profileon 10-15-2016 Alanine aminotransferase (ALT) 28 U/L 12-78 [facility] Work Phone: [phone] Albumin 3.6 g/dL 3.4-5.0 [facility] Work Phone: [phone] Alkaline phosphatase (ALP) 55 U/L Invalid Interpretation Code 45-117 [facility] Work Phone: [phone] ALP enzyme act/vol (Bld) 55 U/L 45-117 [facility] Work Phone: [phone] Aspartate aminotransferase (AST) 23 U/L 15-37 [facility] Work Phone: [phone] Bilirubin (direct) 0.18 mg/dL 0.00-0.30 [facility] Work Phone: [phone] Bilirubin (total) 0.70 mg/dL 0.20-1.00 [facility] Work Phone: [phone] Globulin 3.7 g/dL High 2.3-3.5 [facility] Work Phone: [phone] Globulin mass conc (S) 3.7 g/dL High 2.3-3.5 [facility] Work Phone: [phone] Protein 7.3 g/dL 6.4-8.2 [facility] Work Phone: [phone] Office Visiton 10-15-2016 Documentation of current medications (procedure) Done Invalid Interpretation Code [facility] Work Phone: Protein mass conc Done [facility] Work Phone: [phone] Tobacco smoking status NHIS Tobacco smoking status NHIS Invalid Interpretation Code [facility] Work Phone: [phone] Tobacco smoking status NHIS Never smoker Invalid Interpretation Code [facility] Work Phone: [phone] Tobacco use CP Never smoker Invalid Interpretation Code [facility] Work Phone: [phone] Replaced Document: Bruce Altamirano 10-15-2016 EKG QRS axis 22 deg Invalid Interpretation Code [facility] Work Phone: [phone] electrocardiogram interpretation Sinus Rhythm Low voltage in precordial leads. ABNORMAL Invalid Interpretation Code [facility] Work Phone: [phone] GE use only - for [employer] import when terms are not otherwise specified 443 ms Invalid Interpretation Code [facility] Work Phone: [phone] Interpretation Sinus Rhythm Low voltage in precordial leads. ABNORMAL Invalid Interpretation Code [facility] Work Phone: [phone] P [place] 60 deg Invalid Interpretation Code [facility] Work Phone: [phone] P wave axis, electrocardiogram 60 deg Invalid Interpretation Code [facility] Work Phone: [phone] NV Interval 200 ms Invalid Interpretation Code [facility] Work Phone: [phone] NV interval, electrocardiogram 200 ms Invalid Interpretation Code [facility] Work Phone: [phone] Pulse (Heart Rate) 63 /min Invalid Interpretation Code [facility] Work Phone: [phone] QRS axis, electrocardiogram 22 deg Invalid Interpretation Code [facility] Work Phone: [phone] QRS Duration 84 ms Invalid Interpretation Code [facility] Work Phone: [phone] QRS duration, electrocardiogram 84 ms Invalid Interpretation Code [facility] Work Phone: [phone] QT Interval new path ms Invalid Interpretation Code [facility] Work Phone: [phone] QT interval, electrocardiogram new path ms Invalid Interpretation Code [facility] Work Phone: [phone] QTc Harris 443 ms Invalid Interpretation Code [facility] Work Phone: T [place] 26 deg Invalid Interpretation Code [facility] Work Phone: [phone] T wave axis, electrocardiogram 26 deg Invalid Interpretation Code [facility] Work Phone: [phone] Lab Report: CBC W/Diff, Auto - EPLAB Onlyon 06-28-2016 Basophils/100 leukocytes 0.8 % Invalid Interpretation Code 0-1 [facility] Work Phone: [phone] Basophils/100 WBC (Bld) 0.8 % 0-1 [facility] Work Phone: [phone] Eosinophils/100 leukocytes 1.0 % Invalid Interpretation Code 0-5 [facility] Work Phone: [phone] Eosinophils/100 WBC (Bld) 1.0 % 0-5 [facility] Work Phone: [phone] Erythrocyte distribution width Ratio (RBC) 11.5 % Low 11.6-14.6 [employer] Work Phone: [phone] Erythrocytes (RBC) 4.52 10*6/uL Invalid Interpretation Code 4.2-5.4 [employer] Work Phone: [phone] Hematocrit (HCT) 44.6 % Invalid Interpretation Code 37-47 [facility] Work Phone: [phone] Hematocrit Volume Fraction (Bld) 44.6 % 37-47 [employer] Work Phone: [phone] Hemoglobin (HGB) 15.1 g/dL High 12.0-15.0 [employer] Work Phone: [phone] Lymphocytes 2.37 X10 3/UL Invalid Interpretation Code 0.83-4.51 [employer] Work Phone: [phone] Lymphocytes #/vol (Bld) 2.37 X10 3/UL 0.83-4.51 [facility] Work Phone: [phone] Lymphocytes/100 leukocytes 23.4 % Invalid Interpretation Code 19-41 [employer] Work Phone: [phone] Lymphocytes/100 WBC (Bld) 23.4 % - [employer] Work Phone: [phone] MCH 33.3 pg High 27.0-32.0 [facility] Work Phone: [phone] MCH Entitic mass (RBC) 33.3 pg [...] MCV Entitic volume (RBC) 98.6 fL 81-99 [facility] Work Phone: [phone] Monocytes/100 leukocytes 8.2 % Invalid Interpretation Code 0-10 [facility] Work Phone: [phone] Monocytes/100 WBC (Bld) 8.2 % 0-10 [facility] Work Phone: [phone] neutrophil count, blood 6.8 X10 3/UL Invalid Interpretation Code 2.0-7.7 [facility] Work Phone: [phone] Neutrophils #/vol (Bld) 6.8 X10 3/UL 2.0-7.7 [facility] Work Phone: [phone] Neutrophils Auto #/vol (Bld) 6.8 X10 3/UL Invalid Interpretation Code 2.0-7.7 [facility] Work Phone: [phone] Neutrophils/100 leukocytes 66.7 % Invalid Interpretation Code 47-70 [facility] Work [phone] Neutrophils/100 WBC (Bld) 66.7 % 47-70 [facility] Work Phone: [phone] Platelet mean volume Entitic volume (Bld) 8.9 fL 6.2-12.0 [facility] Work Phone: [phone] Platelets 149 10*3/mm3 Low 150-450 [facility] Work Phone: [phone] Platelets #/vol (Bld) 149 10*3/mm3 Low 150-450 [facility] Work Phone: [phone] PMV by Sanjiv-Aleisha 8.9 fL Invalid Interpretation Code 6.2-12.0 [employer] Work Phone: [phone] RBC #/vol (Bld) 4.52 10*6/uL 4.2-5.4 [employer] Work Phone: [phone] RDW-CA 11.5 % Low 11.6-14.6 [employer] Work Phone: [phone] WBC #/vol (Bld) 10.2 10*3/uL 4.4-11.0 [employer] Work Phone: [phone] WBC (Leukocytes) 10.2 10*3/uL Invalid Interpretation Code 4.4-11.0 [employer] Work Phone: [phone] Lab Report: [facility] 06-28-2016 Albumin/Globulin Ratio 0.9 {ratio} Invalid Interpretation Code 0.9-2.4 [employer] Work Phone: [phone] Anion gap 8 mmol/L Invalid Interpretation Code 5-15 [employer] Work Phone: [phone] Anion gap 4 molar conc 8 Invalid Interpretation Code 5-15 [employer] Work Phone: [phone] Anion gap molar conc 8 mmol/L 5-15 [employer] Work Phone: [phone] BUN/Creatinine Ratio 20.8 RATIO High 10-20 [employer] Work Phone: [phone] Calcium 9.0 mg/dL Invalid Interpretation Code 8.5-10.1 [employer] Work Phone: [phone] Chloride 105 mmol/L Invalid Interpretation Code 98-107 [employer] Work Phone: [phone] CO2 24.0 mmol/L Invalid Interpretation Code 21.0-32.0 [employer] Work Phone: [phone] CO2 ppres (BldV) 24.0 mmol/L Invalid Interpretation Code 21.0-32.0 [employer] Work Phone: [phone] Creatinine 0.87 mg/dL Invalid Interpretation Code 0.55-1.20 [employer] Work Phone: [phone] eGFR (non-black) 82 mL/min/{1.73_m2} Invalid Interpretation Code >60 [facility] Work Phone: [phone] eGFR (non-black) 68 mL/min/{1.73_m2} Invalid Interpretation Code >60 [facility] Work Phone: [phone] EST GFR - AA 82 mL/min Invalid Interpretation Code >60 [facility] Work Phone: [phone] Glucose 96 mg/dL Invalid Interpretation Code 70-110 [facility] Work Phone: [phone] Glucose mass conc 96 mg/dL Invalid Interpretation Code 70-110 [facility] Work Phone: [phone] Potassium 4.5 mmol/L Invalid Interpretation Code 3.5-5.1 [facility] Work Phone: [phone] Sodium 137 mmol/L Invalid Interpretation Code 136-145 [facility] Work Phone: [phone] Urea nitrogen 18 mg/dL Invalid Interpretation Code 7-18 [facility] Work Phone: [phone] Lab Report: LDHon 06-28-2016 lactate dehydrogenase - serum 233 U/L Invalid Interpretation Code 84-246 [facility] Work Phone: [phone] LDH 233 U/L Invalid Interpretation Code 84-246 [facility] Work Phone: [phone] Lab Report: Magnesiumon 06-05 Magnesium 2.0 mg/dL Invalid Interpretation Code 1.8-2.4 [facility] Work Phone: [phone] Lab Report: Uric Acidon 06-05 Urate 4.0 mg/dL Invalid Interpretation Code 2.6-6.0 [facility] Work Phone: [phone] Clinical Lists Update: Prelo community relations representative 02-17-2016 Left ventricular Ejection fraction 50 % [facility] Work Phone: [phone] Lab Report: ECBCDon 06-02-20 14 Absolute Neutrophil count 6.5 X10 3/UL Normal 2.0-7.7 [facility] Work Phone: [phone] ANC 6.5 X10 3/UL Normal 2.0-7.7 [facility] Work Phone: Vital Signs Date Time Vital Sign Value Performing Clinician Facility 09-30-2024 15:44-0500 Diastolic blood pressure 62 mm[Hg] Linus Fuchs MD Work Phone: [facility] 09-30-2024 15:44-0500 Heart rate 80 /min Linus Fuchs MD Work Phone: [facility] 09-30-2024 15:44-0500 Respiratory rate 20 /min Linus Fuchs MD Work Phone: [facility] 09-30-2024 15:44-0500 SaO2% (BldA) [Mass fraction] 100 % Linus Fuchs MD Work Phone: [facility] 09-30-2024 15:44-0500 Systolic blood pressure 110 mm[Hg] Linus Fuchs MD Work Phone: [facility] 09-30-2024 12:51-0500 Body temperature 98.1 [degF] Linus Fuchs MD Work Phone: [facility] 09-28-2024 11:00-0500 Body temperature 97.88 [degF] ИВАН LOPEZ DO [facility] 09-28-2024 11:00-0500 Diastolic Blood Pressure Non-Invasive 66 mm[Hg] ИВАН LOPEZ DO [facility] 09-28-2024 11:00-0500 Heart rate 64 /min ИВАН LOPEZ DO [facility] 09-28-2024 11:00-0500 Reason For Taking VItal Signs ИВАН LOPEZ DO [facility] 09-28-2024 11:00-0500 Respiratory rate 16 /min ИВАН LOPEZ DO [facility] 09-28-2024 11:00-0500 Systolic Blood Pressure Non-Invasive 112 mm[Hg] ИВАН LOPEZ DO [facility] 03-25-2024 11:20-0400 Body temperature 98.24 [degF] ИВАН LOPEZ DO [facility] 03-25-2024 11:20-0400 Diastolic Blood Pressure Non-Invasive 74 mm[Hg] ИВАН LOPEZ DO [facility] 03-25-2024 11:20-0400 Heart rate 72 /min ИВАН LOPEZ DO [facility] 03-25-2024 11:20-0400 Respiratory rate 18 /min ИВАН LOPEZ DO [facility] 03-25-2024 11:20-0400 Systolic Blood Pressure Non-Invasive 112 mm[Hg] ИВАН LOPEZ DO [facility] 11-29-2023 16:07-0500 Body temperature 98 [degF] [facility] 11-29-2023 16:07-0500 Diastolic blood pressure 60 mm[Hg] [facility] 11-29-2023 16:07-0500 Heart rate 80 /min [facility] 11-29-2023 16:07-0500 Respiratory rate 16 /min [facility] 11-29-2023 16:07-0500 Systolic blood pressure 116 mm[Hg] [facility] 11-29-2023 15:00-0500 SaO2% (BldA) [Mass fraction] 100 % [facility] 11-29-2023 11:11-0500 Body mass index (BMI) [Ratio] 30.7 kg/m2 [facility] 11-29-2023 11:11-0500 Body weight 78.5 kg [facility] 11-29-2023 10:56-0500 Body height 160.02 cm [facility] 09-24-2023 10:42-0500 Blood Pressure Location ИВАН LOPEZ DO [facility] 09-24-2023 10:42-0500 Blood Pressure Method ИВАН LOPEZ DO [facility] 09-24-2023 10:42-0500 Body temperature 97.34 [degF] ИВАН LOPEZ DO [facility] 09-24-2023 10:42-0500 Diastolic Blood Pressure Non-Invasive 64 mm[Hg] ИВАН JESSICA DO [facility] 09-24-2023 10:42-0500 Heart rate 70 /min ИВАН JESSICA DO [facility] 09-24-2023 10:42-0500 Reason For Taking VItal Signs ИВАН JESSICA [facility] 09-24-2023 10:42-0500 Respiratory rate 18 /min ИВАН LOPEZ DO [facility] 09-24-2023 10:42-0500 Systolic Blood Pressure Non-Invasive 125 mm[Hg] ИВАН LOPEZ DO [facility] 08-05-2017 08:34-0400 BMI (Body Mass Index) 26.26 [...] 08:34-0400 Respiratory Rate 16 /min [facility] Work Phone: 08-05-2017 08:34-0400 Weight 69.4 kg [facility] Work Phone: 04-25-2017 14:23-0400 BP Diastolic 64 mm[Hg] [facility] Work Phone: 04-25-2017 14:23-0400 BP Systolic 148 mm[Hg] [facility] Work Phone: 04-25-2017 14:23-0400 Height 162.56 cm [facility] Work Phone: 04-25-2017 14:23-0400 Pulse (Heart Rate) 66 /min [facility] Work Phone: 04-25-2017 14:23-0400 Respiratory Rate 18 /min [facility] Work Phone: 10-15-2016 14:26-0500 Heart rate 63 /min Augusto Carter MD [facility] Work Phone: 10-15-2016 13:41-0500 BMI (Body Mass Index) 26.77 kg/m2 Augusto Carter MD [facility] Work Phone: 10-15-2016 13:41-0500 BP Diastolic 92 mm[Hg] Augusto Carter MD [facility] Work Phone: 10-15-2016 13:41-0500 BP Systolic 150 mm[Hg] Augusto Carter MD [facility] Work Phone: 10-15-2016 13:41-0500 BSA (Body Surface Area) 1.76 m2 Augusto Carter MD [facility] Work Phone: 10-15-2016 13:41-0500 Height 162.56 cm Augusto Carter MD [facility] Work Phone: 10-15-2016 13:41-0500 Pulse (Heart Rate) 66 /min Augusto Carter MD [facility] Work Phone: 10-15-2016 13:41-0500 Respiratory Rate 16 /min Augusto Carter MD [facility] Work Phone: 10-15-2016 13:41-0500 Weight 70.76 kg Augusto Carter MD [facility] Work Phone: 06-28-2016 13:23-0400 Body Temperature 97.2 [degF] Augusto Carter MD [facility] Work Phone: 06-28-2016 13:23-0400 Height 162.56 cm Augusto Carter MD [facility] Work Phone: 06-28-2016 13:23-0400 Pulse Oximetry 96 % Augusto Carter MD [facility] Work Phone: 06-28-2016 13:23-0400 Weight 76.73 kg Augusto Carter MD [facility] Work Phone: 03-23-2016 11:13-0400 Pulse Oximetry 93 % Augusto Carter MD [facility] Work Phone: Encounters Encounter Date Encounter Type Care Provider Facility Start: 09-05-2025 End: 09-05-2025 Emergency department patient visit Иван Lopez Facility:[facility] Start: 08-26-2025 ambulatory ИВАН LOPEZ DO Facil ity[facility] Start: 06-15-2025 End: 06-19-2025 ambulatory ИВАН LOPEZ DO [facility] Start: 06-15-2025 End: 06-19-2025 Outreach Lab [employer] [facility] Start: 06-14-2025 End: 06-18-2025 ambulatory ИВАН LOPEZ DO [facility] Start: 06-14-2025 End: 06-18-2025 Outreach Lab [employer] [facility] Start: 03-31-2025 End: 03-31-2025 ambulatory ИВАН LOPEZ DO [facility] Start: 03-31-2025 End: 03-31-2025 SAME DAY STAY ИВАН LOPEZ DO [facility] Start: 02-26-2025 End: 03-02-2025 ambulatory ИВАН LOPEZ DO [facility] Start: 02-26-2025 End: 03-02-2025 Outreach Lab ИВАН LOPEZ DO [facility] Start: 02-19-2025 End: 02-19-2025 ambulatory ИВАН LOPEZ DO [facility] Start: 12-23-2024 End: 12-23-2024 ambulatory Иван Lopez Facility[facility] Start: 11-18-2024 End: 11-18-2024 ambulatory Иван Lopez Facility:[facility] Start: 10-07-2024 End: 10-11-[address] RAMEZ BRUSH DO [facility] Start: 10-07-2024 End: 10-11-[address] RAMEZ BRUSH DO [facility] Start: 10-06-2024 End: 10-10-2024 ambulatory ИВАН LOPEZ DO [facility] Start: 10-06-2024 End: 10-10-[address] RAMEZ BRUSH DO [facility] Start: 09-30-2024 End: 09-30-2024 Emergency department patient visit Linus Fuchs MD Work Phone: [facility] Comment on above: Closed head injury, initial encounter (Primary Dx); Fall, initial encounter; Vasovagal syncope Start: 09-28-2024 ambulatory Tai Krishna Facility:[facility] Start: 09-28-2024 End: 09-28-2024 SAME DAY STAY ИВАН JESSICA DO [facility] Start: 09-28-2024 End: 09-28-2024 ambulatory ИВАН ALEXANDRAY DO [facility] Start: 09-21-2024 End: 09-21-2024 ambulatory Иван Jessica Facility:[facility] Start: 03-25-2024 End: 03-25-2024 ambulatory ИВАНVERN ALEXANDRAY DO Facility:[facility] Start: 03-25-2024 End: 03-25-2024 SAME DAY STAY ИВАН ALEXANDRAY DO [facility] Start: 03-17-2024 End: 03-18-2024 ambulatory ИВАН ALEXANDRAY DO Facility:[facility] Start: 03-17-2024 End: 03-17-2024 Patient encounter procedure ИВАН RICHARDSONLAY DO [facility] Start: 03-04-2024 End: 03-09-2024 ambulatory ИВАН LOPEZ DO Facility:[facility] Start: 03-04-2024 End: 03-08-2024 Outreach Lab ИВАН LOPEZ DO [facility] Start: 02-04-2024 End: 02-05-2024 ambulatory ИВАН ALEXANDRAY DO Facility:[facility] Start: 02-04-2024 End: 02-04-2024 Patient encounter procedure ИВАН RICHARDSONLAY DO [facility] Start: 01-13-2024 End: 01-14-2024 ambulatory ИВАН ALEXANDRAY DO Facility:[facility] Start: 01-13-2024 End: 01-13-2024 Patient encounter procedure ИВАНVERN RICHARDSONLAY DO [facility] Start: 11-29-2023 End: 11-29-2023 Emergency department patient visit [facility] Work Phone: Start: 09-24-2023 End: 09-24-2023 ambulatory ИВАН LOPEZ DO Facility:[facility] Start: 09-24-2023 End: 09-24-2023 SAME DAY STAY ИВАН LOPEZ DO [facility] Start: 11-30-2022 End: 12-04-2022 Outreach Lab JHON HOOD DO [facility] Start: 11-24-2022 End: 11-28-2022 Outreach Lab JHON HOOD DO [facility] Start: 08-23-2022 End: 08-27-2022 Outreach Lab ИВАН LOPEZ DO [facility] Start: 02-02-2022 End: 02-02-2022 Patient encounter procedure ИВАН LOPEZ DO [facility] Start: 10-23-2021 End: 10-23-2021 Patient encounter procedure ИВАН LOPEZ DO [facility] Start: 04-12-2018 Emergency department patient visit UNKNOWN PROVIDER [facility] Start: 05-16-2017 [address]ulatory [facility] Facility: [facility] Date Procedure Procedure Detail Performing Clinician Start: [...] DTaP/Tdap/Td Vaccines (2 - Td or Tdap) [facility] Start: 11-29-2023 [facility] Start: 11-04-2023 Medicare Advantage Annual Wellness Visit Medicare Advantage Annual Wellness Visit [facility] Start: 02-24-2018 End: 02-24-2018 Appointment Appointment [facility] Work Phone: Start: 10-17-2017 End: 04-17-2017 *Hepatic Function Panel *Hepatic Function Panel [facility] Work Phone: Start: 10-17-2017 End: 04-17-2017 Lipid 1996 panel *Lipid Profile CC PCP [facility] Work Phone: Start: 10-17-2017 End: 10-17-2017 *Hepatic Function Panel *Hepatic Function Panel [facility] Work Phone: Start: 10-17-2017 End: 10-17-2017 Lipid panel [AGGREGATE] *Lipid Profile CC PCP [facility] Work Phone: Start: 08-05-2017 End: 08-05-2017 RUTHANN BEAVERS [facility] Work Phone: Start: 08-05-2017 End: 08-05-2017 Follow Up Appt 6 months Follow Up Appt 6 months [facility] Work Phone: Start: 08-05-2017 End: 08-05-2017 Appointment Appointment [facility] Work Phone: Start: 08-05-2017 End: 08-05-2017 RUTHANN BEAVERS [facility] Work Phone: Start: 08-05-2017 End: 08-05-2017 Follow Up Appt 6 months Follow Up Appt 6 months [facility] Work Phone: Start: 07-29-2017 End: 07-29-2017 Appointment Appointment [facility] Work Phone: Start: 04-25-2017 End: 04-25-2017 RUTHANN BEAVERS [facility] Work Phone: Start: 04-25-2017 End: 04-25-2017 Follow Up Appt 3 months Follow Up Appt 3 months [facility] Work Phone: Start: 04-25-2017 End: 04-25-2017 Venous doppler Venous doppler [facility] Work Phone: Start: 04-25-2017 End: 04-25-2017 Appointment Appointment [facility] Work Phone: Start: 04-25-2017 End: 04-25-2017 Appointment Appointment [facility] Work Phone: Start: 04-25-2017 End: 04-25-2017 RUTHANN BEAVERS [facility] Work Phone: Start: 04-25-2017 End: 04-25-2017 Follow Up Appt 3 months Follow Up Appt 3 months [facility] Work Phone: Start: 04-25-2017 End: 04-25-2017 Venous doppler Venous doppler [facility] Work Phone: Start: 04-15-2017 End: 04-17-2017 *Hepatic Function Panel *Hepatic Function Panel [facility] Work Phone: Start: 04-15-2017 End: 04-17-2017 Lipid 1996 panel *Lipid Profile CC PCP [facility] Work Phone: Start: 04-15-2017 End: 04-17-2017 *Hepatic Function Panel *Hepatic Function Panel [facility] Work Phone: Start: 04-15-2017 End: 04-17-2017 Lipid panel [AGGREGATE] *Lipid Profile CC PCP [facility] Work Phone: Start: 10-15-2016 End: 10-15-2016 DJN DJN [facility] Work Phone: Start: 10-15-2016 End: 10-15-2016 Ecg routine ecg w/least 12 lds w/i&r EKG (In office) [facility] Work Phone: Start: 10-15-2016 End: 10-15-2016 Follow Up Appt 6 months Follow Up Appt 6 months [facility] Work Phone: Start: 10-15-2016 End: 10-15-2016 T4 mass conc *T4 (Total) [facility] Work Phone: Start: 10-15-2016 End: 10-15-2016 Thyrotropin Qn *TSH [facility] Work Phone: Start: 10-15-2016 End: 10-15-2016 DJN PATRICIAN [employer] Work Phone: Start: 10-15-2016 End: 10-15-2016 Electrocardiogram, complete EKG (In office) [employer] Work Phone: Start: 10-15-2016 End: 10-15-2016 Follow Up Appt 6 months Follow Up Appt 6 months [facility] Work Phone: Start: 10-15-2016 End: 10-15-2016 Thyroid stimulating hormone (TSH) *TSH [facility] Work Phone: Start: 10-15-2016 End: 10-15-2016 Thyroxine (T4) *T4 (Total) [facility] Work Phone: Start: 10-05-2016 End: 10-15-2016 *Hepatic Function Panel *Hepatic Function Panel [facility] Work Phone: Start: 10-05-2016 End: 10-15-2016 Lipid 1996 panel *Lipid Profile CC PCP [facility] Work Phone: Start: 10-05-2016 End: 10-15-2016 *Hepatic Function Panel *Hepatic Function Panel [facility] Work Phone: Start: 10-05-2016 End: 10-15-2016 Lipid panel [AGGREGATE] *Lipid Profile CC PCP [facility] Work Phone: Start: 08-27-2016 End: 08-27-2016 Follow up Appt 1x/week Follow up Appt 1x/week [facility] Work Phone: Start: 08-27-2016 End: 08-27-2016 Follow up Appt 1x/week Follow up Appt 1x/week [facility] Work Phone: Start: 08-20-2016 End: 08-20-2016 Follow up Appt 1x/week Follow up Appt 1x/week [facility] Work Phone: Start: 08-20-2016 End: 08-20-2016 Follow up Appt 1x/week Follow up Appt 1x/week [facility] Work Phone: Start: 08-16-2016 End: 08-16-2016 Follow up Appt 1x/week Follow up Appt 1x/week [facility] Work Phone: Start: 08-16-2016 End: 08-16-2016 Follow up Appt 1x/week Follow up Appt 1x/week [facility] Work Phone: Start: 08-13-2016 End: 08-13-2016 Follow up Appt 2x/week Follow up Appt 2x/week [facility] Work Phone: Start: 08-13-2016 End: 08-13-2016 Follow up Appt 2x/week Follow up Appt 2x/week [facility] Work Phone: Start: 08-09-2016 End: 08-09-2016 Follow up Appt 2x/week Follow up Appt 2x/week [facility] Work Phone: Start: 08-09-2016 End: 08-09-2016 Follow up Appt 2x/week Follow up Appt 2x/week [facility] Work Phone: Start: 08-07-2016 End: 08-07-2016 Follow up Appt 3x/week Follow up Appt 3x/week [facility] Work Phone: Start: 08-06-2016 End: 08-07-2016 Follow up Appt 3x/week Follow up Appt 3x/week [facility] Work Phone: Start: 08-06-2016 End: 08-06-2016 Follow up Appt 3x/week Follow up Appt 3x/week [facility] Work Phone: Start: 08-02-2016 End: 08-06-2016 Follow up Appt 3x/week Follow up Appt 3x/week [facility] Work Phone: Start: 08-02-2016 End: 08-06-2016 Follow up Appt 3x/week Follow up Appt 3x/week [facility] Work Phone: Start: 07-30-2016 End: 07-30-2016 Follow up Appt 3x/week Follow up Appt 3x/week [facility] Work Phone: Start: 07-30-2016 End: 07-30-2016 Follow up Appt 3x/week Follow up Appt 3x/week [facility] Work Phone: Start: 07-24-2016 End: 07-24-2016 Follow up Appt 3x/week Follow up Appt 3x/week [facility] Work Phone: Start: 07-24-2016 End: 07-24-2016 Follow up Appt 3x/week Follow up Appt 3x/week [facility] Work Phone: Start: 06-28-2016 End: 05-08-2016 *CBC with Differential *CBC with Differential [facility] Work Phone: Start: 06-28-2016 End: 05-08-2016 *CMP Complete Metabolic Panel *CMP Complete Metabolic Panel [facility] Work Phone: Start: 06-28-2016 End: 05-08-2016 LDH enzyme act/vol *LDH -LDH (Lactate Dehydrogenase) [facility] Work Phone: Start: 06-28-2016 End: 05-08-2016 Magnesium mass conc *Magnesium [facility] Work Phone: Start: 06-28-2016 End: 05-08-2016 Urate mass conc *Uric Acid Blood [facility] Work Phone: Start: 06-28-2016 End: 05-08-2016 *CBC with Differential *CBC with Differential [facility] Work Phone: Start: 06-28-2016 End: [...] stress test -Lexiscan Nuclear stress test -Lexiscan [facility] Work Phone: Start: 05-28-2016 End: 05-28-2016 Nuclear stress test -Lexiscan Nuclear stress test -Lexiscan [facility] Work Phone: Start: 04-06-2016 End: 04-05-2016 *Hepatic Function Panel *Hepatic Function Panel [facility] Work Phone: Start: 04-06-2016 End: 04-05-2016 Lipid 1996 panel *Lipid Profile CC PCP [facility] Work Phone: Start: 04-06-2016 End: 04-05-2016 T4 mass conc *T4 (Total) [facility] Work Phone: Start: 04-06-2016 End: 04-05-2016 Thyrotropin Qn *TSH [facility] Work Phone: Start: 04-06-2016 End: 04-05-2016 *Hepatic Function Panel *Hepatic Function Panel [facility] Work Phone: Start: 04-06-2016 End: 04-05-2016 Lipid panel [AGGREGATE] *Lipid Profile CC PCP [facility] Work Phone: Start: 04-06-2016 End: 04-05-2016 Thyroid stimulating hormone (TSH) *TSH [facility] Work Phone: Start: 04-06-2016 End: 04-05-2016 Thyroxine (T4) *T4 (Total) [facility] Work Phone: Start: 03-23-2016 End: 03-23-2016 RUTHANN BEAVERS [facility] Work Phone: Start: 03-23-2016 End: 03-23-2016 Follow Up Appt 6 months Follow Up Appt 6 months [facility] Work Phone: Start: 03-23-2016 End: 03-23-2016 Follow Up BP Check Follow Up BP Check [facility] Work Phone: Start: 03-23-2016 End: 03-23-2016 RUTHANN BEAVERS [facility] Work Phone: Start: 03-23-2016 End: 03-23-2016 Follow Up Appt 6 months Follow Up Appt 6 months [facility] Work Phone: Start: 03-23-2016 End: 03-23-2016 Follow Up BP Check Follow Up BP Check [facility] Work Phone: Start: 2015 RSV Immunization for Adults (1 - 1-dose 75+ series) RSV Immunization for Adults (1 - 1-dose 75+ series) [facility] Start: 1952 Depression Monitoring Depression Monitoring [facility] Start: 1940 Screening for osteoporosis Bone Density Scan [facility] Patient Education [facility] Work Phone: Patient referral [facility] Work Phone: Immunizations Immunization Date Immunization Notes Care Provider Patricia tee 09-24-2024 influenza virus vacc ine, unspecified formulation ИВАН LOPEZ DO [facility] 09-24-2024 zoster vaccine recombinant ИВАН LOPEZ DO [facility] 07-21-2024 SARS-CoV-2 (COVID-19 ) [id number] ИВАН LOPEZ DO [facility] Comment on above: Result Comment: 2023: [id number] 10-01-2023 tetanus toxoid, redu edita diphtheria toxoid, and acellular pertussis vaccine, adsorbed ИВАН LOPEZ DO [facility] 09-27-2023 zoster vaccine recombinant ИВАН LOPEZ DO [facility] 09-23-2023 influenza virus vacc ine, unspecified formulation ИВАН LOPEZ DO [facility] 09-18-2023 SARS-CoV-2 (COVID-19 ) [id number] ИВАН LOPEZ DO [facility] 08-23-2022 COVID-19, mRNA, LNP- S, bivalent booster, PF, 30 mcg/0.3 mL dose; Translations: [Scholrly COVID-19 (12y+) Bivalent Booster Vaccine PF] ИВАН LOPEZ DO [facility] 08-23-2022 influenza, high dose seasonal, preservative-free ИВАН JESSICA DO [facility] 08-23-2022 SARSCoV2 mRNA([id number]+)biv al vac; Translations: [Pfizer-BioNTech COVID-19 (12y+) Bivalent Booster Vaccine PF] ИВАН JESSICA DO [facility] 09-07-2021 COVID-19, mRNA, LNP- S, PF, 30 mcg/0.3 mL dose; Translations: [Pfizer-BioNTech COVID-19 Vaccine] ИВАН JESSICA DO [facility] 08-11-2021 influenza, high dose seasonal, preservative-free; Translations: [Fluad Quadrivalent PF ] ИВАН LOPEZ DO [facility] 01-31-2021 SARS-CoV-2 mRNA (tozinameran) vaccine ИВАН LOPEZ DO [facility] 01-10-2021 SARS-CoV-2 mRNA (tozinameran) vaccine ИВАН LOPEZ DO [facility] Comment on above: Result Comment: 2020: [id number] 09-09-2020 influenza, injectabl e, quadrivalent, preservative free; Translations: [Fluarix PF Quadrivalent ] ИВАН LOPEZ DO [facility] 09-03-2019 influenza, injectabl e, quadrivalent, preservative free; Translations: [Fluarix PF Quadrivalent ] ИВАН LOPEZ DO [facility] 08-11-2018 influenza virus vacc ine, unspecified formulation ИВАН LOPEZ DO [facility] 08-22-2017 Influenza virus vaccine [facility] 08-22-2017 influenza virus vacc ine, unspecified formulation ИВАН RICHARDSONLAY DO [facility] 08-14-2016 influenza virus vacc ine, unspecified formulation ИВАН JESSICA DO [facility] 07-19-2015 influenza virus vacc ine, unspecified formulation ИВАН RICHARDSONLAY DO [facility] 07-19-2015 pneumococcal conjuga te vaccine, 13 valent ИВАН JESSICA DO [facility] 09-09-2014 influenza virus vacc ine, unspecified formulation ИВАН LOPEZ DO [facility] 08-24-2013 influenza virus vacc ine, unspecified formulation ИВАН RICHARDSONLAY DO [facility] 08-25-2012 influenza virus vacc ine, unspecified formulation ИВАН RICHARDSONLAY DO [facility] 08-04-2012 zoster vaccine, live ИВАН JESSICA DO [facility] 08-03-2012 zoster vaccine, live ИВАН JESSICA DO [facility] 04-04-2008 tetanus and diphther ia toxoids, adsorbed, preservative free, for adult use (5 Lf of tetanus toxoid and 2 Lf of diphtheria toxoid) ИВАН ALEXANDRAY DO [facility] 04-03-2008 tetanus and diphther ia toxoids, adsorbed, preservative free, for adult use (5 Lf of tetanus toxoid and 2 Lf of diphtheria toxoid) ИВАН JESSICA DO [facility] 08-28-2006 pneumococcal polysaccharide vaccine, 23 valent ИВАН LOPEZ DO [facility] Payers Date Payer Category Payer Private Health Insurance [id number] 2025 Unknown 2024 Medicare HMO [employer] MEDICARE [id number] 2023 Self-pay [id number] 2015 Unknown [id number] 1940 Unknown [id number] ..[id number]. 2.627 1940 Unknown [id number] 12.20.830.1.398223.3.579. 2.627 1940 Unknown [id number] 2.16.840.1.305788.3.579. 2.627 1940 Unknown [id number] 2.16840.1.813981.3.579. 2.627 1940 Unknown [id number] 2.16840.1.777072.3.579. 2.627 1940 Unknown [id number] 2.16840.1.685382.3.579. 2.627 1940 Unknown [id number] 2.16840.1.306678.3.579. 2.627 1940 Unknown [id number] 2.840.1.643735.3.579. 2.627 1940 Unknown [id number] 2.840.1.158366.3.579. 2.627 1940 Unknown [id number] 2.840.1.018449.3.579. 2.627 1940 Unknown [id number] 2.840.1.625232.3.579. 2.627 1940 Unknown [id number] 2.840.1.928576.3.579. 2.627 1940 Unknown [id number] 2.16840.1.883164.3.579. 2.627 1940 Unknown [id number] 2.840.1.959012.3.579. 2.627 1940 Unknown [id number] 2.840.1.594526.3.579. 2.627 Medicare MEDICARE PART A B [id number] Unknown [id number] 2.16840.1.221041.3.579. 2.462 Unknown [id number] 2.16.840.1.235970.3.579. 2.462 Unknown [id number] 2.16.840.1.439138.3.579. 2.462 Unknown [id number] 2.16.840.1.255316.3.579. 2.462 Unknown [id number] 2.16.840.1.837711.3.579. 2.462 Unknown [id number] 2.16.840.1.355017.3.579. 2.462 Social History Date Type Detail Facility Start: 04-07-2021 End: 05-11-2025 Never smoked tobacco (finding) [facility] Start: 1940 Sex Assigned At Female [facility] Start: 11-29-2023 [facility] ever smoked [facility] Start: 05-09-2018 None [facility] Start: 05-09-2018 With Family [facility] Start: 05-23-2018 Non-smoker [facility] Start: 1940 Sex assigned at Not on file [facility] Start: 09-28-2019 End: 06-04-2022 Sex Female (finding) [facility] Gender identity Not on file [facility] Sexual Orientation [facility] Medical Equipment Procedure Code Equipment Code [...] Level Of Cons ciousness Awake;Alert;Appropriate;Follow s Commands [facility] Work Phone: 09-24-2023 Mental Status Orientation Oriented x 4 [facility] Clinical Notes 01-13-2024 to 06-18-2025 Discharge Yossi [...] Locations *1: This test was performed at: [facility], [address] [place] [address], [facility] , [facility] 06-16-2025 Note . MICRO - Microbiology PROCEDURE: Shiga Toxins 1 and 2 [[id number]: [id number] ^1 *1] SOURCE: Stool BODY SITE: COLLECTED [...] Locations *1: This test was performed at: [address], [address] , [facility] 06-16-2025 Note . MICRO - Microbiology [...] Locations *1: This test was performed at: [address], [address] , [facility] 06-15-2025 Note . MICRO - Microbiology [...] Locations *1: This test was performed at: [address], [address] [place] [address] 03-31-2025 Nurse Progress note patient tolerated prolia injection without signs or symptoms of a reaction Digitally Signed by Sara Keith RN on 03/31/2025 11:24 AM [facility] 10-09-2024 Note . MICRO - Microbiology PROCEDURE: [...] Locations *1: This test was performed at: [facility], [address] [place] [address], [place], [address]- , [facility] 09-30-2024 Hospital Discharg e instructions Anthony Richey MD - 09/30/2024 2:12 PM EST Please return the emergency department if you develop chest pain shortness of breath nausea vomiting back pain or you pass out documented in this encounter [facility] 09-30-2024 Emergency department Note Emergency Department Encounter [facility] EMERGENCY DEPT Patient: Henry Degroot : 1940 [...] for clarification.) Toi Miller MD Acute Care [facility] Toi Miller MD 09/30/24 1524 documented in this encounter [facility] 09-30-2024 Physician Emergency department Note Emergency Department Encounter [facility] EMERGENCY DEPT Patient: Henry Degroot : 1940 [...] [employer] Toi Miller MD 09/30/24 1524 [employer] Phone: 09-28-2024 Nurse Progress note patient tolerated prolia injection without signs or symptoms of a reaction Digitally Signed by Sara Keith RN on 09/28/2024 11:12 AM [facility] 01-13-2024 Note ORIGINAL EXAMINATION: BONE DENSITOMETRY 01/13/2024 [...] 01/13/2024 10:46:45 AM Ordering Provider: ИВАН LOPEZ [facility] Evaluation + Plan note Future Appointments Appointment Date:02/09/2022 10:30:00 AM Scheduled Provider:ИВАН LOPEZ DO Location:[facility] Appointment Type:PC OV Future Scheduled TestsBD Bone Density DEXA Axial Skeleton 10/23/21 [facility] Evaluation + Plan note Future Appointments Appointment Date:02/09/2022 10:30:00 AM Scheduled Provider:ИВАН LOPEZ DO Location:[facility] Appointment Type:PC OV [facility] Evaluation + Plan note Future Appointments Appointment Date:02/26/2023 10:30:00 AM Scheduled Provider:ИВАН LOPEZ DO Location:[facility] Appointment Type:PC OV [facility] Evaluation + Plan note Future Appointments Appointment Date:02/26/2023 10:30:00 AM Scheduled Provider:ИВАН LOPEZ DO Location:[facility] Appointment Type:PC OV Future Scheduled TestsUrinalysis 11/27/22Urine Culture 11/27/22 [facility] Evaluation + Plan note Future Appointments Appointment Date:09/25/2023 09:00:00 AM Scheduled Provider:ИВНА LOPEZ DO Location:[facility]ment Type[facility] Evaluation + Plan note Future Appointments Appointment Date:02/27/2024 09:30:00 AM Scheduled Provider:ИВАН LOPEZ DO Location:[facility] Appointment Type:PC Wellness [facility] Evaluation + Plan note Future Appointments Appointment Date:08/20/2024 11:00:00 AM Scheduled Provider:ИВАН LOPEZ DO Location:[facility] Appointment Type:PC OV Future Scheduled TestsMA Mammo Screening Left w/ Richard 02/27/24 [facility] Evaluation + Plan note Future Appointments Appointment Date:03/25/2024 11:30:00 AM Scheduled Provider: Location:[facility] Appointment Type:INF Injection - Prolia Appointment Date:08/20/2024 11:00:00 AM Scheduled Provider:ИВАН LOPEZ DO Location:[facility] Appointment Type:PC OV [facility] Evaluation + Plan note Future Appointments Appointment Date:08/20/2024 11:00:00 AM Scheduled Provider:ИВАН LOPEZ DO Location:[facility] Appointment Type:PC OV [facility] Evaluation + Plan note Future Appointments Appointment Date:02/19/2025 10:30:00 AM Scheduled Provider:ИВАН LOPEZ DO Location:[facility] Appointment Type:PC Wellness [facility] Enhanced Future Scheduled TestsThyroid Stimulating Hormone 02/05/25Complete Blood Count 02/05/25Lipid Profile 02/05/25Vitamin D Level 02/05/25Complete Metabolic Panel 02/05/25 [facility] Evaluation + Plan note Future Appointments Appointment Date:03/03/2026 09:30:00 AM Scheduled Provider:ИВАН LOPEZ DO Location:[facility] Appointment Type:PC Wellness [facility] Enhanced Future Scheduled TestsUrinalysis w/ C&S if Indicated 11/18/24Urine Culture 11/18/24Urine Culture 11/20/24 [facility] Evaluation note No assessment inform ation available [facility] Work Phone: Evaluation note Diagnosis Closed head injury, initial encounter- Primary Fall, initial encounter Vasovagal syncope Syncope and collapse [facility] Narrative No data available for this section [facility] Hospital Discharge instructions No data available for this section [facility] Progress note No data available for this section [facility] Summary Purpose Family History No Family History Records Found Relationship Condition Age at Onset Recorded Date/T saniya father Coronary artery disease Unknown aunt Malignant neoplasm of breast Unknown sister Malignant neoplasm of uterus Unknown Advance Directives No Advanced Directives Records Found Advance Directive Response Recorded Date/ Time Advance Directives Yes May 02 1:35pm Living Will Yes November 29 11:11am Power of Filling Mixer Yes November 29, 2023 11:11am Name of Medical Power of Filling Mixer GEORGINA DEGROOT November 29, 2023 11:11am Healthcare Agents on File Name Relationship Healthcare Agent [facility] p [place] Morales Daughter Health Care Agent Chief Complaint and Reason for Visit Chief Complaint GEN ILLNESS Additional Source Comments INFORMATION SOURCE (unrecogn ized section and content) DATE CREATED AUTHOR 04/30/2018 [facility] DATE CREATED AUTHOR AUTHOR'S ORGANIZ ATION 05/01/2018 [facility] DATE CREATED AUTHOR AUTHOR'S ORGANIZ ATION 07/07/2020 [facility] DATE CREATED AUTHOR AUTHOR'S ORGANIZ ATION 03/27/2024 [facility] ([place]) DATE CREATED AUTHOR AUTHOR'S ORGANIZ ATION 10/03/2024 [facility] DATE CREATED AUTHOR AUTHOR'S ORGANIZ ATION 08/28/2025 [facility] DATE CREATED AUTHOR AUTHOR'S ORGANIZ ATION 09/16/2025 [facility] Care Team (unrecognized sect ion and content) Team Status: Active Member Role Status Dates Dr. Raquel Dumont MD Family Provider Active Dr. Иван Lopez , Primary Care Provider Active Team Status: Inactive Member Role Status Dates Dr. Иван Lopez DO Primary Care Provider Active Dr. 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 Specialty Start Date End Date Иван Lopez DO [address] [facility] [place] [address] PCP - General Family Medicine 09/30/24 Care Team (unrecognized sect ion and content) Care Team Personnel Name: JOSE STOCKTON Member Role: Chiropractor Address: Address: [address] [place], [place] [address] Name: GRACIELA PEDROZA MD Position: [facility] Physician Member Role: Neurologist Address: Address: [address] [place] [address]- Name: FRANCHESCA BERG MD Member Role: Oncologist Address: Address: [address] [place] [address]- Name: TOI COLMENARES MD Member Role: Batch Unloader Address: Address: [address] [place] [address]- Name: ИВАН LOPEZ DO Position: P4 Physician - Primary Care Member Role: Primary Care Physician Address: Address: [address] [place] [address]- Name: MATT RAMIREZ MD Member Role: Manager Lvn Address: Address: [address] [place] [address] [place] Name: MARGARET MORALES MD Member Role: Parish Nurse Address: Address: [address] [address]- Name: MAGDY SYED Member Role: Security Compliance Specialist Address: Address: [address] [address]- Name: GROVER FLORES DPM Position: Physician Member Role: Potato Sorter Address: Address: [address] [facility], [address] [facility] [place] [address]- Care Team Related Persons Name: KATIE DEGROOT Name: ISABEL DEGROOT Care Team Personnel Name: JOSE STOCKTON Member Role: Chiropractor Address: Address: [address] [place] [address]- Name: GRACIELA PEDROZA MD Position: [facility] Physician Member Role: Neurologist Address: Address: [address] [facility] [place] [address]- Name: FRANCHESCA BERG MD Member Role: Oncologist Address: Address: [address] [place] [address]- Name: TOI COLMENARES MD Member Role: Batch Unloader Address: Address: [address] [place] [address]- Name: ИВАН LOPEZ DO Position: P4 Physician - Primary Care Member Role: Primary Care Physician Address: Address: [address] [place] [address]- [place] Name: MATT RAMIREZ MD Member Role: Manager Lvn Address: Address: [address] [place] [address] [place] Name: MARGARET MORALES MD Member Role: Parish Nurse Address: Address: [address] [place] [address]- [place] Name: MAGDY SYED Member Role: Security Compliance Specialist Address: Address: [address] [facility] [address] [place] [address]- [place] Name: GROVER FLORES DPM Position: Physician Member Role: Potato Sorter Address: Address: [address] [facility], [address] [facility] [place] [address]- [place] Care Team Related Persons Name: KATIE DEGROOT Name: ISABEL DEGROOT Care Team Personnel Name: JOSE STOCKTON Member Role: Chiropractor Address: Address: [address] [place] [address]- [place] Name: GRACIELA PEDROZA MD Position: [facility] Physician Member Role: Neurologist Address: Address: [address] [facility] [place] [address]- [place] Name: FRANCHESCA BERG MD Member Role: Oncologist Address: Address: [address] [facility] [place] [address]- [place] Name: TOI COLMENARES MD Member Role: Batch Unloader Address: Address: [address] [place] [address]- [place] Name: ИВАН LOPEZ DO Position: Physician - Primary Care Member Role: Primary Care Physician Address: Address: [address] [place] [address]- [place] Name: MATT RAMIREZ MD Member Role: Manager Lvn Address: Address: [address] [place] [address] [place] Name: MARGARET MORALES MD Member Role: Parish Nurse Address: Address: [address] [facility] [address] [place] [address]- [place] Name: MAGDY SYED Member Role: Security Compliance Specialist Address: Address: [address] [facility] [address] [place] [address]- [place] Name: GROVER FLORES DPM Position: Physician Member Role: Potato Sorter Address: Address: [address] [facility], [address] [facility] [place] [address]- Care Team Related Persons Name: ZANE KATIE [...] THE PRIMARY CLINICAL RECORDS. [facility] [employer] provides no warranty or guarantee of the accuracy or completeness of information in this document.
--- NOTE | 2025-09-22 00:50 | ECHOD_ITS ---
Reason For Study Reason For Study: ABNL EKG Procedure This was a 2D Doppler, Color Flow transthoracic echocardiogram. The study was technically difficult. Due to heart & arrhythmia,. Exam performed in department. Left Ventricle Normal LV size. Left ventricular systolic function is normal. The left ventricular ejection fraction is 60 %. No regional wall motion abnormalities noted. Right Ventricle Normal RV size. Normal systolic function. Atria Normal left atrium. Normal right atrium. Mitral Valve Normal mitral valve. Tricuspid Valve Normal tricuspid valve. Mild (1+) tricuspid valve insufficiency. Pulmonary artery systolic pressure is 28 mmHg. Aortic Valve Trisinus/trileaflet aortic valve. Mild focal aortic valve thickening. Pulmonic Valve Normal pulmonic valve. Great Vessels Normal sized aortic root. The pulmonary artery is normal size. Inferior vena cava collapse with respiration. Pericardium/Pleural No pericardial effusion. MMode/2D Measurements & Calculations LVIDd: 3.9 cm IVSd: 0.81 cm Ao root diam: 2.8 cm LVIDs: 2.7 cm LVPWd: 0.72 cm FS: 30.1 % LAV(MOD-bp): 60.6 ml LVAd ap4: 17.5 cm2 SV(MOD-sp4): 25.4 ml LAV(MOD-bp) Indexed: 34.4 ml/m2 LVLd ap4: 6.0 cm SI(MOD-sp4): 14.4 ml/m2 LAV(MOD-sp2): 59.2 ml EDV(MOD-sp4): 42.6 ml LAV(MOD-sp4): 59.3 ml EDV(sp4-el): 43.3 ml LVAs ap4: 10.4 cm2 LVLs ap4: 5.2 cm ESV(MOD-sp4): 17.2 ml ESV(sp4-el): 17.6 ml EF(MOD-sp4): 59.5 % EF(sp4-el): 59.4 % SV(sp4-el): 25.7 ml LA A4 area: 21.6 cm2 LA dimension(2D): 4.1 cm RA A4 area: 14.3 cm2 TAPSE: 1.8 cm Doppler Measurements & Calculations MV E max manav: 113.5 cm/sec Lat Peak E' Manav: 7.2 cm/sec Med Peak E' Manav: 8.2 cm/sec E/E' lat: 15.8 E/E' med: 13.9 Ao V2 max: 169.9 cm/sec AI max manav: 384.4 cm/sec LV V1 max: 106.5 cm/sec Ao max P.6 mmHg AI max P.1 mmHg LV V1 max P.5 mmHg Ao V2 mean: 109.1 cm/sec LV V1 mean P.5 mmHg Ao mean P.4 mmHg AI dec slope: 369.0 cm/sec2 LV V1 mean: 75.0 cm/sec Ao V2 VTI: 23.8 cm AI P1/2t: 305.1 msec LV V1 VTI: 15.5 cm AV (velocity ratio): 0.65 PA V2 max: 103.2 cm/sec TR max manav: 245.6 cm/sec TR max P.1 mmHg ECHO/Echo Complete Interpretation Summary Normal LV size. Left ventricular systolic function is normal. The left ventricular ejection fraction is 60 %. Mild focal aortic valve thickening. Ordering Physician: Frieda Gallegos Referring Physician: Juju Lopez Performed By: Antoinette Obrien RDCS, RVT
[2025-09-22] MEDS: Amiodarone 150 MG in Dextrose 5%-Water (100mL Bag) 100 ML 600 MG IV BOLUS (01:20)
[2025-09-22] MEDS: 0.9% Saline Lock 10 ML Syringe IV (01:45)
[2025-09-22] MEDS: Amiodarone 360 MG in Dextrose 5% Viaflo Bag 192.8 ML 33.3 MG CONT INF (01:52)
[2025-09-22] MEDS: Lactated Ringers 1,000 ML 75 ML IV (01:52)
[2025-09-22 01:57] LABS: Troponin T High Sens 4 HR 17 ng/L (<=14)
[2025-09-22] MEDS: Digoxin 250 MCG/ML Ampul 500 MCG IV (06:05)
--- NOTE | 2025-09-22 06:27 | PCM.HOSP.N ---
Hospitalist Note Patient still with ongoing tachycardia despite amiodarone bolus and drip. Rates are now between 120 and 130. Will give 1 dose of digoxin 500 mcg and continue to monitor heart rate. Will also give 1 L IV fluids with LR.
[2025-09-22 07:30] LABS: Hematocrit 39.0 % (37-47); Hemoglobin 12.5 g/dL (12.0-15.0); Immature Granulocytes Count 0.090 X10^3/uL (0.0-0.0); Mean Corp Hgb Conc 32.1 g/dL (32-36); Mean Corpuscular Volume 98.0 fL (81-99); Mean Platelet Vol. 10.5 fl (6.2-12.0); NRBC Flagged by Analyzer 0 % (0-5); POSITIVE DIFFERENTIAL YES; Platelet Count 302 K/mm3 (150-450); RBC Distribution Width CV 12.5 % (11.6-14.6); RBC Distribution Width SD 45.0 fl (35.1-43.9); Red Blood Count 3.98 M/mm3 (4.2-5.4); White Blood Count 20.2 K/mm3 (4.4-11.0)
[2025-09-22 07:32] LABS: Differential Indicated SCAN CRITERIA MET
[2025-09-22 08:10] LABS: Differential Comment SCANNED
[2025-09-22 08:17] LABS: AST(SGOT) 21 U/L (<=31); Alanine Aminotransfer ALT/SGPT 8 U/L (<=34); Albumin, Serum 2.3 g/dL (3.4-4.8); Alkaline Phosphatase 50 U/L (35-104); Anion Gap 10 (5-15); BUN 11 mg/dL (4-19); BUN/Creat Ratio 17.2 RATIO (10-20); Calcium,Total 8.2 mg/dL (7.6-11.0); Carbon Dioxide 17.8 mmol/L (21.0-32.0); Chloride 109 mmol/L (98-108); Estimated Creatinine Clearance 50.34 ml/min (50-250); Globulin 3.2 g/dL (2.2-4.2); Glucose 122 mg/dL (70-99); Magnesium 2.1 mg/dL (1.5-2.2); Potassium 3.5 mmol/L (3.3-5.1)
[2025-09-22] MEDS: Amiodarone 360 MG in Dextrose 5% Viaflo Bag 192.8 ML 16.7 MG CONT INF ×2 (08:52→18:45)
[2025-09-22] MEDS: Lactated Ringers 500 ML 999 ML IV (09:02)
--- NOTE | 2025-09-22 09:20 | PCM.PN.HOSP ---
Reason for Visit Chief Complaint: Generalized weakness and recurrent falls Subjective Subjective Feels well. Denies chest pain nor palpiations. Objective Data Objective Data Vital Signs: Vital Signs Temp Pulse Resp BP Pulse Ox O2 Del Method 36.7 C 143 H 23 H 111/79 98 Room Air 09/22/25 00:40 09/22/25 08:52 09/22/25 00:40 09/22/25 08:52 09/22/25 00:40 09/22/25 01:30 Oxygen Delivery Method Room Air Weight: 73 kg Body Mass Index (BMI) 27.6 Intake & Output: Intake and Output for Last 24 Hours 09/20/25 09/21/25 09/22/25 23:59 23:59 23:59 Intake Total 2363.55 / 2363.55 Output Total 400 / 400 Balance 1963.55 / 1963.55 Lab / Micro Data 09/22/25 07:20 09/22/25 07:20 Labs: Laboratory Results - last 24 hr 09/21/25 20:53: WBC 20.5 H, RBC 4.36, Hgb 13.4, Hct 42.3, MCV 97.0, MCH 30.7, MCHC 31.7 L, RDW Std Deviation 44.3 H, RDW Coeff of Rich 12.5, Plt Count 415, MPV 10.9, Immature Gran % (Auto) 0.500, Neut % (Auto) 83.8 H, Lymph % (Auto) 8.6 L, [place] % (Auto) 6.6, Eos % (Auto) 0.1, Baso % (Auto) 0.4, Absolute Neuts (auto) 17.1 H, Absolute Lymphs (auto) 1.76, Nucleated RBC % 0, PT 18.7 H, INR 1.5, APTT 35.2, Sodium 139, Potassium 3.8, Chloride 106, Carbon Dioxide 19.5 L, Anion Gap 14, BUN 14, Creatinine 0.79, Estim Creat Clear Calc 50.03, Est GFR (MDRD) Non-Af 73, BUN/Creatinine Ratio 17.3, Glucose 129 H, Calcium 8.9, Troponin T High Sens 17 H 09/21/25 21:01: Lactic Acid 1.9 09/21/25 21:08: Urine Color Yellow, Urine Clarity Clear, Urine pH 6.0, Ur Specific [place] 1.015, Urine Protein 30 H, Urine Glucose (UA) Normal, Urine Ketones 50 H, Urine Occult Blood 10 H, Urine Nitrite Negative, Urine Bilirubin 1 H, Urine Urobilinogen Normal, Ur Leukocyte Esterase 25 H, Urine RBC 0-5 SEEN, Urine WBC 0-5 SEEN, Ur Squamous Epith Cells 0-5 SEEN, Urine Bacteria 1+, Urine Mucus 0 SEEN 09/21/25 23:00: Troponin T Hi Sens 2 Hr 23 H, TSH 1.000 09/22/25 01:11: Troponin T Hi Sens 4Hr 17 H 09/22/25 07:20: WBC 20.2 H, RBC 3.98 L, Hgb 12.5, Hct 39.0, MCV 98.0, MCH 31.4, MCHC 32.1, RDW Std Deviation 45.0 H, RDW Coeff of Rich 12.5, Plt Count 302, MPV 10.5, Immature Gran % (Auto) 0.400, Neut % (Auto) 75.1 H, Lymph % (Auto) 10.7 L, [place] % (Auto) 13.2 H, Eos % (Auto) 0.3, Baso % (Auto) 0.3, Absolute Neuts (auto) 15.2 H, Absolute Lymphs (auto) 2.17, Nucleated RBC % 0, Differential Comment SCANNED, Sodium 137, Potassium 3.5, Chloride 109 H, Carbon Dioxide 17.8 L, Anion Gap 10, BUN 11, Creatinine 0.65 L, Estim Creat Clear Calc 50.34, Est GFR (MDRD) Non-Af 86, BUN/Creatinine Ratio 17.2, Glucose 122 H, Calcium 8.2, Phosphorus 2.7, Magnesium 2.1, Total Bilirubin 0.71, AST 21, ALT 8, Alkaline Phosphatase 50, Total Protein 5.5 L, Albumin 2.3 L, Globulin 3.2, Albumin/Globulin Ratio 0.7 L Radiography Diagnostic Testing: Radiology Impression Brain CT 09/21/25 21:04 IMPRESSION: No acute intracranial abnormality. Stable appearing multifocal chronic infarcts in the bilateral cerebral hemispheres. Reading Location: [facility] Pelvis X-Ray 09/21/25 21:04 IMPRESSION: No acute fracture or dislocation. Reading Location: [facility] Chest X-Ray 09/21/25 21:30 IMPRESSION: No evidence of acute cardiopulmonary disease. Chronically elevated right hemidiaphragm, unchanged. Reading Location: [facility] Rhythm Strip Rhythm Strip: A-fib Rate: 174 Ectopy: None Physical Exam Const Constitutional Narrative: up in chair. on room air. no respiratory distress. no conversational dypsnea. Resp normal respiratory effort, no retractions, no use of accessory muscles and clear to auscultation bilaterally Cardio Cardio Narrative: irregularly irregular. Neuro Sensorium / Orientation: awake and alert Assessment & Plan Assessment/Plan (1) Recurrent colitis due to Clostridioides difficile: (2) Leukocytosis: (3) Atrial fibrillation with RVR: (4) Chronic anticoagulation: (5) Multiple falls: (6) Generalized weakness: (7) Debility: (8) Elevated troponin: PLAN: Plan A-fib with RVR No relief with diltiazem gtt, then switched to amiodarone bolus and gtt. However, HR remained high, so she did receive 500 mcg of digoxin. Still high and did receive a 1x dose of 5mg IV metoprolol. Did have a drop in HR, but still tachycardic. DW Dr. Rick, who will see the patient in consultation. Continue home metoprolol and apixaban. TSH WNL. follow up echo. Recurrent C. difficile colitis positive as outpt. Start vancomycin 125 mg every 6 hours liquid Troponin elevation mild elevation 2/2 demand from afib w RVR. trending down. Fall/generalized weakness/debility PT OT CM. Chronic medical conditions: Seizure disorder- Continue home Keppra Essential hypertension/hyperlipidemia- Continue home beta-lucinda- Continue home pravastatin Macular degeneration- Patient is undergoing intraocular injections every 2 months- Continue outpatient follow-up Osteoporosis- Is on Prolia as an outpatient every 6 months- Continue cholecalciferol supplementation History of acute right MCA stroke- Mild left-sided weakness as a result- Suspect cardioembolic related to A-fib- Continue Eliquis History of KEVEN- No CPAP available- Order if patient is able to bring in home unit Recurrent UTIs follow up w . Depression- Continue home Cymbalta DVT prophylaxis - continue home apixaban CODE STATUS - DNR CCA with no intubation as per discussion with patient and her daughter who is POA at the time of admission Charges/Coding Visit Charges Inpatient E&M: 60684 Subs Hosp L2
[2025-09-22] MEDS: Vancomycin 125 MG/5 ML Susp PO.SYRINGE PO ×4 (10:16→21:53)
[2025-09-22] MEDS: Metoprolol(XL)Succ 25 MG Tablet 12.5 MG PO (10:16)
[2025-09-22] MEDS: Cholecalciferol (VIT D3) 25 MCG TABLET (1,000 UNITS) PO (10:17)
[2025-09-22] MEDS: APIXABAN 5 MG TABLET PO ×2 (10:17→21:53)
--- NOTE | 2025-09-22 10:20 | CASEMGMT ---
RN?CM?MODEL AND MOLD MAKER?CM?to room to meet with patient for initial transition planning/care coordination?assessment.?RN?CM?introduced self and role at [facility].? Pt voices understanding and consents to?assessment?at this time.? Pt resting in bed in no distress at this time.? Pt is A/O at this time and answers all questions appropriately.?? Care providers, pharmacy, and demographics verified/updated at this time. Strata: 3 PCP: Dr Juju Lopez Specialists: [facility]/Cardiology Preferred Pharmacy: [facility] Insurance: [employer] Prescription Benefit:?Yes LNOK: Katherine Hameed & Marylou Living Arrangements: Lives on main floor of home w/ramp entrance. Daughter, Marylou, and ALEXSANDRA live in basement. Pt is independent w/ADL's. DaughterMarylou, helps to manage pt's medications and home mgnt tasks. Transportation:?Marylou DME: ?States has the following DME:?shower chair, walker, W/C, medical alert HHC/SNF: Pt has been to [facility] in 2016 & [address] [facility] 2023. Discussed discharge planning. Pt states she has been weak and feels going somewhere for therapy prior to discharging home would be beneficial. She states she would like to go to [facility] and declines wanting list of other SNF options at this time. Chelsey, RIGGING SLINGER JIMMY, made aware. PT/OT evals pending. PLAN:??SNF Sheryl VELASQUEZN?RN?CM
--- NOTE | 2025-09-22 11:39 | CASEMGMT ---
Discharge Planning A list of?SNF providers including quality and resource use data and consistent with the patient's preferred geographic region, medical needs, and insurance network was created in [employer] Guide.? This list was provided to the RN JIMMY. Kaela Minor, Discharge Planning Asst.
--- NOTE | 2025-09-22 11:45 | CASEMGMT ---
Daughter asked to speak with CM. RN CM spoke with daughter. Katherine states that she has been having difficulty caring for patient at home and they have been looking into LTC at [facility] and is on wait list. Katherine states that they would like patient to go skilled and hopes that a LTC would open up but willing to transfer to different SNF if needed. Katherine had no further questions or concerns. CM to send referral to [facility]. CM will continue to follow this patient and plan for a safe discharge.
[2025-09-22] MEDS: Ensure Plus High Protein 120 ML LIQUID PO (13:23)
--- NOTE | 2025-09-22 14:29 | CHAPLAIN ---
Type of Pastoral Visit ___ Initial Visit ___ Follow-up Visit ___ On-call Visit ___ General Patient Visit ___ Spiritual Assessment ___ Family Conference ___ Bereavement ___ Rapid Response ___ Code Blue ___ Other (describe below) Pastoral Care Referral From ___ Patient ___ Family ___ Nurse ___ Physician ___ Silk Spooler ___ Wine Master ___ Other (describe below) Sacrament/Intervention ___ Active listening ___ Anointing ___ Rastafarian ___ Bereavement ___ Communion ___ Mayela exploration ___ ___ Life review ___ Prayer ___ Reconciliation ___ Sacrament of Sick ___ Supportive presence ___ Wedding ___ Other (describe below) Pastoral Comments two attempts and the patient is busy with staff
--- NOTE | 2025-09-22 17:31 | PCM.CONS.C ---
Assessment & Plan Assessment/Plan (1) Atrial fibrillation with RVR: PLAN: Patient presents with atrial fibrillation with a rapid ventricular response rate. I think the above is exacerbated by the dehydration. At this particular time I would recommend continued hydration status and then also to increase the metoprolol to 50 mg twice a day. Continue Eliquis at the current dose Low-dose amiodarone Keep appropriately hydrated Correct electrolyte derangements. (2) Hypertension: PLAN: Her blood pressure appears to be under good control at this time I would not recommend that we make any major changes. HPI Consult Data Date of Consult: 09/22/25 HPI Narrative HPI Narrative: HENRY DEGROOT, is a 85 F who presents to the emergency room complaining of generalized weakness falls as well as having had recent diverticulitis for which she was treated with antibiotics and has been diagnosed with C. difficile colitis. She has also had diarrhea nausea vomiting and intermittent crampy abdominal pain. She does have a known history of previous cerebrovascular accident and atrial fibrillation. When she presented to the emergency room she was noted to have atrial fibrillation with rapid ventricular response rate minimum troponin elevation and was admitted and treated for her elevated heart rate. She also had some electrolyte abnormalities present. Cardiology was called for further evaluation and management due to persistent heart rate elevation. An echocardiogram performed today demonstrated overall preserved left ventricular systolic function. At the time she was seen she continued to be in an irregularly irregular rhythm with a rate between 100 and 110 and normal blood pressures. [facility] Medical History (Updated 09/22/25 @ 17:[address] Alfred Rick MD) MRSA (methicillin resistant staph aureus) culture positive Atrial fibrillation Seizures History of fall Wears hearing aid Wears glasses Cancer Depression Walker as ambulation aid Arthritis UTI (urinary tract infection) Loss of consciousness Difficulty swallowing Blood in stool History of diverticulitis Non-smoker CPAP (continuous positive airway pressure) dependence Leg cramps History of pain when walking History of edema Hypertension History of echocardiogram Cardiology follow-up encounter Seizure Paroxysmal atrial fibrillation Macular degeneration Left hemiparesis Cerebrovascular disease Gammopathy 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 Snoring Acute right MCA stroke (02/08/16) Obesity (BMI 30.0-34.9) Home Medications ?Medication ?Instructions ?Recorded ?Last Taken ?Type vit C 250 mg-vit E 90 mg-zinc 40 1 ea PO BID eye vitamin 05/07/18 Unknown History mg-copper 1 [id number] capsule apixaban 5 mg tablet 5 mg PO BID blood thinner #180 tabs 12/04/19 07/10/24 09:05 Rx pravastatin 10 mg tablet 10 mg PO QODAY CHOLESTEROL 01/12/21 07/08/24 22:55 History calcium carb 133 mg-vitD3 133 1 cap PO DAILY Supplement 02/08/22 Unknown History unit-mag amino acid chelate 67mg capsule (Coral Calcium) duloxetine 30 mg capsule,delayed 30 mg PO BID Depression 02/08/22 07/10/24 09:00 History release (Cymbalta) denosumab 60 mg/mL subcutaneous 60 mg subcut [id number] Osteoporosis 05/02/23 Unknown History syringe (Prolia) levetiracetam 250 mg tablet 250 mg PO DAILY Seizures 07/10/24 Unknown History acetaminophen 500 mg tablet 1,000 mg (2 x 500 mg) PO Q6H PRN 07/30/24 Unknown Rx PRN Pain Score 1-10 #0 tabs cholecalciferol (vitamin D3) 125 25 mcg PO QDAY 09/21/24 Unknown History mcg (5,000 unit) tablet cyanocobalamin (vitamin B-12) 1,000 mcg PO QDAY 09/21/24 Unknown History 1,000 mcg tablet levetiracetam 250 mg tablet 500 mg PO QPM 09/21/24 Unknown History omega-3 fatty acids-fish oil 435 cap PO 09/21/24 Unknown History mg-880 mg capsule (Fish Oil Extra Strength) pegcetacoplan (PF) 15 mg/0.1 mL 15 mg intravitreal [id number] Eyes 09/21/24 Unknown History intravitreal solution (Syfovre (PF)) metoprolol succinate 25 mg 12.5 mg (1/2 x 25 mg) PO DAILY 04/20/25 Unknown Rx tablet,extended release 24 hr blood pressure #45 tabs vancomycin 125 mg capsule 125 mg PO 09/21/25 Unknown History Allergy/AdvReac Type Severity Reaction Status Date / Time No Known Allergies Allergy Verified 09/05/25 10:35 Family History Father CAD (coronary artery disease) Aunt Breast cancer Sister Uterine cancer Surgical History History of laser refractive surgery S/P laser cataract surgery History of bilateral cataract extraction History of colonoscopy History of total mastectomy of right breast Social History household members: family current occupational status: retired Smoking Status: Never smoker alcohol intake: never substance use type: does not use ROS Constitutional Constitutional: Denies fever(s) or weight loss Eyes Eyes: Reports systems reviewed and no addt'l complaints, except as documented ENT HEENT: Reports systems reviewed and no addt'l complaints, except as documented Cardiovascular Cardiovascular: Reports dyspnea on exertion and palpitations; Denies chest pain at rest, chest pain with activity, dyspnea at rest, edema or paroxysmal nocturnal dyspnea Respiratory/Chest Respiratory/Chest: Denies dyspnea on exertion, productive cough, shortness of breath at rest or shortness of breath with exertion Gastrointestinal Gastrointestinal: Reports change in bowel habits, diarrhea and vomiting; Denies nausea or weight changes Genitourinary Genitourinary: Denies difficulty urinating Musculoskeletal Musculoskeletal: Denies joint stiffness or muscle weakness Integumentary Integumentary: Denies lesions Neurologic Neurologic: Denies dizziness or syncope Psychiatric Psychiatric: Denies anxiety Endocrine Endocrinology: Denies excessive sweating or fatigue Hematologic/Lymphatic Hematologic/Lymphatic: Denies anemia Allergic/Immunologic Allergic/Immunologic: Denies seasonal rhinorrhea Physical Exam Const alert and oriented x3 Orientation / Consciousness: awake HEENT normocephalic Eyes PERRL Neck Carotids: normal carotid upstroke Resp clear to auscultation bilaterally Cardio Rhythm: abnormal rhythm irregularly irregular Extremity no clubbing, cyanosis or edema Objective Data Vital Signs: Vital Signs Temp Pulse Resp BP Pulse Ox O2 Del Method 98.2 F 130 H 24 H 148/84 H 94 Room Air 09/22/25 07:00 09/22/25 13:23 09/22/25 12:07 09/22/25 12:07 09/22/25 10:00 09/22/25 17:24 Oxygen Delivery Method Room Air Weight: 160 lb 14.999 oz Body Mass Index (BMI) 27.6 Intake & Output: Intake and Output for Last 24 Hours 09/20/25 09/21/25 09/22/25 23:59 23:59 23:59 Intake Total 2634.78 / 2634.78 Output Total 400 / 400 Balance 2234.78 / 2234.78 Lab / Micro Data 09/22/25 07:20 09/22/25 07:20 Labs: Laboratory Results - last 24 hr 09/21/25 20:53: WBC 20.5 H, RBC 4.36, Hgb 13.4, Hct 42.3, MCV 97.0, MCH 30.7, MCHC 31.7 L, RDW Std Deviation 44.3 H, RDW Coeff of Rich 12.5, Plt Count 415, MPV 10.9, Immature Gran % (Auto) 0.500, Neut % (Auto) 83.8 H, Lymph % (Auto) 8.6 L, [place] % (Auto) 6.6, Eos % (Auto) 0.1, Baso % (Auto) 0.4, Absolute Neuts (auto) 17.1 H, Absolute Lymphs (auto) 1.76, Nucleated RBC % 0, PT 18.7 H, INR 1.5, APTT 35.2, Sodium 139, Potassium 3.8, Chloride 106, Carbon Dioxide 19.5 L, Anion Gap 14, BUN 14, Creatinine 0.79, Estim Creat Clear Calc 50.03, Est GFR (MDRD) Non-Af 73, BUN/Creatinine Ratio 17.3, Glucose 129 H, Calcium 8.9, Troponin T High Sens 17 H 09/21/25 21:01: Lactic Acid 1.9 09/21/25 21:08: Urine Color Yellow, Urine Clarity Clear, Urine pH 6.0, Ur Specific [place] 1.015, Urine Protein 30 H, Urine Glucose (UA) Normal, Urine Ketones 50 H, Urine Occult Blood 10 H, Urine Nitrite Negative, Urine Bilirubin 1 H, Urine Urobilinogen Normal, Ur Leukocyte Esterase 25 H, Urine RBC 0-5 SEEN, Urine WBC 0-5 SEEN, Ur Squamous Epith Cells 0-5 SEEN, Urine Bacteria 1+, Urine Mucus 0 SEEN 09/21/25 23:00: Troponin T Hi Sens 2 Hr 23 H, TSH 1.000 09/22/25 01:11: Troponin T Hi Sens 4Hr 17 H 09/22/25 07:20: WBC 20.2 H, RBC 3.98 L, Hgb 12.5, Hct 39.0, MCV 98.0, MCH 31.4, MCHC 32.1, RDW Std Deviation 45.0 H, RDW Coeff of Rich 12.5, Plt Count 302, MPV 10.5, Immature Gran % (Auto) 0.400, Neut % (Auto) 75.1 H, Lymph % (Auto) 10.7 L, [place] % (Auto) 13.2 H, Eos % (Auto) 0.3, Baso % (Auto) 0.3, Absolute Neuts (auto) 15.2 H, Absolute Lymphs (auto) 2.17, Nucleated RBC % 0, Differential Comment SCANNED, Sodium 137, Potassium 3.5, Chloride 109 H, Carbon Dioxide 17.8 L, Anion Gap 10, BUN 11, Creatinine 0.65 L, Estim Creat Clear Calc 50.34, Est GFR (MDRD) Non-Af 86, BUN/Creatinine Ratio 17.2, Glucose 122 H, Calcium 8.2, Phosphorus 2.7, Magnesium 2.1, Total Bilirubin 0.71, AST 21, ALT 8, Alkaline Phosphatase 50, Total Protein 5.5 L, Albumin 2.3 L, Globulin 3.2, Albumin/Globulin Ratio 0.7 L Rhythm Strip Rhythm Strip: A-fib Rate: 174 Ectopy: None Cardiology Labs/Tests 09/21/25 20:53: WBC 20.5 H, RBC 4.36, Hgb 13.4, Hct 42.3, MCV 97.0, MCH 30.7, MCHC 31.7 L, Plt Count 415, MPV 10.9, Immature Gran % (Auto) 0.500, Neut % (Auto) 83.8 H, Lymph % (Auto) 8.6 L, [place] % (Auto) 6.6, Eos % (Auto) 0.1, Baso % (Auto) 0.4, Absolute Neuts (auto) 17.1 H, Nucleated RBC % 0, PT 18.7 H, INR 1.5, APTT 35.2, Sodium 139, Potassium 3.8, Chloride 106, Carbon Dioxide 19.5 L, Anion Gap 14, BUN 14, Creatinine 0.79, Est GFR (MDRD) Non-Af 73, BUN/Creatinine Ratio 17.3, Glucose 129 H, Calcium 8.9 09/21/25 21:01: Lactic Acid 1.9 09/21/25 21:08: Urine Color Yellow, Urine Clarity Clear, Urine pH 6.0, Ur Specific [place] 1.015, Urine Protein 30 H, Urine Glucose (UA) Normal, Urine Ketones 50 H, Urine Occult Blood 10 H, Urine Nitrite Negative, Urine Bilirubin 1 H, Urine Urobilinogen Normal, Ur Leukocyte Esterase 25 H, Urine RBC 0-5 SEEN, Urine WBC 0-5 SEEN 09/22/25 07:20: WBC 20.2 H, RBC 3.98 L, Hgb 12.5, Hct 39.0, MCV 98.0, MCH 31.4, MCHC 32.1, Plt Count 302, MPV 10.5, Immature Gran % (Auto) 0.400, Neut % (Auto) 75.1 H, Lymph % (Auto) 10.7 L, [place] % (Auto) 13.2 H, Eos % (Auto) 0.3, Baso % (Auto) 0.3, Absolute Neuts (auto) 15.2 H, Nucleated RBC % 0, Sodium 137, Potassium 3.5, Chloride 109 H, Carbon Dioxide 17.8 L, Anion Gap 10, BUN 11, Creatinine 0.65 L, Est GFR (MDRD) Non-Af 86, BUN/Creatinine Ratio 17.2, Glucose 122 H, Calcium 8.2, Phosphorus 2.7, Magnesium 2.1, Total Bilirubin 0.71 Rhythm: EKG: ECHO: Stress Test: Cardiac Cath: PCI: CT Surgery: Holter monitor: EPS: PPM: CXR: Chest CT Scan: Radiography Diagnostic Testing: Radiology Impression Brain CT 09/21/25 21:04 IMPRESSION: No acute intracranial abnormality. Stable appearing multifocal chronic infarcts in the bilateral cerebral hemispheres. Reading Location: [facility] Pelvis X-Ray 09/21/25 21:04 IMPRESSION: No acute fracture or dislocation. Reading Location: [facility] Chest X-Ray 09/21/25 21:30 IMPRESSION: No evidence of acute cardiopulmonary disease. Chronically elevated right hemidiaphragm, unchanged. Reading Location: [facility] Echocardiogram 09/22/25 00:50 Interpretation Summary Normal LV size. Left ventricular systolic function is normal. The left ventricular ejection fraction is 60 %. Mild focal aortic valve thickening. Ordering Physician: Frieda Gallegos Referring Physician: Juju Lopez Performed By: Antoinette Obrien, KRYSTLECS, RVT [place] Risk Score for UA/STEMI Assesmment (YES = 1) Risk Stratification Applicable: No
[2025-09-22] MEDS: Metoprolol(XL)Succ 50 MG Tablet PO (18:46)
[2025-09-23] VITALS (7 sets, daily range): BP systolic 101–125; BP diastolic 36–84; PULSE 97–108; RESP 17–21; TEMP 36.3–36.9; O2SAT 93–95
[2025-09-23] MEDS: 0.9% Normal Saline (1000mL) 1,000 ML 75 ML IV ×2 (00:43→14:53)
--- NOTE | 2025-09-23 06:57 | PCM.PN.CARD ---
Subjective Subjective Patient seen and evaluated. Appears to be stable this morning no complaints Objective Data Vital Signs: Vital Signs Temp Pulse Resp BP Pulse Ox O2 Del Method 98.4 F 103 H 18 112/49 L 94 Room Air 09/23/25 06:00 09/23/25 06:00 09/23/25 06:00 09/23/25 06:00 09/23/25 06:00 09/23/25 06:00 Oxygen Delivery Method Room Air Weight: 174 lb 9.698 oz Body Mass Index (BMI) 29.9 Intake & Output: Intake and Output for Last 24 Hours 09/21/25 09/22/25 09/23/25 23:59 23:59 23:59 Intake Total 2824.89 / 3233.24 420.67 / 420.67 Output Total 400 / 400 Balance 2424.89 / 2833.24 420.67 / 420.67 Lab / Micro Data 09/22/25 07:20 09/22/25 07:20 Labs: Laboratory Results - last 24 hr 09/22/25 07:20: WBC 20.2 H, RBC 3.98 L, Hgb 12.5, Hct 39.0, MCV 98.0, MCH 31.4, MCHC 32.1, RDW Std Deviation 45.0 H, RDW Coeff of Rich 12.5, Plt Count 302, MPV 10.5, Immature Gran % (Auto) 0.400, Neut % (Auto) 75.1 H, Lymph % (Auto) 10.7 L, [place] % (Auto) 13.2 H, Eos % (Auto) 0.3, Baso % (Auto) 0.3, Absolute Neuts (auto) 15.2 H, Absolute Lymphs (auto) 2.17, Nucleated RBC % 0, Differential Comment SCANNED, Sodium 137, Potassium 3.5, Chloride 109 H, Carbon Dioxide 17.8 L, Anion Gap 10, BUN 11, Creatinine 0.65 L, Estim Creat Clear Calc 50.34, Est GFR (MDRD) Non-Af 86, BUN/Creatinine Ratio 17.2, Glucose 122 H, Calcium 8.2, Phosphorus 2.7, Magnesium 2.1, Total Bilirubin 0.71, AST 21, ALT 8, Alkaline Phosphatase 50, Total Protein 5.5 L, Albumin 2.3 L, Globulin 3.2, Albumin/Globulin Ratio 0.7 L Rhythm Strip Rhythm Strip: A-fib Rate: 174 Ectopy: None Cardiology Labs/Tests 09/22/25 07:20: WBC 20.2 H, RBC 3.98 L, Hgb 12.5, Hct 39.0, MCV 98.0, MCH 31.4, MCHC 32.1, Plt Count 302, MPV 10.5, Immature Gran % (Auto) 0.400, Neut % (Auto) 75.1 H, Lymph % (Auto) 10.7 L, [place] % (Auto) 13.2 H, Eos % (Auto) 0.3, Baso % (Auto) 0.3, Absolute Neuts (auto) 15.2 H, Nucleated RBC % 0, Sodium 137, Potassium 3.5, Chloride 109 H, Carbon Dioxide 17.8 L, Anion Gap 10, BUN 11, Creatinine 0.65 L, Est GFR (MDRD) Non-Af 86, BUN/Creatinine Ratio 17.2, Glucose 122 H, Calcium 8.2, Phosphorus 2.7, Magnesium 2.1, Total Bilirubin 0.71 Rhythm: EKG: ECHO: Stress Test: Cardiac Cath: PCI: CT Surgery: Holter monitor: EPS: PPM: CXR: Chest CT Scan: Radiography Diagnostic Testing: Radiology Impression Echocardiogram 09/22/25 00:50 Interpretation Summary Normal LV size. Left ventricular systolic function is normal. The left ventricular ejection fraction is 60 %. Mild focal aortic valve thickening. Ordering Physician: Frieda Gallegos Referring Physician: Juju Lopez Performed By: Antoinette Obrien, KEYSHA, RVT Physical Exam Const alert and oriented x3 Orientation / Consciousness: awake HEENT normocephalic Eyes PERRL Neck Carotids: normal carotid upstroke Resp clear to auscultation bilaterally Cardio Rhythm: abnormal rhythm irregularly irregular Extremity no clubbing, cyanosis or edema Assessment & Plan Assessment/Plan (1) Atrial fibrillation with RVR: PLAN: Patient presents with atrial fibrillation with a rapid ventricular response rate. This appears to have resolved at this time. . Continue Eliquis at the current dose Low-dose amiodarone Keep appropriately hydrated Correct electrolyte derangements. (2) Hypertension: PLAN: Her blood pressure appears to be under good control at this time I would not recommend that we make any major changes.
--- NOTE | 2025-09-23 08:04 | PN.HOSP_ITS ---
Reason for Visit Chief Complaint: Generalized weakness and recurrent falls Subjective Subjective Still with diarrhea. Objective Data Objective Data Vital Signs: Vital Signs Temp Pulse Resp BP Pulse Ox O2 Del Method 36.9 C 103 H 18 112/49 L 94 Room Air 09/23/25 06:00 09/23/25 06:00 09/23/25 06:00 09/23/25 06:00 09/23/25 06:00 09/23/25 06:00 Oxygen Delivery Method Room Air Weight: 79.2 kg Body Mass Index (BMI) 29.9 Intake & Output: Intake and Output for Last 24 Hours 09/21/25 09/22/25 09/23/25 23:59 23:59 23:59 Intake Total 2824.89 / 3233.24 620.67 / 620.67 Output Total 400 / 400 300 / 300 Balance 2424.89 / 2833.24 320.67 / 320.67 Medical Nutrition Assessment Dietitian: Malnutrition Criteria Met Start: 09/22/25 14:07 Freq: Status: Active Protocol: Document 09/22/25 14:07 SB (Rec: 09/22/25 14:07 SB [id number]) Nutrition Malnutrition Evidence of Yes Malnutrition Exists Malnutrition (severe Acute Illness/Injury ): Evidenced By Suboptimal Energy Intake (Severe),Weight Loss (Severe) Clinical Problem Acute Disease or Injury Related Malnutrition Etiology severe malnutrition related to inadequate oral/energy intake and c.diff Signs/Symptoms as evidenced by PO meeting <50% of estimated nutrition needs x 3-4 weeks and 5% unintentional weight loss <1 month. Status Active Problem Recommendation Dietitian Will liberalize to regular diet due to acute Recommendations/ malnutrition. Changes Will continue 120mL EPHP TID with medpass. Will order manning magic cup with dinner. Will monitor weight trends. Lab / Micro Data 09/22/25 07:20 09/22/25 07:20 Labs: Laboratory Results - last 24 hr 09/22/25 07:20: Differential Comment SCANNED, Sodium 137, Potassium 3.5, C hloride 109 H, Carbon Dioxide 17.8 L, Anion Gap 10, BUN 11, Creatinine 0.65 L, Estim Creat Clear Calc 50.34, Est GFR (MDRD) Non-Af 86, BUN/Creatinine Ratio 17.2, Glucose 122 H, Calcium 8.2, Phosphorus 2.7, Magnesium 2.1, Total Bilirubin 0.71, AST 21, ALT 8, Alkaline Phosphatase 50, Total Protein 5.5 L, Albumin 2.3 L , Globulin 3.2, Albumin/Globulin Ratio 0.7 L Radiography Diagnostic Testing: Radiology Impression Echocardiogram 09/22/25 00:50 Interpretation Summary Normal LV size. Left ventricular systolic function is normal. The left ventricular ejection fraction is 60 %. Mild focal aortic valve thickening. Ordering Physician: Frieda Gallegos Referring Physician: Juju Lopez Performed By: Antoinette Obrien RDCS, RVT Rhythm Strip Rhythm Strip: A-fib Rate: 174 Ectopy: None Physical Exam Const alert and no apparent distress Resp normal respiratory effort, no retractions, no use of accessory muscles and clear to auscultation bilaterally Cardio regular rate, regular rhythm, S1 normal heart sound and S2 normal heart sound GI normal to inspection, nondistended, normoactive bowel sounds, soft to palpation, non-tender and non-distended Assessment & Plan Assessment/Plan (1) Recurrent colitis due to Clostridioides difficile: (2) Leukocytosis: (3) Atrial fibrillation with RVR: (4) Elevated troponin: PLAN: Plan A-fib with RVR * Was difficult to control despite dilt bolus and gtt, then amio bolus and gtt plus dig. Now improved with metoprolol succinate 50 (up from 12.5) and amiodarone. * Cardiology consulted. * Continue home metoprolol and apixaban. * TSH WNL. * Echo shows an EF 60%. Recurrent C. difficile colitis * positive as outpt. * Continue vancomycin 125 mg every 6 hours liquid Troponin elevation * mild elevation 2/2 demand from afib w RVR. trending down. Fall/generalized weakness/debility * PT OT CM. Chronic medical conditions: * Seizure disorder- Continue home Keppra * Essential hypertension/hyperlipidemia- Continue home beta-lucinda- Continue home pravastatin * Macular degeneration- Patient is undergoing intraocular injections every 2 months- Continue outpatient follow-up * Osteoporosis- Is on Prolia as an outpatient every 6 months- Continue cholecalciferol supplementation * History of acute right MCA stroke- Mild left-sided weakness as a result- Suspect cardioembolic related to A-fib- Continue Eliquis * History of KEVEN- No CPAP available- Order if patient is able to bring in home unit * Recurrent UTIs follow up w [facility]IR[facility]. * Depression- Continue home Cymbalta DVT prophylaxis - continue home apixaban CODE STATUS - DNR CCA with no intubation as per discussion with patient and her daughter who is POA at the time of admission Charges/Coding Visit Charges Inpatient E&M: 04270 Subs Hosp L2
[2025-09-23] MEDS: Ensure Plus High Protein 120 ML LIQUID PO ×2 (08:10→11:49)
[2025-09-23] MEDS: Calcium Carb/Vitamin D 1 TABLET Tablet PO (08:12)
[2025-09-23] MEDS: APIXABAN 5 MG TABLET PO (08:12)
[2025-09-23] MEDS: Cholecalciferol (VIT D3) 25 MCG TABLET (1,000 UNITS) PO (08:12)
[2025-09-23] MEDS: Metoprolol(XL)Succ 50 MG Tablet PO (08:14)
[2025-09-23] MEDS: 0.9% Saline Lock 10 ML Syringe IV (08:29)
--- NOTE | 2025-09-23 10:15 | CASEMGMT ---
RN CM updated DC Real Estate Branch Manager to send referral to [facility] for skilled level of care with plan to transition to LTC. Awaiting response.
--- NOTE | 2025-09-23 10:26 | CASEMGMT ---
Addendum entered by Kaela Minor 09/23/25 11:45: [facility] has accepted. Since pt will transition to ltc, she will be admitted to a semi-private ltc bed and will be skilled from there. RUPA CM updated. Kaela Minor DC Planning Asst. Original Note: Discharge Planning Referral sent via [facility]Port to [facility]. Kaela Minor DC Planning Asst.
[2025-09-23] MEDS: Vancomycin 125 MG/5 ML Susp PO.SYRINGE PO ×2 (11:49→14:53)
--- NOTE | 2025-09-23 13:26 | CASEMGMT ---
Addendum entered by Chelsey Vargas 09/23/25 16:13: RUPA MARQUEZ received precert from [facility] for patient to admit to [facility] for skilled level of care, auth is good from 09/23-09/26/25. Ref# [id number]. RUPA MARQUEZ updated hospitalist, discharge order received and signed medlist. RUPA MARQUEZ updated DC pre planning advisor to updated W and family and to schedule transport. Original Note: RUPA MARQUEZ received notification that [facility] is able to accept patient and will have at semiprivate LTC but with admit patient for skilled LOC. RUPA MARQUEZ in to updated daughter Marylou and is agreeable to to semiprivate room at [facility]. Daughter had no further questions or concern. RUPA MARQUEZ updated DC syrup mixer assistant that family is okay with semiprivate room. RUPA MARQUEZ submitted precert to [facility], awaiting approval.
--- NOTE | 2025-09-23 14:52 | TREXTCAR_ITS ---
Diet Diet Order/Speech Therapy: INPATIENT Hospital Diet / Speech Therapy Order(s) 09/22/25 14:02 Diet: Regular - General Food consistency:: Easy to Chew Liquid Consistency:: Regular/Thin Type of Dietary Supplement:: Magic Cup Dessert Diet Comments: manning magic cup with dinner Speech Therapy Comments: Moisten Dry Textures, Distant sup, Meds whole in DC O2, CPAP, BIPAP needs Home O2 Discharge instructions: No Therapies Weight Bearing: Full weight bearing Physical Therapy: Eval and Treat Occupational Therapy: Eval and Treat Problem/Diagnosis (1) Recurrent colitis due to Clostridioides difficile: Status: Acute Code(s): A04.71 - Enterocolitis due to Clostridium difficile, recurrent (2) Leukocytosis: Status: Acute Code(s): D72.829 - Elevated white blood cell count, unspecified (3) Atrial fibrillation with RVR: Status: Acute Code(s): I48.91 - Unspecified atrial fibrillation (4) Elevated troponin: Status: Acute Code(s): R79.89 - Other specified abnormal findings of blood chemistry Plan A-fib with RVR * Was difficult to control despite dilt bolus and gtt, then amio bolus and gtt plus dig. Now improved with metoprolol succinate 50 (up from 12.5) and amiodarone. * Cardiology consulted. * Continue home metoprolol and apixaban. * TSH WNL. * Echo shows an EF 60%. Recurrent C. difficile colitis * positive as outpt. * Continue vancomycin 125 mg every 6 hours liquid Troponin elevation * mild elevation 2/2 demand from afib w RVR. trending down. Fall/generalized weakness/debility * PT OT CM. Chronic medical conditions: * Seizure disorder- Continue home Keppra * Essential hypertension/hyperlipidemia- Continue home beta-lucinda- Continue home pravastatin * Macular degeneration- Patient is undergoing intraocular injections every 2 months- Continue outpatient follow-up * Osteoporosis- Is on Prolia as an outpatient every 6 months- Continue cholecalciferol supplementation * History of acute right MCA stroke- Mild left-sided weakness as a result- Suspect cardioembolic related to A-fib- Continue Eliquis * History of KEVEN- No CPAP available- Order if patient is able to bring in home unit * Recurrent UTIs follow up w . * Depression- Continue home Cymbalta DVT prophylaxis - continue home apixaban CODE STATUS - DNR CCA with no intubation as per discussion with patient and her daughter who is POA at the time of admission Allergies/Procedures Done in Hospital Allergies No Known Allergies Allergy (Verified 09/05/25 10:35) Type of Care/Length of Stay Estimated LOS: Convalescent Care Less Than 30 days Type of Care Needed: Skilled Rehab Potential: Fair Prognosis: Fair Additional Orders/Day of Discharge Day of Discharge: 09/23/25 Dietary and Speech Recommendations Dietitian Recommendations/Changes: Will liberalize to regular diet due to acute malnutrition. Will continue 120mL EPHP TID with medpass. Will order manning magic cup with dinner. Will monitor weight trends. Discharge Plan Admission Admit Date/Time: 09/21/25 23:56 Primary Reason for Your Visit: Afib with RVR. cdiff colitis. Attending Provider: Thomas Petty Primary Care Provider: Juju Lopez Consulting Providers: Frieda Gallegos; Alfred Rick Discharge Orders/Prescriptions Prescriptions: New acetaminophen 325 mg Tablet 650 mg PO Q6H PRN PRN (Reason: Pain 1-10 Or Fever>100.7) Qty: 0 0RF amiodarone 200 mg Tablet 200 mg PO DAILY Qty: 0 0RF metoprolol succinate 50 mg Tablet Extended Release 24 Hr 50 mg PO DAILY Qty: 0 0RF Ensure Plus High Protein 0.08 gram-1.5 kcal/mL Liquid 120 ml PO TIDCM Qty: 0 0RF ondansetron 4 mg tablet,disintegrating 4 mg PO Q8H PRN (Reason: nausea and vomiting) Qty: 30 0RF Continued duloxetine [Cymbalta] 30 mg capsule,delayed release(DR/EC) 30 mg PO BID apixaban 5 mg tablet 5 mg PO BID Qty: 180 3RF pravastatin 10 mg tablet 10 mg PO QODAY Patient Comments: had day before Coral Calcium 133 mg calcium -133 unit-67 mg capsule 1 cap PO DAILY Prolia 60 mg/mL syringe 60 mg subcut [id number] levetiracetam 250 mg tablet 500 mg PO QPM cholecalciferol (vitamin D3) 125 mcg (5,000 unit) tablet 25 mcg PO QDAY cyanocobalamin (vitamin B-12) 1,000 mcg tablet 1,000 mcg PO QDAY Fish Oil Extra Strength 435-880 mg capsule PO vit C,E-Sd-lhgvy-lutein-zeaxan 1 EACH capsule 1 ea PO BID Syfovre (PF) 15 mg /0.1 mL solution 15 mg intravitreal [id number] Patient Comments: gets shot once every 8weeks in each eye levetiracetam 250 mg tablet 250 mg PO DAILY acetaminophen 500 mg Tablet 1,000 mg PO Q6H PRN PRN (Reason: Pain Score 1-10) Qty: 0 0RF Changed vancomycin 125 mg capsule 125 mg PO Q6H Qty: 36 0RF Rx Instructions: through 10/03/2025 Discontinued metoprolol succinate 25 mg tablet extended release 24 hr 12.5 mg PO DAILY Qty: 45 3RF Referrals / Follow Up: [facility] [Provider Group] - Within 1 Month Juju Lopez DO [Primary Care Provider, Medical] - Within 2 Weeks Disposition Disposition (needs filled in before D/C Order can be placed): [facility]
--- NOTE | 2025-09-23 15:20 | CHAPLAIN ---
Type of Pastoral Visit _x__ Initial Visit ___ Follow-up Visit ___ On-call Visit ___ General Patient Visit ___ Spiritual Assessment ___ Family Conference ___ Bereavement ___ Rapid Response ___ Code Blue ___ Other (describe below) Pastoral Care Referral From _x__ Patient ___ Family ___ Nurse ___ Physician ___ Jig Grinder ___ Meat Grinder ___ Other (describe below) Sacrament/Intervention _x__ Active listening ___ Anointing ___ Protestant ___ Bereavement ___ Communion ___ Mayela exploration ___ ___ Life review _x__ Prayer ___ Reconciliation ___ Sacrament of Sick _x__ Supportive presence ___ Wedding ___ Other (describe below) Pastoral Comments patient has been seen before and she gives some updates on her health; a daughter is with her at this time; pt believes that she can go home again soon; would ask how others see this as patient may not be aware of her limitations; prayer and presence welcomed
--- NOTE | 2025-09-23 15:27 | DS.PCM_ITS ---
Providers Date of Admission: 09/21/25 Primary Care Physician: Dr. Juju Lopez, Consultations 09/22/25 14:28 Consult: Cardiology Routine Consulting Provider: Alfred Rick Reason for Consult: afib EMERGENT Consult: No MD Notified: Yes Date Notified: 09/22/25 Time Notified: 14:28 Method of Notification: Verbal Reason For Visit: AFIB WITH RVR Diagnosis Discharge Diagnosis (1) Recurrent colitis due to Clostridioides difficile: Status: Acute Code(s): A04.71 - Enterocolitis due to Clostridium difficile, recurrent (2) Leukocytosis: Status: Acute Code(s): D72.829 - Elevated white blood cell count, unspecified (3) Atrial fibrillation with RVR: Status: Acute Code(s): I48.91 - Unspecified atrial fibrillation (4) Elevated troponin: Status: Acute Code(s): R79.89 - Other specified abnormal findings of blood chemistry Plan A-fib with RVR * Was difficult to control despite dilt bolus and gtt, then amio bolus and gtt plus dig. Now improved with metoprolol succinate 50 (up from 12.5) and amiodarone. * Cardiology consulted. * Continue home metoprolol and apixaban. * TSH WNL. * Echo shows an EF 60%. Recurrent C. difficile colitis * positive as outpt. * Continue vancomycin 125 mg every 6 hours liquid Troponin elevation * mild elevation 2/2 demand from afib w RVR. trending down. Fall/generalized weakness/debility * PT OT CM. Chronic medical conditions: * Seizure disorder- Continue home Keppra * Essential hypertension/hyperlipidemia- Continue home beta-lucinda- Continue home pravastatin * Macular degeneration- Patient is undergoing intraocular injections every 2 months- Continue outpatient follow-up * Osteoporosis- Is on Prolia as an outpatient every 6 months- Continue cholecalciferol supplementation * History of acute right MCA stroke- Mild left-sided weakness as a result- Suspect cardioembolic related to A-fib- Continue Eliquis * History of KEVEN- No CPAP available- Order if patient is able to bring in home unit * Recurrent UTIs follow up w . * Depression- Continue home Cymbalta DVT prophylaxis - continue home apixaban CODE STATUS - DNR CCA with no intubation as per discussion with patient and her daughter who is POA at the time of admission Discharge to [facility] in stable condition. Patient will have a private room while active with C diff. Medications at Discharge Home Medications vit C 250 mg-vit E 90 mg-zinc 40 mg-copper 1 ed-ozhrhr-cyagiy capsule 1 ea PO BID eye vitamin 05/07/18 apixaban 5 mg tablet 5 mg PO BID blood thinner #180 tabs 12/04/19 pravastatin 10 mg tablet 10 mg PO QODAY CHOLESTEROL 01/12/21 calcium carb 133 mg-vitD3 133 unit-mag amino acid chelate 67mg capsule (Coral Calcium) 1 cap PO DAILY Supplement 02/08/22 duloxetine 30 mg capsule,delayed release (Cymbalta) 30 mg PO BID Depression 02/08/22 denosumab 60 mg/mL subcutaneous syringe (Prolia) 60 mg subcut [id number] Osteoporosis 05/02/23 levetiracetam 250 mg tablet 250 mg PO DAILY Seizures 07/10/24 acetaminophen 500 mg tablet 1,000 mg (2 x 500 mg) PO Q6H PRN PRN Pain Score 1-10 #0 tabs 07/30/24 cholecalciferol (vitamin D3) 125 mcg (5,000 unit) tablet 25 mcg PO QDAY 09/21/24 cyanocobalamin (vitamin B-12) 1,000 mcg tablet 1,000 mcg PO QDAY 09/21/24 levetiracetam 250 mg tablet 500 mg PO QPM 09/21/24 omega-3 fatty acids-fish oil 435 mg-880 mg capsule (Fish Oil Extra Strength) cap PO 09/21/24 pegcetacoplan (PF) 15 mg/0.1 mL intravitreal solution (Syfovre (PF)) 15 mg intravitreal [id number] Eyes 09/21/24 acetaminophen 325 mg tablet 650 mg (2 x 325 mg) PO Q6H PRN PRN Pain 1-10 Or Fever>100.7 #0 tabs 09/23/25 amiodarone 200 mg tablet 200 mg PO DAILY #0 tabs 09/23/25 food supplemt, lactose-reduced 0.08 gram-1.5 kcal/mL oral liquid (Ensure Plus High Protein) 120 ml PO TIDCM #0 mL 09/23/25 metoprolol succinate 50 mg tablet,extended release 24 hr 50 mg PO DAILY #0 tabs 09/23/25 ondansetron 4 mg disintegrating tablet 4 mg PO Q8H PRN nausea and vomiting #30 tabs 09/23/25 vancomycin 125 mg capsule 125 mg PO Q6H #36 caps 09/23/25 Hospital Course Operations None Procedures 2-D Echocardiogram Summary of Care Provided Hospital Course: Greater than 30 minutes spent on discharge. This is an 85-year old female that was recently diagnosed with C diff. Presented here w afib w RVR. Eventaully controlled with PO amio and metoprolol. Patient will continue PO vancomycin. Medical Records Data Medical Nutrition Assessment Dietitian: Malnutrition Criteria Met Start: 09/22/25 14:07 Freq: Status: Active Protocol: Document 09/22/25 14:07 SB (Rec: 09/22/25 14:07 SB [id number]) Nutrition Malnutrition Evidence of Yes Malnutrition Exists Malnutrition (severe Acute Illness/Injury ): Evidenced By Suboptimal Energy Intake (Severe),Weight Loss (Severe) Clinical Problem Acute Disease or Injury Related Malnutrition Etiology severe malnutrition related to inadequate oral/energy intake and c.diff Signs/Symptoms as evidenced by PO meeting <50% of estimated nutrition needs x 3-4 weeks and 5% unintentional weight loss <1 month. Status Active Problem Recommendation Dietitian Will liberalize to regular diet due to acute Recommendations/ malnutrition. Changes Will continue 120mL EPHP TID with medpass. Will order manning magic cup with dinner. Will monitor weight trends. Weight / BMI Weight Weight: 79.2 kg Body Mass Index (BMI) 29.9 ABG / Lab / Microbiology Data 09/22/25 07:20 09/22/25 07:20 Microbiology: Microbiology 09/23/25 11:50 Stool C. difficile GDH Antigen & Toxins - Final 09/23/25 11:50 Stool Clostridioides difficile (PCR) - Final Radiography Diagnostic Testing: Radiology Impression Echocardiogram 09/22/25 00:50 Interpretation Summary Normal LV size. Left ventricular systolic function is normal. The left ventricular ejection fraction is 60 %. Mild focal aortic valve thickening. Ordering Physician: Frieda Gallegos Referring Physician: Juju Lopez Performed By: Antoinette Obrien, KRYSTLECS, RVT D/C Instructions DC O2, CPAP, BIPAP Needs Home O2 Discharge instructions: No Meaningful Use Info Meaningful Use Meaningful Use Diagnoses (Choose all that apply): None applicable Discharge Plan Admission Admit Date/Time: 09/21/25 23:56 Primary Reason for Your Visit: Afib with RVR. cdiff colitis. Attending Provider: Thomas Petty Primary Care Provider: Juju Lopez Consulting Providers: Frieda Gallegos; Alfred Rick Discharge Orders/Prescriptions Prescriptions: New acetaminophen 325 mg Tablet 650 mg PO Q6H PRN PRN (Reason: Pain 1-10 Or Fever>100.7) Qty: 0 0RF amiodarone 200 mg Tablet 200 mg PO DAILY Qty: 0 0RF metoprolol succinate 50 mg Tablet Extended Release 24 Hr 50 mg PO DAILY Qty: 0 0RF Ensure Plus High Protein 0.08 gram-1.5 kcal/mL Liquid 120 ml PO TIDCM Qty: 0 0RF ondansetron 4 mg tablet,disintegrating 4 mg PO Q8H PRN (Reason: nausea and vomiting) Qty: 30 0RF Continued duloxetine [Cymbalta] 30 mg capsule,delayed release(DR/EC) 30 mg PO BID apixaban 5 mg tablet 5 mg PO BID Qty: 180 3RF pravastatin 10 mg tablet 10 mg PO QODAY Patient Comments: had day before Coral Calcium 133 mg calcium -133 unit-67 mg capsule 1 cap PO DAILY Prolia 60 mg/mL syringe 60 mg subcut [id number] levetiracetam 250 mg tablet 500 mg PO QPM cholecalciferol (vitamin D3) 125 mcg (5,000 unit) tablet 25 mcg PO QDAY cyanocobalamin (vitamin B-12) 1,000 mcg tablet 1,000 mcg PO QDAY Fish Oil Extra Strength 435-880 mg capsule PO vit C,R-Oo-atjnx-lutein-zeaxan 1 EACH capsule 1 ea PO BID Syfovre (PF) 15 mg /0.1 mL solution 15 mg intravitreal [id number] Patient Comments: gets shot once every 8weeks in each eye levetiracetam 250 mg tablet 250 mg PO DAILY acetaminophen 500 mg Tablet 1,000 mg PO Q6H PRN PRN (Reason: Pain Score 1-10) Qty: 0 0RF Changed vancomycin 125 mg capsule 125 mg PO Q6H Qty: 36 0RF Rx Instructions: through 10/03/2025 Discontinued metoprolol succinate 25 mg tablet extended release 24 hr 12.5 mg PO DAILY Qty: 45 3RF Referrals / Follow Up: [facility] [Provider Group] - Within 1 Month Juju Lopez DO [Primary Care Provider, Medical] - Within 2 Weeks Disposition Disposition (needs filled in before D/C Order can be placed): Care Home Facility Charges/Coding Visit Charges Inpatient E&M: 05280 Disch Hosp >30min
--- NOTE | 2025-09-23 15:54 | CASEMGMT ---
Discharge Planning Discharge orders, signed med list, and transport time sent via [facility]Port to [facility]. Physicians will transport pt by cot at 4:30p. Nursing, RN CM, pt, and her daughter (Marylou) updated. Kaela Minor DC Planning Asst.
--- NOTE | 2025-09-23 16:08 | PHA.DC_ITS ---
Pharmacy MA Med Reconciliation Pharmacy Service has performed discharge medication reconciliation for this patient. The patient's discharge medication list was reviewed for discrepancies and discrepancies were resolved. Medications at Discharge Home Medications vit C 250 mg-vit E 90 mg-zinc 40 mg-copper 1 gw-llxzhg-didzox capsule 1 ea PO BID eye vitamin 05/07/18 apixaban 5 mg tablet 5 mg PO BID blood thinner #180 tabs 12/04/19 pravastatin 10 mg tablet 10 mg PO QODAY CHOLESTEROL 01/12/21 calcium carb 133 mg-vitD3 133 unit-mag amino acid chelate 67mg capsule (Coral Calcium) 1 cap PO DAILY Supplement 02/08/22 duloxetine 30 mg capsule,delayed release (Cymbalta) 30 mg PO BID Depression 0 02/08/22 denosumab 60 mg/mL subcutaneous syringe (Prolia) 60 mg subcut [id number] Osteoporosis 05/02/23 levetiracetam 250 mg tablet 250 mg PO DAILY Seizures 07/10/24 acetaminophen 500 mg tablet 1,000 mg (2 x 500 mg) PO Q6H PRN PRN Pain Score 1-10 #0 tabs 07/30/24 cholecalciferol (vitamin D3) 125 mcg (5,000 unit) tablet 25 mcg PO QDAY 09/21/24 cyanocobalamin (vitamin B-12) 1,000 mcg tablet 1,000 mcg PO QDAY 09/21/24 levetiracetam 250 mg tablet 500 mg PO QPM 09/21/24 omega-3 fatty acids-fish oil 435 mg-880 mg capsule (Fish Oil Extra Strength) cap PO 09/21/24 pegcetacoplan (PF) 15 mg/0.1 mL intravitreal solution (Syfovre (PF)) 15 mg intravitreal [id number] Eyes 09/21/24 acetaminophen 325 mg tablet 650 mg (2 x 325 mg) PO Q6H PRN PRN Pain 1-10 Or Fever>100.7 #0 tabs 09/23/25 amiodarone 200 mg tablet 200 mg PO DAILY #0 tabs 09/23/25 food supplemt, lactose-reduced 0.08 gram-1.5 kcal/mL oral liquid (Ensure Plus High Protein) 120 ml PO TIDCM #0 mL 09/23/25 metoprolol succinate 50 mg tablet,extended release 24 hr 50 mg PO DAILY #0 tabs 09/23/25 ondansetron 4 mg disintegrating tablet 4 mg PO Q8H PRN nausea and vomiting #30 tabs 09/23/25 vancomycin 125 mg capsule 125 mg PO Q6H #36 caps 09/23/25
--- NOTE | 2025-09-23 16:22 | CASEMGMT ---
Social Work- completed 7000 for d/c. RNCM notified. DCA to complete all arrangements and notifications. BRENNEN Goncalves
--- NOTE | 2025-09-23 17:01 | NURSING ---
Report called to nurse at [facility]
--- NOTE | 2025-09-23 17:08 | NURSING ---
squad here to take patient report given
== END 2025-09-23 17:30 | disposition skilled nursing facility (03) | DRG 308 ==
LOC: ED 21:22 → PCU 09-22 00:23
PROVIDERS: Admitting Provider Internal Medicine; Emergency Provider Emergency Medicine; PCP Family Medicine
DX: I48.0 Paroxysmal atrial fibrillation (principal); E43 Unspecified severe protein-calorie malnutrition; A04.71 Enterocolitis due to Clostridium difficile, recurrent; I24.89 Other forms of acute ischemic heart disease; I69.954 Hemiplegia and hemiparesis following unspecified cerebrovascular disease affecting left non-dominant side; Z66 Do not resuscitate; G40.909 Epilepsy, unspecified, not intractable, without status epilepticus; I10 Essential (primary) hypertension; F32.A Depression, unspecified; E78.5 Hyperlipidemia, unspecified; H35.30 Unspecified macular degeneration; G47.33 Obstructive sleep apnea (adult) (pediatric); M81.0 Age-related osteoporosis without current pathological fracture; R29.6 Repeated falls; Z68.29 Body mass index [BMI] 29.0-29.9, adult; Z79.01 Long term (current) use of anticoagulants; Z79.899 Other long term (current) drug therapy; Z87.440 Personal history of urinary (tract) infections
CPT/HCPCS: 36415; 70450; 71045; 72170; 80048; 80053; 81001; 83605; 83735; 84100; 84443; 84484; 85025; 85610; 85730; 87493; 92610; 93005; 93306; 97162; 97166; 97530; 97535; 97802; 99285; A4216; J2405

== ENCOUNTER → 2025-10-25 | Outpatient (CLI) | payer MEDICARE, SELFPAY ==
--- NOTE | 2025-10-25 12:00 | RAD_ITS ---
PROCEDURE: ABDOMEN SINGLE VIEW 10/25/2025 REASON FOR EXAM: SITZ DAY 3 TECHNIQUE: Procedure Code: RADABD Modality: DX Procedure: ABDOMEN SINGLE VIEW COMPARISON: None. FINDINGS: Sitz markers are noted in the ascending and transverse colon on the current exam. Moderate amount of fecal residue in the large bowels. Mild diffuse spondylosis. Normal visualized lung bases. There is an unremarkable bowel gas pattern. There is no demonstrated free abdominal air. Normal visualized liver. Normal visualized spleen. Normal visualized kidneys. The soft tissue structures of the pelvis are unremarkable. RAD/Abdomen Single View IMPRESSION: Sitz markers are noted in the ascending and transverse colon on the current exa m. Moderate amount of fecal residue in the large bowels. Reading [facility]
== END | disposition home or self-care (01) ==
LOC: RAD 12:00
PROVIDERS: PCP Family Medicine; Referring Provider Internal Medicine Gastroenterology; Visit Provider Internal Medicine Gastroenterology
DX: R19.7 Diarrhea, unspecified (principal)
CPT/HCPCS: 74018

== ENCOUNTER → 2025-10-27 | Outpatient (CLI) | payer MEDICARE, SELFPAY ==
--- NOTE | 2025-10-27 11:50 | RAD_ITS ---
PROCEDURE: ABDOMEN SINGLE VIEW 10/27/2025 REASON FOR EXAM: SITZ DAY 5 TECHNIQUE: Procedure Code: RADABD Modality: DX Procedure: ABDOMEN SINGLE VIEW COMPARISON: KUB, 10/25/2025 marker day 3. FINDINGS: Sitz markers are predominantly in the left side of the abdomen, likely within the distal transverse and descending portions of the colon. There are few markers in the right mid abdomen, likely in the ascending colon. There is stool throughout the colon, predominantly in the ascending, transverse and descending portions of the colon. There are no significant bony abnormalities.. RAD/Abdomen Single View IMPRESSION: As per findings. Reading Location: [id number]
--- OUTSIDE RECORDS SUMMARY | 2025-10-27 11:54 | XMS RPT_ITS | CCD ---
Author Organization [facility] CliniSymd Care Team Providers Care Grant Specialist Name Role Phone Falguni Almendarez Unavailable Unavailable MD Raul, Augusto Shaver Unavailable Kaela Sam RN Unavailable Unavailable Pop Mckeon Unavailable Unavailable Kaela Sam RN Unavailable Unavailable RAQUEL DUMONT Unavailable Unavailable RAQUEL DUMONT Unavailable Unavailable RAQUEL DUMONT Unavailable Unavailable PROVIDER, UNKNOWN Unavailable Unavailable Raquel Dumont Unavailable Unavailable PROVIDER, UNKNOWN Unavailable Unavailable Falguni Almendarez Unavailable Unavailable MD Ralu, Augusto Shaver Unavailable RUPA Shay, Brook Vázquez Unavailable Unavailabl e Pop Mckeon Y Unavailable Unavailable Falguni Almendarez Unavailable Unavailable Falguni Almendarez Unavailable Unavailable Kaela Sam RN Unavailable Unavailable RUPA Shay, Brook Vázquez Unavailable Unavailabl e ИВАН LOPEZ DO Primary Care Physician ИВАН LOPEZ DO Primary Care Physician [phone] LYNDSEY LOPEZ DOISTIN Primary Care Unavailable JESSICA DOLYNDSEYИВАН Attending Unavailable JESSICALYNDSEY DUNCAN DOISTIN Attending Unavailable JESSICA DO ИВАН Primary Care Unavailable JESSICA DO ИВАН Primary Care Unavailable JESSICA DO ИВАН Attending Unavailable JESSICA DO, ИВАН Primary Care Unavailable JESSICA DO, ИВАН Attending Unavailable JESSICA DO, ИВАН Attending Unavailable JESSICA DO ИВАН Primary Care Unavailable JESSICA ASHLEY ИВАН Attending Unavailable LYNDSEY LOPEZ DOISTIN Primary Care Unavailable Иван Lopez DO Primary Care Provider [phone] TOI MILLER Attending Unavailable JESSICA, ИВАН Primary [...] JESSICA DO, ИВАН Primary Care Unavailable ROCK 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 MANAGER, LERROXANNE Attending Unavailabl e JESSICA DO, ИВАН Primary Care Unavailable ROCK 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 MANAGER, LERICA Attending Unavailabl e JESSICA DO, ИВАН Attending Unavailable JESSICA DO, ИВАН Primary Care Unavailable Alfred Rick Attending Unavailable Roof, Tai H Referring Unavailable Jessica, Иван Primary Care Unavailable Roof, Tai H Attending Unavailable Roof, Tai H Referring Unavailable Jessica, Иван Primary Care Unavailable Jessica, Иван Referring Unavailable Jessica, Иван Primary Care Unavailable Roof, Tai H Attending Unavailable Jessiac, Иван Referring Unavailable Roof, Tai H Attending Unavailable Jessica, Иван Primary Care Unavailable Jessica, Иван Referring Unavailable Jessica, Иван Primary Care Unavailable Jessica, Иван Attending Unavailable Jessica, Иван Primary Care Unavailable MiriamNicci Attending Unavailable Allergies Allergy Classification Reported Allergen(s) Allergy Type Date of Onset Reaction(s) Facility (18 sources) Sulfonamides (Antibiotic); Translations: [sulfa drugs] Drug allergy Fluttering heart (finding), Asthenia (finding) [facility] (16 sources) Alendronate; Translations: [alendronate] Drug Allergy Intolerance, function (observable entity) [facility] Medications Current Medications Medication Drug Class(es) Dates [...] 13 tab(s), 3 Refill(s), [facility]acy: [facility], 163, cm, 08/11/21 9:08:00 EDT, Height, [...] 180 tab(s), 3 Refill(s), [facility]: [facility] #[id number], 161, cm, 02/26/25 10:23:00 EDT, Height, 80.1, [...] 180 tab(s), 3 Refill(s), [facility]: [facility] #[id number], 161, cm, 02/27/24 9:43:00 EDT, Height, 78.9, kg, 02/27/24 9:43:00 EDT, Dosing Weight Start Date: 02/27/24 Status: Ordered Start: 02-26-2023 Eliquis 5 mg o ral tablet Dose : 5 mg = 1 tab(s), Oral, BID, # 180 tab(s), 3 Refill(s), [facility]: [facility] #[id number], 161, cm, 02/26/23 10:53:00 EDT, Height, 77.5, kg, 02/26/23 10:39:00 EDT, Dosing Weight Start Date: 02/26/23 Status: Ordered Start: 02-16-2016 End: 12-04-2019 Eliquis 5 mg oral tablet Dos e : 5 mg = 1 tab(s), Oral, BID, # 180 tab(s), 3 Refill(s), Pharmacy: [facility] #[id number], 161, cm, 02/26/23 10:53:00 EDT, Height, 77.5, [...] Refill(s) Start Date: 02/08/22 Status: Ordered Calcium Mdtk-A3-Tkwxbefed Liset (Coral Calcium) 133 mg calcium -133 unit-67 mg capsule (1 source) Start: 02-08-2022 take 1 capsule by mouth once daily Calcium Pqbm-M1-Ojzucnqbw Liset (Coral Calcium) 133 mg calcium -133 unit-67 mg capsule Active 1 CAP PO DAILY February 07, 2022 11:00pm cephalexin 500 mg oral capsule (5 sources) Cephalosporin Antibacterial Start: 06-14-2025 End: 06-21-2025 cephalexin 500 mg oral capsule Dose : 500 mg = 1 cap(s), Oral, q8h, X 7 day(s), # 21 cap(s), 0 Refill(s), 06/21/25 12:06:00 PM EDT, Pharmacy: [facility]/pharmacy #[id number], 161, cm, 06/14/25 11:46:00 EDT, Height, [...] 0 Refill(s), 10/13/24 2:33:00 PM EST, Pharmacy: [facility] #[id number], 161, cm, 10/06/24 13:12:00 EST, Height, 79.1, kg, 10/06/24 12:59:00 EST, Dosing Weight Start Date: 10/06/24 Stop Date: 10/13/24 Status: Ordered Start: 08-24-2022 End: 08-31-2022 cephalexin 500 mg oral capsu le Dose : 500 mg = 1 cap(s), Oral, q12h, X 7 day(s), # 14 cap(s), 0 Refill(s), 08/31/22 12:22:00 EDT, Pharmacy: [facility] #[id number], 161, cm, 08/23/22 10:45:00 EDT, Height, 78 [...] neurology, # 60 cap(s), 3 Refill(s), Pharmacy: [facility] #[id number], Depression, 161.5, cm, 02/08/22 15:26:00 EDT, Height [...] tablet by mouth daily OMEGA-3 FATTY ACIDS [id number] Daylin Cespedespie CAM take 1 tablet by chandan th once daily FISH OIL 1000 MG CAPS One tablet by mouth daily OMEGA-3 FATTY ACIDS [id number] Daylin Sloan LPN Garlic preparation (4 sources) [...] th once daily TOPROL XL 25 MG [id number] One half tablet by mouth daily METOPROLOL SUCCINATE [id number] Augusto Carter MD Start: 10-15-2016 take 1 tablet by chandan th once daily TOPROL XL 25 MG [id number]-GHD One tablet by mouth daily METOPROLOL SUCCINATE [id number] Augusto Carter MD Start: 10-15-2016 take 1 tablet by chandan th once daily TOPROL XL 25 MG [id number]-THU One half tablet by mouth daily METOPROLOL SUCCINATE [id number] Augusto Carter MD Start: 10-15-2016 take 1 tablet by chandan th once daily TOPROL XL 25 MG QB69Q-XAE One tablet by mouth daily METOPROLOL SUCCINATE [id number] Augusto Carter MD Start: 03-19-2016 End: 10-15-2016 take 1 tablet by mouth once daily TOPROL XL 25 MG VL86O-TPH One tablet by mouth daily METOPROLOL SUCCINATE [id number] Augusto Carter MD Start: 03-19-2016 End: 10-15-2016 take 1 tablet by mouth once daily TOPROL XL 25 MG [id number]-PYA One half tablet by mouth daily METOPROLOL SUCCINATE [id number] Augusto Carter MD Start: 03-19-2016 take 1 tablet by chandan th once daily TOPROL XL 25 MG SO71I-MNJ One tablet by mouth daily METOPROLOL SUCCINATE [id number] Kaela Sam RN Start: 03-19-2016 take 1 tablet by chandan th once daily TOPROL XL 25 MG SL23B-WSI One half tablet by mouth daily METOPROLOL SUCCINATE [id number] Augusto Carter MD Start: 03-19-2016 take 1 tablet by chandan th once daily TOPROL XL 25 MG [id number]-DNN One half tablet by mouth daily METOPROLOL SUCCINATE [id number] Augusto Carter MD Start: 03-19-2016 take 1 tablet by chandan th once daily TOPROL XL 25 MG IJ39N-NTF One tablet by mouth daily METOPROLOL SUCCINATE [id number] Kaelahalley Sam RN Start: 03-19-2016 End: 10-15-2016 take 1 tablet by mouth once daily TOPROL XL 25 MG IM50H-EAL One half tablet by mouth daily METOPROLOL SUCCINATE [id number] Augusto Carter MD Start: 03-08-2016 End: 07-10-2017 take 25 mg by mouth once daily Metoprolol Succinate Di scontinued 25 MG PO DAILY March 07, 2016 11:00pm July 10, 2017 9:22am Halstead Q Plus (1 source) Start: 07-13-2019 take 2 tablets by mouth once daily [place] Q Plus Active 2 TABLET PO DAILY July 12, 2019 11:00pm pravastatin sodium 10 mg oral tablet (20 sources) HMG-CoA Reductase Inhibitor Start: 02-26-2025 pravastatin 10 mg oral tablet Dose : 10 mg = 1 tab(s), Oral, Every other day, # 90 tab(s), 3 Refill(s), Pharmacy: [facility] #[id number], Hypercholesterolem ia, 161, cm, 02/26/25 10:23:00 EDT, Height, kg, 02/26/25 10:10:00 EDT, Dosing Weight Start Date: 02/26/25 Status: Ordered Medication Dispense Status: Completed Quantity: 90.0 Unit: tab(s) Total Allowed Fills: 4 Fills Dispensed: 0 Indications: Pure hypercholesterolem ia, unspecified; Start: 02-27-2024 pravastatin 10 mg oral tablet Dose : 10 mg = 1 tab(s), Oral, Every other day, # 90 tab(s), 3 Refill(s), Pharmacy: [facility] #[id number], Hypercholesterolemia, 161, cm, 02/27/24 9:43:00 EDT, Height, kg, 02/27/24 9:43:00 EDT, Dosing Weight Start Date: 02/27/24 Status: Ordered Start: 01-12-2021 pravastatin 10 mg oral tablet Dose : 10 mg = 1 tab(s), Oral, Every other day, # 90 tab(s), 3 Refill(s), Pharm[facility]: [facility] #[id number], Hypercholesterolemia, 161, cm, 02/26/23 10:53:00 EDT, Height, [...] MG TAB S on hold PRAVASTATIN SODIUM [id number] Kaela Sam RN Start: 02-16-2016 End: 10-20-2018 [...] 0 Refill(s), 06/26/25 10:34:00 AM EDT, Pharmacy: [facility]/pharmacy #[id number], Diarrhea, 161, cm, 06/14/25 11:46:00 EDT, Height, 76, kg, 06/14/25 11:46:00 EDT, Dosing Weight Start Date: 06/16/25 Stop Date: 06/26/25 Status: Ordered Medication Dispense Status: Completed Quantity: 40.0 Unit: cap(s) Total Allowed Fills: 1 Fills Dispensed: 0 Indications: Diarrhea, unspecified; Vit C,J-Nn-Wokhw-Lutei n-Zeaxan (1 source) Start: 05-07-2018 Vit C,I-Vg-Roief-Lutein -Zeaxan Active 1 EACH PO TWICE A [...] One tablet by mouth daily AMIODARONE HCL [id number] Augusto Carter MD Start: 02-16-2016 End: 03-08-2016 [...] 15, 2016 11:00pm March 08, 2016 8:11am Kfg01-Rvs E 100 mg-10 Unit Sfg (1 source) Start: 07-10-2017 End: 02-22-2018 take 1 tablet by mouth every other day Gzj47-Wjr E 100 mg-10 Unit Sfg Discontinued 1 [...] Ordered docusate sodium 50 mg / sennosides, fdc 8.6 mg oral tablet (20 sources) Start: 03-19-2016 End: 03-23-2016 take 2 tablets by mouth once daily as needed, then take 8.6-50 tablets by mouth as needed SENOKOT S 8.6-50 MG TABS 2 tablets by mouth daily, as needed SENNOSIDES-DOCUSATE SODIUM [id number] Augusto Carter MD Start: 03-19-2016 End: 03-23-2016 take 2 tablets by mouth once daily as needed, then take 8.6-50 tablets by mouth as needed SENOKOT S 8.6-50 MG TABS 2 tablets by mouth daily, as needed SENNOSIDES-DOCUSATE SODIUM [id number] Augusto Carter MD Start: 03-19-2016 take 2 tablets by [facility] once daily as needed, then take 8.6-50 tablets by mouth as needed SENOKOT S 8.6-50 MG TABS 2 tablets by mouth daily, as needed SENNOSIDES-DOCUSATE SODIUM [id number] Kaela Sam RN Start: 03-19-2016 take 2 tablets by mo uth once daily as needed, then take 8.6-50 tablets by mouth as needed SENOKOT S 8.6-50 MG TABS 2 tablets by mouth daily, as needed SENNOSIDES-DOCUSATE SODIUM [id number] Kaela Sam RN Start: 03-19-2016 End: 03-23-2016 take 2 tablets by mouth once daily as needed, then take 8.6-50 tablets by mouth as needed SENOKOT S 8.6-50 MG TABS 2 tablets by mouth daily, as needed SENNOSIDES-DOCUSATE SODIUM [id number] Augusto Carter MD Start: 03-08-2016 End: 02-22-2018 [...] /ACT SUSP Take as directed FLUTICASONE PROPIONATE [id number] Kaela Sam RN Start: 03-19-2016 FLONASE 50 MCG /ACT SUSP Take as directed FLUTICASONE PROPIONATE [id number] Kaela Sam RN Start: 03-08-2016 End: 02-24-2018 [...] One tablet by mouth daily LUTEIN TABS 58076901926 Augusto Carter MD Start: 03-23-2016 End: 08-05-2017 take 1 tablet by mouth once daily LUTEIN TABS One tablet by mouth daily LUTEIN TABS 86390181206 Augusto Carter MD Start: 03-23-2016 End: 08-05-2017 take 1 tablet by mouth once daily LUTEIN TABS One tablet by mouth daily LUTEIN TABS 00773003384 Augusto Carter MD Start: 03-23-2016 take 1 tablet by chandan th once daily LUTEIN TABS One tablet by mouth daily LUTEIN TABS 41363259727 Augusto Carter MD meclizine hydrochloride 12.5 mg [...] daily as needed for dizziness MECLIZINE HCL [id number] Augusto Carter MD [facility] [employer] (5 sources) take 2 tablets by mouth once daily JOINT SUPPORT COMPLEX CAPS Two tablets by mouth daily [facility] [employer] [employer] [id number] Jaylyn Vázquez Alam MISC NATURAL PRODUCTS (8 sources) take 2 tablets by mouth once daily JOINT SUPPORT COMPLEX CAPS Two tablets by mouth daily [facility] [employer] [id number] Jaylyn Vázquez Alaciro MULTIPLE VITAMIN (5 sources) take 1 tablet by mouth once daily MULTIVITAMINS TABS One tablet by mouth daily MULTIPLE VITAMIN 39621385140 Daylin Sloan LPN MULTIPLE VITAMIN (8 sources) take 1 tablet by mouth once daily MULTIVITAMINS TABS One tablet by mouth daily MULTIPLE VITAMIN [id number] Daylin Sloan LPN Multivitamin preparation (1 source) Start: 6 End: 8 Multivitamin Discontinued 1 EACH PO DAILY February 15, 2016 11:00pm February 24, 2018 10:11am nystatin [id number] unt/ml topical cream (6 sources) Polyene Antifungal Start: 4 End: 5 nystatin 100,000 units/g topical cream Apply 1 ruby, Topical, BID, PRN Rash, Apply to the affected area twice daily until healing complete., # 30 gram(s), 1 Refill(s), [id number], Cream, 161, cm, 10/06/24 13:12:00 EST, Height, 79.1, kg, 10/06/24 12:59:00 EST, Dosing Weight Start Date: 10/06/24 Stop Date: 12/05/24 Status: Ordered Medication Dispense Status: Completed Quantity: 30.0 Unit: g Total Allowed Fills: 2 Fills Dispensed: 0 OMEGA-3 FATTY ACIDS (7 sources) take 1 tablet by mouth once daily FISH OIL 1000 MG CAPS One tablet by mouth daily OMEGA-3 FATTY ACIDS [id number] Daylin Sloan FITNESS SALES CONSULTANT [place]-3 Fatty Acids-Fish Oil (1 source) Start: 7 End: 1 take 1 tablet by mouth once daily [place]-3 Fatty Acids-Fish Oil Discontinued 1 TABLET PO [...] 02-08-2022 Chronic Other aftercare (7 sources) Other penitentiary (current) drug therapy; Translations: [custodial (current) use of anticoagulants] Onset: 04-06-2016 04-06-2016 [...] (8 sources) Long-term drug therapy; Translations: [Other grounds maintenance worker (current) drug therapy] Onset: 04-06-2016 04-06-2016 Unclassified [...] sites No growth in 5 days. Normal [facility] Comment on above: Performed By: #### M 100.636, M200.1000 #### [facility] [place], [address] Culture, Blood (WB)on 2024 CUB Blood cultures x2, f rom two different sites Aerobic Bottle has Gram Positive Cocci in Clusters. Culture, Blood (WB) RESULTS CALLED TO RUPA Ruiz AND SENT TO NURSES STATION ED-RT03 09/06/25 2932 Brenda Lang. REPORT READ BACK. STAPHYLOCOCCUS AUREUS [...] <=10 S Vancomycin Islt BENEDICT 2 S [facility] Comment on above: Performed By: #### M 100.636, M200.1000 #### [facility] [address] [place], [place], [address] BC GPC IDon 09-06-2025 BC GPC ID Copy of report sent to Infection Control Printer [id number] 09/06/25 5547 LEONARDO. Microorganism Spec Cult RESULTS CALLED TO LIQUOR MAKERRUPA DEGROOT AND SENT TO ED PRT-03 09/06/25 7324 Brenda Lang. REPORT READ BACK. Microorganism Spec [...] final has been changed. 09/08/25 1259 by [facility] Comment on above: Performed By: #### M 100.636, M200.1000 #### [facility] [address] [place], [place], [id number] 12 Lead EKGon 09-05-2025 12 Lead EKG [facility] Cardiovascular Services [address] [place] [address] 12 Lead EKG 09/05/25 1116 MR#: [id number] Acct: [id number] Name: HENRY DEGROOT Rep #: [id number] : 1940 85 From: Jhon Guan MD [...] Borderline ECG Confirmed by Jhon Guan ([id number]), newspaper or periodical editor CAS CONTRERAS ([id number]) on 09/06/2025 1:13:27 PM Referred By: Confirmed By: Jhon Guan 09/06/25 1313 Date Jhon Guan MD CC: Dr. Nicci Pineda MD; Dr. Иван Lopez, Signed [facility] Brain/Head without Contrasto n 09-05-2025 Brain/Head without Contrast [facility] Imaging Services [address] [place] [address] Brain/Head without Contrast MR#: [id number] Acct: [id number] Name: HENRY DEGROOT Rep #: [id number] : 1940 F 85 From: Ricardo Jessica MD PCP: Dr. Иван Lopez DO Status: REG ER Study: Brain/Head without Contrast Date of Exam: 12/29 Exam# [id number] Ordering Dr: Nicci Pineda MD EXAM: BRAIN/HEAD [...] an acute, large territorial infarct. There are [id number], diffuse, symmetrical, periventricular and subcortical white matter [...] should additional information be required. Reading Location: [facility] CC: Dr. Nicci Pineda MD; Dr. Иван Lopez DO Nuclear Technologist: Signed Normal [facility] CBC W/Diff, Automatedon 11-0 Absolute Lymph 0.62 X10 3/uL Low 0.83-4.51 [facility] Comment on above: Performed By: #### L 503.6005, L100.0100, L500.4050 #### [facility] [address] [place], [address] Absolute Neut 7.0 X10 3/uL Normal 2.0-7.7 [facility] Comment on above: Performed By: #### L 503.6005, L100.0100, L500.4050 #### [facility] [address] [place], [address] Basophils/100 WBC (Bld) 0.2 % Normal 0-1 [facility] Comment on above: Performed By: #### L 503.6005, L100.0100, L500.4050 #### [facility] [address] [place], [address] Eosinophils/100 WBC (Bld) 0.0 % Normal 0-5 [facility] Comment on above: Performed By: #### L 503.6005, L100.0100, L500.4050 #### [facility] [address] [place], [address] Erythrocyte distribution width (RBC) [Ratio] 12.3 % Normal 11.6-14.6 [facility] Comment on above: Performed By: #### L 503.6005, L100.0100, L500.4050 #### [facility] [address] [place], [address] Hematocrit (Bld) [Volume fraction] 36.7 % Low 37-47 [facility] Comment on above: Performed By: #### L 503.6005, L100.0100, L500.4050 #### [facility] [address] [place], [address] Hemoglobin (Bld) [Mass/Vol] 12.3 g/dL Normal 12.0-15.0 [facility] Comment on above: Performed By: #### L 503.6005, L100.0100, L500.4050 #### [facility] [address] [place], [address] IG% 0.500 Normal 0.0-0.9 [facility] Comment on above: Result Comment: IG% - Immature Granulocytes (promyelocytes, myelocytes and metamyelocytes) > 1% indicates that a LEFT SHIFT is Present. Performed By: #### L 503.6005, L100.0100, L500.4050 #### [facility] [address] [place], [address] Lymphocytes/100 WBC (Bld) 7.7 % Low 19-41 [facility] Comment on above: Performed By: #### L 503.6005, L100.0100, L500.4050 #### [facility] [address] [place], [address] MCH (RBC) [Entitic mass] 32.0 pg Normal 27.0-32.0 [facility] Comment on above: Performed By: #### L 503.6005, L100.0100, L500.4050 #### [facility] [address] [place], [address] MCHC (RBC) [Mass/Vol] 33.5 g/dL Normal 32-36 [facility] Comment on above: Performed By: #### L 503.6005, L100.0100, L500.4050 #### [facility] [address] [place], [address] MCV (RBC) [Entitic vol] 95.6 fL Normal 81-99 [facility] Comment on above: Performed By: #### L 503.6005, L100.0100, L500.4050 #### [facility] [address] [place], [address] Monocytes/100 WBC (Bld) 4.7 % Normal 0-10 [facility] Comment on above: Performed By: #### L 503.6005, L100.0100, L500.4050 #### [facility] [address] [place], [address] Neutrophils/100 WBC (Bld) 86.9 % High 47-70 [facility] Comment on above: Performed By: #### L 503.6005, L100.0100, L500.4050 #### [facility] [address] [place], [address] Nucleated RBC (Bld) [#/Vol] 0 10*3/uL Normal 0-5 [facility] Comment on above: Performed By: #### L 503.6005, L100.0100, L500.4050 #### [facility] [address] [place], [address] Platelet mean volume (Bld) [Entitic vol] 11.0 fL Normal 6.2-12.0 [facility] Comment on above: Performed By: #### L 503.6005, L100.0100, L500.4050 #### [facility] [address] [place], [address] Platelets (Bld) [#/Vol] 240 10*3/uL Normal 150-450 [facility] Comment on above: Performed By: #### L 503.6005, L100.0100, L500.4050 #### [facility] [address] [place], [address] RBC (Bld) [#/Vol] 3.84 10*6/uL Low 4.2-5.4 [facility] Comment on above: Performed By: #### L 503.6005, L100.0100, L500.4050 #### [facility] [address] [place], [address] RDW SD 42.6 fl Normal 35.1-43.9 [facility] Comment on above: Performed By: #### L 503.6005, L100.0100, L500.4050 #### [facility] [address] [place], [address] WBC (Bld) [#/Vol] 8.0 10*3/uL Normal 4.4-11.0 [facility] Comment on above: Performed By: #### L 503.6005, L100.0100, L500.4050 #### [facility] [address] [place], [place], [address] CT Chest, Abd, Pel w/Contras ton 09-05-2025 CT Chest, Abd, Pel w/Contrast [facility] Imaging Services [address] [place] [address] CT Chest, Abd, Pel w/Contrast MR#: [id number] Acct: [id number] Name: HENRY DEGROOT Rep #: [id number] : 1940 F 85 From: Shilo Reed DO PCP: Dr. Иван Lopez DO Status: [facility] ER Study: CT Chest, Abd, Pel w/Contrast Date of Exam: Exam# [id number] Ordering Dr: Nicci Pineda MD PROCEDURE: CT [...] bleeding. Chronic left rib fractures. Reading Location: [facility] CC: Dr. Nicci Pineda MD; Dr. Иван Lopez DO Nuclear Technologist: Signed Normal [facility] Comprehensive Metabolic Prof ilon 09-05-2025 Albumin [Mass/Vol] 3.1 g/dL Low 3.4-4.8 [facility] Comment on above: Performed By: #### L 503.6005, L100.0100, L500.4050 #### [facility] [address] [place], [place], [id number] Albumin/Globulin [Mass ratio] 1.0 {ratio} Normal 0.9-2.4 [facility] Comment on above: Performed By: #### L 503.6005, L100.0100, L500.4050 #### [facility] [address] [place], [address] ALK PHOS 50 U/L Normal 35-104 [facility] Comment on above: Performed By: #### L 503.6005, L100.0100, L500.4050 #### [facility] [address] [place], [address] ALT [Catalytic activity/Vol] 14 U/L Normal <=34 [facility] Comment on above: Performed By: #### L 503.6005, L100.0100, L500.4050 #### [facility] [address] [place], [address] AST [Catalytic activity/Vol] 21 U/L Normal <=31 [facility] Comment on above: Performed By: #### L 503.6005, L100.0100, L500.4050 #### [facility] [address] [place], [address] Bilirubin [Mass/Vol] 0.74 mg/dL Normal 0.00-1.30 [facility] Comment on above: Performed By: #### L 503.6005, L100.0100, L500.4050 #### [facility] [address] [place], [address] BUN/CRE 20.4 RATIO High 10-20 [facility] Comment on above: Performed By: #### L 503.6005, L100.0100, L500.4050 #### [facility] [address] [place], [address] Calcium [Mass/Vol] 9.0 mg/dL Normal 7.6-11.0 [facility] Comment on above: Performed By: #### L 503.6005, L100.0100, L500.4050 #### [facility] [address] [place], [address] Chloride [Moles/Vol] 101 mmol/L Normal 98-108 [facility] Comment on above: Performed By: #### L 503.6005, L100.0100, L500.4050 #### [facility] [address] [place], [address] CO2 [Moles/Vol] 26.6 mmol/L Normal 21.0-32.0 [facility] Comment on above: Performed By: #### L 503.6005, L100.0100, L500.4050 #### [facility] [address] [place], [address] Creatinine [Mass/Vol] 0.95 mg/dL Normal 0.70-1.20 [facility] Comment on above: Performed By: #### L 503.6005, L100.0100, L500.4050 #### [facility] [address] [place], [address] ECRCL 42.48 ml/min Low 50-250 [facility] Comment on above: Performed By: #### L 503.6005, L100.0100, L500.4050 #### [facility] [address] [place], [address] GAP 9 Normal 5-15 [facility] Comment on above: Performed By: #### L 503.6005, L100.0100, L500.4050 #### [facility] [facility] [address] [place], [address] GFR/1.73 sq M.predicted among non-blacks MDRD (S/P/Bld) [Vol rate/Area] 59 mL/min/{1.73_m2} Low >60 [facility] Comment on above: Result Comment: mL/m in/1.73m2 CKD-EPI Creatinine Equation (2020) Performed By: #### L 503.6005, L100.0100, L500.4050 #### [facility] [address] [place], [address] Globulin (S) [Mass/Vol] 3.0 g/dL Normal 2.2-4.2 [facility] Comment on above: Performed By: #### L 503.6005, L100.0100, L500.4050 #### [facility] [address] [place], [address] Glucose [Mass/Vol] 136 mg/dL High 70-99 [facility] Comment on above: Performed By: #### L 503.6005, L100.0100, L500.4050 #### [facility] [address] [place], [address] Potassium [Moles/Vol] 3.8 mmol/L Normal 3.3-5.1 [facility] Comment on above: Performed By: #### L 503.6005, L100.0100, L500.4050 #### [facility] [address] [place], [address] Sodium [Moles/Vol] 137 mmol/L Normal 133-145 [facility] Comment on above: Performed By: #### L 503.6005, L100.0100, L500.4050 #### [facility] [address] [place], [address] T PROT 6.2 g/dL Normal 5.9-8.4 [facility] Comment on above: Performed By: #### L 503.6005, L100.0100, L500.4050 #### [facility] [address] [place], [address] Urea nitrogen [Mass/Vol] 19 mg/dL Normal 4-19 [facility] Comment on above: Performed By: #### L 503.6005, L100.0100, L500.4050 #### [facility] [address] [place], [address] Emergency Department Summary on 09-05-[address] [facility] Medical Records Department [address] [place] [address] Emergency Department Summary 09/05/25 MR#: [id number] Acct: [id number] Name: HENRY DEGROOT Rep #: [id number] : 1940 85 From: Nicci Pineda MD [...] She has been able to walk since. [facility] Medical History Atrial fibrillation Seizures History [...] vitamin 05/07/18 U nknown History mg-copper 1 yj-fzxlcr-upfklu capsule apixaban 5 mg tablet 5 mg [...] denosumab 60 mg/mL subcutaneous 60 mg subcut [id number] Osteoporosis 05/02/23 Unknown History syringe (Prolia) levetiracetam [...] (PF) 15 mg/0.1 mL 15 mg intravitreal [id number] Eyes 1 11/21/23 Unknown History intravitreal solution [...] Never smoker (more content not included)... Normal [facility] Knee 1 or 2 Viewson 09-05-20 Knee 1 or 2 Views [facility] Imaging Services [address] [place] [address] Knee 1 or 2 Views MR#: [id number] Acct: [id number] Name: HENRY DEGROOT Rep #: [id number] : 1940 F 85 From: Juan Alberto Hdz MD PCP: Dr. Иван Lopez DO Status: REG ER Study: Knee 1 or 2 Views Date of Exam: 09/05/25 Exam# [id number] Ordering Dr: Nicci Pineda MD EXAM: XR Right Knee, 1 or 2 Views CLINICAL INDICATION: PAIN, FALL, BRUISING TECHNIQUE: Frontal and/or lateral views of the right knee. COMPARISON: No relevant prior studies available. FINDINGS: BONES/JOINTS: Unremarkable. No acute fracture. No dislocation. SOFT TISSUES: Unremarkable. RAD/Knee 1 or 2 Views IMPRESSION: No acute fracture. Reading Location: [facility]HOME CC: Dr. Nicci Pineda MD; Dr. Иван Lopez DO Nuclear Technologist: Signed Normal [facility] L501.4021on 09-05-2025 Trop T High Sen 18 ng/L High <=14 [facility] Comment on above: Performed By: #### M 100.636, M200.1000 #### [facility] [address] [place], [address] Lactic Acidon 09-05-2025 Lactate [Moles/Vol] 1.4 mmol/L Normal 0.0-2.0 [facility] Comment on above: Order Comment: Y Performed By: #### L 503.6005, L100.0100, L500.4050 #### [facility] [address] [place], [address] M100.678on 09-05-2025 M100.678 Pending SARS-CoV-2 (COVID 19) Negative INFLUENZA A Negative INFLUENZA B Negative RSV PCR Negative Normal [facility] Comment on above: Performed By: #### M 100.636, M200.1000 #### [facility] [address] [place], [address] Spine Cervical without Contr ason 09-05-2025 Spine Cervical without Contras [facility] Imaging Services [address] [place] [address] Spine Cervical without Contras MR#: [id number] Acct: [id number] Name: HENRY DEGROOT Wendy Rep #: [id number] : 1940 F 85 From: Ricardo Jessica MD PCP: Dr. Иван Lopez DO Status: REG ER Study: Spine Cervical without Contras Date of Exam: 11/05/24 Exam# [id number] Ordering Dr: Nicci Pineda MD PROCEDURE: SPINE [...] separately dictated on CT chest. [facility]: Dr. Nicci Pineda MD; Dr. Иван Lopez DO Nuclear Technologist: Signed Normal [facility] Troponin T HS 2 HRon 025 Trop T High Sen 17 ng/L High <=14 [facility] Comment on above: Performed By: #### L 499.0042 #### [facility] [address] [place], [address] Troponin T HS 4 HRon 025 Trop T High Sen Normal <=14 [facility] Comment on above: Result Comment: Canc elled via OM: Ordered Performed By: #### M 100.636, M200.1000 #### [facility] [address] [place], [address] Urinalysis, Completeon 09-05 EPI,SQUAMOUS 0-5 SEEN Normal 5-10 [facility] Comment on above: Order Comment: EFE TER SPECIMEN Performed By: #### L 400.0001, M100.678 ####[facility] [address] [place], [address] WBC 5-10 SEEN Normal 0-5 [facility] Comment on above: Order Comment: EFE TER SPECIMEN Performed By: #### L 400.0001, M100.678 ####[facility] [address] [place], [address] BACTERIA 0 SEEN Normal None Seen [facility] Comment on above: Order Comment: EFE TER SPECIMEN Performed By: #### L 400.0001, M100.678 ####[facility] [address] [place], [address] Mucus Ql (Urine sed) 0 SEEN Normal [facility] Comment on above: Order Comment: EFE TER SPECIMEN Performed By: #### L 400.0001, M100.678 ####[facility] [address] [place], [address] RBC 0 SEEN Normal 0-5 [facility] Comment on above: Order Comment: EFE TER SPECIMEN Performed By: #### L 400.0001, M100.678 ####[facility] [address] [place], [address] CDIFPCRon 06-15-2025 Clostridium difficile PCR Positive Abnormal Negative [facility] Comment on above: Performed By: #### C DIFPCR #### [address] [address] #### STGIPCR #### [place] [address] Clostridium difficile PCR Int See Below Normal [facility] Comment on above: Result Comment: Clinical [...] notified. Performed By: #### C DIFPCR #### [address] [address] #### STGIPCR #### [address] [address] LABORATORYOrdered By: Libby Cleary on 06-15-2025 Adenovirus [...] prudencio 1 Absence of Shiga toxin 2 [facility] Comment on above: Testing performed by immunochromatography. Clostridium difficile Toxin Confirmation Toxin A/B Confirmation Assay: Negative C. difficile toxin is either absent or below the detection limit of the test. [facility] Comment on above: The C.DIFF QUIK [...] present. Salmonella: Negative Shigella: Negative Campylobacter: Negative [facility] Comment on above: Requests for alterna tive pathogens including Yersinia, E. coli 0157, C. difficile toxin, Rotavirus, Giardia and parasites require specific requests. Kamryn 06-15-2025 Adenovirus F 40/41 Not detected Normal Not Detected [facility] Comment on above: Performed By: #### C DIFPCR #### [address] [address] #### STGIPCR #### [facility] [address] [place] [address] Astrovirus Not detected Normal Not Detected [facility] Comment on above: Performed By: #### C DIFPCR #### [place] [address] #### STGIPCR #### [facility] [address] [place] [address] Campy (jejuni/coli/ups) Not detected Normal Not Detected [facility] Comment on above: Performed By: #### C DIFPCR #### [address] [address] #### STGIPCR #### [facility] [address] [place] [address] Cryptosporidium Not detected Normal Not Detected [facility] Comment on above: Performed By: #### C DIFPCR #### [address] [address] #### STGIPCR #### [place] [id number] Cyclospora Not detected Normal Not Detected [facility] Comment on above: Performed By: #### C DIFPCR #### [address] [address] #### STGIPCR #### [facility] [address] [place] [address] E. coli (ETEC) Not detected Normal Not Detected [facility] Comment on above: Performed By: #### C DIFPCR #### [address] [address] #### STGIPCR #### [facility] [address] [place] [address] E. coli O157 Not Applicable Normal Not Detected [facility] Comment on above: Performed By: #### C DIFPCR #### [address] [address] #### STGIPCR #### [facility] [address] [place] [address] Entamoeba histolytica Not detected Normal Not Detected [facility] Comment on above: Performed By: #### C DIFPCR #### [address] [address] #### STGIPCR #### [facility] [address] [place] [address] Enteroaggregative E. coli (EAEC) Not detected Normal Not Detected [facility] Comment on above: Performed By: #### C DIFPCR #### [address] [address] #### STGIPCR #### [facility] [address] [place] [address] Enteropathogenic E. coli (EPEC) Detected Abnormal Not Detected [facility] Comment on above: Performed By: #### C DIFPCR #### [address] [address] #### STGIPCR #### [facility] [address] [place] [address] Giardia lamblia Not detected Normal Not Detected [facility] Comment on above: Performed By: #### C DIFPCR #### [address] [address] #### STGIPCR #### [facility] [address] [place] [address] Norovirus GI/GII Not detected Normal Not Detected [facility] Comment on above: Performed By: #### C DIFPCR #### [address] [address] #### STGIPCR #### [facility] [address] [place] [address] Plesiomonas shigelloides Not detected Normal Not Detected [facility] Comment on above: Performed By: #### C DIFPCR #### [address] [address] #### STGIPCR #### [facility] [address] [place] [address] Rotavirus A Not detected Normal Not Detected [facility] Comment on above: Performed By: #### C DIFPCR #### [place] [address] #### STGIPCR #### [facility] [address] [place] [address] Salmonella species, stool Not detected Normal Not Detected [facility] Comment on above: Performed By: #### C DIFPCR #### [place] [address] #### STGIPCR #### [place] [address] Sapovirus I,II,IV,V Not detected Normal Not Detected [facility] Comment on above: Performed By: #### C DIFPCR #### [place] [address] #### STGIPCR #### [facility] [address] [place] [address] Shig Tox E. coli (STEC) Not detected Normal Not Detected [facility] Comment on above: Performed By: #### C DIFPCR #### [address] [address] #### STGIPCR #### [facility] [address] [place], [place] [address] Shigella/Enteroinvasive E. coli (EIEC) Not detected Normal Not Detected [facility] Comment on above: Performed By: #### C DIFPCR #### [place] [address] #### STGIPCR #### [facility] [address] [place] [address] Stool GI Comment See Comment Normal [facility] Comment on above: Result Comment: Viru [...] primers. Performed By: #### C DIFPCR #### [place] [address] #### STGIPCR #### [place] [address] Vibrio cholerae Not detected Normal Not Detected [facility] Comment on above: Performed By: #### C DIFPCR #### [place] [address] #### STGIPCR #### [place] [address] Vibrio par/vul/chol Not detected Normal Not Detected [facility] Comment on above: Performed By: #### C DIFPCR #### [place] [address] #### STGIPCR #### [place] [address] Yersinia enterocolitica Not detected Normal Not Detected [facility] Comment on above: Performed By: #### C DIFPCR #### [place] [address] #### STGIPCR #### [place] [address] IMIPENEM:SUSC:PT:ISOLATE:ORD QN:MICon 06-14-2025 Imipenem BENEDICT [Susc] >100,000 cfu/ml Escherichia coli [facility] Imipenem BENEDICT [Susc]on 2024 Escherichia coli Escherichia coli [facility] LABORATORYOrdered By: Joann Lares on 02-26-2025 Albumin DL <= 20 mg/L (U) [Mass/Vol] 3.3 mg/L Invalid Interpretation Code AO ADM SS Albumin/Creatinine DL <= 20 mg/L (U) [Mass ratio] 3 mg/G Normal 0 - 30 mg/G AO Chemistry S Creatinine (U) [Mass/Vol] 101.6 mg/dL Normal 29.0 - 226.0 mg/dL AO ADM SS MALBRon 02-26-2025 U Creatinine 101.6 mg/dL Normal 29.0-226.0 [facility] Comment on above: Performed By: #### M ALBR #### [address] [address] U Microalb 3.3 mg/L Normal [facility] Comment on above: Performed By: #### M ALBR #### [address] [address] U Ratio Alb/Cre 3 mg/G Normal 0-30 [facility] Comment on above: Performed By: #### M ALBR #### [address] [address] .Auto Diffon 02-19-2025 Basophil, Absolute 0.0 10 3/mcL Normal 0.0-0.3 [facility] Comment on above: Performed By: #### C DIFPCR #### [address] [address] #### STGIPCR #### [address] [address] Basophils/100 WBC (Bld) 0.6 % Normal 0.0-2.5 [facility] Comment on above: Performed By: #### C DIFPCR #### [place] [address] #### STGIPCR #### [address] [address] Eosinophil, Absolute 0.2 10 3/mcL Normal 0.0-0.7 [facility] Comment on above: Performed By: #### C DIFPCR #### [place] [address] #### STGIPCR #### [address] [address] Eosinophils/100 WBC (Bld) 2.4 % Normal 0.0-6.0 [facility] Comment on above: Performed By: #### C DIFPCR #### [address] [address] #### STGIPCR #### [address] [address] Lymphocyte, Absolute 1.5 10 3/mcL Normal 0.9-4.3 [facility] Comment on above: Performed By: #### C DIFPCR #### [place] [address] #### STGIPCR #### [address] [address] Lymphocytes/100 WBC (Bld) 22.0 % Normal 20.0-40.0 [facility] Comment on above: Performed By: #### C DIFPCR #### [place] [address] #### STGIPCR #### [address] [address] Monocyte, Absolute 0.7 10 3/mcL Normal 0.1-1.4 [facility] Comment on above: Performed By: #### C DIFPCR #### [place] [id number] #### STGIPCR #### [address] [address] Monocytes/100 WBC (Bld) 10.3 % Normal 2.0-13.0 [facility] Comment on above: Performed By: #### C DIFPCR #### [place] [address] #### STGIPCR #### [address] [address] Neutrophils/100 WBC (Bld) 64.7 % Normal 50.0-75.0 [facility] Comment on above: Performed By: #### C DIFPCR #### [place] [id number] #### STGIPCR #### [address] [address] .GFRon 02-19-2025 Estimated Glomerular Filtration Rate 65 ml/min/1.73sqm Normal [facility] Comment on above: Result Comment: Stages [...] By: #### C DIFPCR #### [place] [id number] #### STGIPCR #### [place] [address] .NEUABSon 02-19-2025 Neutrophil, Absolute 4.4 10 3/mcL Normal 2.3-8.1 [facility] Comment on above: Performed By: #### C DIFPCR #### [place] [id number] #### STGIPCR #### [place] [address] CBCon 02-19-2025 Erythrocyte distribution width (RBC) [Ratio] 13.7 % Normal 11.5-15.5 [facility] Comment on above: Performed By: #### C BC, ANEU, VIDH, GFR, LIPID, CMP, TSH, ADIFF #### [address] [address] Hematocrit (Bld) [Volume fraction] 41.4 % Normal 34.0-46.0 [facility] Comment on above: Performed By: #### C BC, ANEU, VIDH, GFR, LIPID, CMP, TSH, ADIFF #### [address] [address] Hgb 14.0 G/dL Normal 12.0-16.0 [facility] Comment on above: Performed By: #### C BC, ANEU, VIDH, GFR, LIPID, CMP, TSH, ADIFF #### [address] [address] MCH (RBC) [Entitic mass] 32.3 pg Normal 27.0-33.0 [facility] Comment on above: Performed By: #### C BC, ANEU, VIDH, GFR, LIPID, CMP, TSH, ADIFF #### [address] [address] MCHC 33.7 G/dL Normal 32.0-36.0 [facility] Comment on above: Performed By: #### C BC, ANEU, VIDH, GFR, LIPID, CMP, TSH, ADIFF #### [address] [address] MCV (RBC) [Entitic vol] 95.7 fL Normal 80.0-99.0 [facility] Comment on above: Performed By: #### C BC, ANEU, VIDH, GFR, LIPID, CMP, TSH, ADIFF #### [address] [address] Platelet 244 10 3/mcL Normal 150-450 [facility] Comment on above: Performed By: #### C BC, ANEU, VIDH, GFR, LIPID, CMP, TSH, ADIFF #### [address] [address] Platelet mean volume (Bld) [Entitic vol] 10.0 fL Normal 6.6-10.5 [facility] Comment on above: Performed By: #### C BC, ANEU, VIDH, GFR, LIPID, CMP, TSH, ADIFF #### [address] [address] RBC 4.32 10 6/mcL Normal 4.10-5.30 [facility] Comment on above: Performed By: #### C BC, ANEU, VIDH, GFR, LIPID, CMP, TSH, ADIFF #### [address] [address] WBC 6.8 10 3/mcL Normal 4.5-10.8 [facility] Comment on above: Performed By: #### C BC, ANEU, VIDH, GFR, LIPID, CMP, TSH, ADIFF #### [address] [address] CMPon 02-19-2025 Albumin Level 2.9 G/dL Low 3.4-4.8 [facility] Comment on above: Performed By: #### C DIFPCR #### [place] [address] #### STGIPCR #### [address] [address] Albumin/Globulin [Mass ratio] 0.7 {ratio} Low 1.1-2.5 [facility] Comment on above: Performed By: #### C DIFPCR #### [place] [address] #### STGIPCR #### [place] [address] ALP [Catalytic activity/Vol] 63 U/L Normal 40-135 [facility] Comment on above: Performed By: #### C DIFPCR #### [place] [address] #### STGIPCR #### [address] [address] ALT [Catalytic activity/Vol] 14 U/L Normal 14-59 [facility] Comment on above: Performed By: #### C DIFPCR #### [place] [address] #### STGIPCR #### [address] [address] AST [Catalytic activity/Vol] 24 U/L Normal 10-40 [facility] Comment on above: Performed By: #### C DIFPCR #### [place] [address] #### STGIPCR #### [place] [id number] Bili Total 0.6 mg/dL Normal 0.2-1.0 [facility] Comment on above: Result Comment: Use of this assay is not recommended for patients undergoing treatment with eltrombopag due to the potential for falsely elevated results. Performed By: #### C DIFPCR #### [place] [address] #### STGIPCR #### [address] [address] BUN/Creatinine Ratio 25 ratio Normal 7-27 [facility] Comment on above: Performed By: #### C DIFPCR #### [place] [address] #### STGIPCR #### [address] [address] Calcium [Mass/Vol] 9.6 mg/dL Normal 8.4-10.2 [facility] Comment on above: Performed By: #### C DIFPCR #### [place] [address] #### STGIPCR #### [address] [address] Chloride [Moles/Vol] 104 mmol/L Normal 98-107 [facility] Comment on above: Performed By: #### C DIFPCR #### [place] [address] #### STGIPCR #### [address] [address] CO2 [Moles/Vol] 31 mmol/L Normal 23-31 [facility] Comment on above: Performed By: #### C DIFPCR #### [place] [address] #### STGIPCR #### [address] [address] Creatinine [Mass/Vol] 0.88 mg/dL Normal 0.55-1.02 [facility] Comment on above: Result Comment: Test ing performed on Siemens Dimension EXL analyzer using a modified kinetic Cecilio technique. Performed By: #### C DIFPCR #### [address] [address] #### STGIPCR #### [address] [address] Electrolyte Balance 3.0 mEq/L Low 4.0-15.0 [facility] Comment on above: Performed By: #### C DIFPCR #### [address] [address] #### STGIPCR #### [address] [address] Globulin 4.0 G/dL High 1.5-3.8 [facility] Comment on above: Performed By: #### C DIFPCR #### [place] [address] #### STGIPCR #### [address] [address] Glucose [Mass/Vol] 87 mg/dL Normal 83-110 [facility] Comment on above: Performed By: #### C DIFPCR #### [place] [address] #### STGIPCR #### [address] [address] Potassium [Moles/Vol] 4.3 mmol/L Normal 3.5-5.1 [facility] Comment on above: Performed By: #### C DIFPCR #### [address] [address] #### STGIPCR #### [address] [address] Sodium [Moles/Vol] 138 mmol/L Normal 136-145 [facility] Comment on above: Performed By: #### C DIFPCR #### [address] [address] #### STGIPCR #### [address] [address] Total Protein 6.9 G/dL Normal 6.4-8.2 [facility] Comment on above: Performed By: #### C DIFPCR #### [address] [address] #### STGIPCR #### [facility] [address] [place] [address] Urea nitrogen [Mass/Vol] 22 mg/dL High -18 [facility] Comment on above: Performed By: #### C DIFPCR #### [address] [address] #### STGIPCR #### [address] [address] LIPIDon 02-19-2025 Cholesterol [Mass/Vol] 170 mg/dL Normal 0-200 [facility] Comment on above: Result Comment: Chol esterol Reference Interval: Less than 200 Desirable 200-239 Borderline high risk 240 and above High risk Performed By: #### C DIFPCR #### [address] [address] #### STGIPCR #### [address] [address] Cholesterol in HDL [Mass/Vol] 72 mg/dL High 40-60 [facility] Comment on above: Performed By: #### C DIFPCR #### [address] [address] #### STGIPCR #### [address] [address] Cholesterol in LDL [Mass/Vol] 86 mg/dL Normal 0-130 [facility] Comment on above: Performed By: #### C DIFPCR #### [address] [address] #### STGIPCR #### [address] [address] Triglyceride [Mass/Vol] 61 mg/dL Normal 0-150 [facility] Comment on above: Result Comment: Trig lyceride Reference Interval: Less than 150 Normal 150-199 Borderline high risk 200-499 High risk 500 or higher Very high risk Performed By: #### C DIFPCR #### [place] [address] #### STGIPCR #### [address] [address] TSHon 02-19-2025 TSH Qn 1.63 m[IU]/L Normal 0.36-3.74 [facility] Comment on above: Performed By: #### C DIFPCR #### [address] [address] #### STGIPCR #### [address] [address] VIDHon 02-19-2025 Vit. D 25-Hydroxy 32.2 ng/mL Normal [facility] Comment on above: Result Comment: Inte rpretive Values Based on Total 25(OH) Vitamin D: Deficient <20 ng/mL Insufficient 20 - <30 ng/mL Sufficient 30-100 ng/mL Performed By: #### C DIFPCR #### [address] [address] #### STGIPCR #### [place] [id number] Cardiology Visit Reporton Cardiology Visit Report [facility] 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 Normal [facility] Urine Cultureon 11-20-2024 URC Escherichia coli [place] Count 80,000-100,000 Escherichia coli: REACTION Ampicillin Islt [...] TMP SMX Islt BENEDICT <=20 S Normal [facility] Comment on above: Performed By: #### M 100.636, M200.1000 #### [facility] [address] [place], [place], [id number] (202 Urinalysis, Routine (Dipstic k)on 11-18-2024 Clarity (U) Cloudy Normal Clear [facility] Comment on above: Order Comment: PT TO [place] URINARY TRACT HE[facility] AND MAX STRENGTH B4 PEEING (4)Urine, Random Performed By: #### M 100.636, M200.1000 #### [facility] [address] [place], [address] BILIRUBIN URINE 3 mg/dL Abnormal Negative [facility] Comment on above: Order Comment: PT TO [place] URINARY TRACT HEALTH [place] AND MAX STRENGTH B4 PEEING (4)Urine, Random Result Comment: COLO R OF URINE MAY AFFECT DIPSTICK RESULTS. Performed By: #### M 100.636, M200.1000 #### [facility] [address] [place], [address] Color (U) Red Normal Yellow [facility] Comment on above: Order Comment: PT TO [place] URINARY TRACT HEALTH [place] AND MAX STRENGTH B4 PEEING (4)Urine, Random Performed By: #### M 100.636, M200.1000 #### [facility] [address] [place], [address] GLUCOSE, UR Normal Normal Normal [facility] Comment on above: Order Comment: PT TO [place] URINARY TRACT HE[facility] [place] AND MAX STRENGTH B4 PEEING (4)Urine, Random Performed By: #### M 100.636, M200.1000 #### [facility] [address] [place], [address] KETONE UR Negative Normal Negative [facility] Comment on above: Order Comment: PT TO [place] URINARY TRACT HE[facility] [place] AND MAX STRENGTH B4 PEEING (4)Urine, Random Performed By: #### M 100.636, M200.1000 #### [facility] [address] [place], [address] LEUK ESTERASE Negative Normal Negative [facility] Comment on above: Order Comment: PT TO [place] URINARY TRACT HE[facility] [place] AND MAX STRENGTH B4 PEEING (4)Urine, Random Performed By: #### M 100.636, M200.1000 #### [facility] [address] [place], [address] Nitrite Ql (U) Negative Normal Negative [facility] Comment on above: Order Comment: PT TO [place] URINARY TRACT HE[facility] [place] AND MAX STRENGTH B4 PEEING (4)Urine, Random Performed By: #### M 100.636, M200.1000 #### [facility] [address] [place], [address] OCCULT BLOOD-UR 10 /ul Abnormal Negative [facility] Comment on above: Order Comment: PT TO [place] URINARY TRACT [facility] [place] AND MAX STRENGTH B4 PEEING (4)Urine, Random Performed By: #### M 100.636, M200.1000 #### [facility] [address] [place], [address] pH UR 5.0 Normal 5.0 - 8.0 [facility] Comment on above: Order Comment: PT TO [place] URINARY TRACT HE[facility] [place] AND MAX STRENGTH B4 PEEING (4)Urine, Random Performed By: #### M 100.636, M200.1000 #### [facility] [address] [place], [address] PROT DIPSTX 30 mg/dl Abnormal Negative [facility] Comment on above: Order Comment: PT TO [place] URINARY TRACT [facility] [place] AND MAX STRENGTH B4 PEEING (4)Urine, Random Performed By: #### M 100.636, M200.1000 #### [facility] [address] [place], [address] SP.GR. DIPSTX 1.025 Normal 1.002-1.03 0 [facility] Comment on above: Order Comment: PT TO [place] URINARY TRACT [facility] [place] AND MAX STRENGTH B4 PEEING (4)Urine, Random Performed By: #### M 100.636, M200.1000 #### [facility] [address] [place], [place], [address] UROBILI Normal Normal Normal [facility] Comment on above: Order Comment: PT TO [place] URINARY TRACT [facility] AND MAX STRENGTH B4 PEEING (4)Urine, Random Performed By: #### M 100.636, M200.1000 #### [facility] [address] [place], [address] No Panel Informationon 10-07 Culture Urine No growth at 48 hours. [facility] .Auto Diffon 10-06-2024 Basophil, Absolute 0.0 10 3/mcL Normal 0.0-0.2 [facility] Comment on above: Performed By: #### C BC, PBNP, ADIFF, GFR, ANEU, CMP #### [address] [address] Basophils/100 WBC (Bld) 0.4 % Normal 0.0-2.5 [facility] Comment on above: Performed By: #### C BC, PBNP, ADIFF, GFR, ANEU, CMP #### [address] [address] Eosinophil, Absolute 0.1 10 3/mcL Normal 0.0-0.7 [facility] Comment on above: Performed By: #### C BC, PBNP, ADIFF, GFR, ANEU, CMP #### [address] [address] Eosinophils/100 WBC (Bld) 1.3 % Normal 0.0-7.0 [facility] Comment on above: Performed By: #### C BC, PBNP, ADIFF, GFR, ANEU, CMP #### [address] [address] Lymphocyte, Absolute 1.9 10 3/mcL Normal 0.9-4.3 [facility] Comment on above: Performed By: #### C BC, PBNP, ADIFF, GFR, ANEU, CMP #### [address] [address] Lymphocytes/100 WBC (Bld) 20.0 % Normal 20.0-40.0 [facility] Comment on above: Performed By: #### C BC, PBNP, ADIFF, GFR, ANEU, CMP #### [address] [address] Monocyte, Absolute 0.7 10 3/mcL Normal 0.1-1.4 [facility] Comment on above: Performed By: #### C BC, PBNP, ADIFF, GFR, ANEU, CMP #### [address] [address] Monocytes/100 WBC (Bld) 8.0 % Normal 2.0-13.0 [facility] Comment on above: Performed By: #### C BC, PBNP, ADIFF, GFR, ANEU, CMP #### [address] [address] Neutrophils/100 WBC (Bld) 70.3 % Normal 50.0-75.0 [facility] Comment on above: Performed By: #### C BC, PBNP, ADIFF, GFR, ANEU, CMP #### [address] [address] .GFRon 10-06-2024 GFR 74 ml/min/1.73sqm Normal [facility] Comment on above: Result Comment: GFR [...] BC, PBNP, ADIFF, GFR, ANEU, CMP #### [address] [address] GFR Non- 61 ml/min/1.73sqm Normal [facility] Comment on above: Result Comment: GFR [...] BC, PBNP, ADIFF, GFR, ANEU, CMP #### [address] [address] .NEUABSon 10-06-2024 Neutrophil, Absolute 6.6 10 3/mcL Normal 2.3-8.1 [facility] Comment on above: Performed By: #### C BC, PBNP, ADIFF, GFR, ANEU, CMP #### [address] [address] CBCon 10-06-2024 Erythrocyte distribution width (RBC) [Ratio] 13.3 % Normal 11.5-15.5 [facility] Comment on above: Performed By: #### C BC, PBNP, ADIFF, GFR, ANEU, CMP #### [place] [address] Hematocrit (Bld) [Volume fraction] 42.0 % Normal 34.0-46.0 [facility] Comment on above: Performed By: #### C BC, PBNP, ADIFF, GFR, ANEU, CMP #### [place] [address] Hgb 13.9 G/dL Normal 12.0-16.0 [facility] Comment on above: Performed By: #### C BC, PBNP, ADIFF, GFR, ANEU, CMP #### [address] [address] MCH (RBC) [Entitic mass] 32.1 pg Normal 27.0-33.0 [facility] Comment on above: Performed By: #### C BC, PBNP, ADIFF, GFR, ANEU, CMP #### [address] [address] MCHC 33.2 G/dL Normal 32.0-36.0 [facility] Comment on above: Performed By: #### C BC, PBNP, ADIFF, GFR, ANEU, CMP #### [address] [address] MCV (RBC) [Entitic vol] 96.7 fL Normal 80.0-99.0 [facility] Comment on above: Performed By: #### C BC, PBNP, ADIFF, GFR, ANEU, CMP #### [address] [address] Platelet 311 10 3/mcL Normal 150-450 [facility] Comment on above: Performed By: #### C BC, PBNP, ADIFF, GFR, ANEU, CMP #### [address] [address] Platelet mean volume (Bld) [Entitic vol] 9.4 fL Normal 6.6-10.5 [facility] Comment on above: Performed By: #### C BC, PBNP, ADIFF, GFR, ANEU, CMP #### [place] [address] RBC 4.35 10 6/mcL Normal 4.10-5.30 [facility] Comment on above: Performed By: #### C BC, PBNP, ADIFF, GFR, ANEU, CMP #### [place] [address] WBC 9.3 10 3/mcL Normal 4.5-10.8 [facility] Comment on above: Performed By: #### C BC, PBNP, ADIFF, GFR, ANEU, CMP #### [place] [address] CMPon 10-06-2024 Albumin Level 2.9 G/dL Low 3.4-4.8 [facility] Comment on above: Performed By: #### C BC, PBNP, ADIFF, GFR, ANEU, CMP #### [place] [id number] Albumin/Globulin [Mass ratio] 0.8 {ratio} Low 1.1-2.5 [facility] Comment on above: Performed By: #### C BC, PBNP, ADIFF, GFR, ANEU, CMP #### [place] [address] ALP [Catalytic activity/Vol] 76 U/L Normal 40-135 [facility] Comment on above: Performed By: #### C BC, PBNP, ADIFF, GFR, ANEU, CMP #### [place] [address] ALT [Catalytic activity/Vol] 19 U/L Normal 14-59 [facility] Comment on above: Performed By: #### C BC, PBNP, ADIFF, GFR, ANEU, CMP #### [address] [address] AST [Catalytic activity/Vol] 16 U/L Normal 10-40 [facility] Comment on above: Performed By: #### C BC, PBNP, ADIFF, GFR, ANEU, CMP #### [address] [address] Bili Total 0.5 mg/dL Normal 0.2-1.0 [facility] Comment on above: Result Comment: Use of this assay is not recommended for patients undergoing treatment with eltrombopag due to the potential for falsely elevated results. Performed By: #### C BC, PBNP, ADIFF, GFR, ANEU, CMP #### [address] [address] BUN/Creatinine Ratio 25 ratio Normal 7-27 [facility] Comment on above: Performed By: #### C BC, PBNP, ADIFF, GFR, ANEU, CMP #### [address] [address] Calcium [Mass/Vol] 9.7 mg/dL Normal 8.4-10.2 [facility] Comment on above: Performed By: #### C BC, PBNP, ADIFF, GFR, ANEU, CMP #### [address] [address] Chloride [Moles/Vol] 100 mmol/L Normal 98-107 [facility] Comment on above: Performed By: #### C BC, PBNP, ADIFF, GFR, ANEU, CMP #### [address] [address] CO2 [Moles/Vol] 32 mmol/L High 23-31 [facility] Comment on above: Performed By: #### C BC, PBNP, ADIFF, GFR, ANEU, CMP #### [address] [address] Creatinine [Mass/Vol] 0.88 mg/dL Normal 0.55-1.02 [facility] Comment on above: Result Comment: Test ing performed on [employer] Dimension EXL analyzer using a modified kinetic Cecilio technique. Performed By: #### C BC, PBNP, ADIFF, GFR, ANEU, CMP #### [address] [address] Electrolyte Balance 5.0 mEq/L Normal 4.0-15.0 [facility] Comment on above: Performed By: #### C BC, PBNP, ADIFF, GFR, ANEU, CMP #### [address] [address] Globulin 3.8 G/dL Normal [facility] Comment on above: Performed By: #### C BC, PBNP, ADIFF, GFR, ANEU, CMP #### [address] [address] Glucose [Mass/Vol] 88 mg/dL Normal 83-110 [facility] Comment on above: Performed By: #### C BC, PBNP, ADIFF, GFR, ANEU, CMP #### [address] [address] Potassium [Moles/Vol] 4.7 mmol/L Normal 3.5-5.1 [facility] Comment on above: Performed By: #### C BC, PBNP, ADIFF, GFR, ANEU, CMP #### [address] [address] Sodium [Moles/Vol] 137 mmol/L Normal 136-145 [facility] Comment on above: Performed By: #### C BC, PBNP, ADIFF, GFR, ANEU, CMP #### [address] [address] Total Protein 6.7 G/dL Normal 6.4-8.2 [facility] Comment on above: Performed By: #### C BC, PBNP, ADIFF, GFR, ANEU, CMP #### [address] [address] Urea nitrogen [Mass/Vol] 22 mg/dL High 7-18 [facility] Comment on above: Performed By: #### C BC, PBNP, ADIFF, GFR, ANEU, CMP #### [place] [address] [place], [place] [address] LABORATORYOrdered By: SYSTEM SYSTEM on 10-06-2024 Albumin [...] B (Bld) [Mass/Vol] 2431 pg/mL High 0-450 [facility] Comment on above: Result Comment: NT-p roBNP results of less than 300 pg/mL effectively rules out acute congestive heart failure with 99% negative predictive value. Performed By: #### C BC, PBNP, ADIFF, GFR, ANEU, CMP #### [facility] [address] [place], [place] [address] BASIC METABOLIC PANELon 11-2 Anion gap [Moles/Vol] 5 mmol/L Normal 3-13 [facility] Comment on above: Performed By: #### L [id number], [id number] #### [employer] Operator: ESEQUIEL IRENE ([id number]) [facility]) [address] [place] [address] Calcium [Mass/Vol] 8.4 mg/dL Normal 8.4-10.4 [facility] Comment on above: Performed By: #### L [id number], [id number] #### [employer] Operator: ESEQUIEL IRENE ([id number]) [facility] ([facility]) [address] [place] [address] [place] Chloride [Moles/Vol] 104 mmol/L Normal 98-107 [facility] Comment on above: Performed By: #### L [id number], [id number] #### [employer] Operator: ESEQUIEL IRENE ([id number]) [facility]) [address] [place] [address] [place] CO2 [Moles/Vol] 28 mmol/L Normal 22-30 [facility] Comment on above: Performed By: #### L [id number], [id number] #### [employer] Operator: ESEQUIEL IRENE ([id number]) [facility]) [address] [place] [address] [place] Creatinine [Mass/Vol] 0.73 mg/dL Normal 0.52-1.04 [facility] Comment on above: Performed By: #### L [id number], [id number] #### [employer] Operator: ESEQUIEL IRENE ([id number]) [facility]) [address] [place] [address] GLOMERULAR FILTRATION RATE ML/MIN/1.73 SQ M.PREDICTED 81.2 mL/min/1.73m*2 Normal >60.0 [facility] Comment on above: Result Comment: Calc ulation based on the Chronic Kidney Disease Epidemiology Collaboration (CKD-EPI) equation refit without adjustment for race Performed By: #### L [id number], [id number] #### [employer] Operator: ESEQUIEL IRENE ([id number]) [facility] ([facility]) [address] [place] [address] Glucose [Mass/Vol] 113 mg/dL High 70-100 [facility] Comment on above: Performed By: #### L [id number], [id number] #### [employer] Operator: ESEQUIEL IRENE ([id number]) [facility]) [address] [place] [address] Potassium [Moles/Vol] 4.3 mmol/L Normal 3.5-5.1 [facility] Comment on above: Performed By: #### L [id number], [id number] #### [employer] Operator: ESEQUIEL IRENE ([id number]) [facility]) [address] [place] [address] Sodium [Moles/Vol] 136 mmol/L Normal 135-145 [facility] Comment on above: Performed By: #### L [id number], LAB15 #### [employer] Operator: ESEQUIEL IRENE ([id number]) [facility]) [address] [place] [address] Urea nitrogen [Mass/Vol] 16 mg/dL Normal 7-17 [facility] Comment on above: Performed By: #### L [id number], LAB15 #### [employer] Operator: ESEQUIEL IRENE ([id number]) [facility]) [address] [place] [address] Basic metabolic 1998 panelon 09-30-2024 Anion gap [Moles/Vol] 5 mmol/L 3 - 13 mmol/L [facility] Calcium [Mass/Vol] 8.4 mg/dL 8.4 - 10. 4 mg/dL [facility] Chloride [Moles/Vol] 104 mmol/L 98 - 10 7 mmol/L [facility] CO2 [Moles/Vol] 28 mmol/L 22 - 30 mmol/L [facility] Creatinine [Mass/Vol] 0.73 mg/dL 0.52 - 1.04 mg/dL [facility] GFR/1.73 sq M.predicted (S/P/Bld) [Vol rate/Area] 81.2 mL/min - PINF [facility] Comment on above: Calculation based on the Chronic Kidney Disease Epidemiology Collaboration (CKD-EPI) equation refit without adjustment for race Glucose [Mass/Vol] 113 mg/dL High 70 - 100 mg/dL [facility] Interpretation and review of laboratory results Abnormal [facility] Potassium [Moles/Vol] 4.3 mmol/L 3.5 - 5.1 mmol/L [facility] Sodium [Moles/Vol] 136 mmol/L 135 - 145 mmol/L [facility] Urea nitrogen [Mass/Vol] 16 mg/dL 7 - 17 mg/dL [facility] CBC W Auto Differential pane l (Bld)on 09-30-2024 Basophils (Bld) [#/Vol] 0 10*3/uL 0.0 - 0.2 10*3/uL [facility] Basophils/100 WBC (Bld) 0.3 % 0.0 - 2.0 % [facility] Eosinophils (Bld) [#/Vol] 0.1 10*3/uL 0.0 - 0.5 10*3/uL [facility] Eosinophils/100 WBC (Bld) 0.6 % 0.0 - 6.0 % [facility] Erythrocyte distribution width (RBC) [Ratio] 12.6 % 11.5 - 15.0 % [facility] Hematocrit (Bld) [Volume fraction] 41.3 % 35.0 - 47.0 % [facility] Hemoglobin (Bld) [Mass/Vol] 13.2 g/dL 11.7 - 16.0 g/dL [facility] Immature granulocytes (Bld) [#/Vol] 0 10*3/uL NINF - 0.1 10*3/uL [facility] Immature granulocytes/100 WBC (Bld) 0.4 % 0.0 - 2.0 % [facility] Interpretation and review of laboratory results Abnormal [facility] [place] Lymphocytes (Bld) [#/Vol] 1.1 10*3/uL 1.0 - 4.3 10*3/uL [facility] Lymphocytes/100 WBC (Bld) 10.8 % Low 15.0 - 45.0 % [facility] MCH (RBC) [Entitic mass] 31.5 pg 26.0 - 34.0 pg [facility] MCHC (RBC) [Mass/Vol] 32 % 30.5 - 36.0 % [facility] MCV (RBC) [Entitic vol] 98.6 fL 77.0 - 99.0 fL [facility] Monocytes (Bld) [#/Vol] 0.9 10*3/uL 0.0 - 0.9 10*3/uL [facility] Monocytes/100 WBC (Bld) 9.2 % 5.0 - 13.0 % [facility] Neutrophils (Bld) [#/Vol] 8 10*3/uL High 1.8 - 7.5 10*3/uL [facility] Neutrophils/100 WBC (Bld) 78.7 % 38.0 - 82.0 % [facility] Nucleated RBC/100 WBC (Bld) [Ratio] 0 % [facility] [place] Platelet mean volume (Bld) [Entitic vol] 11.3 fL 9.0 - 12.7 fL [facility] Platelets (Bld) [#/Vol] 239 10*3/uL 140 - 440 10*3/uL [facility] RBC (Bld) [#/Vol] 4.19 10*6/uL 3.80 - 5.20 10*6/uL [facility] WBC (Bld) [#/Vol] 10.2 10*3/uL 3.6 - 10.7 10*3/uL [facility] CBC WITH AUTO DIFFERENTIALon 09-30-2024 Basophils (Bld) [#/Vol] 0.0 10*3/uL Normal 0.0-0.2 [facility] Comment on above: Performed By: #### L [id number] #### [employer] Operator: ESEQUIEL IRENE ([id number]) [facility]) [address] [place] [address] Basophils/100 WBC (Bld) 0.3 % Normal 0.0-2.0 [facility] Comment on above: Performed By: #### L [id number] #### [employer] Operator: ESEQUIEL IRENE ([id number]) [facility]) [address] [place] [address] Eosinophils (Bld) [#/Vol] 0.1 10*3/uL Normal 0.0-0.5 [facility] Comment on above: Performed By: #### L [id number] #### [employer] Operator: ESEQUIEL IRENE ([id number]) [facility]) [address] [place] [address] Eosinophils/100 WBC (Bld) 0.6 % Normal 0.0-6.0 [facility] Comment on above: Performed By: #### L [id number] #### [employer] Operator: ESEQUIEL IRENE ([id number]) [facility]) [address] [place] [address] Erythrocyte distribution width (RBC) [Ratio] 12.6 % Normal 11.5-15.0 [facility] Comment on above: Performed By: #### L [id number] #### [employer] Operator: ESEQUIEL IRENE ([id number]) [facility]) [address] [place] [address] Hematocrit (Bld) [Volume fraction] 41.3 % Normal 35.0-47.0 [facility] Comment on above: Performed By: #### L [id number] #### [employer] Operator: ESEQUIEL IRENE ([id number]) [facility]) [address] [place] [address] Hemoglobin (Bld) [Mass/Vol] 13.2 g/dL Normal 11.7-16.0 [facility] Comment on above: Performed By: #### L [id number] #### [employer] Operator: ESEQUIEL IRENE ([id number]) [facility]) [address] [place] [address] IMMATURE GRANS % 0.4 % Normal 0.0-2.0 [facility] Comment on above: Performed By: #### L [id number] #### [employer] Operator: ESEQUIEL IRENE ([id number]) [facility]) [address] [place] [address] IMMATURE GRANS ABSOLUTE 0.0 10*3/uL Normal <0.1 [facility] Comment on above: Performed By: #### L [id number] #### [employer] Operator: ESEQUIEL IRENE ([id number]) [facility]) [address] [place] [address] Lymphocytes (Bld) [#/Vol] 1.1 10*3/uL Normal 1.0-4.3 [facility] Comment on above: Performed By: #### L [id number] #### [employer] Operator: ESEQUIEL IRENE ([id number]) [address] Lymphocytes/100 WBC (Bld) 10.8 % Low 15.0-45.0 [facility] Comment on above: Performed By: #### L [id number] #### [employer] Operator: ESEQUIEL IRENE ([id number]) [facility]) [address] [place] [address] MCH (RBC) [Entitic mass] 31.5 pg Normal 26.0-34.0 [facility] Comment on above: Performed By: #### L [id number] #### [employer] Operator: ESEQUIEL IRENE ([id number]) [address] MCHC 32.0 % Normal 30.5-36.0 [facility] Comment on above: Performed By: #### L [id number] #### [employer] Operator: ESEQUIEL IRENE ([id number]) [address] MCV (RBC) [Entitic vol] 98.6 fL Normal 77.0-99.0 [facility] Comment on above: Performed By: #### L [id number] #### [employer] Operator: ESEQUIEL IRENE ([id number]) [facility] ([facility]) [address] [place] [address] Monocytes (Bld) [#/Vol] 0.9 10*3/uL Normal 0.0-0.9 [facility] Comment on above: Performed By: #### L [id number] #### [employer] Operator: ESEQUIEL IRENE ([id number]) [facility] [address] [place] [address] Monocytes/100 WBC (Bld) 9.2 % Normal 5.0-13.0 [facility] Comment on above: Performed By: #### L [id number] #### [employer] Operator: ESEQUIEL IRENE ([id number]) [facility] [address] [place] [address] NEUTROPHILS ABSOLUTE 8.0 10*3/uL High 1.8-7.5 [facility] Comment on above: Performed By: #### L [id number] #### [employer] Operator: ESEQUIEL IRENE ([id number]) [facility] [address] [place] [address] Neutrophils/100 WBC (Bld) 78.7 % Normal 38.0-82.0 [facility] Comment on above: Performed By: #### L [id number] #### [employer] Operator: ESEQUIEL IRENE ([id number]) [facility] ([facility]) [address] [place] [address] NRBC 0.0 /100 WBCs Normal 0.0-2.0 [facility] Comment on above: Performed By: #### L [id number] #### [employer] Operator: ESEQUIEL IRENE ([id number]) [facility] [address] [place] [address] Platelet mean volume (Bld) [Entitic vol] 11.3 fL Normal 9.0-12.7 [facility] Comment on above: Performed By: #### L [id number] #### [employer] Operator: ESEQUIEL IRENE ([id number]) [facility] [address] [place] [address] [place] Platelets (Bld) [#/Vol] 239 10*3/uL Normal 140-440 [facility] Comment on above: Performed By: #### L [id number] #### [employer] Operator: ESEQUIEL IRENE ([id number]) [facility] [address] [place] [address] RBC (Bld) [#/Vol] 4.19 10*6/uL Normal 3.80-5.20 [facility] Comment on above: Performed By: #### L [id number] #### [employer] Operator: ESEQUIEL IRENE ([id number]) [facility] [address] [place] [address] WBC (Bld) [#/Vol] 10.2 10*3/uL Normal 3.6-10.7 [facility] Comment on above: Performed By: #### L [id number] #### [employer] Operator: ESEQUIEL IRENE ([id number]) [facility] ([facility]) [address] [place] [address] CT CERVICAL SPINE WO IV CONT [facility] 09-30-2024 CT CERVICAL SPINE WO IV CONTRAST [...] moderate left neuroforaminal narrowing C3-C4. There is ulkv-dh-gilqtikg left and moderate right carotid artery atherosclerotic [...] MD Electronically Signed Date/Time: 09/30/2024 2:08 PM [facility] CT Cervical spine WO contras ton 09-30-2024 Impression: 1. Mild spondylolisthesis C3-C4 and C4-C5. 2. Moderate cervical spondylosis as above. Moderate left neuroforaminal narrowing C3-C4. 3. Atherosclerosis proximal cervical internal carotid arteries moderate in severity on the right. Report Dictated on Electronically Signed By: Xander Sterling MD Electronically Signed Date/Time: 09/30/2024 2:08 PM [facility] Name: [facility]EN[facility]GROOT : 1940 [id number] Exam Date/Time: 09/30/2024 13:39 Procedure: CT CERVICAL [...] moderate left neuroforaminal narrowing C3-C4. There is ydnv-mm-ckiwpkif left and moderate right carotid artery atherosclerotic calcification near the proximal internal carotid arteries. Screening examination of the lung apices demonstrates no apical pneumothorax. There is some pleural thickening in the lung apices. [facility] Xander Sterling MD - 09/30/2024 Patient Name: HENRY DEGROOT : 1940 [id number] Exam Date/Time: 09/30/2024 13:39 Procedure: CT CERVICAL [...] moderate left neuroforaminal narrowing C3-C4. There is aarj-ms-czddvsbv left and moderate right carotid artery atherosclerotic [...] MD Electronically Signed Date/Time: 09/30/2024 2:08 PM [facility] CT HEAD WO IV CONTRASTon CT HEAD WO IV CONTRAST Patient Name: HENRY LAWSON : 1940 [id number] Exam Date/Time: 09/30/2024 13:39 Procedure: CT HEAD WO IV CONTRAST Ordering Provider: MILELR KEVIN Reason For Exam: trauma Examination: CT [...] Signed Date/Time: 09/30/2024 2:03 PM EST Normal [facility] CT Head WO contraston 2023 Impression: [...] Electronically Signed Date/Time: 09/30/2024 2:03 PM EST [facility] [employer] [facility] Patient Name: HENRY DEGROOT : 1940 [id number] Exam Date/Time: 09/30/2024 13:39 Procedure: CT HEAD [...] a small right-sided parietal scalp contusion, hematoma. [facility] Xander Sterling MD - 09/30/2024 Patient Name: HENRY DEGROOT : 1940 [id number] Exam Date/Time: 09/30/2024 13:39 Procedure: CT HEAD [...] Electronically Signed Date/Time: 09/30/2024 2:[address] [facility] [address] Head WO contrastOrdered B y: Xander Sterling on 09-30-2024 [employer] Work Phone: ECG 12-LEADon 09-30-2024 ECG 12-LEAD IMPRESSION: Sinus rhythm Normal [place] Low voltage, precordial leads Electronically Signed On 09-30-2024 15:23:50 EST by Toi Miller [facility] ED Provider Noteon ED Provider Note I did not participat e in the care of this patient Linus Fuchs MD 10/02/24 0043 [facility] ED Provider Note Emergency Department [...] for clarification.) Toi Miller MD Acute Care [facility] Toi Miller MD 09/30/24 1524 [facility] ED Provider Note EMERGENCY DEPARTMENT [...] cervical internal (more content not included)... Normal [facility] Laboratory - Chemistry and C hemistry - challengeon 09-30-2024 Troponin I.cardiac [Mass/Vol] ng/mL NINF - 0.034 ng/mL [facility] No Panel Informationon 09-30 P [place] 54 degrees [facility] [place] Interval 184 ms [facility] QRS [place] 18 degrees [facility] QRSD Interval [address] [facility] QT Interval 382 ms [facility] QTC Interval 441 ms [facility] T Wave [place] 9 degrees [facility] Sinus rhythm Normal [place] Low voltage, precordial leads Electronically Signed On 09-30-2024 15:23:50 EST by Toi Albrecht MD - 09/30/2024 IMPRESSION: Sinus rhythm Normal [place] Low voltage, precordial leads Electronically Signed On 09-30-2024 15:23:50 EST by Toi Miller [facility] Radiology Study observation (narrative) [facility] alth TROPONIN, WITH SERIAL REFLEX on 09-30-2024 Troponin I.cardiac [Mass/Vol] ng/mL Normal <0.034 [facility] Comment on above: Result Comment: ORDE R COMMENTS: Patients with high levels of Biotin oral intake (ie >5 mg/day) may have falsely decreased Troponin levels. 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 [facility] Vital signson 09-30-2024 Heart rate 80 /min bpm [facility] XR Hand - right 2 Viewson No acute fracture or dislocation of the right hand. Moderate degenerative changes involving the CMC joint and PIP joints. Report Dictated on Electronically Signed By: Raquel Clark MD Electronically Signed Date/Time: 09/30/2024 2:09 PM EST [facility] Patient Name: HENRY DEGROOT : 1940 [...] mildly osteopenic. The soft tissues are unremarkable. [facility] Albina Clark MD - 09/30/2024 Patient Name: [...] Electronically Signed Date/Time: 09/30/2024 2:09 PM EST [facility] Radiology Study observation (narrative) [facility] alth XR Hand - right 2 ViewsOrder ed By: Albina Clark on 09-30-[address] [facility] [employer] Work Phone: XR Pelvis 1 or 2 Viewson Impression: No evidence of fracture or subluxation of the pelvis. Report Dictated on Electronically Signed By: Xander Sterling MD Electronically Signed Date/Time: 09/30/2024 2:10 PM [facility] [employer] [facility] Patient Name: HENRY DEGROOT : 1940 [...] slightly larger on the left. There is lvrc-ms-tcngsing lower lumbar spondylosis. [facility] Xander Sterling MD - 09/30/2024 Patient [...] slightly larger on the left. There is atbr-hq-wtizkorj lower lumbar spondylosis. IMPRESSION: Impression: No evidence of fracture or subluxation of the pelvis. Report Dictated on Electronically Signed By: Xander Sterling MD Electronically Signed Date/Time: 09/30/2024 2:10 PM [facility] [employer] [facility] Radiology Study observation (narrative) [facility] Cardiology Visit Reporton Cardiology Visit Report [facility] [address] [place] [address]. 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 Accompanied by: Daughter Is patient in pain?: No Allergies No Known Allergies Allergy (Verified 09/21/24 09:30) Medications ???Medication ???Instructions ???Recorded ???Confirmed ???Type vit C 250 mg-vit E 90 mg-zinc 40 1 ea PO BID eye vitamin 05/07/18 09/21/24 History mg-copper 1 oi-oucnub-zbalgr capsule apixaban 5 mg tablet 5 mg [...] denosumab 60 mg/mL subcutaneous 60 mg subcut [id number] Osteoporosis 05/02/23 09/21/24 History syringe (Prolia) metoprolol [...] (PF) 15 mg/0.1 mL 15 mg intravitreal [id number] Eyes 09/21/24 09/21/24 History intravitreal solution (Syfovre (PF)) Ejection fraction %: 55 (55-60) Have you fallen in the past year?: Yes (July 05, passed out and fell) [facility] Medical History (Updated 09/21/24 @ 09:55 by Tai Krishna RUNNER MAN, RUNNER MAN-C) History of fall Wears hearing aid Wears [...] right breast (more content not included)... Normal [facility] MA MAMMOGRAM SCREENING LEFT W/Mehrdad 03-17-2024 [place] MAMMOGRAM SCREENING LEFT W/RICHARD ORIGINAL FROM: JAREN KWANTHE [facility] [address], [place] [address] PROCEDURE FOR: HENRY DEGROOT [address] [place] [address] Home: PID#: [id number] Exam#: [id number] : 1940 Age: 83 TO: ИВАН LOPEZ DO [address] [address] Fax: NO FAX EXAMINATION: SCREENING DIGITAL LEFT [...] 03/17/2024 5:47:44 PM Ordering Provider: ИВАН LOPEZ Director Of Psychology: JUAN CARLOS SPRAGUE (Urszula)(M) letter sent: Normal BI-RADS 1 and 2 Mammogram BI-RADS: 2 Benign Normal [facility] ([place]) LABORATORYOrdered By: Chichi Parra on 03-04-2024 Albumin DL <= 20 mg/L (U) [Mass/Vol] 263 mcg/dL Invalid Interpretation Code AO ADM SS Albumin/Creatinine DL <= 20 mg/L (U) [Mass ratio] 2 mcg/mg Normal 0 - 30 mcg/mg AO ADM SS Creatinine (U) [Mass/Vol] 106.0 mg/dL Normal 28.0 - 117.0 mg/dL AO ADM SS MALBRon 03-04-2024 U Creatinine 106.0 mg/dL Normal 28.0-117.0 [facility] ([place]) Comment on above: Performed By: #### M ALBR #### [address] [address] U Microalb 263 mcg/dL Normal [facility] ([place]) Comment on above: Performed By: #### M ALBR #### [address] [address] U Ratio Alb/Cre 2 mcg/mg Normal 0-30 [facility] ([place]) Comment on above: Performed By: #### M ALBR #### [address] [address] .Auto Diffon 02-04-2024 Basophil, Absolute 0.0 10 3/mcL Normal 0.0-0.2 Count includes the [facility] ([place]) Comment on above: Performed By: #### V IDH, LIPID, GFR, CMP, CBC, ANEU, TSH, ADIFF #### [address] [address] Basophils/100 WBC (Bld) 0.5 % Normal 0.0-2.5 [facility] ([place]) Comment on above: Performed By: #### V IDH, LIPID, GFR, CMP, CBC, ANEU, TSH, ADIFF #### [address] [address] Eosinophil, Absolute 0.1 10 3/mcL Normal 0.0-0.4 [facility] ([place]) Comment on above: Performed By: #### V IDH, LIPID, GFR, CMP, CBC, ANEU, TSH, ADIFF #### [address] [address] Eosinophils/100 WBC (Bld) 2.0 % Normal 0.0-7.0 [facility] ([place]) Comment on above: Performed By: #### V IDH, LIPID, GFR, CMP, CBC, ANEU, TSH, ADIFF #### [address] [address] Lymphocyte, Absolute 1.9 10 3/mcL Normal 0.8-3.9 [facility] ([place]) Comment on above: Performed By: #### V IDH, LIPID, GFR, CMP, CBC, ANEU, TSH, ADIFF #### [address] [address] Lymphocytes/100 WBC (Bld) 25.7 % Normal 10.0-50.0 [facility] ([place]) Comment on above: Performed By: #### V IDH, LIPID, GFR, CMP, CBC, ANEU, TSH, ADIFF #### [address] [address] Monocyte, Absolute 0.7 10 3/mcL Normal 0.2-1.0 Count includes the [facility] ([place]) Comment on above: Performed By: #### V IDH, LIPID, GFR, CMP, CBC, ANEU, TSH, ADIFF #### [address] [address] Monocytes/100 WBC (Bld) 9.5 % Normal 1.7-13.0 [facility] ([place]) Comment on above: Performed By: #### V IDH, LIPID, GFR, CMP, CBC, ANEU, TSH, ADIFF #### [address] [address] Neutrophils/100 WBC (Bld) 62.3 % Normal 37.0-80.0 [facility] ([place]) Comment on above: Performed By: #### V IDH, LIPID, GFR, CMP, CBC, ANEU, TSH, ADIFF #### [address] [address] .GFRon 02-04-2024 GFR 80 ml/min/1.73sqm Normal [facility] ([place]) Comment on above: Result Comment: GFR Population [...] GFR, CMP, CBC, ANEU, TSH, ADIFF #### [address] [address] GFR Non- 66 ml/min/1.73sqm Normal [facility] ([place]) Comment on above: Result Comment: GFR Population [...] GFR, CMP, CBC, ANEU, TSH, ADIFF #### [address] [address] .NEUABSon 02-04-2024 Neutrophil, Absolute 4.6 10 3/mcL Normal 2.9-6.2 [facility] ([place]) Comment on above: Performed By: #### V IDH, LIPID, GFR, CMP, CBC, ANEU, TSH, ADIFF #### [address] [address] CBCon 02-04-2024 Erythrocyte distribution width (RBC) [Ratio] 12.8 % Normal 11.5-14.5 [facility] ([place]) Comment on above: Performed By: #### V IDH, LIPID, GFR, CMP, CBC, ANEU, TSH, ADIFF #### [address] [address] Hematocrit (Bld) [Volume fraction] 41.2 % Normal 37.0-47.0 [facility] ([place]) Comment on above: Performed By: #### V IDH, LIPID, GFR, CMP, CBC, ANEU, TSH, ADIFF #### [address] [address] Hgb 14.2 G/dL Normal 12.0-16.0 [facility] ([place]) Comment on above: Performed By: #### V IDH, LIPID, GFR, CMP, CBC, ANEU, TSH, ADIFF #### [address] [address] MCH (RBC) [Entitic mass] 32.9 pg High 27.0-31.2 [facility] ([place]) Comment on above: Performed By: #### V IDH, LIPID, GFR, CMP, CBC, ANEU, TSH, ADIFF #### [address] [address] MCHC 34.4 G/dL Normal 33.0-37.0 [facility] ([place]) Comment on above: Performed By: #### V IDH, LIPID, GFR, CMP, CBC, ANEU, TSH, ADIFF #### [address] [address] MCV (RBC) [Entitic vol] 95.6 fL High 80.0-94.0 [facility] ([place]) Comment on above: Performed By: #### V IDH, LIPID, GFR, CMP, CBC, ANEU, TSH, ADIFF #### [address] [address] Platelet 289 10 3/mcL Normal 130-400 [facility] ([place]) Comment on above: Performed By: #### V IDH, LIPID, GFR, CMP, CBC, ANEU, TSH, ADIFF #### [address] [address] Platelet mean volume (Bld) [Entitic vol] 9.0 fL Normal 7.4-10.4 [facility] ([place]) Comment on above: Performed By: #### V IDH, LIPID, GFR, CMP, CBC, ANEU, TSH, ADIFF #### [address] [address] RBC 4.31 10 6/mcL Normal 4.20-5.40 [facility] ([place]) Comment on above: Performed By: #### V IDH, LIPID, GFR, CMP, CBC, ANEU, TSH, ADIFF #### [address] [address] WBC 7.4 10 3/mcL Normal 4.6-10.8 [facility] ([place]) Comment on above: Performed By: #### V IDH, LIPID, GFR, CMP, CBC, ANEU, TSH, ADIFF #### [address] [address] CMPon 02-04-2024 Albumin Level 3.0 G/dL Low 3.4-4.8 [facility]) Comment on above: Performed By: #### V IDH, LIPID, GFR, CMP, CBC, ANEU, TSH, ADIFF #### [address] [address] Albumin/Globulin [Mass ratio] 0.8 {ratio} Low 1.1-2.5 [facility] ([place]) Comment on above: Performed By: #### V IDH, LIPID, GFR, CMP, CBC, ANEU, TSH, ADIFF #### [address] [address] ALP [Catalytic activity/Vol] 64 U/L Normal 40-135 [facility] ([place]) Comment on above: Performed By: #### V IDH, LIPID, GFR, CMP, CBC, ANEU, TSH, ADIFF #### [address] [address] ALT [Catalytic activity/Vol] 22 U/L Normal 14-59 [facility] ([place]) Comment on above: Performed By: #### V IDH, LIPID, GFR, CMP, CBC, ANEU, TSH, ADIFF #### [address] [address] AST [Catalytic activity/Vol] 20 U/L Normal 10-40 [facility] ([place]) Comment on above: Performed By: #### V IDH, LIPID, GFR, CMP, CBC, ANEU, TSH, ADIFF #### [address] [address] Bili Total 0.5 mg/dL Normal 0.2-1.0 [facility] ([place]) Comment on above: Result Comment: Use of this assay is not recommended for patients undergoing treatment with eltrombopag due to the potential for falsely elevated results. Performed By: #### V IDH, LIPID, GFR, CMP, CBC, ANEU, TSH, ADIFF #### [address] [address] BUN/Creatinine Ratio 25 ratio Normal 7-27 Count includes the [facility] ([place]) Comment on above: Performed By: #### V IDH, LIPID, GFR, CMP, CBC, ANEU, TSH, ADIFF #### [address] [address] Calcium [Mass/Vol] 9.2 mg/dL Normal 8.4-10.2 [facility] ([place]) Comment on above: Performed By: #### V IDH, LIPID, GFR, CMP, CBC, ANEU, TSH, ADIFF #### [address] [address] Chloride [Moles/Vol] 104 mmol/L Normal 98-107 Count includes the [facility] ([place]) Comment on above: Performed By: #### V IDH, LIPID, GFR, CMP, CBC, ANEU, TSH, ADIFF #### [address] [address] CO2 [Moles/Vol] 30 mmol/L Normal 23-31 [facility] ([place]) Comment on above: Performed By: #### V IDH, LIPID, GFR, CMP, CBC, ANEU, TSH, ADIFF #### [address] [address] Creatinine [Mass/Vol] 0.83 mg/dL Normal 0.55-1.02 [facility] ([place]) Comment on above: Performed By: #### V IDH, LIPID, GFR, CMP, CBC, ANEU, TSH, ADIFF #### [address] [address] Electrolyte Balance 5.0 mEq/L Normal 4.0-15.0 [facility] ([place]) Comment on above: Performed By: #### V IDH, LIPID, GFR, CMP, CBC, ANEU, TSH, ADIFF #### [address] [address] Globulin 3.8 G/dL Normal [facility] ([place]) Comment on above: Performed By: #### V IDH, LIPID, GFR, CMP, CBC, ANEU, TSH, ADIFF #### [address] [address] Glucose [Mass/Vol] 96 mg/dL Normal 83-110 [facility] ([place]) Comment on above: Performed By: #### V IDH, LIPID, GFR, CMP, CBC, ANEU, TSH, ADIFF #### [address] [address] Potassium [Moles/Vol] 4.7 mmol/L Normal 3.5-5.1 [facility] ([place]) Comment on above: Performed By: #### V IDH, LIPID, GFR, CMP, CBC, ANEU, TSH, ADIFF #### [address] [address] Sodium [Moles/Vol] 139 mmol/L Normal 136-145 [facility] ([place]) Comment on above: Performed By: #### V IDH, LIPID, GFR, CMP, CBC, ANEU, TSH, ADIFF #### [address] [address] Total Protein 6.8 G/dL Normal 6.4-8.2 [facility] ([place]) Comment on above: Performed By: #### V IDH, LIPID, GFR, CMP, CBC, ANEU, TSH, ADIFF #### [address] [address] Urea nitrogen [Mass/Vol] 21 mg/dL High 7-18 [facility] ([place]) Comment on above: Performed By: #### V IDH, LIPID, GFR, CMP, CBC, ANEU, TSH, ADIFF #### [address] [address] LABORATORYOrdered By: SYSTEM SYSTEM on 02-04-2024 25-hydroxyvitamin [...] 02-04-2024 Cholesterol [Mass/Vol] 207 mg/dL High 0-200 [facility] ([place]) Comment on above: Result Comment: Chol esterol Reference Interval: Less than 200 Desirable 200-239 Borderline high risk 240 and above High risk Performed By: #### V IDH, LIPID, GFR, CMP, CBC, ANEU, TSH, ADIFF #### [address] [address] Cholesterol in HDL [Mass/Vol] 82 mg/dL High 40-60 [facility] ([place]) Comment on above: Performed By: #### V IDH, LIPID, GFR, CMP, CBC, ANEU, TSH, ADIFF #### [address] [place] [place], [place] [address] Cholesterol in LDL [Mass/Vol] 113 mg/dL Normal 0-130 [facility] ([place]) Comment on above: Performed By: #### V IDH, LIPID, GFR, CMP, CBC, ANEU, TSH, ADIFF #### [address] [place], [place] [address] Triglyceride [Mass/Vol] 62 mg/dL Normal 0-150 [facility] ([place]) Comment on above: Result Comment: Trig lyceride Reference Interval: Less than 150 Normal 150-199 Borderline high risk 200-499 High risk 500 or higher Very high risk Performed By: #### V IDH, LIPID, GFR, CMP, CBC, ANEU, TSH, ADIFF #### [place] [address] [address] TSHon 02-04-2024 TSH Qn 1.85 m[IU]/L Normal 0.36-3.74 [facility] ([place]) Comment on above: Performed By: #### V IDH, LIPID, GFR, CMP, CBC, ANEU, TSH, ADIFF #### [address] [address] VIDHon 02-04-2024 Vit. D 25-Hydroxy 30.7 ng/mL Normal [facility] ([place]) Comment on above: Result Comment: Inte rpretive Values Based on Total 25(OH) Vitamin D: Deficient <20 ng/mL Insufficient 20 - <30 ng/mL Sufficient 30-100 ng/mL Performed By: #### V IDH, LIPID, GFR, CMP, CBC, ANEU, TSH, ADIFF #### [address] [address] BD BONE DENSITY DEXA AXIAL S KELETONon [...] 01/13/2024 10:46:45 AM Ordering Provider: ИВАН LOPEZ [facility] ([place]) Absolute lymphocyte countOrd ered By: Thomas Mayen on 11-29-2023 Lymphocytes Auto (Unsp spec) [#/Vol] 1.22 10*3/uL 0.83-4.51 [facility] Automated lymphocyte count a s percentage of total leukocytesOrdered By: Thomas Mayen on 11-29-2023 Lymphocytes/100 WBC Auto (Unsp spec) 8.4 % 19-41 [facility] Basophil percentageOrdered B y: Thomas Mayen on 11-29-2023 Basophils/100 WBC (Bld) 0.1 % 0-1 [facility] Chloride [Moles/Vol] 110 mmol/L 98-107 [facility] Eosinophils/100 WBC (Bld) 0.3 % 0-5 [facility] Glucose [Mass/Vol] 140 mg/dL 74-106 [facility] Comment on above: Fasting Glucose resu lt greater than or equal to 126 mg/dL suggests DIABETES MELLITUS per A.D.A. criteria. Hemoglobin (Bld) [Mass/Vol] 14.8 g/dL 12.0-15.0 [facility] Monocytes/100 WBC (Bld) 5.9 % 0-10 [facility] Neutrophils (Bld) [#/Vol] 12.3 10*3/uL 2.0-7.7 [facility] Neutrophils/100 WBC (Bld) 84.9 % 47-70 [facility] Potassium [Moles/Vol] 3.8 mmol/L 3.5-5.1 [facility] Sodium [Moles/Vol] 140 mmol/L 136-145 [facility] WBC (Bld) [#/Vol] 14.5 10*3/uL 4.4-11.0 [facility] Determination of erythrocyte mean corpuscular volume (MCV)Ordered By: Thomas Mayen on 11-29-2023 MCV (RBC) [Entitic vol] 99.8 fL 81-99 [facility] Erythrocyte distribution wid th ratioOrdered By: Thomas Mayen on 11-29-2023 Erythrocyte distribution width (RBC) [Ratio] 12.2 % 11.6-14.6 [facility] Erythrocyte distribution wid th standard deviationOrdered By: Thomas Mayen on 11-29-2023 Erythrocyte distribution width (RBC) [Entitic vol] 44.4 fL 35.1-43.9 [facility] Hematocrit Auto (Bld) [Volum e fraction]Ordered By: Thomas Mayen on 11-29-2023 Hematocrit (Bld) [Volume fraction] 46.2 % 37-47 [facility] Immature granulocytes/100 WB C Auto (Bld)Ordered By: Thomas Mayen on 11-29-2023 Immature granulocytes/100 WBC (Bld) 0.400 % 0.0-0.9 [facility] Comment on above: IG% - Immature Granu locytes (promyelocytes, myelocytes and metamyelocytes) > 1% indicates that a LEFT SHIFT is Present. Laboratory - Chemistry and C hemistry - challengeOrdered By: Thomas Mayen on 11-29-2023 CO2 [Moles/Vol] 26.0 mmol/L 21.0-32.0 [facility] Urea nitrogen/Creatinine [Mass ratio] 25.5 mg/mg 10-20 [facility] Laboratory - Hematology and Cell countsOrdered By: Thomas Mayen on 11-29-2023 MCH (RBC) [Entitic mass] 32.0 pg 27.0-32.0 [facility] MCHC (RBC) [Mass/Vol] 32.0 g/dL 32-36 [facility] Nucleated RBC/100 WBC (Bld) [Ratio] 0 % 0-5 [facility] Platelets (Bld) [#/Vol] 233 10*3/uL 150-450 [facility] Laboratory - Microbiology an d Antimicrobial susceptibilityOrdered By: Thomas Mayen on 11-29-2023 SARS-CoV-2 (COVID-19) RNA CHELSIE+probe Ql (Unsp spec) [facility] No Panel InformationOrdered By: Thomas Mayen on 11-29-2023 Troponin I High Sensitivity 14 pg/mL 3.0-54.0 [facility] Comment on above: Please Note: [place] t Units and Gender Specific Reference Ranges. For more information see Policy Stat Procedure [place] High Sensitivity Troponin (TNIH) and attachments. Estimated Creatinine Clearance Calc 52.86 ml/min [facility] Estimated GFR (MDRD) Amer 90 mL/min >60 [facility] Comment on above: GFR Calc Estimated GFR (MDRD) Non-Af Amer 74 mL/min >60 [facility] Comment on above: Non- GFR Calc Platelet mean volume Sanjiv-Ec ker (Bld) [Entitic vol]Ordered By: Thomas Mayen on 11-29-2023 Platelet mean volume (Bld) [Entitic vol] 11.5 fL 6.2-12.0 [facility] RBC Auto (Bld) [#/Vol]Ordere d By: Thomas Mayen on 11-29-2023 RBC (Bld) [#/Vol] 4.63 10*6/uL 4.2-5.4 [facility] Serum or plasma calcium isela urement (mass/volume)Ordered By: Thomas Mayen on 11-29-2023 Calcium [Mass/Vol] 8.8 mg/dL 8.5-10.1 [facility] Serum or plasma creatinine m easurement (mass/volume)Ordered By: Thomas Mayen on 11-29-2023 Creatinine [Mass/Vol] 0.78 mg/dL 0.55-1.02 [facility] Comment on above: The validity of the calculated GFR & GFRAA in patients over 70 years has not been determined. Clinical correlation is essential. Serum or plasma urea nitroge n measurement (mass/volume)Ordered By: Thomas Mayen on 11-29-2023 Urea nitrogen [Mass/Vol] 20 mg/dL 7-18 [facility] Thin prep Papanicolaou smear with manual screeningOrdered By: Thomas Mayen on 11-29-2023 Thin prep Papanicolaou smear with manual screening 4 5-15 [facility] LABORATORYOrdered By: Loy Dhillon on 11-30-2022 Appearance [...] cfu/ml. No Significant growth. Sensitivity not indicated. [facility] [facility] AMIKACIN:SUSC:PT:ISOLATE:ORD QN:MICon 11-24-2022 Amikacin BENEDICT [Susc] >100,000 cfu/ml Escherichia coli [facility] Amikacin BENEDICT [Susc]on 2022 Escherichia coli Escherichia coli [facility] CEFAZOLIN:SUSC:PT:ISOLATE:OR DQN:MICon 08-23-2022 ceFAZolin BENEDICT [Susc] >100,000 cfu/ml Escherichia coli [facility] ceFAZolin BENEDICT [Susc]on 08-23 Escherichia coli Escherichia coli [facility] LABORATORYOrdered By: Loy Dhillon on 02-02-2022 Albumin [...] Chemistry S OTARon 06-30-2020 OT Assessment Report [facility] Occupational Therapy Community Mobility and IADL Report [...] she demonstrated functional vision as required by [facility] for far acuity and visual ervin, within raw score normal for age on visual perceptual screening, orientation/verbal problem solving/recall memory/concentration/re trieval for more penitentiary information/Clock drawing performance, functional physical skills; she [...] her mom's decreased concentration/sustained attention/being easily distracted, [facility] PATIENT NAME: HENRY DEGROOT [address] [facility] [address] MEDICAL REC #: [id number] [place] [address] ADMIT DATE: SERVICE DATE: 06/30/20 Occupational Therapy [...] Henry's current situation and indication for driving cessation/[place] [facility] [place] as highlighted in this report. She has excellent support available while in wonderful situation that promotes her autonomy while she has assist as needed. Her current license is suspended with this therapist recommending that Henry's daughter take her to get [place] identification card in future at the [facility] while this therapist will provide information to physician to report concern to [facility]. Also discussed recommendation for increased activity and possible counseling and socialization with peers while expect she would benefit from all of the options if she is willing. 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 If the patient's physical and mental status remains the same as during the evaluation period, the recommendations in the report should be considered valid for 6 months. Beyond that time, a re - evaluation may be necessary. Signed by: JUAN CARLOS RIVERO, OT/L, CDRS, CDI/PD 07/07/2020 14:08:35 [facility] PATIENT NAME: HENRY DEGROOT [address] [facility] [address] MEDICAL REC #: [id number] [place] [address] ADMIT DATE: SERVICE DATE: 06/30/20 Occupational Therapy Assessment ATTENDING DESEAN: Mesha Dean [facility] Occupational Therapy Performance Skills Evaluation Therapy Diagnosis: [...] Initial Evaluation Date: 06/30/2020 Referring Clinician: ELLEN HendersonTURBINE ENGINEER Medical Diagnosis: R MCA stroke Date of Onset: 02/2016 Past Medical History: breast cancer, laser surgery on B eyes for pressure (glaucoma), B cataract surgery, 02/17 R CVA, 02/19 seizure (uncertain if she also has macular degeneration in her R eye), elevated cholesterol, depression Current Medications: Eliquis, Pravastatin, Toprol, Levetiracetem, Duloxetine, [place] Q, Joint Advantage, Preservision AREDS, tylenol Demographics: Age: 80Y Gender: Female Primary Language: Trinidadian Preferred Language: Trinidadian Screening for COVID-19 Does the patient/client present [...] all self care tasks on her own [facility] PATIENT NAME: HENRY DEGROOT [address] [facility] [address] MEDICAL REC #: [id number] [place] [address] ADMIT DATE: SERVICE DATE: 06/30/20 Occupational Therapy [...] 8 years of formal schooling (raised in [facility]); worked for 20 years at [employer]; reading, word searches, cooking Driving History: Driving for: not sure at what age she started driving while she stopped when she was 75 due to having the stroke years. Time Since Last Driven: 02/17 First Mate's License Expiration Date: 2020 () State of: [place]; corrective lenses required for driving Type of Vehicle: 2015 Staci gonzalez (she has never driven the same while purchased same after she had her stroke) Type of Insurance: [employer] Type of Driving Anticipated: Local Daytime [place] Reason for Driving is: [place] Social/Leisure Home management History of Accidents: Patient does not have a history of accidents. Traffic Violations: Patient does not have any traffic violations. Patient Report: Henry shared that she would like to move out on her own to [facility] while also sharing that she owns a condo in [place] she could also consider although it is rented out. She is also interested in considering involvement in [employer] program however she has never been involved with this previously and is not certain where the options exist. She shared that she thinks she is capable of moving out on her own while also included that she would like to find a man in the future also. Finally she would like to return to [facility] however has not initiated to her daughter [...] unable to articulate. did not indicate pain [facility] PATIENT NAME: HENRY DEGROOT [address] [facility] [address] MEDICAL REC #: [id number] [place] [address] ADMIT DATE: SERVICE DATE: 06/30/20 Occupational Therapy Assessment ATTENDING DESEAN: Mesha Dean Social History: Marital Status: since 2017 Children: 2 daughters Reside: lives in same house with 1, other lives in [facility] Employment Status: none Recreational Activities/Hobbies: none [...] keep moving back to left COGNITION Screening [facility] PATIENT NAME: HENRY DEGROOT [address] [facility] [address] MEDICAL REC #: [id number] [place] [address] ADMIT DATE: SERVICE DATE: 06/30/20 Occupational Therapy Assessment ATTENDING DESEAN: Mesha Dean Orientation: No impairment detected (5/5 correct orientation reponses). Attention: [place] making test Part B: 278 seconds - impaired. Functional performance on this alternating attention task <180 sec therefore not within same. Safety/Judgment/Problem Solving: No impairment detected (identifies 3/3 appropriate solutions for emergency responses). Memory: score of 4 on Short Blessed Cognitive screen which is in normal to minimally impaired range Also noted during the evaluation: Attention - required redirection multiple times. [place] thinking. Delayed processing. Tangential speech. Perseveration. Impulsivity. [...] lacking sense of pressure while unable to district court judge the same. Coordination: Within functional limits. [...] at their daughter's house who was willing [facility] PATIENT NAME: HENRY DEGROOT [address] [facility] [address] MEDICAL REC #: [id number] [place] [address] ADMIT DATE: SERVICE DATE: 06/30/20 Occupational Therapy [...] about moving out on her own [facility] in [facility]. Henry also has not been out of the house for about 1.5 years other than for appointments while she refuses to go to [employer] to do her own shopping with her [...] various concerns indicated in this report, driving [place] [facility]/cessation necessary. This therapist did talk at length [...] exercise/activity plan. Cognitive functioning. Audience: Patient., daughter [facility] PATIENT NAME: HENRY DEGROOT [address] [facility] [address] MEDICAL REC #: [id number] [place] [id number] ADMIT DATE: SERVICE DATE: 06/30/20 Occupational Therapy Assessment ATTENDING DESEAN: Mesha Dean Mode: Explanation. Printed material provided. Response: Applied knowledge. Verbalized understanding. Demonstrated skill. Needs reinforcement. ASSESSMENT Support Structure: Support structure is good. Family member willing to assist patient. Response to Evaluation: The session was tolerated fairly, as evidenced by: Henry was upset with the [place] [facility] from driving indication. PLAN Necessity: Patient does [...] minutes (Timed: 90, Untimed: 60) 90.00 Timed: [89291] OT-ADL/HOME MGT EACH 15 MIN* 60.00 Untimed: [32928] OT-EVALUATION HIGH COMPLEX Signed by: JUAN CARLOS RIVERO OT/Wendy, CDRS, CDI/PD 07/04/2020 16:07:29 [facility] PATIENT NAME: HENRY DEGROOT [address] [facility] [address] MEDICAL REC #: [id number] [place] [address] ADMIT DATE: SERVICE DATE: 06/30/20 Occupational Therapy Assessment ATTENDING PHY: Mesha Dean [facility] CR Chest PA/LATon 04-12-2018 CR Chest PA/LAT Patient Name: HENRY DEGROOT Diagnostic Radiology Exam Date/Time 04/12/2018 13:14:04 EDT Exam CR Chest PA/LAT Ordering Physician DENNY JOSE AMANDA A. Accession Number [id number] CPT4 Codes 33605 () Reason For Exam palpitations Report CHEST: [...] Transcribed Date and Time: 04/12/2018 1:26 Normal [facility] CT Head or Brain w/o Contras ton 04-12-2018 CT Head or Brain w/o Contrast Patient Name: HENRY DEGROOT CT Exam Date/Time 04/12/2018 12:21:[address] Head or Brain w/o Contrast Ordering Physician DENNY JOSE, CAS [place] Accession Number [id number] CPT4 Codes 01245 () Reason For Exam dizzy Report CLINICAL [...] Transcribed Date and Time: 04/12/2018 12:43 Normal [facility] Comp Metabolic Panelon 04-12 Alanine aminotransferase (ALT) 21 U/L Normal 13-69 [facility] Comment on above: Performed By: #### H EMDF, CMP3, MG3, TROPN ####[facility] [id number] [place] [address] Alkaline phosphatase (ALP) 58 U/L Normal 38-126 [facility] Comment on above: Performed By: #### H EMDF, CMP3, MG3, TROPN ####[place] [place] [address] Anion gap 4 Normal [facility] Comment on above: Performed By: #### H EMDF, CMP3, MG3, TROPN ####[address] Aspartate aminotransferase (AST) 27 U/L Normal 15-46 [facility] Comment on above: Performed By: #### H EMDF, CMP3, MG3, TROPN ####[address] Calcium 9.5 mg/dL Normal 8.4-10.2 [facility] Comment on above: Performed By: #### H EMDF, CMP3, MG3, TROPN ####[address] CO2 28 mmol/L Normal 22-30 [facility] Comment on above: Performed By: #### H EMDF, CMP3, MG3, TROPN ####[address] Glucose mass conc 113 mg/dL High 70-100 [facility] Comment on above: Performed By: #### H EMDF, CMP3, MG3, TROPN ####[address] Protein 6.9 g/dL Normal 6.3-8.2 [facility] Comment on above: Performed By: #### H EMDF, CMP3, MG3, TROPN ####[address] Urea nitrogen 18 mg/dL Normal 7-20 [facility] Comment on above: Performed By: #### H EMDF, CMP3, MG3, TROPN ####[address] Bilirubin (total) 0.5 mg/dL Normal 0.2-1.3 [facility] Comment on above: Performed By: #### H EMDF, CMP3, MG3, TROPN ####[address] [address] [place], [place] Creatinine 0.70 mg/dL Normal 0.52-1.25 [facility] Comment on above: Performed By: #### H EMDF, CMP3, MG3, TROPN ####[address] [place], [place] eGFR (black) mL/min/{1.73_m2} Normal >60 [facility] Comment on above: Performed By: #### H EMDF, CMP3, MG3, TROPN ####[address] eGFR (non-black) mL/min/{1.73_m2} Normal >60 [facility] Comment on above: Result Comment: Sour ce- MDRD equation with creatinine calibration to IDMS(NKDEP) eGFR not recommended for drug dose adjustment Performed By: #### H EMDF, CMP3, MG3, TROPN ####[address] Albumin 3.8 g/dL Normal 3.5-5.0 [facility] Comment on above: Performed By: #### H EMDF, CMP3, MG3, TROPN ####[address] Chloride 107 mmol/L Normal 98-107 [facility] Comment on above: Performed By: #### H EMDF, CMP3, MG3, TROPN ####[address] Potassium molar conc 4.1 mmol/L Normal 3.5-5.1 [facility] Comment on above: Performed By: #### H EMDF, CMP3, MG3, TROPN ####[address] Sodium 140 mmol/L Normal 137-145 [facility] Comment on above: Performed By: #### H EMDF, CMP3, MG3, TROPN ####[address] Hemogram w/ Autodiffon 04-12 Abs Baso Cnt 0.0 10*3/uL Normal 0.0-0.2 [facility] Comment on above: Performed By: #### H EMDF, CMP3, MG3, TROPN ####[address] Basophils/100 WBC Auto (Bld) 0.4 % Normal 0.0-2.0 [facility] Comment on above: Performed By: #### H EMDF, CMP3, MG3, TROPN ####[address] Eosinophils 0.1 10*3/uL Normal 0.0-0.5 [facility] Comment on above: Performed By: #### H EMDF, CMP3, MG3, TROPN ####[address] Eosinophils/100 leukocytes 1.2 % Normal 1.0-6.0 [facility] Comment on above: Performed By: #### H EMDF, CMP3, MG3, TROPN ####[address] Erythrocyte distribution width Auto Ratio (RBC) 12.6 % Normal 11.5-14.5 [facility] Comment on above: Performed By: #### H EMDF, CMP3, MG3, TROPN ####[address] Erythrocytes (RBC) 4.34 10*6/uL Normal 3.80-5.20 [facility] Comment on above: Performed By: #### H EMDF, CMP3, MG3, TROPN ####[address] Granulocytes/100 WBC (Bld) 58.4 % Normal 40.0-80.0 [facility] Comment on above: Performed By: #### H EMDF, CMP3, MG3, TROPN ####[address] Hematocrit (HCT) 42.4 % Normal 35.0-47.0 [facility] Comment on above: Performed By: #### H EMDF, CMP3, MG3, TROPN ####[address] Hemoglobin mass conc (Bld) 14.7 g/dL Normal 11.7-16.0 [facility] Comment on above: Performed By: #### H EMDF, CMP3, MG3, TROPN ####[address] Lymphocytes 2.1 10*3/uL Normal 1.0-4.3 [facility] Comment on above: Performed By: #### H EMDF, CMP3, MG3, TROPN ####[address] Lymphocytes/100 leukocytes 27.3 % Normal 20.0-40.0 [facility] Comment on above: Performed By: #### H EMDF, CMP3, MG3, TROPN ####[address] MCH 33.8 pg Normal 26.0-34.0 [facility] Comment on above: Performed By: #### H EMDF, CMP3, MG3, TROPN ####[address] MCHC mass conc (RBC) 34.6 % Normal 32.0-36.0 [facility] Comment on above: Performed By: #### H EMDF, CMP3, MG3, TROPN ####[address] MCV 97.7 fL Normal 79.0-98.0 [facility] Comment on above: Performed By: #### H EMDF, CMP3, MG3, TROPN ####[address] Monocytes 1.0 10*3/uL High 0.0-0.8 [facility] Comment on above: Performed By: #### H EMDF, CMP3, MG3, TROPN ####[address] [place], [place] Monocytes/100 leukocytes 12.7 % High 2.0-10.0 [facility] Comment on above: Performed By: #### H EMDF, CMP3, MG3, TROPN ####[address] [place], [place] Neutrophils 4.5 10*3/uL Normal 1.8-7.0 [facility] Comment on above: Performed By: #### H EMDF, CMP3, MG3, TROPN ####[address] Platelet mean volume (PMV) 9.3 fL Normal 7.4-10.4 [facility] Comment on above: Performed By: #### H EMDF, CMP3, MG3, TROPN ####[address] Platelets 214 10*3/uL Normal 140-440 [facility] Comment on above: Performed By: #### H EMDF, CMP3, MG3, TROPN ####[address] WBC (Leukocytes) 7.8 10*3/uL Normal 3.6-10.7 [facility] Comment on above: Performed By: #### H EMDF, CMP3, MG3, TROPN ####[address] Magnesiumon 04-12-2018 Magnesium 2.1 mg/dL Normal 1.6-2.3 [facility] Comment on above: Performed By: #### H EMDF, CMP3, MG3, TROPN ####[address] Troponin Ion 04-12-2018 Troponin I.cardiac mass conc ng/mL Normal 0.000-0.03 4 [facility] Comment on above: Result Comment: 0.04 6 - 0.400 = Indeterminate> 0.400 = Consider Myocardial Injury Performed By: #### H EMDF, CMP3, MG3, TROPN ####[address] [place] [address] Lab Report: Lipid Profileon 10-17-2017 Cholesterol 168 mg/dL Invalid Interpretation Code 200 [employer] Phone: [phone] HDL Cholesterol 98 mg/dL Invalid Interpretation Code [employer] Work Phone: [phone] LDL Cholesterol 57 mg/dL Invalid Interpretation Code 0-130 [employer] Work Phone: [phone] Triglyceride 64 mg/dL Invalid Interpretation Code [employer] Work Phone: [phone] very low density lipoproteins 13 mg/dL Invalid Interpretation Code 5-40 [employer] Work Phone: [phone] Lab Report: Liver Profileon 10-17-2017 Alanine aminotransferase (ALT) 20 U/L Invalid Interpretation Code 12-78 [employer] Work Phone: [phone] Albumin 3.4 g/dL Invalid Interpretation Code 3.4-5.0 [employer] Work Phone: [phone] Alkaline phosphatase (ALP) 68 U/L Invalid Interpretation Code 45-117 [employer] Work Phone: [phone] Aspartate aminotransferase (AST) 19 U/L Invalid Interpretation Code 15-37 [employer] Work Phone: [phone] Bilirubin (direct) 0.16 mg/dL Invalid Interpretation Code 0.00-0.30 [employer] Phone: [phone] Bilirubin (total) 0.70 mg/dL Invalid Interpretation Code 0.20-1.00 [employer] Phone: [phone] Globulin 3.5 g/dL Invalid Interpretation Code 2.2-4.2 [employer] Phone: [phone] Protein 6.9 g/dL Invalid Interpretation Code 6.4-8.2 [employer] Phone: [phone] Office Visiton 08-05-2017 Documentation of current medications (procedure) Done Invalid Interpretation Code [employer] Phone: [phone] Protein mass conc Done Invalid Interpretation Code [employer] Work Phone: Chart Maintenanceon 08-01-20 17 Left ventricular Ejection fraction 50 % Invalid Interpretation Code [employer] Work Phone: VL ARTERIAL BILATERAL LOWER EXT [...] PM Sign Date: 05/16/2017 2:47:04 PM Normal [facility] Office Visiton 04-25-2017 Documentation of current medications (procedure) Done Invalid Interpretation Code [employer] Work Phone: Protein mass conc Done [employer] Work Phone: Lab Report: Lipid Profileon 04-17-2017 Cholesterol in HDL mass conc 83 mg/dL Invalid Interpretation Code [employer] Work Phone: Cholesterol in LDL mass conc 67 mg/dL Invalid Interpretation Code 0-130 [employer] Work Phone: Cholesterol mass conc 162 mg/dL Invalid Interpretation Code 200 [employer] Work Phone: [phone] Lipoprotein.pre-beta mass conc 12 mg/dL Invalid Interpretation Code 5-40 [facility] Work Phone: [phone] Triglyceride mass conc 62 mg/dL Invalid Interpretation Code [facility] Work Phone: [phone] Lab Report: Liver Profileon 04-17-2017 Albumin mass conc 3.5 g/dL Invalid Interpretation Code 3.4-5.0 [employer] Work Phone: [phone] Alkaline phosphatase (ALP) 56 U/L Invalid Interpretation Code 45-117 [facility] Work Phone: [phone] ALP enzyme act/vol (Bld) 56 U/L Invalid Interpretation Code 45-117 [facility] Work Phone: [phone] ALT enzyme act/vol 32 U/L Invalid Interpretation Code 12-78 [facility] Work Phone: [phone] AST enzyme act/vol 26 U/L Invalid Interpretation Code 15-37 [facility] Work Phone: [phone] Bilirubin mass conc 0.70 mg/dL Invalid Interpretation Code 0.20-1.00 [facility] Work Phone: [phone] Bilirubin.direct mass conc 0.19 mg/dL Invalid Interpretation Code 0.00-0.30 [facility] Work Phone: [phone] Globulin 3.6 g/dL High 2.3-3.5 [facility] Work Phone: [phone] Globulin mass conc (S) 3.6 g/dL High 2.3-3.5 [facility] Work Phone: [phone] Protein mass conc 7.1 g/dL Invalid Interpretation Code 6.4-8.2 [facility] Work Phone: [phone] Lab Report: T4 Total, Thyrox inon 10-22-2016 Thyroxine (T4) 13.9 ug/dL Invalid Interpretation Code 4.8-13.9 [facility] Work Phone: [phone] Lab Report: Thyroid Stim Hor jaylyn (TSH)on 10-22-2016 Thyroid stimulating hormone (TSH) 0.97 u[iU]/mL Invalid Interpretation Code 0.358-3.74 [facility] Work Phone: [phone] Lab Report: Lipid Profileon 10-15-2016 Cholesterol 175 mg/dL 200 [facility] Work Phone: [phone] HDL Cholesterol 84 mg/dL [facility] Work Phone: [phone] LDL Cholesterol 76 mg/dL 0-130 [facility] Work Phone: [phone] Triglyceride 76 mg/dL [facility] Work Phone: [phone] very low density lipoproteins 15 mg/dL 5-40 [facility] Work Phone: [phone] Lab Report: Liver Profileon 10-15-2016 Alanine aminotransferase (ALT) 28 U/L 12-78 [facility] Work Phone: [phone] Albumin 3.6 g/dL 3.4-5.0 [facility] Work Phone: [phone] Alkaline phosphatase (ALP) 55 U/L Invalid Interpretation Code 45-117 [facility] Work Phone: [phone] ALP enzyme act/vol (Bld) 55 U/L 45-117 [facility] Work Phone: [phone] Aspartate aminotransferase (AST) 23 U/L 15-37 [facility] Work Phone: [phone] Bilirubin (direct) 0.18 mg/dL 0.00-0.30 [facility] Work Phone: [phone] Bilirubin (total) 0.70 mg/dL 0.20-1.00 [facility] Work Phone: [phone] Globulin 3.7 g/dL High 2.3-3.5 [facility] Work Phone: [phone] Globulin mass conc (S) 3.7 g/dL High 2.3-3.5 [facility] Work Phone: [phone] Protein 7.3 g/dL 6.4-8.2 [facility] Work Phone: [phone] Office Visiton 10-15-2016 Documentation of current medications (procedure) Done Invalid Interpretation Code [facility] Work Phone: Protein mass conc Done [facility] [employer] Work Phone: [phone] Tobacco smoking status NHIS Tobacco smoking status NHIS Invalid Interpretation Code [facility] Work Phone: [phone] Tobacco smoking status NHIS Never smoker Invalid Interpretation Code [facility] Work Phone: [phone] Tobacco use CP Never smoker Invalid Interpretation Code [facility] Work Phone: [phone] Replaced Document: Bruce Altamirano 10-15-2016 EKG QRS axis 22 deg Invalid Interpretation Code [facility] Work Phone: [phone] electrocardiogram interpretation Sinus Rhythm Low voltage in precordial leads. ABNORMAL Invalid Interpretation Code [facility] Work Phone: [phone] GE use only - for [employer] import when terms are not otherwise specified 443 ms Invalid Interpretation Code [facility] [employer] Work Phone: [phone] Interpretation Sinus Rhythm Low voltage in precordial leads. ABNORMAL Invalid Interpretation Code [facility] Work Phone: [phone] P [place] 60 deg Invalid Interpretation Code [facility] Work Phone: [phone] P wave axis, electrocardiogram 60 deg Invalid Interpretation Code [facility] Work Phone: [phone] [place] Interval 200 ms Invalid Interpretation Code [facility] Work Phone: [phone] [place] interval, electrocardiogram 200 ms Invalid Interpretation Code [facility] Work Phone: [phone] Pulse (Heart Rate) 63 /min Invalid Interpretation Code [facility] Work Phone: [phone] QRS axis, electrocardiogram 22 deg Invalid Interpretation Code [facility] [employer] Work Phone: [phone] QRS Duration 84 ms Invalid Interpretation Code [facility] Work Phone: [phone] QRS duration, electrocardiogram 84 ms Invalid Interpretation Code [facility] Work Phone: [phone] QT Interval new path ms Invalid Interpretation Code [facility] Work Phone: [phone] QT interval, electrocardiogram new path ms Invalid Interpretation Code [facility] [employer] Work Phone: [phone] QTc Harris 443 ms Invalid Interpretation Code [facility] Work Phone: T [place] 26 deg Invalid Interpretation Code [facility] Work Phone: [phone] T wave axis, electrocardiogram 26 deg Invalid Interpretation Code [facility] Work Phone: [phone] Lab Report: CBC W/Diff, Auto - EPLAB Onlyon 06-28-2016 Basophils/100 leukocytes 0.8 % Invalid Interpretation Code 0-1 [facility] Work Phone: [phone] Basophils/100 WBC (Bld) 0.8 % 0-1 [facility] Work Phone: [phone] Eosinophils/100 leukocytes 1.0 % Invalid Interpretation Code 0-5 [facility] Work Phone: [phone] Eosinophils/100 WBC (Bld) 1.0 % 0-5 [facility] Work Phone: [phone] Erythrocyte distribution width Ratio (RBC) 11.5 % Low 11.6-14.6 [facility] Work Phone: [phone] Erythrocytes (RBC) 4.52 10*6/uL Invalid Interpretation Code 4.2-5.4 [facility] Work Phone: [phone] Hematocrit (HCT) 44.6 % Invalid Interpretation Code 37-47 [facility] Work Phone: [phone] Hematocrit Volume Fraction (Bld) 44.6 % 37-47 [facility] Work Phone: [phone] Hemoglobin (HGB) 15.1 g/dL High 12.0-15.0 [facility] Work Phone: [phone] Lymphocytes 2.37 X10 3/UL Invalid Interpretation Code 0.83-4.51 [facility] Work Phone: [phone] Lymphocytes #/vol (Bld) 2.37 X10 3/UL 0.83-4.51 [facility] Work Phone: [phone] Lymphocytes/100 leukocytes 23.4 % Invalid Interpretation Code 19-41 [facility] Work Phone: [phone] Lymphocytes/100 WBC (Bld) 23.4 % - [facility] Work Phone: [phone] MCH 33.3 pg High 27.0-32.0 [facility] Work Phone: [phone] MCH Entitic mass (RBC) 33.3 pg [...] leukocytes 8.2 % Invalid Interpretation Code 0-10 [facility] Work Phone: [phone] Monocytes/100 WBC (Bld) 8.2 % 0-10 [facility] Work Phone: [phone] neutrophil count, blood 6.8 X10 3/UL Invalid Interpretation Code 2.0-7.7 [facility] Work Phone: [phone] Neutrophils #/vol (Bld) 6.8 X10 3/UL 2.0-7.7 [facility] Work Phone: [phone] Neutrophils Auto #/vol (Bld) 6.8 X10 3/UL Invalid Interpretation Code 2.0-7.7 [facility] Work Phone: [phone] Neutrophils/100 leukocytes 66.7 % Invalid Interpretation Code 47-70 [facility] Work [phone] Neutrophils/100 WBC (Bld) 66.7 % 47-70 [facility] Work Phone: [phone] Platelet mean volume Entitic volume (Bld) 8.9 fL 6.2-12.0 [facility] Work Phone: [phone] Platelets 149 10*3/mm3 Low 150-450 [facility] Work Phone: [phone] Platelets #/vol (Bld) 149 10*3/mm3 Low 150-450 [facility] Work Phone: [phone] PMV by Sanjiv-Aleisha 8.9 fL Invalid Interpretation Code 6.2-12.0 [facility] Work Phone: [phone] RBC #/vol (Bld) 4.52 10*6/uL 4.2-5.4 [facility] Work Phone: [phone] RDW-CA 11.5 % Low 11.6-14.6 [facility] Work Phone: [phone] WBC #/vol (Bld) 10.2 10*3/uL 4.4-11.0 [facility] Work Phone: [phone] WBC (Leukocytes) 10.2 10*3/uL Invalid Interpretation Code 4.4-11.0 [facility] Work Phone: [phone] Lab Report: [facility] 06-28-2016 Albumin/Globulin Ratio 0.9 {ratio} Invalid Interpretation Code 0.9-2.4 [facility] Work Phone: [phone] Anion gap 8 mmol/L Invalid Interpretation Code 5-15 [facility] Work Phone: [phone] Anion gap 4 molar conc 8 Invalid Interpretation Code 5-15 [facility] Work Phone: [phone] Anion gap molar conc 8 mmol/L 5-15 [facility] Work Phone: [phone] BUN/Creatinine Ratio 20.8 RATIO High 10-20 [facility] Work Phone: [phone] Calcium 9.0 mg/dL Invalid Interpretation Code 8.5-10.1 [facility] Work Phone: [phone] Chloride 105 mmol/L Invalid Interpretation Code 98-107 [facility] Work Phone: [phone] CO2 24.0 mmol/L Invalid Interpretation Code 21.0-32.0 [facility] Work Phone: [phone] CO2 ppres (BldV) 24.0 mmol/L Invalid Interpretation Code 21.0-32.0 [facility] Work Phone: [phone] Creatinine 0.87 mg/dL Invalid Interpretation Code 0.55-1.20 [facility] Work Phone: [phone] eGFR (non-black) 82 mL/min/{1.73_m2} Invalid Interpretation Code >60 [facility] Work Phone: [phone] eGFR (non-black) 68 mL/min/{1.73_m2} Invalid Interpretation Code >60 [facility] Work Phone: [phone] EST GFR - AA 82 mL/min Invalid Interpretation Code >60 [facility] Work Phone: [phone] Glucose 96 mg/dL Invalid Interpretation Code 70-110 [facility] [employer] Work Phone: [phone] Glucose mass conc 96 mg/dL Invalid Interpretation Code 70-110 [facility] [employer] Work Phone: [phone] Potassium 4.5 mmol/L Invalid Interpretation Code 3.5-5.1 [facility] [employer] Work Phone: [phone] Sodium 137 mmol/L Invalid Interpretation Code 136-145 [facility] [employer] Work Phone: [phone] Urea nitrogen 18 mg/dL Invalid Interpretation Code 7-18 [facility] [employer] Work Phone: [phone] Lab Report: [facility] 06-28-2016 lactate dehydrogenase - serum 233 U/L Invalid Interpretation Code 84-246 [facility] [employer] Work Phone: [phone] LDH 233 U/L Invalid Interpretation Code 84-246 [facility] [employer] Work Phone: [phone] Lab Report: Magnesiumon 06-05 Magnesium 2.0 mg/dL Invalid Interpretation Code 1.8-2.4 [facility] [employer] Work Phone: [phone] Lab Report: Uric Acidon 06-05 Urate 4.0 mg/dL Invalid Interpretation Code 2.6-6.0 [facility] [employer] Work Phone: [phone] Clinical Lists Update: Prelo peoplesoft consultant 02-17-2016 Left ventricular Ejection fraction 50 % [facility] Work Phone: [phone] Lab Report: ECBCDon 06-02-20 14 Absolute Neutrophil count 6.5 X10 3/UL Normal 2.0-7.7 [facility] Work Phone: [phone] ANC 6.5 X10 3/UL Normal 2.0-7.7 [facility] Work Phone: Vital Signs Date Time Vital Sign Value Performing Clinician Facility 09-30-2024 15:44-0500 Diastolic blood pressure 62 mm[Hg] Linus Fuchs MD Work Phone: [facility] 09-30-2024 15:44-0500 Heart rate 80 /min Linus Fuchs MD Work Phone: [facility] 09-30-2024 15:44-0500 Respiratory rate 20 /min Linus Fuchs MD Work Phone: [facility] 09-30-2024 15:44-0500 SaO2% (BldA) [Mass fraction] 100 % Linus Fuchs MD Work Phone: [facility] 09-30-2024 15:44-0500 Systolic blood pressure 110 mm[Hg] Linus Fuchs MD Work Phone: [facility] 09-30-2024 12:51-0500 Body temperature 98.1 [degF] Linus Fuchs MD Work Phone: [facility] 09-28-2024 11:00-0500 Body temperature 97.88 [degF] ИВАН LOPEZ DO [facility] 09-28-2024 11:00-0500 Diastolic Blood Pressure Non-Invasive 66 mm[Hg] ИВАН LOPEZ DO [facility] 09-28-2024 11:00-0500 Heart rate 64 /min ИВАН LOPEZ DO [facility] 09-28-2024 11:00-0500 Reason For Taking VItal Signs ИВАН LOPEZ DO [facility] 09-28-2024 11:00-0500 Respiratory rate 16 /min ИВАН LOPEZ DO [facility] 09-28-2024 11:00-0500 Systolic Blood Pressure Non-Invasive 112 mm[Hg] ИВАН LOPEZ DO [facility] 03-25-2024 11:20-0400 Body temperature 98.24 [degF] ИВАН LOPEZ DO [facility] 03-25-2024 11:20-0400 Diastolic Blood Pressure Non-Invasive 74 mm[Hg] ИВАН LOPEZ DO [facility] 03-25-2024 11:20-0400 Heart rate 72 /min ИВАН LOPEZ DO [facility] 03-25-2024 11:20-0400 Respiratory rate 18 /min ИВАН LOPEZ DO [facility] 03-25-2024 11:20-0400 Systolic Blood Pressure Non-Invasive 112 mm[Hg] ИВАН LOPEZ DO [facility] 11-29-2023 16:07-0500 Body temperature 98 [degF] [facility] 11-29-2023 16:07-0500 Diastolic blood pressure 60 mm[Hg] [facility] 11-29-2023 16:07-0500 Heart rate 80 /min [facility] 11-29-2023 16:07-0500 Respiratory rate 16 /min [facility] 11-29-2023 16:07-0500 Systolic blood pressure 116 mm[Hg] [facility] 11-29-2023 15:00-0500 SaO2% (BldA) [Mass fraction] 100 % [facility] 11-29-2023 11:11-0500 Body mass index (BMI) [Ratio] 30.7 kg/m2 [facility] 11-29-2023 11:11-0500 Body weight 78.5 kg [facility] 11-29-2023 10:56-0500 Body height 160.02 cm [facility] 09-24-2023 10:42-0500 Blood Pressure Location ИВАН LOPEZ DO [facility] 09-24-2023 10:42-0500 Blood Pressure Method ИВАН LOPEZ DO [facility] 09-24-2023 10:42-0500 Body temperature 97.34 [degF] ИВАН LOPEZ DO [facility] 09-24-2023 10:42-0500 Diastolic Blood Pressure Non-Invasive 64 mm[Hg] ИВАН JESSICA DO [facility] 09-24-2023 10:42-0500 Heart rate 70 /min ИВАН JESSICA DO [facility] 09-24-2023 10:42-0500 Reason For Taking VItal Signs ИВАН JESSICA [facility] 09-24-2023 10:42-0500 Respiratory rate 18 /min ИВАН LOPEZ DO [facility] 09-24-2023 10:42-0500 Systolic Blood Pressure Non-Invasive 125 mm[Hg] ИВАН LOPEZ DO [facility] 08-05-2017 08:34-0400 BMI (Body Mass Index) [...] 08:34-0400 Respiratory Rate 16 /min [facility] Work Phone: 08-05-2017 08:34-0400 Weight 69.4 kg [facility] Work Phone: 04-25-2017 14:23-0400 BP Diastolic 64 mm[Hg] [facility] Work Phone: 04-25-2017 14:23-0400 BP Systolic 148 mm[Hg] [facility] Work Phone: 04-25-2017 14:23-0400 Height 162.56 cm [facility] Work Phone: 04-25-2017 14:23-0400 Pulse (Heart Rate) 66 /min [facility] Work Phone: 04-25-2017 14:23-0400 Respiratory Rate 18 /min [facility] Work Phone: 10-15-2016 14:26-0500 Heart rate 63 /min Augusto Carter MD [facility] Work Phone: 10-15-2016 13:41-0500 BMI (Body Mass Index) 26.77 kg/m2 Augusto Carter MD [facility] Work Phone: 10-15-2016 13:41-0500 BP Diastolic 92 mm[Hg] Augusto Carter MD [facility] Work Phone: 10-15-2016 13:41-0500 BP Systolic 150 mm[Hg] Augusto Carter MD [facility] Work Phone: 10-15-2016 13:41-0500 BSA (Body Surface Area) 1.76 m2 Augusto Carter MD [facility] Work Phone: 10-15-2016 13:41-0500 Height 162.56 cm Augusto Carter MD [facility] Work Phone: 10-15-2016 13:41-0500 Pulse (Heart Rate) 66 /min Augusto Carter MD [facility] Work Phone: 10-15-2016 13:41-0500 Respiratory Rate 16 /min Augusto Carter MD [facility] Work Phone: 10-15-2016 13:41-0500 Weight 70.76 kg Augusto Carter MD [facility] Work Phone: 06-28-2016 13:23-0400 Body Temperature 97.2 [degF] Augusto Carter MD [facility] Work Phone: 06-28-2016 13:23-0400 Height 162.56 cm Augusto Carter MD [facility] Work Phone: 06-28-2016 13:23-0400 Pulse Oximetry 96 % Augusto Carter MD [facility] Work Phone: 06-28-2016 13:23-0400 Weight 76.73 kg Augusto Carter MD [facility] Work Phone: 03-23-2016 11:13-0400 Pulse Oximetry 93 % Augusto Carter MD [facility] Work Phone: Encounters Encounter Date Encounter Type Care Provider Facility Start: 09-05-2025 End: 09-05-2025 Emergency department patient visit Иван Lopez Facility:[facility] Start: 08-26-2025 ambulatory ИВАН LOPEZ DO Facil ity:[facility] Start: 06-15-2025 End: 06-19-2025 ambulatory ИВАН LOPEZ DO [facility] Start: 06-15-2025 End: 06-19-2025 Outreach Lab [employer] 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 MANAGER [facility] Start: 06-14-2025 End: 06-18-2025 ambulatory ИВАН LOPEZ DO [facility] Start: 06-14-2025 End: 06-18-2025 Outreach Lab [employer] 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 MANAGER [facility] Start: 03-31-2025 End: 03-31-2025 ambulatory ИВАН LOPEZ DO [facility] Start: 03-31-2025 End: 03-31-2025 SAME DAY STAY ИВАН LOPEZ DO [facility] Start: 02-26-2025 End: 03-02-2025 ambulatory ИВАН LOPEZ DO [facility] Start: 02-26-2025 End: 03-02-2025 Outreach Lab ИВАН LOPEZ DO [facility] Start: 02-19-2025 End: 02-19-2025 ambulatory ИВАН LOPEZ DO [facility] Start: 12-23-2024 End: 12-23-2024 ambulatory Иван Lopez Facility:[facility] Start: 11-18-2024 End: 11-18-2024 ambulatory Иван Lopez Facility:[facility] Start: 10-07-2024 End: 10-11-[address] RAMEZ BRUSH DO [facility] Start: 10-07-2024 End: 10-11-[address] RAMEZ BRUSH DO [facility] Start: 10-06-2024 End: 10-10-2024 ambulatory ИВАН LOPEZ DO [facility] Start: 10-06-2024 End: 10-10-[address] RAMEZ BRUSH DO [facility] Start: 09-30-2024 End: 09-30-2024 Emergency department patient visit Linus Fuchs MD Work Phone: [facility] Comment on above: Closed head injury, initial encounter (Primary Dx); Fall, initial encounter; Vasovagal syncope Start: 09-28-2024 ambulatory Tai Krishna Facility:[facility] Start: 09-28-2024 End: 09-28-2024 SAME DAY STAY ИВАН JESSICA DO [facility] Start: 09-28-2024 End: 09-28-2024 ambulatory ИВАН ALEXANDRAY DO [facility] Start: 09-21-2024 End: 09-21-2024 ambulatory Иван Jessica Facility:[facility] Start: 03-25-2024 End: 03-25-2024 ambulatory ИВАНVERN ALEXANDRAY DO Facility:[facility] Start: 03-25-2024 End: 03-25-2024 SAME DAY STAY ИВАН ALEXANDRAY DO [facility] Start: 03-17-2024 End: 03-18-2024 ambulatory ИВАН ALEXANDRAY DO Facility:[facility] Start: 03-17-2024 End: 03-17-2024 Patient encounter procedure ИВАН RICHARDSONLAY DO [facility] Start: 03-04-2024 End: 03-09-2024 ambulatory ИВАН LOPEZ DO Facility:[facility] Start: 03-04-2024 End: 03-08-2024 Outreach Lab ИВАН LOPEZ DO [facility] Start: 02-04-2024 End: 02-05-2024 ambulatory ИВАН ALEXANDRAY DO Facility:[facility] Start: 02-04-2024 End: 02-04-2024 Patient encounter procedure ИВАН RICHARDSONLAY DO [facility] Start: 01-13-2024 End: 01-14-2024 ambulatory ИВАН ALEXANDRAY DO Facility:[facility] Start: 01-13-2024 End: 01-13-2024 Patient encounter procedure ИВАНVERN RICHARDSONLAY DO [facility] Start: 11-29-2023 End: 11-29-2023 Emergency department patient visit [facility] Work Phone: Start: 09-24-2023 End: 09-24-2023 ambulatory ИВАН LOPEZ DO Facility:[facility] Start: 09-24-2023 End: 09-24-2023 SAME DAY STAY ИВАН LOPEZ DO [facility] Start: 11-30-2022 End: 12-04-2022 Outreach Lab JHON HOOD DO [facility] Start: 11-24-2022 End: 11-28-2022 Outreach Lab JHON HOOD DO [facility] Start: 08-23-2022 End: 08-27-2022 Outreach Lab ИВАН LOPEZ DO [facility] Start: 02-02-2022 End: 02-02-2022 Patient encounter procedure ИВАН LOPEZ DO [facility] Start: 10-23-2021 End: 10-23-2021 Patient encounter procedure ИВАН LOPEZ DO [facility] Start: 04-12-2018 Emergency department patient visit UNKNOWN PROVIDER [facility] Start: 05-16-2017 Ambulatory [facility] Facility: [facility] Date Procedure Procedure [...] Start: 04-05-2016 End: 04-05-2016 Thyroxine (T4) Augusto aCrter MD Work Phone: Start: 03-23-2016 End: 03-23-2016 [...] DTaP/Tdap/Td Vaccines (2 - Td or Tdap) [facility] Start: 11-29-2023 [facility] Start: 11-04-2023 Medicare Advantage Annual Wellness Visit Medicare Advantage Annual Wellness Visit [facility] Start: 02-24-2018 End: 02-24-2018 Appointment Appointment [facility] Work Phone: Start: 10-17-2017 End: 04-17-2017 *Hepatic Function Panel *Hepatic Function Panel [facility] Work Phone: Start: 10-17-2017 End: 04-17-2017 Lipid 1996 panel *Lipid Profile CC PCP [facility] Work Phone: Start: 10-17-2017 End: 10-17-2017 *Hepatic Function Panel *Hepatic Function Panel [facility] Work Phone: Start: 10-17-2017 End: 10-17-2017 Lipid panel [AGGREGATE] *Lipid Profile CC PCP [facility] Work Phone: Start: 08-05-2017 End: 08-05-2017 RUTHANN BEAVERS [facility] Work Phone: Start: 08-05-2017 End: 08-05-2017 Follow Up Appt 6 months Follow Up Appt 6 months [facility] Work Phone: Start: 08-05-2017 End: 08-05-2017 Appointment Appointment [facility] Work Phone: Start: 08-05-2017 End: 08-05-2017 RUTHANN BEAVERS [facility] Work Phone: Start: 08-05-2017 End: 08-05-2017 Follow Up Appt 6 months Follow Up Appt 6 months [facility] Work Phone: Start: 07-29-2017 End: 07-29-2017 Appointment Appointment [facility] Work Phone: Start: 04-25-2017 End: 04-25-2017 RUTHANN BEAVERS [facility] Work Phone: Start: 04-25-2017 End: 04-25-2017 Follow Up Appt 3 months Follow Up Appt 3 months [facility] Work Phone: Start: 04-25-2017 End: 04-25-2017 Venous doppler Venous doppler [facility] Work Phone: Start: 04-25-2017 End: 04-25-2017 Appointment Appointment [facility] Work Phone: Start: 04-25-2017 End: 04-25-2017 Appointment Appointment [facility] Work Phone: Start: 04-25-2017 End: 04-25-2017 RUTHANN BEAVERS [facility] Work Phone: Start: 04-25-2017 End: 04-25-2017 Follow Up Appt 3 months Follow Up Appt 3 months [facility] Work Phone: Start: 04-25-2017 End: 04-25-2017 Venous doppler Venous doppler [facility] Work Phone: Start: 04-15-2017 End: 04-17-2017 *Hepatic Function Panel *Hepatic Function Panel [facility] Work Phone: Start: 04-15-2017 End: 04-17-2017 Lipid 1996 panel *Lipid Profile CC PCP [facility] Work Phone: Start: 04-15-2017 End: 04-17-2017 *Hepatic Function Panel *Hepatic Function Panel [facility] Work Phone: Start: 04-15-2017 End: 04-17-2017 Lipid panel [AGGREGATE] *Lipid Profile CC PCP [facility] [employer] Work Phone: Start: 10-15-2016 End: 10-15-2016 DJN DJN [facility] [employer] Work Phone: Start: 10-15-2016 End: 10-15-2016 Ecg routine ecg w/least 12 lds w/i&r EKG (In office) [facility] [employer] Work Phone: Start: 10-15-2016 End: 10-15-2016 Follow Up Appt 6 months Follow Up Appt 6 months [facility] [employer] Work Phone: Start: 10-15-2016 End: 10-15-2016 T4 mass conc *T4 (Total) [facility] [employer] Work Phone: Start: 10-15-2016 End: 10-15-2016 Thyrotropin Qn *TSH [facility] [employer] Work Phone: Start: 10-15-2016 End: 10-15-2016 DJN PATRICIAN [facility] Work Phone: Start: 10-15-2016 End: 10-15-2016 Electrocardiogram, complete EKG (In office) [facility] Work Phone: Start: 10-15-2016 End: 10-15-2016 Follow Up Appt 6 months Follow Up Appt 6 months [facility] [employer] Work Phone: Start: 10-15-2016 End: 10-15-2016 Thyroid stimulating hormone (TSH) *TSH [facility] [employer] Work Phone: Start: 10-15-2016 End: 10-15-2016 Thyroxine (T4) *T4 (Total) [facility] Work Phone: Start: 10-05-2016 End: 10-15-2016 *Hepatic Function Panel *Hepatic Function Panel [facility] Work Phone: Start: 10-05-2016 End: 10-15-2016 Lipid 1996 panel *Lipid Profile CC PCP [facility] Work Phone: Start: 10-05-2016 End: 10-15-2016 *Hepatic Function Panel *Hepatic Function Panel [facility] Work Phone: Start: 10-05-2016 End: 10-15-2016 Lipid panel [AGGREGATE] *Lipid Profile CC PCP [facility] Work Phone: Start: 08-27-2016 End: 08-27-2016 Follow up Appt 1x/week Follow up Appt 1x/week [facility] Work Phone: Start: 08-27-2016 End: 08-27-2016 Follow up Appt 1x/week Follow up Appt 1x/week [facility] Work Phone: Start: 08-20-2016 End: 08-20-2016 Follow up Appt 1x/week Follow up Appt 1x/week [facility] Work Phone: Start: 08-20-2016 End: 08-20-2016 Follow up Appt 1x/week Follow up Appt 1x/week [facility] Work Phone: Start: 08-16-2016 End: 08-16-2016 Follow up Appt 1x/week Follow up Appt 1x/week [facility] Work Phone: Start: 08-16-2016 End: 08-16-2016 Follow up Appt 1x/week Follow up Appt 1x/week [facility] Work Phone: Start: 08-13-2016 End: 08-13-2016 Follow up Appt 2x/week Follow up Appt 2x/week [facility] Work Phone: Start: 08-13-2016 End: 08-13-2016 Follow up Appt 2x/week Follow up Appt 2x/week [facility] Work Phone: Start: 08-09-2016 End: 08-09-2016 Follow up Appt 2x/week Follow up Appt 2x/week [facility] Work Phone: Start: 08-09-2016 End: 08-09-2016 Follow up Appt 2x/week Follow up Appt 2x/week [facility] Work Phone: Start: 08-07-2016 End: 08-07-2016 Follow up Appt 3x/week Follow up Appt 3x/week [facility] Work Phone: Start: 08-06-2016 End: 08-07-2016 Follow up Appt 3x/week Follow up Appt 3x/week [facility] Work Phone: Start: 08-06-2016 End: 08-06-2016 Follow up Appt 3x/week Follow up Appt 3x/week [facility] Work Phone: Start: 08-02-2016 End: 08-06-2016 Follow up Appt 3x/week Follow up Appt 3x/week [facility] Work Phone: Start: 08-02-2016 End: 08-06-2016 Follow up Appt 3x/week Follow up Appt 3x/week [facility] Work Phone: Start: 07-30-2016 End: 07-30-2016 Follow up Appt 3x/week Follow up Appt 3x/week [facility] Work Phone: Start: 07-30-2016 End: 07-30-2016 Follow up Appt 3x/week Follow up Appt 3x/week [facility] Work Phone: Start: 07-24-2016 End: 07-24-2016 Follow up Appt 3x/week Follow up Appt 3x/week [facility] Work Phone: Start: 07-24-2016 End: 07-24-2016 Follow up Appt 3x/week Follow up Appt 3x/week [facility] Work Phone: Start: 06-28-2016 End: 05-08-2016 *CBC with Differential *CBC with Differential [facility] Work Phone: Start: 06-28-2016 End: 05-08-2016 *CMP Complete Metabolic Panel *CMP Complete Metabolic Panel [facility] Work Phone: Start: 06-28-2016 End: 05-08-2016 LDH enzyme act/vol *LDH -LDH (Lactate Dehydrogenase) [facility] Work Phone: Start: 06-28-2016 End: 05-08-2016 Magnesium mass conc *Magnesium [facility] Work Phone: Start: 06-28-2016 End: 05-08-2016 Urate mass conc *Uric Acid Blood [facility] Work Phone: Start: 06-28-2016 End: 05-08-2016 *CBC with Differential *CBC with Differential [facility] Work Phone: Start: 06-28-2016 End: [...] stress test -Lexiscan Nuclear stress test -Lexiscan [facility] Work Phone: Start: 05-28-2016 End: 05-28-2016 Nuclear stress test -Lexiscan Nuclear stress test -Lexiscan [facility] Work Phone: Start: 04-06-2016 End: 04-05-2016 *Hepatic Function Panel *Hepatic Function Panel [facility] Work Phone: Start: 04-06-2016 End: 04-05-2016 Lipid 1996 panel *Lipid Profile CC PCP [facility] Work Phone: Start: 04-06-2016 End: 04-05-2016 T4 mass conc *T4 (Total) [facility] Work Phone: Start: 04-06-2016 End: 04-05-2016 Thyrotropin Qn *TSH [facility] Work Phone: Start: 04-06-2016 End: 04-05-2016 *Hepatic Function Panel *Hepatic Function Panel [facility] Work Phone: Start: 04-06-2016 End: 04-05-2016 Lipid panel [AGGREGATE] *Lipid Profile CC PCP [facility] [employer] Work Phone: Start: 04-06-2016 End: 04-05-2016 Thyroid stimulating hormone (TSH) *TSH [facility] Work Phone: Start: 04-06-2016 End: 04-05-2016 Thyroxine (T4) *T4 (Total) [facility] Work Phone: Start: 03-23-2016 End: 03-23-2016 RUTHANN BEAVERS [facility] Work Phone: Start: 03-23-2016 End: 03-23-2016 Follow Up Appt 6 months Follow Up Appt 6 months [facility] Work Phone: Start: 03-23-2016 End: 03-23-2016 Follow Up BP Check Follow Up BP Check [facility] Work Phone: Start: 03-23-2016 End: 03-23-2016 RUTHANN BEAVERS [facility] Work Phone: Start: 03-23-2016 End: 03-23-2016 Follow Up Appt 6 months Follow Up Appt 6 months [facility] Work Phone: Start: 03-23-2016 End: 03-23-2016 Follow Up BP Check Follow Up BP Check [facility] Work Phone: Start: 2015 RSV Immunization for Adults (1 - 1-dose 75+ series) RSV Immunization for Adults (1 - 1-dose 75+ series) [facility] Start: 1952 Depression Monitoring Depression Monitoring [facility] Start: 1940 Screening for osteoporosis Bone Density Scan [facility] Patient Education [facility] Work Phone: Patient referral [facility] Work Phone: Immunizations Immunization Date Immunization Notes Care Provider Patricia tee 09-24-2024 influenza virus vacc ine, unspecified formulation ИВАН LOPEZ DO [facility] 09-24-2024 zoster vaccine recombinant ИВАН LOPEZ DO [facility] 07-21-2024 SARS-CoV-2 (COVID-19 ) [id number] ИВАН LOPEZ DO [facility] Comment on above: Result Comment: 2023: [id number] 10-01-2023 tetanus toxoid, redu edita diphtheria toxoid, and acellular pertussis vaccine, adsorbed ИВАН LOPEZ DO [facility] 09-27-2023 zoster vaccine recombinant ИВАН LOPEZ DO [facility] 09-23-2023 influenza virus vacc ine, unspecified formulation ИВАН LOPEZ DO [facility] 09-18-2023 SARS-CoV-2 (COVID-19 ) [id number] ИВАН LOPEZ DO [facility] 08-23-2022 COVID-19, mRNA, LNP- S, bivalent booster, PF, 30 mcg/0.3 mL dose; Translations: [[employer] Mobile COVID-19 (12y+) Bivalent Booster Vaccine PF] ИВАН LOPEZ DO [facility] 08-23-2022 influenza, high dose seasonal, preservative-free ИВАН JESSICA DO [facility] 08-23-2022 SARSCoV2 mRNA(yltzuaykrao18t+)biv al vac; Translations: [Pfizer-BioNTech COVID-19 (12y+) Bivalent Booster Vaccine PF] ИВАН JESSICA DO [facility] 09-07-2021 COVID-19, mRNA, LNP- S, PF, 30 mcg/0.3 mL dose; Translations: [Pfizer-BioNTech COVID-19 Vaccine] ИВАН JESSICA DO [facility] 08-11-2021 influenza, high dose seasonal, preservative-free; Translations: [Fluad Quadrivalent PF ] ИВАН LOPEZ DO [facility] 01-31-2021 SARS-CoV-2 mRNA (tozinameran) vaccine ИВАН LOPEZ DO [facility] 01-10-2021 SARS-CoV-2 mRNA (tozinameran) vaccine ИВАН LOPEZ DO [facility] Comment on above: Result Comment: 2020: [id number] 09-09-2020 influenza, injectabl e, quadrivalent, preservative free; Translations: [Fluarix PF Quadrivalent ] ИВАН LOPEZ DO [facility] 09-03-2019 influenza, injectabl e, quadrivalent, preservative free; Translations: [Fluarix PF Quadrivalent ] ИВАН LOPEZ DO [facility] 08-11-2018 influenza virus vacc ine, unspecified formulation ИВАН LOPEZ DO [facility] 08-22-2017 Influenza virus vaccine [facility] 08-22-2017 influenza virus vacc ine, unspecified formulation ИВАН RICHARDSONLAY DO [facility] 08-14-2016 influenza virus vacc ine, unspecified formulation ИВАН JESSICA DO [facility] 07-19-2015 influenza virus vacc ine, unspecified formulation ИВАН RICHARDSONLAY DO [facility] 07-19-2015 pneumococcal conjuga te vaccine, 13 valent ИВАН JESSICA DO [facility] 09-09-2014 influenza virus vacc ine, unspecified formulation ИВАН LOPEZ DO [facility] 08-24-2013 influenza virus vacc ine, unspecified formulation ИВАН RICHARDSONLAY DO [facility] 08-25-2012 influenza virus vacc ine, unspecified formulation ИВАН RICHARDSONLAY DO [facility] 08-04-2012 zoster vaccine, live ИВАН JESSICA DO [facility] 08-03-2012 zoster vaccine, live ИВАН JESSICA DO [facility] 04-04-2008 tetanus and diphther ia toxoids, adsorbed, preservative free, for adult use (5 Lf of tetanus toxoid and 2 Lf of diphtheria toxoid) ИВАН ALEXANDRAY DO [facility] 04-03-2008 tetanus and diphther ia toxoids, adsorbed, preservative free, for adult use (5 Lf of tetanus toxoid and 2 Lf of diphtheria toxoid) ИВАН JESSICA DO [facility] 08-28-2006 pneumococcal polysaccharide vaccine, 23 valent ИВАН LOPEZ DO [facility] Payers Date Payer Category Payer Private Health Insurance [id number] 2025 Unknown 2024 Medicare HMO [employer] [place] [id number] 2023 Self-pay [id number] 2015 Unknown [id number] 1940 Unknown [id number] ..840.1.974003.3.579. 2.627 1940 Unknown [id number] 12.20.830.1.397008.3.579. 2.627 1940 Unknown [id number] 2.16.840.1.769426.3.579. 2.627 1940 Unknown [id number] 2.16840.1.307864.3.579. 2.627 1940 Unknown [id number] 2.16840.1.900237.3.579. 2.627 1940 Unknown [id number] 2.16840.1.216818.3.579. 2.627 1940 Unknown [id number] 2.16840.1.476307.3.579. 2.627 1940 Unknown [id number] 2.840.1.307881.3.579. 2.627 1940 Unknown [id number] 2.840.1.863592.3.579. 2.627 1940 Unknown [id number] 2.840.1.245994.3.579. 2.627 1940 Unknown [id number] 2.840.1.011084.3.579. 2.627 1940 Unknown [id number] 2.840.1.915154.3.579. 2.627 1940 Unknown [id number] 2.16840.1.796790.3.579. 2.627 1940 Unknown [id number] 2.840.1.190568.3.579. 2.627 1940 Unknown [id number] 2.840.1.149816.3.579. 2.627 Medicare MEDICARE PART A B [id number] Unknown [id number] 2.16840.1.185837.3.579. 2.462 Unknown [id number] 2.16.840.1.126957.3.579. 2.462 Unknown [id number] 2.16.840.1.129998.3.579. 2.462 Unknown [id number] 2.16.840.1.716690.3.579. 2.462 Unknown [id number] 2.16.840.1.886132.3.579. 2.462 Unknown [id number] 2.16.840.1.041039.3.579. 2.462 Social History Date Type Detail Facility Start: 04-07-2021 End: 05-11-2025 Never smoked tobacco (finding) [facility] Start: 1940 Sex Assigned At Female [facility] Start: 11-29-2023 [facility] Start: 05-09-2018 None [facility] Start: 05-09-2018 With Family [facility] Start: 05-23-2018 Non-smoker [facility] Start: 1940 Sex assigned at Not on file [facility] Start: 09-28-2019 End: 06-04-2022 Sex Female (finding) [facility] Gender identity Not on file [facility] Sexual Orientation [facility] Medical Equipment Procedure Code Equipment [...] Level Of Cons ciousness Awake;Alert;Appropriate;Follow s Commands [facility] Work Phone: 09-24-2023 Mental Status Orientation Oriented x 4 [facility] Clinical Notes 01-13-2024 to 06-18-2025 Discharge Yossi [...] Locations *1: This test was performed at: [facility], [address] [place] [address], [facility] , [facility] 06-16-2025 Note . MICRO - Microbiology PROCEDURE: Shiga Toxins 1 and 2 [[id number]: [id number] ^1 *1] SOURCE: Stool BODY SITE: COLLECTED [...] Locations *1: This test was performed at: [address], [address]- , [facility] 06-16-2025 Note . MICRO - Microbiology [...] Locations *1: This test was performed at: [address], [address]- , [facility] 06-15-2025 Note . MICRO - Microbiology [...] Locations *1: This test was performed at: [address], [address] [place] [address] 03-31-2025 Nurse Progress note patient tolerated prolia injection without signs or symptoms of a reaction Digitally Signed by Sara Keith RN on 03/31/2025 11:24 AM [facility] 10-09-2024 Note . MICRO - Microbiology [...] Locations *1: This test was performed at: [facility], [address] [place] [address], [place], [address]- , [place] [facility] 09-30-2024 Hospital Discharg e instructions Anthony Richey MD - 09/30/2024 2:12 PM EST Please return the emergency department if you develop chest pain shortness of breath nausea vomiting back pain or you pass out documented in this encounter [facility] 09-30-2024 Emergency department Note Emergency Department Encounter [facility] Patient: Henry Degroot : [...] for clarification.) Toi Miller MD Acute Care [facility] Toi Miller MD 09/30/24 1524 documented in this encounter [facility] 09-30-2024 Physician Emergency department Note Emergency Department Encounter [facility] Patient: Henry Degroot : [...] [employer] Toi Miller MD 09/30/24 1524 [facility] Phone: 09-28-2024 Nurse Progress note patient tolerated prolia injection without signs or symptoms of a reaction Digitally Signed by Sara Keith RN on 09/28/2024 11:12 AM [facility] 01-13-2024 Note ORIGINAL EXAMINATION: BONE DENSITOMETRY [...] 01/13/2024 10:46:45 AM Ordering Provider: ИВАН LOPEZ [facility] Evaluation + Plan note Future Appointments Appointment Date:02/09/2022 10:30:00 AM Scheduled Provider:ИВАН LOPEZ DO Location:[facility] Appointment Type:PC OV Future Scheduled TestsBD Bone Density DEXA Axial Skeleton 10/23/21 [facility] Evaluation + Plan note Future Appointments Appointment Date:02/09/2022 10:30:00 AM Scheduled Provider:ИВАН LOPEZ DO Location:[facility] Appointment Type:PC OV [facility] Evaluation + Plan note Future Appointments Appointment Date:02/26/2023 10:30:00 AM Scheduled Provider:ИВАН LOPEZ DO Location:[facility] Appointment Type:PC OV [facility] Evaluation + Plan note Future Appointments Appointment Date:02/26/2023 10:30:00 AM Scheduled Provider:ИВАН LOPEZ DO Location:[facility] Appointment Type:PC OV Future Scheduled TestsUrinalysis 11/27/22Urine Culture 11/27/22 [facility] Evaluation + Plan note Future Appointments Appointment Date:09/25/2023 09:00:00 AM Scheduled Provider:ИВАН LOPEZ DO Location:[facility] Evaluation + Plan note Future Appointments Appointment Date:02/27/2024 09:30:00 AM Scheduled Provider:ИВАН LOPEZ DO Location:[facility] Appointment Type:PC Wellness [facility] Evaluation + Plan note Future Appointments Appointment Date:08/20/2024 11:00:00 AM Scheduled Provider:ИВАН LOPEZ DO Location:[facility] Appointment Type:PC OV Future Scheduled TestsMA Mammo Screening Left w/ Richard 02/27/24 [facility] Evaluation + Plan note Future Appointments Appointment Date:03/25/2024 11:30:00 AM Scheduled Provider: Location:[facility] Appointment Type:INF Injection - Prolia Appointment Date:08/20/2024 11:00:00 AM Scheduled Provider:ИВАН LOPEZ DO Location:[facility] Appointment Type:PC OV [facility] Evaluation + Plan note Future Appointments Appointment Date:08/20/2024 11:00:00 AM Scheduled Provider:ИВАН LOPEZ DO Location:[facility] Appointment Type:PC OV [facility] Evaluation + Plan note Future Appointments Appointment Date:02/19/2025 10:30:00 AM Scheduled Provider:ИВАН LOPEZ DO Location:[facility] Appointment Type:PC Wellness [facility] Enhanced Future Scheduled TestsThyroid Stimulating Hormone 02/05/25Complete Blood Count 02/05/25Lipid Profile 02/05/25Vitamin D Level 02/05/25Complete Metabolic Panel 02/05/25 [facility] Evaluation + Plan note Future Appointments Appointment Date:03/03/2026 09:30:00 AM Scheduled Provider:ИВАН LOPEZ DO Location:[facility] Appointment Type:PC Wellness [facility] Enhanced Future Scheduled TestsUrinalysis w/ C&S if Indicated 11/18/24Urine Culture 11/18/24Urine Culture 11/20/24 [facility] Evaluation note No assessment inform ation available [facility] Work Phone: Evaluation note Diagnosis Closed head injury, initial encounter- Primary Fall, initial encounter Vasovagal syncope Syncope and collapse [facility] Narr[facility] No data available for this section [facility] Hospital Discharge instructions No data available for this section [facility] Progress note No data available for this section [facility] Summary Purpose Family History No Family History Records Found Relationship Condition Age at Onset Recorded Date/T saniya father Coronary artery disease Unknown aunt Malignant neoplasm of breast Unknown sister Malignant neoplasm of uterus Unknown Advance Directives No Advanced Directives Records Found Advance Directive Response Recorded Date/ Time Advance Directives Yes May 02 1:35pm Living Will Yes November 29 11:11am Power of Fire Extinguisher Inspector Yes November 29, 2023 11:11am Name of Medical Power of Fire Extinguisher Inspector GEORGINA DEGROOT November 29, 2023 11:11am Healthcare Agents on File Name Relationship Healthcare Agent [facility] p Alka Morales Daughter Health Care Agent Chief Complaint and Reason for Visit Chief Complaint GEN ILLNESS Additional Source Comments INFORMATION SOURCE (unrecogn ized section and content) DATE CREATED AUTHOR 04/30/2018 [facility] DATE CREATED AUTHOR AUTHOR'S ORGANIZ ATION 05/01/[address] [facility] [facility] DATE CREATED AUTHOR AUTHOR'S ORGANIZ ATION 07/07/2020 [facility] DATE CREATED AUTHOR AUTHOR'S ORGANIZ ATION 03/27/2024 [facility] ([place]) DATE CREATED AUTHOR AUTHOR'S ORGANIZ ATION 10/03/[address] [facility] [employer] [facility] DATE CREATED AUTHOR AUTHOR'S ORGANIZ ATION 08/28/2025 [facility] DATE CREATED AUTHOR AUTHOR'S ORGANIZ ATION 09/16/2025 [facility] Care Team (unrecognized sect ion and content) Team Status: Active Member Role Status Dates Dr. Raquel Dumont MD Family Provider Active Dr. Иван Lopez , Primary Care Provider Active Team Status: Inactive Member Role Status Dates Dr. Иван Lopez DO Primary Care Provider Active Dr. Thomas Mayen DO Emergency Provider Active [place] Specialist Relationship Specialty Start Date End Date Иван Lopez DO [address] [facility] [place] [address] PCP - General Family Medicine 09/30/24 Care Team (unrecognized sect ion and content) Care Team Personnel Name: JOSE STOCKTON Member Role: Chiropractor Address: Address: [address] [place], [place] [address] Name: GRACIELA PEDROZA MD Position: [facility] Physician Member Role: Neurologist Address: Address: [address] [place] [address]- Name: FRANCHESCA BERG MD Member Role: Oncologist Address: Address: [address] [place] [address]- Name: TOI COLMENARES MD Member Role: Multifocal Lens Inspector Address: Address: [address] [place] [address]- Name: ИВАН LOPEZ DO Position: P4 Physician - Primary Care Member Role: Primary Care Physician Address: Address: [address] [place] [address]- Name: MATT RAMIREZ MD Member Role: Eating Disorder Specialist Address: Address: [address] [place] [address] [place] Name: MARGARET MORALES MD Member Role: Sr. Pricing Analyst Address: Address: [address] [address]- Name: MAGDY SYED Member Role: Forest Practices Field Coordinator Address: Address: [address] [address]- Name: GROVER FLORES DPM Position: Physician Member Role: Design Lead Address: Address: [address] [facility], [address] [facility] [place] [address]- Care Team Related Persons Name: KATIE DEGROOT Name: ISABEL DEGROOT Care Team Personnel Name: JOSE STOCKTON Member Role: Chiropractor Address: Address: [address] [place] [address]- Name: GRACIELA PEDROZA MD Position: [facility] Physician Member Role: Neurologist Address: Address: [address] [facility] [place] [address]- Name: FRANCHESCA BERG MD Member Role: Oncologist Address: Address: [address] [place] [address]- Name: TOI COLMENARES MD Member Role: Multifocal Lens Inspector Address: Address: [address] [place] [address]- Name: ИВАН LOPEZ DO Position: P4 Physician - Primary Care Member Role: Primary Care Physician Address: Address: [address] [place] [address]- [place] Name: MATT RAMIREZ MD Member Role: Eating Disorder Specialist Address: Address: [address] [place] [address] [place] Name: MARGARET MORALES MD Member Role: Sr. Pricing Analyst Address: Address: [address] [place] [address]- [place] Name: MAGDY SYED Member Role: Forest Practices Field Coordinator Address: Address: [address] [facility] [address] [place] [address]- [place] Name: GROVER FLORES DPM Position: Physician Member Role: Design Lead Address: Address: [address] [facility], [address] [facility] [place] [address]- [place] Care Team Related Persons Name: KATIE DEGROOT Name: ISABEL DEGROOT Care Team Personnel Name: JOSE STOCKTON Member Role: Chiropractor Address: Address: [address] [place] [address]- [place] Name: GRACIELA PEDROZA MD Position: [facility] Physician Member Role: Neurologist Address: Address: [address] [facility] [place] [address]- [place] Name: FRANCHESCA BERG MD Member Role: Oncologist Address: Address: [address] [place] [address]- [place] Name: TOI COLMENARES MD Member Role: Multifocal Lens Inspector Address: Address: [address] [facility] [place] [address]- [place] Name: ИВАН LOPEZ DO Position: Physician - Primary Care Member Role: Primary Care Physician Address: Address: [address] [place] [address]- [place] Name: MATT RAMIREZ MD Member Role: Eating Disorder Specialist Address: Address: [address] [place] [address] [place] Name: MARGARET MORALES MD Member Role: Sr. Pricing Analyst Address: Address: [address] [facility] [address] [place] [address]- [place] Name: MAGDY SYED Member Role: Forest Practices Field Coordinator Address: Address: [address] [facility] [address] [place] [address]- [place] Name: GROVER FLORES DPM Position: Physician Member Role: Design Lead Address: Address: [address] [facility], [address] [facility] [place] [address]- Care Team Related Persons Name: ZANE KATIE [...] BE BASED ON THE PRIMARY CLINICAL RECORDS. [facility] [employer] provides no warranty or guarantee of the accuracy or completeness of information in this document.
== END | disposition home or self-care (01) ==
LOC: RAD 11:50
PROVIDERS: PCP Family Medicine; Referring Provider Internal Medicine Gastroenterology; Visit Provider Internal Medicine Gastroenterology
DX: R19.7 Diarrhea, unspecified (principal)
CPT/HCPCS: 74018